=== PATIENT | male | born 1955 | race Hispanic/Latino ===

== ENCOUNTER 2016-08-13 09:33 | Inpatient (IN) | payer OTHER ==
[2016-08-13 10:11] VITALS: BMI 29.0
[2016-08-13] MEDS ORDERED: Sodium Chloride 0.9% 1,000 ML IV STA (10:17)
[2016-08-13] MEDS: Sodium Chloride 0.9% 1,000 ML IV SCH ×3 (10:25→22:24)
[2016-08-13 10:31] LABS: HEMATOCRIT 50.6 % (42.0-52.0); MEAN CORPUSCULAR HEMOGLOBIN 30.6 pg (25.0-35.0); MEAN CORPUSCULAR HGB CONC 34.8 g/dl (31.0-37.0); MEAN PLATELET VOLUME 10.7 fl (7.0-11.0); RED CELL DISTRIBUTION WIDTH 13.4 % (11.5-14.5); WHITE BLOOD COUNT 16.1 10^3/ul (4.5-11.0)
--- NOTE | 2016-08-13 10:38 | ED PDOC ---
Arrival/HPI - General Historian: Patient - History of Present Illness Time/Duration: 24 hours <Ayleen Ma - Last Filed: 08/13/16 12:09> <Tony Lee DO - Last Filed: 08/13/16 12:26> - General Time Seen by Provider: 08/13/16 09:51 - History of Present Illness Narrative History of Present Illness (Text): 08/13/16 10:35 This is a 60Y M with PMH developmental delay, CHF, ICD placement, HTN, CKD stage 4, hypothyroid and hyperparathyroidism here for low BP for the past 2 days. [facility] His photograph developer was at bedside. Yesterday his SBP was in the 60s. He had an appointment with PMD with Dr. Meyer yesterday, but refused to come in. He was noted to have low BP this AM. He was asymptomatic the past 2 days. He denies CP, SOB, n/v/d, numbness/tingling, fever , chills, dysuria or hematuria. 08/13/16 10:39 08/13/16 11:04 (Ayleen Ma) Past Medical History - Provider Review Nursing Documentation Reviewed: Yes - Infectious Disease Hx of Infectious Diseases: None - Tetanus Immunization Tetanus Immunization: Unknown - Cardiac Hx Cardiac Disorders: Yes Hx Congestive Heart Failure: Yes Hx Hypertension: Yes - Pulmonary Hx Chronic Obstructive Pulmonary Disease (COPD): Yes - Neurological Hx Neurological Disorder: No - HEENT Hx HEENT Disorder: No - Renal Hx Renal Failure: Yes - Endocrine/Metabolic Hx Diabetes Mellitus Type 1: Yes Hx Hypothyroidism: Yes - Integumentary Hx Dermatological Disorder: Yes Other/Comment: 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 - Surgical History Hx Cardiac Catheterization: Yes Hx Coronary Stent: Yes Other/Comment: cardiac cath, pacemaker with internal defribilator - Anesthesia Hx Anesthesia: Yes Hx Anesthesia Reactions: No Hx Malignant Hyperthermia: No - Suicidal Assessment Feels Threatened In Home Enviroment: No <Ayleen Ma - Last Filed: 08/13/16 12:09> Family/Social History - Physician Review Nursing Documentation Reviewed: Yes Family/Social History: No Known Family HX Smoking Status: Never Smoked Hx Alcohol Use: No Hx Substance Use: No Hx Substance Use Treatment: No <Ayleen Ma - Last Filed: 08/13/16 12:09> Allergies/Home Meds <Ayleen Ma - Last Filed: 08/13/16 12:09> <Tony Lee DO - Last Filed: 08/13/16 12:26> Allergies/Adverse Reactions: Allergies No Known Allergies Allergy (Verified 08/13/16 10:06) Home Medications: Home Meds Medication Instructions Recorded Confirmed Aspirin [Aspirin Chewable] 81 mg PO DAILY 01/03/16 08/13/16 Atorvastatin [Lipitor] 20 mg PO DAILY 01/03/16 08/13/16 Carvedilol [Coreg] 25 mg PO BID 01/03/16 08/13/16 Clopidogrel [Plavix] 75 mg PO DAILY 01/03/16 08/13/16 Furosemide [Lasix] 80 mg PO DAILY 01/03/16 08/13/16 Insulin Glargine,Hum.rec.anlog 25 unit SC DAILY 01/03/16 08/13/16 [Toujeo Solostar] Levothyroxine [Synthroid] 125 mcg PO DAILY 01/03/16 08/13/16 Sodium Bicarbonate 650 mg PO DAILY 01/03/16 08/13/16 glyBURIDE [Micronase] 2.5 mg PO DAILY 01/03/16 08/13/16 Review of Systems - Physician Review All systems were reviewed & negative as marked: Yes - Review of Systems Constitutional: Normal. absent: Weight Change, Fevers Eyes: Normal. absent: Vision Changes ENT: Normal. absent: Hearing Changes, Sore Throat Respiratory: Normal. absent: SOB, Cough Cardiovascular: Normal. absent: Chest Pain, Palpitations, Edema Gastrointestinal: Normal. absent: Abdominal Pain, Diarrhea, Nausea, Vomiting Genitourinary Male: Normal. absent: Dysuria, Frequency, Hematuria Musculoskeletal: Normal. absent: Arthralgias Skin: Normal. absent: Rash, Pruritis Neurological: Normal. absent: Headache, Dizziness, Focal Weakness Endocrine: Normal. absent: Diaphoresis Hemo/Lymphatic: Normal. absent: Easy Bleeding, Easy Bruising Psychiatric: Normal. absent: Anxiety, Depression <Ayleen Ma Last Filed: 08/13/16 12:09> Physical Exam Vital Signs Reviewed: Yes Temperature: Afebrile Blood Pressure: Hypotensive Pulse: Bradycardic Respiratory Rate: Normal Appearance: Positive for: Well-Appearing, Non-Toxic, Comfortable Pain Distress: None Mental Status: Positive for: Alert and Oriented X 3 Finger Stick Blood Glucose: 185 - Systems Exam Head: Present: Atraumatic, Normocephalic Pupils: Present: PERRL Extroacular Muscles: Present: EOMI Conjunctiva: Present: Normal Mouth: Present: Moist Mucous Membranes Neck: Present: Normal Range of Motion Respiratory/Chest: Present: Clear to Auscultation, Good Air Exchange. No: Respiratory Distress, Accessory Muscle Use Cardiovascular: Present: Regular Rate and Rhythm, Normal S1, S2. No: Murmurs Abdomen: Present: Normal Bowel Sounds. No: Tenderness, Distention, Peritoneal Signs Back: Present: Normal Inspection Upper Extremity: Present: Normal Inspection. No: Cyanosis, Edema Lower Extremity: Present: Normal Inspection, Erythema (bilateral erythema ). No : Edema Neurological: Present: GCS=15, CN II-XII Intact, Speech Normal Skin: Present: Warm, Dry, Normal Color. No: Rashes Psychiatric: Present: Alert, Oriented x 3, Normal Insight, Normal Concentration <Ayleen Ma Last Filed: 08/13/16 12:09> <Josesheree Tony Last Filed: 08/13/16 12:26> Vital Signs Temp Pulse Resp BP Pulse Ox 08/13/16 11:20 50 L 18 100/67 97 08/13/16 09:34 97.6 F 51 L 18 89/58 L 97 Medical Decision Making Re-evaluation Time: 11:08 Reassessment Condition: Improved - Lab Interpretations I have reviewed the lab results: Yes Interpretation: Abnormal lab values - RAD Interpretation Guncotton Packer: Radiologist - EKG Interpretation Interpreted by ED Physician: Yes Type: 12 lead EKG Comparison: Similar to previous EKG <Ayleen Ma Last Filed: 08/13/16 12:09> - Lab Interpretations I have reviewed the lab results: Yes <Tony Lee DO - Last Filed: 08/13/16 12:26> ED Course and Treatment: 08/13/16 10:39 Impression: This is a 60Y M with PMH developmental delay, CHF, ICD placement, HTN, hypothyroid and hyperparathyroidism here for low BP for the past 2 days Differential Diagnosis included but are not limited to: dehydration vs. hypothyroidism vs. medication Plan: -- CBC, CMP, TSH, BNP -- EKG -- CXR -- IVF -- Reassess and disposition Prior Visits: Notes and results from previous visits were reviewed. 08/13/16 10:40 Progress Note: Patient found to be hyperkalemia, acute renal failure without EKG changes. Spoke with Dr. Meyer who is aware of potassium and renal failure, who will admit the patient into his service. (Ayleen Ma) Patient seen and examined with resident. Came up with treatment and disposition plan with resident. The patient is a 60 year old male who presents to the emergency department complaining of a low blood pressure. Additional HPI details as noted by the resident. Physical examination reveals no acute findings. EKG, Chest X-ray, Labs and Urinalysis ordered to rule out hypothyroidism vs. electrolyte imbalance vs. dehydration. Case discussed with Dr. Meyer, who is aware and agrees with the plan to admit the patient to telemetry for renal failure and hyperkalemia. The result and plans where discussed with the patient, who expresses understanding. Patient was given the opportunity to ask question, all questions were answered and there is agreement with the plan to be admitted to the hospital. (Tony Lee DO) - Lab Interpretations Lab Results: 08/13/16 10:10 08/13/16 10:10 Lab Results 08/13/16 11:51: pO2 27 L, VBG pH 7.21 L, VBG pCO2 46.0, VBG HCO3 18.4 L, VBG Total CO2 19.8 L, VBG O2 Sat (Calc) 53.8, VBG Base Excess -9.4 L, VBG Potassium 7.1 H*, Glucose 218 H, Lactate 1.4, FiO2 21.0, Sodium 133.0, Chloride 106.0, Venous Blood Potassium 7.1 H* 08/13/16 10:10: Sodium 139, Potassium 5.8 H* D, Chloride 102, Carbon Dioxide 17 L, Anion Gap 26 H, BUN 86 H, Creatinine 5.8 H, Est GFR ( Amer) 12, Est GFR (Non-Af Amer) 10, Random Glucose 214 H, Calcium 9.8, Total Bilirubin 1.1, AST 25, ALT 17, Alkaline Phosphatase 91, Total Protein 9.3 H, Albumin 4.5, Globulin 4.8, Albumin/Globulin Ratio 0.9 L 08/13/16 10:10: WBC 16.1 H D, RBC 5.75, Hgb 17.6, Hct 50.6, MCV 88.0, MCH 30.6, MCHC 34.8, RDW 13.4, Plt Count 398, MPV 10.7 08/13/16 10:07: POC Glucose (mg/dL) 185 H - RAD Interpretation Narrative RAD Interpretations (Text): 08/13/16 12:11 CXR showed no active disease. (Ayleen Ma) Radiology Orders: 08/13/16 10:17 CHEST PORTABLE [RAD] Stat - EKG Interpretation EKG Interpretation (Text): 08/13/16 10:43 HR 98, QTC prolonged. NSR. L axis deviation (Ayleen Ma) - Medication Orders Current Medication Orders: Sodium Chloride (Sodium Chloride 0.9%) 1,000 mls @ 125 mls/hr IV .Q8H ALFONSO Last Admin: 08/13/16 10:25 Dose: 125 mls/hr Discontinued Medications Sodium Chloride (Sodium Chloride 0.9%) 1,000 mls @ 999 mls/hr IV .Q1H1M STA Stop: 08/13/16 11:17 Last Admin: 08/13/16 10:20 Dose: 999 mls/hr Sodium Bicarbonate (Sodium Bicarbonate (8.4%) 50 Meq Syringe) 50 meq IVP ONCE ONE Stop: 08/13/16 12:13 Sodium Polystyrene Sulfonate (Kayexalate Oral Susp) 30 gm PO STAT STA Stop: 08/13/16 11:03 Last Admin: 08/13/16 11:38 Dose: 30 gm Disposition/Present on Arrival - Present on Arrival Any Indicators Present on Arrival: No History of DVT/PE: No History of Uncontrolled Diabetes: No Urinary Catheter: No History of Decub. Ulcer: No History Surgical Site Infection Following: None - Disposition Have Diagnosis and Disposition been Completed?: Yes Disposition Time: 12:00 Patient Plan: Admission <Ayleen Ma - Last Filed: 08/13/16 12:09> <Tony Lee DO - Last Filed: 08/13/16 12:26> - Disposition Diagnosis: Renal failure, Hyperkalemia Disposition: HOSPITALIZED Patient Problems: Current Active Problems Problem Status Onset Renal failure Acute Hyperkalemia Acute Condition: FAIR Print Language: SLOVAK Referrals: Asa Meyer JD, MD [Primary Care Provider] - Follow up with primary
[2016-08-13 10:52] LABS: ALB/GLOB RATIO 0.9 (1.1-1.8); BILIRUBIN,TOTAL 1.1 mg/dL (0.2-1.3); CALCIUM 9.8 mg/dL (8.4-10.5); TOTAL PROTEIN 9.3 g/dL (5.8-8.3)
--- NOTE | 2016-08-13 11:00 | RAD ---
HISTORY: chf COMPARISON: 01/03/2016 FINDINGS: LUNGS: No active pulmonary disease. PLEURA: No significant pleural effusion identified, no pneumothorax apparent. CARDIOVASCULAR: Moderate cardiomegaly OSSEOUS STRUCTURES: No significant abnormalities. VISUALIZED UPPER ABDOMEN: Normal. OTHER FINDINGS: Single lead pacemaker IMPRESSION: No active disease.
[2016-08-13 11:02] LABS: POTASSIUM 5.8 mmol/L (3.6-5.0)
[2016-08-13] MEDS ORDERED: Sod Polystyrene Sulf 15 gm/60 ml Oral Susp PO STA (11:02)
[2016-08-13 12:07] LABS: VENOUS BLOOD GAS BASE EXCESS -9.4 mmol/L (0.0-2.0); VENOUS BLOOD PH 7.21 (7.32-7.43)
[2016-08-13] MEDS ORDERED: Sodium Bicarbonate (8.4%) 50 Meq Syringe IVP ONE (12:12)
--- NOTE | 2016-08-13 15:15 | CARD ---
APPROVED REPORT EKG Measurement Heart [id number] <Conclusion> Normal sinus rhythm Left axis deviation Septal infarct, age undetermined Possible Lateral infarct, age undetermined Inferior infarct, age undetermined Abnormal ECG
[2016-08-13 15:53] LABS: PH,URINE 5.5 (4.7-8.0); URINE BILIRUBIN NEGATIVE (NEGATIVE); URINE BLOOD TRACE-LYSED (NEGATIVE); URINE GLUCOSE (UA) NEGATIVE (NEGATIVE); URINE KETONE NEGATIVE (NEGATIVE); URINE LEUKOCYTE ESTERASE NEGATIVE Leu/uL (NEGATIVE); URINE PROTEIN 30 mg/dL (<30 mg/dL); URINE UROBILINOGEN 0.2 E.U./dL (<1 E.U./dL)
[2016-08-13 15:58] LABS: URINE APPEARANCE CLEAR (CLEAR); URINE COLOR YELLOW (YELLOW)
[2016-08-13 16:09] LABS: URINE BACTERIA TRACE (NEG); URINE EPITHELIAL CELLS 0 - 2 /hpf (0-5); URINE RBC 0 - 2 /hpf (0-2); URINE WBC 0 - 2 /hpf (0-6)
[2016-08-13] MEDS ORDERED: Pneumococcal 23-Valent Vaccine IM ONE (16:32)
[2016-08-13] MEDS: Insulin Reg-LOW-Coverage SC SCH ×2 (16:51→22:10)
--- NOTE | 2016-08-13 16:56 | HP ---
HISTORY OF PRESENT ILLNESS: The patient is a 60-year-old male admitted through the Emergency Departm ent on 08/13/2016 with hypotension. On evaluation, the patient was found to be in acute renal failur e superimposed on chronic renal insufficiency and the patient is admitted to the telemetry unit for f urther observation and management. PATIENT'S PAST MEDICAL HISTORY: Includes coronary artery disease, status post PTCA and stent placeme nt x 2. The patient is status post pacemaker placement approximately 2 years ago. The patient has a history of hypothyroidism, CHF and developmental disability as well as type 2 diabetes mellitus, ins ulin-requiring. PAST SURGICAL HISTORY: Includes benign prostatic hypertrophy. ALLERGIES: The patient has no known allergies. CURRENT MEDICATIONS: Include Coreg 25 mg twice daily, Lipitor 20 mg daily, Ecotrin 81 mg daily, Plav ix 75 mg daily, glyburide 5 mg daily, insulin glargine 25 units at bedtime, Synthroid 125 mcg daily, sodium bicarbonate 650 mg daily and Flomax 0.4 mg daily. SOCIAL HISTORY: There is no history of tobacco, alcohol or drug use. FAMILY HISTORY: Noncontributory. REVIEW OF SYSTEMS: The patient denies any chest pain or shortness of breath. There is no cough, no fever, no chills, no dysuria and no hematuria. The patient lives in an adult halfway. PHYSICAL EXAMINATION: GENERAL: The patient is a well-developed male in no acute distress. VITAL SIGNS: Blood pressure 104/71, pulse 55, temperature 97.6 and respiratory rate 18. HEENT: Head is normocephalic and atraumatic. Pupils equal, round and reactive to light. Extraocula r movements intact. NECK: Supple, with no thyromegaly. No carotid bruit. LUNGS: Clear to auscultation and percussion. HEART: Regular rate and rhythm. There is permanent pacemaker in the left chest wall, which is intac t. ABDOMEN: Soft and nontender. Bowel sounds are normoactive. EXTREMITIES: Without cyanosis, clubbing or edema. NEUROLOGIC: The patient is awake and responsive without focal sensory or motor deficits. SKIN: Warm and dry. LABORATORY DATA: WBC 16.1, hemoglobin 17.6 and hematocrit 50.6. Sodium 139, potassium 4.8, chloride 102, CO2 17, BUN 86, creatinine 5.8 and glucose 214. Chest x-ray shows no active disease. IMPRESSION: 1. Acute renal failure superimposed on chronic renal insufficiency, probably secondary to dehydratio n. Rule out underlying sepsis. 2. Coronary artery disease status post stent placement x 2. 3. Congestive heart failure. 4. Type 2 diabetes mellitus. 5. Hypothyroidism. 6. Benign prostatic hypertrophy. 7. Developmental disability. PLAN: The patient is admitted to the telemetry unit. Will obtain a renal consult with Dr. Rom chamberlain/Analia. Will start IV hydration, monitor Accu-Cheks with regular insulin coverage and social wor k for discharge planning. Asa Meyer JD, MD cc: [id number] TT: 08/13/2016 16:56:09 sn
--- NOTE | 2016-08-13 20:43 | CP.PCM.PN ---
Subjective - Date & Time of Evaluation Date of Evaluation: 08/13/16 Time of Evaluation: 20:36 - Subjective Subjective: In the beginning of my shift , nurse told me that patient had blood in urine. Beach catheter was inserted today in the ER. Later, on this shift nurse Flores tells me that patient had 4, 7 beats of runs of VTACH. Spoke to breeding technician Timi, as per whom patient has had 10 pvc's per minute since admission to floor I evaluated patient at bedside. He has no complaints. Denies chest pain, sob, nausea, sweating , palpitation. Patient had received Kayaxealte earlier for hyperkalemia. Medical record was reviewed. This 60 year old white male was admitted with low blood pressure for 2 days. Has PMH of CHF, CAD, HTN, cardiac catheterization,ICD placement, hypothyroidism ,hyperparathyroidism, CKD ,developmental delay. Objective - Vital Signs/Intake and Output Vital Signs (last 24 hours): Temp Pulse Resp BP Pulse Ox 97.6 F 76 20 136/58 L 98 08/13/16 19:57 08/13/16 19:57 08/13/16 19:57 08/13/16 19:57 08/13/16 19:57 Intake and Output: 08/13/16 08/14/16 18:59 06:59 Intake Total 300 Output Total 625 Balance -325 - Medications Medications: Current Medications Aspirin (Ecotrin) 81 mg PO DAILY ALFONSO Clopidogrel Bisulfate (Plavix) 75 mg PO DAILY ALFONSO Sodium Chloride (Sodium Chloride 0.9%) 1,000 mls @ 125 mls/hr IV .Q8H ALFONSO Last Admin: 08/13/16 20:27 Dose: Not Given Insulin Human Regular (Humulin R Low) 0 units SC ACHS ALFONSO PRN Reason: Protocol - Constitutional Appears: Well, No Acute Distress - Head Exam Head Exam: ATRAUMATIC, NORMAL INSPECTION, NORMOCEPHALIC - Eye Exam Eye Exam: Normal appearance - ENT Exam ENT Exam: Normal External Ear Exam - Neck Exam Neck Exam: Normal Inspection - Respiratory Exam Respiratory Exam: NORMAL BREATHING PATTERN - Cardiovascular Exam Cardiovascular Exam: absent: JVD - GI/Abdominal Exam GI & Abdominal Exam: Normal Bowel Sounds - Rectal Exam Rectal Exam: Deferred - Extremities Exam Extremities Exam: Normal Inspection - Back Exam Back Exam: NORMAL INSPECTION - Neurological Exam Neurological Exam: Alert, Oriented x3 - Psychiatric Exam Psychiatric exam: Normal Affect, Normal Mood - Skin Skin Exam: Normal Color Assessment and Plan - Assessment and Plan (Free Text) Assessment: Hematuria.- Iatrogentic? Non sustained VTACH. PVC's. Hyperkalemia. CAD. HTN. CHF. Hypothyroidism. Hyperparthyroidism. Plan: Continue present management. CBC. BMP, Magnesium,PHOS, troponin level. EKG------------->Sinus rhythm with PVC, T abnormality. Will correct electrolyte deficiency if any. May need consultation with Cardiology-.
[2016-08-13 21:21] LABS: ADD MANUAL DIFF? NO
[2016-08-13 21:25] LABS: BASO # 0.01 K/mm3 (0.0-2.0); BASO % 0.1 % (0.0-3.0); EOS # 0.6 (0.0-0.7); EOS % 3.6 % (1.5-5.0); GRAN # 11.82 (1.4-6.5); GRAN % 74.2 % (50.0-68.0); HEMATOCRIT 46.2 % (42.0-52.0); LYMPH # 1.9 (1.2-3.4); LYMPH % 11.7 % (22.0-35.0); MEAN CORPUSCULAR HEMOGLOBIN 30.9 pg (25.0-35.0); MEAN CORPUSCULAR HGB CONC 35.1 g/dl (31.0-37.0); MEAN PLATELET VOLUME 10.5 fl (7.0-11.0); MONO # 1.7 (0.1-0.6); MONO % 10.4 % (1.0-6.0); PLATELET COUNT 373 10^3/uL (120.0-450.0); RED CELL DISTRIBUTION WIDTH 13.2 % (11.5-14.5); WHITE BLOOD COUNT 15.9 10^3/ul (4.5-11.0)
[2016-08-13 21:35] LABS: CALCIUM 8.7 mg/dL (8.4-10.5); MAGNESIUM 1.8 mg/dL (1.7-2.2); PHOSPHOROUS 4.5 mg/dL (2.5-4.5); POTASSIUM 4.8 mmol/L (3.6-5.0)
[2016-08-13 21:46] LABS: TROPONIN I 0.05 ng/mL
[2016-08-14] MEDS: Sodium Chloride 0.9% 1,000 ML IV SCH ×3 (03:59→18:25)
[2016-08-14 06:50] LABS: ADD MANUAL DIFF? NO
[2016-08-14 07:12] LABS: ALB/GLOB RATIO 0.9 (1.1-1.8); BILIRUBIN,TOTAL 0.9 mg/dL (0.2-1.3); CALCIUM 8.4 mg/dL (8.4-10.5); POTASSIUM 5.1 mmol/L (3.6-5.0); TOTAL PROTEIN 7.5 g/dL (5.8-8.3)
[2016-08-14 07:18] LABS: TROPONIN I 0.04 ng/mL
[2016-08-14 07:26] LABS: BASO # 0.02 K/mm3 (0.0-2.0); BASO % 0.1 % (0.0-3.0); EOS # 0.7 (0.0-0.7); EOS % 4.7 % (1.5-5.0); GRAN # 11.19 (1.4-6.5); GRAN % 75.8 % (50.0-68.0); HEMATOCRIT 46.4 % (42.0-52.0); LYMPH # 1.6 (1.2-3.4); LYMPH % 10.5 % (22.0-35.0); MEAN CELL VOLUME 88.9 fL (80.0-105.0); MEAN CORPUSCULAR HEMOGLOBIN 30.8 pg (25.0-35.0); MEAN CORPUSCULAR HGB CONC 34.7 g/dl (31.0-37.0); MEAN PLATELET VOLUME 10.5 fl (7.0-11.0); MONO # 1.3 (0.1-0.6); MONO % 8.9 % (1.0-6.0); PLATELET COUNT 366 10^3/uL (120.0-450.0); RED CELL DISTRIBUTION WIDTH 13.4 % (11.5-14.5); WHITE BLOOD COUNT 14.8 10^3/ul (4.5-11.0)
[2016-08-14] MEDS: Insulin Reg-LOW-Coverage SC SCH ×4 (08:27→21:48)
[2016-08-14 11:30] LABS: MAGNESIUM 1.7 mg/dL (1.7-2.2); PHOSPHOROUS 4.1 mg/dL (2.5-4.5)
--- NOTE | 2016-08-14 11:39 | CON ---
DATE: 08/14/2016 The patient admitted for Dr. Asa Meyer. REFERRING PHYSICIAN: Dr. Asa Meyer. REASON FOR CONSULTATION: Evaluation of a patient who presents with acute renal failure superimposed on chronic kidney disease stage III/IV, unknown to me. HISTORY OF PRESENT ILLNESS: The patient is a 60-year-old white male with a history of a developmental disability, 5-year history of diabetes, currently on insulin, history of ASHD, status post PTCA stent x 2, history of permanent pacemaker, AICD for ventricular tachycardia, history of hypothyroidism, past history of CHF, history of hypertension, who states that he has had diarrhea at home and intermittent nausea and vomiting. The patient presented to the Emergency Room with an elevated BUN and creatinine in the setting of hyperkalemia. The patient's BUN was 86 with a creatinine of 5.8 and a potassium of 5.8. The patient's baseline BUN is in the 35-40 range with a baseline creatinine in the low to mid 2 range. We are asked to evaluate patient for his acute renal failure superimposed on chronic kidney disease stage III/IV and to help treat his hyperkalemia in the setting of metabolic acidosis. Of note, the patient had a negative abdominal CT scan of his kidneys in 11/2015. PAST MEDICAL HISTORY: Significant for chronic kidney disease stage III/IV with a baseline creatinine in the low to mid 2 range and a baseline BUN in the 35-40 range, history of ASHD, status post PTCA stent x 2, history of permanent pacemaker with AICD, history of mitral regurgitation, history of hypothyroidism , history of CHF, history of NIDDM now on insulin of 5 years' duration, history of developmental disability and history of hypertension. MEDICATIONS: At home include that of Micronase, Flomax, sodium bicarbonate, Synthroid, insulin, Lasix, Plavix, Coreg, Lipitor, and aspirin. ALLERGIES: No known allergies to medications. CURRENT MEDICATIONS IN HOSPITAL: Include that of aspirin, insulin, Plavix, and normal saline at 125 mL an hour. SOCIAL HISTORY: No history of cigarette smoking, no history of alcohol use. FAMILY HISTORY: Father of complications of heart disease. Mother had degenerative osteoarthritis. REVIEW OF SYSTEMS: GENERAL: The patient states appetite and weight have been stable until recently. ENT: Denies any hearing or visual problems. PULMONARY: No shortness of breath. No COPD. Past history of CHF. CARDIAC: History as noted above. GASTROINTESTINAL: History of diarrhea at home, history of intermittent nausea and vomiting over the last several days. No abdominal pain. GENITOURINARY: Past history of chronic kidney disease as noted above. ENDOCRINE: History of diabetes as noted above. MUSCULOSKELETAL: No complaints. NEUROLOGIC: No history of TIA, seizures, CVA or syncope. HEMATOLOGIC AND ONCOLOGIC: No history of anemia or malignancy. PSYCHIATRIC: History is negative. PHYSICAL EXAMINATION: GENERAL: The patient is currently seen on telemetry. He is completely comfortable lying supine in bed. IV fluids are infusing. VITAL SIGNS: Blood pressure 111/73, temperature is 98.4, respiratory rate 20 with a pulse of 61. HEENT: Shows him to be normocephalic, atraumatic. Conjunctivae are pink. Sclerae are nonicteric. Posterior pharynx is normal. NECK: Supple, no neck vein distention. No thyromegaly, no lymphadenopathy, no bruits. CHEST: Clear to auscultation and percussion. No rales, no rhonchi, no wheezing. CARDIOVASCULAR: Shows a regular rate and rhythm with MR, no S3, no S4, no rub. ABDOMEN: Soft. Bowel sounds normal. No rebound, no guarding, no masses. No tenderness. EXTREMITIES: Show no cyanosis, no clubbing or edema. Distal lower extremity pulses are 1+ to 2+ bilaterally. NEUROLOGIC: Shows him to be alert, oriented x 3 with no gross focal motor or sensory deficits noted. LABORATORY DATA AND IMAGING: Admitting EKG showed a normal sinus rhythm. Chest x-ray showed no acute pulmonary disease. Abdominal CT scan done in 2015 showed normal kidneys. Labs: CBC: White blood cell count 14.8, was 16.1 on admission, hemoglobin 16.1 with a platelet count of 366,000. Chemistries showed a sodium of 139 on admission with a potassium of 5.8, BUN 86 with a creatinine of 5.8, CO2 of 17, anion gap was 26. Presently, sodium is 141, potassium of 5.1, chloride 113 with a CO2 of 18. BUN 73 with a creatinine of 4.0. Glucose is 79. Troponins are negative. Liver enzymes are normal. Albumin is 3.6. TSH level was 0.23. Urine showed trace protein. Otherwise, no abnormalities. ASSESSMENT: 1. Acute renal failure superimposed on chronic kidney disease stage III/IV. This is likely in the setting of continued use of diuretic therapy for his history of congestive heart failure coupled with diarrhea and intermittent nausea and vomiting over the last several days. With IV fluid hydration being given cautiously, I expect his BUN and creatinine to fall back to baseline levels. 2. Hyperkalemia with metabolic acidosis. The patient may continue sodium bicarbonate supplements. If necessary, we could add sodium bicarbonate to the IV fluid. His potassium level has improved. The patient is receiving no potassium supplements and the patient is not receiving PATTY inhibitors or angiotensin receptor allyn therapy. 3. History of non-insulin dependent diabetes mellitus, now insulin-requiring. The patient's glucose control appears to be acceptable. 4. History of arteriosclerotic heart disease status post percutaneous transluminal coronary angioplasty/stent x 2, history of permanent pacemaker, history of automatic implantable cardioverter-defibrillator with mitral regurgitation. These all appear to be stable, being followed by cardiology. 5. Past history of hypertension. 6. History of hypothyroidism. The patient will continue thyroid replacement therapy as per Dr. Meyer. 7. History of hyperlipidemia. The patient will continue statin therapy. 8. History of developmental disability. This appears to be stable. 9. NIDDM continue Insulin. PLAN: 1. Follow accurate I's and O's and daily weights. 2. Continue IV fluid hydration cautiously in light of his history of CHF, possible cardiomyopathy and ASHD. 3. Monitor for any further diarrhea, nausea, vomiting and treat accordingly. 4. Once the patient hits his baseline creatinine in the mid 2 range, I will get a 24-hour urine for creatinine clearance and protein if the patient is still in the hospital. 5. Continue sliding scale insulin. 6. If BUN and creatinine continue to fall, no renal imaging studies are necessary as he had a CT scan done in the fall of 2015. 7. Continue to hold Lasix at this time. 8. Follow daily labs and continue to monitor patient on telemetry. Rom Winston MD cc: [id number] TT: 08/14/2016 11:38:56 Confirmation # [id number] Dictation # [id number] john paul SANCHEZ
--- NOTE | 2016-08-14 13:12 | PN ---
DATE: 08/14/2016 SUBJECTIVE: The patient is sitting up in bed in no acute distress. He is awake and responsive. Den ies any chest pain or shortness of breath. OBJECTIVE: VITAL SIGNS: Blood pressure 111/73, temperature 98.4, pulse 67, respiratory rate 20. LUNGS: Clear. HEART: Regular rate and rhythm. ABDOMEN: Soft, nontender, bowel sounds are normoactive. EXTREMITIES: Without cyanosis, clubbing, or edema. NEUROLOGIC: The patient is awake and oriented x 3 without focal sensory or motor deficits. SKIN: Warm and dry. Beach catheter is intact with blood-tinged urine. LABORATORY DATA: WBC is 14.8, hemoglobin 16.1, hematocrit 46.4. Sodium 141, potassium 5.1, chloride 113, bicarbonate 18, BUN 73, creatinine 4.0, glucose 79. IMPRESSION: 1. Acute renal failure superimposed on chronic kidney disease secondary to dehydration from diuretic s, diarrhea and uncontrolled glucose levels. 2. Coronary artery disease status post stent placement x 2. 3. Congestive heart failure. 4. Type 2 diabetes mellitus. 5. Hypothyroidism. 6. Benign prostatic hypertrophy. 7. Developmental disability. PLAN: Renal consult, Dr. Winston, is appreciated. Continue IV fluids. Monitor electrolytes, BUN an d creatinine. Will discontinue the Beach catheter, the bloody urine is probably secondary to trauma from Beach insertion. Social work for discharge planning. Asa Meyer JD, MD cc: [id number] TT: 08/14/2016 13:11:06 Confirmation # [id number] Dictation # [id number] george
--- NOTE | 2016-08-14 14:06 | CARD ---
APPROVED REPORT EKG Measurement Heart [id number] [place] 208P51 [id number] <Conclusion> Sinus rhythm with occasional and consecutive premature ventricular complexes Left axis deviation Inferior infarct, age undetermined Cannot rule out Anterior infarct, age undetermined T wave abnormality, consider lateral ischemia Abnormal ECG
--- NOTE | 2016-08-14 15:47 | CARD ---
APPROVED REPORT EXAM: Two-dimensional and M-mode echocardiogram with Doppler and color Doppler. 2D DIMENSIONS IVSd1.4 (0.7-1.1cm)LVDd6.1 (3.9-5.9cm) PWd1.5 (0.7-1.1cm)LVDs5.1 (2.5-4.0cm) FS (%) 16.6 %LVEF (%)34.2 (>50%) M-Mode DIMENSIONS Left Atrium (MM)4.40 (2.5-4.0cm)Aortic Root3.40 (2.2-3.7cm) Aortic Cusp Exc.2.10 (1.5-2.0cm) Aortic Valve AoV Peak Oenkxyif901.0cm/sAoV VTI20.0cmAO Peak GR.6mmHg LVOT Peak Xlyyenjn47.5cm/sLVOT VTI11.90cmAO Mean GR.4mmHg Mitral Valve MV E Uacwimnw987.0cm/sMV E Peak Gr.107mmHg Tricuspid Valve TR Peak Upveuril855wu/sRAP UKBYJBWX50mxUtNS Peak Gr.38mmHg KWZO15deDf LEFT VENTRICLE The Left Ventricle is mildly dilated. There is mild concentric left ventricular hypertrophy. The systolic function is moderately impaired.EF-25-30% There is global moderate There is moderate to severe hypokinesis in the apical anterior wall. hypokinesis of the left ventricle. Transmitral Doppler flow pattern is Grade III-reversible restrictive diastolic dysfunction. No left ventricle thrombus noted on this study. There is no ventricular septal defect visualized. There is no left ventricular aneurysm. There is no mass noted in the left ventricle. RIGHT VENTRICLE The right ventricle is mildly dilated. There is normal right ventricular wall thickness. Systolic function is mildly to moderately reduced. There is a pacemaker lead in the right ventricle. ATRIA The left atrium is moderately dilated. The right atrium is mildly dilated. The interatrial septum is intact with no evidence for an atrial septal defect. AORTIC VALVE The aortic valve is thickened but opens well. There is trace aortic regurgitation. There is no aortic valvular stenosis. There is no aortic valvular vegetation. MITRAL VALVE The mitral valve is thickened but opens well. Mitral regurgitation is mild. There is no mitral valve stenosis. There is no evidence of mitral valve prolapse. TRICUSPID VALVE The tricuspid valve leaflets are thickened , but open well. There is moderate tricuspid regurgitation.RVSP-48 There is no tricuspid valve stenosis. There is no tricuspid valve prolapse or vegetation. PULMONIC VALVE The pulmonary valve is normal in structure. There is trace pulmonic valvular regurgitation. There is no pulmonic valvular stenosis. GREAT VESSELS The aortic root is normal in size. The ascending aorta is normal in size. The pulmonary artery is normal. The IVC is normal in size and collapses >50% with inspiration. PERICARDIAL EFFUSION There is no pleural effusion. There is no pericardial effusion. <Conclusion> Four chamber dilatation. Ef-25-30% Mild MR Moderate TR. RVSP-48 mmoF hg. No PE Trace AR/PI. no thrombus.
--- NOTE | 2016-08-14 17:48 | CON ---
DATE: 08/14/2016 REASON FOR CONSULTATION AND FOLLOWUP: Coronary artery disease, history of AICD, cardiomyopathy, chronic specialist anita kidney disease, admitted with hypotension and acute kidney injury. BRIEF CLINICAL HISTORY: This is a 60-year-old male with past medical history significant for coronar y artery disease, status post stent, status post AICD, hypothyroidism, history of chronic kidney dise ase. PAST MEDICAL HISTORY: Significant for as mentioned, history of coronary artery disease, status post left anterior descending, cardiomyopathy, history of AICD, history of DVT in the past, history of men jensen retardation, history of CKD, baseline creatinine 2, admitted with acute decompensated kidney inju ry. ALLERGIES: No known drug allergies. SOCIAL HISTORY: Lives in a mcc, history of tobacco abuse and alcohol abuse. CURRENT MEDICATIONS: The patient at home taking glyburide, Flomax, sodium, levothyroxine, insulin, L asix, Plavix, carvedilol, atorvastatin, aspirin, PREVIOUS CARDIAC WORKUP: The patient is being followed at [facility] for cardiology by Dr. Wright, histor y of chronic renal insufficiency, history of 2 stents in LAD, history of a stent in LAD in 08/24/2013 , status post AICD there at [facility]. We will follow while the patient is here. REVIEW OF SYSTEMS: As per HPI. PHYSICAL EXAMINATION: VITAL SIGNS: Temperature afebrile, heart rate ____ blood pressure 113/73. HEENT: PERRLA. Extraocular muscles intact. NECK: Supple. No carotid bruits. No thyromegaly. CHEST: Clear to auscultation. HEART: S1, S2 regular. ABDOMEN: Soft. EXTREMITIES: Clubbing and cyanosis negative. BLOOD WORKUP: As follows: WBC 14.8, hemoglobin 16, hematocrit 46.4, platelet count 366. Chemistry shows sodium 141, potassium 5.____, chloride 113, carbon dioxide 18, anion gap of 15, BUN 73, creatin ine of 4. The patient last echocardiography 03/26/2014 that showed biatrial enlargement, global hypo kinesis, mild to moderate MR. Ejection fraction calculated to 16%. IMPRESSION: History of cardiomyopathy ischemic and nonischemic, history of percutaneous transluminal coronary angioplasty of left anterior descending 08/24/2013, history of automatic implantable cardio verter defibrillator, history of severe decreased left ventricular function, cardiomyopathy, chronic kidney disease on the top of the acute kidney injury, mild mental retardation, lives in a mcc. Continue IV fluid. We will get echo to assess LV function, lipid profile, TSH, hemoglobin A1c. Thank you, Dr. Meyer, for providing the opportunity in taking care of the patient. Will follow with you. Ayad Pineda MD cc: [id number] TT: 08/14/2016 17:48:39 Confirmation # [id number] Dictation # [id number] jn
[2016-08-15] MEDS: Sodium Chloride 0.9% 1,000 ML IV SCH (02:41)
[2016-08-15 06:31] LABS: ADD MANUAL DIFF? NO
[2016-08-15 06:43] LABS: BASO # 0.02 K/mm3 (0.0-2.0); BASO % 0.2 % (0.0-3.0); EOS # 0.6 (0.0-0.7); EOS % 5.8 % (1.5-5.0); GRAN # 7.27 (1.4-6.5); GRAN % 70.9 % (50.0-68.0); HEMATOCRIT 44.2 % (42.0-52.0); LYMPH # 1.3 (1.2-3.4); LYMPH % 12.9 % (22.0-35.0); MEAN CELL VOLUME 88.9 fL (80.0-105.0); MEAN CORPUSCULAR HEMOGLOBIN 30.2 pg (25.0-35.0); MEAN CORPUSCULAR HGB CONC 33.9 g/dl (31.0-37.0); MEAN PLATELET VOLUME 10.6 fl (7.0-11.0); MONO # 1.1 (0.1-0.6); MONO % 10.2 % (1.0-6.0); PLATELET COUNT 362 10^3/uL (120.0-450.0); RED CELL DISTRIBUTION WIDTH 13.4 % (11.5-14.5); WHITE BLOOD COUNT 10.3 10^3/ul (4.5-11.0)
[2016-08-15 06:49] LABS: ALB/GLOB RATIO 0.9 (1.1-1.8); BILIRUBIN,TOTAL 0.6 mg/dL (0.2-1.3); MAGNESIUM 1.3 mg/dL (1.7-2.2); PHOSPHOROUS 3.6 mg/dL (2.5-4.5); POTASSIUM 4.7 mmol/L (3.6-5.0); TOTAL PROTEIN 6.9 g/dL (5.8-8.3)
[2016-08-15] MEDS: Insulin Reg-LOW-Coverage SC SCH ×4 (08:13→22:16)
[2016-08-15] MEDS ORDERED: Magnesium Sulfate 2 GM in Sodium Chloride 0.9% 100 ML IV ONE (09:33)
[2016-08-15] MEDS: Levothyroxine 125 MCG TAB PO SCH (09:59)
--- NOTE | 2016-08-15 10:50 | PN ---
DATE: 08/15/2016 SUBJECTIVE: The patient is currently seen on telemetry. He is lying comfortable, supine in bed. He continues to complain of diarrhea. IV fluids are infusing. BUN and creatinine are falling with hyd ration. MEDICATIONS: List reviewed. The patient is currently on Coreg, Ecotrin, insulin, Lipitor, Plavix, s odium bicarbonate tablets, normal saline, and Synthroid. OBJECTIVE: INTAKE AND OUTPUT: Intake 2200, output 900. VITAL SIGNS: Blood pressure is 127/67 with a heart rate of 85, temperature 97.7, respiratory rate 20 with a pulse ox of 97%. HEENT: Shows him to be normocephalic, atraumatic. Conjunctivae are pink. Sclerae are nonicteric. NECK: Supple, no neck vein distention. No thyromegaly, no lymphadenopathy, no bruits. CHEST: Clear to auscultation and percussion. No rales, no rhonchi, no wheezing. CARDIOVASCULAR: Shows a regular rate and rhythm with MR. No S3, no S4, no rub. ABDOMEN: Soft. Bowel sounds normal. No rebound, no guarding, no masses, no tenderness. EXTREMITIES: Show no cyanosis, clubbing or edema. Distal lower extremity pulses are 1-2+ bilaterall y. LABORATORY DATA AND IMAGING: CBC: White blood cell count down to 10.3, hemoglobin stable at 15.0, p latelet count is 362,000. Chemistry showed sodium 142, potassium 4.7, chloride 116 with a CO2 of 17. BUN is 53 with a creatinine of 2.9. Glucose is 81. Calcium is 8.0 with an albumin of 3.3. It cor rects to normal. Phosphorus 3.6, magnesium level is low at 1.3. ASSESSMENT: 1. Acute renal failure superimposed on chronic kidney disease stage III/IV. The patient's baseline BUN is in the 35-40 range with a baseline creatinine in the mid 2 range. [facility] 86 and is now down to 53. Creatinine was 5.8. It is down now to 2.9, so he is rapi dly approaching baseline levels. The patient has been receiving IV fluid with normal saline. I am c oncerned about development of a mild metabolic acidosis. I will switch him over to IV fluid with sod ium bicarbonate and continue oral sodium bicarbonate supplements. 2. Diarrhea. GI evaluation as necessary. The patient continues to complain of perhaps more diarrhe a than when he came into the hospital. 3. History of non-insulin dependent diabetes mellitus, now on insulin. The patient's glucose contro l appears to be acceptable. 4. Hypomagnesemia. The patient will receive magnesium rider and we will not give him any oral magne sium supplements in light of the diarrhea. 5. History of arteriosclerotic heart disease, status post percutaneous transluminal coronary angiopl asty and stent x 2, history of permanent pacemaker, history of automatic implantable cardioverter-def ibrillator with mitral regurgitation, being followed by cardiology. These appear to all be stable. 6. History of hypertension. The patient's blood pressure control is in the low normal range on Core g therapy alone. 7. Hypothyroidism. The patient will continue thyroid replacement therapy. TSH level was 0.26. 8. History of hyperlipidemia. The patient is on statin therapy. 9. History of developmental disability. This appears to be stable. PLAN: 1. Perhaps GI evaluation for diarrhea if it persists. I will obtain a stool for Clostridium diffici le. 2. Continue IV fluid hydration. I will switch to half normal saline with 1 amp of sodium bicarbonat e and decrease the rate to 80 mL an hour. 3. IV mag rider as noted above. 4. Continue sliding scale insulin. 5. For right now, continue to hold Lasix. 6. Continue to monitor daily weights and accurate I's and O's, along with daily labs. 7. Continue to monitor patient on telemetry. Rom Winston MD cc: [id number] TT: 08/15/2016 10:50:24 Confirmation # [id number] Dictation # [id number] en
--- NOTE | 2016-08-15 12:15 | CARD ---
APPROVED REPORT EKG Measurement Heart [id number] [place] 202P65 [id number] <Conclusion> Sinus rhythm with occasional premature ventricular complexes Left axis deviation Septal infarct, age undetermined Inferior infarct, age undetermined T wave abnormality, consider lateral ischemia Abnormal ECG
--- NOTE | 2016-08-15 12:19 | PN ---
DATE: 08/15/2016 REASON FOR CONSULTATION AND FOLLOWUP: Coronary artery disease, history of AICD, cardiomyopathy, kidn ey disease, admitted with hypotension, acute kidney injury, having diarrhea. BRIEF CLINICAL HISTORY: This is a 60-year-old male with a past medical history significant for coron antelmo artery disease, status post PTCA, history of AICD, hypothyroidism, history of chronic kidney dise ase. Admitted with acute kidney injury. The patient has mild mental retardation, complaining of gricel rrhea. PHYSICAL EXAMINATION: VITAL SIGNS: Temperature afebrile, heart rate 85, blood pressure 127/67. HEENT: PERRLA. Extraocular muscles intact. NECK: Supple. No carotid bruits. No thyromegaly. CHEST: Clear to auscultation. HEART: S1, S2 regular. ABDOMEN: Soft. EXTREMITIES: Clubbing, cyanosis negative. BLOOD WORKUP: WBC 10.3, hemoglobin 15, hematocrit 44.2, platelet count 362. Chemistry shows sodium 142, potassium 4. , chloride 116, carbon dioxide 17, anion gap of 14, BUN 53, creatinine 2.9, mag nesium 1.3. IMPRESSION: Severe hypomagnesemia, cardiomyopathy, coronary artery disease, acute kidney injury on c hronic renal insufficiency, arrhythmia 10 beats secondary to hypomagnesemia as well as underlying car diomyopathy. The patient had echocardiography done yesterday that revealed 4 chamber dilation, eject ion fraction 25%-30%, mild mitral regurgitation, moderate tricuspid regurgitation, right ventricular systolic pressure 48, no , trace aortic regurgitation, trace pulmonary insufficiency, no thrombu s, mild mitral regurgitation, moderate tricuspid regurgitation, right ventricular systolic pressure 4 8. RECOMMENDATION: Continue IV hydration. Continue aggressive supplement electrolytes. Will give magn esium 2 grams and will give another 2 grams at 3 p.m. because of low magnesium. Thank you Dr. Meyer, for providing us the opportunity in taking care of the patient. Repeat labs in the morning. Ayad Pineda MD cc:Asa Meyer JD, MD [id number] TT: 08/15/2016 12:18:48 Confirmation # [id number] Dictation # [id number] en
--- NOTE | 2016-08-15 13:58 | PN ---
DATE: 08/15/2016 SUBJECTIVE: The patient is lying in bed, in no acute distress. He denies chest pain, shortness of b reath. There is no diarrhea, no abdominal pain, no dysuria. OBJECTIVE: VITAL SIGNS: Blood pressure 127/67, temperature 97.7, pulse 85, respiratory rate 20. LUNGS: Clear. HEART: Regular rate and rhythm. ABDOMEN: Soft, nontender, bowel sounds are normoactive. EXTREMITIES: Without cyanosis, clubbing, or edema. NEUROLOGIC: The patient is awake and oriented x 3 without focal sensory or motor deficits. SKIN: Warm and dry. LABORATORY DATA: WBCs 10.3, hemoglobin 15.0, hematocrit 44.2. Sodium 142, potassium 4.7, chloride 1 16, CO2 17, BUN 59, creatinine 2.9, glucose 87. IMPRESSION: 1. Acute renal failure superimposed on chronic kidney disease, secondary to dehydration from diureti cs, diarrhea and uncontrolled diabetes. 2. Coronary artery disease, status post stent placement x 2. 3. Congestive heart failure. 4. Type 2 diabetes mellitus. 5. Hypothyroidism. 6. Benign prostatic hypertrophy. 7. Developmental disability. PLAN: Continue IV fluids. Continue renal followup with Dr. Winston, cardiology followup with [facility]. Physical therapy evaluation and treatment. Social work for discharge planning. Asa Meyer JD, MD cc: [id number] TT: 08/15/2016 13:57:56 Confirmation # [id number] Dictation # [id number] en
[2016-08-15] MEDS ORDERED: Magnesium Sulfate 2 GM in Sodium Chloride 0.9% 100 ML IVPB ONE (15:00)
--- NOTE | 2016-08-16 03:14 | CP.PCM.PN ---
Subjective - Date & Time of Evaluation Date of Evaluation: 08/16/16 Time of Evaluation: 01:12 - Subjective Subjective: Patient was seen at bedside. He is asleep now. Earlier nurse had called and told that he was having nausea. Medical record was reviewed and Zofran 4 mg IV was ordered. He had no other complaints. 60 year old white male was admitted with low blood pressure for 2 days. PMH of CHF, CAD, HTN, hypothyroidism,hyperparathyroidism, CKD ,developmental delay,cardiac catheterization,ICD placement. Objective - Vital Signs/Intake and Output Vital Signs (last 24 hours): Temp Pulse Resp BP Pulse Ox 98.1 F 92 H 20 134/79 95 08/15/16 23:51 08/15/16 23:51 08/15/16 23:51 08/15/16 23:51 08/15/16 23:51 Intake and Output: 08/15/16 08/16/16 18:59 06:59 Intake Total 688 Output Total 1300 Balance -612 - Medications Medications: Current Medications Aspirin (Ecotrin) 81 mg PO DAILY [facility] Last Admin: 08/15/16 09:59 Dose: 81 mg Atorvastatin Calcium (Lipitor) 20 mg PO DAILY [facility] Last Admin: 08/15/16 09:59 Dose: 20 mg Carvedilol (Coreg) 3.125 mg PO BID [facility] Last Admin: 08/15/16 18:48 Dose: 3.125 mg Clopidogrel Bisulfate (Plavix) 75 mg PO DAILY [facility] Last Admin: 08/15/16 09:59 Dose: 75 mg Sodium Bicarbonate 50 meq/ (Sodium Chloride) 1,050 mls @ 80 mls/hr IV .Q13H8M [facility] Last Admin: 08/15/16 22:31 Dose: Not Given Insulin Human Regular (Humulin R Low) 0 units SC ACHS [facility] PRN Reason: Protocol Last Admin: 08/15/16 22:16 Dose: Not Given Levothyroxine Sodium (Synthroid) 125 mcg PO DAILY [facility] Last Admin: 08/15/16 09:59 Dose: 125 mcg Sodium Bicarbonate (Sodium Bicarbonate Tab) 650 mg PO TID [facility] Last Admin: 08/15/16 18:47 Dose: 650 mg - Labs Labs: 08/15/16 06:00 08/15/16 06:00 - Constitutional Appears: Well, No Acute Distress - Head Exam Head Exam: ATRAUMATIC, NORMAL INSPECTION, NORMOCEPHALIC - Eye Exam Eye Exam: Normal appearance - ENT Exam ENT Exam: Normal External Ear Exam - Neck Exam Neck Exam: Normal Inspection - Respiratory Exam Respiratory Exam: NORMAL BREATHING PATTERN - Cardiovascular Exam Cardiovascular Exam: absent: JVD - GI/Abdominal Exam GI & Abdominal Exam: absent: Distended - Rectal Exam Rectal Exam: Deferred - Back Exam Back Exam: NORMAL INSPECTION (Asleep) - Skin Skin Exam: Normal Color Assessment and Plan - Assessment and Plan (Free Text) Assessment: Nausea. CAD. Obesity. CHF. HTN. Hypothyroidism. Plan: Zofran 4 mg IV stat. Continue present management.
[2016-08-16 06:59] LABS: URINE COLLECTION TIME 24 HOURS
[2016-08-16 07:16] LABS: MEAN CELL VOLUME 88.5 fL (80.0-105.0); MEAN CORPUSCULAR HEMOGLOBIN 30.3 pg (25.0-35.0); MEAN CORPUSCULAR HGB CONC 34.3 g/dl (31.0-37.0); MEAN PLATELET VOLUME 10.2 fl (7.0-11.0); RED CELL DISTRIBUTION WIDTH 13.3 % (11.5-14.5); WHITE BLOOD COUNT 13.8 10^3/ul (4.5-11.0)
[2016-08-16 07:34] LABS: ALB/GLOB RATIO 0.9 (1.1-1.8); BILIRUBIN,TOTAL 0.8 mg/dL (0.2-1.3); CALCIUM 8.4 mg/dL (8.4-10.5); MAGNESIUM 2.1 mg/dL (1.7-2.2); PHOSPHOROUS 2.4 mg/dL (2.5-4.5); TOTAL PROTEIN 7.3 g/dL (5.8-8.3)
[2016-08-16] MEDS: Insulin Reg-LOW-Coverage SC SCH ×4 (08:11→22:11)
[2016-08-16] MEDS: Levothyroxine 125 MCG TAB PO SCH (09:52)
[2016-08-16] MEDS ORDERED: Ergocalciferol 50,000 Intl Units Cap PO SCH (11:45)
--- NOTE | 2016-08-16 13:18 | PN ---
DATE: 08/16/2016 SUBJECTIVE: The patient is once again seen on telemetry. He is sitting up in bed. IV fluids with s odium bicarb are infusing. The patient still continues to complain of diarrhea. Stool for C. diff h as been sent, results are pending. The patient's BUN is down to his baseline levels in the mid 40s. Creatinine is slightly higher than his baseline level in the 2.6-2.9 range. MEDICATIONS: List reviewed. The patient is currently on Coreg, Ecotrin, insulin, Lipitor, Plavix, I V fluid with sodium bicarbonate, oral sodium bicarbonate, and Levoxyl. OBJECTIVE: INTAKE AND OUTPUT: Intake 2368, output 2300. VITAL SIGNS: Blood pressure is 141/90, temperature 98.3, respiratory rate is 18 with a pulse of 94. HEENT: Normocephalic, atraumatic. Conjunctivae pink. Sclerae nonicteric. NECK: Supple, no neck vein distention. CHEST: Clear to auscultation and percussion. No rales, no rhonchi, no wheezing. CARDIOVASCULAR: Regular rate and rhythm with MR, no S3, no S4, no rub. ABDOMEN: Soft. Bowel sounds normal. No rebound, no guarding, no masses, no tenderness on palpation . EXTREMITIES: Show no cyanosis, clubbing or edema. Distal lower extremity pulses are intact at 1-2+. LABORATORY DATA AND IMAGING: CBC: White blood cell count today 13.8 with a hemoglobin of 16.1, a pl atelet count is 342,000. Chemistries today: Sodium 141, potassium 5.0, chloride 114 with a CO2 of 1 8. BUN is 44 with a creatinine of 2.6/2.9. Glucose is 121, calcium 8.4, phosphorus is 2.4. Magnesi um is 2.1. Albumin is 3.4. TSH level was normal at 0.26. Vitamin D level is borderline low at 27.3 . PTH level is pending. ASSESSMENT: 1. Acute renal failure superimposed on chronic kidney disease stage IV. The patient's baseline BUN is in the 35-40 range with a baseline creatinine in the mid 2 range. With IV fluid hydration, he is slowly approaching these levels. However, patient is having diarrhea and perhaps this is allowing hi s BUN and creatinine to trend slightly above his baseline levels. In light of his metabolic acidosis , patient was given both oral and IV sodium bicarbonate instead of all of his IV fluids with normal s edyta. 2. Diarrhea. The patient continues to have diarrhea. Stool for Clostridium difficile is pending. GI evaluation on a p.r.n. basis. 3. History of non-insulin dependent diabetes mellitus, now on insulin. The patient's glucose contro l is acceptable. 4. Hypomagnesemia. Magnesium level had corrected with a mag rider. No oral magnesium in light of t he fact that he has diarrhea. 5. History of arteriosclerotic heart disease, status post percutaneous transluminal coronary angiopl asty stent x 2, history of permanent pacemaker, history of automatic implantable cardioverter-defibri llator with mitral regurgitation. The patient is followed by cardiology. These situations all appea r to be stable. 6. History of hypertension. Blood pressure control is acceptable on Coreg therapy alone. 7. Hypothyroidism. The patient will continue thyroid replacement therapy. TSH level was acceptable . 8. History of hyperlipidemia, on statin therapy. 9. History of developmental disability. This appears to be stable. 10. Vitamin D deficiency. The patient will be started on ergocalciferol 50,000 units weekly. PTH l evel is still pending. PLAN: 1. Continue to monitor for diarrhea. Perhaps GI evaluation. Stool Clostridium difficile is pending . 2. Continue IV fluid hydration. Half normal saline with sodium bicarbonate. 3. Continue sliding scale insulin. 4. Continue to hold diuretic therapy. 5. Continue to monitor accurate I's and O's and daily weights. 6. Continue to monitor patient on telemetry. Rom Winston MD cc: [id number] TT: 08/16/2016 13:17:59 Confirmation # [id number] Dictation # [id number] en
--- NOTE | 2016-08-16 14:31 | PN ---
DATE: 08/16/2016 REASON FOR CONSULTATION AND FOLLOWUP: Coronary artery disease, history of AICD, cardiomyopathy, admi tted with hypotension, acute kidney injury, having diarrhea profuse. BRIEF CLINICAL HISTORY: A 60-year-old male with a past medical history significant for coronary jackson ry disease status post PTCA of LAD, history of AICD, hypothyroidism, history of chronic renal disease . Admitted with acute kidney injury, mild mental retardation, complaining of diarrhea. The patient is being followed at [facility] by Dr. Wright. PHYSICAL EXAMINATION: VITAL SIGNS: Temperature afebrile, heart rate 94, blood pressure 141/90. HEENT: PERRLA. Extraocular muscles intact. NECK: Supple. No carotid bruits. No thyromegaly. CHEST: Clear to auscultation. HEART: S1, S2 regular. ABDOMEN: Soft. EXTREMITIES: Clubbing, cyanosis negative. BLOOD WORKUP: WBC 13. , hemoglobin , hematocrit 47, platelet count 342. Chemistry shows so dium 141, potassium 5, chloride 114, carbon dioxide 18, anion gap of 14, BUN 44, creatinine 2.6. IMPRESSION: Acute kidney injury on chronic renal insufficiency, diabetes, hypertension, hyperlipidem ia, mild mental retardation, history of coronary artery disease, status post percutaneous translumina l coronary angioplasty of left anterior descending, history of automatic implantable cardioverter-def ibrillator, being followed at [facility] by Dr. Wright. Recent echocardiography done yesterday that showe d ejection fraction 25%-30%, mild mitral regurgitation, moderate tricuspid regurgitation, right ventr icular systolic pressure 48, no , trace pulmonary insufficiency, trace aortic regurgitation. RECOMMENDATION: Continue IV fluid for diarrhea. Monitor electrolytes as needed. Will send stool fo r culture and Clostridium difficile. Will follow with you. Interim, continue atorvastatin, continue IV magnesium requirement, continue Levoxyl, continue clopidogrel. Will follow with you. Thank you, Dr. Meyer, for providing us the opportunity in taking care of the patient. Will follow wi th you. Will monitor electrolytes in the morning. Ayad Pineda MD cc: [id number] TT: 08/16/2016 14:30:05 Confirmation # [id number] Dictation # [id number] en
--- NOTE | 2016-08-16 15:49 | PN ---
DATE: 08/16/2016 SUBJECTIVE: The patient is sitting up in bed in no acute distress. He denies chest pain, no shortne ss of breath. There is occasional diarrhea, which is nonbloody, no abdominal pain, no nausea, no vom iting. OBJECTIVE: VITAL SIGNS: Blood pressure 156/69, temperature 97.1, pulse 89, respiratory rate 19. LUNGS: Clear. HEART: Regular rate and rhythm. ABDOMEN: Soft, nontender, bowel sounds are normoactive. EXTREMITIES: Without cyanosis, clubbing, or edema. NEUROLOGIC: The patient is awake and oriented x 3 without focal sensory or motor deficits. SKIN: Warm and dry. LABORATORY DATA: WBC is 13.8, hemoglobin 16.1, hematocrit 47.0. Sodium 141, potassium 5.0, chloride 114, CO2 18, BUN 44, creatinine 2.6, glucose 121. IMPRESSION: 1. Acute renal failure superimposed on chronic kidney disease secondary to dehydration from diuretic s, diarrhea and uncontrolled diabetes. 2. Coronary artery disease status post stent placement x 2. 3. Congestive heart failure. 4. Type 2 diabetes mellitus. 5. Hypothyroidism. 6. Benign prostatic hypertrophy. 7. Developmental disability. PLAN: Continue IV hydration, check stool for C. difficile, GI workup if diarrhea persists, continue renal followup with Dr. Lua, cardiology followup with Dr. Pineda. Physical therapy evaluation and treatment. BUN and creatinine levels appear to be at baseline. Social work for discharge planning. Asa Meyer JD, MD cc: [id number] TT: 08/16/2016 15:48:50 Confirmation # [id number] Dictation # [id number] [email or web address]
--- NOTE | 2016-08-17 02:34 | CP.PCM.PN ---
Subjective - Date & Time of Evaluation Date of Evaluation: 08/17/16 Time of Evaluation: 02:32 - Subjective Subjective: Patient was seen at bedside for he complained of nausea. Has no other complaints. Denied chest pain, sob, sweating, palpitations, head ache , dizziness, paraesthesia, weakness, diarrhoea. 60 year old white male was admitted with low blood pressure for 2 days. Has PMH of CHF, CAD, HTN, cardiac catheterization,ICD placement, hypothyroidism, hyperparathyroidism, CKD ,developmental delay. Objective - Vital Signs/Intake and Output Vital Signs (last 24 hours): Temp Pulse Resp BP Pulse Ox 97.6 F 91 H 20 139/86 97 08/17/16 00:01 08/17/16 00:01 08/17/16 00:01 08/17/16 00:01 08/17/16 00:01 - Medications Medications: Current Medications Aspirin (Ecotrin) 81 mg PO DAILY [facility] Last Admin: 08/16/16 09:52 Dose: 81 mg Atorvastatin Calcium (Lipitor) 20 mg PO DAILY [facility] Last Admin: 08/16/16 09:52 Dose: 20 mg Carvedilol (Coreg) 3.125 mg PO BID [facility] Last Admin: 08/16/16 17:53 Dose: 3.125 mg Clopidogrel Bisulfate (Plavix) 75 mg PO DAILY [facility] Last Admin: 08/16/16 09:52 Dose: 75 mg Ergocalciferol (Drisdol 50,000 Intl Units Cap) 1 cap PO Q7D [facility] Last Admin: 08/16/16 12:26 Dose: 1 cap Sodium Bicarbonate 50 meq/ (Sodium Chloride) 1,050 mls @ 80 mls/hr IV .Q13H8M [facility] Last Admin: 08/17/16 01:22 Dose: 80 mls/hr Insulin Human Regular (Humulin R Low) 0 units SC ACHS [facility] PRN Reason: Protocol Last Admin: 08/16/16 22:11 Dose: Not Given Pantoprazole Sodium (Protonix Ec Tab) 40 mg PO ACB [facility] Sodium Bicarbonate (Sodium Bicarbonate Tab) 650 mg PO TID [facility] Last Admin: 08/16/16 17:53 Dose: 650 mg - Labs Labs: 08/16/16 05:30 08/16/16 06:00 - Constitutional Appears: Well, No Acute Distress - Head Exam Head Exam: ATRAUMATIC, NORMAL INSPECTION, NORMOCEPHALIC Additional comments: Obese person. - Eye Exam Eye Exam: Normal appearance - ENT Exam ENT Exam: Normal External Ear Exam - Neck Exam Neck Exam: Normal Inspection - Respiratory Exam Respiratory Exam: NORMAL BREATHING PATTERN - Cardiovascular Exam Cardiovascular Exam: absent: JVD - GI/Abdominal Exam GI & Abdominal Exam: Soft. absent: Tenderness, Mass, Rebound - Rectal Exam Rectal Exam: Deferred - Extremities Exam Extremities Exam: Normal Inspection - Back Exam Back Exam: NORMAL INSPECTION - Neurological Exam Neurological Exam: Alert, Oriented x3 - Psychiatric Exam Psychiatric exam: Normal Affect, Normal Mood - Skin Skin Exam: Normal Color Assessment and Plan - Assessment and Plan (Free Text) Assessment: Nausea. Obesity. HTN. Hypothyroidism. Gastritis? Plan: Zofran 4 mg IV x 1. Protonix 40 mg IV x 1. Protonix 40 mg PO daily. Continue present management.
[2016-08-17 07:04] LABS: HEMATOCRIT 40.4 % (42.0-52.0); MEAN CELL VOLUME 88.2 fL (80.0-105.0); MEAN CORPUSCULAR HEMOGLOBIN 29.5 pg (25.0-35.0); MEAN CORPUSCULAR HGB CONC 33.4 g/dl (31.0-37.0); MEAN PLATELET VOLUME 10.7 fl (7.0-11.0); RED CELL DISTRIBUTION WIDTH 13.3 % (11.5-14.5); WHITE BLOOD COUNT 14.1 10^3/ul (4.5-11.0)
[2016-08-17] MEDS ORDERED: Pantoprazole 40 mg EC Tab PO SCH (07:30)
[2016-08-17] MEDS: Insulin Reg-LOW-Coverage SC SCH ×4 (08:04→22:12)
[2016-08-17 08:36] LABS: BILIRUBIN,TOTAL 0.5 mg/dL (0.2-1.3); MAGNESIUM 1.4 mg/dL (1.7-2.2); PHOSPHOROUS 1.8 mg/dL (2.5-4.5); POTASSIUM 4.5 mmol/L (3.6-5.0); TOTAL PROTEIN 6.5 g/dL (5.8-8.3)
--- NOTE | 2016-08-17 10:06 | PN ---
DATE: 08/17/2016 SUBJECTIVE: The patient is lying in bed in no acute distress. He denies chest pain or shortness of breath. He complains of some nonbloody diarrhea with no abdominal pain, no nausea, no vomiting. OBJECTIVE: VITAL SIGNS: Blood pressure 137/92, pulse 87, temperature 98.4, respiratory rate 18. LUNGS: Clear. HEART: Regular rate and rhythm. ABDOMEN: Soft, nontender. Bowel sounds are normoactive. EXTREMITIES: Without cyanosis, clubbing, or edema. NEUROLOGIC: The patient is awake and oriented x 3 without focal sensory or motor deficits. SKIN: Warm and dry. LABORATORY DATA: WBC is 14.1, hemoglobin 13.5, hematocrit 40.4. Sodium 138, potassium 4.5, chloride 113, CO2 of 18, BUN 41, creatinine 2.4, glucose 111. Stool for C. difficile toxin and antigen is ne gative. Urine C and S is negative. IMPRESSION: 1. Acute renal failure superimposed on chronic kidney disease secondary to dehydration from diuretic s, diarrhea, and uncontrolled diabetes. 2. Diarrhea of uncertain etiology, rule out inflammatory bowel disease. 3. Coronary artery disease. 4. Congestive heart failure. 5. Type 2 diabetes mellitus. 6. Hypothyroidism. 7. Benign prostatic hypertrophy. 8. Developmental disability. PLAN: Continue renal followup - Dr. Winston, cardiology followup with Dr. Pineda. We will obtain GI c onsult from Dr. Levy for GI workup. Continue to monitor electrolytes. We will hold Lipitor and Protonix secondary to diarrhea and observe. Social work for discharge planning. Asa Meyer JD, MD cc: [id number] TT: 08/17/2016 10:05:17 Confirmation # [id number] Dictation # [id number] [email or web address]
[2016-08-17] MEDS ORDERED: Magnesium Sulfate 2 GM in Sodium Chloride 0.9% 100 ML IV ONE (10:57)
--- NOTE | 2016-08-17 11:22 | PN ---
DATE: 08/17/2016 SUBJECTIVE: The patient is currently seen in telemetry, sitting up in bed, eating breakfast. He sta beth his diarrhea is still present, but less frequent. He remains on IV fluid hydration. His BUN and creatinine have fallen back to baseline levels. He does remain acidotic perhaps in part secondary t o diarrhea and his underlying chronic kidney disease stage IV. MEDICATIONS: Medication list reviewed. The patient is currently on Coreg, vitamin D, Ecotrin, insul in, Plavix, sodium bicarbonate and IV fluids with sodium bicarbonate. OBJECTIVE: INTAKE AND OUTPUT: Intake 1200, output 300, plus diarrhea. VITAL SIGNS: Blood pressure 137/92, temperature 98.4, respiratory rate 18 with a pulse of 97. HEENT: Normocephalic, atraumatic. Conjunctivae are pink. Sclerae are nonicteric. NECK: Supple, no neck vein distention. CHEST: Clear to auscultation and percussion. No rales, no rhonchi, no wheezing. CARDIOVASCULAR: Regular rate and rhythm, MR, no S3, no S4, no rub. ABDOMEN: Soft. Bowel sounds normal. No rebound, no guarding, no masses, no tenderness on palpation . EXTREMITIES: No cyanosis, clubbing or edema. Distal lower extremity pulses are 1-2+ bilaterally. LABORATORY DATA AND IMAGING: CBC: White blood cell count today is 14.1, hemoglobin stable at 13.5, platelet count is 321,000. Chemistries: Sodium 138, potassium 4.5, chloride 113 with a CO2 of 18. BUN 41 with a creatinine of 2.4, back to baseline levels. Glucose 111. Calcium 8.0, phosphorus 1.8 with a magnesium of 1.4. Albumin is 3.2. Stool for Clostridium difficile was negative. ASSESSMENT: 1. Acute renal failure superimposed on chronic kidney disease stage IV. A 24-hour urine showed crea tinine clearance of 25 mL per minute with 874 of protein in the urine. The patient was felt to be vo lume depleted on admission. The patient continues to have diarrhea, though less profuse. Until his diarrhea resolves, no choice but to continue IV fluid hydration with sodium bicarbonate supplements. 2. Diarrhea. I suggest GI evaluation for definitive evaluation. Stool for C. diff was negative. 3. History of non-insulin dependent diabetes mellitus, now insulin. Glucose control is acceptable. 4. Hypomagnesemia, hypophosphatemia. The patient will receive appropriate supplements. No oral mag nesium in light of his diarrhea. 5. History of arteriosclerotic heart disease status post percutaneous transluminal coronary angiopla sty stent x 2, history of permanent pacemaker, history of automatic implantable cardioverter-defibril lator with mitral regurgitation. The patient followed by cardiology and felt to be stable. 6. History of hypertension. Blood pressure is controlled on Coreg therapy. 7. Hypothyroidism. The patient will continue thyroid replacement therapy. TSH level is acceptable. 8. History of hyperlipidemia, on statin therapy. 9. History of developmental disability, this appears to be stable. 10. History of vitamin D deficiency. The patient has been started on ergocalciferol 50,000 units we ekly. PLAN: 1. Continue to monitor for any increased severity of the diarrhea. I suggest GI evaluation. This w as discussed with his other physicians. Stool for C. diff was negative. 2. Continue IV fluid hydration with sodium bicarbonate supplements. 3. Continue sliding scale insulin. 4. Continue to hold diuretic therapy. 5. Continue accurate I's and O's and daily weights. As per Dr. Pineda, perhaps discontinue telemetry. Rom Winston MD cc: [phone] TT: 08/17/2016 11:21:40 Confirmation # [id number] Dictation # [id number] [email or web address]
[2016-08-17] MEDS: Potassium & Sodium Phosphate PO SCH ×2 (11:40→17:29)
--- NOTE | 2016-08-17 13:06 | PN ---
DATE: 08/17/2016 REASON FOR CONSULTATION AND FOLLOWUP: Coronary artery disease, history of AICD, cardiomyopathy, admi tted with hypertension, kidney injury, acute kidney injury, diarrhea. BRIEF CLINICAL HISTORY: This is a 60-year-old male with a past medical history significant for coron antelmo artery disease, status post PTCA of LAD, history of AICD, hypothyroidism, chronic renal insuffici ency. Admitted with acute kidney injury, mild mental retardation, having massive diarrhea. The karissa ent is being followed at [facility] by Dr. Wright. Denies any chest pain, shortness of breath, any palpit ation. Complaining of diarrhea, which is improving. PHYSICAL EXAMINATION: VITAL SIGNS: Temperature afebrile, heart rate , blood pressure 119/77. HEENT: PERRLA. Extraocular muscles intact. NECK: Supple. No carotid bruits. No thyromegaly. CHEST: Clear to auscultation. HEART: S1, S2 regular. ABDOMEN: Soft. EXTREMITIES: Clubbing, cyanosis negative. BLOOD WORKUP: WBC 14. , hemoglobin 13. , hematocrit 40.4, platelet count 321. Chemistry javi ws sodium 130, potassium 4.5, chloride 113, carbon dioxide 18, anion gap of 12, BUN 41, creatinine 2. 4. IMPRESSION: Acute kidney injury, chronic renal insufficiency, mild mental retardation, history of co ronary artery disease, status post percutaneous transluminal coronary angioplasty of left anterior de scending, history of cardiomyopathy, history of automatic implantable cardioverter-defibrillator, men jensen retardation, diarrhea. RECOMMENDATION: Continue gentle hydration. Continue Coreg, continue aspirin, continue Plavix. We w ill follow with you. Cardiovascular status is stable. Monitor electrolytes. Repeat the lab in the morning. Will supplement magnesium. Thank you, Dr. Meyer, for providing us the opportunity in taking care of the patient. The patient is having diarrhea, so we will supplement IV. Mag ox will cause more diarrhea. Ayad Pineda MD cc:Asa Meyer JD, MD [phone] TT: 08/17/2016 13:05:10 Confirmation # [id number] Dictation # [id number] [email or web address]
--- NOTE | 2016-08-17 13:31 | CP.PCM.CON ---
History of Present Illness - History of Present Illness History of Present Illness: Seen and examined at bedside this afternoon, chart reviewed. Request for consult: Diarrhea HPI: This is a 60 year old obese male with a history of CAD with PTCA and stent placement, Pacemaker, CHF came to the hospital with complaints of hypotension and was was found to be in acute renal failure. The patient complains of diarrhea that started on Tuesday and recently now is becoming less loose. No reports of bleeding. No N/V or abdominal pain. Patient denies contributing foods , recent antibiotics use, or new medications, no sick contacts. Only thing he recalls eating they day before was a seafood sandwhich. Normally has regular BM , no bleeding. He did have stool for CDiff done and that was negative. No weight loss, anorexia. He never had a colonoscopy before. PMH: CHF, CAD, w/PTCA, stent, CHF, hypothyroidsim, DM type II, BPH, Developmental Disability PSH: Pacemaker, Coronaty stent X2 , Allergies: NKDA Family HX: noncontributory Social HX: deies tobacco, ETOH, Drugs MEDs: reviewed as per JOSE L ROS: systems reviewed with positive findings, see HPI: Past Patient History - Infectious Disease Hx of Infectious Diseases: None - Tetanus Immunizations Tetanus Immunization: Unknown - Past Medical History & Family History Past Medical History?: Yes - Past Social History Smoking Status: Never Smoked - CARDIAC Hx Cardiac Disorders: Yes Hx Congestive Heart Failure: Yes - PULMONARY Hx Chronic Obstructive Pulmonary Disease (COPD): Yes - NEUROLOGICAL Hx Neurological Disorder: Yes (MENTALLY CHALLENGED) - HEENT Hx HEENT Problems: No - RENAL Hx Renal Failure: Yes - ENDOCRINE/METABOLIC Hx Diabetes Mellitus Type 1: Yes - INTEGUMENTARY Hx Dermatological Problems: Yes Other/Comment: 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 - SURGICAL HISTORY Hx Surgeries: Yes Hx Cardiac Catheterization: Yes Hx Coronary Stent: Yes Other/Comment: cardiac cath, pacemaker with internal defribilator - ANESTHESIA Hx Anesthesia: Yes Hx Anesthesia Reactions: No Hx Malignant Hyperthermia: No Meds Allergies/Adverse Reactions: Allergies Allergy/AdvReac Type Severity Reaction Status Date / Time No Known Allergies Allergy Verified 08/13/16 15:21 - Medications Medications: Current Medications Aspirin (Ecotrin) 81 mg PO DAILY [facility] Last Admin: 08/17/16 09:16 Dose: 81 mg Carvedilol (Coreg) 3.125 mg PO BID [facility] Last Admin: 08/17/16 09:17 Dose: 3.125 mg Clopidogrel Bisulfate (Plavix) 75 mg PO DAILY [facility] Last Admin: 08/17/16 09:20 Dose: 75 mg Ergocalciferol (Drisdol 50,000 Intl Units Cap) 1 cap PO Q7D [facility] Last Admin: 08/16/16 12:26 Dose: 1 cap Sodium Bicarbonate 50 meq/ (Sodium Chloride) 1,050 mls @ 80 mls/hr IV .Q13H8M [facility] Last Admin: 08/17/16 01:22 Dose: 80 mls/hr Insulin Human Regular (Humulin R Low) 0 units SC ACHS [facility] PRN Reason: Protocol Last Admin: 08/17/16 13:02 Dose: 2 units Potassium Phos/Sodium Phos (Neutra-Phos) 1 pkt PO BID [facility] Last Admin: 08/17/16 11:40 Dose: 1 pkt Sodium Bicarbonate (Sodium Bicarbonate Tab) 650 mg PO TID [facility] Last Admin: 08/17/16 09:17 Dose: 650 mg Physical Exam - Constitutional Appears: No Acute Distress - Head Exam Head Exam: NORMAL INSPECTION - Eye Exam Eye Exam: Normal appearance, PERRL. absent: Scleral icterus - ENT Exam ENT Exam: Mucous Membranes Moist - Neck Exam Neck exam: Positive for: Normal Inspection - Respiratory Exam Respiratory Exam: Clear to Auscultation Bilateral, NORMAL BREATHING PATTERN. absent: Rales, Rhonchi, Wheezes, Respiratory Distress - Cardiovascular Exam Cardiovascular Exam: +S1, +S2 - GI/Abdominal Exam GI & Abdominal Exam: Hernia (umbilical, nontender), Normal Bowel Sounds, Soft. absent: Distended, Guarding, Organomegaly, Tenderness - Extremities Exam Extremities exam: Positive for: normal inspection, pedal pulses present (skin scar, pateint says that he had hx patterson?). Negative for: calf tenderness, pedal edema - Neurological Exam Neurological exam: Alert, Oriented x3 - Skin Skin Exam: Dry, Warm Results - Vital Signs Recent Vital Signs: Last Vital Signs Temp 97.8 F 08/17/16 12:00 Pulse 86 08/17/16 12:00 Resp 20 08/17/16 12:00 BP 125/59 L 08/17/16 12:00 Pulse Ox 97 08/17/16 00:01 - Labs Result Diagrams: 08/17/16 06:40 08/17/16 08:21 Labs: Laboratory Results - last 24 hr 08/17/16 08/17/16 06:40 08:21 WBC 14.1 H RBC 4.58 Hgb 13.5 L Hct 40.4 L MCV 88.2 MCH 29.5 MCHC 33.4 RDW 13.3 Plt Count 321 MPV 10.7 Sodium 138 Potassium 4.5 Chloride 113 H Carbon Dioxide 18 L Anion Gap 12 BUN 41 H Creatinine 2.4 H Est GFR ( Amer) 34 Est GFR (Non-Af Amer) 28 Random Glucose 111 H Calcium 8.0 L Phosphorus 1.8 L Magnesium 1.4 L Total Bilirubin 0.5 AST 14 L ALT 23 Alkaline Phosphatase 70 Total Protein 6.5 Albumin 3.2 Globulin 3.3 Albumin/Globulin Ratio 1.0 L Assessment & Plan - Assessment and Plan (Free Text) Assessment: ASSESSMENT: Acute Renal Failure secondary to dehydration Diarrhea, unknown etiology, ?gastroenteritis CAD, s/p stent x2 CHF Umbilical Hernia Developmental Disablilty PLAN: celiac disease diet as tolerated on Plavix Thank you for this consult and for allowing us to participate in your patient care, will make further recommendation based upon clinical course. Seen and discussed with Dr. Levy.
[2016-08-18 06:42] LABS: HEMATOCRIT 44.1 % (42.0-52.0); MEAN CELL VOLUME 87.7 fL (80.0-105.0); MEAN CORPUSCULAR HGB CONC 34.2 g/dl (31.0-37.0); MEAN PLATELET VOLUME 10.6 fl (7.0-11.0); RED CELL DISTRIBUTION WIDTH 13.4 % (11.5-14.5); WHITE BLOOD COUNT 11.5 10^3/ul (4.5-11.0)
[2016-08-18 07:01] LABS: ALB/GLOB RATIO 0.9 (1.1-1.8); BILIRUBIN,TOTAL 0.5 mg/dL (0.2-1.3); CALCIUM 8.1 mg/dL (8.4-10.5); MAGNESIUM 1.5 mg/dL (1.7-2.2); PHOSPHOROUS 2.1 mg/dL (2.5-4.5); TOTAL PROTEIN 6.5 g/dL (5.8-8.3)
--- NOTE | 2016-08-18 07:39 | CON ---
DATE: 08/17/2016 This is an addendum to the consultation report dictated by Paula Edmonds APN. This 60-year-old patient admitted with acute onset of profuse diarrhea. The patient has a history of cardiac ischemic and nonischemic cardiomyopathy, status post PCI, status post AICD placement. The patient denies any bleeding per rectum. The likely cause to be considered for the acute diarrhea should be acute gastroenteritis. The patient afebrile. PHYSICAL EXAMINATION: Abdomen is soft; there was no tenderness. The patient did have mild leukocytosis. He says the diarrhea has been improving. LABORATORY DATA: The patient had a stool for C. diff sent which was negative. There is no urine culture sent. RECOMMENDATIONS: 1. Would recommend followup of this urine culture. 2. Will continue IV hydration. 3. Stool culture . The likely cause to be considered is acute gastroenteritis and acute kidney injury on the top of chronic kidney disease. Other comorbidities include cardiomyopathy, coronary artery disease status post PCI, status post AICD placement. 4. Will continue to closely follow up his care and suggest further management based on the clinical course. Temo Levy MD cc: [phone] TT: 08/18/2016 07:38:25 Confirmation # [id number] Dictation # [id number] [email or web address] [email or web address]
[2016-08-18] MEDS: Insulin Reg-LOW-Coverage SC SCH ×4 (07:50→21:50)
[2016-08-18] MEDS: Lactobacillus Acidophilus 500 MU Cap PO SCH ×2 (10:58→17:28)
[2016-08-18] MEDS: Potassium & Sodium Phosphate PO SCH ×2 (10:58→17:27)
--- NOTE | 2016-08-18 13:11 | CP.PCM.PN ---
<Amada Harman - Last Filed: 08/18/16 13:08> Subjective - Date & Time of Evaluation Date of Evaluation: 08/18/16 Time of Evaluation: 13:08 - Subjective Subjective: GI for Dr. Levy Pt s&e. Pt continue to have multiple diarrhea overnight. Denies F/C/n/V/D/CP/ SOB. TOlerating PO. OOB. +void. Objective - Vital Signs/Intake and Output Vital Signs (last 24 hours): Temp Pulse Resp BP Pulse Ox 98.2 F 94 H 20 108/80 94 L 08/18/16 06:00 08/18/16 10:58 08/18/16 06:00 08/18/16 10:58 08/18/16 06:00 Intake and Output: 08/18/16 08/18/16 06:59 18:59 Intake Total 1820 Output Total 650 Balance 1170 - Medications Medications: Current Medications Aspirin (Ecotrin) 81 mg PO DAILY [facility] Last Admin: 08/18/16 10:58 Dose: 81 mg Carvedilol (Coreg) 3.125 mg PO BID [facility] Last Admin: 08/18/16 10:58 Dose: 3.125 mg Clopidogrel Bisulfate (Plavix) 75 mg PO DAILY [facility] Last Admin: 08/18/16 10:58 Dose: 75 mg Ergocalciferol (Drisdol 50,000 Intl Units Cap) 1 cap PO Q7D [facility] Last Admin: 08/16/16 12:26 Dose: 1 cap Sodium Bicarbonate 50 meq/ (Sodium Chloride) 1,050 mls @ 80 mls/hr IV .Q13H8M [facility] Last Admin: 08/17/16 19:59 Dose: 80 mls/hr Insulin Human Regular (Humulin R Low) 0 units SC ACHS [facility] PRN Reason: Protocol Last Admin: 08/18/16 07:50 Dose: 1 units Lactobacillus Acidophilus (Bacid Acidophilus) 1 cap PO BID [facility] Last Admin: 08/18/16 10:58 Dose: 1 cap Loperamide HCl (Imodium) 2 mg PO BID PRN PRN Reason: Diarrhea Potassium Phos/Sodium Phos (Neutra-Phos) 1 pkt PO BID [facility] Last Admin: 08/18/16 10:58 Dose: 1 pkt Sodium Bicarbonate (Sodium Bicarbonate Tab) 650 mg PO TID [facility] Last Admin: 08/18/16 10:58 Dose: 650 mg - Labs Labs: 08/18/16 05:50 08/18/16 05:50 - Constitutional Appears: No Acute Distress - Head Exam Head Exam: ATRAUMATIC, NORMAL INSPECTION, NORMOCEPHALIC - Eye Exam Eye Exam: EOMI, Normal appearance, PERRL Pupil Exam: NORMAL ACCOMODATION, PERRL - ENT Exam ENT Exam: Mucous Membranes Moist, Normal Exam - Neck Exam Neck Exam: Full ROM, Normal Inspection. absent: Lymphadenopathy - Respiratory Exam Respiratory Exam: Clear to Ausculation Bilateral, NORMAL BREATHING PATTERN - Cardiovascular Exam Cardiovascular Exam: REGULAR RHYTHM, +S1, +S2. absent: Murmur - GI/Abdominal Exam GI & Abdominal Exam: Soft, Normal Bowel Sounds. absent: Distended, Firm, Guarding, Rigid, Tenderness - Extremities Exam Extremities Exam: Full ROM, Normal Capillary Refill, Normal Inspection. absent : Joint Swelling, Pedal Edema - Back Exam Back Exam: NORMAL INSPECTION - Neurological Exam Neurological Exam: Alert, Awake, CN II-XII Intact, Normal Gait, Oriented x3 - Psychiatric Exam Psychiatric exam: Normal Affect, Normal Mood - Skin Skin Exam: Dry, Intact, Normal Color, Warm Assessment and Plan - Assessment and Plan (Free Text) Assessment: Acute Renal Failure secondary to dehydration Diarrhea, unknown etiology, likely gastroenteritis CAD, s/p stent x2 CHF Umbilical Hernia: reducible Developmental Disablilty PLAN: celiac disease diet as tolerated on Plavix Imodium PRN for diarrhea Will DW Dr. Levy <Temo Levy V - Last Filed: 08/18/16 22:22> Objective - Vital Signs/Intake and Output Vital Signs (last 24 hours): Temp Pulse Resp BP Pulse Ox 97.4 F L 94 H 20 128/92 H 94 L 08/18/16 17:59 08/18/16 17:59 08/18/16 17:59 08/18/16 17:59 08/18/16 06:00 - Medications Medications: Current Medications Aspirin (Ecotrin) 81 mg PO DAILY [facility] Last Admin: 08/18/16 10:58 Dose: 81 mg Carvedilol (Coreg) 3.125 mg PO BID [facility] Last Admin: 08/18/16 17:27 Dose: 3.125 mg Clopidogrel Bisulfate (Plavix) 75 mg PO DAILY [facility] Last Admin: 08/18/16 10:58 Dose: 75 mg Ergocalciferol (Drisdol 50,000 Intl Units Cap) 1 cap PO Q7D [facility] Last Admin: 08/16/16 12:26 Dose: 1 cap Sodium Chloride (Sodium Chloride 0.45%) 1,000 mls @ 40 mls/hr IV .Q24H [facility] Last Admin: 08/18/16 17:30 Dose: 40 mls/hr Insulin Human Regular (Humulin R Low) 0 units SC ACHS [facility] PRN Reason: Protocol Last Admin: 08/18/16 21:50 Dose: Not Given Lactobacillus Acidophilus (Bacid Acidophilus) 1 cap PO BID [facility] Last Admin: 08/18/16 17:28 Dose: 1 cap Loperamide HCl (Imodium) 2 mg PO BID PRN PRN Reason: Diarrhea Last Admin: 08/18/16 13:23 Dose: 2 mg Potassium Phos/Sodium Phos (Neutra-Phos) 1 pkt PO BID [facility] Last Admin: 08/18/16 17:27 Dose: 1 pkt Sodium Bicarbonate (Sodium Bicarbonate Tab) 650 mg PO TID [facility] Last Admin: 08/18/16 17:27 Dose: 650 mg - Labs Labs: 08/18/16 05:50 08/18/16 05:50 Attending/Attestation - Attestation I have personally seen and examined this patient.: Yes I have fully participated in the care of the patient.: Yes I have reviewed all pertinent clinical information, including history, physical exam and plan: Yes Notes (Text): 08/18/16 22:19 Dr. Levy Seen and evaluated earlier Sill has loose BM. But less frequent Abd- no tenderness Rec low dose imodium to slow down diarrhea. IV hydration not on antibiotics 08/18/16 22:22
[2016-08-18] MEDS ORDERED: Magnesium Sulfate 2 GM in Sodium Chloride 0.9% 100 ML IVPB ONE ×2 (16:23→19:30)
[2016-08-18] MEDS ORDERED: Sodium Chloride 0.45% 1,000 ML IV SCH (16:38)
--- NOTE | 2016-08-18 17:15 | PN ---
DATE: 08/18/2016 SUBJECTIVE: The patient is lying in bed in no acute distress. He denies chest pain or shortness of breath. He complains of nonbloody diarrhea with no abdominal pain, no nausea or vomiting. OBJECTIVE: VITAL SIGNS: Blood pressure 114/79, temperature 98, pulse 95, respiratory rate 18. LUNGS: Clear. HEART: Regular rate and rhythm. ABDOMEN: Soft, nontender, bowel sounds are normoactive. EXTREMITIES: Without cyanosis or clubbing. There is trace bipedal edema. NEUROLOGIC: The patient is awake and oriented without focal, sensory or motor deficits. SKIN: Warm and dry. LABORATORY DATA: WBC is 11.5, hemoglobin 15.1, hematocrit 44.1. Sodium 139, potassium 4.0, chloride 111, CO2 20, BUN 35, creatinine 2.3, glucose 121. IMPRESSION: 1. Acute renal failure superimposed on chronic kidney disease secondary to dehydration from diuretic s, diarrhea and uncontrolled diabetes mellitus, which is improved. The patient's renal function appe ars to be back at baseline. 2. Diarrhea of uncertain etiology, rule out inflammatory bowel disease. 3. Coronary artery disease. 4. Congestive heart failure. 5. Type 2 diabetes mellitus. 6. Hypothyroidism. 7. Benign prostatic hypertrophy. 8. Developmental disability. PLAN: We will obtain stool for C and S. Continue GI followup with Dr. Levy. Continue GI workup. Continue renal followup with Dr. Lua. Continue to monitor electrolytes and renal function. S ocial work for discharge planning. Asa Meyer JD, MD cc: [id number] TT: 08/18/2016 17:14:37 Confirmation # [id number] Dictation # [id number] mn
--- NOTE | 2016-08-18 17:15 | PN ---
DATE: 08/18/2016 SUBJECTIVE: The patient is seen sitting in chair. He is complaining of severe diarrhea. He reports he has had 4 bowel movements today. He denies any abdominal pain. He denies any nausea, vomiting. He denies any fever, chills. PHYSICAL EXAMINATION: GENERAL: Obese, elderly male, sitting in chair. VITAL SIGNS: Blood pressure 114/79, heart rate 95, respiratory rate 18, temperature 98. HEENT: Normocephalic, atraumatic. NECK: Supple, no JVD. LUNGS: Bilateral equal air entry, no rales. CARDIAC: S1, S2, regular rate and rhythm, no murmur, no rub. ABDOMEN: Obese, distended, soft, nontender, bowel sounds present. EXTREMITIES: No lower extremity edema. INTAKE AND OUTPUT: 2360/1600. LABORATORY DATA: WBC 11.5, hemoglobin 15, hematocrit 44, platelets 310. Sodium 139, potassium 4.0, chloride 111, CO2 20, BUN 35, creatinine 2.3, glucose 121, calcium 8.1, phosphorus 2.1, magnesium 1. 5, albumin 3.1, corrected calcium is 8.8. C. diff negative. Urine culture no growth. CURRENT MEDICATIONS: Coreg 3.125 b.i.d., Drisdol, Ecotrin, insulin, Imodium, mag sulfate 2 grams, Ne utra-Phos 1 packet b.i.d., Plavix, normal saline with 50 mEq of sodium bicarbonate at 80, sodium bica rbonate 650 t.i.d. ASSESSMENT: 1. Acute kidney injury superimposed on chronic kidney disease stage IV, resolving acute kidney injur y, creatinine almost down to baseline. 2. Persistent diarrhea. 3. Etz-wnyxjnw-owbgmipgo diabetes mellitus. 4. Hypomagnesemia, hypophosphatemia. 5. Atherosclerotic heart disease. 6. Hypertension. 7. Hypothyroidism. PLAN: 1. Change IV fluids to 40 mL per hour. 2. Continue IV magnesium supplementation, avoid p.o. because of increased diarrhea with p.o. magnesi um. 3. Replace phosphorus orally. 4. Continue to monitor insulin requirements. 5. Hold diuretic therapy. Kaity Helms MD cc: [id number] TT: 08/18/2016 17:15:18 Confirmation # [id number] Dictation # [id number] en
--- NOTE | 2016-08-18 17:54 | PN ---
DATE: 08/18/2016 REASON FOR CONSULTATION: Coronary artery disease, history of AICD, cardiomyopathy, ____ hypertension , kidney injury, acute kidney injury on chronic renal insufficiency, diarrhea, hypomagnesemia, VT. BRIEF CLINICAL HISTORY: This is a 60-year-old male with a past medical history significant for coron antelmo artery disease status post PTCA of LAD, history of AICD, hypothyroidism, chronic renal insufficie ncy, admitted with acute kidney injury, mild mental retardation, having massive diarrhea. The patien t is being followed by [facility] by Dr. Wright. Denies any chest pain, shortness of breath, but having d iarrhea this morning again. Magnesium 1.5. Having VT, 10 beats of VT, asymptomatic. PHYSICAL EXAMINATION: As follows: VITAL SIGNS: Temperature afebrile, heart rate 95, blood pressure 114/79. HEENT: PERRLA. Extraocular muscles intact. NECK: Supple. No carotid bruits. No thyromegaly. CHEST: Clear to auscultation. HEART: S1, S2 regular. ABDOMEN: Soft. EXTREMITIES: Clubbing and cyanosis negative. BLOOD WORKUP: As follows: WBC 11.5, hemoglobin 15.1, hematocrit 44.1, platelet count 310. Chemistr y shows sodium ____, potassium 4, chloride 101, carbon dioxide 20, anion gap of 12, BUN ____, creatin ine 2.3, magnesium 1.5. IMPRESSION: Hypomagnesemia, ventricular tachycardia secondary to underlying cardiomyopathy as well a s hypomagnesemia, status post automatic implanted cardiac defibrillator, status post percutaneous tra nsluminal coronary angioplasty of left anterior descending 2-3 years ago at [facility]. Being followed by Dr. Wright. Chronic kidney disease, acute kidney injur y, chronic renal insufficiency, cardiomyopathy, mild mental retardation. RECOMMENDATION: Continue supplement potassium. Keep potassium around 2. We will give another dose of magnesium at 7:00 p.m. to supplement magnesium. We will repeat the blood workup in the morning. We will repeat the lab in the morning. yAad Pindea MD cc: [id number] TT: 08/18/2016 17:53:26 Confirmation # [id number] Dictation # [id number] sn
[2016-08-18 17:59] VITALS: RESP 20
[2016-08-19 07:12] LABS: BILIRUBIN,TOTAL 0.6 mg/dL (0.2-1.3); CALCIUM 8.4 mg/dL (8.4-10.5); MAGNESIUM 2.5 mg/dL (1.7-2.2); PHOSPHOROUS 2.2 mg/dL (2.5-4.5); POTASSIUM 4.6 mmol/L (3.6-5.0); TOTAL PROTEIN 7.2 g/dL (5.8-8.3)
[2016-08-19] MEDS: Insulin Reg-LOW-Coverage SC SCH ×4 (08:21→21:51)
[2016-08-19 08:53] LABS: HEMATOCRIT 49.8 % (42.0-52.0); MEAN CELL VOLUME 87.2 fL (80.0-105.0); MEAN CORPUSCULAR HEMOGLOBIN 29.9 pg (25.0-35.0); MEAN CORPUSCULAR HGB CONC 34.3 g/dl (31.0-37.0); MEAN PLATELET VOLUME 11.1 fl (7.0-11.0); RED CELL DISTRIBUTION WIDTH 13.7 % (11.5-14.5)
[2016-08-19] MEDS: Lactobacillus Acidophilus 500 MU Cap PO SCH ×2 (09:41→18:02)
[2016-08-19] MEDS: Potassium & Sodium Phosphate PO SCH ×3 (09:42→18:02)
--- NOTE | 2016-08-19 11:46 | PN ---
DATE: 08/19/2016 Seen and examined at the bedside earlier today. The patient did get a dose of Imodium yesterday. He is not having any diarrhea now, no complaints. Tolerating oral intake. No reports of overt GI blee d. VITAL SIGNS: Temperature 97.9, blood pressure 134/88, pulse 91, respirations 20, 97 on room air. LABORATORY DATA: Today, WBC 13.0, H and H is 17.1 and 49.8, platelets of 338. His sodium is 139, K 4.6, BUN 42, creatinine is 2.6, mag 2.5. LFTs are within normal limits. PHYSICAL EXAMINATION: HEENT: Sclerae are anicteric. NECK: Supple. CARDIAC: S1, S2. LUNGS: Clear. ABDOMEN: With bowel sounds, soft. It is not tender. No rebound or guarding. EXTREMITIES: No edema. NEUROLOGIC: Awake, alert, oriented. ASSESSMENT: The patient with diarrhea, likely gastroenteritis. It is getting better. He did have a dose of Imodium yesterday. The patient with acute renal failure likely secondary to dehydration, hi story of coronary artery disease, status post stent x 2. Umbilical hernia that is reducible, history of developmental delay, congestive heart failure. PLAN: We will discontinue the Imodium. Continue diet as tolerated. The patient is on Plavix and as pirin. Continue the lactobacillus. The patient would benefit from outpatient EGD, colonoscopy. See n and discuss with Dr. Levy. Paula GUAJARDO cc: [id number] TT: 08/19/2016 11:45:27 Confirmation # [id number] Dictation # [id number] tn
--- NOTE | 2016-08-19 13:27 | PN ---
DATE: 08/19/2016 SUBJECTIVE: The patient is lying in bed, in no acute distress. He denies chest pain or shortness of breath. His diarrhea has diminished from yesterday after receiving a dose of Imodium. He denies ab dominal pain, nausea or vomiting. OBJECTIVE: VITAL SIGNS: Blood pressure 134/88, pulse 95, temperature 97.9, respiratory rate 20. LUNGS: Clear. HEART: Regular rate and rhythm. ABDOMEN: Soft, nontender, bowel sounds are normoactive. EXTREMITIES: Without cyanosis, clubbing. There is trace bipedal edema. NEUROLOGIC: The patient is awake and oriented without focal, sensory or motor deficits. SKIN: Warm and dry. LABORATORY DATA: WBCs 13.0, hemoglobin 17.1, hematocrit 49.8. Sodium 139, potassium 4.6, chloride 1 10, CO2 21, BUN 43, creatinine 2.6, glucose 128. IMPRESSION: 1. Diarrhea, possibly secondary to acute gastroenteritis. 2. Status post acute renal failure superimposed on chronic kidney disease from dehydration due to di uretics, diarrhea and uncontrolled diabetes mellitus. Renal function appears to be at baseline. 3. Coronary artery disease. 4. Congestive heart failure. 5. Type 2 diabetes mellitus. 6. Hypothyroidism. 7. Benign prostatic hypertrophy. 8. Developmental disability. PLAN: Await stool C and S. Continue GI followup with Dr. Levy, celiac workup in progress. We w ill start empiric Cipro 250 mg twice daily as treatment for infectious diarrhea. Continue renal foll owup with Dr. Winston/Dr. Helms. Monitor electrolytes and renal function. Social work for discharge planning. Asa Meyer JD, MD cc: [id number] TT: 08/19/2016 13:26:27 Confirmation # [id number] Dictation # [id number] en
--- NOTE | 2016-08-19 14:27 | PN ---
DATE: 08/19/2016 REASON FOR CONSULTATION AND FOLLOWUP: Coronary artery disease, history of AICD, cardiomyopathy, hype rtension, kidney injury, acute on chronic diarrhea, hypomagnesemia, VT more than 24 hours ago. BRIEF CLINICAL HISTORY: A 60-year-old male with past medical history significant for coronary artery disease, status post PTCA of LAD, history of AICD, hypothyroidism, chronic renal insufficiency, admi tted with acute kidney injury, mild mental retardation, history of massive diarrhea, now diarrhea is getting better, multiple electrolyte abnormalities including hypomagnesemia, hypokalemia, hypophospha temia. The patient is being followed by Dr. Valdes at [facility]. History of PTCA of LAD, history of AIC D. Diarrhea claims is improving. PHYSICAL EXAMINATION: VITAL SIGNS: Temperature afebrile, heart rate 91, blood pressure 118/83. HEENT: PERRLA. Extraocular muscles intact. NECK: Supple. No carotid bruits. No thyromegaly. CHEST: Clear to auscultation. HEART: S1, S2 regular. ABDOMEN: Soft. EXTREMITIES: Clubbing and cyanosis negative. LABORATORY DATA: Blood workup as follows: WBC 13, hemoglobin , hematocrit 49.8, platelet count 338. Chemistry shows sodium 113, potassium 4.6, chloride 110, carbon dioxide 21, anion gap of 13, B UN 43, creatinine 2.6, calcium 8.4, phosphorus 2.2, magnesium 2.5. IMPRESSION: Hypomagnesemia, hypophosphatemia, hypokalemia improved, renal insufficiency, acute on ch ronic secondary to history of chronic kidney disease. The patient admitted with a creatinine of 5.8, now creatinine came back to 2.6, possibly is the baseline. On 01/03/2016, patient had a creatinine of 2.5, so this is baseline. Mild coronary artery disease, history of percutaneous translumina l coronary angioplasty of left anterior descending and automatic implantable cardioverter-defibrillat or, being followed at [facility]. Hypomagnesia improved. Ventricular tachycardia probably secondary to e lectrolyte imbalance the last 24 hours, history of automatic implantable cardioverter-defibrillator, history of percutaneous transluminal coronary angioplasty of left anterior descending 2-3 years ago. RECOMMENDATION: Supplement phosphate. Magnesium is okay. We will discontinue telemetry. Repeat e lab in the morning. Discontinue IV fluid to prevent going into congestive heart failure. Continue Plavix. Continue Coreg. We will discontinue telemetry. We will follow with you. Thank you, Dr. Meyer, for providing the opportunity in taking care of this patient. Will repeat phos phorus level in the morning and phosphate is being supplemented by Dr. Helms. Will follow with you. Ayad Pineda MD cc: [id number] TT: 08/19/2016 14:27:09 Confirmation # [id number] Dictation # [id number] rn
[2016-08-20] MEDS: Insulin Reg-LOW-Coverage SC SCH ×2 (08:00→12:27)
[2016-08-20 08:16] LABS: HEMATOCRIT 42.9 % (42.0-52.0); MEAN CELL VOLUME 87.6 fL (80.0-105.0); MEAN CORPUSCULAR HEMOGLOBIN 30.4 pg (25.0-35.0); MEAN CORPUSCULAR HGB CONC 34.7 g/dl (31.0-37.0); MEAN PLATELET VOLUME 11.2 fl (7.0-11.0); RED CELL DISTRIBUTION WIDTH 13.8 % (11.5-14.5); WHITE BLOOD COUNT 13.7 10^3/ul (4.5-11.0)
[2016-08-20 08:29] LABS: ALB/GLOB RATIO 0.9 (1.1-1.8); BILIRUBIN,TOTAL 0.4 mg/dL (0.2-1.3); CALCIUM 8.5 mg/dL (8.4-10.5); MAGNESIUM 1.9 mg/dL (1.7-2.2); PHOSPHOROUS 2.9 mg/dL (2.5-4.5); POTASSIUM 4.7 mmol/L (3.6-5.0); TOTAL PROTEIN 6.4 g/dL (5.8-8.3)
--- NOTE | 2016-08-20 08:29 | PN ---
DATE: 08/19/2016 SUBJECTIVE: The patient is seen sitting in chair. He is awake, he is alert. He reports diarrhea hall s stopped. He denies any nausea, vomiting. He denies any abdominal pain. PHYSICAL EXAMINATION: GENERAL: Obese, elderly male, sitting in chair. VITAL SIGNS: Blood pressure 134/88, heart rate 95, respiratory rate 20, temperature 97.9. HEENT: Normocephalic, atraumatic. NECK: Supple, no JVD. LUNGS: Bilateral equal air entry, no rales. CARDIAC: S1, S2, regular rate and rhythm, no murmur, no rub. ABDOMEN: Obese, distended, soft, nontender, bowel sounds present. EXTREMITIES: 1+ pitting edema of the lower extremities, chronic stasis changes. INTAKE AND OUTPUT: 240/not charted. LABORATORY DATA: WBC 13, hemoglobin 17, hematocrit 50, platelets 338. Sodium 139, potassium 4.6, ch loride 110, CO2 21, BUN 43, creatinine 2.6, glucose 128, calcium 8.4, phosphorus 2.2, magnesium 2.5, albumin 3.5, corrected calcium is 8.7. CURRENT MEDICATIONS: Coreg 3.125 b.i.d., Drisdol, Ecotrin, Humulin, Neutra-Phos 1 packet b.i.d., Kanika vix, sodium bicarbonate 650 t.i.d., half normal saline at 40, Imodium. ASSESSMENT: 1. Resolving acute kidney injury, superimposed on chronic kidney disease stage IV. 2. Prerenal azotemia, secondary to diarrhea. 3. Hypophosphatemia. 4. Hypomagnesemia, resolved. 5. Non-insulin dependent diabetes mellitus. 6. Hypertension. 7. Hypothyroidism. 8. Atherosclerotic heart disease. PLAN: 1. Discontinue IV fluids. 2. Increase phosphorus supplementation to 3 times a day. 3. Push p.o. intake. Kaity Helms MD cc: [id number] TT: 08/19/2016 13:20:43 Confirmation # [id number] Dictation # [id number] en 08/20/2016 07:27:52
[2016-08-20 08:46] VITALS: BP 131/83; PULSE 78; TEMP 97.7; O2SAT 98
[2016-08-20] MEDS: Lactobacillus Acidophilus 500 MU Cap PO SCH (09:50)
[2016-08-20] MEDS: Potassium & Sodium Phosphate PO SCH ×2 (09:52→13:21)
--- NOTE | 2016-08-20 10:52 | PN ---
DATE: 08/20/2016 SUBJECTIVE: The patient is seen sitting in chair. He is awake. He is alert. He is comfortable. H e denies any pain. He denies any shortness of breath. He denies any diarrhea. PHYSICAL EXAMINATION: GENERAL: Obese, middle-aged male sitting in chair. VITAL SIGNS: Blood pressure 131/83, heart rate ____, respiratory rate 20, temperature 97.7. HEENT: Normocephalic, atraumatic. NECK: Supple, no JVD. LUNGS: Bilateral equal air entry. No rales. CARDIAC: S1, S2, regular rate and rhythm, no murmur, no rub. ABDOMEN: Obese, distended, soft, nontender, bowel sounds present. EXTREMITIES: No lower extremity edema. INTAKE AND OUTPUT: 1080/1200. LABORATORY DATA: WBC 13.7, hemoglobin 14.9, hematocrit 43, platelets 321. Sodium 139, potassium 4.7 , chloride 110, CO2 of 22, BUN 38, creatinine 2.5, glucose 100, calcium 8.5, phosphorus 2.9, magnesiu m 1.9, albumin 3.1, corrected calcium is 9.1. MEDICATIONS: Cipro 250 q. 12, Coreg, vitamin D, Neutra-Phos, Plavix, sodium bicarbonate 650 t.i.d. ASSESSMENT: 1. Acute kidney injury, resolved. 2. Stable chronic kidney disease stage IV. 3. Resolved metabolic acidosis. 4. Resolving diarrhea. 5. No evidence of anemia of chronic kidney disease. 6. Non-insulin dependent diabetes mellitus. 7. Hypertension. PLAN: 1. Change sodium bicarbonate to 650 mg daily. 2. Complete antibiotics as per infectious disease recommendations. 3. Off IV fluids. 4. Stable renal function. 5. We will discontinue followup. Kaity Helms MD cc: [id number] TT: 08/20/2016 10:51:56 Confirmation # [id number] Dictation # [id number] tn
--- NOTE | 2016-08-20 14:04 | PN ---
DATE: 08/20/2016 Seen and examined at the bedside earlier today. The patient is out of bed in a chair. Denies any na usea, vomiting, or abdominal pain. He did have a bowel movement yesterday. No complaints of diarrhe a. He did not have any today. No new complaints. VITAL SIGNS: Temperature is 97.7, blood pressure 131/83, pulse 78, respirations 20, 98 on room air. LABORATORY DATA: Today, WBC is 13.7, H and H is 14.9 and 42.9, platelets of 321. His sodium is 139, K is 4.7, BUN 38, creatinine is 2.5, magnesium 1.9. LFTs are within normal limits. PHYSICAL EXAMINATION: HEENT: Sclerae are anicteric. NECK: Supple. CARDIAC: S1, S2. LUNGS: Sounds are clear. ABDOMEN: With bowel sounds, soft, not distended. No tenderness on palpation. ASSESSMENT: Resolved diarrhea, likely gastroenteritis. The patient came with acute renal failure wh ich may have been secondary to dehydration. He has a history of congestive heart failure, reducible umbilical hernia and coronary artery disease. PLAN: Continue current treatment: The patient is going to be sent home on Cipro for 3 more days and probiotic. Discussed with the patient that he would benefit from elective outpatient colonoscopy. He is going to be discharged home today and he is going to follow up with Dr. Meyer. The patient's c eliac disease panel was negative. The patient was seen and case discussed with Dr. Levy. Palua Duartees CASANDRA cc: 451 TT: 08/20/2016 14:03:12 Confirmation # [id number] Dictation # [id number] tn
--- NOTE | 2016-08-20 16:25 | PN ---
DATE: 08/20/2016 LOCATION: The patient is in room 572, bed #2. REASON FOR CONSULTATION AND FOLLOWUP VISIT: Coronary artery disease, history of AICD, cardiomyopathy , short run of ventricular tachycardia. HISTORY OF PRESENT ILLNESS: This is a 60-year-old male with past medical history significant for cor onary artery disease status post PTCA of LAD, history of cardiomyopathy, status post AICD insertion, hypothyroidism, chronic renal insufficiency with acute kidney injury on admission because the patient had massive diarrhea, so probably the patient has acute on chronic kidney injury due to dehydration. The patient now sitting in chair and denies any chest pain, shortness of breath, or palpitation. T he patient is being followed by Dr. Wright at [facility]. PHYSICAL EXAMINATION: VITAL SIGNS: Blood pressure 131/83, respirations 20, pulse 78, temperature 97.7. HEAD: Normocephalic. EYES: Pupils normal. Conjunctivae normal. NOSE AND THROAT: Normal. NECK: JVP low. Carotid equal. THORAX: AP diameter normal. LUNGS: Clear. CARDIOVASCULAR: S1, S2. ABDOMEN: Soft, no organomegaly. EXTREMITIES: No clubbing, no cyanosis. LABORATORY DATA: WBC 13.7, hemoglobin 14.9, hematocrit 42.9, platelets 321. Sodium 139, potassium 4 .7, BUN 38, creatinine 2.5, calcium 8.5, phosphorus 2.9, magnesium 1.9. AST, ALT normal. Total prot ein 6.4, albumin 3.1. IMPRESSION: Hypomagnesemia; hypophosphatemia; hypokalemia, which has improved; renal insufficiency, acute on chronic, probably due to dehydration due to severe diarrhea and that has also improved. The patient's creatinine improved from 5.8 to 2.6, and compared to 01/03/2016, the patient had a creatin ine of 2.5, so patient is back on his baseline creatinine at 2.5 now. History of coronary artery dis ease, history of PTCA of the left anterior descending artery 2-3 years ago at [facility], cardiomyopathy, mild mental retardation. The patient being followed by Dr. Wright. The patient's diarrhea has improved. Electrolyte has been corrected. The patient had no more run of V-tach. Two days ago, patient had a 10 beat run of V-tach, which was related to electro lyte imbalance. The patient is on carvedilol 3.125 b.i.d., aspirin 81 mg daily, Plavix 75 mg daily. We will continue present therapy. We will follow with you. Ayad Moreau MD cc: [id number] TT: 08/20/2016 16:25:20 Confirmation # [id number] Dictation # [id number] ln
--- NOTE | 2016-09-02 23:14 | DS ---
HOSPITAL COURSE: The patient is a 61-year-old developmentally disabled male admitted through the [facility] Department on 08/13/2016 with acute renal failure. The patient was admitted to the telemetry unit, received IV fluids, in consultation by renal, Drs. Winston and Analia with improvement of his re nal function. This hospital course was complicated by infectious diarrhea, which was successfully ladi ated with oral Cipro, and the patient was discharged to home in stable condition on 08/20/2016. DISCHARGE MEDICATIONS: The patient was discharged on the following medications: Carvedilol 3.125 mg twice daily, Cipro 250 mg q. 12 hours for 3-5 days, Ecotrin 81 mg daily, Bacid 1 cap twice daily, Fl omax 0.4 mg daily, Plavix 75 mg daily, sodium bicarbonate 650 mg daily, Synthroid 125 mcg daily, and insulin glargine 25 units daily. IMPRESSION: 1. Acute renal failure superimposed on chronic renal insufficiency due to dehydration from diuretics and uncontrolled blood sugar. 2. Coronary artery disease status post stent placement x 2. 3. Congestive heart failure. 4. Type 2 diabetes mellitus. 5. Hypothyroidism. 6. Benign prostatic hypertrophy. 7. Developmental disability. PLAN: The patient was discharged on a heart-healthy diet, activities ad libitum and he will be foll owed in the office 1-2 weeks status post discharge. Asa Meyer JD, MD cc: [id number] TT: 09/02/2016 23:14:36 ln
== END 2016-08-20 16:50 | disposition home or self-care (01) | DRG 316 ==
LOC: ED 09:33 → ERH 12:18 → 2RNO 15:12 → 5RSO 08-19 18:18
PROVIDERS: ADMIT Internal Medicine; ATTEND Internal Medicine
DX: N17.9 Acute kidney failure, unspecified (principal); N18.4 Chronic kidney disease, stage 4 (severe); E86.0 Dehydration; I47.2 Ventricular tachycardia; E87.2 Acidosis; I13.0 Hypertensive heart and chronic kidney disease with heart failure and stage 1 through stage 4 chronic kidney disease, or unspecified chronic kidney disease; I50.9 Heart failure, unspecified; E87.5 Hyperkalemia; I25.10 Atherosclerotic heart disease of native coronary artery without angina pectoris; K52.9 Noninfective gastroenteritis and colitis, unspecified; E03.9 Hypothyroidism, unspecified; N40.0 Benign prostatic hyperplasia without lower urinary tract symptoms; I34.0 Nonrheumatic mitral (valve) insufficiency; E78.5 Hyperlipidemia, unspecified; I25.5 Ischemic cardiomyopathy; K42.9 Umbilical hernia without obstruction or gangrene; T50.2X5A Adverse effect of carbonic-anhydrase inhibitors, benzothiadiazides and other diuretics, initial encounter; E83.42 Hypomagnesemia; F70 Mild intellectual disabilities; E55.9 Vitamin D deficiency, unspecified; E83.39 Other disorders of phosphorus metabolism; E66.9 Obesity, unspecified; Z68.32 Body mass index [BMI] 32.0-32.9, adult; Z79.84 Long term (current) use of oral hypoglycemic drugs; Z79.82 Long term (current) use of aspirin; Z79.4 Long term (current) use of insulin; Z79.02 Long term (current) use of antithrombotics/antiplatelets; Z86.718 Personal history of other venous thrombosis and embolism; Z95.810 Presence of automatic (implantable) cardiac defibrillator; Z95.5 Presence of coronary angioplasty implant and graft

== ENCOUNTER 2016-09-26 08:49 | Emergency (ER) | payer OTHER ==
[2016-09-26 08:50] VITALS: BMI 28.0
--- NOTE | 2016-09-26 09:14 | ED PDOC ---
Arrival/HPI - General Chief Complaint: Lower Extremity Problem/Injury Time Seen by Provider: 09/26/16 09:12 Historian: Patient - History of Present Illness Narrative History of Present Illness (Text): 09/26/16 09:14 61 y/o male, pmh including htn/ckd stage 4/chf/dm/hypothyroidism/ hyperparathyroidism, nkda, [facility] member, c/o left knee pain x 3 days with no fall or trauma. Pt. has staircase at his living home, been walking on it, aching pain, aggravated by walking, no calf pain, no fever or chills, no numbness or tinging, no palpitation, no night sweat, no other medical or psychological complaints. 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 - Surgical History Hx Cardiac Catheterization: Yes Hx Coronary Stent: Yes Other/Comment: cardiac cath, pacemaker with internal defribilator - Anesthesia Hx Anesthesia: Yes Hx Anesthesia Reactions: No Hx Malignant Hyperthermia: No - Suicidal Assessment Feels Threatened In Home Enviroment: No Family/Social History - Physician Review Nursing Documentation Reviewed: Yes Family/Social History: Unknown Family HX Smoking Status: Never Smoked Hx Alcohol Use: No Hx Substance Use: No Hx Substance Use Treatment: No Allergies/Home Meds Allergies/Adverse Reactions: Allergies No Known Allergies Allergy (Verified 08/13/16 15:21) Home Medications: Home Meds Medication Instructions Recorded Confirmed Aspirin [Aspirin Chewable] 81 mg PO DAILY 01/03/16 09/26/16 Carvedilol [Coreg] 25 mg PO BID 01/03/16 09/26/16 Insulin Glargine,Hum.rec.anlog 25 unit SC DAILY 01/03/16 09/26/16 [Demarcus Amaral] Levothyroxine [Synthroid] 125 mcg PO DAILY 01/03/16 09/26/16 glyBURIDE [Micronase] 2.5 mg PO DAILY 01/03/16 09/26/16 Review of Systems - Review of Systems Constitutional: absent: Fatigue, Fevers Eyes: absent: Vision Changes ENT: absent: Hearing Changes Respiratory: absent: SOB, Cough Cardiovascular: absent: Chest Pain Gastrointestinal: absent: Abdominal Pain, Nausea, Vomiting Musculoskeletal: Arthralgias. absent: Back Pain, Neck Pain, Joint Swelling, Myalgias Skin: absent: Rash, Pruritis, Skin Lesions Physical Exam Vital Signs Reviewed: Yes Vital Signs Temp Pulse Resp BP Pulse Ox 09/26/16 11:05 98.3 F 75 19 124/73 99 09/26/16 10:03 98 F 85 19 142/75 98 09/26/16 08:55 98.6 F 90 18 143/87 97 Temperature: Afebrile Blood Pressure: Normal Pulse: Regular Respiratory Rate: Normal Appearance: Positive for: Well-Appearing, Non-Toxic, Comfortable Pain Distress: Moderate Mental Status: Positive for: Alert and Oriented X 3 - Systems Exam Head: Present: Atraumatic, Normocephalic Pupils: Present: PERRL Extroacular Muscles: Present: EOMI Conjunctiva: Present: Normal Mouth: Present: Moist Mucous Membranes Neck: Present: Normal Range of Motion Respiratory/Chest: Present: Clear to Auscultation, Good Air Exchange. No: Respiratory Distress, Accessory Muscle Use Cardiovascular: Present: Regular Rate and Rhythm, Normal S1, S2. No: Murmurs Abdomen: Present: Normal Bowel Sounds. No: Tenderness, Distention, Peritoneal Signs Back: Present: Normal Inspection Upper Extremity: Present: Normal Inspection. No: Cyanosis, Edema Lower Extremity: Present: Normal Inspection, Other (Lt. knee: +ttp on the and generalized swelling on the anterior aspect of the knee, no deformity, normal skin color with no erythematous or redness, negative kyle and daniel signs, FROM without limitation, sensation intact, motor 5/5, +DPPT pulses, capillary refill< 2 seconds, neurovascular intact. ). No: Edema Neurological: Present: GCS=15, Speech Normal, Motor Func Grossly Intact, Gait Normal, Memory Normal Skin: Present: Warm, Dry, Normal Color. No: Rashes Psychiatric: Present: Alert, Oriented x 3, Normal Insight, Normal Concentration Medical Decision Making ED Course and Treatment: 09/26/16 09:33 -lt. knee xray -LLE venuous doppler -percocet -observe and reassess 09/26/16 10:42 -Pain decreased, tommy wrap applied by me with neurovascular intact. -Lt. knee xray: no fracture or dislocation but there is degenerative changes -LLE venuous doppler: as per preliminary report, no acute DVT -Ideally the nsaid is a good medication for the patient but he has CKD with creatinine 2.5, will give tylenol and supportive treatment. -Discharge home with tylenol, tommy wrap, cane, avoid excessive walking, follow up with your own pmd and orthopedic within 2 days, if pain persist over 7 days with no improvement then additional imaging such as MRI will be indicated at outpatient, return to the ER for any new or worsening signs or symptoms. - RAD Interpretation Radiology Orders: 09/26/16 09:24 KNEE WITH PATELLA LEFT 3 VIEW [RAD] Stat DUPLEX LOWER EXTRM VEIN LEFT [US] Stat LLE venuous doppler: as per preliminary report, no acute DVT PROCEDURE: Left Knee Radiographs. HISTORY: Pain. COMPARISON: None. FINDINGS: BONES: Normal. No fracture. JOINTS: Minimal degenerative changes in the patellofemoral joint JOINT EFFUSION: None. OTHER FINDINGS: None. IMPRESSION: No acute findings Software Lead: Radiologist - Medication Orders Current Medication Orders: Discontinued Medications Oxycodone/Acetaminophen (Percocet 5/325 Mg Tab) 1 tab PO STAT STA Stop: 09/26/16 09:25 Last Admin: 09/26/16 09:58 Dose: 1 tab Re-Assess: JOSE L Pain Assessment Document 09/26/16 10:58 GMI (Rec: 09/26/16 11:07 GMI [id number]) Pain Reassessment Is this a pain reassessment? Yes Sleep Is patient sleeping during reassessment? No Presence of Pain Presence of Pain No - PA / CERTIFIED NOVELL ENGINEER / Resident Statement / has reviewed & agrees with the documentation as recorded. Disposition/Present on Arrival - Present on Arrival Any Indicators Present on Arrival: No History of DVT/PE: No History of Uncontrolled Diabetes: No Urinary Catheter: No History of Decub. Ulcer: No History Surgical Site Infection Following: None - Disposition Have Diagnosis and Disposition been Completed?: Yes Diagnosis: Knee pain, Degenerative joint disease Disposition: HOME/ ROUTINE Disposition Time: 09:34 Patient Plan: Discharge Condition: IMPROVED Additional Instructions: -Discharge home with tylenol, tommy wrap, cane, avoid excessive walking, follow up with your own pmd and orthopedic within 2 days, if pain persist over 7 days with no improvement then additional imaging such as MRI will be indicated at outpatient, return to the ER for any new or worsening signs or symptoms. Referrals: Asa Meyer JD, MD [Primary Care Provider] - Follow up with primary Everardo Castro DO [Staff Provider] - Follow up with primary Forms: WORK NOTE
[2016-09-26] MEDS ORDERED: Oxycodone/Acetaminophen 5/325 mg Tab PO STA (09:24)
[2016-09-26 10:04] VITALS: RESP 19
[2016-09-26 11:06] VITALS: BP 124/73; PULSE 75; TEMP 98.3; O2SAT 99
--- NOTE | 2016-09-26 11:27 | RAD ---
PROCEDURE: Left Knee Radiographs. HISTORY: Pain. COMPARISON: None. FINDINGS: BONES: Normal. No fracture. JOINTS: Minimal degenerative changes in the patellofemoral joint JOINT EFFUSION: None. OTHER FINDINGS: None. IMPRESSION: No acute findings
--- NOTE | 2016-09-26 18:46 | US ---
PROCEDURE: Left lower extremity venous US HISTORY: Leg pain and swelling. Evaluate for DVT. PHYSICIAN(S): Merlin Nagy MD. TECHNIQUE: Duplex sonography and color-flow Doppler with graded compression were used to evaluate the deep venous system of the left lower extremity. FINDINGS: The visualized deep venous system of the left lower extremity is sonographically normal and compressible. Normal wave forms and augmentation are seen. There is no sonographic evidence for deep venous thrombosis in the visualized segments of the left lower extremity. IMPRESSION: 1. No sonographic evidence for deep venous thrombosis in the visualized segments of the left lower extremity.
== END 2016-09-26 11:09 | disposition home or self-care (01) ==
LOC: ED 08:49
DX: M25.562 Pain in left knee (principal); M19.90 Unspecified osteoarthritis, unspecified site; I12.9 Hypertensive chronic kidney disease with stage 1 through stage 4 chronic kidney disease, or unspecified chronic kidney disease; N18.4 Chronic kidney disease, stage 4 (severe); E10.9 Type 1 diabetes mellitus without complications; I50.9 Heart failure, unspecified; E03.9 Hypothyroidism, unspecified; E21.3 Hyperparathyroidism, unspecified; J44.9 Chronic obstructive pulmonary disease, unspecified

== ENCOUNTER 2016-12-31 08:31 | Inpatient (IN) | payer OTHER ==
[2016-12-31] MEDS ORDERED: Sodium Chloride 0.9% 500 ML IV STA (08:44)
--- NOTE | 2016-12-31 08:47 | ED PDOC ---
Arrival/HPI - General Chief Complaint: GI Problem Time Seen by Provider: 12/31/16 08:34 - History of Present Illness Narrative History of Present Illness (Text): 12/31/16 08:44 A 61 year old male, whose past medical history includes hypertension, diabetes, and CAD, presents to the emergency department with generalized weakness and diarrhea for the past several days. The patient notes that he was admitted several months ago for renal failure. The patient denies fevers, chills, headache, dizziness, chest pain, shortness of breath, dyspnea on exertion, cough , abdominal pain, nausea, vomiting, back pain, neck pain, urinary/bowel changes , or any other complaint. Time/Duration: Other (Several Days) Symptom Onset: Sudden Symptom Course: Unchanged Activities at Onset: Rest, Light Context: Home Past Medical History - Provider Review Nursing Documentation Reviewed: Yes - Infectious Disease Hx of Infectious Diseases: None - Tetanus Immunization Tetanus Immunization: Unknown - Cardiac Hx Cardiac Disorders: Yes Hx Congestive Heart Failure: Yes Hx Hypertension: Yes - Pulmonary Hx Respiratory Disorders: Yes Hx Chronic Obstructive Pulmonary Disease (COPD): Yes - Neurological Hx Neurological Disorder: Yes (MR) - HEENT Hx HEENT Disorder: No - Renal Hx Renal Disorder: Yes Hx Renal Failure: Yes - Endocrine/Metabolic Hx Endocrine Disorders: Yes Hx Diabetes Mellitus Type 1: Yes Hx Hypothyroidism: Yes - Hematological/Oncological Hx Blood Disorders: No - Integumentary Hx Dermatological Disorder: Yes - Musculoskeletal/Rheumatological Hx Musculoskeletal Disorders: Yes Hx Falls: Yes - Gastrointestinal Hx Gastrointestinal Disorders: No - Genitourinary/Gynecological Hx Genitourinary Disorders: No - Psychiatric Hx Psychophysiologic Disorder: Yes Hx Substance Use: No Other/Comment: Developmental delay. - Surgical History Hx Cardiac Catheterization: Yes Hx Coronary Stent: Yes Other/Comment: cardiac cath, pacemaker with internal defribilator - Anesthesia Hx Anesthesia: Yes Hx Anesthesia Reactions: No Hx Malignant Hyperthermia: No - Suicidal Assessment Feels Threatened In Home Enviroment: No Family/Social History - Physician Review Nursing Documentation Reviewed: Yes Family/Social History: No Known Family HX Smoking Status: Never Smoked Hx Alcohol Use: No Hx Substance Use: No Hx Substance Use Treatment: No Allergies/Home Meds Allergies/Adverse Reactions: Allergies No Known Allergies Allergy (Verified 12/31/16 12:11) Home Medications: Home Meds Medication Instructions Recorded Confirmed Carvedilol [Coreg] 25 mg PO BID 01/03/16 12/31/16 Levothyroxine [Synthroid] 125 mcg PO DAILY 01/03/16 12/31/16 glyBURIDE [Micronase] 5 mg PO DAILY 01/03/16 12/31/16 Aspirin [Aspirin EC] 81 mg PO DAILY 12/31/16 12/31/16 Calcitriol [Rocaltrol] 0.25 mcg PO DAILY 12/31/16 12/31/16 Enalapril Maleate [Vasotec] 10 mg PO DAILY 12/31/16 12/31/16 Ergocalciferol (Vitamin D2) 1.25 mg PO .WEEKLY 12/31/16 12/31/16 [Vitamin D2] Furosemide [Lasix] 80 mg PO DAILY 12/31/16 12/31/16 Insulin Glargine,Hum.rec.anlog 25 units SC HS 12/31/16 12/31/16 [Toujeo Solostar] Ketoconazole 2% Cr [Nizoral] 1 appful TOP BID 12/31/16 12/31/16 Omeprazole [Omeprazole] 20 mg PO DAILY 12/31/16 12/31/16 Review of Systems - Physician Review All systems were reviewed & negative as marked: Yes - Review of Systems Constitutional: absent: Fevers, Night Sweats ENT: absent: Sore Throat Respiratory: absent: SOB, Cough Cardiovascular: absent: Chest Pain, CHASE Gastrointestinal: Diarrhea. absent: Abdominal Pain, Stool Changes, Nausea, Vomiting Genitourinary Male: absent: Urinary Output Changes Musculoskeletal: absent: Neck Pain Neurological: Other (Generalized wekaness.). absent: Headache, Dizziness Physical Exam Vital Signs Reviewed: Yes Vital Signs Temp Pulse Resp BP Pulse Ox 12/31/16 11:19 101/66 12/31/16 11:08 89 18 93/59 L 98 12/31/16 08:36 97.8 F 106 H 17 113/69 99 Temperature: Afebrile Blood Pressure: Normal Pulse: Regular Respiratory Rate: Normal Appearance: Positive for: Well-Appearing, Non-Toxic, Comfortable Pain Distress: None Mental Status: Positive for: Alert and Oriented X 3 - Systems Exam Head: Present: Atraumatic, Normocephalic Pupils: Present: PERRL Extroacular Muscles: Present: EOMI Conjunctiva: Present: Normal Mouth: Present: Moist Mucous Membranes Neck: Present: Normal Range of Motion Respiratory/Chest: Present: Clear to Auscultation, Good Air Exchange. No: Respiratory Distress, Accessory Muscle Use Cardiovascular: Present: Regular Rate and Rhythm, Normal S1, S2. No: Murmurs Abdomen: Present: Normal Bowel Sounds. No: Tenderness, Distention, Peritoneal Signs Back: Present: Normal Inspection Upper Extremity: Present: Normal Inspection. No: Cyanosis, Edema Lower Extremity: Present: Normal Inspection. No: Edema Neurological: Present: GCS=15, CN II-XII Intact, Speech Normal Skin: Present: Warm, Dry, Normal Color. No: Rashes Psychiatric: Present: Alert, Oriented x 3, Normal Insight, Normal Concentration Medical Decision Making ED Course and Treatment: 12/31/16 08:47 Impression: A 61 year old male presents to the emergency department with diarrhea and generalized weakness. Plan: -- EKG -- Chest X-ray -- Urinalysis -- IV Fluids -- Labs -- Reassess and disposition Prior Visits: Notes and results from previous visits were reviewed. Patient was last seen in the emergency department on 09/26/2016. The patient was seen in the emergency department for left knee pain. He was d/c home and advised to follow up with his PMD and Dr. Castro. Progress Notes: 12/31/16 09:08 EKG: Ordered, reviewed, and independently interpreted the EKG. Rate : 104 BPM Rhythm : Sinus tachycardia Interpretation : No ST/T- wave changes. No interval changes. CHEST X-RAY Dictator : Everardo Mendiola MD Report Date : 12/31/2016 10:23:18 IMPRESSION: No active disease. - Lab Interpretations Lab Results: 12/31/16 08:59 12/31/16 08:59 Lab Results 12/31/16 08:59: Sodium 142, Potassium 5.3 H, Chloride 108 H, Carbon Dioxide 16 L , Anion Gap 23 H, BUN 103 H, Creatinine 5.0 H, Est GFR ( Amer) 14, Est GFR (Non-Af Amer) 12, Random Glucose 132 H, Calcium 8.8, Total Bilirubin 1.0, AST 17, ALT 16, Alkaline Phosphatase 72, Lactate Dehydrogenase 446, Total Creatine Kinase 47, Troponin I 0.04, Total Protein 8.7 H, Albumin 4.1, Globulin 4.5, Albumin/Globulin Ratio 0.9 L, Amylase 148 H, Lipase 295 12/31/16 08:59: PT 10.6, INR 0.98, APTT 30.1 12/31/16 08:59: WBC 16.7 H D, RBC 5.48, Hgb 17.0, Hct 49.0, MCV 89.4, MCH 31.0, MCHC 34.7, RDW 13.8, Plt Count 330, MPV 10.5, Gran % 78.3 H, Lymph % (Auto) 9.8 L, [place] % (Auto) 8.1 H, Eos % (Auto) 3.7, Baso % (Auto) 0.1, Gran # 13.05 H, Lymph # 1.6, [place] # 1.4 H, Eos # 0.6, Baso # 0.02 12/31/16 08:51: POC Glucose (mg/dL) 118 H I have reviewed the lab results: Yes - RAD Interpretation Radiology Orders: 12/31/16 08:43 CHEST PORTABLE [RAD] Stat - EKG Interpretation Interpreted by ED Physician: Yes Type: 12 lead EKG - Medication Orders Current Medication Orders: Aspirin (Aspirin Chewable) 81 mg PO DAILY ALFONSO Carvedilol (Coreg) 25 mg PO BID ALFONSO Clopidogrel Bisulfate (Plavix) 75 mg PO DAILY ALFONSO Glyburide (Micronase) 5 mg PO 0800 ALFONSO Sodium Chloride (Sodium Chloride 0.9%) 1,000 mls @ 100 mls/hr IV .Q10H ALFONSO Last Admin: 12/31/16 10:53 Dose: 100 mls/hr eMAR Start Stop Document 12/31/16 10:53 MR (Rec: 12/31/16 10:55 MR [id number]) Intravenous Solution Start Date 12/31/16 Start Time 10:33 Insulin Human Regular (Humulin R Low) 1 units SC ACHS ALFONSO PRN Reason: Protocol Levothyroxine Sodium (Synthroid) 125 mcg PO 0600 ALFONSO Pantoprazole Sodium (Protonix Ec Tab) 40 mg PO 0600 ALFONSO Sodium Bicarbonate (Sodium Bicarbonate Tab) 650 mg PO DAILY ALFONSO Tamsulosin HCl (Flomax) 0.4 mg PO DAILY ALFONSO Discontinued Medications Sodium Chloride (Sodium Chloride 0.9%) 500 mls @ 999 mls/hr IV .Q31M STA Stop: 12/31/16 09:14 Last Admin: 12/31/16 09:05 Dose: 999 mls/hr eMAR Start Stop Document 12/31/16 09:05 (Rec: 12/31/16 09:07 [id number]) Intravenous Solution Start Date 12/31/16 Start Time 09:05 End Date 12/31/16 End time 09:35 Total Infusion Time 30 Pneumococcal Polyvalent Vaccine (Pneumovax 23 Vaccine) 0.5 ml IM .ONCE ONE Stop: 12/31/16 14:53 - Scribe Statement The provider has reviewed the documentation as recorded by the Robertoibkeli Nix Provider Scribe Attestation: All medical record entries made by the Scribe were at my direction and personally dictated by me. I have reviewed the chart and agree that the record accurately reflects my personal performance of the history, physical exam, medical decision making, and the department course for this patient. I have also personally directed, reviewed, and agree with the discharge instructions and disposition. Disposition/Present on Arrival - Present on Arrival Any Indicators Present on Arrival: No History of DVT/PE: No History of Uncontrolled Diabetes: No Urinary Catheter: No History of Decub. Ulcer: No History Surgical Site Infection Following: None - Disposition Have Diagnosis and Disposition been Completed?: Yes Diagnosis: Renal failure, Diarrhea, Dehydration Disposition: HOSPITALIZED Disposition Time: 11:00 Patient Problems: Current Active Problems Problem Status Onset Dehydration Acute Diarrhea Acute Renal failure Acute Condition: FAIR
[2016-12-31 09:05] LABS: BASO # 0.02 K/mm3 (0.0-2.0); BASO % 0.1 % (0.0-3.0); EOS # 0.6 (0.0-0.7); EOS % 3.7 % (1.5-5.0); GRAN # 13.05 (1.4-6.5); GRAN % 78.3 % (50.0-68.0); LYMPH # 1.6 (1.2-3.4); LYMPH % 9.8 % (22.0-35.0); MEAN CELL VOLUME 89.4 fl (80.0-105.0); MEAN CORPUSCULAR HGB CONC 34.7 g/dl (31.0-37.0); MEAN PLATELET VOLUME 10.5 fl (7.0-11.0); MONO # 1.4 (0.1-0.6); MONO % 8.1 % (1.0-6.0); RED CELL DISTRIBUTION WIDTH 13.8 % (11.5-14.5); WHITE BLOOD COUNT 16.7 10^3/ul (4.5-11.0)
[2016-12-31 09:15] LABS: ALB/GLOB RATIO 0.9 (1.1-1.8); CALCIUM 8.8 mg/dL (8.4-10.5); POTASSIUM 5.3 mmol/L (3.6-5.0); TOTAL PROTEIN 8.7 g/dL (5.8-8.3)
[2016-12-31 09:16] LABS: INR 0.98 (0.93-1.08); PARTIAL THROMBOPLASTIN TIME 30.1 Seconds (23.7-30.8)
[2016-12-31 09:26] LABS: TROPONIN I 0.04 ng/mL
[2016-12-31] MEDS ORDERED: Sodium Chloride 0.9% 1,000 ML IV SCH (10:15)
--- NOTE | 2016-12-31 10:24 | RAD ---
HISTORY: cough COMPARISON: 08/13/2016 FINDINGS: LUNGS: No active pulmonary disease. PLEURA: No significant pleural effusion identified, no pneumothorax apparent. CARDIOVASCULAR: Mild cardiomegaly. Single lead pacemaker OSSEOUS STRUCTURES: No significant abnormalities. VISUALIZED UPPER ABDOMEN: Normal. OTHER FINDINGS: None. IMPRESSION: No active disease.
--- NOTE | 2016-12-31 12:51 | CARD ---
APPROVED REPORT EKG Measurement Heart [id number] <Conclusion> Sinus tachycardia Left axis deviation Inferior infarct, age Old. Cannot Rule Out Anterolateral infarct, age Old.
[2016-12-31 14:52] VITALS: BMI 33.4
[2016-12-31] MEDS ORDERED: Pneumococcal 23-Valent Vaccine IM ONE (14:52)
[2016-12-31] MEDS ORDERED: Influenza Vaccine 60 mcg/0.5 mL SYR (4YR UP) IM ONE (14:52)
[2016-12-31] MEDS: Insulin Reg-LOW-Coverage SC SCH ×2 (17:14→22:00)
--- NOTE | 2016-12-31 21:17 | CON ---
DATE: 12/31/2016 REASON FOR CONSULTATION: Acute kidney injury. HISTORY OF PRESENT ILLNESS: A 61-year-old male with history of NIDDM, hypertension, chronic kidney disease stage IV, is admitted with complaints of diarrhea, nausea, vomiting of 2 days' duration. Poor p.o. intake. He is found to be in acute kidney injury. His creatinine is 5.0. His baseline creatinine is around 2.6. He is also found to be hyperkalemic, acidotic. Hence consultation is requested. The patient denies any abdominal pain. He denies any fevers or chills. He denies any pain in any part of the body. He denies any cough or shortness of breath. He is currently receiving normal saline at 100 mL per hour. PAST MEDICAL AND SURGICAL HISTORY: NIDDM, hypertension, CAD, chronic kidney disease stage IV, anemia of chronic kidney disease, CHF, COPD. FAMILY HISTORY: Noncontributory. SOCIAL HISTORY: No smoking, no alcohol use, no IV drug abuse. ALLERGIES: NO KNOWN DRUG ALLERGIES. MEDICATIONS AT HOME: Lasix 80 mg, sodium bicarbonate 650, Flomax, Coreg 25 b.i.d., Synthroid, enalapril 10, glyburide, vitamin D. REVIEW OF SYSTEMS: All systems are reviewed, pertinent positives as mentioned in history of presenting illness, rest unremarkable. PHYSICAL EXAMINATION: GENERAL: Obese, elderly male lying in bed. VITAL SIGNS: Blood pressure 106/75, heart rate 93, respiratory rate 18, temperature 97.5. HEENT: Normocephalic, atraumatic. NECK: Supple, no JVD. LUNGS: Bilateral equal air entry, no rales. CARDIAC: S1 and S2, regular rate and rhythm, no murmur, no rub. ABDOMEN: Obese, distended, soft, nontender, bowel sounds present. EXTREMITIES: No lower extremity edema. INTAKE AND OUTPUT: Not charted. LABORATORY DATA: WBC 16.7, hemoglobin 17, hematocrit 49, platelets 330. Sodium 142, potassium 5.3, chloride 108, CO2 of 16, BUN 103, creatinine 5.0, glucose 132, calcium 8.8, albumin 4.1. CURRENT MEDICATIONS: Aspirin, Coreg, Flomax, Micronase, Plavix, Protonix, sodium bicarbonate 650 daily, normal saline at 100. ASSESSMENT: 1. Acute kidney injury superimposed on chronic kidney disease stage IV. 2. Suspect prerenal azotemia. 3. Hyperkalemia secondary to acute kidney injury. 4. Anion gap metabolic acidosis. 5. Tvc-ktswfvk-dashfopvt diabetes mellitus. 6. Hypertension. 7. Coronary artery disease. PLAN: 1. Agree with IV fluid resuscitation, add 1 ampule of sodium bicarbonate to half-normal saline at 80 mL per hour. 2. Monitor urine output. 3. Monitor fingersticks. 4. Avoid nephrotoxins. 5. Check stool studies. 6. PRN antibiotics. Thank you for the courtesy of this consultation. We will follow this patient closely with you. Kaity Helms MD
--- NOTE | 2017-01-01 01:59 | HP ---
HISTORY OF PRESENT ILLNESS: The patient is a 61-year-old male admitted through the Emergency Department with several days of diarrhea, decreased p.o. intake and abdominal discomfort. The patient was found to be in acute renal failure with a creatinine of 5.0 and he was admitted for further management workup. The patient was started on IV saline in the Emergency Department. He denies any nausea, vomiting. No chest pain. No shortness of breath. No melena. No bright red blood per rectum. No jaundice. PAST MEDICAL HISTORY: Includes coronary artery disease status post PTCA and stent placement x2. The patient is status post pacemaker placement approximately 2 years ago. He has a history of hypothyroidism, CHF and developmental disability as well as type 2 diabetes mellitus, which is insulin requiring. PAST SURGICAL HISTORY: Includes BPH. ALLERGIES: THE PATIENT HAS NO KNOWN ALLERGIES. CURRENT MEDICATIONS: Include Coreg 25 mg twice daily, Lipitor 20 mg daily, Ecotrin 81 mg daily, Plavix 75 mg daily, glyburide 5 mg daily, insulin glargine 25 units at bedtime, Synthroid 125 mcg daily, sodium bicarbonate 650 mg daily and Flomax 0.4 mg daily. SOCIAL HISTORY: There is no history of tobacco or alcohol or drug use. FAMILY HISTORY: Noncontributory. REVIEW OF SYSTEMS: As above. The patient [facility] in an [facility]. There is no reported outbreaks of infectious illness. PHYSICAL EXAMINATION: GENERAL: The patient is a well-developed male in no acute distress. VITAL SIGNS: Blood pressure 106/75, pulse 93, temperature 97.5 and respiratory rate is 18. HEENT: Head is normocephalic and atraumatic. Pupils are equal, round and reactive to light. Extraocular movements are intact. NECK: Supple. No thyromegaly. No carotid bruit. LUNGS: Clear to auscultation and percussion. HEART: Regular rate and rhythm. There is a permanent pacemaker in the left chest wall, which is intact. ABDOMEN: Soft and nontender. Bowel sounds are mildly hyperactive. EXTREMITIES: Without cyanosis, clubbing or edema. NEUROLOGIC: The patient is awake and responsive without focal sensory or motor deficit. SKIN: Warm and dry. LABORATORY DATA: WBC is elevated at 16.7, hemoglobin 17.0 and hematocrit 49.0. Sodium 142, potassium 5.3, chloride 108, CO2 is 16, BUN 103, creatinine 5.0 and glucose 132. Amylase is slightly elevated at 148. Lipase is normal 295. IMPRESSION: 1. Acute renal failure secondary to volume depletion, rule out underlying gastroenteritis, rule out ischemic bowel. 2. Coronary artery disease status post stent placement x2. 3. Congestive heart failure. 4. Type 2 diabetes mellitus. 5. Hypothyroidism. 6. Benign prostatic hypertrophy. 7. Developmental disability. PLAN: The patient is admitted to telemetry unit. He was receiving IV saline. We will obtain renal consult with Dr. Winston and Dr. Helms. Monitor Accu-Cheks with regular insulin coverage. Repeat electrolytes and CBC. Social work for discharge planning. SANTOS Cespedes MD
[2017-01-01] MEDS: Pantoprazole 40 mg EC Tab PO SCH (05:28)
[2017-01-01] MEDS: Levothyroxine 125 MCG TAB PO SCH (05:29)
[2017-01-01 07:44] LABS: HEMATOCRIT 46.7 % (42.0-52.0); MEAN CELL VOLUME 90.3 fl (80.0-105.0); MEAN CORPUSCULAR HGB CONC 33.2 g/dl (31.0-37.0); MEAN PLATELET VOLUME 10.7 fl (7.0-11.0); WHITE BLOOD COUNT 16.4 10^3/ul (4.5-11.0)
[2017-01-01 08:10] LABS: TOTAL PROTEIN 7.7 g/dL (5.8-8.3)
[2017-01-01 08:26] LABS: POTASSIUM 6.4 mmol/L (3.6-5.0)
[2017-01-01] MEDS: Insulin Reg-LOW-Coverage SC SCH ×4 (08:34→23:35)
[2017-01-01] MEDS ORDERED: Sod Polystyrene Sulf 15 gm/60 ml Susp PO ONE (09:10)
--- NOTE | 2017-01-01 09:41 | CP.PCM.PN ---
Subjective - Date & Time of Evaluation Date of Evaluation: 01/01/17 Time of Evaluation: 09:00 - Subjective Subjective: c/o diarrhea, non-bloody, denies and pain, no nausea/vomiting Objective - Vital Signs/Intake and Output Vital Signs (last 24 hours): Temp Pulse Resp BP Pulse Ox 97.5 F L 89 20 101/63 99 01/01/17 07:30 01/01/17 07:30 01/01/17 07:30 01/01/17 07:30 01/01/17 07:30 Intake and Output: 01/01/17 01/01/17 06:59 18:59 Intake Total 1860 Output Total 4 Balance 1856 - Medications Medications: Current Medications Aspirin (Aspirin Chewable) 81 mg PO DAILY [facility] Last Admin: 01/01/17 09:23 Dose: 81 mg Carvedilol (Coreg) 25 mg PO BID [facility] Last Admin: 01/01/17 09:23 Dose: 25 mg Ciprofloxacin (Cipro) 500 mg PO Q12 [facility] PRN Reason: Protocol Stop: 01/01/17 22:01 Last Admin: 01/01/17 09:31 Dose: 500 mg Clopidogrel Bisulfate (Plavix) 75 mg PO DAILY [facility] Last Admin: 01/01/17 09:23 Dose: 75 mg Glyburide (Micronase) 5 mg PO 0800 [facility] Last Admin: 01/01/17 08:38 Dose: 5 mg Sodium Bicarbonate 50 meq/ (Sodium Chloride) 1,050 mls @ 80 mls/hr IV .Q13H8M [facility] Last Admin: 01/01/17 05:28 Dose: 80 mls/hr Insulin Human Regular (Humulin R Low) 1 units SC [facility] PRN Reason: Protocol Last Admin: 01/01/17 08:34 Dose: Not Given Levothyroxine Sodium (Synthroid) 125 mcg PO 0600 [facility] Last Admin: 01/01/17 05:29 Dose: 125 mcg Pantoprazole Sodium (Protonix Ec Tab) 40 mg PO 0600 [facility] Last Admin: 01/01/17 05:28 Dose: 40 mg Sodium Bicarbonate (Sodium Bicarbonate Tab) 650 mg PO DAILY [facility] Last Admin: 01/01/17 09:23 Dose: 650 mg Tamsulosin HCl (Flomax) 0.4 mg PO DAILY [facility] Last Admin: 01/01/17 09:23 Dose: 0.4 mg - Labs Labs: 01/01/17 07:30 01/01/17 07:30 PT 10.6 Seconds (9.9-11.8) 12/31/16 08:59 INR 0.98 (0.93-1.08) 12/31/16 08:59 APTT 30.1 Seconds (23.7-30.8) 12/31/16 08:59 - Respiratory Exam Respiratory Exam: Clear to Ausculation Bilateral, NORMAL BREATHING PATTERN - Cardiovascular Exam Cardiovascular Exam: REGULAR RHYTHM - GI/Abdominal Exam GI & Abdominal Exam: Soft, Hyperactive Bowel Sounds - Extremities Exam Extremities Exam: Normal Inspection - Neurological Exam Neurological Exam: Alert, Awake - Skin Skin Exam: Dry, Warm Assessment and Plan (1) Diarrhea Status: Acute (2) Hyperkalemia Status: Acute (3) Metabolic acidosis Status: Acute (4) Renal failure Status: Acute (5) Coronary artery disease Assessment & Plan: continue IV fluid/bicarb, Kayexalate 30g PO, repeat K+, transfer to telemetry for elevated potassium, start empiric Cipro 500mg bid for infectious diarrhea, renal follow-up Status: Chronic
[2017-01-01 11:09] LABS: ALB/GLOB RATIO 0.9 (1.1-1.8); BILIRUBIN,TOTAL 0.7 mg/dL (0.2-1.3); POTASSIUM 5.2 mmol/L (3.6-5.0); TOTAL PROTEIN 7.6 g/dL (5.8-8.3)
[2017-01-02] MEDS: Levothyroxine 125 MCG TAB PO SCH (06:54)
[2017-01-02] MEDS: Pantoprazole 40 mg EC Tab PO SCH (06:54)
[2017-01-02] MEDS: Insulin Reg-LOW-Coverage SC SCH ×4 (08:23→22:00)
--- NOTE | 2017-01-02 09:48 | CP.PCM.PN ---
Subjective - Date & Time of Evaluation Date of Evaluation: 01/02/17 Time of Evaluation: 09:15 - Subjective Subjective: diarrhea improving, no abdominal pain, no melena, no BRBPR Objective - Vital Signs/Intake and Output Vital Signs (last 24 hours): Temp Pulse Resp BP Pulse Ox 97.9 F 89 20 102/83 97 01/02/17 06:00 01/02/17 06:00 01/02/17 06:00 01/02/17 06:00 01/02/17 06:00 Intake and Output: 01/02/17 01/02/17 06:59 18:59 Intake Total 480 Balance 480 - Medications Medications: Current Medications Aspirin (Aspirin Chewable) 81 mg PO DAILY [facility] Last Admin: 01/01/17 09:23 Dose: 81 mg Carvedilol (Coreg) 25 mg PO BID [facility] Last Admin: 01/01/17 18:43 Dose: 25 mg Clopidogrel Bisulfate (Plavix) 75 mg PO DAILY [facility] Last Admin: 01/01/17 09:23 Dose: 75 mg Glyburide (Micronase) 5 mg PO 0800 [facility] Last Admin: 01/01/17 08:38 Dose: 5 mg Sodium Bicarbonate 50 meq/ (Sodium Chloride) 1,050 mls @ 80 mls/hr IV .Q13H8M [facility] Last Admin: 01/01/17 17:43 Dose: 80 mls/hr Insulin Human Regular (Humulin R Low) 1 units SC [facility] PRN Reason: Protocol Last Admin: 01/02/17 08:23 Dose: Not Given Levothyroxine Sodium (Synthroid) 125 mcg PO 0600 [facility] Last Admin: 01/02/17 06:54 Dose: 125 mcg Pantoprazole Sodium (Protonix Ec Tab) 40 mg PO 0600 [facility] Last Admin: 01/02/17 06:54 Dose: 40 mg Sodium Bicarbonate (Sodium Bicarbonate Tab) 650 mg PO DAILY [facility] Last Admin: 01/01/17 09:23 Dose: 650 mg Tamsulosin HCl (Flomax) 0.4 mg PO DAILY [facility] Last Admin: 01/01/17 09:23 Dose: 0.4 mg - Labs Labs: 01/01/17 07:30 01/01/17 10:50 PT 10.6 Seconds (9.9-11.8) 12/31/16 08:59 INR 0.98 (0.93-1.08) 12/31/16 08:59 APTT 30.1 Seconds (23.7-30.8) 12/31/16 08:59 - Respiratory Exam Respiratory Exam: Clear to Ausculation Bilateral, NORMAL BREATHING PATTERN - Cardiovascular Exam Cardiovascular Exam: REGULAR RHYTHM - GI/Abdominal Exam GI & Abdominal Exam: Soft, Normal Bowel Sounds - Neurological Exam Neurological Exam: Alert, Awake - Skin Skin Exam: Dry, Warm Assessment and Plan (1) Diarrhea Status: Acute (2) Hyperkalemia Status: Acute (3) Metabolic acidosis Status: Acute (4) Renal failure Status: Acute (5) Coronary artery disease Status: Chronic - Assessment and Plan (Free Text) Plan: continue Cipro, monitor lytes and renal function, nephrology follow-uo DR. Helms
[2017-01-02 10:19] LABS: BASO # 0.03 K/mm3 (0.0-2.0); BASO % 0.2 % (0.0-3.0); EOS # 0.9 (0.0-0.7); EOS % 5.4 % (1.5-5.0); GRAN # 12.63 (1.4-6.5); GRAN % 78.5 % (50.0-68.0); HEMATOCRIT 43.2 % (42.0-52.0); LYMPH # 1.4 (1.2-3.4); LYMPH % 8.7 % (22.0-35.0); MEAN CELL VOLUME 89.4 fl (80.0-105.0); MEAN CORPUSCULAR HEMOGLOBIN 30.2 pg (25.0-35.0); MEAN CORPUSCULAR HGB CONC 33.8 g/dl (31.0-37.0); MONO # 1.2 (0.1-0.6); MONO % 7.2 % (1.0-6.0); RED CELL DISTRIBUTION WIDTH 13.8 % (11.5-14.5); WHITE BLOOD COUNT 16.1 10^3/ul (4.5-11.0)
[2017-01-02 10:31] LABS: ALB/GLOB RATIO 0.9 (1.1-1.8); BILIRUBIN,TOTAL 0.9 mg/dL (0.2-1.3); CALCIUM 7.8 mg/dL (8.4-10.5); POTASSIUM 4.9 mmol/L (3.6-5.0); TOTAL PROTEIN 7.2 g/dL (5.8-8.3)
--- NOTE | 2017-01-03 04:07 | CON ---
DATE: 01/02/2017 TYPE OF DICTATION: A consult for the cardiology division. REASON FOR CONSULTATION: Cardiac evaluation, history of cardiomyopathy, coronary artery disease, status post nine beats of VT, admitted with diarrhea, acute renal failure. BRIEF CLINICAL HISTORY: This is a 61-year-old male with a past medical history significant for coronary artery disease, history of PTCA; history of cardiomyopathy, status post AICD; admitted with 5 days of excessive diarrhea, acute renal failure, creatinine 5. Yesterday, the patient was on telemetry, having nine beats of VT, so cardiology consult was called. The patient denies any chest pain, shortness of breath, or any palpitation. PAST HISTORY: Significant for coronary artery disease, status post anterior descending artery PTCA at [facility], being followed by Dr. Wright, cardiomyopathy, history of AICD, history of DVT, history of mental retardation; history of CKD, baseline creatinine 2; admitted with acute kidney injury. ALLERGIES: NO KNOWN DRUG ALLERGY. SOCIAL HISTORY: Lives in a [facility], history of tobacco abuse and alcohol abuse in the past. CURRENT MEDICATIONS: The patient is taking glyburide, Flomax, sodium, Lasix, Flomax, sodium bicarbonate tablet, omeprazole, levothyroxine, Lasix, enalapril, clopidogrel, carvedilol, Rocaltrol, and aspirin. Previous cardiac workup as follows: The patient is being followed at [facility] by Dr. Wright, history of chronic renal insufficiency, history of a stent in LAD 08/24/2013, status post AICD at [facility]. Most recently, the patient had echocardiography at last admission at [facility] dated 08/14/2016, that shows a four-chambered view with RV ejection fraction 25% to 30%, mild MR, moderate TR with systolic pressure of 48, no pericardial effusion, trace aortic regurgitation, trace PI and no thrombus noted. REVIEW OF SYSTEMS: As per HPI. PHYSICAL EXAMINATION: VITAL SIGNS: Temperature afebrile, heart rate 89, blood pressure 133/93. HEENT: PERRLA intact. NECK: Supple. No carotid bruits or thyromegaly. CHEST: Clear to auscultation. HEART: S1 and S2, regular. ABDOMEN: Soft. EXTREMITIES: Clubbing and cyanosis negative. LABORATORY DATA: Blood workup as follows; WBC is 16.0, hemoglobin 14, hematocrit 43.2, platelet count 323. Chemistry shows sodium 142, potassium 4.9, chloride 101, CO2 of 18, anion gap of 16, BUN 60, creatinine 3.4. IMPRESSION: Five beats of ventricular tachycardia, hemodynamic count is stable, diabetes, hypertension, hyperlipidemia, cardiomyopathy here, ejection fraction 25% to 30%, mild mitral regurgitation, mild tricuspid regurgitation, acute renal failure on chronic kidney disease, baseline creatinine x2, admitted with creatinine 5, and hyperkalemia of 6.4, which is improving. RECOMMENDATIONS: Monitor electrolytes, magnesium level and phosphate level in the morning. Continue aspirin, continue Coreg, continue Lipitor, continue gentle hydration. We will receive blood workup tomorrow and monitor. The patient is hemodynamically stable with only five beats of VT, he does not need any further invasive workup at this time. We will follow with you. Thank you Dr. Meyer for providing us the opportunity in taking care of Shanell Morales. We will follow with you. Ayad Pineda MD
[2017-01-03] MEDS: Pantoprazole 40 mg EC Tab PO SCH (06:17)
[2017-01-03] MEDS: Levothyroxine 125 MCG TAB PO SCH (06:17)
[2017-01-03 08:03] LABS: BASO # 0.03 K/mm3 (0.0-2.0); BASO % 0.2 % (0.0-3.0); EOS % 6.5 % (1.5-5.0); GRAN # 11.56 (1.4-6.5); GRAN % 74.8 % (50.0-68.0); HEMATOCRIT 41.4 % (42.0-52.0); LYMPH # 1.5 (1.2-3.4); LYMPH % 9.5 % (22.0-35.0); MEAN CORPUSCULAR HEMOGLOBIN 30.3 pg (25.0-35.0); MEAN CORPUSCULAR HGB CONC 34.1 g/dl (31.0-37.0); MONO # 1.4 (0.1-0.6); RED CELL DISTRIBUTION WIDTH 13.8 % (11.5-14.5); WHITE BLOOD COUNT 15.5 10^3/ul (4.5-11.0)
[2017-01-03 08:17] LABS: ALB/GLOB RATIO 0.9 (1.1-1.8); BILIRUBIN,TOTAL 1.1 mg/dL (0.2-1.3); MAGNESIUM 1.4 mg/dL (1.7-2.2); PHOSPHOROUS 3.3 mg/dL (2.5-4.5); POTASSIUM 4.7 mmol/L (3.6-5.0); TOTAL PROTEIN 7.2 g/dL (5.8-8.3)
[2017-01-03] MEDS: Insulin Reg-LOW-Coverage SC SCH ×4 (08:42→21:37)
--- NOTE | 2017-01-03 10:25 | PN ---
DATE: 01/02/2017 SUBJECTIVE: The patient is seen sitting in bed. He is awake, he is alert. He denies any further diarrhea. He denies any abdominal pain. He denies any shortness of breath. He denies any nausea. PHYSICAL EXAMINATION GENERAL: Obese elderly male sitting in bed. VITAL SIGNS: Blood pressure 116/72, heart rate 86, respiratory rate 20, temperature 97. HEENT: Normocephalic and atraumatic. NECK: Supple, no JVD. LUNGS: Bilateral equal air entry, no rales. CARDIAC: S1 and S2. Regular rate and rhythm, no murmur, no rub. ABDOMEN: Obese, distended, soft, nontender, bowel sounds present. EXTREMITIES: No lower extremity edema. Intake and output 1620/850. LABORATORY DATA: WBC 16, hemoglobin 14.6, hematocrit 43, platelets 323. Sodium 140, potassium 4.9, chloride 111, CO2 18, BUN 68, creatinine 3.4, glucose 112, calcium 7.8, AST 18, ALT 15, albumin 3.5. MEDICATIONS: Aspirin, Coreg, Flomax, insulin, Micronase, Plavix, Protonix, sodium bicarbonate and Synthroid. ASSESSMENT: 1. Acute kidney injury superimposed on chronic kidney disease stage IV, resolving. 2. Dehydration secondary to diarrhea. 3. Resolved hyperkalemia. 4. Non-anion gap metabolic acidosis. 5. Nvw-lupnssd-hwhawqnkq diabetes mellitus. 6. Hypertension. 7. Clostridium difficile negative. PLAN: 1. Push p.o. fluids. 2. No indication for IV fluids anymore. Discontinue IV fluids in a.m. 3. Antibiotics as per ID recommendations. 4. Monitor fingersticks. 5. Monitor urine output. Kaity Helms MD
[2017-01-03] MEDS ORDERED: Sodium Chloride 0.9% 1,000 ML IV SCH (12:30)
--- NOTE | 2017-01-03 15:30 | CP.PCM.PN ---
Subjective - Date & Time of Evaluation Date of Evaluation: 01/03/17 Time of Evaluation: 09:15 - Subjective Subjective: no diarrhea, c/o pain in feet and knees L>R, no chest pain, no SOB Objective - Vital Signs/Intake and Output Vital Signs (last 24 hours): Temp Pulse Resp BP Pulse Ox 98.3 F 87 20 118/79 97 01/03/17 12:00 01/03/17 12:00 01/03/17 12:00 01/03/17 12:00 01/03/17 00:01 Intake and Output: 01/03/17 01/03/17 06:59 18:59 Intake Total 280 Output Total 600 Balance -320 - Medications Medications: Current Medications Aspirin (Aspirin Chewable) 81 mg PO DAILY [facility] Last Admin: 01/03/17 09:49 Dose: 81 mg Carvedilol (Coreg) 25 mg PO BID [facility] Last Admin: 01/03/17 09:49 Dose: 25 mg Clopidogrel Bisulfate (Plavix) 75 mg PO DAILY [facility] Last Admin: 01/03/17 09:49 Dose: 75 mg Glyburide (Micronase) 5 mg PO 0800 [facility] Last Admin: 01/03/17 09:49 Dose: 5 mg Sodium Chloride (Sodium Chloride 0.9%) 1,000 mls @ 100 mls/hr IV .Q10H [facility] Last Admin: 01/03/17 12:36 Dose: 100 mls/hr Insulin Human Regular (Humulin R Low) 1 units SC ACHS [facility] PRN Reason: Protocol Last Admin: 01/03/17 12:36 Dose: 1 units Levothyroxine Sodium (Synthroid) 125 mcg PO 0600 [facility] Last Admin: 01/03/17 06:17 Dose: 125 mcg Pantoprazole Sodium (Protonix Ec Tab) 40 mg PO 0600 [facility] Last Admin: 01/03/17 06:17 Dose: 40 mg Sodium Bicarbonate (Sodium Bicarbonate Tab) 650 mg PO DAILY [facility] Last Admin: 01/03/17 09:49 Dose: 650 mg Tamsulosin HCl (Flomax) 0.4 mg PO DAILY [facility] Last Admin: 01/03/17 09:49 Dose: 0.4 mg Tramadol HCl (Ultram) 50 mg PO BID PRN PRN Reason: Pain, moderate (4-7) Last Admin: 01/03/17 12:35 Dose: 50 mg - Labs Labs: 01/03/17 07:40 01/03/17 07:40 PT 10.6 Seconds (9.9-11.8) 12/31/16 08:59 INR 0.98 (0.93-1.08) 12/31/16 08:59 APTT 30.1 Seconds (23.7-30.8) 12/31/16 08:59 - Respiratory Exam Respiratory Exam: Clear to Ausculation Bilateral, NORMAL BREATHING PATTERN - Cardiovascular Exam Cardiovascular Exam: REGULAR RHYTHM - GI/Abdominal Exam GI & Abdominal Exam: Soft, Normal Bowel Sounds - Extremities Exam Extremities Exam: Normal Inspection Additional comments: slightly diminished dorsalis pedis and post. tibial pulses bilat - Neurological Exam Neurological Exam: Alert, Awake - Skin Skin Exam: Dry, Warm Additional comments: chronic degenerative skin changes of ankles bilaterally Assessment and Plan (1) Diarrhea Status: Acute (2) Hyperkalemia Status: Acute (3) Metabolic acidosis Status: Acute (4) Renal failure Status: Acute (5) Coronary artery disease Status: Chronic (6) Pain, lower leg Status: Acute - Assessment and Plan (Free Text) Plan: continue PO Cipro, monitor lytes and renal function, nephrology follow-up Dr. Helms appreciated, check arterial duples of lower extremities, Tramadol 50mg bid PRN pain, physical therapy and social work for discharge planning
[2017-01-03] MEDS ORDERED: Amiodarone 150 mg/D5W 100 ml 150 MG/100 ML BAG IVPB ONE (16:26)
[2017-01-03] MEDS ORDERED: Magnesium Sulfate 1 gm in D5W 1 GM/100 ML BAG IVPB ONE (17:32)
--- NOTE | 2017-01-03 17:58 | US ---
PROCEDURE: Lower extremity CLIVE exam HISTORY: Peripheral vascular disease with pain and claudication. Diabetes. PHYSICIAN(S): Merlin Nagy MD. FINDINGS: The exam is limited by calcified vessels. The resting CLIVE's are abnormally elevated: Right, 1.39 and left, 1.81 The brachial systolic pressures are symmetric. The high thigh pressures are noncompressible. The high thigh PVR waveforms are normal and symmetric The calf PVR waveforms augment normally. The calf PVR waveforms are normal and symmetric The ankle and metatarsal waveforms are relatively normal and symmetric. IMPRESSION: 1. The PVR waveforms are relatively normal and symmetric at all levels. 2. The exam is limited by calcified, noncompressible vessels.
--- NOTE | 2017-01-03 20:17 | PN ---
DATE: 01/03/2017 SUBJECTIVE: The patient is seen sitting in chair. He is awake, he is alert. He denies any abdominal pain at present, he denies any diarrhea. PHYSICAL EXAMINATION: GENERAL: Elderly male, lying in bed. VITAL SIGNS: Blood pressure 118/79, heart rate 87, respiratory rate 20, temperature 98.3. HEENT: Normocephalic, atraumatic. NECK: Supple, no JVD. LUNGS: Bilateral equal entry rales. CARDIAC: S1 and S2, regular rate and rhythm. No murmur, no rub. ABDOMEN: Obese, distended, soft, nontender, bowel sounds present. EXTREMITIES: No lower extremity edema. INTAKE AND OUTPUT 1900/1450. LABORATORY DATA: WBC 15.5, hemoglobin 14.1, hematocrit 41, platelets 324. Sodium 140, potassium 4.7, chloride 110, CO2 of 20, BUN 54, creatinine 3.3, glucose 91, calcium 8.0, phosphorus 3.3, magnesium 1.4, A1c 8.0, albumin 3.5. CURRENT MEDICATIONS: Aspirin, Cordarone, Coreg, Flomax, Micronase, Plavix, Protonix, sodium bicarbonate, normal saline at 100, Synthroid, and Ultram. ASSESSMENT: 1. Resolving acute kidney injury. 2. Hypomagnesemia. 3. Resolving diarrhea. 4. Underlying chronic kidney disease stage IV. 5. Lxe-xxnlfwn-jyeepkeut diabetes mellitus. 6. Hypertension. 7. Coronary artery disease. PLAN: 1. Discontinue IV fluids. 2. Push p.o. intake. 3. Replace magnesium. 4. Continue synthetic antibiotics. 5. Monitor electrolytes. Kaity Helms MD
--- NOTE | 2017-01-03 20:53 | PN ---
DATE: 01/03/2017 REASON FOR CONSULTATION AND FOLLOWUP: VT off and on, 8 to 9 beats; history of cardiomyopathy, cardiac evaluation, admitted with diarrhea and acute renal failure. SUBJECTIVE: The patient denies any chest pain, shortness of breath, or any palpitation. OBJECTIVE: GENERAL: Lying flat on the bed, not in apparent distress. VITAL SIGNS: As follows: Temperature afebrile, heart rate 87, and blood pressure 118/79. HEENT: PERRLA. Extraocular muscles are intact. NECK: Supple. No carotid bruits. No thyromegaly. CHEST: Clear to auscultation. HEART: S1 and S2 regular. ABDOMEN: Soft. EXTREMITIES: Clubbing and cyanosis negative. LABORATORY DATA: Blood workup as follows; WBC 15.5, hemoglobin 14, hematocrit 41.4, and platelet count 324. Chemistry shows sodium of 140, potassium 4.6, chloride 110, carbon dioxide 20, anion gap of 15, BUN 54, and creatinine 3.3. TSH 0.23, triglycerides 273, cholesterol 181, HDL 24. AST 18, ALT 58. IMPRESSION: A 61-year-old male with past medical history significant for coronary artery disease, status post percutaneous coronary intervention; cardiomyopathy, status post automated implantable cardioverter defibrillator; chronic renal insufficiency, baseline creatinine 2; diabetes; hypertension; hyperlipidemia, being followed by Dr. Wright, the sap specialist from [facility]; history of chronic renal insufficiency, status post percutaneous transluminal coronary angioplasty stent in 08/24/2013, admitted with diarrhea. Last echo in [facility] dated 08/14/2016 showed 4-chamber dilatation, ejection fraction 25 to 30%, mild mitral regurgitation, moderate tricuspid regurgitation, systolic right ventricular 48, no pericardial effusion, trace aortic insufficiency, trace aortic regurgitation. Telemetry shows 8 to 10 beats of ventricular tachycardia, cardiology consult was called. The patient is not on amiodarone. On IV fluids, creatinine has been improving. RECOMMENDATION: We will start IV piggyback amiodarone and load with 400 mg p.o. t.i.d. for 2 days followed by 200 mg daily. Continue IV hydration. Monitor electrolytes. Monitor laboratories. We will get the TSH level. TSH level is 0.24. We will monitor periodically while the patient is on amiodarone. We will follow with you. We will get SMA-7, mag tomorrow. Thank you Dr. Meyer for providing us the opportunity in taking care of the patient. Ayad Pineda MD
[2017-01-04] MEDS: Pantoprazole 40 mg EC Tab PO SCH (05:45)
[2017-01-04] MEDS: Levothyroxine 125 MCG TAB PO SCH (05:45)
[2017-01-04 06:37] LABS: BASO # 0.02 K/mm3 (0.0-2.0); BASO % 0.1 % (0.0-3.0); EOS # 0.9 (0.0-0.7); GRAN # 11.39 (1.4-6.5); GRAN % 73.6 % (50.0-68.0); HEMATOCRIT 40.1 % (42.0-52.0); LYMPH # 1.7 (1.2-3.4); LYMPH % 10.9 % (22.0-35.0); MEAN CELL VOLUME 89.3 fl (80.0-105.0); MEAN CORPUSCULAR HEMOGLOBIN 29.8 pg (25.0-35.0); MEAN CORPUSCULAR HGB CONC 33.4 g/dl (31.0-37.0); MEAN PLATELET VOLUME 10.2 fl (7.0-11.0); MONO # 1.5 (0.1-0.6); MONO % 9.4 % (1.0-6.0); WHITE BLOOD COUNT 15.5 10^3/ul (4.5-11.0)
[2017-01-04 07:04] LABS: ALB/GLOB RATIO 0.9 (1.1-1.8); BILIRUBIN,TOTAL 0.8 mg/dL (0.2-1.3); CALCIUM 8.2 mg/dL (8.4-10.5); MAGNESIUM 1.8 mg/dL (1.7-2.2); PHOSPHOROUS 4.4 mg/dL (2.5-4.5); POTASSIUM 4.6 mmol/L (3.6-5.0); TOTAL PROTEIN 7.1 g/dL (5.8-8.3)
[2017-01-04] MEDS: Insulin Reg-LOW-Coverage SC SCH ×4 (08:28→22:57)
--- NOTE | 2017-01-04 13:04 | CP.PCM.PN ---
Subjective - Date & Time of Evaluation Date of Evaluation: 01/04/17 Time of Evaluation: 09:15 - Subjective Subjective: c/o knee pain, L>R, no diarrhea, no chest pain, no SOB, had short run of non- sustained vtach, started on amiodarone by cardiology Objective - Vital Signs/Intake and Output Vital Signs (last 24 hours): Temp Pulse Resp BP Pulse Ox 98.1 F 82 20 112/70 91 L 01/04/17 12:00 01/04/17 12:00 01/04/17 12:00 01/04/17 12:00 01/04/17 06:00 Intake and Output: 01/04/17 01/04/17 06:59 18:59 Intake Total 720 Output Total 775 Balance -55 - Medications Medications: Current Medications Amiodarone HCl (Cordarone) 400 mg PO TID [facility] Stop: 01/04/17 23:59 Last Admin: 01/04/17 10:36 Dose: 400 mg Amiodarone HCl (Cordarone) 200 mg PO DAILY [facility] Aspirin (Aspirin Chewable) 81 mg PO DAILY [facility] Last Admin: 01/04/17 10:36 Dose: 81 mg Carvedilol (Coreg) 25 mg PO BID [facility] Last Admin: 01/04/17 10:36 Dose: 25 mg Clopidogrel Bisulfate (Plavix) 75 mg PO DAILY [facility] Last Admin: 01/04/17 10:36 Dose: 75 mg Glyburide (Micronase) 5 mg PO 0800 [facility] Last Admin: 01/04/17 08:30 Dose: 5 mg Insulin Human Regular (Humulin R Low) 1 units SC ACHS [facility] PRN Reason: Protocol Last Admin: 01/04/17 12:18 Dose: 1 units Levothyroxine Sodium (Synthroid) 125 mcg PO 0600 [facility] Last Admin: 01/04/17 05:45 Dose: 125 mcg Pantoprazole Sodium (Protonix Ec Tab) 40 mg PO 0600 [facility] Last Admin: 01/04/17 05:45 Dose: 40 mg Sodium Bicarbonate (Sodium Bicarbonate Tab) 650 mg PO DAILY [facility] Last Admin: 01/04/17 10:36 Dose: 650 mg Tamsulosin HCl (Flomax) 0.4 mg PO DAILY [facility] Last Admin: 01/04/17 10:36 Dose: 0.4 mg Tramadol HCl (Ultram) 50 mg PO BID PRN PRN Reason: Pain, moderate (4-7) Last Admin: 01/04/17 10:41 Dose: 50 mg - Labs Labs: 01/04/17 06:28 01/04/17 06:28 PT 10.6 Seconds (9.9-11.8) 12/31/16 08:59 INR 0.98 (0.93-1.08) 12/31/16 08:59 APTT 30.1 Seconds (23.7-30.8) 12/31/16 08:59 - Respiratory Exam Respiratory Exam: Clear to Ausculation Bilateral, NORMAL BREATHING PATTERN - Cardiovascular Exam Cardiovascular Exam: REGULAR RHYTHM - GI/Abdominal Exam GI & Abdominal Exam: Soft, Normal Bowel Sounds - Extremities Exam Additional comments: some pain on flexion L knee, no swelling, no erythema - Neurological Exam Neurological Exam: Alert, Awake - Skin Skin Exam: Dry, Warm Assessment and Plan (1) Diarrhea Status: Acute (2) Hyperkalemia Status: Acute (3) Metabolic acidosis Status: Acute (4) Renal failure Status: Acute (5) Coronary artery disease Status: Chronic (6) Pain, lower leg Status: Acute (7) Non-sustained ventricular tachycardia Status: Acute - Assessment and Plan (Free Text) Plan: continue cardiology follow-up, monitoring on telemetry, monitor lytes and renal function, nephrology follow-up, check xray knees, physical therapy and social work for discharge planning
--- NOTE | 2017-01-04 14:37 | RAD ---
PROCEDURE: Bilateral Knee Radiographs. HISTORY: knee pain COMPARISON: None. FINDINGS: BONES: Right Knee: Normal. No fracture. Left Knee: Normal. No fracture. JOINTS: Right Knee: Normal. No osteoarthritis. Left knee: Normal. No osteoarthritis. SOFT TISSUES: Right Knee: Normal. Left Knee: Normal. JOINT EFFUSION: Right Knee: None. Left Knee: None. OTHER FINDINGS: None. IMPRESSION: Normal radiographs of the knees.
--- NOTE | 2017-01-04 15:54 | PN ---
DATE: 01/04/2017 REASON FOR CONSULTATION AND FOLLOWUP: 5-6 beat of VT, cardiomyopathy, cardiac evaluation, admitted with diarrhea and acute renal failure. SUBJECTIVE: The patient denied any chest pain, shortness of breath, or any palpitation. OBJECTIVE: GENERAL: Not in any apparent distress, lying flat in the bed. VITAL SIGNS: As follows: Temperature afebrile, heart rate 92, blood pressure . HEENT: PERRLA. Extraocular muscles intact. NECK: Supple. No carotid bruits or thyromegaly. CHEST: Clear to auscultation. HEART: S1 and S2 regular. ABDOMEN: Soft. EXTREMITIES: Clubbing and cyanosis negative. LABORATORY DATA: Blood workup as follows: WBC 15.5, hemoglobin 13.4, hematocrit 40.1, platelet count 346. Chemistry: Shows sodium 140, potassium 4.6, chloride , carbon dioxide 18, anion gap of 17, BUN 51, creatinine 3.4. IMPRESSION: Diarrhea, acute kidney injury on chronic renal insufficiency, diabetes, hypertension, hyperlipidemia, cardiomyopathy, multiple ventricular tachycardia 8 to 10 beats, completely resolved after starting IV amiodarone in the last 24 hours. No further episode of arrhythmia noted. RECOMMENDATIONS: Continue amiodarone 200 mg daily. Continue Coreg. Supplement electrolyte as needed. Today magnesium is 1.8. We will follow with you. Repeat electrolytes in the morning. Thank you Dr. Meyer for providing us the opportunity in taking care of the patient, Andrew Reece. Ayad Pineda MD
--- NOTE | 2017-01-04 22:40 | PN ---
SUBJECTIVE: The patient is currently seen on telemetry. He appears entirely comfortable, sitting in a chair, IV fluids have been discontinued. He is not complaining of any abdominal pain or diarrhea. His BUN and creatinine are slowly falling back to baseline levels. MEDICATIONS: Medication list reviewed. The patient is currently on aspirin, amiodarone, Coreg, Flomax, insulin, Micronase, Plavix, Protonix, sodium bicarbonate, Synthroid and Ultram. OBJECTIVE: INTAKE/OUTPUT: Intake of 740, output 500. VITAL SIGNS: Blood pressure 118/74, temperature 97.3. Respiratory rate is 19 with a pulse ox of 92%. HEENT: Normocephalic, atraumatic. Conjunctivae are pink. Sclerae nonicteric. NECK: Supple. No neck vein distention. LUNGS: Chest clear to auscultation and percussion. No rales or rhonchi. No wheezing. CARDIOVASCULAR: S1, S2 were normal. MR. No S3. No S1. No rub. ABDOMEN: Soft. Mild obesity. Bowel sounds normal. No rebound or guarding. No masses. EXTREMITIES: Stasis dermatitis of his lower extremity bilaterally. No pitting edema. Distal lower extremity pulses are 1 to 2 plus. LABORATORY DATA AND IMAGING: CBC: White blood cell count today 15.5, hemoglobin 13.4, platelet count 346,000. Chemistry shows sodium 140, potassium 4.6, chloride 110 with a CO2 of 18, BUN 51 with a creatinine of 3.4. His BUN is down from a high at 103. Baseline BUN is in the upper 30, low 40 range. Creatinine is 3.4 down from a high of 5.0. Baseline creatinine is in the upper 2 to low 3 range. Glucose is 119. Calcium 8.2, phosphorus 4.4, magnesium 1.8. ASSESSMENT: 1. Prerenal failure superimposed on chronic kidney disease stage IV. The patient has non nephrotic range proteinuria and a creatinine clearance of 25 mL per minute dating back to 07/2016. He had a 874 mg of protein in the urine. The patient had diarrhea and abdominal pain on admission. With resolution of his GI losses and IV fluid hydration, his BUN and creatinine are slowly falling back to baseline levels. 2. Status post diarrhea. 3. History of noninsulin-dependent diabetes mellitus. The patient's glucose control is acceptable. 4. History of hypertension. Blood pressure controlled on present medical therapy. 5. History of atherosclerotic heart disease status post automatic implantable cardioverter-defibrillator of mitral regurgitation. This appears to be stable. 6. History of hypothyroidism. The patient continues on thyroid replacement therapy. PLAN: 1. Continue to monitor the patient on telemetry in light of his history of ASHD with AICD. 2. Continue to monitor labs on a daily basis. 3. Continue the patient off of diuretics at this point in time until his BUN and creatinine return to normal. Given his history of stasis dermatitis and lower extremity edema, he will likely need diuretic therapy in the outpatient setting to prevent edema. 4. Continue to monitor accurate Is and Os and daily weights. Rom Winston MD
[2017-01-05] MEDS: Pantoprazole 40 mg EC Tab PO SCH (05:41)
[2017-01-05] MEDS: Levothyroxine 125 MCG TAB PO SCH (05:41)
[2017-01-05 06:42] LABS: HEMATOCRIT 42.6 % (42.0-52.0); MEAN CELL VOLUME 88.8 fl (80.0-105.0); MEAN CORPUSCULAR HGB CONC 33.8 g/dl (31.0-37.0); MEAN PLATELET VOLUME 10.6 fl (7.0-11.0); WHITE BLOOD COUNT 19.1 10^3/ul (4.5-11.0)
[2017-01-05 07:57] LABS: ALB/GLOB RATIO 0.9 (1.1-1.8); BILIRUBIN,TOTAL 1.3 mg/dL (0.2-1.3); CALCIUM 8.4 mg/dL (8.4-10.5); MAGNESIUM 1.8 mg/dL (1.7-2.2); PHOSPHOROUS 4.4 mg/dL (2.5-4.5); POTASSIUM 5.2 mmol/L (3.6-5.0); TOTAL PROTEIN 7.2 g/dL (5.8-8.3)
[2017-01-05] MEDS: Insulin Reg-LOW-Coverage SC SCH ×4 (08:01→21:48)
--- NOTE | 2017-01-05 09:30 | CP.PCM.PN ---
Subjective - Date & Time of Evaluation Date of Evaluation: 01/05/17 Time of Evaluation: 08:45 - Subjective Subjective: NAD, no diarrhea, no chest pain , no SOB Objective - Vital Signs/Intake and Output Vital Signs (last 24 hours): Temp Pulse Resp BP Pulse Ox 98.5 F 88 18 121/74 90 L 01/05/17 06:00 01/05/17 09:21 01/05/17 06:00 01/05/17 09:21 01/05/17 06:00 Intake and Output: 01/05/17 01/05/17 06:59 18:59 Intake Total 260 Balance 260 - Medications Medications: Current Medications Amiodarone HCl (Cordarone) 200 mg PO DAILY [facility] Last Admin: 01/05/17 09:21 Dose: 200 mg Aspirin (Aspirin Chewable) 81 mg PO DAILY [facility] Last Admin: 01/05/17 09:21 Dose: 81 mg Carvedilol (Coreg) 25 mg PO BID [facility] Last Admin: 01/05/17 09:21 Dose: 25 mg Clopidogrel Bisulfate (Plavix) 75 mg PO DAILY [facility] Last Admin: 01/05/17 09:21 Dose: 75 mg Glyburide (Micronase) 5 mg PO 0800 [facility] Last Admin: 01/05/17 08:11 Dose: 5 mg Insulin Human Regular (Humulin R Low) [address] [facility] PRN Reason: Protocol Last Admin: 01/05/17 08:01 Dose: Not Given Levothyroxine Sodium (Synthroid) 125 mcg PO 0600 [facility] Last Admin: 01/05/17 05:41 Dose: 125 mcg Pantoprazole Sodium (Protonix Ec Tab) 40 mg PO 0600 [facility] Last Admin: 01/05/17 05:41 Dose: 40 mg Sodium Bicarbonate (Sodium Bicarbonate Tab) 650 mg PO BID [facility] Last Admin: 01/05/17 09:21 Dose: 650 mg Tamsulosin HCl (Flomax) 0.4 mg PO DAILY [facility] Last Admin: 01/05/17 09:21 Dose: 0.4 mg Tramadol HCl (Ultram) 50 mg PO BID PRN PRN Reason: Pain, moderate (4-7) Last Admin: 01/04/17 10:41 Dose: 50 mg - Labs Labs: 01/05/17 06:00 01/05/17 06:00 PT 10.6 Seconds (9.9-11.8) 10/13/17 08:59 INR 0.98 (0.93-1.08) 12/31/16 08:59 APTT 30.1 Seconds (23.7-30.8) 12/31/16 08:59 - Respiratory Exam Respiratory Exam: Clear to Ausculation Bilateral, NORMAL BREATHING PATTERN - Cardiovascular Exam Cardiovascular Exam: REGULAR RHYTHM - GI/Abdominal Exam GI & Abdominal Exam: Soft - Neurological Exam Neurological Exam: Alert, Awake - Skin Skin Exam: Dry, Warm Assessment and Plan (1) Diarrhea Status: Resolved (2) Hyperkalemia Status: Acute (3) Metabolic acidosis Status: Acute (4) Renal failure Status: Acute (5) Coronary artery disease Status: Chronic (6) Pain, lower leg Status: Acute (7) Non-sustained ventricular tachycardia Status: Acute (8) Leukocytosis Status: Acute - Assessment and Plan (Free Text) Plan: check stool Cdiff , monitor lytes, renal function, no clinical evidence of sepsis
--- NOTE | 2017-01-05 13:56 | US ---
HISTORY: Leg pain and swelling. Evaluate for DVT PHYSICIAN(S): Merlin Nagy MD. TECHNIQUE: Duplex sonography and color-flow Doppler with graded compression were used to evaluate the deep venous systems of both lower extremities. FINDINGS: The visualized deep venous systems of both lower extremities are sonographically normal and compressible. Normal wave forms and augmentation are seen. There is no sonographic evidence for deep venous thrombosis in the visualized segments of both lower extremities. IMPRESSION: No sonographic evidence for deep venous thrombosis in the visualized segments of both lower extremities.
--- NOTE | 2017-01-05 14:38 | PN ---
DATE: 01/05/2017 SUBJECTIVE: The patient is seen lying in bed. He is awake, he is alert, and he is comfortable. He denies any abdominal pain, nausea, or vomiting. PHYSICAL EXAMINATION GENERAL: Elderly male lying in bed. VITAL SIGNS: Blood pressure of 121/77, heart rate of 88, respiratory rate of 20, and temperature of 98.1. HEENT: Normocephalic and atraumatic. NECK: Supple and no JVD. LUNGS: Bilateral equal air entry. No rales and no rhonchi. CARDIAC: S1 and S2, regular rate and rhythm. No murmur and no rub. ABDOMEN: Obese, distended, soft, and nontender. Bowel sounds present. EXTREMITIES: No lower extremity edema. INTAKE AND OUTPUT: 740/500. LABORATORY DATA: WBC of 19, hemoglobin of 14, hematocrit of 43, and platelets of 369. Sodium of 137, potassium of 5.2, chloride of 110, CO2 of 14, BUN of 59, and creatinine of 0.6. Glucose of 151, calcium of 8.4, phosphorus of 4.4, and magnesium of 1.8. BNP of 17,000 and albumin of 3.4. CURRENT MEDICATIONS: Aspirin, Cordarone, Coreg, Flomax, insulin, Micronase, Plavix, Protonix, sodium bicarbonate 650 b.i.d., Synthroid, and tramadol. ASSESSMENT AND PLAN: 1. Status post diary Clostridium difficile colitis. 2. Now with rising white blood cell count again. 3. Acute kidney injury, superimposed on chronic kidney disease stage IV. 4. Hyperkalemia. 5. Tau-qqcsizr-pgpeffmil diabetes mellitus. 6. Hypertension. 7. C coronary artery disease and congestive heart failure. PLAN 1. Agree with Lasix. 2. Start Lasix p.o. daily. 3. Panculture again? 4. ID evaluation. 5. Continue fingerstick monitoring. 6. Continue antihypertensives Kaity Helms MD
[2017-01-05] MEDS ORDERED: Bupivacaine 0.5% Inj(30mL) IJ ONE (16:14)
[2017-01-05] MEDS ORDERED: MethylPREDNISolone Depo 40 mg/ml Inj IM ONE (16:14)
[2017-01-05 16:26] LABS: BODY FLUID TYPE PLEURAL
[2017-01-05 16:57] LABS: BF GROSS APPEARANCE TURBID (CLEAR)
[2017-01-05 16:58] LABS: BODY FLUID TOTAL COUNT 100 (0-0)
--- NOTE | 2017-01-05 22:32 | CON ---
ORTHOPEDIC CONSULT AND PROCEDURE DATE: 01/05/2017 HISTORY OF PRESENT ILLNESS: The patient is a 61-year-old male with an effusion of his left knee along with pain, this never happened before. He has good range of motion. No deficits of extension. No apparent rupture of extensive mechanism. X-rays show effusion of the left knee compared to the right and no severe osteoarthritis. So, we told him about the arthrocentesis, which we did and he agree to that. We aspirated 50 mL of turbid fluid not purulent. We are going to send it to the lab for cultures, crystals and cell count in special tubes and then we aspirated the knee with 20 mL of saline and evacuated that and gave injection of Depo-Medrol and Marcaine for pain relief and decreased inflammation. Hopefully, the patient will feel better, it looks like an inflammatory arthritis of his left knee. We will wait for the culture to come back and the crystal analysis to come back and the cell count to come back. Everardo Castro DO
[2017-01-06] MEDS: Pantoprazole 40 mg EC Tab PO SCH (05:16)
[2017-01-06] MEDS: Levothyroxine 125 MCG TAB PO SCH (05:16)
[2017-01-06 06:58] LABS: HEMATOCRIT 41.3 % (42.0-52.0); MEAN CELL VOLUME 87.9 fl (80.0-105.0); MEAN CORPUSCULAR HGB CONC 34.1 g/dl (31.0-37.0); MEAN PLATELET VOLUME 10.7 fl (7.0-11.0); RED CELL DISTRIBUTION WIDTH 13.8 % (11.5-14.5); WHITE BLOOD COUNT 17.1 10^3/ul (4.5-11.0)
--- NOTE | 2017-01-06 06:59 | PN ---
DATE: 01/05/2017 ATTENDING PHYSICIAN: Ayad Pineda MD REASON FOR THE CONSULTATION: Followup, 6-beat VT, cardiomyopathy, cardiac evaluation, admitted with acute renal failure secondary to diarrhea, electrolyte imbalance. SUBJECTIVE: The patient denies any chest pain, shortness of breath, any palpitation. Lying flat on bed. PHYSICAL EXAMINATION: GENERAL: Not in apparent distress, lying flat on the bed, awaiting for the breakfast. VITAL SIGNS: Temperature afebrile, heart rate 87, blood pressure 98/69. HEENT: PERRLA intact. NECK: Supple. No carotid bruits, thyromegaly. CHEST: Clear to auscultation. HEART: S1, S2 regular. ABDOMEN: Soft. EXTREMITIES: Clubbing and cyanosis negative. LABORATORY DATA: Blood workup as follows: WBC 19, hemoglobin 14.4, hematocrit 42.6, platelet count 114. Chemistry; 137 sodium, potassium 5.2, chloride 110, carbon dioxide 14, anion gap of 18, BUN 59, creatinine 3.6. BNP 17,600. IMPRESSION: Acute kidney injury on chronic renal insufficiency, diarrhea, hyperkalemia, cardiomyopathy, decreased left ventricular function, history of percutaneous transluminal coronary angioplasty of left anterior descending, being followed in the [facility] by Dr. Wright, hypertension, hyperlipidemia. Initially, the patient had 8 to 10 beats of ventricular tachycardia, which completely resolved after I started amiodarone. Status post automatic implantable cardioverter-defibrillator, cardiomyopathy, ejection fraction 25 to 30% with the last echo on 08/14/2016, 4-chamber dilatation, right ventricular systolic pressure of 48. RECOMMENDATIONS: Continue aspirin, continue heparin, continue Coreg. We will give one dose of Lasix. Discontinue telemetry, monitor electrolytes. We will repeat the blood workup in the morning. One dose of Lasix. We will correct the potassium as well. Overall, the patient's condition is critical. Long-term prognosis is guarded. We will follow with you. If he remains stable, consider discontinue telemetry. Thank you Dr. Meyer for providing us the opportunity in taking care of patient, Andrew Reece. Ayad Pineda MD [facility] # [id number]
[2017-01-06 07:25] LABS: ALB/GLOB RATIO 0.9 (1.1-1.8); BILIRUBIN,TOTAL 0.7 mg/dL (0.2-1.3); CALCIUM 8.6 mg/dL (8.4-10.5); POTASSIUM 4.7 mmol/L (3.6-5.0); TOTAL PROTEIN 7.3 g/dL (5.8-8.3)
[2017-01-06] MEDS: Insulin Reg-LOW-Coverage SC SCH ×4 (07:31→22:24)
--- NOTE | 2017-01-06 10:00 | CP.PCM.PN ---
Subjective - Date & Time of Evaluation Date of Evaluation: 01/06/17 Time of Evaluation: 09:00 - Subjective Subjective: knee pain improved s/p joint aspiration/injection by Dr. Castro, no diarrhea, no abd pain Objective - Vital Signs/Intake and Output Vital Signs (last 24 hours): Temp Pulse Resp BP Pulse Ox 97.8 F 89 21 136/88 90 L 01/06/17 05:55 01/06/17 09:00 01/06/17 05:55 01/06/17 09:00 01/06/17 05:55 Intake and Output: 01/06/17 01/06/17 06:59 18:59 Intake Total 0 Output Total 0 Balance 0 - Medications Medications: Current Medications Amiodarone HCl (Cordarone) 200 mg PO DAILY [facility] Last Admin: 01/06/17 09:00 Dose: 200 mg Aspirin (Aspirin Chewable) 81 mg PO DAILY [facility] Last Admin: 01/06/17 09:00 Dose: 81 mg Carvedilol (Coreg) 25 mg PO BID [facility] Last Admin: 01/06/17 09:00 Dose: 25 mg Clopidogrel Bisulfate (Plavix) 75 mg PO DAILY [facility] Last Admin: 01/06/17 09:00 Dose: 75 mg Furosemide (Lasix) 40 mg PO DAILY [facility] Last Admin: 01/06/17 09:00 Dose: 40 mg Glyburide (Micronase) 5 mg PO 0800 [facility] Last Admin: 01/06/17 09:00 Dose: 5 mg Insulin Human Regular (Humulin R Low) 1 units SC [facility] PRN Reason: Protocol Last Admin: 01/06/17 07:31 Dose: Not Given Levothyroxine Sodium (Synthroid) 125 mcg PO 0600 [facility] Last Admin: 01/06/17 05:16 Dose: 125 mcg Pantoprazole Sodium (Protonix Ec Tab) 40 mg PO 0600 [facility] Last Admin: 01/06/17 05:16 Dose: 40 mg Sodium Bicarbonate (Sodium Bicarbonate Tab) 650 mg PO BID [facility] Last Admin: 01/06/17 09:00 Dose: 650 mg Tamsulosin HCl (Flomax) 0.4 mg PO DAILY [facility] Last Admin: 01/06/17 09:00 Dose: 0.4 mg Tramadol HCl (Ultram) 50 mg PO BID PRN PRN Reason: Pain, moderate (4-7) Last Admin: 01/04/17 10:41 Dose: 50 mg - Labs Labs: 01/06/17 06:00 01/06/17 06:00 PT 10.6 Seconds (9.9-11.8) 12/31/16 08:59 INR 0.98 (0.93-1.08) 12/31/16 08:59 APTT 30.1 Seconds (23.7-30.8) 12/31/16 08:59 - Respiratory Exam Respiratory Exam: Clear to Ausculation Bilateral, NORMAL BREATHING PATTERN - Cardiovascular Exam Cardiovascular Exam: REGULAR RHYTHM - GI/Abdominal Exam GI & Abdominal Exam: Soft, Normal Bowel Sounds - Neurological Exam Neurological Exam: Alert, Awake Assessment and Plan (1) Diarrhea Status: Resolved (2) Hyperkalemia Status: Acute (3) Metabolic acidosis Status: Acute (4) Renal failure Status: Acute (5) Coronary artery disease Status: Chronic (6) Pain, lower leg Status: Resolved (7) Non-sustained ventricular tachycardia Status: Acute (8) Leukocytosis Status: Acute - Assessment and Plan (Free Text) Plan: venous duplex negative, arterial doppler normal, follow-up ortho, stool Cdiff pending, monitor WBC's/lytes, physical therapy, social work for discharge planning
--- NOTE | 2017-01-06 10:36 | PN ---
DATE: 01/06/2017 SUBJECTIVE: The patient had arthrocentesis done of his swollen left knee. Some of the results are back yet, the white count is under 10,000, it does not look an infection. He feels better with anti-inflammation effect of the cortisol. We are waiting for the crystal analysis to come back and cultures to come back, but it does not look like an infection; it looks more likely inflammatory arthritis, possible gout, but we will wait for the results. In the meantime, we could do some therapy to regain strength, so he does not fall and he could ambulate with a walker. Everardo Castro DO
--- NOTE | 2017-01-06 17:21 | PN ---
DATE: 01/06/2017 REASON FOR CONSULTATION AND FOLLOWUP: 6-beat of VT, cardiac evaluation, admitted with acute renal failure secondary to diarrhea, electrolyte imbalance, cardiomyopathy status post AICD. The patient denies any chest pain, shortness of breath, any palpitation. Feels a lot better, history of intra-articular injection. OBJECTIVE: GENERAL: Sitting in a chair, feels much better after an injection in the left knee. VITAL SIGNS: As follows: Temperature afebrile, heart rate 84, blood pressure 125/88. HEENT: PERRLA. Extraocular muscles intact. NECK: Supple. No carotid bruits or thyromegaly. CHEST: Clear to auscultation. HEART: S1 and S2, regular. ABDOMEN: Soft. EXTREMITIES: Clubbing and cyanosis negative. LABORATORY DATA: Blood workup as follows: WBC 17.1, hemoglobin 14.1, hematocrit 41.3, platelet count 398. Chemistry shows sodium 141, potassium 4.7, chloride 111, carbon dioxide 16, anion gap of 19, BUN 64, creatinine 3.6. Total protein 7.3, albumin 3.4, albumin-globulin ration 0.9. IMPRESSION: A 61-year-old male with past medical history significant for chronic kidney disease admitted with acute kidney injury secondary to diarrhea, hyperkalemia, cardiomyopathy, decreased left ventricular function, history of percutaneous transluminal coronary angioplasty of left anterior descending artery, being followed in the [facility] by Dr. Wright, history of hypertension, hyperlipidemia, had 10 beats of ventricular tachycardia, Cardiology consult was called. The patient was started on IV amiodarone piggyback and then started p.o. Now the patient is electrically stable. No further significant arrhythmia noted. History of automatic implantable cardioverter-defibrillator, cardiomyopathy, ejection fraction 25% to 30% in last echo on 08/12/2016, 4-chamber dilatation, right ventricular systolic pressure of 48, history of right knee intra-articular injection by Dr. Castro. Feels a lot better. RECOMMENDATIONS: Discontinue telemetry, continue aspirin, continue amiodarone p.o. 200 mg daily, continue Lasix p.o., continue Plavix, continue levothyroxine. Thank you Dr. Meyer for providing us the opportunity in taking care of the patient, Andrew Reece. We will follow with you. We will discontinue telemetry. Ayad Pineda MD cc: Dr. Meyer.
--- NOTE | 2017-01-07 05:48 | PN ---
DATE: 01/06/2017 SUBJECTIVE: The patient is seen lying in bed. He is awake, he is alert. He denies any pain. He denies any shortness of breath. He denies any abdominal pain. He denies any diarrhea. PHYSICAL EXAMINATION: GENERAL: Elderly male lying in bed. VITAL SIGNS: Blood pressure 125/88, heart rate 81, respiratory rate 20, and temperature 98.4. HEENT: Normocephalic, atraumatic. NECK: Supple and no JVD. LUNGS: Bilateral equal air entry. No rales. CARDIAC: S1 and S2, regular rate and rhythm. No murmur, no rub. ABDOMEN: Obese, distended, soft, and nontender. Bowel sounds present. EXTREMITIES: No lower extremity edema. INTAKE AND OUTPUT: 250/0. LABORATORY DATA: WBC 17, hemoglobin 14, hematocrit 41, and platelets 398. Sodium 141, potassium 4.7, chloride 111, CO2 of 16, BUN 64, creatinine 3.6. Glucose 94, calcium 8.6, albumin 3.4. Corrected calcium is 9.1. Pleural fluid; wbc's 9,760, neutrophils 93.3%. CURRENT MEDICATIONS: Aspirin, Cordarone, Coreg 25 b.i.d., Flomax, insulin, Lasix 40 mg daily, glyburide, Micronase, Plavix, and Protonix. ASSESSMENT AND PLAN: 1. Acute kidney injury, superimposed on chronic kidney disease stage IV, resolving acute kidney injury. 2. Status post diarrhea/dehydration. 3. Acute gout attack? 4. Leukocytosis, pain in the knee, joint fluid with . 5. Drz-pbfsvnn-ygzmdqmrj diabetes mellitus. 6. Hypertension. 7. Coronary artery disease, previous stent. PLAN: 1. Start colchicine 0.6 mg daily. 2. Avoid nephrotoxins. 3. Follow up cultures. 4. Monitor electrolytes and kidney function. Kaity Helms MD
[2017-01-07] MEDS: Pantoprazole 40 mg EC Tab PO SCH (06:42)
[2017-01-07] MEDS: Levothyroxine 125 MCG TAB PO SCH (06:42)
[2017-01-07] MEDS: Insulin Reg-LOW-Coverage SC SCH ×4 (08:45→21:51)
--- NOTE | 2017-01-07 13:02 | CP.PCM.PN ---
Subjective - Date & Time of Evaluation Date of Evaluation: 01/07/17 Time of Evaluation: 06:00 - Subjective Subjective: no knee pain, able to ambulate, denies diarrhea, no abdominal pain Objective - Vital Signs/Intake and Output Vital Signs (last 24 hours): Temp Pulse Resp BP Pulse Ox 97.6 F 78 18 143/96 H 92 L 01/07/17 08:12 01/07/17 10:49 01/07/17 08:12 01/07/17 10:49 01/07/17 08:12 Intake and Output: 01/07/17 01/07/17 06:59 18:59 Intake Total 120 Output Total 450 Balance -330 - Medications Medications: Current Medications Amiodarone HCl (Cordarone) 200 mg PO DAILY [facility] Last Admin: 01/07/17 10:48 Dose: 200 mg Aspirin (Aspirin Chewable) 81 mg PO DAILY [facility] Last Admin: 01/07/17 10:48 Dose: 81 mg Carvedilol (Coreg) 25 mg PO BID [facility] Last Admin: 01/07/17 10:49 Dose: 25 mg Clopidogrel Bisulfate (Plavix) 75 mg PO DAILY [facility] Last Admin: 01/07/17 10:49 Dose: 75 mg Colchicine (Colocrys) 0.6 mg PO DAILY [facility] Last Admin: 01/07/17 10:48 Dose: 0.6 mg Furosemide (Lasix) 40 mg PO DAILY [facility] Last Admin: 01/07/17 10:49 Dose: 40 mg Glyburide (Micronase) 5 mg PO 0800 [facility] Last Admin: 01/07/17 08:28 Dose: 5 mg Insulin Human Regular (Humulin R Low) 1 units SC [facility] PRN Reason: Protocol Last Admin: 01/07/17 12:03 Dose: 1 units Levothyroxine Sodium (Synthroid) 125 mcg PO 0600 [facility] Last Admin: 01/07/17 06:42 Dose: 125 mcg Pantoprazole Sodium (Protonix Ec Tab) 40 mg PO 0600 [facility] Last Admin: 01/07/17 06:42 Dose: 40 mg Sodium Bicarbonate (Sodium Bicarbonate Tab) 650 mg PO BID [facility] Last Admin: 01/07/17 10:48 Dose: 650 mg Tamsulosin HCl (Flomax) 0.4 mg PO DAILY [facility] Last Admin: 01/07/17 10:48 Dose: 0.4 mg Tramadol HCl (Ultram) 50 mg PO BID PRN PRN Reason: Pain, moderate (4-7) Last Admin: 01/04/17 10:41 Dose: 50 mg - Labs Labs: 01/06/17 06:00 01/06/17 06:00 PT 10.6 Seconds (9.9-11.8) 12/31/16 08:59 INR 0.98 (0.93-1.08) 12/31/16 08:59 APTT 30.1 Seconds (23.7-30.8) 12/31/16 08:59 - Respiratory Exam Respiratory Exam: Clear to Ausculation Bilateral, NORMAL BREATHING PATTERN - Cardiovascular Exam Cardiovascular Exam: REGULAR RHYTHM - GI/Abdominal Exam GI & Abdominal Exam: Soft, Normal Bowel Sounds - Extremities Exam Extremities Exam: Normal Inspection - Neurological Exam Neurological Exam: Alert, Awake, Normal Gait - Skin Skin Exam: Dry, Warm Assessment and Plan (1) Diarrhea Status: Resolved (2) Hyperkalemia Status: Acute (3) Metabolic acidosis Status: Acute (4) Renal failure Status: Acute (5) Coronary artery disease Status: Chronic (6) Pain, lower leg Status: Resolved (7) Non-sustained ventricular tachycardia Status: Acute (8) Leukocytosis Status: Acute (9) Gouty arthritis Status: Acute - Assessment and Plan (Free Text) Plan: colchicine started by nephrology, repeat WBC count, continue physical therapy, social work for discharge planning
--- NOTE | 2017-01-07 13:41 | PN ---
DATE: 01/07/2017 REASON FOR CONSULTATION AND FOLLOWUP: Admitted with acute kidney injury, chronic renal insufficiency, cardiomyopathy, 6 beats of VT. SUBJECTIVE: The patient denies any chest pain, shortness of breath, or any palpitation. OBJECTIVE: GENERAL: Lying on the bed, not in apparent distress, flat VITAL SIGNS: As follows: Temperature afebrile, heart rate 82, blood pressure 132/90. HEENT: PERRLA. Extraocular muscles intact. NECK: Supple. No carotid bruit or thyromegaly. CHEST: Clear to auscultation. HEART: S1 and S2, regular. ABDOMEN: Soft. EXTREMITIES: Clubbing and cyanosis negative. LABORATORY DATA: Blood workup as follows: WBC 17.1, hemoglobin 14.1, hematocrit 41.3, platelet count 398. Chemistry shows sodium 141, potassium 4.7, chloride 111, carbo dioxide 16, anion gap of 19, BUN 64, creatinine 3.6. IMPRESSION: Acute kidney injury secondary to diarrhea, chronic renal insufficiency, cardiomyopathy, coronary artery disease status post percutaneous transluminal coronary angioplasty, status post automatic implantable cardioverter-defibrillator, being followed by [facility] by Dr. Wright, history of hypertension, hyperlipidemia. While the patient is on telemetry, has 10 beats of ventricular tachycardia and couple of times 5-10 beats of ventricular tachycardia. Amiodarone was started. After IV 1 dose and p.o., now the patient is electrically stable. No further episode of arrhythmia noted. Ejection fraction 25% to 30%, last echo dated 08/12/2016, 4-chamber dilatation, right ventricular systolic pressure 48, history of right knee intra-articular injection by Dr. Castro, feels better. RECOMMENDATIONS: Telemetry has been discontinued. Continue aspirin. Continue amiodarone 200 mg daily. Continue Lasix. Continue Plavix. Continue Thyroxine. We will follow. CVS status is stable. The patient is okay to be discharged when stable from medical point of view. No further cardiac workup is planned. Mild electrolytes and periodically check thyroid function as the patient has a history of hypothyroidism and also started amiodarone. Ayad Pineda MD [facility] # [id number]
[2017-01-07] MEDS ORDERED: Midazolam 2 MG/2 ML VIAL ONE (14:35)
[2017-01-07 23:29] VITALS: RESP 20
[2017-01-08] MEDS: Levothyroxine 125 MCG TAB PO SCH (06:31)
[2017-01-08] MEDS: Pantoprazole 40 mg EC Tab PO SCH (06:31)
[2017-01-08 06:49] LABS: ALB/GLOB RATIO 1.3 (1.1-1.8); ALKALINE PHOSPHATASE 62 U/L (38-126); ALT/SGPT 24 U/L (7-56); AST/SGOT 32 U/L (17-59); BILIRUBIN,TOTAL 0.8 mg/dL (0.2-1.3); BLOOD UREA NITROGEN 14 mg/dL (7-21); CALCIUM 8.7 mg/dL (8.4-10.5); CARBON DIOXIDE 27 mmol/L (21-33); CHLORIDE 105 mmol/L (98-107); GFR AFRICAN-AMERICAN > 60; GLUCOSE,RANDOM 87 mg/dL (70-110); POTASSIUM 3.8 mmol/L (3.6-5.0); SODIUM 140 mmol/L (132-148); TOTAL PROTEIN 6.5 g/dL (5.8-8.3); URIC ACID 6.1 mg/dL (3.5-8.5)
[2017-01-08 07:50] VITALS: BP 131/91; PULSE 74; TEMP 98; O2SAT 100
[2017-01-08 07:52] LABS: BASO # 0.08 K/mm3 (0.0-2.0); BASO % 0.5 % (0.0-3.0); EOS # 1.1 (0.0-0.7); EOS % 6.9 % (1.5-5.0); GRAN # 11.52 (1.4-6.5); GRAN % 74.8 % (50.0-68.0); HEMATOCRIT 45.1 % (42.0-52.0); LYMPH # 1.8 (1.2-3.4); LYMPH % 11.8 % (22.0-35.0); MEAN CELL VOLUME 88.3 fl (80.0-105.0); MEAN CORPUSCULAR HEMOGLOBIN 30.5 pg (25.0-35.0); MEAN CORPUSCULAR HGB CONC 34.6 g/dl (31.0-37.0); MEAN PLATELET VOLUME 10.5 fl (7.0-11.0); MONO # 0.9 (0.1-0.6); WHITE BLOOD COUNT 15.4 10^3/ul (4.5-11.0)
--- NOTE | 2017-01-08 10:00 | PN ---
DATE: SUBJECTIVE: The patient is currently seen on 5R sitting in a chair. He states that he will likely be discharged later today. He is no longer complaining of any abdominal pain or diarrhea. Intravenous fluids have been discontinued. Oral intake has been adequate. MEDICATIONS: Medication list reviewed. The patient is on aspirin, colchicine, amiodarone, Coreg, Flomax, insulin, Lasix, Micronase, Plavix, Protonix, sodium bicarbonate, Synthroid, and Ultram. OBJECTIVE: INTAKE/OUTPUT: Intake 1200, output 205. VITAL SIGNS: Blood pressure 131/91, temperature 98, respiratory rate 20 with a pulse of 74. HEENT: Normocephalic, atraumatic. Conjunctivae pink. Sclera nonicteric. NECK: Supple. No neck vein distention. CHEST: Clear to auscultation and percussion. No rales, rhonchi or wheezing. CARDIOVASCULAR: Shows S1, S2 which are normal. Mitral regurgitation. No S3. No S4. No rub. ABDOMEN: Soft. Moderate obesity. Bowel sounds normal. No rebound, no guarding, no masses. EXTREMITIES: Show lower extremity stasis dermatitis with no pitting edema. Distal lower extremity pulses are 1-2+ bilaterally. LABORATORY DATA AND IMAGING: CBC from today white blood cell count 15.4 which is trending downward. Hemoglobin 15.6, platelet count is 423,000. Chemistries today likely not indirect sales representative of the patient's labs as his BUN is 14 and creatinine of 1.1, again the patient's baseline BUN is in the 30-40 range with a baseline creatinine in the upper 2 to low 3 range. Electrolytes are normal on this blood test. Calcium was 8.7. ASSESSMENT: Prerenal azotemia superimposed on chronic kidney disease stage IV in a patient with non-nephrotic range proteinuria. Past creatinine clearance was 25 mL per minute, dating back to the spring with 874 mg of protein in the urine. The patient is status post an episode of abdominal pain, diarrhea and decreased oral intake. This was accountable for his elevated BUN and creatinine superimposed on his chronic kidney disease. I believe that today's labs are likely a lab error. The patient is going to be discharged today. No reason to repeat these labs. Should the patient remain in the hospital longer than today, I will check his set of labs tomorrow morning. Status post diarrhea. History of non-insulin dependent diabetes mellitus, the patient's glucose control is acceptable. History of hypertension. Blood pressure control is fair on present blood pressure medication. History of arteriosclerotic heart disease status post automatic implantable cardioverter-defibrillator with mitral regurgitation, this appears to be stable. History of hypothyroidism. The patient will continue thyroid replacement therapy. PLAN: 1. Agree with tentative plans for discharge as in all likelihood, his BUN and creatinine are back to baseline levels. 2. Okay from my standpoint to patient remain on low dose diuretic therapy in light of his tendency to develop lower extremity edema in the setting of stasis dermatitis. 3. The patient should be followed closely in the outpatient setting with frequent evaluation of his laboratory work. Rom Winston MD
[2017-01-08] MEDS ORDERED: Influenza Vaccine 60 mcg/0.5 mL SYR (4YR UP) IM ONE (10:02)
--- NOTE | 2017-01-08 14:47 | PN ---
DATE: 01/08/2017 REASON FOR CONSULTATION: Follow up chronic renal insufficiency, cardiomyopathy, 6 beats of ventricular tachycardia, acute kidney injury. SUBJECTIVE: Patient is sitting in chair without any chest pain, shortness of breath, or palpitation. PHYSICAL EXAMINATION VITAL SIGNS: Blood pressure 131/91, respiration 20, pulse 74, temperature 98. HEENT: Head is normocephalic. Eyes, pupils normal. Conjunctivae normal. Nose and throat normal. NECK: JVP low, carotids equal. THORAX: AP diameter normal. LUNGS: Clear. CARDIOVASCULAR: S1 and S2. ABDOMEN: Soft. No organomegaly. EXTREMITIES: No clubbing, no cyanosis. LABORATORY DATA: WBC 15.4, hemoglobin 15.6, hematocrit 45.1, platelet 423. Sodium 140, potassium 3.8, BUN 14, creatinine 1.1, sugar 187. AST, ALT normal. Total protein and albumin normal. DIAGNOSES: Acute kidney injury secondary to diarrhea, chronic renal insufficiency, cardiomyopathy, coronary artery disease status post transluminal coronary angioplasty, status post automatic implantable cardioverter-defibrillator insertion being followed at [facility] at [place] by Dr. Wright, hypertension, hyperlipidemia, run off of 5 to 10 beats of ventricular tachycardia on telemetry. Patient's echocardiogram on 08/12/2016 showed ejection fraction of 25% to 30% with 4-chamber dilatation, right ventricular systolic pressure of 48 mmHg. PLAN: Patient on p.o. amiodarone 200 mg p.o. daily, Lasix, Plavix, Thyroxine. We will continue present therapy since patient is started on amiodarone and history of hypothyroidism. So, Dr. Meyer will be following TSH on this patient. We will follow. Ayad Moreau MD
--- NOTE | 2017-01-09 02:09 | DS ---
HOSPITAL COURSE: The patient is a 61-year-old male admitted through the emergency department on 12/31/2016 with persistent diarrhea. The patient was noted to be in acute renal failure with creatinine of 5, and was admitted for IV hydration. The patient was seen in consultation by Nephrology, Dr. Helms, and had improvement in her renal function. The patient's hospital course was complicated by exacerbation of gouty arthritis of the left knee. The patient was seen in consultation by Orthopedics, Dr. Castro, and received aspiration of the left knee joint which showed uric acid crystals and an intraarticular injection of steroids with improvement of his symptoms. The patient's diarrhea has resolved. He received a course of Cipro for infectious diarrhea, which improved and he is now medically stable for discharge. PHYSICAL EXAMINATION: VITAL SIGNS: Blood pressure 131/91, temperature 98, respiratory rate 20, and pulse 74. LUNGS: Clear. HEART: Regular rate and rhythm. ABDOMEN: Soft and nontender. Bowel sounds are normoactive. EXTREMITIES: Without cyanosis, clubbing or edema. NEUROLOGIC: The patient is awake and oriented x3 without focal sensory and motor deficits. Gait is within normal limits. SKIN: Warm and dry. LABORATORY DATA: WBC is 15.4, hemoglobin 15.6, hematocrit 45.1. Sodium 140, potassium 3.8, chloride 105, CO2 27, BUN 14, creatinine 1.1, and glucose 87. IMPRESSION: 1. Acute renal failure secondary to volume depletion from underlying infectious diarrhea. 2. Acute gouty arthritis. 3. Coronary artery disease, status post stent placement x2. 4. History of congestive heart failure. 5. Type 2 diabetes mellitus. 6. Hypothyroidism. 7. Benign prostatic hypertrophy. 8. Developmental disability. PLAN: The patient will be discharged to home today on the following medications. Aspirin 81 mg daily, colchicine 0.6 mg daily, and amiodarone 200 mg daily. The patient did have a short run of non-sustained ventricular tachycardia and was seen in consultation by Dr. Pineda and started on amiodarone. The patient is also being discharged on Coreg 25 mg twice a daily, Flomax 0.4 mg daily, Plavix 75 mg daily, glyburide 5 mg daily, and Synthroid 125 mcg daily. DIET: The patient will be maintained on a heart healthy diet. ACTIVITY: Ad libitum and the patient will be seen as an outpatient in the office within the next 1 to 2 weeks. SANTOS Cespedes MD
--- NOTE | 2017-01-10 08:19 | CON ---
NEUROLOGY CONSULTATION REPORT REASON FOR CONSULTATION: Left lower extremity weakness. HISTORY OF PRESENTING ILLNESS: The patient is 61-year-old male, who has been asked for evaluation of left lower extremity weakness. Consultation was called for Dr. Gamboa; however, me Dr. Meyers is covering Dr. Gamboa and seeing the patient. Apparently, the patient is having difficulty with ambulation over the last few hours with complaint of pain in his left knee. He recently had the left knee arthrocentesis done. The patient said because of the knee pain, it feels like he is weak in his left leg. Denies any weakness in his arms. Denies any low back pain. Denies any other complaints. REVIEW OF SYSTEMS: Denies any headache, dizziness, chest pain, shortness of breath, abdominal pain, constipation, diarrhea, dysuria, cough, or sputum production. Positive for left knee pain. PAST MEDICAL HISTORY: Cellulitis in the lower extremities, hypertension and diabetes mellitus. MEDICATIONS AT HOME: Included insulin, glyburide, Flomax, omeprazole, Synthroid, ketoconazole, vitamin D, Vasotec, colchicine, Plavix, Coreg and aspirin. ALLERGIES: NO KNOWN DRUG ALLERGIES. SOCIAL HISTORY: Denies smoking, use of alcohol or illicit drugs. FAMILY HISTORY: Reviewed and noncontributory to the case. PHYSICAL EXAMINATION: GENERAL: The patient is a middle-aged male lying on the bed, in no acute distress. VITAL SIGNS: Blood pressure is 147/67, heart rate is 77 per minute, breathing at the rate of 16 per minute and temperature is 98.3 degrees Fahrenheit. HEENT: Head is normocephalic and atraumatic. NECK: Supple. There are no carotid bruits. LUNGS: Clear. CARDIOPULMONARY: S1 and S2 audible. No murmurs. ABDOMEN: Soft and nontender. Bowel sounds are present. NEUROLOGY: Mental status: The patient is awake, alert, and oriented to time, place, and person. Speech is fluent. Naming and repetition normal. Memory and cognition are intact. Cranial nerve Examination: The pupils are 3 mm bilaterally reactive to light. Visual hernandez are full. Extraocular movements are intact. There is no facial asymmetry. Palate is upgoing bilaterally and tongue is midline. Motor Examination: Tone is normal. Power is 5/5 bilaterally in all extremities; however, there is decreased movement in the left lower extremity secondary to left knee pain. Gait is deferred at the moment. LABORATORY DATA: Labs reviewed shows CT of the lumbar spine shows L4-L5 mild facet arthropathy, L5-S1 disk degeneration. No evidence of spinal stenosis or vertebral compression fracture. His WBC is 17.0, hemoglobin 14.6, hematocrit of 42.9, and platelets of 423. Sodium of 141, potassium 4.8, chloride 108, carbon dioxide 21, BUN of 60, creatinine of 3.2, and glucose of 154. IMPRESSION: Gait dysfunction with subjective weakness in the left lower extremity secondary to left knee pain. RECOMMENDATIONS: 1. At the moment, the patient has no focal neurologic deficit. He does have left knee pain which is causing him to have restricted movement in the left lower extremity. 2. The patient had x-ray of the left knee, which is normal. 3. Consider rheumatologic or orthopedic evaluation for the left knee pain. 4. No further neurologic recommendations. Please call Neurology on an as-needed basis. Thank you for the opportunity to participate in the care of this patient. Zenaida Meyers MD
== END 2017-01-08 11:28 | disposition home or self-care (01) | DRG 316 ==
LOC: ED 08:31 → ERH 10:14 → 5RNO 11:28 → 2RSO 01-01 10:16 → 5RSO 01-06 18:13
PROVIDERS: ADMIT Internal Medicine; ATTEND Internal Medicine
PROC: 0S9D3ZZ Drainage of Left Knee Joint, Percutaneous Approach (ICD-10-PCS; principal; 2017-01-05)
PROC: 3E0U33Z Introduction of Anti-inflammatory into Joints, Percutaneous Approach (ICD-10-PCS; 2017-01-05)
PROC: 3E0U3BZ Introduction of Anesthetic Agent into Joints, Percutaneous Approach (ICD-10-PCS; 2017-01-05)
DX: N17.9 Acute kidney failure, unspecified (principal); I47.2 Ventricular tachycardia; E87.2 Acidosis; I42.9 Cardiomyopathy, unspecified; I13.0 Hypertensive heart and chronic kidney disease with heart failure and stage 1 through stage 4 chronic kidney disease, or unspecified chronic kidney disease; I50.9 Heart failure, unspecified; E83.42 Hypomagnesemia; E10.22 Type 1 diabetes mellitus with diabetic chronic kidney disease; I08.1 Rheumatic disorders of both mitral and tricuspid valves; E86.0 Dehydration; E87.5 Hyperkalemia; J44.9 Chronic obstructive pulmonary disease, unspecified; A09 Infectious gastroenteritis and colitis, unspecified; N18.4 Chronic kidney disease, stage 4 (severe); D63.1 Anemia in chronic kidney disease; E03.9 Hypothyroidism, unspecified; E78.5 Hyperlipidemia, unspecified; F79 Unspecified intellectual disabilities; D72.829 Elevated white blood cell count, unspecified; I25.10 Atherosclerotic heart disease of native coronary artery without angina pectoris; M13.862 Other specified arthritis, left knee; M10.9 Gout, unspecified; N40.0 Benign prostatic hyperplasia without lower urinary tract symptoms; Z79.4 Long term (current) use of insulin; Z79.82 Long term (current) use of aspirin; Z79.899 Other long term (current) drug therapy; Z86.718 Personal history of other venous thrombosis and embolism; Z87.891 Personal history of nicotine dependence; Z95.0 Presence of cardiac pacemaker; Z95.5 Presence of coronary angioplasty implant and graft; Z95.810 Presence of automatic (implantable) cardiac defibrillator; M51.37 Other intervertebral disc degeneration, lumbosacral region

== ENCOUNTER 2017-01-09 10:47 | Inpatient (IN) | payer OTHER ==
[2017-01-09 10:54] VITALS: BMI 29.6
--- NOTE | 2017-01-09 11:56 | ED PDOC ---
Arrival/HPI - General Chief Complaint: Lower Extremity Problem/Injury Time Seen by Provider: 01/09/17 11:11 Historian: Patient - History of Present Illness Narrative History of Present Illness (Text): 01/09/17 11:52 61 y/o male, pmh including htn/ckd stage 4/chf/dm/hypothyroidism/ hyperparathyroidism, nkda, bib [facility] member, recent admission for infectious diarrhea discharged on 01/07/17 w/ wbc>17 , recent left knee arthocentesis presents w/ sudden inability to ambulate from approximately 1-2 hours prior to ed presentation, c/o mild knee pain, lle numbness, and also continuing diarrhea , dark brown and loose, one episode last night , and also in 1 in am, w/ incontinence, w/ mild associated llq discomfort but denying BRBPR /MELENA/N/V/HEADACHE/CP/palpitations/ SOB/CELLUTLITIC CHANGES OVER KNEE . Pt denies any acute trauma at home. Time/Duration: 1-3 hours Symptom Onset: Sudden Symptom Course: Unchanged Activities at Onset: Light Past Medical History - Provider Review Nursing Documentation Reviewed: Yes - Travel History Have you recently traveled outside [place] w/in the past 3 mons?: No - Infectious Disease Hx of Infectious Diseases: None - Tetanus Immunization Tetanus Immunization: Unknown - Cardiac Hx Cardiac Disorders: Yes Hx Congestive Heart Failure: Yes Hx Hypertension: Yes Hx Pacemaker: Yes Other/Comment: x1 stent - Pulmonary Hx Respiratory Disorders: Yes Hx Chronic Obstructive Pulmonary Disease (COPD): Yes - Neurological Hx Neurological Disorder: Yes (MR) - HEENT Hx HEENT Disorder: No - Renal Hx Renal Disorder: Yes Hx Renal Failure: Yes - Endocrine/Metabolic Hx Endocrine Disorders: Yes Hx Diabetes Mellitus Type 1: Yes Hx Diabetes Mellitus Type 2: Yes Hx Hypothyroidism: Yes - Hematological/Oncological Hx Blood Disorders: No - Integumentary Hx Dermatological Disorder: Yes - Musculoskeletal/Rheumatological Hx Musculoskeletal Disorders: Yes Hx Falls: Yes - Gastrointestinal Hx Gastrointestinal Disorders: No - Genitourinary/Gynecological Hx Genitourinary Disorders: No - Psychiatric Hx Psychophysiologic Disorder: Yes Hx Substance Use: No Other/Comment: Developmental delay. - Surgical History Hx Cardiac Catheterization: Yes Hx Coronary Stent: Yes Other/Comment: cardiac cath, pacemaker with internal defribilator - Anesthesia Hx Anesthesia: Yes Hx Anesthesia Reactions: No Hx Malignant Hyperthermia: No - Suicidal Assessment Feels Threatened In Home Enviroment: No Family/Social History - Physician Review Nursing Documentation Reviewed: Yes Family/Social History: No Known Family HX Smoking Status: Never Smoked Hx Alcohol Use: No Hx Substance Use: No Hx Substance Use Treatment: No Allergies/Home Meds Allergies/Adverse Reactions: Allergies No Known Allergies Allergy (Verified 01/09/17 10:54) Home Medications: Home Meds Medication Instructions Recorded Confirmed Carvedilol [Coreg] 25 mg PO BID 01/03/16 01/09/17 Levothyroxine [Synthroid] 125 mcg PO DAILY 01/03/16 01/09/17 Enalapril Maleate [Vasotec] 10 mg PO DAILY 12/31/16 01/09/17 Ergocalciferol (Vitamin D2) 1.25 mg PO .WEEKLY 12/31/16 01/09/17 [Vitamin D2] Furosemide [Lasix] 80 mg PO DAILY 12/31/16 01/09/17 Ketoconazole 2% Cr [Nizoral] 1 appful TOP BID 12/31/16 01/09/17 Omeprazole 20 mg PO DAILY 12/31/16 01/09/17 Insulin Glargine,Hum.rec.anlog 25 units SC HS 01/09/17 01/09/17 [Demarcus Amaral] Review of Systems - Physician Review All systems were reviewed & negative as marked: Yes - Review of Systems Constitutional: Normal Eyes: Normal ENT: Normal Respiratory: Normal Cardiovascular: Normal Gastrointestinal: Diarrhea Genitourinary Male: Normal Musculoskeletal: Normal Skin: Normal Neurological: Focal Weakness Endocrine: Normal Hemo/Lymphatic: Normal Psychiatric: Normal Physical Exam Vital Signs Reviewed: Yes Vital Signs Temp Pulse Resp BP Pulse Ox 01/09/17 14:39 71 16 95 01/09/17 13:57 69 16 131/91 H 94 L 01/09/17 11:04 97.4 F L 77 16 124/80 95 Temperature: Afebrile Blood Pressure: Normal Pulse: Regular Respiratory Rate: Normal Appearance: Positive for: Well-Appearing, Non-Toxic, Comfortable Pain Distress: None Mental Status: Positive for: Alert and Oriented X 3 - Systems Exam Head: Present: Atraumatic, Normocephalic Pupils: Present: PERRL Extroacular Muscles: Present: EOMI Conjunctiva: Present: Normal Mouth: Present: Moist Mucous Membranes Neck: Present: Normal Range of Motion Respiratory/Chest: Present: Clear to Auscultation, Good Air Exchange. No: Respiratory Distress, Accessory Muscle Use Cardiovascular: Present: Regular Rate and Rhythm, Normal S1, S2. No: Murmurs Abdomen: Present: Normal Bowel Sounds. No: Tenderness, Distention, Peritoneal Signs Back: Present: Normal Inspection Upper Extremity: Present: Normal Inspection. No: Cyanosis, Edema Lower Extremity: Present: Other (fresh lle lateral knee bandage/ w/ no pustulent drainage underneath , nor any signs of cellulitis, nor focal ttp , ant /postdrawer sign (-), no varus /valgus laxity). No: Edema Neurological: Present: GCS=15, CN II-XII Intact, Speech Normal, Normal Sensory Function, Normal Cerebellar Funct, Norm Deep Tendon Reflexes, Normal 2Pt Descrimination (2-3/5 weakness in lle across all le joints. ), Other Skin: Present: Warm, Dry, Normal Color. No: Rashes Psychiatric: Present: Alert, Oriented x 3, Normal Insight, Normal Concentration Medical Decision Making ED Course and Treatment: 01/09/17 11:59 awaiting imaging/labs/imaging 01/09/17 12:08 pt states that onset of weakness was at 9:00 am, however , he relates he awoke in morning walked fine, then sat down and felt lower extremity numbness, and weakness and inability to stand , however then he contradicts himself and states that he walked to the phone to call for help, his repat exam is indicative fo 3/5 weakness. Pt exhibits a belle indeiiference a,d states that he would like to be admitted . Plan: -- EKG -- Labs -- Lumbar Spine CT -- Percocet 5/325 mg Tab -- Blood Culture -- CDIFF Toxin and Antigen -- Stool Culture -- Knee Left 2 View X-ray -- Urinalysis Progress Notes: PROCEDURE: Left Knee Radiographs. Dictator: Everardo Mendiola MD Report Date : 01/09/2017 14:04:31 IMPRESSION: Normal radiographs of the left knee. - Lab Interpretations Lab Results: 01/09/17 12:15 01/09/17 12:15 Lab Results 01/09/17 12:15: Sodium 141, Potassium 4.8, Chloride 108 H, Carbon Dioxide 21, Anion Gap 17, BUN 60 H, Creatinine 3.2 H, Est GFR ( Amer) 24, Est GFR ( Non-Af Amer) 20, Random Glucose 154 H, Calcium 8.4, Total Bilirubin 0.7, AST 25 , ALT 20, Alkaline Phosphatase 65, Troponin I 0.02 D, Total Protein 7.6, Albumin 3.6, Globulin 4.0, Albumin/Globulin Ratio 0.9 L 01/09/17 12:15: PT 12.0, INR 1.09 H, APTT 31.8 01/09/17 12:15: WBC 17.0 H, RBC 4.84, Hgb 14.6, Hct 42.9, MCV 88.6, MCH 30.2, MCHC 34.0, RDW 14.0, Plt Count 423, MPV 10.7, Gran % 83.1 H, Lymph % (Auto) 7.8 L, Kendall % (Auto) 4.1, Eos % (Auto) 4.5, Baso % (Auto) 0.5, Gran # 14.06 H, Lymph # 1.3, Kendall # 0.7 H, Eos # 0.8 H, Baso # 0.09 I have reviewed the lab results: Yes - RAD Interpretation Radiology Orders: 01/09/17 11:50 KNEE LEFT 2 VIEWS (AP & LAT) [RAD] Stat 01/09/17 13:54 LUMBAR SPINE W/O CONTRAST [CT] Stat - EKG Interpretation Interpreted by ED Physician: Yes Type: 12 lead EKG - Medication Orders Current Medication Orders: Acetaminophen (Tylenol 325mg Tab) 650 mg PO Q6H PRN PRN Reason: Pain, Mild (1-3) Acetaminophen (Tylenol 325mg Tab) 650 mg PO Q6H PRN PRN Reason: Fever >100.5 F Discontinued Medications Ciprofloxacin (Cipro 400mg/200ml Dsw) 400 mg in 200 mls @ 133.3 mls/hr IVPB STAT STA PRN Reason: Protocol Stop: 01/09/17 15:33 Metronidazole (Flagyl) 500 mg in 100 mls @ 100 mls/hr IVPB STAT STA PRN Reason: Protocol Stop: 01/09/17 15:04 Last Admin: 01/09/17 15:32 Dose: 100 mls/hr eMAR Start Stop Document 01/09/17 15:32 (Rec: 01/09/17 15:32 [id number]) Intravenous Solution Start Date 01/09/17 Start Time 15:32 Oxycodone/Acetaminophen (Percocet 5/325 Mg Tab) 1 tab PO STAT STA Stop: 01/09/17 12:01 Last Admin: 01/09/17 12:24 Dose: 1 tab MAR Pain Assessment Document 01/09/17 12:24 (Rec: 01/09/17 12:24 [id number]) Pain Reassessment Is this a pain reassessment? Yes Sleep Is patient sleeping during reassessment? No Presence of Pain Presence of Pain Yes - Scribe Statement The provider has reviewed the documentation as recorded by the Arden Helms Provider Scribe Attestation: All medical record entries made by the Arden were at my direction and personally dictated by me. I have reviewed the chart and agree that the record accurately reflects my personal performance of the history, physical exam, medical decision making, and the department course for this patient. I have also personally directed, reviewed, and agree with the discharge instructions and disposition. Disposition/Present on Arrival - Present on Arrival History of DVT/PE: No History of Uncontrolled Diabetes: No Urinary Catheter: No History of Decub. Ulcer: No History Surgical Site Infection Following: None - Disposition Disposition: HOSPITALIZED
[2017-01-09] MEDS ORDERED: Oxycodone/Acetaminophen 5/325 mg Tab PO STA (12:00)
[2017-01-09 12:44] LABS: BASO # 0.09 K/mm3 (0.0-2.0); BASO % 0.5 % (0.0-3.0); EOS # 0.8 (0.0-0.7); EOS % 4.5 % (1.5-5.0); GRAN # 14.06 (1.4-6.5); GRAN % 83.1 % (50.0-68.0); HEMATOCRIT 42.9 % (42.0-52.0); LYMPH # 1.3 (1.2-3.4); LYMPH % 7.8 % (22.0-35.0); MEAN CELL VOLUME 88.6 fl (80.0-105.0); MEAN CORPUSCULAR HEMOGLOBIN 30.2 pg (25.0-35.0); MEAN PLATELET VOLUME 10.7 fl (7.0-11.0); MONO # 0.7 (0.1-0.6); MONO % 4.1 % (1.0-6.0)
[2017-01-09 12:50] LABS: ALB/GLOB RATIO 0.9 (1.1-1.8); BILIRUBIN,TOTAL 0.7 mg/dL (0.2-1.3); CALCIUM 8.4 mg/dL (8.4-10.5); TOTAL PROTEIN 7.6 g/dL (5.8-8.3)
[2017-01-09 12:51] LABS: POTASSIUM 4.8 mmol/L (3.6-5.0)
[2017-01-09 13:01] LABS: TROPONIN I 0.02 ng/mL
[2017-01-09 13:07] LABS: INR 1.09 (0.93-1.08); PARTIAL THROMBOPLASTIN TIME 31.8 Seconds (25.1-36.5)
[2017-01-09] MEDS ORDERED: Ciprofloxacin 400mg/200ml D5W 400 MG/200 ML BAG IVPB STA (14:03)
[2017-01-09] MEDS ORDERED: metroNIDAZOLE IV 500 mg/100 ml 500 MG/100 ML BAG IVPB STA (14:05)
--- NOTE | 2017-01-09 14:05 | RAD ---
PROCEDURE: Left Knee Radiographs. HISTORY: Pain. COMPARISON: None. FINDINGS: BONES: Normal. No fracture. JOINTS: Normal. No osteoarthritis. JOINT EFFUSION: None. OTHER FINDINGS: None. IMPRESSION: Normal radiographs of the left knee.
--- NOTE | 2017-01-09 16:59 | CT ---
PROCEDURE: CT HEAD WITHOUT CONTRAST. HISTORY: lle weakness COMPARISON: None available. TECHNIQUE: Axial computed tomography images were obtained through the head/brain without intravenous contrast. Radiation dose: Total exam DLP = 1605 mGy-cm. This CT exam was performed using one or more of the following dose reduction techniques: Automated exposure control, adjustment of the mA and/or kV according to patient size, and/or use of iterative reconstruction technique. FINDINGS: HEMORRHAGE: No intracranial hemorrhage. BRAIN: No mass effect or edema. There is extensive cystic encephalomalacia in the right temporal lobe. There is also a small area of encephalomalacia in the left medial occipital lobe and left parietal lobe. Microvascular changes are also seen in the periventricular white matter and basal ganglia. There are no acute intracranial findings VENTRICLES: Unremarkable. No hydrocephalus. CALVARIUM: Unremarkable. PARANASAL SINUSES: Unremarkable as visualized. No significant inflammatory changes. MASTOID AIR CELLS: Unremarkable as visualized. No inflammatory changes. OTHER FINDINGS: None. IMPRESSION: No acute intracranial findings. Multiple areas of chronic encephalomalacia
--- NOTE | 2017-01-09 17:02 | CT ---
PROCEDURE: CT Lumbar Spine without contrast HISTORY: lle weakness COMPARISON: None. TECHNIQUE: Axial computed tomography images were obtained of the lumbar spine without the use of intravenous contrast. Coronal and sagittal reformatted images were created and reviewed. Radiation dose: Total exam DLP = mGy-cm. This CT exam was performed using one or more of the following dose reduction techniques: Automated exposure control, adjustment of the mA and/or kV according to patient size, and/or use of iterative reconstruction technique. FINDINGS: VERTEBRAE: Unremarkable. No fracture. Normal alignment. DISCS/SPINAL CANAL/NEURAL FORAMINA: L1-2: Unremarkable. L2-3: Unremarkable. L3-4: Unremarkable. L4-5: Mild facet arthropathy L5-S1: There is disc degeneration with a vacuum disc and mild disc bulge. PARASPINAL SOFT TISSUES: Unremarkable. OTHER FINDINGS: None. IMPRESSION: L4-5. Mild facet arthropathy. L5-S1 disc degeneration. No evidence of spinal stenosis or vertebral compression fracture
[2017-01-09 19:08] LABS: PH,URINE 5.5 (4.7-8.0); URINE BILIRUBIN NEGATIVE (NEGATIVE); URINE BLOOD TRACE-INTACT (NEGATIVE); URINE GLUCOSE (UA) NEGATIVE (NEGATIVE); URINE KETONE NEGATIVE (NEGATIVE); URINE LEUKOCYTE ESTERASE NEGATIVE Leu/uL (NEGATIVE); URINE PROTEIN NEGATIVE mg/dL (<30 mg/dL); URINE UROBILINOGEN 0.2 E.U./dL (<1 E.U./dL)
[2017-01-09 19:16] LABS: URINE APPEARANCE CLEAR (CLEAR); URINE COLOR YELLOW (YELLOW)
[2017-01-09 19:58] LABS: URINE BACTERIA SMALL (NEG); URINE RBC 0 - 2 /hpf (0-2); URINE WBC 0 - 2 /hpf (0-6)
[2017-01-09] MEDS: Insulin Detemir 100 units/ml Vial (Levemir) SC SCH (21:23)
--- NOTE | 2017-01-10 10:26 | CARD ---
APPROVED REPORT EKG Measurement Heart [id number] <Conclusion> Normal sinus rhythm Left bundle branch block Abnormal ECG
[2017-01-10] MEDS: Pantoprazole 40 mg EC Tab PO SCH (10:29)
[2017-01-10] MEDS: Levothyroxine 125 MCG TAB PO SCH (10:34)
--- NOTE | 2017-01-10 11:08 | CP.PCM.CON ---
History of Present Illness - History of Present Illness History of Present Illness: Neurology consult note for Dr. Gamboa's service cc: LLE weakness HPI: Patient is a 61yo male with past medical history of mild mental retardation , CHF s/p ICD, CAD s/p stents to LAD 08/2013, CKD stage 4, DM type 2, hypertension and hypothyroidism that presented to [facility] c/o LLE weakness. Patient reported that he was at home when suddenly he had difficulty moving his left lower extremity which was associated with numbness and tingling. He reported that he had to use a table nearby to lift himself up. He subsequently called for EMS and was brought to the hospital for further evaluation. On arrival to the ED, a CT head was done which revealed no acute intracranial abnormalities. A lumbar spine CT was notable for L4-L5 mild facet arthropathy, L5-S1 disc degeneration and no evidence of spinal stenosis or vertebral compression fracture. 12point ROS as per HPI above, otherwise negative PMH: mild mental retardation, CHF s/p ICD placement, CAD s/p PCI, CKD stage 4, hypertension, hypothyroidism, DM type 2, BPH PSH: ICD, PCI Allergies: NKDA Family Hx: Reviewed and noncontributory Social Hx: Denies tobacco, alcohol and illicit drug use PMD: Dr. Maldonado Past Patient History - Infectious Disease Hx of Infectious Diseases: None - Tetanus Immunizations Tetanus Immunization: Unknown - Past Medical History & Family History Past Medical History?: Yes - Past Social History Smoking Status: Never Smoked - CARDIAC Hx Cardiac Disorders: Yes Hx Congestive Heart Failure: Yes Hx Hypertension: Yes Hx Pacemaker: Yes Other/Comment: x1 stent - PULMONARY Hx Respiratory Disorders: Yes Hx Chronic Obstructive Pulmonary Disease (COPD): Yes - NEUROLOGICAL Hx Neurological Disorder: Yes (MR) - HEENT Hx HEENT Problems: No - RENAL Hx Chronic Kidney Disease: Yes Hx Renal Failure: Yes - ENDOCRINE/METABOLIC Hx Endocrine Disorders: Yes Hx Diabetes Mellitus Type 1: Yes Hx Diabetes Mellitus Type 2: Yes Hx Hypothyroidism: Yes - HEMATOLOGICAL/ONCOLOGICAL Hx Blood Disorders: No - INTEGUMENTARY Hx Dermatological Problems: Yes - MUSCULOSKELETAL/RHEUMATOLOGICAL Hx Falls: Yes - GASTROINTESTINAL Hx Gastrointestinal Disorders: No - GENITOURINARY/GYNECOLOGICAL Hx Genitourinary Disorders: No - PSYCHIATRIC Hx Psychophysiologic Disorder: Yes Other/Comment: Developmental delay. - SURGICAL HISTORY Hx Cardiac Catheterization: Yes Hx Coronary Stent: Yes Other/Comment: cardiac cath, pacemaker with internal defribilator - ANESTHESIA Hx Anesthesia: Yes Hx Anesthesia Reactions: No Hx Malignant Hyperthermia: No Meds Allergies/Adverse Reactions: Allergies Allergy/AdvReac Type Severity Reaction Status Date / Time No Known Allergies Allergy Verified 01/09/17 10:54 - Medications Medications: Current Medications Acetaminophen (Tylenol 325mg Tab) 650 mg PO Q6H PRN PRN Reason: Pain, Mild (1-3) Acetaminophen (Tylenol 325mg Tab) 650 mg PO Q6H PRN PRN Reason: Fever >100.5 F Aspirin (Aspirin Chewable) 81 mg PO DAILY [facility] Last Admin: 01/10/17 10:28 Dose: 81 mg Carvedilol (Coreg) 25 mg PO BID [facility] Last Admin: 01/10/17 10:27 Dose: 25 mg Clopidogrel Bisulfate (Plavix) 75 mg PO DAILY [facility] Last Admin: 01/10/17 10:29 Dose: 75 mg Glyburide (Micronase) 5 mg PO 0800 [facility] Last Admin: 01/10/17 08:37 Dose: 5 mg Insulin Detemir (Levemir) 12 unit SC Q12 [facility] Last Admin: 01/09/17 21:23 Dose: 12 unit Ketoconazole (Nizoral) 1 gm TOP BID [facility] Last Admin: 01/10/17 10:31 Dose: 1 applic Levothyroxine Sodium (Synthroid) 125 mcg PO DAILY [facility] Last Admin: 01/10/17 10:34 Dose: 125 mcg Lisinopril (Zestril) 10 mg PO DAILY [facility] Last Admin: 01/10/17 10:29 Dose: 10 mg Pantoprazole Sodium (Protonix Ec Tab) 40 mg PO DAILY [facility] Last Admin: 01/10/17 10:29 Dose: 40 mg Sodium Bicarbonate (Sodium Bicarbonate Tab) 650 mg PO BID [facility] Last Admin: 01/10/17 10:32 Dose: 650 mg Tamsulosin HCl (Flomax) 0.4 mg PO DAILY [facility] Last Admin: 01/10/17 10:29 Dose: 0.4 mg Physical Exam - Constitutional Appears: No Acute Distress - Head Exam Head Exam: ATRAUMATIC, NORMAL INSPECTION, NORMOCEPHALIC - Eye Exam Eye Exam: EOMI Pupil Exam: PERRL - ENT Exam ENT Exam: Mucous Membranes Moist Additional comments: tongue midline; no facial asymmetry - Neck Exam Neck exam: Positive for: Normal Inspection. Negative for: Lymphadenopathy, Tenderness, Thyromegaly - Respiratory Exam Respiratory Exam: Decreased Breath Sounds. absent: Rales, Rhonchi, Wheezes - Cardiovascular Exam Cardiovascular Exam: +S1, +S2. absent: Gallop, JVD, Rubs - GI/Abdominal Exam GI & Abdominal Exam: Distended, Hernia, Soft. absent: Firm, Guarding, Rebound, Rigid, Tenderness Additional comments: umbilical hernia - Extremities Exam Extremities exam: Negative for: tenderness Additional comments: bilateral lower extremity scarring secondary to pattreson reportedly sustained from a work injury - Neurological Exam Neurological exam: Alert, CN II-XII Intact, Oriented x3 - Expanded Neurological Exam Expanded Neuro motor strength exam: Left Upper Extremity: 5, Right Upper Extremity: 5, Left Lower Extremity: 4, Right Lower Extremity: 5 - Psychiatric Exam Psychiatric exam: Normal Affect, Normal Mood - Skin Skin Exam: Dry, Intact, Warm Results - Vital Signs Recent Vital Signs: Last Vital Signs Temp 9.8 F L 01/10/17 07:30 Pulse 77 01/10/17 10:29 Resp 18 01/10/17 07:30 BP 140/60 01/10/17 10:29 Pulse Ox 97 01/10/17 07:30 - Labs Result Diagrams: 01/09/17 12:15 01/09/17 12:15 Labs: Laboratory Results - last 24 hr 01/09/17 01/09/17 01/09/17 17:29 18:30 21:21 POC Glucose (mg/dL) 105 154 H Urine Color Yellow Urine Appearance Clear Urine pH 5.5 Ur Specific Wallace 1.015 Urine Protein Negative Urine Glucose (UA) Negative Urine Ketones Negative Urine Blood Trace-intact H Urine Nitrate Negative Urine Bilirubin Negative Urine Urobilinogen 0.2 Ur Leukocyte Esterase Negative Urine RBC 0 - 2 Urine WBC 0 - 2 Ur Epithelial Cells 3 - 4 Urine Bacteria Small 01/10/17 01/10/17 07:20 08:11 POC Glucose (mg/dL) 54 L 58 L Urine Color Urine Appearance Urine pH Ur Specific Wallace Urine Protein Urine Glucose (UA) Urine Ketones Urine Blood Urine Nitrate Urine Bilirubin Urine Urobilinogen Ur Leukocyte Esterase Urine RBC Urine WBC Ur Epithelial Cells Urine Bacteria Assessment & Plan - Assessment and Plan (Free Text) Plan: 61yo male with history of mild mental retardation, CHF s/p ICD, CAD s/p stents to LAD 08/2013, CKD stage 4, DM type 2, hypertension and hypothyroidism presents c/o LLE weakness 1. LLE weakness 2. CHF 3. CAD 4. CKD stage 4 5. DM type 2 6. Hypetension 7. Hypothyroidism -No focal neurologic deficits on examination; LLE weakness likely secondary to left knee pain. Recommend orthopedic or rheumatologic evaluation -CT head reviewed which revealed no acute intracranial abnormalities -Lumbar spine CT reviewed; revealed L4-L5 mild facet arthropathy, L5-S1 disc degeneration; no evidence of spinal stenosis or vertebral compression fractures ; see full report -Left Knee xray revealed no abnormalities -Recommend physical therapy evaluation -Continue current medical management as per primary team -Further recommendations as per Dr. Gamboa Patient seen and case discussed/reviewed with attending, Dr. Gamboa - Date & Time Date: 01/10/17 Time: 10:00
[2017-01-10] MEDS: Insulin Detemir 100 units/ml Vial (Levemir) SC SCH (11:50)
[2017-01-10] MEDS ORDERED: Bupivacaine 0.5% Inj(30mL) IJ ONE (15:23)
[2017-01-10] MEDS ORDERED: MethylPREDNISolone Depo 40 mg/ml Inj IM ONE (15:23)
[2017-01-10] MEDS ORDERED: Insulin Detemir 100 units/ml Vial (Levemir) SC SCH (22:00)
[2017-01-11 07:14] LABS: BILIRUBIN,TOTAL 0.8 mg/dL (0.2-1.3); CALCIUM 8.8 mg/dL (8.4-10.5); TOTAL PROTEIN 7.2 g/dL (5.8-8.3)
--- NOTE | 2017-01-11 08:20 | RAD ---
PROCEDURE: Bilateral Knee Radiographs. HISTORY: pain lt knee COMPARISON: None. FINDINGS: Visit acute fracture or dislocation/subluxation bilaterally. No destructive bone lesions appreciated either. Marked irregular articular cortex is appreciate the patellofemoral joints bilaterally, compatible with advanced osteoarthritis. Joint space merit narrowing and mild cortical thickening is present medial femorotibial partial compatible with moderate degenerative joint disease. Lateral femorotibial compartments appear least affected. Local soft tissues reflect vascular calcifications minimally posteriorly. No definite suprapatellar bursa effusion bilaterally. OTHER FINDINGS: None. IMPRESSION: Bilateral osteoarthritis. No acute fracture or dislocation identified. Go
--- NOTE | 2017-01-11 08:27 | CON ---
ORTHOPEDIC CONSULT DATE: 01/10/2017 TIME: 3:00 p.m. HISTORY OF PRESENT ILLNESS: The patient is a 61-year-old male last seen by me last week for effusion of his left knee, found to have gouty arthritis. Today, the left knee still hurt some which was better for 2 to 3 days, now it started aching at weekend. No effusion is in the left knee and he does have patellofemoral crepitus indicating that he has some underlying arthrosis of the left knee. So I get standing x-rays this time and get a skyline view of patellofemoral joint. I hesitate to give him another Depo-Medrol injection because he is diabetic. I will start physical therapy for aggressive strengthening exercise of both knees to do quad test and straight leg raising and hopefully this will improve his patellofemoral stability. He is not a surgical candidate, we will try to treat him conservatively with ambulation with a walker and strengthening exercise to both knees and I will follow him closely. If he does reaccumulate an effusion, then I may have to do an arthrocentesis with injection Depo-Medrol for the gouty inflammatory arthritis. I will follow him while he is in the hospital, but if he comes to the office, he is a candidate for high alkaline injection which is very good for arthrosis of the knee. I will evaluate him after the x-rays are done. Everardo Castro DO
[2017-01-11 08:28] LABS: T4 7.7 ug/dL (5.5-11.0)
--- NOTE | 2017-01-11 08:29 | HP ---
HISTORY OF PRESENT ILLNESS: The patient is a 61-year-old male admitted through the emergency department on 01/09/2017 with complaints of diarrhea, poor oral intake, abdominal discomfort, and sudden onset of weakness of the left lower extremity with inability to walk. The patient denied any nausea, no vomiting, no chest pain, no shortness of breath. No melena. No bright red blood per rectum. No jaundice. The patient is admitted to the medical/surgical unit for further evaluation and management. PAST MEDICAL HISTORY: Includes coronary artery disease status post PTCA and stent placement x2. The patient is status post pacemaker placement approximately two years ago. He has a history of hypothyroidism on thyroid hormone replacement, CHF, and developmental disability as well as type 2 diabetes mellitus, which is insulin requiring. PAST SURGICAL HISTORY: Includes BPH. ALLERGIES: THE PATIENT HAS NO KNOWN ALLERGIES. CURRENT MEDICATIONS: Include Carvedilol 25 mg twice daily, Lipitor 20 mg daily, Ecotrin 81 mg daily, Plavix 75 mg daily, glyburide 5 mg daily, insulin glargine 25 units at bedtime, Synthroid 125 mcg daily, sodium bicarbonate 650 mg daily, and Flomax 0.4 mg daily. FAMILY HISTORY: Noncontributory. SOCIAL HISTORY: There is no history of tobacco or alcohol use. The patient lives in an Adult Alf secondary to developmental disability. REVIEW OF SYSTEMS: As above. PHYSICAL EXAMINATION: GENERAL: The patient is a well-developed male, in no acute distress. VITAL SIGNS: Blood pressure 140/60, pulse 77, temperature 98.6, respiratory rate 18. HEENT: Head is normocephalic and atraumatic. Pupils equal, round, and reactive to light. Extraocular movements are intact. NECK: Supple with no thyromegaly. No carotid bruit. LUNGS: Clear. HEART: Regular rate and rhythm. There is a permanent pacemaker in the left chest wall, which is intact. ABDOMEN: Soft and nontender. Bowel sounds are mildly hyperactive. EXTREMITIES: Without cyanosis, clubbing, or edema. There is decreased range of motion of the left knee joint with slight warmth. No erythema. No edema. NEUROLOGIC: The patient is awake and responsive without focal, sensory, or motor deficits. SKIN: Warm and dry. LABORATORY DATA: WBC is elevated 17.0, hemoglobin 14.6, and hematocrit 42.9. Chemistry: Glucose is elevated at 170. IMPRESSION: 1. Diarrhea, rule out infectious diarrhea. The patient was recently treated empirically with Cipro 250 mg twice daily with improvement of symptoms. He received some IV Cipro and Flagyl in the emergency department and is not complaining of any diarrhea at present. 2. Coronary artery disease status post stent placement x2. 3. Congestive heart failure. 4. Type 2 diabetes mellitus. 5. Hypothyroidism. 6. Benign prostatic hypertrophy. 7. Developmental disability. 8. Degenerative joint disease status post arthrocentesis and intraarticular injection of the left knee, which was positive for uric acid crystals possibly acute gouty arthritis in the left knee. PLAN: The patient is admitted to the medical/surgical floor. We will obtain neurology consult for the weakness of the left leg, endocrinology consult, Dr. Lopez for hypothyroidism and uncontrolled diabetes. We will obtain nephrology consultation by Dr. Helms for azotemia, GI consult for possible colitis/gastroenteritis. We will obtain orthopedic consult from Dr. Castro for recurrent acute gouty arthritis of the left knee. Monitor electrolytes and renal function. Physical therapy and social work for discharge planning. Asa Meyer JD/
--- NOTE | 2017-01-11 08:31 | CON ---
DATE: 01/10/2017 REASON FOR CONSULTATION: Chronic kidney disease stage IV, leukocytosis. HISTORY OF PRESENT ILLNESS: The patient was recently [place] [facility] [place] diarrhea, dehydration, acute kidney injury. His acute kidney injury resolved. The patient was discharged home on Tuesday. The patient had a left knee aspiration during his last admission. He was found to have uric acid crystals in his joint fluid. He was started on colchicine. The patient reported that he was walking when he went home, but yesterday, could not walk anymore, so he came back to the emergency room. He denies any fevers, chills. He denies any abdominal pain. He denies any nausea, vomiting, or diarrhea. PAST MEDICAL AND SURGICAL HISTORY: NIDDM, hypertension, chronic kidney disease stage IV, CAD, CHF, CMP, mental retardation, anemia of chronic kidney disease, secondary hyperparathyroidism. FAMILY HISTORY: Noncontributory. SOCIAL HISTORY: No smoking, no alcohol use, no IV drug abuse. ALLERGIES: NO KNOWN DRUG ALLERGIES. MEDICATIONS: Enalapril 10, colchicine 0.6 t.i.d., Plavix, Coreg 25 b.i.d., aspirin, Lasix 80 daily, omeprazole, sodium bicarbonate 650 b.i.d., Flomax 0.4, glyburide 5, insulin. REVIEW OF SYSTEMS: All systems are reviewed, pertinent positives as mentioned in history of presenting illness, rest unremarkable. PHYSICAL EXAMINATION: GENERAL: Elderly male, sitting in chair, in no acute distress. VITAL SIGNS: Blood pressure 107/78, heart rate 66, respiratory rate 20, temperature 97.7. HEENT: Normocephalic, atraumatic. NECK: Supple, no JVD. LUNGS: Bilateral equal air entry, no rales. CARDIAC: S1 and S2. Regular rate and rhythm. No murmur, no rub. ABDOMEN: Obese, distended, soft, nontender, bowel sounds present. EXTREMITIES: No lower extremity edema, minimal left knee effusion. INTAKE AND OUTPUT: 480/200. LABORATORY DATA: WBC 17, hemoglobin 14.6, hematocrit 43, and platelets 423. Sodium 141, potassium 4.8, chloride 108, CO2 of 21, BUN 60, creatinine 3.2, glucose 154, calcium 8.4, AST 25, ALT 20, albumin 3.6. Urinalysis, yellow clear, pH 5.5, specific gravity 1.015, blood trace intact. CURRENT MEDICATIONS: Aspirin, Coreg, Flomax, Levemir, ketoconazole, Plavix, Prandin, Protonix, sodium bicarbonate, Synthroid, Tylenol, and Zestril 10. ASSESSMENT: 1. Stable chronic kidney disease, stage IV. 2. Left knee pian, leukocytosis?, ? septic knee. 3. Gouty arthritis of the knee, worsened? 4. Ouk-wiylqbu-utlrlqtgo diabetes mellitus. 5. Hypertension. 6. Coronary artery disease/congestive heart failure. PLAN: 1. Check uric acid levels. 2. Empiric antibiotics? 3. Re-tap, left knee? 4. Infectious Disease evaluation. Thank you for the courtesy of this consultation. We will follow this patient closely with you. Kaity Helms MD
--- NOTE | 2017-01-11 08:33 | CON ---
DATE: 01/10/2017 ENDOCRINOLOGY CONSULTATION LOCATION: Room 568. HISTORY OF PRESENT ILLNESS: This is a 61-year-old male with known history of type 2 insulin-requiring diabetes presenting here with diffuse abdominal pain and supervening diarrhea and is now undergoing GI workup at this time and is also being referred now for diabetic evaluation because of extremes of glycemic fluctuation as noted thereof. He also underwent recent left knee arthrocentesis as noted with persistent polyarthralgias and myalgias. PAST MEDICAL HISTORY: As mentioned above, history of type 2 insulin-requiring diabetes, on a combination of basal insulin and oral hypoglycemic therapy as given. He has been using Micronase given as 5 mg b.i.d. as noted, history of hypertensive cardiovascular disease and dyslipidemia, history of diabetic retinopathy, polyneuropathy and nephropathy with chronic kidney disease, history of coronary artery disease and peripheral arterial disease and vasculopathy. FAMILY HISTORY: Positive for diabetes, hypertension. SOCIAL HISTORY: The patient has supportive family. No known substance use. REVIEW OF SYSTEMS: As mentioned above. Admits to generalized body weakness with easy fatigability and tiredness and suboptimal energy level. Also admits to episodic bouts of dizziness and lightheadedness, worse on the day of admission. No chest pains or palpitations or PNDs, but admits to progressive shortness of breath especially on exertion. His oral intake has been variable and suboptimal at this time with nausea, dyspepsia and vague upper abdominal pain. Also admits to recent bouts of loose watery diarrhea as noted. PHYSICAL EXAMINATION: GENERAL: This is an average-built male in no apparent distress. VITAL SIGNS: Blood pressure of 140/80, 150/90, 160/90; pulse of 70 beats per minute, regular; temperature 98; respirations 20. HEENT: Head is normocephalic. Eyes anicteric with pink conjunctivae. Funduscopy not possible at this time. Ears, nose, and throat, otherwise, normal. NECK: Supple. Thyroid gland is normal in size. No carotid bruits or cervical adenopathy. CARDIOPULMONARY: Adynamic precordium. S1 and S2 are rapid and regular. LUNGS: Clear to auscultation. ABDOMEN: Flat, soft with positive bowel sounds. EXTREMITIES: No peripheral edema. Pulses are +2 bilaterally. LABORATORY DATA: His chemistry showed a BUN of 60, sodium 141, potassium 4.8, chloride 108, CO2 of 21, glucose 154, creatinine 3.2. ASSESSMENT: This is a 61-year-old male with uncontrolled and decompensated type 2 insulin-requiring diabetes with extremes of glycemic fluctuations, most likely related to the progressive renal insufficiency and impaired absorption and excretion of insulin regimen with concomitant suboptimal and variable oral intake contributing to the symptomatic bouts of hypoglycemic episodes as noted. He also has diabetic microvascular complications of retinopathy, polyneuropathy and nephropathy with advanced azotemia as noted thereof. Moreover, he has diabetic microvascular complications of coronary artery disease and peripheral arterial disease and vasculopathy. PLAN: Plan of management was discussed with the patient and staff. We will modify his current insulin regimen and lower the Levemir to 14 units subcutaneous only given at bedtime and discontinue the morning basal insulin to obviate hypoglycemia, especially with the variability of his oral intake. We will add the low-dose short-acting oral hypoglycemic therapy which is quite safe in patients with advanced azotemia and renal failure, and we will give him Prandin given as 1 mg p.o. t.i.d. before meals as ordered. We will titrate incremental as indicated to optimize metabolic control. We will obtain serial chemistries and supplement accordingly needed. We will also obtain a hemoglobin A1c to ____ glycemic control and baseline thyroid function studies will be ordered. We will follow and advise accordingly. Heydi Lopez MD
[2017-01-11 08:42] LABS: THYROID STIMULATING HORMONE 2.69 mIU/mL (0.46-4.68)
[2017-01-11] MEDS: Pantoprazole 40 mg EC Tab PO SCH (10:14)
[2017-01-11] MEDS: Levothyroxine 125 MCG TAB PO SCH (10:14)
--- NOTE | 2017-01-11 10:38 | CP.PCM.PN ---
Subjective - Date & Time of Evaluation Date of Evaluation: 01/11/17 Time of Evaluation: 09:15 - Subjective Subjective: somewhat decreased left knee pain, no diarrhea, no abdominal pain, no nausea/ vomiting Objective - Vital Signs/Intake and Output Vital Signs (last 24 hours): Temp Pulse Resp BP Pulse Ox 97.9 F 68 18 113/80 97 01/11/17 07:30 01/11/17 10:14 01/11/17 07:30 01/11/17 10:14 01/11/17 07:30 - Medications Medications: Current Medications Acetaminophen (Tylenol 325mg Tab) 650 mg PO Q6H PRN PRN Reason: Pain, Mild (1-3) Acetaminophen (Tylenol 325mg Tab) 650 mg PO Q6H PRN PRN Reason: Fever >100.5 F Aspirin (Aspirin Chewable) 81 mg PO DAILY [facility] Last Admin: 01/11/17 10:14 Dose: 81 mg Carvedilol (Coreg) 25 mg PO BID [facility] Last Admin: 01/11/17 10:14 Dose: 25 mg Clopidogrel Bisulfate (Plavix) 75 mg PO DAILY [facility] Last Admin: 01/11/17 10:16 Dose: 75 mg Insulin Detemir (Levemir) 14 unit SC HS [facility] Last Admin: 01/10/17 21:50 Dose: 14 unit Ketoconazole (Nizoral) 1 gm TOP BID [facility] Last Admin: 01/11/17 10:17 Dose: 1 applic Levothyroxine Sodium (Synthroid) 125 mcg PO DAILY [facility] Last Admin: 01/11/17 10:14 Dose: 125 mcg Lisinopril (Zestril) 10 mg PO DAILY [facility] Last Admin: 01/11/17 10:13 Dose: 10 mg Pantoprazole Sodium (Protonix Ec Tab) 40 mg PO DAILY [facility] Last Admin: 01/11/17 10:14 Dose: 40 mg Repaglinide (Prandin) 1 mg PO AC [facility] Last Admin: 01/11/17 08:52 Dose: 1 mg Sodium Bicarbonate (Sodium Bicarbonate Tab) 650 mg PO BID [facility] Last Admin: 01/11/17 10:19 Dose: 650 mg Tamsulosin HCl (Flomax) 0.4 mg PO DAILY [facility] Last Admin: 01/11/17 10:13 Dose: 0.4 mg - Labs Labs: 01/11/17 06:44 PT 12.0 SECONDS (9.4-12.5) 01/09/17 12:15 INR 1.09 (0.93-1.08) H 01/09/17 12:15 APTT 31.8 Seconds (25.1-36.5) 01/09/17 12:15 - Respiratory Exam Respiratory Exam: Clear to Ausculation Bilateral, NORMAL BREATHING PATTERN - Cardiovascular Exam Cardiovascular Exam: REGULAR RHYTHM - GI/Abdominal Exam GI & Abdominal Exam: Soft, Normal Bowel Sounds - Neurological Exam Neurological Exam: Abnormal Gait, Alert, Awake - Skin Skin Exam: Dry, Warm Assessment and Plan (1) Diarrhea Status: Acute (2) Gouty arthritis Status: Acute (3) Pain, lower leg Status: Acute (4) Chronic kidney disease Status: Chronic - Assessment and Plan (Free Text) Plan: continue present work-up, renal, endocrine, ortho, GI consults appreciated
[2017-01-11] MEDS ORDERED: Barium Sulfate Susp 2.1% w/v, 2.0% w/w 450 mL Bottle PO ONE (11:47)
--- NOTE | 2017-01-11 14:00 | CP.PCM.CON ---
<Paula Edmonds - Last Filed: 01/11/17 13:53> History of Present Illness - History of Present Illness History of Present Illness: Seen and examined at the bedside earlier today, the chart was reviewed. Request for GI consultation is for diarrhea. HPI: This is a 61-year-old male with a past medical history of coronary artery disease with PTCA and stent placement 2, pacemaker, hypothyroidism, CHF and developmental disability was brought to the emergency room with complaints of diarrhea, decreased oral intake, abdominal discomfort and weakness of lower extremities. The patient currently denies any recent diarrhea, patient states his last episode of diarrhea was on Tuesday. He reports having a solid stool yesterday, did not notice any melena or bright red blood per rectum. No complaints of nausea, vomiting, or abdominal pain. Denies any weight loss or loss of appetite. Patient denies any recent antibiotic use or contributory foods, or sick contacts. This patient was evaluated by our service back in August 2016, celiac disease panel was done which was negative. The patient's diarrhea resolved and was recommended elective outpatient colonoscopy. On this admission the patient had stool for C. difficile and that was negative the stool culture is pending. PMH: CHF, CAD, w/PTCA, stent, CHF, hypothyroidsim, DM type II, BPH, Developmental Disability PSH: Pacemaker, Coronaty stent X2 , Allergies: NKDA Family HX: noncontributory Social HX: deies tobacco, ETOH, Drugs MEDs: reviewed as per MAY ROS: systems reviewed with positive findings, see HPI: Past Patient History - Infectious Disease Hx of Infectious Diseases: None - Tetanus Immunizations Tetanus Immunization: Unknown - Past Medical History & Family History Past Medical History?: Yes - Past Social History Smoking Status: Never Smoked - CARDIAC Hx Cardiac Disorders: Yes (cardiac cath, coronary stent, pacemake w/ internal defibrillator) Hx Congestive Heart Failure: Yes Hx Hypertension: Yes - PULMONARY Hx Respiratory Disorders: Yes Hx Chronic Obstructive Pulmonary Disease (COPD): Yes - NEUROLOGICAL Hx Neurological Disorder: Yes (MR) - HEENT Hx HEENT Problems: No - RENAL Hx Chronic Kidney Disease: Yes Hx Renal Failure: Yes - ENDOCRINE/METABOLIC Hx Diabetes Mellitus Type 2: Yes Hx Hypothyroidism: Yes - HEMATOLOGICAL/ONCOLOGICAL Hx Blood Disorders: No - INTEGUMENTARY Hx Dermatological Problems: Yes - MUSCULOSKELETAL/RHEUMATOLOGICAL Hx Arthritis: Yes - GASTROINTESTINAL Hx Gastrointestinal Disorders: No - GENITOURINARY/GYNECOLOGICAL Hx Genitourinary Disorders: No - PSYCHIATRIC Hx Psychophysiologic Disorder: Yes Other/Comment: Developmental delay. - SURGICAL HISTORY Hx Cardiac Catheterization: Yes Hx Coronary Stent: Yes Other/Comment: cardiac cath, pacemaker with internal defribilator - ANESTHESIA Hx Anesthesia: Yes Hx Anesthesia Reactions: No Hx Malignant Hyperthermia: No Meds Allergies/Adverse Reactions: Allergies Allergy/AdvReac Type Severity Reaction Status Date / Time No Known Allergies Allergy Verified 01/09/17 10:54 - Medications Medications: Current Medications Acetaminophen (Tylenol 325mg Tab) 650 mg PO Q6H PRN PRN Reason: Pain, Mild (1-3) Acetaminophen (Tylenol 325mg Tab) 650 mg PO Q6H PRN PRN Reason: Fever >100.5 F Aspirin (Aspirin Chewable) 81 mg PO DAILY [facility] Last Admin: 01/11/17 10:14 Dose: 81 mg Carvedilol (Coreg) 25 mg PO BID [facility] Last Admin: 01/11/17 10:14 Dose: 25 mg Clopidogrel Bisulfate (Plavix) 75 mg PO DAILY [facility] Last Admin: 01/11/17 10:16 Dose: 75 mg Insulin Detemir (Levemir) 6 unit SC [facility] Ketoconazole (Nizoral) 1 gm TOP BID [facility] Last Admin: 01/11/17 10:17 Dose: 1 applic Levothyroxine Sodium (Synthroid) 125 mcg PO DAILY [facility] Last Admin: 01/11/17 10:14 Dose: 125 mcg Lisinopril (Zestril) 10 mg PO DAILY [facility] Last Admin: 01/11/17 10:13 Dose: 10 mg Pantoprazole Sodium (Protonix Ec Tab) 40 mg PO DAILY [facility] Last Admin: 01/11/17 10:14 Dose: 40 mg Repaglinide (Prandin) 1 mg PO AC [facility] Last Admin: 01/11/17 12:34 Dose: 1 mg Sodium Bicarbonate (Sodium Bicarbonate Tab) 650 mg PO BID [facility] Last Admin: 01/11/17 10:19 Dose: 650 mg Tamsulosin HCl (Flomax) 0.4 mg PO DAILY [facility] Last Admin: 01/11/17 10:13 Dose: 0.4 mg Physical Exam - Constitutional Appears: No Acute Distress - Head Exam Head Exam: NORMOCEPHALIC - Eye Exam Eye Exam: Normal appearance. absent: Scleral icterus - ENT Exam ENT Exam: Mucous Membranes Moist - Neck Exam Neck exam: Positive for: Normal Inspection - Respiratory Exam Respiratory Exam: Decreased Breath Sounds, NORMAL BREATHING PATTERN. absent: Rales, Wheezes, Respiratory Distress - Cardiovascular Exam Cardiovascular Exam: +S1, +S2 - GI/Abdominal Exam GI & Abdominal Exam: Normal Bowel Sounds, Soft. absent: Distended, Guarding, Organomegaly, Rebound, Tenderness - Extremities Exam Extremities exam: Positive for: pedal pulses present. Negative for: calf tenderness, pedal edema - Neurological Exam Neurological exam: Alert, Oriented x3 - Skin Skin Exam: Dry, Warm Results - Vital Signs Recent Vital Signs: Last Vital Signs Temp 97.9 F 01/11/17 07:30 Pulse 68 01/11/17 10:14 Resp 18 01/11/17 07:30 BP 113/80 01/11/17 10:14 Pulse Ox 97 01/11/17 07:30 - Labs Result Diagrams: 01/09/17 12:15 01/11/17 06:44 Labs: Laboratory Results - last 24 hr 01/10/17 01/10/17 01/10/17 17:25 18:32 21:29 Sodium Potassium Chloride Carbon Dioxide Anion Gap BUN Creatinine Est GFR ( Amer) Est GFR (Non-Af Amer) POC Glucose (mg/dL) 92 83 Random Glucose Hemoglobin A1c Uric Acid 12.5 H Calcium Total Bilirubin AST ALT Alkaline Phosphatase Total Protein Albumin Globulin Albumin/Globulin Ratio Triglycerides Cholesterol LDL Cholesterol Direct HDL Cholesterol Thyroxine (T4) TSH 3rd Generation 01/11/17 01/11/17 01/11/17 06:44 06:44 06:44 Sodium 141 Potassium 5.0 Chloride 110 Carbon Dioxide 20 L Anion Gap 16 BUN 61 H Creatinine 3.2 H Est GFR ( Amer) 24 Est GFR (Non-Af Amer) 20 POC Glucose (mg/dL) Random Glucose 57 L Hemoglobin A1c 8.0 H Uric Acid Calcium 8.8 Total Bilirubin 0.8 AST 24 ALT 26 Alkaline Phosphatase 57 Total Protein 7.2 Albumin 3.6 Globulin 3.7 Albumin/Globulin Ratio 1.0 L Triglycerides 404 H Cholesterol 200 LDL Cholesterol Direct 101 HDL Cholesterol 20 L Thyroxine (T4) 7.7 TSH 3rd Generation 2.69 01/11/17 01/11/17 07:33 11:13 Sodium Potassium Chloride Carbon Dioxide Anion Gap BUN Creatinine Est GFR ( Amer) Est GFR (Non-Af Amer) POC Glucose (mg/dL) 53 L 186 H Random Glucose Hemoglobin A1c Uric Acid Calcium Total Bilirubin AST ALT Alkaline Phosphatase Total Protein Albumin Globulin Albumin/Globulin Ratio Triglycerides Cholesterol LDL Cholesterol Direct HDL Cholesterol Thyroxine (T4) TSH 3rd Generation Assessment & Plan - Assessment and Plan (Free Text) Assessment: Assessment: Diarrhea, now resolved differential gastroenteritis Acute renal failure History of coronary artery disease status post stent placement 2 CHF Developmental disability DJD status post arthrocentesis and ensure the articular injection of left knee Plan: Request for CT scan of abdomen and pelvis with only oral contrast follow-up stool culture continue Protonix On Plavix and aspirin diet as tolerated May benefit from elective colonoscopic evaluation Thank you for this consult and for the last participate in your patient's care, further recommendations based upon clinical course. Seen and discussed with Dr. Levy. <Temo Levy V - Last Filed: 01/11/17 23:55> Meds - Medications Medications: Current Medications Acetaminophen (Tylenol 325mg Tab) 650 mg PO Q6H PRN PRN Reason: Pain, Mild (1-3) Acetaminophen (Tylenol 325mg Tab) 650 mg PO Q6H PRN PRN Reason: Fever >100.5 F Aspirin (Aspirin Chewable) 81 mg PO DAILY [facility] Last Admin: 01/11/17 10:14 Dose: 81 mg Carvedilol (Coreg) 25 mg PO BID [facility] Last Admin: 01/11/17 17:45 Dose: 25 mg Clopidogrel Bisulfate (Plavix) 75 mg PO DAILY [facility] Last Admin: 01/11/17 10:16 Dose: 75 mg Insulin Detemir (Levemir) 6 unit SC HS [facility] Last Admin: 01/11/17 22:05 Dose: 6 unit Ketoconazole (Nizoral) 1 gm TOP BID [facility] Last Admin: 01/11/17 10:17 Dose: 1 applic Levothyroxine Sodium (Synthroid) 125 mcg PO DAILY [facility] Last Admin: 01/11/17 10:14 Dose: 125 mcg Lisinopril (Zestril) 10 mg PO DAILY [facility] Last Admin: 01/11/17 10:13 Dose: 10 mg Pantoprazole Sodium (Protonix Ec Tab) 40 mg PO DAILY [facility] Last Admin: 01/11/17 10:14 Dose: 40 mg Repaglinide (Prandin) 1 mg PO AC [facility] Last Admin: 01/11/17 17:39 Dose: Not Given Sodium Bicarbonate (Sodium Bicarbonate Tab) 650 mg PO BID [facility] Last Admin: 01/11/17 17:39 Dose: 650 mg Tamsulosin HCl (Flomax) 0.4 mg PO DAILY [facility] Last Admin: 01/11/17 10:13 Dose: 0.4 mg Results - Vital Signs Recent Vital Signs: Last Vital Signs Temp 97.5 F L 01/11/17 16:00 Pulse 69 01/11/17 17:45 Resp 20 01/11/17 16:00 BP 112/68 01/11/17 17:45 Pulse Ox 97 01/11/17 16:00 - Labs Result Diagrams: 01/09/17 12:15 01/11/17 06:44 Labs: Laboratory Results - last 24 hr 01/11/17 01/11/17 01/11/17 06:44 06:44 06:44 Sodium 141 Potassium 5.0 Chloride 110 Carbon Dioxide 20 L Anion Gap 16 BUN 61 H Creatinine 3.2 H Est GFR ( Amer) 24 Est GFR (Non-Af Amer) 20 POC Glucose (mg/dL) Random Glucose 57 L Hemoglobin A1c 8.0 H Calcium 8.8 Total Bilirubin 0.8 AST 24 ALT 26 Alkaline Phosphatase 57 Total Protein 7.2 Albumin 3.6 Globulin 3.7 Albumin/Globulin Ratio 1.0 L Triglycerides 404 H Cholesterol 200 LDL Cholesterol Direct 101 HDL Cholesterol 20 L Thyroxine (T4) 7.7 TSH 3rd Generation 2.69 01/11/17 01/11/17 01/11/17 07:33 11:13 17:03 Sodium Potassium Chloride Carbon Dioxide Anion Gap BUN Creatinine Est GFR ( Amer) Est GFR (Non-Af Amer) POC Glucose (mg/dL) 53 L 186 H 80 Random Glucose Hemoglobin A1c Calcium Total Bilirubin AST ALT Alkaline Phosphatase Total Protein Albumin Globulin Albumin/Globulin Ratio Triglycerides Cholesterol LDL Cholesterol Direct HDL Cholesterol Thyroxine (T4) TSH 3rd Generation 01/11/17 21:34 Sodium Potassium Chloride Carbon Dioxide Anion Gap BUN Creatinine Est GFR ( Amer) Est GFR (Non-Af Amer) POC Glucose (mg/dL) 221 H Random Glucose Hemoglobin A1c Calcium Total Bilirubin AST ALT Alkaline Phosphatase Total Protein Albumin Globulin Albumin/Globulin Ratio Triglycerides Cholesterol LDL Cholesterol Direct HDL Cholesterol Thyroxine (T4) TSH 3rd Generation Attending/Attestation - Attestation I have personally seen and examined this patient.: Yes I have fully participated in the care of the patient.: Yes I have reviewed all pertinent clinical information: Yes Notes (Text): This is an addendum to GI progress report dictated by Paula Edmonds APN.The patient was seen and examined earlier. Medical records, lab studies, imagings were reviewed. Last 24 hours events reviewed. Agreed with the above treatment plan as outlined in Paula Edmonds APN's notes the with the addition of the following No further episodes of diarrhea noticed in on examination abdomen soft no tenderness CT requested. It was reviewed showed only gallstones Need elective colonoscopic evaluation. [facility] [place]. Stool for C. difficile has been negative 01/11/17 23:54
--- NOTE | 2017-01-11 14:52 | PN ---
SUBJECTIVE: The patient is currently seen on 5R. He is sitting comfortable in bed. He still complaining of some mild discomfort in his left knee. He has no diarrhea. He appears to have stable renal parameters with a BUN in the low 60 range and a creatinine in the low 3 range. He states he will likely need physical therapy for his knee pain. The patient was diagnosed with gout. MEDICATIONS: Medication list reviewed. The patient is currently on aspirin, Coreg, Flomax, Levemir, ketoconazole, Plavix, Prandin, Protonix, sodium bicarbonate, Synthroid, Tylenol, and Zestril. He is presently off colchicine. OBJECTIVE: INTAKE AND OUTPUT: Intake 480, output 200. VITAL SIGNS: Blood pressure 113/80, temperature 97.9, respiratory rate 18 with a pulse of 68. HEENT: Normocephalic, atraumatic. Conjunctivae pink. Sclerae nonicteric. NECK: Supple. No neck vein distention. CHEST: Clear to auscultation and percussion. No rales or rhonchi. No wheezing. CARDIOVASCULAR: Shows a normal S1 and S2. Mitral regurgitation. No S3. No S4. No rub. ABDOMEN: Soft. Moderate obesity. Bowel sounds normal. No rebound. No guarding. No masses. EXTREMITIES: Show no lower extremity edema, has a chronic stasis dermatitis of his distal lower extremity. Diminished lower extremity pulses are 1 to 2+. LABORATORY DATA And IMAGING: CBC from the showed white blood cell count of 17,000 with a hemoglobin of 14.6, platelet count is 423,000. Chemistries from today show sodium 141, potassium 5.0, chloride 110 with a CO2 of 20, BUN 61 with a creatinine of 3.2. Glucose is 57. Calcium is 8.8. Uric acid level was 12.5. Albumin is 3.6. Thyroid function tests are normal. Microbiology: Blood cultures are negative at 24 hours. Stool for C. diff is negative. ASSESSMENT: 1. Chronic kidney disease stage IV with non-nephrotic range proteinuria. In the past, the patient had a creatinine clearance of 25 mL per minute with 874 mg of protein in the urine dating back to the spring. During his most recent admission, he was admitted with abdominal pain, diarrhea, and decreased oral intake. He had an elevated BUN and creatinine above these levels. With appropriate hydration and resolution of the diarrhea. His BUN and creatinine fell to baseline range. His baseline BUN is in the 50-60 range with a creatinine in the upper 2 to level 3 range. He appears to be stable at this range now and no IV fluids are necessary. 2. Left knee pain leukocytosis possibly secondary to gouty arthritis. The patient is being seen by orthopedics. 3. History of [id number] diabetes mellitus. The patient's glucose level is acceptable. He is on sliding scale insulin. 4. History of hypertension. Blood pressure control is acceptable on present medication. 5. History of atherosclerotic heart disease, status post automatic implantable cardioverter-defibrillator with mitral regurgitation. This appears to be stable. 6. History of hypothyroidism, thyroid function tests are normal, on thyroid replacement therapy. PLAN: 1. From a renal standpoint, the patient appears to be stable. I would not start IV fluid hydration in light of the fact that he has a tendency to develop lower extremity edema and diuretic therapy would be necessary which would likely elevate the BUN and creatinine. 2. Monitor cultures, all negative in light of the white blood cell count elevation. The patient is afebrile. 3. Orthopedic followup for his left knee pain in progress. 4. Continue renal diet. 5. Check phosphorus levels and as necessary start phosphorous binders. 6. Continue to monitor accurate Is and Os and daily weights. 7. Continue to monitor daily labs. Rom Winston MD
--- NOTE | 2017-01-11 17:09 | CT ---
PROCEDURE: CT Abdomen and Pelvis without intravenous contrast HISTORY: diarrhea COMPARISON: 11/27/2015 TECHNIQUE: Without contrast.. Contrast Dose: 0 Radiation dose: Total exam DLP = 1187.03 mGy-cm. This CT exam was performed using one or more of the following dose reduction techniques: Automated exposure control, adjustment of the mA and/or kV according to patient size, and/or use of iterative reconstruction technique. FINDINGS: Evaluation of the upper abdomen limited due to respiratory motion artifact. LOWER THORAX: Chronic mosaic attenuation essentially unchanged compared to prior CT. Cardiomegaly. AICD. . LIVER: Normal size and contour. Punctate calcifications, possibly granulomatous. There are also vascular calcifications seen lynn hepatis region. No mass. No biliary dilatation GALLBLADDER AND BILE DUCTS: Cholelithiasis. No mural thickening or pericholecystic fluid. PANCREAS: Unremarkable. No gross lesion or ductal dilatation. SPLEEN: Normal size. No mass. Punctate calcifications consistent with old granulomatous disease. ADRENALS: Unremarkable. No mass. KIDNEYS AND URETERS: Mild bilateral renal atrophy. Small cortical cyst mid right kidney, unchanged. No renal calculus or hydronephrosis. VASCULATURE: Unremarkable. No aortic aneurysm. BOWEL: No abnormal bowel loops. No bowel obstruction. APPENDIX: Not identified. No secondary findings to suggest acute appendicitis. PERITONEUM: Umbilical hernia containing only mesenteric fat, unchanged from previous. No ascites. LYMPH NODES: Unremarkable. No enlarged lymph nodes. BLADDER: Poorly distended. Grossly unremarkable. REPRODUCTIVE: Normal prostate. BONES: No acute fracture. OTHER FINDINGS: None. IMPRESSION: Cholelithiasis without evidence of cholecystitis. No abnormality of the bowel. Mild renal atrophy bilaterally. Additional findings as above.
[2017-01-11] MEDS: Insulin Detemir 100 units/ml Vial (Levemir) SC SCH (22:05)
[2017-01-12 06:40] LABS: BASO # 0.13 K/mm3 (0.0-2.0); BASO % 1.1 % (0.0-3.0); EOS # 1.3 (0.0-0.7); EOS % 10.5 % (1.5-5.0); GRAN # 7.67 (1.4-6.5); GRAN % 64.7 % (50.0-68.0); HEMATOCRIT 42.6 % (42.0-52.0); LYMPH # 1.8 (1.2-3.4); LYMPH % 14.7 % (22.0-35.0); MEAN CELL VOLUME 89.3 fl (80.0-105.0); MEAN CORPUSCULAR HGB CONC 33.6 g/dl (31.0-37.0); MEAN PLATELET VOLUME 10.5 fl (7.0-11.0); MONO # 1.1 (0.1-0.6); RED CELL DISTRIBUTION WIDTH 14.2 % (11.5-14.5); WHITE BLOOD COUNT 11.9 10^3/ul (4.5-11.0)
[2017-01-12 08:34] LABS: ALB/GLOB RATIO 0.9 (1.1-1.8); BILIRUBIN,TOTAL 0.7 mg/dL (0.2-1.3); CALCIUM 9.1 mg/dL (8.4-10.5); MAGNESIUM 1.9 mg/dL (1.7-2.2); POTASSIUM 5.4 mmol/L (3.6-5.0); TOTAL PROTEIN 6.9 g/dL (5.8-8.3)
[2017-01-12] MEDS ORDERED: Sod Polystyrene Sulf 15 gm/60 ml Susp PO ONE (09:11)
[2017-01-12] MEDS: Levothyroxine 125 MCG TAB PO SCH (10:24)
--- NOTE | 2017-01-12 10:24 | PN ---
ENDO FOLLOWUP NOTE LOCATION: Room 568. This is a 61-year-old male with recent uncontrolled type 2 insulin-requiring diabetes with extremes of glycemic fluctuations and continues to have episodic bouts of symptomatic hypoglycemia despite the recent dose adjustment undertaken thereof. His oral intake remains quite variable as per the nursing staff as noted. His latest glucose levels have ranged from 53 to 186 mg/dL. It was 83 at bedtime last night. His hemoglobin A1c is 8.0% which is actually still elevated and indicative of suboptimal metabolic control of his diabetic condition. His latest chemistry showed a BUN of 61, sodium 141, potassium 5.0, chloride 110, CO2 of 20, glucose 57, and creatinine 3.2. With the presence of progressive renal insufficiency and advanced azotemia, would expect a much lesser insulin requirements at this time as noted. So we will modify once again and lower his basal insulin with Levemir to be given as 6 units subcu at bedtime daily to start tonight. We will continue his Prandin given as 1 mg p.o. t.i.d. before meals as ordered and this really is a very low-dose oral hypoglycemic therapy which is also short acting and with a very short half-life as noted and is ideal for patients with progressive renal insufficiency. We will obtain serial chemistries and supplement accordingly needed. We will follow. Heydi Lopez MD
[2017-01-12] MEDS: Pantoprazole 40 mg EC Tab PO SCH (10:25)
--- NOTE | 2017-01-12 12:08 | CP.PCM.PN ---
<Paula Edmonds - Last Filed: 01/12/17 12:08> Subjective - Date & Time of Evaluation Date of Evaluation: 01/12/17 Time of Evaluation: 12:03 - Subjective Subjective: S&E at bedside, OOB to chair, having formed stool now, denies melena or BRBPR. No N/V or abdominal pain. Tolerating oral intake, Sent for Ct scan of abdomen and pelvis. Report reviewed, no acute abdominal findings, found gallstones, cholecytitis. Objective - Vital Signs/Intake and Output Vital Signs (last 24 hours): Temp Pulse Resp BP Pulse Ox 97.4 F L 69 20 115/78 98 01/12/17 08:00 01/12/17 10:25 01/12/17 08:00 01/12/17 10:25 01/12/17 08:00 Intake and Output: 01/12/17 01/12/17 06:59 18:59 Intake Total 540 Output Total 500 Balance 40 - Medications Medications: Current Medications Acetaminophen (Tylenol 325mg Tab) 650 mg PO Q6H PRN PRN Reason: Pain, Mild (1-3) Acetaminophen (Tylenol 325mg Tab) 650 mg PO Q6H PRN PRN Reason: Fever >100.5 F Aspirin (Aspirin Chewable) 81 mg PO DAILY [facility] Last Admin: 01/12/17 10:27 Dose: 81 mg Carvedilol (Coreg) 25 mg PO BID [facility] Last Admin: 01/12/17 10:25 Dose: 25 mg Clopidogrel Bisulfate (Plavix) 75 mg PO DAILY [facility] Last Admin: 01/12/17 10:25 Dose: 75 mg Insulin Detemir (Levemir) 6 unit SC HS [facility] Last Admin: 01/11/17 22:05 Dose: 6 unit Ketoconazole (Nizoral) 0 gm TOP BID [facility] Levothyroxine Sodium (Synthroid) 125 mcg PO DAILY [facility] Last Admin: 01/12/17 10:24 Dose: 125 mcg Lisinopril (Zestril) 10 mg PO DAILY [facility] Last Admin: 01/12/17 10:24 Dose: 10 mg Pantoprazole Sodium (Protonix Ec Tab) 40 mg PO DAILY [facility] Last Admin: 01/12/17 10:25 Dose: 40 mg Repaglinide (Prandin) 1 mg PO AC [facility] Last Admin: 01/12/17 08:26 Dose: Not Given Sodium Bicarbonate (Sodium Bicarbonate Tab) 650 mg PO BID [facility] Last Admin: 01/12/17 10:28 Dose: 650 mg Tamsulosin HCl (Flomax) 0.4 mg PO DAILY [facility] Last Admin: 01/12/17 10:24 Dose: 0.4 mg - Labs Labs: 01/12/17 06:30 01/12/17 08:00 PT 12.0 SECONDS (9.4-12.5) 01/09/17 12:15 INR 1.09 (0.93-1.08) H 01/09/17 12:15 APTT 31.8 Seconds (25.1-36.5) 01/09/17 12:15 - Constitutional Appears: In Acute Distress - Eye Exam Eye Exam: Normal appearance. absent: Scleral icterus - ENT Exam ENT Exam: Mucous Membranes Moist - Neck Exam Neck Exam: Normal Inspection - Respiratory Exam Respiratory Exam: NORMAL BREATHING PATTERN. absent: Respiratory Distress - Cardiovascular Exam Cardiovascular Exam: +S1, +S2 - GI/Abdominal Exam GI & Abdominal Exam: Soft, Normal Bowel Sounds. absent: Guarding, Tenderness, Organomegaly, Rebound - Extremities Exam Extremities Exam: absent: Calf Tenderness - Neurological Exam Neurological Exam: Alert, Awake, Oriented x3 Assessment and Plan - Assessment and Plan (Free Text) Assessment: Assessment: Diarrhea, now resolved differential gastroenteritis Acute renal failure History of coronary artery disease status post stent placement 2 CHF Developmental disability DJD status post arthrocentesis and ensure the articular injection of left knee Plan: follow-up stool culture, still pending continue Protonix On Plavix and aspirin diet as tolerated Spoke to patient regarding elective colonoscopic evaluation Seen and discussed with Dr. Levy. <Temo Levy V - Last Filed: 01/12/17 23:57> Objective - Vital Signs/Intake and Output Vital Signs (last 24 hours): Temp Pulse Resp BP Pulse Ox 97.5 F L 68 20 111/76 99 01/12/17 17:11 01/12/17 17:46 01/12/17 17:11 01/12/17 17:46 01/12/17 17:11 Intake and Output: 01/12/17 01/13/17 18:59 06:59 Intake Total 360 Output Total 400 Balance -40 - Medications Medications: Current Medications Acetaminophen (Tylenol 325mg Tab) 650 mg PO Q6H PRN PRN Reason: Pain, Mild (1-3) Acetaminophen (Tylenol 325mg Tab) 650 mg PO Q6H PRN PRN Reason: Fever >100.5 F Aspirin (Aspirin Chewable) 81 mg PO DAILY [facility] Last Admin: 01/12/17 10:27 Dose: 81 mg Carvedilol (Coreg) 25 mg PO BID [facility] Last Admin: 01/12/17 17:46 Dose: 25 mg Clopidogrel Bisulfate (Plavix) 75 mg PO DAILY [facility] Last Admin: 01/12/17 10:25 Dose: 75 mg Colchicine (Colocrys) 0.6 mg PO BID [facility] Last Admin: 01/12/17 17:45 Dose: 0.6 mg Insulin Detemir (Levemir) 6 unit SC HS [facility] Last Admin: 01/12/17 21:54 Dose: 6 unit Ketoconazole (Nizoral) 0 gm TOP BID [facility] Last Admin: 01/12/17 17:47 Dose: 1 applic Levothyroxine Sodium (Synthroid) 125 mcg PO DAILY [facility] Last Admin: 01/12/17 10:24 Dose: 125 mcg Pantoprazole Sodium (Protonix Ec Tab) 40 mg PO DAILY [facility] Last Admin: 01/12/17 10:25 Dose: 40 mg Repaglinide (Prandin) 1 mg PO AC [facility] Last Admin: 01/12/17 17:45 Dose: 1 mg Sodium Bicarbonate (Sodium Bicarbonate Tab) 650 mg PO BID [facility] Last Admin: 01/12/17 17:45 Dose: 650 mg Tamsulosin HCl (Flomax) 0.4 mg PO DAILY [facility] Last Admin: 01/12/17 10:24 Dose: 0.4 mg - Labs Labs: 01/12/17 06:30 01/12/17 08:00 PT 12.0 SECONDS (9.4-12.5) 01/09/17 12:15 INR 1.09 (0.93-1.08) H 01/09/17 12:15 APTT 31.8 Seconds (25.1-36.5) 01/09/17 12:15 Attending/Attestation - Attestation I have personally seen and examined this patient.: Yes I have fully participated in the care of the patient.: Yes I have reviewed all pertinent clinical information, including history, physical exam and plan: Yes Notes (Text): This is an addendum to GI progress report dictated by Paula Edmonds APN.The patient was seen and examined earlier. Medical records, lab studies, imagings were reviewed. Last 24 hours events reviewed. Agreed with the above treatment plan as outlined in Paula Edmonds APN's notes the with the addition of the following On examination abdomen soft no tenderness Tolerating the diet would recommend elective colonoscopy evaluation 01/12/17 23:55
--- NOTE | 2017-01-12 18:04 | CP.PCM.PN ---
Subjective - Date & Time of Evaluation Date of Evaluation: 01/12/17 Time of Evaluation: 09:30 - Subjective Subjective: less knee pain today, ambulating with walker, denies leg weakness, no diarrhea Objective - Vital Signs/Intake and Output Vital Signs (last 24 hours): Temp Pulse Resp BP Pulse Ox 97.5 F L 68 20 111/76 99 01/12/17 17:11 01/12/17 17:46 01/12/17 17:11 01/12/17 17:46 01/12/17 17:11 Intake and Output: 01/12/17 01/12/17 06:59 18:59 Intake Total 540 Output Total 500 Balance 40 - Medications Medications: Current Medications Acetaminophen (Tylenol 325mg Tab) 650 mg PO Q6H PRN PRN Reason: Pain, Mild (1-3) Acetaminophen (Tylenol 325mg Tab) 650 mg PO Q6H PRN PRN Reason: Fever >100.5 F Aspirin (Aspirin Chewable) 81 mg PO DAILY [facility] Last Admin: 01/12/17 10:27 Dose: 81 mg Carvedilol (Coreg) 25 mg PO BID [facility] Last Admin: 01/12/17 17:46 Dose: 25 mg Clopidogrel Bisulfate (Plavix) 75 mg PO DAILY [facility] Last Admin: 01/12/17 10:25 Dose: 75 mg Colchicine (Colocrys) 0.6 mg PO BID [facility] Last Admin: 01/12/17 17:45 Dose: 0.6 mg Insulin Detemir (Levemir) 6 unit SC HS [facility] Last Admin: 01/11/17 22:05 Dose: 6 unit Ketoconazole (Nizoral) 0 gm TOP BID [facility] Last Admin: 01/12/17 17:47 Dose: 1 applic Levothyroxine Sodium (Synthroid) 125 mcg PO DAILY [facility] Last Admin: 01/12/17 10:24 Dose: 125 mcg Pantoprazole Sodium (Protonix Ec Tab) 40 mg PO DAILY [facility] Last Admin: 01/12/17 10:25 Dose: 40 mg Repaglinide (Prandin) 1 mg PO AC [facility] Last Admin: 01/12/17 17:45 Dose: 1 mg Sodium Bicarbonate (Sodium Bicarbonate Tab) 650 mg PO BID [facility] Last Admin: 01/12/17 17:45 Dose: 650 mg Tamsulosin HCl (Flomax) 0.4 mg PO DAILY [facility] Last Admin: 01/12/17 10:24 Dose: 0.4 mg - Labs Labs: 01/12/17 06:30 01/12/17 08:00 PT 12.0 SECONDS (9.4-12.5) 01/09/17 12:15 INR 1.09 (0.93-1.08) H 01/09/17 12:15 APTT 31.8 Seconds (25.1-36.5) 01/09/17 12:15 - Respiratory Exam Respiratory Exam: Clear to Ausculation Bilateral, NORMAL BREATHING PATTERN - Cardiovascular Exam Cardiovascular Exam: Clicks - GI/Abdominal Exam GI & Abdominal Exam: Soft, Normal Bowel Sounds - Neurological Exam Neurological Exam: Abnormal Gait, Alert, Awake - Skin Skin Exam: Dry, Warm Assessment and Plan (1) Diarrhea Status: Acute (2) Gouty arthritis Status: Acute (3) Pain, lower leg Status: Acute (4) Chronic kidney disease Status: Chronic - Assessment and Plan (Free Text) Plan: continue physical therapy, CT abd/pelvis significant only for gallstones, no cholecystitis, will DC PATTY due to hyperkalemia, monitor lytes, social work for discharge planning
[2017-01-12] MEDS: Insulin Detemir 100 units/ml Vial (Levemir) SC SCH (21:54)
[2017-01-13 07:20] LABS: ALB/GLOB RATIO 0.9 (1.1-1.8); BILIRUBIN,TOTAL 0.7 mg/dL (0.2-1.3); CALCIUM 8.5 mg/dL (8.4-10.5); POTASSIUM 5.3 mmol/L (3.6-5.0); TOTAL PROTEIN 7.3 g/dL (5.8-8.3)
--- NOTE | 2017-01-13 08:53 | PN ---
ENDO FOLLOWUP NOTE LOCATION: Room 568. This is a 61-year-old male with recent uncontrolled type 2 insulin-requiring diabetes, now being followed closely for metabolic management. He continues to have fasting hypoglycemic levels as noted with overt neuroglycopenic and hyperadrenergic manifestations of the same. His glucose levels have ranged from 79 to 124 mg/dL. It was 80 to 221 at bedtime last night of note. His latest chemistry showed a BUN of 54, sodium 138, potassium 5.4, chloride 106, CO2 of 19, glucose 75 and creatinine 3.1. With the progressive azotemia and advancing renal failure, we would expect much lower insulin requirements at this time. With episodic bouts of symptomatic hypoglycemia related to impaired clearance of her insulin injection was given. So at this time, we can discontinue the Levemir given at 6 units subcu at bedtime daily as ordered. We will titrate his Prandin to 2 mg p.o. t.i.d. with meals as ordered. We will hold off any coverage scale for now as there is glycemic fluctuations. We will follow up with you. Heydi Lopez MD
--- NOTE | 2017-01-13 08:53 | PN ---
DATE: 01/12/2017 SUBJECTIVE: The patient is seen sitting in chair. He is awake, he is alert. He is complaining of pain in his left knee. He is complaining of difficulty ambulating. He is requesting a walker. PHYSICAL EXAMINATION: GENERAL: Obese elderly male, sitting in chair. VITAL SIGNS: Blood pressure 115/78, heart rate 69, respiratory rate 20, temperature 97.4. HEENT: Normocephalic, atraumatic. NECK: Supple, no JVD. LUNGS: Bilateral equal air entry, rales. CARDIAC: S1 and S2, regular rate and rhythm, no murmur, no rub. ABDOMEN: Obese, distended, soft, nontender, bowel sounds present. EXTREMITIES: No lower extremity edema. INTAKE AND OUTPUT: 1140/700. LABORATORY DATA: WBC 11.9, hemoglobin 14, hematocrit 42, platelets 369. Sodium 138, potassium 5.4, chloride 106, CO2 of 19, BUN 64, creatinine 3.1, glucose 75, calcium 9.1, phosphorus 5.0, magnesium 1.9, albumin 3.3. Stool culture negative. Blood cultures no growth. CT of the abdomen and pelvis, cholelithiasis without cholecystitis, mild renal atrophy bilaterally. MEDICATIONS: Aspirin, Coreg 25 b.i.d., Flomax, Levemir, Nizoral, Plavix, Prandin. Protonix, sodium bicarbonate, Synthroid, Tylenol, Zestril, Kayexalate 15 g given this morning. ASSESSMENT AND PLAN: 1. Chronic kidney disease stage IV, stable, resolved acute kidney injury. 2. Left knee pain, leukocytosis. 3. Non-insulin dependent diabetes mellitus. 4. Hypertension. 5. Coronary artery disease/automatic implantable cardioverter defibrillator. 6. Hypothyroidism. PLAN: 1. Renal function is stable. 2. Awaiting orthopedic followup. 3. Physical therapy. 4. Severe hyperuricemia, restart colchicine. We will need uric acid lowering therapy once acute gout is controlled. Kaity Helms MD
[2017-01-13] MEDS: Levothyroxine 125 MCG TAB PO SCH (09:34)
[2017-01-13] MEDS: Pantoprazole 40 mg EC Tab PO SCH (09:34)
--- NOTE | 2017-01-13 11:28 | CP.PCM.PN ---
Subjective - Date & Time of Evaluation Date of Evaluation: 01/13/17 Time of Evaluation: 10:45 - Subjective Subjective: Neurology progress note for Dr. Gamboa's service Patient seen and examined at bedside. No acute overnight events or new complaints. He is being seen by orthopedic surgery for LLE weakness/knee pain. Denies chest pain, palpitations, SOB. Objective - Vital Signs/Intake and Output Vital Signs (last 24 hours): Temp Pulse Resp BP Pulse Ox 97.9 F 67 22 114/74 97 01/13/17 08:00 01/13/17 08:00 01/13/17 08:00 01/13/17 08:00 01/13/17 08:00 Intake and Output: 01/13/17 01/13/17 06:59 18:59 Intake Total 540 Output Total 1250 Balance -710 - Medications Medications: Current Medications Acetaminophen (Tylenol 325mg Tab) 650 mg PO Q6H PRN PRN Reason: Pain, Mild (1-3) Acetaminophen (Tylenol 325mg Tab) 650 mg PO Q6H PRN PRN Reason: Fever >100.5 F Aspirin (Aspirin Chewable) 81 mg PO DAILY [facility] Last Admin: 01/13/17 09:35 Dose: 81 mg Carvedilol (Coreg) 25 mg PO BID [facility] Last Admin: 01/13/17 09:34 Dose: 25 mg Clopidogrel Bisulfate (Plavix) 75 mg PO DAILY [facility] Last Admin: 01/13/17 09:34 Dose: 75 mg Colchicine (Colocrys) 0.6 mg PO BID [facility] Last Admin: 01/13/17 09:34 Dose: 0.6 mg Insulin Detemir (Levemir) 6 unit SC HS [facility] Last Admin: 01/12/17 21:54 Dose: 6 unit Ketoconazole (Nizoral) 0 gm TOP BID [facility] Last Admin: 01/13/17 09:35 Dose: 1 applic Levothyroxine Sodium (Synthroid) 125 mcg PO DAILY [facility] Last Admin: 01/13/17 09:34 Dose: 125 mcg Pantoprazole Sodium (Protonix Ec Tab) 40 mg PO DAILY [facility] Last Admin: 01/13/17 09:34 Dose: 40 mg Repaglinide (Prandin) 1 mg PO AC [facility] Last Admin: 01/13/17 08:21 Dose: Not Given Sodium Bicarbonate (Sodium Bicarbonate Tab) 650 mg PO BID [facility] Last Admin: 01/13/17 09:34 Dose: 650 mg Tamsulosin HCl (Flomax) 0.4 mg PO DAILY [facility] Last Admin: 01/13/17 09:35 Dose: 0.4 mg - Labs Labs: 01/12/17 06:30 01/13/17 06:58 PT 12.0 SECONDS (9.4-12.5) 01/09/17 12:15 INR 1.09 (0.93-1.08) H 01/09/17 12:15 APTT 31.8 Seconds (25.1-36.5) 01/09/17 12:15 - Constitutional Appears: No Acute Distress - Head Exam Head Exam: ATRAUMATIC, NORMAL INSPECTION, NORMOCEPHALIC - Eye Exam Eye Exam: EOMI, PERRL - ENT Exam ENT Exam: Mucous Membranes Moist - Respiratory Exam Respiratory Exam: absent: Rales, Rhonchi, Wheezes - Cardiovascular Exam Cardiovascular Exam: RRR, +S1, +S2. absent: Clicks, JVD, Rubs, Murmur - GI/Abdominal Exam GI & Abdominal Exam: Soft. absent: Distended, Firm, Guarding, Rigid, Rebound - Neurological Exam Neurological Exam: Alert, Awake, CN II-XII Intact, Oriented x3 - Psychiatric Exam Psychiatric exam: Normal Affect, Normal Mood - Skin Skin Exam: Dry, Intact, Normal Color, Warm Assessment and Plan - Assessment and Plan (Free Text) Plan: 61yo male with history of mild mental retardation, CHF s/p ICD, CAD s/p stents to LAD 08/2013, CKD stage 4, DM type 2, hypertension and hypothyroidism presents c/o LLE weakness 1. LLE weakness 2. CHF 3. CAD 4. CKD stage 4 5. DM type 2 6. Hypetension 7. Hypothyroidism -No focal neurologic deficits on examination; LLE weakness likely secondary to left knee pain. He is currently being seen by orthopedic surgery; recommend f/u recommedations -CT head reviewed which revealed no acute intracranial abnormalities -Lumbar spine CT reviewed; revealed L4-L5 mild facet arthropathy, L5-S1 disc degeneration; no evidence of spinal stenosis or vertebral compression fractures ; see full report -Continue with physical therapy as tolerated -Continue current medical management as per primary team -Further recommendations as per Dr. Gamboa Patient seen and case discussed/reviewed with attending, Dr. Gamboa
--- NOTE | 2017-01-13 13:11 | CP.PCM.PN ---
<Paula Edmonds - Last Filed: 01/13/17 13:12> Subjective - Date & Time of Evaluation Date of Evaluation: 01/13/17 Time of Evaluation: 10:30 - Subjective Subjective: Seen and examined at the bedside earlier today, the patient received Kayexalate and had a loose bowel movement, no reports of bleeding,abdominal pain ,nausea, or vomiting. Tolerating oral intake. Objective - Vital Signs/Intake and Output Vital Signs (last 24 hours): Temp Pulse Resp BP Pulse Ox 97.9 F 67 22 114/74 97 01/13/17 08:00 01/13/17 08:00 01/13/17 08:00 01/13/17 08:00 01/13/17 08:00 Intake and Output: 01/13/17 01/13/17 06:59 18:59 Intake Total 540 Output Total 1250 Balance -710 - Medications Medications: Current Medications Acetaminophen (Tylenol 325mg Tab) 650 mg PO Q6H PRN PRN Reason: Pain, Mild (1-3) Acetaminophen (Tylenol 325mg Tab) 650 mg PO Q6H PRN PRN Reason: Fever >100.5 F Allopurinol (Zyloprim) 200 mg PO DAILY [facility] Last Admin: 01/13/17 12:53 Dose: 200 mg Aspirin (Aspirin Chewable) 81 mg PO DAILY [facility] Last Admin: 01/13/17 09:35 Dose: 81 mg Carvedilol (Coreg) 25 mg PO BID [facility] Last Admin: 01/13/17 09:34 Dose: 25 mg Clopidogrel Bisulfate (Plavix) 75 mg PO DAILY [facility] Last Admin: 01/13/17 09:34 Dose: 75 mg Colchicine (Colocrys) 0.6 mg PO BID [facility] Last Admin: 01/13/17 09:34 Dose: 0.6 mg Insulin Detemir (Levemir) 6 unit SC HS [facility] Last Admin: 01/12/17 21:54 Dose: 6 unit Ketoconazole (Nizoral) 0 gm TOP BID [facility] Last Admin: 01/13/17 09:35 Dose: 1 applic Levothyroxine Sodium (Synthroid) 125 mcg PO DAILY [facility] Last Admin: 01/13/17 09:34 Dose: 125 mcg Pantoprazole Sodium (Protonix Ec Tab) 40 mg PO DAILY [facility] Last Admin: 01/13/17 09:34 Dose: 40 mg Repaglinide (Prandin) 1 mg PO AC [facility] Last Admin: 01/13/17 12:22 Dose: Not Given Sodium Bicarbonate (Sodium Bicarbonate Tab) 650 mg PO BID [facility] Last Admin: 01/13/17 09:34 Dose: 650 mg Tamsulosin HCl (Flomax) 0.4 mg PO DAILY [facility] Last Admin: 01/13/17 09:35 Dose: 0.4 mg - Labs Labs: 01/12/17 06:30 01/13/17 06:58 PT 12.0 SECONDS (9.4-12.5) 01/09/17 12:15 INR 1.09 (0.93-1.08) H 01/09/17 12:15 APTT 31.8 Seconds (25.1-36.5) 01/09/17 12:15 - Constitutional Appears: No Acute Distress - Head Exam Head Exam: NORMOCEPHALIC - Eye Exam Eye Exam: Normal appearance. absent: Scleral icterus - ENT Exam ENT Exam: Mucous Membranes Moist - Neck Exam Neck Exam: Normal Inspection - Respiratory Exam Respiratory Exam: Decreased Breath Sounds, NORMAL BREATHING PATTERN. absent: Rales, Wheezes, Respiratory Distress - Cardiovascular Exam Cardiovascular Exam: +S1, +S2 - GI/Abdominal Exam GI & Abdominal Exam: Soft, Normal Bowel Sounds. absent: Distended, Guarding, Tenderness, Rebound - Extremities Exam Extremities Exam: Normal Capillary Refill. absent: Calf Tenderness - Neurological Exam Neurological Exam: Alert, Awake, Oriented x3 - Skin Skin Exam: Dry, Warm Assessment and Plan - Assessment and Plan (Free Text) Assessment: Assessment: Diarrhea, now resolved differential gastroenteritis Acute renal failure Hyperkalemia, s/p kayexalate History of coronary artery disease status post stent placement 2 CHF Developmental disability DJD status post arthrocentesis and ensure the articular injection of left knee Plan: Stool culture, negative continue Protonix On Plavix and aspirin diet as tolerated Spoke to patient regarding elective colonoscopic evaluation Seen and discussed with Dr. Levy. <Temo Levy V - Last Filed: 01/13/17 23:48> Objective - Vital Signs/Intake and Output Vital Signs (last 24 hours): Temp Pulse Resp BP Pulse Ox 97.5 F L 68 20 106/71 97 01/13/17 16:03 01/13/17 16:03 01/13/17 16:03 01/13/17 16:03 01/13/17 16:03 Intake and Output: 01/13/17 01/14/17 18:59 06:59 Intake Total 480 Output Total 400 Balance 80 - Medications Medications: Current Medications Acetaminophen (Tylenol 325mg Tab) 650 mg PO Q6H PRN PRN Reason: Pain, Mild (1-3) Acetaminophen (Tylenol 325mg Tab) 650 mg PO Q6H PRN PRN Reason: Fever >100.5 F Allopurinol (Zyloprim) 200 mg PO DAILY [facility] Last Admin: 01/13/17 12:53 Dose: 200 mg Aspirin (Aspirin Chewable) 81 mg PO DAILY [facility] Last Admin: 01/13/17 09:35 Dose: 81 mg Carvedilol (Coreg) 25 mg PO BID [facility] Last Admin: 01/13/17 17:02 Dose: 25 mg Clopidogrel Bisulfate (Plavix) 75 mg PO DAILY [facility] Last Admin: 01/13/17 09:34 Dose: 75 mg Colchicine (Colocrys) 0.6 mg PO BID [facility] Last Admin: 01/13/17 17:02 Dose: 0.6 mg Insulin Detemir (Levemir) 6 unit SC HS [facility] Last Admin: 01/13/17 22:19 Dose: Not Given Ketoconazole (Nizoral) 0 gm TOP BID [facility] Last Admin: 01/13/17 17:03 Dose: 1 applic Levothyroxine Sodium (Synthroid) 125 mcg PO DAILY [facility] Last Admin: 01/13/17 09:34 Dose: 125 mcg Pantoprazole Sodium (Protonix Ec Tab) 40 mg PO DAILY [facility] Last Admin: 01/13/17 09:34 Dose: 40 mg Repaglinide (Prandin) 1 mg PO AC [facility] Last Admin: 01/13/17 16:38 Dose: Not Given Sodium Bicarbonate (Sodium Bicarbonate Tab) 650 mg PO BID [facility] Last Admin: 01/13/17 17:02 Dose: 650 mg Tamsulosin HCl (Flomax) 0.4 mg PO DAILY [facility] Last Admin: 01/13/17 09:35 Dose: 0.4 mg - Labs Labs: 01/12/17 06:30 01/13/17 06:58 PT 12.0 SECONDS (9.4-12.5) 01/09/17 12:15 INR 1.09 (0.93-1.08) H 01/09/17 12:15 APTT 31.8 Seconds (25.1-36.5) 01/09/17 12:15 Attending/Attestation - Attestation I have personally seen and examined this patient.: Yes I have fully participated in the care of the patient.: Yes I have reviewed all pertinent clinical information, including history, physical exam and plan: Yes Notes (Text): This is an addendum to GI progress report dictated by Paula Edmonds APN.The patient was seen and examined earlier. Medical records, lab studies, imagings were reviewed. Last 24 hours events reviewed. Agreed with the above treatment plan as outlined in Paula Edmonds APN's notes the with the addition of the following Patient comfortable on examination abdomen soft. There is no tenderness Discussed with Dr. Asa Meyer. Would consider colonoscopy as an outpatient Thank you very much allowing us to participate in the care of the patient 01/13/17 23:47
--- NOTE | 2017-01-13 14:11 | PN ---
ENDO FOLLOWUP NOTE LOCATION: In room 568. SUBJECTIVE: This is a 61-year-old male with recent uncontrolled type 2 insulin-requiring diabetes, now being followed closely for metabolic management. His glycemic levels are fluctuating because also of the variability of his oral intake as noted thereof. His glucose levels today have ranged from 83 to 116 mg/dL. It was 172 to 345 last night as noted. The latest chemistry showed a BUN of 62, sodium 139, potassium 5.3, chloride 108, CO2 of 21, glucose 96 and creatinine 2.9. So at this time, we will continue the same basal insulin to allow for dose equilibration and keep him on the Levemir given as 6 units subcu at bedtime daily as ordered. We will continue the Prandin given as 1 mg p.o. t.i.d. before meals as ordered. We will titrate incrementally as indicated to optimize metabolic control. We will obtain serum chemistries and supplement accordingly as needed. We will follow with you. Heydi Lopez MD
--- NOTE | 2017-01-13 17:00 | CP.PCM.PN ---
Subjective - Date & Time of Evaluation Date of Evaluation: 01/13/17 Time of Evaluation: 09:30 - Subjective Subjective: ambulating short distances with walker, knee pain/weakness improving Objective - Vital Signs/Intake and Output Vital Signs (last 24 hours): Temp Pulse Resp BP Pulse Ox 97.9 F 67 22 114/74 97 01/13/17 08:00 01/13/17 08:00 01/13/17 08:00 01/13/17 08:00 01/13/17 08:00 Intake and Output: 01/13/17 01/13/17 06:59 18:59 Intake Total 540 Output Total 1250 Balance -710 - Medications Medications: Current Medications Acetaminophen (Tylenol 325mg Tab) 650 mg PO Q6H PRN PRN Reason: Pain, Mild (1-3) Acetaminophen (Tylenol 325mg Tab) 650 mg PO Q6H PRN PRN Reason: Fever >100.5 F Allopurinol (Zyloprim) 200 mg PO DAILY [facility] Last Admin: 01/13/17 12:53 Dose: 200 mg Aspirin (Aspirin Chewable) 81 mg PO DAILY [facility] Last Admin: 01/13/17 09:35 Dose: 81 mg Carvedilol (Coreg) 25 mg PO BID [facility] Last Admin: 01/13/17 09:34 Dose: 25 mg Clopidogrel Bisulfate (Plavix) 75 mg PO DAILY [facility] Last Admin: 01/13/17 09:34 Dose: 75 mg Colchicine (Colocrys) 0.6 mg PO BID [facility] Last Admin: 01/13/17 09:34 Dose: 0.6 mg Insulin Detemir (Levemir) 6 unit SC HS [facility] Last Admin: 01/12/17 21:54 Dose: 6 unit Ketoconazole (Nizoral) 0 gm TOP BID [facility] Last Admin: 01/13/17 09:35 Dose: 1 applic Levothyroxine Sodium (Synthroid) 125 mcg PO DAILY [facility] Last Admin: 01/13/17 09:34 Dose: 125 mcg Pantoprazole Sodium (Protonix Ec Tab) 40 mg PO DAILY [facility] Last Admin: 01/13/17 09:34 Dose: 40 mg Repaglinide (Prandin) 1 mg PO AC [facility] Last Admin: 01/13/17 16:38 Dose: Not Given Sodium Bicarbonate (Sodium Bicarbonate Tab) 650 mg PO BID [facility] Last Admin: 01/13/17 09:34 Dose: 650 mg Tamsulosin HCl (Flomax) 0.4 mg PO DAILY [facility] Last Admin: 01/13/17 09:35 Dose: 0.4 mg - Labs Labs: 01/12/17 06:30 01/13/17 06:58 PT 12.0 SECONDS (9.4-12.5) 01/09/17 12:15 INR 1.09 (0.93-1.08) H 01/09/17 12:15 APTT 31.8 Seconds (25.1-36.5) 01/09/17 12:15 - Respiratory Exam Respiratory Exam: Clear to Ausculation Bilateral, NORMAL BREATHING PATTERN - Cardiovascular Exam Cardiovascular Exam: REGULAR RHYTHM - GI/Abdominal Exam GI & Abdominal Exam: Soft, Normal Bowel Sounds - Neurological Exam Neurological Exam: Abnormal Gait, Alert, Awake - Skin Skin Exam: Dry, Warm Assessment and Plan (1) Diarrhea Status: Acute (2) Gouty arthritis Status: Acute (3) Pain, lower leg Status: Acute (4) Chronic kidney disease Status: Chronic - Assessment and Plan (Free Text) Plan: continue physical therapy, check labs in am, social work for discharge planning
[2017-01-13] MEDS: Insulin Detemir 100 units/ml Vial (Levemir) SC SCH (22:19)
[2017-01-14 07:44] LABS: BASO # 0.16 K/mm3 (0.0-2.0); BASO % 1.2 % (0.0-3.0); EOS % 14.9 % (1.5-5.0); GRAN # 8.5 (1.4-6.5); GRAN % 64.4 % (50.0-68.0); HEMATOCRIT 43.7 % (42.0-52.0); LYMPH # 1.6 (1.2-3.4); LYMPH % 12.2 % (22.0-35.0); MEAN CELL VOLUME 90.5 fl (80.0-105.0); MEAN CORPUSCULAR HEMOGLOBIN 30.4 pg (25.0-35.0); MEAN CORPUSCULAR HGB CONC 33.6 g/dl (31.0-37.0); MEAN PLATELET VOLUME 10.7 fl (7.0-11.0); MONO % 7.3 % (1.0-6.0); RED CELL DISTRIBUTION WIDTH 14.2 % (11.5-14.5); WHITE BLOOD COUNT 13.2 10^3/ul (4.5-11.0)
[2017-01-14 07:57] LABS: BILIRUBIN,TOTAL 0.8 mg/dL (0.2-1.3); POTASSIUM 5.1 mmol/L (3.6-5.0); TOTAL PROTEIN 7.3 g/dL (5.8-8.3)
--- NOTE | 2017-01-14 08:47 | PN ---
DATE: 01/13/2017 SUBJECTIVE: The patient is seen, sitting in bed. He is awake, he is alert, he is comfortable. He complains of some pain in his left knee. He has a rolling walker at his bedside now. He denies any chest tightness or palpitations. PHYSICAL EXAMINATION: GENERAL: Obese, elderly male, sitting in bed. VITAL SIGNS: Blood pressure 114/74, heart rate 67, respiratory rate 22, temperature 97.9. HEENT: Normocephalic, atraumatic. NECK: Supple, no JVD. LUNGS: Bilateral equal entry, no rales. CARDIAC: S1 and S2. Regular rate and rhythm, no murmur, no rub. ABDOMEN: Obese, distended, soft, nontender, bowel sounds are present. EXTREMITIES: No lower extremity edema. INTAKE AND OUTPUT: Not charted. LABORATORY DATA: No CBC today. Chemistry: Sodium 139, potassium 5.3, chloride 108, CO2 of 21, BUN 62, creatinine 2.9, glucose 96, calcium 8.5, AST 19, ALT 32, albumin 3.5. CURRENT MEDICATIONS: Aspirin, Colcrys 0.6 b.i.d., Coreg 25 b.i.d., Flomax 0.4, Levemir 6 units,Nizoral, Plavix, repaglinide, Protonix, sodium bicarbonate 650 b.i.d., Synthroid, Tylenol. ASSESSMENT: 1. Acute gouty arthritis of the left knee. 2. Severe hyperuricemia. 3. Resolved acute kidney injury, stable chronic kidney disease stage IV. 4. Noninsulin-dependent diabetes mellitus. 5. Hypertension. 6. Anemia of chronic kidney disease. PLAN: 1. Start allopurinol 200 mg daily. 2. Continue Colcrys 0.6 b.i.d. 3. Monitor fingersticks. 4. Continue antihypertensives. 5. Kaiyt Helms MD
[2017-01-14] MEDS: Pantoprazole 40 mg EC Tab PO SCH (09:18)
[2017-01-14] MEDS: Levothyroxine 125 MCG TAB PO SCH (09:19)
--- NOTE | 2017-01-14 09:49 | CP.PCM.PN ---
<Paula Edmonds - Last Filed: 01/14/17 09:48> Subjective - Date & Time of Evaluation Date of Evaluation: 01/14/17 Time of Evaluation: 07:50 - Subjective Subjective: Seen and examined at the bedside earlier today, chart was reviewed. Patient reported to have episode of loose stool, no reports of any bleeding. Patient denies nausea, vomiting, or abdominal pain. Tolerating oral intake. Objective - Vital Signs/Intake and Output Vital Signs (last 24 hours): Temp Pulse Resp BP Pulse Ox 97.8 F 72 18 131/73 95 01/14/17 08:09 01/14/17 09:19 01/14/17 08:09 01/14/17 09:19 01/14/17 08:09 Intake and Output: 01/14/17 01/14/17 06:59 18:59 Intake Total 660 Output Total 1000 Balance -340 - Medications Medications: Current Medications Acetaminophen (Tylenol 325mg Tab) 650 mg PO Q6H PRN PRN Reason: Pain, Mild (1-3) Acetaminophen (Tylenol 325mg Tab) 650 mg PO Q6H PRN PRN Reason: Fever >100.5 F Allopurinol (Zyloprim) 200 mg PO DAILY [facility] Last Admin: 01/14/17 09:19 Dose: 200 mg Aspirin (Aspirin Chewable) 81 mg PO DAILY [facility] Last Admin: 01/14/17 09:18 Dose: 81 mg Carvedilol (Coreg) 25 mg PO BID [facility] Last Admin: 01/14/17 09:19 Dose: 25 mg Clopidogrel Bisulfate (Plavix) 75 mg PO DAILY [facility] Last Admin: 01/14/17 09:18 Dose: 75 mg Colchicine (Colocrys) 0.6 mg PO BID [facility] Last Admin: 01/14/17 09:18 Dose: 0.6 mg Insulin Detemir (Levemir) 6 unit SC HS [facility] Last Admin: 01/13/17 22:19 Dose: Not Given Ketoconazole (Nizoral) 0 gm TOP BID [facility] Last Admin: 01/14/17 09:20 Dose: 1 applic Levothyroxine Sodium (Synthroid) 125 mcg PO DAILY [facility] Last Admin: 01/14/17 09:19 Dose: 125 mcg Pantoprazole Sodium (Protonix Ec Tab) 40 mg PO DAILY [facility] Last Admin: 01/14/17 09:18 Dose: 40 mg Repaglinide (Prandin) 1 mg PO AC [facility] Last Admin: 01/14/17 08:18 Dose: 1 mg Sodium Bicarbonate (Sodium Bicarbonate Tab) 650 mg PO BID [facility] Last Admin: 01/14/17 09:19 Dose: 650 mg Tamsulosin HCl (Flomax) 0.4 mg PO DAILY [facility] Last Admin: 01/14/17 09:19 Dose: 0.4 mg - Labs Labs: 01/14/17 07:41 01/14/17 07:41 PT 12.0 SECONDS (9.4-12.5) 01/09/17 12:15 INR 1.09 (0.93-1.08) H 01/09/17 12:15 APTT 31.8 Seconds (25.1-36.5) 01/09/17 12:15 - Constitutional Appears: No Acute Distress - Eye Exam Eye Exam: Normal appearance. absent: Scleral icterus - ENT Exam ENT Exam: Mucous Membranes Moist - Neck Exam Neck Exam: Normal Inspection - Respiratory Exam Respiratory Exam: NORMAL BREATHING PATTERN. absent: Respiratory Distress - Cardiovascular Exam Cardiovascular Exam: +S1, +S2 - GI/Abdominal Exam GI & Abdominal Exam: Distended, Soft. absent: Guarding, Tenderness, Rebound - Extremities Exam Extremities Exam: absent: Calf Tenderness - Neurological Exam Neurological Exam: Alert, Awake, Oriented x3 - Skin Skin Exam: Dry, Warm Assessment and Plan - Assessment and Plan (Free Text) Assessment: Assessment: Diarrhea, now resolved differential gastroenteritis, now had semi loose stool, maybe secondary to medication, on Colcrys on Acute renal failure Hyperkalemia, s/p kayexalate on 01/12, improving Gout History of coronary artery disease status post stent placement 2 CHF Developmental disability DJD status post arthrocentesis and ensure the articular injection of left knee Plan: continue Protonix On Plavix and aspirin on Colcrys diet as tolerated as per renal Spoke to patient regarding elective colonoscopic evaluation Seen and discussed with Dr. Levy. <Temo Levy V - Last Filed: 01/15/17 00:37> Objective - Vital Signs/Intake and Output Vital Signs (last 24 hours): Temp Pulse Resp BP Pulse Ox 97.9 F 68 20 133/88 97 01/14/17 19:00 01/14/17 17:44 01/14/17 16:00 01/14/17 17:44 01/14/17 16:00 Intake and Output: 01/14/17 01/15/17 18:59 06:59 Intake Total 480 660 Output Total 300 400 Balance 180 260 - Medications Medications: Current Medications Acetaminophen (Tylenol 325mg Tab) 650 mg PO Q6H PRN PRN Reason: Pain, Mild (1-3) Aspirin (Aspirin Chewable) 81 mg PO DAILY [facility] Last Admin: 01/14/17 09:18 Dose: 81 mg Carvedilol (Coreg) 25 mg PO BID [facility] Last Admin: 01/14/17 17:44 Dose: 25 mg Clopidogrel Bisulfate (Plavix) 75 mg PO DAILY [facility] Last Admin: 01/14/17 09:18 Dose: 75 mg Insulin Detemir (Levemir) 6 unit SC HS [facility] Last Admin: 01/13/17 22:19 Dose: Not Given Ketoconazole (Nizoral) 0 gm TOP BID [facility] Last Admin: 01/14/17 17:44 Dose: 1 applic Levothyroxine Sodium (Synthroid) 125 mcg PO DAILY [facility] Last Admin: 01/14/17 09:19 Dose: 125 mcg Repaglinide (Prandin) 1 mg PO AC [facility] Last Admin: 01/14/17 17:30 Dose: 1 mg Sodium Bicarbonate (Sodium Bicarbonate Tab) 650 mg PO BID [facility] Last Admin: 01/14/17 17:45 Dose: 650 mg Tamsulosin HCl (Flomax) 0.4 mg PO DAILY [facility] Last Admin: 01/14/17 09:19 Dose: 0.4 mg - Labs Labs: 01/14/17 07:41 01/14/17 07:41 PT 12.0 SECONDS (9.4-12.5) 01/09/17 12:15 INR 1.09 (0.93-1.08) H 01/09/17 12:15 APTT 31.8 Seconds (25.1-36.5) 01/09/17 12:15 Attending/Attestation - Attestation I have personally seen and examined this patient.: Yes I have fully participated in the care of the patient.: Yes I have reviewed all pertinent clinical information, including history, physical exam and plan: Yes Notes (Text): This is an addendum to GI progress report dictated by Paula Edmonds APN.The patient was seen and examined earlier. Medical records, lab studies, imagings were reviewed. Last 24 hours events reviewed. Agreed with the above treatment plan as outlined in Paula Edmonds APN's notes the with the addition of the following Episodes of loose bowel movements earlier. Patientgetting better on examination abdomen soft nontender Discussed with Dr. Meyer would benefit from elective colonoscopy 01/15/17 00:36
--- NOTE | 2017-01-14 11:04 | CP.PCM.PN ---
Subjective - Date & Time of Evaluation Date of Evaluation: 01/14/17 Time of Evaluation: 11:00 - Subjective Subjective: c/o diarrhea, non-bloody, denies abdominal pain, no nausea/vomiting Objective - Vital Signs/Intake and Output Vital Signs (last 24 hours): Temp Pulse Resp BP Pulse Ox 97.8 F 72 18 131/73 95 01/14/17 08:09 01/14/17 09:19 01/14/17 08:09 01/14/17 09:19 01/14/17 08:09 Intake and Output: 01/14/17 01/14/17 06:59 18:59 Intake Total 660 Output Total 1000 Balance -340 - Medications Medications: Current Medications Acetaminophen (Tylenol 325mg Tab) 650 mg PO Q6H PRN PRN Reason: Pain, Mild (1-3) Aspirin (Aspirin Chewable) 81 mg PO DAILY [facility] Last Admin: 01/14/17 09:18 Dose: 81 mg Carvedilol (Coreg) 25 mg PO BID [facility] Last Admin: 01/14/17 09:19 Dose: 25 mg Clopidogrel Bisulfate (Plavix) 75 mg PO DAILY [facility] Last Admin: 01/14/17 09:18 Dose: 75 mg Insulin Detemir (Levemir) 6 unit SC HS [facility] Last Admin: 01/13/17 22:19 Dose: Not Given Ketoconazole (Nizoral) 0 gm TOP BID [facility] Last Admin: 01/14/17 09:20 Dose: 1 applic Levothyroxine Sodium (Synthroid) 125 mcg PO DAILY [facility] Last Admin: 01/14/17 09:19 Dose: 125 mcg Repaglinide (Prandin) 1 mg PO AC [facility] Last Admin: 01/14/17 08:18 Dose: 1 mg Sodium Bicarbonate (Sodium Bicarbonate Tab) 650 mg PO BID [facility] Last Admin: 01/14/17 09:19 Dose: 650 mg Tamsulosin HCl (Flomax) 0.4 mg PO DAILY [facility] Last Admin: 01/14/17 09:19 Dose: 0.4 mg - Labs Labs: 01/14/17 07:41 01/14/17 07:41 PT 12.0 SECONDS (9.4-12.5) 01/09/17 12:15 INR 1.09 (0.93-1.08) H 01/09/17 12:15 APTT 31.8 Seconds (25.1-36.5) 01/09/17 12:15 - Respiratory Exam Respiratory Exam: Clear to Ausculation Bilateral, NORMAL BREATHING PATTERN - Cardiovascular Exam Cardiovascular Exam: REGULAR RHYTHM - GI/Abdominal Exam GI & Abdominal Exam: Soft, Normal Bowel Sounds - Extremities Exam Extremities Exam: Normal Inspection - Neurological Exam Neurological Exam: Abnormal Gait, Alert, Awake - Skin Skin Exam: Dry, Warm Assessment and Plan (1) Diarrhea Status: Acute (2) Gouty arthritis Status: Acute (3) Pain, lower leg Status: Acute (4) Chronic kidney disease Status: Chronic - Assessment and Plan (Free Text) Plan: hold allopurinol, colchicine, protonix due to diarrhea, check stool c&s/cdiff, monitor lytes/renal function
--- NOTE | 2017-01-14 20:31 | PN ---
ENDO FOLLOWUP NOTE LOCATION: Room 568. This is a 61-year-old male with recent uncontrolled type 2 insulin-requiring diabetes, now being followed closely for metabolic management. His oral intake has been quite variable as per the nursing staff, and the latest glucose levels today have ranged from 83 to 111 and 149 mg/dL. It was 115 at bedtime last night. The latest chemistry showed a BUN of 63, sodium 141, potassium 5.1, chloride 110, CO2 of 20, glucose 119, and creatinine 2.9. So at this time, we will continue the same basal insulin in combination with oral hypoglycemic therapy as given to allow for dose equilibration. We will continue his Prandin given as 1 mg p.o. t.i.d. before meals as ordered. We will continue the basal insulin given as Levemir at 6 units subcu at bedtime daily as ordered. We will continue the low-dose correction scale using regular insulin as given. We will titrate incrementally as indicated to optimize metabolic control. We will follow and advise accordingly. Heydi Lopez MD
[2017-01-15] MEDS: Insulin Detemir 100 units/ml Vial (Levemir) SC SCH (05:32)
[2017-01-15 07:46] LABS: BASO # 0.13 K/mm3 (0.0-2.0); BASO % 1.1 % (0.0-3.0); EOS # 2.2 (0.0-0.7); GRAN # 7.21 (1.4-6.5); GRAN % 59.9 % (50.0-68.0); HEMATOCRIT 46.3 % (42.0-52.0); LYMPH # 1.6 (1.2-3.4); MEAN CORPUSCULAR HEMOGLOBIN 30.5 pg (25.0-35.0); MEAN CORPUSCULAR HGB CONC 33.5 g/dl (31.0-37.0); MEAN PLATELET VOLUME 10.9 fl (7.0-11.0); RED CELL DISTRIBUTION WIDTH 14.4 % (11.5-14.5)
[2017-01-15 07:55] LABS: ALB/GLOB RATIO 0.9 (1.1-1.8); BILIRUBIN,TOTAL 0.9 mg/dL (0.2-1.3); CALCIUM 9.5 mg/dL (8.4-10.5); POTASSIUM 5.3 mmol/L (3.6-5.0); TOTAL PROTEIN 7.6 g/dL (5.8-8.3)
--- NOTE | 2017-01-15 09:23 | CP.PCM.PN ---
Subjective - Date & Time of Evaluation Date of Evaluation: 01/15/17 Time of Evaluation: 09:00 - Subjective Subjective: c/o diarrhea, non-bloody, no abdominal pain, no c/o leg/knee pain, ambulating with walker without difficulty Objective - Vital Signs/Intake and Output Vital Signs (last 24 hours): Temp Pulse Resp BP Pulse Ox 98.2 F 75 20 126/76 96 01/15/17 07:30 01/15/17 07:30 01/15/17 07:30 01/15/17 07:30 01/15/17 07:30 Intake and Output: 01/15/17 01/15/17 06:59 18:59 Intake Total 660 Output Total 400 Balance 260 - Medications Medications: Current Medications Acetaminophen (Tylenol 325mg Tab) 650 mg PO Q6H PRN PRN Reason: Pain, Mild (1-3) Aspirin (Aspirin Chewable) 81 mg PO DAILY [facility] Last Admin: 01/14/17 09:18 Dose: 81 mg Carvedilol (Coreg) 25 mg PO BID [facility] Last Admin: 01/14/17 17:44 Dose: 25 mg Clopidogrel Bisulfate (Plavix) 75 mg PO DAILY [facility] Last Admin: 01/14/17 09:18 Dose: 75 mg Insulin Detemir (Levemir) 6 unit SC HS [facility] Last Admin: 01/15/17 05:32 Dose: Not Given Ketoconazole (Nizoral) 0 gm TOP BID [facility] Last Admin: 01/14/17 17:44 Dose: 1 applic Levothyroxine Sodium (Synthroid) 125 mcg PO DAILY [facility] Last Admin: 01/14/17 09:19 Dose: 125 mcg Repaglinide (Prandin) 1 mg PO AC [facility] Last Admin: 01/14/17 17:30 Dose: 1 mg Sodium Bicarbonate (Sodium Bicarbonate Tab) 650 mg PO BID [facility] Last Admin: 01/14/17 17:45 Dose: 650 mg Tamsulosin HCl (Flomax) 0.4 mg PO DAILY [facility] Last Admin: 01/14/17 09:19 Dose: 0.4 mg - Labs Labs: 01/15/17 06:30 01/15/17 06:30 PT 12.0 SECONDS (9.4-12.5) 01/09/17 12:15 INR 1.09 (0.93-1.08) H 01/09/17 12:15 APTT 31.8 Seconds (25.1-36.5) 01/09/17 12:15 - Respiratory Exam Respiratory Exam: Clear to Ausculation Bilateral, NORMAL BREATHING PATTERN - Cardiovascular Exam Cardiovascular Exam: REGULAR RHYTHM - GI/Abdominal Exam GI & Abdominal Exam: Soft, Normal Bowel Sounds - Extremities Exam Extremities Exam: Normal Inspection - Neurological Exam Neurological Exam: Alert, Awake - Skin Skin Exam: Dry, Warm Assessment and Plan (1) Diarrhea Status: Acute (2) Gouty arthritis Status: Acute (3) Pain, lower leg Status: Acute (4) Chronic kidney disease Status: Chronic - Assessment and Plan (Free Text) Plan: await stool cultures, Cdiff, GI follow-up for colonoscopy, start empiric rx Cipro 250 bid
[2017-01-15] MEDS: Levothyroxine 125 MCG TAB PO SCH (09:32)
--- NOTE | 2017-01-15 12:48 | PN ---
DATE: 01/14/2017 SUBJECTIVE: The patient is seen sitting in chair. He is awake and he is alert. He complains of diarrhea. PHYSICAL EXAMINATION General: Elderly male lying in bed. Vital signs: Blood pressure is 133/88, heart rate is 68, respiratory rate is 20, and temperature 98.2. HEENT: Normocephalic and atraumatic. Positive pallor. NECK: Supple and no JVD. LUNGS: Bilateral equal air entry. No rales. CARDIAC: S1 and S2, regular rate and rhythm. No murmur and no rub. ABDOMEN: Obese, distended, soft, and nontender. Bowel sounds present. EXTREMITIES: No lower extremity edema. INTAKE AND OUTPUT: 660/1000. LABORATORY DATA: WBC of 13, hemoglobin of 14.7, hematocrit of 43.7, and platelets of 332. Sodium of 141, potassium of 5.1, chloride of 110, CO2 of 20, BUN of 63, and creatinine of 2.9. Glucose of 119, calcium of 9.0, and albumin of 3.6. CURRENT MEDICATIONS: Aspirin, Cipro, Coreg, Flomax, Levemir, Plavix, Prandin, sodium bicarbonate, Synthroid, and Tylenol. ASSESSMENT AND PLAN: 1. Diarrhea, suspect may be secondary to colchicine, agree with discontinuation of colchicine. 2. Resolved acute kidney injury, stable chronic kidney disease stage IV. 3. Acute gouty arthritis of the left knee, severe hyperuricemia. 4. [id number] diabetes mellitus. 5. Hypertension. 6. Coronary artery disease and congestive heart failure. 7. Acidosis. PLAN 1. Agree with discontinuation of colchicine. 2. Continue fingerstick monitoring. 3. Follow up stool for Clostridium difficile. 4. Continue antihypertensives. Kaity Helms MD
--- NOTE | 2017-01-16 02:11 | PN ---
DATE: ENDOCRINOLOGY FOLLOW UP NOTE In room 568. SUBJECTIVE: This is a 61-year-old male with recent uncontrolled type 2 insulin-requiring diabetes, now being followed closely for metabolic management. He continues to have low normal fasting glycemic levels as noted and today's glucose levels have ranged from 82 to 108 mg/dL. The latter glucose levels were from 137 to 172 mg/dL. His latest chemistry shows a BUN of 58, sodium 142, potassium 5.3, chloride 110, CO2 of 22, glucose 74 and creatinine 2.7. So at this time, we will modify his current insulin regimen and actually discontinue the Levemir given as 6 units subcu at bedtime daily as ordered. We will observe his fasting glycemic profile and if hyperglycemic levels supervene then we will restart him on the same dosing at the lower regimen as indicated. We will increase the Prandin given to 2 mg p.o. t.i.d. before meals as ordered. We will titrate incrementally as indicated to optimize metabolic control. We will also continue the low-dose correction scale using Humalog insulin as given. We will titrate incrementally as indicated to optimize metabolic control. We will follow. Heydi Lopez MD
--- NOTE | 2017-01-16 06:20 | PN ---
DATE: 01/15/2017 SUBJECTIVE: This patient was seen and evaluated earlier today. States that diarrhea is better now. We went only once in the morning. No complaints of any abdominal pain. PHYSICAL EXAMINATION: VITAL SIGNS: Temperature is 97.2, blood pressure 118/82, pulse 72, O2 saturation is 99, respirations 20. HEENT: Atraumatic, anicteric. NECK: Supple. HEART: S1, S2 heard. LUNGS: Bilateral air entry present. ABDOMEN: Soft. EXTREMITIES: No edema, no cyanosis. LABORATORY DATA: WBC is 12, hemoglobin 15.5, hematocrit 46.3, platelets 302. Chemistry; BUN 58, creatinine 2.7, and potassium 5.3. IMPRESSION: 1. This is a 61-year-old patient, who is a [facility] resident admitted with abdominal discomfort and weakness. He has episodes of diarrhea. He slowly appears to be improving. Other past medical history just included addendum. This patient's diarrhea appears to be slowing down. The diarrhea started after the colchicine, worsening of the diarrhea discontinued. He feels much better. The diarrhea is better. 2. History of acute kidney injury on the top of chronic kidney disease. 3. Arthritis. I would continue to closely follow up the patient. Since the diarrhea is slowly improving, we will prefer the patient to have an outpatient colonic evaluation. Continue the renal followup. Thank you very much for allowing us to participate in the care of the patient. Temo Levy MD
[2017-01-16] MEDS: Levothyroxine 125 MCG TAB PO SCH (10:26)
--- NOTE | 2017-01-16 11:13 | CP.PCM.PN ---
Subjective - Date & Time of Evaluation Date of Evaluation: 01/16/17 Time of Evaluation: 11:00 - Subjective Subjective: no diarrhea today, denies abdominal pain,, ambulating with walker without pain, no weakness Objective - Vital Signs/Intake and Output Vital Signs (last 24 hours): Temp Pulse Resp BP Pulse Ox 97.8 F 79 18 127/92 H 96 01/16/17 07:30 01/16/17 07:30 01/16/17 07:30 01/16/17 07:30 01/16/17 07:30 Intake and Output: 01/16/17 01/16/17 06:59 18:59 Intake Total 400 Balance 400 - Medications Medications: Current Medications Acetaminophen (Tylenol 325mg Tab) 650 mg PO Q6H PRN PRN Reason: Pain, Mild (1-3) Aspirin (Aspirin Chewable) 81 mg PO DAILY [facility] Last Admin: 01/15/17 09:32 Dose: 81 mg Carvedilol (Coreg) 25 mg PO BID [facility] Last Admin: 01/15/17 17:45 Dose: 25 mg Clopidogrel Bisulfate (Plavix) 75 mg PO DAILY [facility] Last Admin: 01/15/17 09:32 Dose: 75 mg Ketoconazole (Nizoral) 0 gm TOP BID [facility] Last Admin: 01/15/17 17:45 Dose: 1 applic Levothyroxine Sodium (Synthroid) 125 mcg PO DAILY [facility] Last Admin: 01/15/17 09:32 Dose: 125 mcg Repaglinide (Prandin) 2 mg PO AC [facility] Last Admin: 01/16/17 08:40 Dose: 2 mg Sodium Bicarbonate (Sodium Bicarbonate Tab) 650 mg PO BID [facility] Last Admin: 01/15/17 17:46 Dose: 650 mg Tamsulosin HCl (Flomax) 0.4 mg PO DAILY [facility] Last Admin: 01/15/17 09:32 Dose: 0.4 mg - Labs Labs: 01/15/17 06:30 01/15/17 06:30 PT 12.0 SECONDS (9.4-12.5) 01/09/17 12:15 INR 1.09 (0.93-1.08) H 01/09/17 12:15 APTT 31.8 Seconds (25.1-36.5) 01/09/17 12:15 - Respiratory Exam Respiratory Exam: Clear to Ausculation Bilateral, NORMAL BREATHING PATTERN - Cardiovascular Exam Cardiovascular Exam: REGULAR RHYTHM - GI/Abdominal Exam GI & Abdominal Exam: Soft, Normal Bowel Sounds - Back Exam Back Exam: NORMAL INSPECTION - Neurological Exam Neurological Exam: Alert, Awake - Skin Skin Exam: Dry, Warm Assessment and Plan (1) Diarrhea Status: Acute (2) Gouty arthritis Status: Acute (3) Pain, lower leg Status: Acute (4) Chronic kidney disease Status: Chronic - Assessment and Plan (Free Text) Plan: continue cipro po, await possible colonoscopy?, continue physical therapy, social work for discharge planning, check CBC/SMA in am
--- NOTE | 2017-01-16 15:57 | PN ---
DATE: 01/16/2017 SUBJECTIVE: This patient was seen and evaluated earlier. The patient now denies any diarrhea. Tolerating the diet. PHYSICAL EXAMINATION: VITAL SIGNS: Temperature 97.8, pulse 79, blood pressure 127/92, respirations 18, O2 saturation is 96. HEENT: Atraumatic, anicteric. NECK: Supple. HEART: S1, S2 heard. LUNGS: Bilateral air entry present. ABDOMEN: Soft. There was no tenderness. LABORATORY DATA: No recent labs today. IMPRESSION: This is a 61-year-old patient, long-term resident, admitted with diarrhea. Clinically, he is now improving discontinuing the colchicine. History of acute kidney injury on the top of chronic kidney disease. Other comorbidities include diabetes mellitus, gouty arthritis, hypertension, coronary artery disease. RECOMMENDATION: The patient just recovering from his acute event of this diarrhea. Would consider elective colonoscopy as an outpatient. This was discussed with Dr. Meyer , they also discussed with the patient. Thank you very much for allowing us to participate in the care of the patient. Temo Levy MD
--- NOTE | 2017-01-16 22:01 | PN ---
DATE: ENDO FOLLOWUP NOTE LOCATION: Room 568 SUBJECTIVE: This is 61-year-old male with recent uncontrolled type II insulin requiring diabetes, now being followed closely for metabolic management. His glycemic levels are fluctuating, but much improved at this time and the latest glucose levels have ranged today from 81 to 118 and it was 125 at bedtime last night. So at this time, we will continue the low dose oral hypoglycemic drug therapy with Prandin given as 2 mg p.o. three times a day before meals as ordered. We have discontinued the basal insulin given as Levemir at 6 units at bedtime daily as ordered. We will continue the low dose correction scale using regular insulin as given. We will titrate incremental as indicated to optimize metabolic control. We will follow with you. Heydi Lopez MD
--- NOTE | 2017-01-17 00:30 | PN ---
DATE: 01/16/2017 SUBJECTIVE: The patient is seen sitting in chair. He is awake, he is alert, he is comfortable. He reports his diarrhea is much better. He is taking probiotics. He denies any knee pain at this time. PHYSICAL EXAMINATION: GENERAL: Obese elderly male sitting in chair. VITAL SIGNS: Blood pressure 127/92, heart rate 79, respiratory rate 18, temperature 97.8. HEENT: Normocephalic, atraumatic. NECK: Supple, negative. LUNGS: Bilateral equal entry, rales. CARDIAC: S1, S2, regular rate and rhythm, no murmur, no rub. ABDOMEN: Obese, distended, soft, nontender, bowel sounds present. EXTREMITIES: No lower extremity edema. INTAKE AND OUTPUT: Not charted. LABORATORY DATA: WBC 12, hemoglobin 15.5, hematocrit 46, platelets 320. Sodium 32, potassium 5.3, chloride 110, CO2 22, BUN 58, creatinine 2.7, glucose 74, calcium 9.5, albumin 3.7. ASSESSMENT: 1. Diarrhea, likely secondary to colchicine. 2. Gouty arthritis, left knee. 3. Stable chronic kidney disease stage 4. 4. Mild hyperkalemia. 5. Non-insulin dependent diabetes mellitus. 6. Hypertension. 7. Congestive heart failure. 8. Anemia of chronic kidney disease. PLAN: 1. Strongly recommend uric acid lowering therapy, consider Uloric as outpatient. 2. Agree with discontinuation of Uloric. 3. Continue monitoring fingersticks and insulin coverage. 4. Hypertension well-controlled at this time. 5. Stable from renal standpoint. Kaity Helms MD
[2017-01-17 06:00] VITALS: RESP 19
[2017-01-17 07:09] LABS: BASO # 0.18 K/mm3 (0.0-2.0); BASO % 1.5 % (0.0-3.0); EOS # 1.5 (0.0-0.7); EOS % 12.5 % (1.5-5.0); GRAN # 7.65 (1.4-6.5); GRAN % 64.9 % (50.0-68.0); HEMATOCRIT 43.5 % (42.0-52.0); LYMPH # 1.4 (1.2-3.4); LYMPH % 12.1 % (22.0-35.0); MEAN CELL VOLUME 90.2 fl (80.0-105.0); MEAN CORPUSCULAR HEMOGLOBIN 29.9 pg (25.0-35.0); MEAN CORPUSCULAR HGB CONC 33.1 g/dl (31.0-37.0); MEAN PLATELET VOLUME 11.1 fl (7.0-11.0); MONO # 1.1 (0.1-0.6); RED CELL DISTRIBUTION WIDTH 14.5 % (11.5-14.5); WHITE BLOOD COUNT 11.8 10^3/ul (4.5-11.0)
[2017-01-17 07:32] LABS: BILIRUBIN,TOTAL 0.9 mg/dL (0.2-1.3); CALCIUM 9.3 mg/dL (8.4-10.5); TOTAL PROTEIN 7.2 g/dL (5.8-8.3)
[2017-01-17 08:14] VITALS: BP 124/84; PULSE 71; TEMP 97.4; O2SAT 96
[2017-01-17] MEDS: Levothyroxine 125 MCG TAB PO SCH (10:05)
--- NOTE | 2017-01-17 11:50 | CP.PCM.PN ---
Subjective - Date & Time of Evaluation Date of Evaluation: 01/17/17 Time of Evaluation: 09:50 - Subjective Subjective: Seen and examined at the bedside earlier today, the patient denies any further episodes of diarrhea. Denies nausea, vomiting, or abdominal pain. Aspirin nursing staff no acute overnight events. No reports of overt GI bleed. Objective - Vital Signs/Intake and Output Vital Signs (last 24 hours): Temp Pulse Resp BP Pulse Ox 97.4 F L 71 19 124/84 96 01/17/17 07:30 01/17/17 07:30 01/17/17 07:30 01/17/17 10:05 01/17/17 07:30 Intake and Output: 01/17/17 01/17/17 06:59 18:59 Intake Total 480 Output Total 950 Balance -470 - Medications Medications: Current Medications Acetaminophen (Tylenol 325mg Tab) 650 mg PO Q6H PRN PRN Reason: Pain, Mild (1-3) Aspirin (Aspirin Chewable) 81 mg PO DAILY [facility] Last Admin: 01/17/17 10:05 Dose: 81 mg Carvedilol (Coreg) 25 mg PO BID [facility] Last Admin: 01/17/17 10:05 Dose: 25 mg Clopidogrel Bisulfate (Plavix) 75 mg PO DAILY [facility] Last Admin: 01/17/17 10:05 Dose: 75 mg Ketoconazole (Nizoral) 0 gm TOP BID [facility] Last Admin: 01/17/17 10:07 Dose: 1 applic Levothyroxine Sodium (Synthroid) 125 mcg PO DAILY [facility] Last Admin: 01/17/17 10:05 Dose: 125 mcg Repaglinide (Prandin) 2 mg PO [facility] Sodium Bicarbonate (Sodium Bicarbonate Tab) 650 mg PO BID [facility] Last Admin: 01/17/17 10:05 Dose: 650 mg Tamsulosin HCl (Flomax) 0.4 mg PO DAILY [facility] Last Admin: 01/17/17 10:05 Dose: 0.4 mg - Labs Labs: 01/17/17 07:04 01/17/17 07:04 PT 12.0 SECONDS (9.4-12.5) 01/09/17 12:15 INR 1.09 (0.93-1.08) H 01/09/17 12:15 APTT 31.8 Seconds (25.1-36.5) 01/09/17 12:15 - Constitutional Appears: No Acute Distress - Head Exam Head Exam: NORMOCEPHALIC - Eye Exam Eye Exam: Normal appearance. absent: Scleral icterus - ENT Exam ENT Exam: Mucous Membranes Moist - Neck Exam Neck Exam: Normal Inspection - Respiratory Exam Respiratory Exam: NORMAL BREATHING PATTERN. absent: Respiratory Distress - Cardiovascular Exam Cardiovascular Exam: +S1, +S2 - GI/Abdominal Exam GI & Abdominal Exam: Soft, Normal Bowel Sounds. absent: Guarding, Tenderness, Organomegaly, Rebound - Extremities Exam Extremities Exam: absent: Calf Tenderness, Pedal Edema - Neurological Exam Neurological Exam: Alert, Awake, Oriented x3 - Skin Skin Exam: Dry (she), Warm Assessment and Plan - Assessment and Plan (Free Text) Assessment: Assessment: Diarrhea, improving, on admission thought to be gastroenteritis, resolved and resumed, thought maybe secondary to medication, on Colcrys now DC. Acute renal failure Hyperkalemia, s/p kayexalate on 01/12, improving Gout History of coronary artery disease status post stent placement 2 CHF Developmental disability DJD status post arthrocentesis and ensure the articular injection of left knee Plan: continue Protonix On Plavix and aspirin on Colcrys diet as tolerated as per renal elective outpatient colonoscopic evaluation Seen and discussed with Dr. Levy.
--- NOTE | 2017-01-17 14:05 | PN ---
DATE: 01/17/2017 SUBJECTIVE: The patient is seen sitting in chair. He is awake, he is alert, he is comfortable. He denies any diarrhea now. He denies any pain in the knee. PHYSICAL EXAMINATION: GENERAL: Elderly male sitting in chair. VITAL SIGNS: Blood pressure 124/84, heart rate 71, respiratory rate 19, temperature 97.4. HEENT: Normocephalic, atraumatic. NECK: Supple, no JVD. LUNGS: Bilateral equal air entry. No rales. CARDIAC: S1 and S2, regular rate and rhythm. No murmur, no rub. ABDOMEN: Obese, distended, soft, nontender. Bowel sounds present. EXTREMITIES: No lower extremity edema. INTAKE AND OUTPUT: 960/1950. LABORATORY DATA: WBC 11.8, hemoglobin 14, hematocrit 44, platelets 282. Sodium 143, potassium 5.0, chloride 113, CO2 of 20, BUN 52, creatinine 2.6, glucose 58, calcium 9.3, AST 18, ALT 25, albumin 3.6. CURRENT MEDICATIONS: List reviewed. ASSESSMENT: 1. Stable chronic kidney disease, stage 4. 2. Run-pkgyuek-gztgpkbuw diabetes mellitus. 3. Hypertension. 4. Coronary artery disease/congestive heart failure. 5. Acute gouty arthritis, resolving. 6. Severe hyperuricemia. 7. Acidosis. PLAN: 1. Continue fingerstick monitoring, insulin coverage. 2. Continue antihypertensives. 3. Strongly recommend uric acid lowering therapy. 4. Stable from the renal standpoint at present. Kaity Helms MD
--- NOTE | 2017-01-17 20:43 | PN ---
DATE: ENDOCRINE FOLLOWUP NOTE LOCATION: 568. SUBJECTIVE: This is a 61-year-old male with recent uncontrolled type 2 insulin-requiring diabetes, now taken off Levemir, given as basal insulin overnight with improved glycemic profile as noted. 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 The chemistry showed a BUN of 52, sodium 143, potassium 5.0, chloride 113, CO2 of 20, glucose 58 and creatinine 2.6. So at this time, we will modify once again his oral hypoglycemic drug therapy and lower the Prandin to 1 mg p.o. t.i.d. before meals as ordered. We will continue the low-dose correction scale using regular insulin as given. He has still has been taken off all basal insulin therapy as ordered. We will obtain serial chemistries and supplement accordingly as needed. We will follow. Heydi Lopez MD
== END 2017-01-17 17:00 | disposition home or self-care (01) | DRG 551 ==
LOC: ED 10:47 → ERH 14:06 → 5RNO 16:59
PROVIDERS: ADMIT Internal Medicine; ATTEND Internal Medicine
DX: K52.9 Noninfective gastroenteritis and colitis, unspecified (principal); T50.4X5A Adverse effect of drugs affecting uric acid metabolism, initial encounter; N17.9 Acute kidney failure, unspecified; E87.2 Acidosis; I50.9 Heart failure, unspecified; I13.0 Hypertensive heart and chronic kidney disease with heart failure and stage 1 through stage 4 chronic kidney disease, or unspecified chronic kidney disease; N18.4 Chronic kidney disease, stage 4 (severe); E11.21 Type 2 diabetes mellitus with diabetic nephropathy; E11.22 Type 2 diabetes mellitus with diabetic chronic kidney disease; E11.42 Type 2 diabetes mellitus with diabetic polyneuropathy; E11.319 Type 2 diabetes mellitus with unspecified diabetic retinopathy without macular edema; E11.649 Type 2 diabetes mellitus with hypoglycemia without coma; J44.9 Chronic obstructive pulmonary disease, unspecified; E87.5 Hyperkalemia; E03.9 Hypothyroidism, unspecified; I25.10 Atherosclerotic heart disease of native coronary artery without angina pectoris; N40.0 Benign prostatic hyperplasia without lower urinary tract symptoms; M10.9 Gout, unspecified; M17.12 Unilateral primary osteoarthritis, left knee; F70 Mild intellectual disabilities; N25.81 Secondary hyperparathyroidism of renal origin; I34.0 Nonrheumatic mitral (valve) insufficiency; D63.1 Anemia in chronic kidney disease; E78.5 Hyperlipidemia, unspecified; I73.9 Peripheral vascular disease, unspecified; M51.37 Other intervertebral disc degeneration, lumbosacral region; Z79.4 Long term (current) use of insulin; Z95.5 Presence of coronary angioplasty implant and graft; Z95.810 Presence of automatic (implantable) cardiac defibrillator

== ENCOUNTER 2017-07-01 20:22 | Inpatient (IN) | payer MEDICAID, OTHER ==
[2017-07-01] MEDS ORDERED: Dextrose 50% SYRINGE Inj (50 ml) ONE (20:40)
[2017-07-01] MEDS ORDERED: Dextrose 50% SYRINGE Inj (50 ml) IVP STA (20:41)
--- NOTE | 2017-07-01 20:42 | ED PDOC ---
Arrival/HPI - General Chief Complaint: Weakness/Neurological Deficit Time Seen by Provider: 07/01/17 20:39 Historian: Patient, Caregiver - History of Present Illness Narrative History of Present Illness (Text): 07/01/17 20:42 pt p/w + ~ 1 day onset of persistent weakness, generalized fatigue/weakness; pt was noted to have a low BS yesterday night by [facility] staff (current staff at bedside does not know the numbers); pt states this morning he felt easily lightheaded; uncomfortable, + profusely sweaty and not himself; around dinner time, pt was witnessed by night time staff members to have been sitting at the table, slumped over and not eating and again profusely sweaty; pt denied LOC, [facility] staff members did not witness LOC; pt states not subjective feelings of chills/hot; no vision changes, no headaches, no cp/sob/palpitations, no abd pain, no n/v, no numbness/tingling, no appetite, no urinary/bowel changes, no incontinence, no fall/trauma/sick contact, no travel; pt denied other complaints pt is here for further eval. no slurr speech, no facial changes, noted by staff members PCP: Dr Meyer pt is a resident of [facility] (allied) Time/Duration: 24 hours Symptom Onset: Sudden Symptom Course: Unchanged Activities at Onset: Rest Context: Home ([facility]) Past Medical History - Provider Review Nursing Documentation Reviewed: Yes - Travel History Have you recently traveled outside [place] w/in the past 3 mons?: No - Past History Past History: No Previous - Infectious Disease Hx of Infectious Diseases: None - Tetanus Immunization Tetanus Immunization: Unknown - Cardiac Hx Cardiac Disorders: Yes (cardiac cath, coronary stent, pacemake w/ internal defibrillator) - Pulmonary Hx Respiratory Disorders: Yes Hx Chronic Obstructive Pulmonary Disease (COPD): Yes - Neurological Hx Neurological Disorder: Yes (MR) - HEENT Hx HEENT Disorder: No - Renal Hx Renal Disorder: Yes Hx Renal Failure: Yes - Endocrine/Metabolic Hx Endocrine Disorders: Yes Hx Diabetes Mellitus Type 1: Yes Hx Diabetes Mellitus Type 2: Yes Hx Hypothyroidism: Yes - Hematological/Oncological Hx Blood Disorders: No - Integumentary Hx Dermatological Disorder: Yes - Musculoskeletal/Rheumatological Hx Musculoskeletal Disorders: Yes Hx Falls: Yes - Gastrointestinal Hx Gastrointestinal Disorders: No - Genitourinary/Gynecological Hx Genitourinary Disorders: No - Psychiatric Hx Psychophysiologic Disorder: Yes Hx Substance Use: No Other/Comment: Developmental delay. - Surgical History Hx Cardiac Catheterization: Yes Hx Coronary Stent: Yes Other/Comment: cardiac cath, pacemaker with internal defribilator - Anesthesia Hx Anesthesia: Yes Hx Anesthesia Reactions: No Hx Malignant Hyperthermia: No - Suicidal Assessment Feels Threatened In Home Enviroment: No Family/Social History - Physician Review Nursing Documentation Reviewed: Yes Family/Social History: No Known Family HX Smoking Status: Never Smoked Hx Alcohol Use: No Hx Substance Use: No Hx Substance Use Treatment: No Allergies/Home Meds Allergies/Adverse Reactions: Allergies No Known Allergies Allergy (Verified 07/01/17 20:39) Home Medications: Home Meds Medication Instructions Recorded Confirmed Carvedilol [Coreg] 25 mg PO BID 01/03/16 01/22/17 Levothyroxine [Synthroid] 125 mcg PO DAILY 01/03/16 01/22/17 Ergocalciferol (Vitamin D2) 1.25 mg PO .WEEKLY 12/31/16 01/22/17 [Vitamin D2] Furosemide [Lasix] 80 mg PO DAILY 12/31/16 01/22/17 Ketoconazole 2% Cr [Nizoral] 1 appful TOP BID 12/31/16 01/22/17 Omeprazole 20 mg PO DAILY 12/31/16 01/22/17 Insulin Glargine,Hum.rec.anlog 25 units SC HS 01/09/17 01/22/17 [Toujeo Solostar] Enalapril Maleate [Vasotec] 10 mg PO DAILY 01/22/17 01/22/17 Sodium Bicarbonate Tab 650 mg PO DAILY 01/22/17 01/22/17 glyBURIDE [Micronase] 5 mg PO DAILY 01/22/17 01/22/17 Review of Systems - Review of Systems Constitutional: Fatigue, Other (profuse sweating) Eyes: Normal ENT: Normal Respiratory: Normal Cardiovascular: Normal Gastrointestinal: Normal Genitourinary Male: Normal Musculoskeletal: Normal Skin: Normal Neurological: Dizziness Endocrine: Diaphoresis Hemo/Lymphatic: Normal Psychiatric: Normal Physical Exam Vital Signs Reviewed: Yes Vital Signs Temp Pulse Resp BP Pulse Ox 07/01/17 22:05 70 18 107/65 92 L 07/01/17 20:41 97.6 F 76 17 148/75 95 Temperature: Afebrile Blood Pressure: Hypertensive (slightly elevated BP) Pulse: Regular Respiratory Rate: Normal Appearance: Positive for: Well-Appearing, Non-Toxic, Uncomfortable, Other ( resting in bed, alert/awake, GCS = 15, oriented x 2 (not to date/time), uncomfortable, NAD, cooperative, follows command with ease) Pain Distress: None Mental Status: Positive for: other (alert/awake, GCS = 15, oriented x 2 (not to date/time)) - Systems Exam Head: Present: Atraumatic, Normocephalic Pupils: Present: PERRL, Other (visual field intact b/l, no nystagmus, no photophobia) Extroacular Muscles: Present: EOMI Conjunctiva: Present: Normal Ears: Present: Normal Mouth: Present: Other (mild dry oral mucosa, fair dentitions, no drooling/ stridor, no dysphonia, uvula/tongue are midline) Pharnyx: Present: Normal Nose (External): Present: Atraumatic Nose (Internal): Present: Normal Inspection Neck: Present: Normal Range of Motion, Trachea Midline. No: Meningeal Signs, MIDLINE TENDERNESS Respiratory/Chest: Present: Clear to Auscultation, Good Air Exchange, Other ( CTA b/l, no w/r/r, no tachypenia). No: Respiratory Distress, Accessory Muscle Use Cardiovascular: Present: Regular Rate and Rhythm, Normal S1, S2. No: Murmurs Abdomen: Present: Normal Bowel Sounds, Other (well nourished male, no dye's sign, no mcburney's point tenderness, no masses/rebound/guarding/rigidity) Back: Present: Normal Inspection. No: CVA Tenderness, Midline Tenderness Upper Extremity: Present: Normal Inspection, Normal ROM, Neurovascularly Intact , Capillary Refill < 2s Lower Extremity: Present: Normal Inspection, Edema (+ 2/6 pitting edema noted b/ l lower ext up to distal knee region, no kyle's sign noted b/l; lower b/l ext chronic skin changes (no acute skin ulcerations/deformities noted), intact ROM, no gross deformities noted), NORMAL PULSES, Normal ROM, Neurovascularly Intact, Other (strength 5-/5 b/l, neurovasc intact b/l) Neurological: Present: GCS=15, CN II-XII Intact, Speech Normal Skin: Present: Warm, Other (cap refill ~ 1sec, + mild pallor, no rashes/lesions/ ulcerations/petechiae) Psychiatric: Present: Alert Medical Decision Making ED Course and Treatment: 07/01/17 20:40 Impression: weakness/diaphoresis, uncomfortable, low FS i have consider all the differential diagnosis regarding pt's chief medical complaints/clinical findings, including but are not limited to: weakness/ diaphoresis, uncomfortable, low FS A/P: weakness/diaphoresis, uncomfortable, low FS - labs - iv - xray - ct - supportive care - observe/reevaluation 07/01/17 21:37 pt is not in any distress pt is comfortable currently 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, Dr Meyers, made aware, agrees with admission [facility] caretakers/patient are made aware of pt's medical results agrees with admission Re-evaluation Time: 21:37 Reassessment Condition: Improving,but remains with symptoms - Critical Care Critical Care Minutes: 45 minutes Critical Care Time: Excluding Proc Time Narrative Critical Care (Text): 07/01/17 21:29 critical care time: 45min, excluding procedure time, excluding time teaching residents/students/mid-level providers; including initial eval/diagnosis, diagnostic interpretation, re-eval, consultations, final disposition - Lab Interpretations Lab Results: 07/01/17 20:49 07/01/17 20:49 Lab Results 07/01/17 21:10: POC Glucose (mg/dL) 126 H 07/01/17 20:49: Serum Osmolality 314 H 07/01/17 20:49: Blood Type A POSITIVE, Antibody Screen Negative, BBK History Checked Patient has bt 07/01/17 20:49: Sodium 143, Potassium 5.0, Chloride 107, Carbon Dioxide 19 L, Anion Gap 21 H, BUN 76 H, Creatinine 5.9 H, Est GFR ( Amer) 12, Est GFR ( Non-Af Amer) 10, Random Glucose 70, Calcium 9.5, Total Bilirubin 0.8, AST 21, ALT 18, Alkaline Phosphatase 72, Troponin I 0.03 D, NT-Pro-B Natriuret Pep 4060 H, Total Protein 8.6 H, Albumin 4.2, Globulin 4.3, Albumin/Globulin Ratio 1.0 L, Lipase 184 07/01/17 20:49: PT 11.5, INR 1.01, APTT 34.5 07/01/17 20:49: WBC 13.5 H, RBC 4.79, Hgb 14.7, Hct 43.9, MCV 91.6, MCH 30.7, MCHC 33.5, RDW 14.5, Plt Count 368, MPV 10.8, Gran % 82.6 H, Lymph % (Auto) 5.5 L, Forrest % (Auto) 7.9 H, Eos % (Auto) 3.6, Baso % (Auto) 0.4, Gran # 11.13 H, Lymph # (Auto) 0.7 L, Forrest # (Auto) 1.1 H, Eos # (Auto) 0.5, Baso # (Auto) 0.05 I have reviewed the lab results: Yes Interpretation: Abnormal lab values (elevated CREAT) - RAD Interpretation Narrative RAD Interpretations (Text): 07/01/17 22:39 CT Scan HEAD W/O CONTRAST Exam Date: 07/01/17 This imaging exam was performed at [facility] EXAM: CT Head Without Intravenous Contrast CLINICAL HISTORY: 61 years old, male; Signs and symptoms; Walking, difficulty; Additional info : Weakness, near syncope TECHNIQUE: Axial computed tomography images of the head/brain without intravenous contrast. All CT scans at this facility use one or more dose reduction techniques, viz.: automated exposure control; ma/kV adjustment per patient size (including targeted exams where dose is matched to indication; i.e. head); or iterative reconstruction technique. Coronal and sagittal reformatted images were created and reviewed. COMPARISON: CT - HEAD W/O CONTRAST 2017-01-09 16:16 FINDINGS: Brain: [id number] atrophy. No intracranial hemorrhage. No mass. Mild encephalomalacia within right temporal region. Minimal encephalomalacia within right frontal, left parietal, left occipital regions. Few scattered foci of decreased attenuation within periventricular/subcortical white matter. Probable chronic lacunar infarcts within basal ganglia. No definite edema. Ventricles: No hydrocephalus. Bones/joints: No acute fracture. Soft tissues: Unremarkable. Sinuses: Mild focal mucosal thickening of LEFT maxillary sinus. Mastoid air cells: No mastoid effusion. Orbits: Unremarkable as visualized. IMPRESSION: 1. Nonspecific white matter changes. Acute infarction may be CT occult within first 24 hours. If a focal deficit persists, consider followup CT or MRI for further evaluation. 2. Incidental/non-acute findings are described above. Dictated By: Srikanth Kevin MD Dictated Date/Time: 07/01/172150 Signed By: Srikanth Kevin MD Date Signed: 2150 Transcribed By: DESHAUN Transcribe Date/Time : 07/01/17215007/01/17 22:39 CXR - left cardiac device; + cardiomeagly, rotated/poor insp effort Radiology Orders: 07/01/17 20:39 HEAD W/O CONTRAST [CT] Stat CHEST PORTABLE [RAD] Stat [place] Stitcher: ED Physician, Radiologist - EKG Interpretation EKG Interpretation (Text): 07/01/17 21:00 NSR at 75 bpm, LAD, no ectopy, diffuse low voltage inf leads, ?LBBB, no st-t changes, ABNL EKG; unchanged compare with old ekg 01/2017 Interpreted by ED Physician: Yes Type: 12 lead EKG Comparison: Similar to previous EKG - Medication Orders Current Medication Orders: Dextrose/Sodium Chloride (Dextrose 5%/0.9% Ns 1000 Ml) 1,000 mls @ 100 mls/hr IV .Q10H ALFONSO Last Admin: 07/01/17 21:40 Dose: 100 mls/hr eMAR Start Stop Document 07/01/17 21:40 IT (Rec: 07/01/17 21:40 IT [id number]) Intravenous Solution Start Date 07/01/17 Start Time 21:40 Discontinued Medications Aspirin (Aspirin) 325 mg PO STAT STA Stop: 07/01/17 21:35 Last Admin: 07/01/17 21:44 Dose: 325 mg Dextrose (Dextrose 50% Inj) 50 ml IVP STAT STA Stop: 07/01/17 20:42 Last Admin: 07/01/17 20:49 Dose: 50 ml IVP Administration Document 07/01/17 20:49 IT (Rec: 07/01/17 20:49 IT [id number]) Charges for Administration # of IVP Administrations 1 Sodium Chloride (Sodium Chloride 0.9%) 500 mls @ 999 mls/hr IV .Q31M STA Stop: 07/01/17 22:00 Last Admin: 07/01/17 21:38 Dose: 999 mls/hr eMAR Start Stop Document 07/01/17 21:38 IT (Rec: 07/01/17 21:38 IT [id number]) Intravenous Solution Start Date 07/01/17 Start Time 21:38 End Date 07/01/17 Disposition/Present on Arrival - Present on Arrival Any Indicators Present on Arrival: No History of DVT/PE: No History of Uncontrolled Diabetes: No Urinary Catheter: No History Surgical Site Infection Following: None - Disposition Have Diagnosis and Disposition been Completed?: Yes Diagnosis: Near syncope, Hypoglycemia, Acute renal failure, Weakness Disposition: HOSPITALIZED Disposition Time: 21:28 Patient Plan: Admission, Telemetry Patient Problems: Current Active Problems Problem Status Onset Hypoglycemia Acute Near syncope Acute Acute renal failure Acute Weakness Acute Condition: STABLE
[2017-07-01 20:46] VITALS: BMI 29.6
[2017-07-01 20:59] LABS: BASO # 0.05 K/mm3 (0.0-2.0); BASO % 0.4 % (0.0-3.0); EOS # 0.5 (0.0-0.7); EOS % 3.6 % (1.5-5.0); GRAN # 11.13 (1.4-6.5); GRAN % 82.6 % (50.0-68.0); HEMOGLOBIN 14.7 g/dL (14.0-18.0); LYMPH # 0.7 (1.2-3.4); LYMPH % 5.5 % (22.0-35.0); MEAN CELL VOLUME 91.6 fl (80.0-105.0); MEAN CORPUSCULAR HEMOGLOBIN 30.7 pg (25.0-35.0); MEAN CORPUSCULAR HGB CONC 33.5 g/dl (31.0-37.0); MEAN PLATELET VOLUME 10.8 fl (7.0-11.0); MONO # 1.1 (0.1-0.6); MONO % 7.9 % (1.0-6.0); RBC 4.79 10^6/uL (3.5-6.1); RED CELL DISTRIBUTION WIDTH 14.5 % (11.5-14.5); WHITE BLOOD COUNT 13.5 10^3/ul (4.5-11.0)
[2017-07-01 21:04] LABS: ALBUMIN 4.2 g/dL (3.0-4.8); CALCIUM 9.5 mg/dL (8.4-10.5)
[2017-07-01 21:16] LABS: TROPONIN I 0.03 ng/mL
[2017-07-01] MEDS ORDERED: Sodium Chloride 0.9% 500 ML IV STA (21:30)
[2017-07-01] MEDS ORDERED: Dextrose 5%/0.9% NS 1,000 ML IV SCH ×2 (21:30→23:23)
[2017-07-01 21:32] LABS: INR 1.01 (0.93-1.08); PARTIAL THROMBOPLASTIN TIME 34.5 Seconds (25.1-36.5); PROTHROMBIN TIME 11.5 SECONDS (9.4-12.5)
--- NOTE | 2017-07-01 21:43 | CP.PCM.HP ---
History of Present Illness - History of Present Illness History of Present Illness: Gill Lei, PGY1, H&P for Dr Christin Meyers: CC: generalized weakness, hypoglycemia, diaphoresis 61 year old male with PMH DM2, mild mental retardation, hypothyroidism, CAD s/p PCI, CHF with EF 34%, presents for generalized weakness and diaphoresis that started last night. Pt is a [facility] resident. Pt was in his usual state of health until last night. He felt weak, fatigues and started having diaphoresis. His BS at home was low, does not remember how much. Pt drank orange juice and was fine after that. This morning though, pt woke up and felt similar symptoms and was told to come to ED. Denies cp, sob, palpitations, headache, neck pain, sick contacts/recent travel, cough, exertional cp/sob, abdominal pain, urinary symptoms, leg swelling, focal neurologic deificits. In ED, wbc 13.5, BS 47 initially, given amp D50 -> after whinch BS improved to 70, 126. BUN/Cr 76/5.9 (prev Cr 2.9), BNP 4060 (prev 09772, 8850), lipase nrml , serum osm 314, trop 0.03 (0.02-0.06). Given ASA 325, 1 amp d50, 1l NS bolus. 12point ROS as per HPI above, otherwise negative PMH: mild mental retardation, CHF s/p ICD placement, CAD s/p PCI, CKD stage 4, hypertension, hypothyroidism, DM type 2, BPH, resident of [facility] PSH: ICD, PCI Allergies: NKDA Family Hx: Reviewed and noncontributory Social Hx: Denies tobacco, alcohol and illicit drug use PMD: Rambo Present on Admission - Present on Admission Any Indicators Present on Admission: No History of DVT/PE: No History of Uncontrolled Diabetes: No Urinary Catheter: No Decubitus Ulcer Present: No Review of Systems - Review of Systems All systems: reviewed and no additional remarkable complaints except Review of Systems: as per HPI Past Patient History - Infectious Disease Hx of Infectious Diseases: None - Tetanus Immunizations Tetanus Immunization: Unknown - Past Medical History & Family History Past Medical History?: Yes - Past Social History Smoking Status: Never Smoked - CARDIAC Hx Cardiac Disorders: Yes (cardiac cath, coronary stent, pacemake w/ internal defibrillator) - PULMONARY Hx Respiratory Disorders: Yes Hx Chronic Obstructive Pulmonary Disease (COPD): Yes - NEUROLOGICAL Hx Neurological Disorder: Yes (MR) - HEENT Hx HEENT Problems: No - RENAL Hx Chronic Kidney Disease: Yes Hx Renal Failure: Yes - ENDOCRINE/METABOLIC Hx Endocrine Disorders: Yes Hx Diabetes Mellitus Type 1: Yes Hx Diabetes Mellitus Type 2: Yes Hx Hypothyroidism: Yes - HEMATOLOGICAL/ONCOLOGICAL Hx Blood Disorders: No - INTEGUMENTARY Hx Dermatological Problems: Yes - MUSCULOSKELETAL/RHEUMATOLOGICAL Hx Musculoskeletal Disorders: Yes Hx Falls: Yes - GASTROINTESTINAL Hx Gastrointestinal Disorders: No - GENITOURINARY/GYNECOLOGICAL Hx Genitourinary Disorders: No - PSYCHIATRIC Hx Psychophysiologic Disorder: Yes Hx Substance Use: No Other/Comment: Developmental delay. - SURGICAL HISTORY Hx Cardiac Catheterization: Yes Hx Coronary Stent: Yes Other/Comment: cardiac cath, pacemaker with internal defribilator - ANESTHESIA Hx Anesthesia: Yes Hx Anesthesia Reactions: No Hx Malignant Hyperthermia: No Meds Allergies/Adverse Reactions: Allergies Allergy/AdvReac Type Severity Reaction Status Date / Time No Known Allergies Allergy Verified 07/01/17 20:39 Physical Exam - Constitutional Appears: Non-toxic, No Acute Distress - Head Exam Head Exam: ATRAUMATIC, NORMOCEPHALIC - Eye Exam Eye Exam: EOMI, PERRL. absent: Conjunctival injection, Nystagmus, Scleral icterus Pupil Exam: NORMAL ACCOMODATION, PERRL. absent: Irregular, Miosis, Mydriatic, Unequal - ENT Exam ENT Exam: Mucous Membranes Dry - Neck Exam Neck exam: Positive for: Full Rom - Respiratory Exam Respiratory Exam: NORMAL BREATHING PATTERN. absent: Accessory Muscle Use, Rhonchi, Stridor Additional comments: + bibasilar crackles - Cardiovascular Exam Cardiovascular Exam: RRR, +S1, +S2. absent: Systolic Murmur - GI/Abdominal Exam GI & Abdominal Exam: Normal Bowel Sounds, Soft. absent: Distended, Firm, Guarding, Mass, Rebound, Tenderness Additional comments: obese, rounded abdomen - Extremities Exam Extremities exam: Positive for: pedal edema Additional comments: + bilateral chronic venous stasis changes, no increased warmth/fluctuance - Back Exam Back exam: NORMAL INSPECTION - Neurological Exam Neurological exam: Alert, Oriented x3 - Psychiatric Exam Psychiatric exam: Normal Affect, Normal Mood - Skin Skin Exam: Dry, Normal Color, Warm Results - Vital Signs Recent Vital Signs: Last Vital Signs Temp 97.6 F 07/01/17 20:41 Pulse 76 07/01/17 20:41 Resp 17 07/01/17 20:41 BP 148/75 07/01/17 20:41 Pulse Ox 95 07/01/17 20:41 - Labs Result Diagrams: 07/01/17 20:49 07/01/17 20:49 Labs: Laboratory Results - last 24 hr 07/01/17 07/01/17 07/01/17 20:49 20:49 20:49 WBC 13.5 H RBC 4.79 Hgb 14.7 Hct 43.9 MCV 91.6 MCH 30.7 MCHC 33.5 RDW 14.5 Plt Count 368 MPV 10.8 Gran % 82.6 H Lymph % (Auto) 5.5 L [place] % (Auto) 7.9 H Eos % (Auto) 3.6 Baso % (Auto) 0.4 Gran # 11.13 H Lymph # (Auto) 0.7 L [place] # (Auto) 1.1 H Eos # (Auto) 0.5 Baso # (Auto) 0.05 PT 11.5 INR 1.01 APTT 34.5 Sodium 143 Potassium 5.0 Chloride 107 Carbon Dioxide 19 L Anion Gap 21 H BUN 76 H Creatinine 5.9 H Est GFR ( Amer) 12 Est GFR (Non-Af Amer) 10 POC Glucose (mg/dL) Random Glucose 70 Serum Osmolality Calcium 9.5 Total Bilirubin 0.8 AST 21 ALT 18 Alkaline Phosphatase 72 Troponin I 0.03 D NT-Pro-B Natriuret Pep 4060 H Total Protein 8.6 H Albumin 4.2 Globulin 4.3 Albumin/Globulin Ratio 1.0 L Lipase 184 Blood Type Antibody Screen BBK History Checked 07/01/17 07/01/17 07/01/17 20:49 20:49 21:10 WBC RBC Hgb Hct MCV MCH MCHC RDW Plt Count MPV Gran % Lymph % (Auto) [place] % (Auto) Eos % (Auto) Baso % (Auto) Gran # Lymph # (Auto) [place] # (Auto) Eos # (Auto) Baso # (Auto) PT INR APTT Sodium Potassium Chloride Carbon Dioxide Anion Gap BUN Creatinine Est GFR ( Amer) Est GFR (Non-Af Amer) POC Glucose (mg/dL) 126 H Random Glucose Serum Osmolality 314 H Calcium Total Bilirubin AST ALT Alkaline Phosphatase Troponin I NT-Pro-B Natriuret Pep Total Protein Albumin Globulin Albumin/Globulin Ratio Lipase Blood Type A POSITIVE Antibody Screen Negative BBK History Checked Patient has bt Assessment & Plan - Assessment and Plan (Free Text) Assessment: 61 year old male with PMH DM2 (on home insulin), CHF with EF 34% (in 07/2016), mild mental retardation, CKD stage 4, hypothyroidism, BPH, [place] [facility] resident, presents for generalized weakness, diaphoresis, hypoglycemia: Hypoglycemia: 2/2 incorrect insulin usage vs oral antidiabetics induced vs infection vs insulinoma - Hold home antidiabetics and home insulin - CXR, UA, UCx, Blood culture, procal - wbc 13.5 - insulin, proinsulin, c peptide, beta hydroxybutarate - BS q 2h -> if normal, then switch to ACHS - f/u trop and ekg in AM - HHD/antidiabteic diet - D50 prn for BG<60 - ISS low ANNA on CKD: likely from dehydration - 1L NS bolus given in ed - D51/5 NS @ 60 - UA neg - calculate fena, renal US - daily cmp Hx of CAD s/p PCI and CHF: - NSR at 75 bpm, LAD, no ectopy, diffuse low voltage inf leads, ?LBBB, no st-t changes, ABNL EKG; unchanged compare with old ekg 01/2017 - echo 07/2016: ef 34%. four chamber dilation. Mild MR. Mod TR. RVSP 48 mmhg. Trace AR/PI. - f/u CXR - home ASA 81, plavix, carvedilol, vasotec, lasix. holding parameters given. Hx of hypothyroidism: - TSH - home synthroid Hx of BPH: - home flomax PPX: omeprazole, scds Diet: HHD/antidiabetic Discussed with Dr Christin Meyers. - Date & Time Date: 07/02/17 Time: 06:23
--- NOTE | 2017-07-01 21:52 | CT ---
EXAM: CT Head Without Intravenous Contrast CLINICAL HISTORY: 61 years old, male; Signs and symptoms; Walking, difficulty; Additional info: Weakness, near syncope TECHNIQUE: Axial computed tomography images of the head/brain without intravenous contrast. All CT scans at this facility use one or more dose reduction techniques, viz.: automated exposure control; ma/kV adjustment per patient size (including targeted exams where dose is matched to indication; i.e. head); or iterative reconstruction technique. Coronal and sagittal reformatted images were created and reviewed. COMPARISON: CT - HEAD W/O CONTRAST 2017-01-09 16:16 FINDINGS: Brain: Hrsb-bg-flpellks atrophy. No intracranial hemorrhage. No mass. Mild encephalomalacia within right temporal region. Minimal encephalomalacia within right frontal, left parietal, left occipital regions. Few scattered foci of decreased attenuation within periventricular/subcortical white matter. Probable chronic lacunar infarcts within basal ganglia. No definite edema. Ventricles: No hydrocephalus. Bones/joints: No acute fracture. Soft tissues: Unremarkable. Sinuses: Mild focal mucosal thickening of LEFT maxillary sinus. Mastoid air cells: No mastoid effusion. Orbits: Unremarkable as visualized. IMPRESSION: 1. Nonspecific white matter changes. Acute infarction may be CT occult within first 24 hours. If a focal deficit persists, consider followup CT or MRI for further evaluation. 2. Incidental/non-acute findings are described above.
[2017-07-01 22:14] LABS: VENOUS BLOOD GAS BASE EXCESS -6.4 mmol/L (0.0-2.0); VENOUS BLOOD GAS PO2 40 mm/Hg (30-55); VENOUS BLOOD PH 7.28 (7.32-7.43)
[2017-07-01] MEDS ORDERED: Dextrose 50% SYRINGE Inj (50 ml) IVP ONE (23:15)
[2017-07-01] MEDS ORDERED: Dextrose 50% SYRINGE Inj (50 ml) IVP PRN (23:18)
[2017-07-02] MEDS ORDERED: Dextrose 5%/0.45% NS 1,000 ML IV SCH (04:15)
[2017-07-02 04:35] LABS: URINE BILIRUBIN NEGATIVE (NEGATIVE); URINE BLOOD NEGATIVE (NEGATIVE); URINE GLUCOSE (UA) NEGATIVE (NEGATIVE); URINE LEUKOCYTE ESTERASE NEGATIVE Leu/uL (NEGATIVE); URINE PROTEIN NEGATIVE mg/dL (<30 mg/dL); URINE UROBILINOGEN 0.2 E.U./dL (<1 E.U./dL)
[2017-07-02 04:46] LABS: URINE APPEARANCE CLEAR (CLEAR); URINE COLOR YELLOW (YELLOW)
[2017-07-02] MEDS: Levothyroxine 125 MCG TAB PO SCH (06:24)
[2017-07-02] MEDS: Pantoprazole 40 mg EC Tab PO SCH (06:24)
[2017-07-02 07:11] LABS: BASO # 0.06 K/mm3 (0.0-2.0); BASO % 0.6 % (0.0-3.0); EOS # 0.5 (0.0-0.7); EOS % 5.3 % (1.5-5.0); GRAN # 7.47 (1.4-6.5); GRAN % 75.1 % (50.0-68.0); HEMOGLOBIN 13.3 g/dL (14.0-18.0); LYMPH # 0.9 (1.2-3.4); LYMPH % 8.5 % (22.0-35.0); MEAN CELL VOLUME 92.1 fl (80.0-105.0); MEAN CORPUSCULAR HGB CONC 32.5 g/dl (31.0-37.0); MEAN PLATELET VOLUME 10.6 fl (7.0-11.0); MONO % 10.5 % (1.0-6.0); RBC 4.44 10^6/uL (3.5-6.1); RED CELL DISTRIBUTION WIDTH 14.5 % (11.5-14.5)
[2017-07-02 07:43] LABS: ALB/GLOB RATIO 1.1 (1.1-1.8); ALBUMIN 3.9 g/dL (3.0-4.8); CALCIUM 8.6 mg/dL (8.4-10.5)
[2017-07-02] MEDS: Insulin Lispro (humaLOG) LOW Coverage SC SCH ×3 (08:57→21:14)
--- NOTE | 2017-07-02 09:48 | CARD ---
APPROVED REPORT EKG Measurement Heart [id number] [place] [id number] <Conclusion> V. Paced, A Sensed rhythm
--- NOTE | 2017-07-02 09:58 | RAD ---
HISTORY: weakness COMPARISON: 01/21/2017 FINDINGS: LUNGS: No active pulmonary disease. PLEURA: No significant pleural effusion identified, no pneumothorax apparent. CARDIOVASCULAR: Mild cardiomegaly. AICD. No congestive change. OSSEOUS STRUCTURES: No significant abnormalities. VISUALIZED UPPER ABDOMEN: Normal. OTHER FINDINGS: None. IMPRESSION: No active disease.
--- NOTE | 2017-07-02 10:00 | CARD ---
APPROVED REPORT EKG Measurement Heart [id number] <Conclusion> V. Paced, A. Sensed rhythm No change
[2017-07-02 15:15] LABS: CREATININE,RANDOM URINE 84 mg/dL
--- NOTE | 2017-07-02 17:02 | US ---
PROCEDURE: Ultrasound of the Kidneys HISTORY: prasad COMPARISON: None available. TECHNIQUE: Sonogram of the kidneys. FINDINGS: RIGHT KIDNEY: Measures: 11.1 cm. Diffusely increased cortical echogenicity. Diffuse renal cortical thinning. Upper pole simple cyst, 1.6 x 1.5 x 1.6 cm. No solid mass. No calculus or hydronephrosis. LEFT KIDNEY: Measures: 11.7 cm. Diffusely increased cortical echogenicity. Diffuse cortical thinning. Mid left renal cortical cyst, 1.5 x 1.1 x 1.2 cm. Upper pole simple cyst, 1.7 x 1.0 x 1.2 cm. No solid mass. No calculus or hydronephrosis. OTHER FINDINGS: None. IMPRESSION: Diffusely increased cortical echogenicity bilaterally consistent with medical renal disease. Bilateral small simple cysts. Otherwise unremarkable.
[2017-07-02] MEDS ORDERED: Albuterol-Ipratrop 3 mg / 0.5 (3 ml) UD IH STA (23:59)
[2017-07-03] MEDS: Pantoprazole 40 mg EC Tab PO SCH (05:21)
[2017-07-03] MEDS: Levothyroxine 125 MCG TAB PO SCH (05:21)
[2017-07-03 06:45] LABS: BASO # 0.05 K/mm3 (0.0-2.0); BASO % 0.4 % (0.0-3.0); EOS # 0.7 (0.0-0.7); EOS % 5.2 % (1.5-5.0); GRAN # 10.58 (1.4-6.5); GRAN % 80.3 % (50.0-68.0); HEMOGLOBIN 13.7 g/dL (14.0-18.0); LYMPH # 1.1 (1.2-3.4); LYMPH % 8.4 % (22.0-35.0); MEAN CELL VOLUME 92.4 fl (80.0-105.0); MEAN CORPUSCULAR HEMOGLOBIN 29.8 pg (25.0-35.0); MEAN CORPUSCULAR HGB CONC 32.2 g/dl (31.0-37.0); MEAN PLATELET VOLUME 10.4 fl (7.0-11.0); MONO # 0.8 (0.1-0.6); MONO % 5.7 % (1.0-6.0); RBC 4.6 10^6/uL (3.5-6.1); RED CELL DISTRIBUTION WIDTH 14.7 % (11.5-14.5); WHITE BLOOD COUNT 13.2 10^3/ul (4.5-11.0)
[2017-07-03 07:37] LABS: ALB/GLOB RATIO 1.2 (1.1-1.8); CALCIUM 9.4 mg/dL (8.4-10.5)
[2017-07-03] MEDS ORDERED: Sod Polystyrene Sulf 15 gm/60 ml Susp PO ONE (07:42)
[2017-07-03] MEDS: Insulin Lispro (humaLOG) LOW Coverage SC SCH ×4 (08:07→22:03)
[2017-07-03 08:52] LABS: ARTERIAL BLOOD GAS HCO3 16.6 mmol/L (21-28); ARTERIAL BLOOD GAS HEMOGLOBIN 13.5 g/dL (11.7-17.4); ARTERIAL BLOOD GAS O2 CAPACITY 18.4 mL/dl (16-24); ARTERIAL BLOOD GAS O2 CONTENT 16.2 ML/dl (15-23); ARTERIAL BLOOD GAS O2 SAT 88.1 % (95-98); ARTERIAL BLOOD GAS PCO2 25 mm/Hg (35-45); ARTERIAL BLOOD GAS PH 7.43 (7.35-7.45); ARTERIAL BLOOD GAS TCO2 17.4 mmol.L (22-28)
--- NOTE | 2017-07-03 08:52 | RAD ---
HISTORY: r/o infiltrate vs effusion COMPARISON: 07/01/2017 FINDINGS: LUNGS: No active pulmonary disease. PLEURA: No significant pleural effusion identified, no pneumothorax apparent. CARDIOVASCULAR: AICD. OSSEOUS STRUCTURES: No significant abnormalities. VISUALIZED UPPER ABDOMEN: Normal. OTHER FINDINGS: None. IMPRESSION: No active disease.
[2017-07-03] MEDS ORDERED: Sodium Chloride 0.45% 1,000 ML IV SCH (10:00)
[2017-07-03] MEDS ORDERED: cefTRIAXone 1 gm 1 GM/100 ML BAG IVPB SCH (12:15)
--- NOTE | 2017-07-03 13:51 | CP.PCM.PN ---
"Addendum entered and electronically signed by Jan Rubio DO 07/03/17 14:16: Low O2 Sat: CT Chest Ordered Original Note: <Jan Rubio - Last Filed: 07/03/17 13:46> Subjective - Date & Time of Evaluation Date of Evaluation: 07/03/17 Time of Evaluation: 07:30 - Subjective Subjective: Patient seen and examined at bedside. Patient had a low 02 saturation this morning requiring increase of NC to 5L then eventually to non-rebreather. At the time of examination patient had no complaints but did say that he did not want to use the BiPAP. Objective - Vital Signs/Intake and Output Vital Signs (last 24 hours): Temp Pulse Resp BP Pulse Ox 97.8 F 84 21 118/70 95 07/03/17 06:14 07/03/17 09:24 07/03/17 06:14 07/03/17 06:14 07/03/17 10:00 Intake and Output: 07/03/17 07/03/17 06:59 18:59 Intake Total 360 Output Total 500 Balance -140 - Medications Medications: Current Medications Aspirin (Aspirin Chewable) 81 mg PO DAILY [facility] Last Admin: 07/03/17 09:18 Dose: 81 mg Calcium Acetate (Phoslo) 667 mg PO WM [facility] Last Admin: 07/03/17 12:07 Dose: 667 mg Carvedilol (Coreg) 25 mg PO BID [facility] Last Admin: 07/03/17 12:07 Dose: Not Given Clopidogrel Bisulfate (Plavix) 75 mg PO DAILY [facility] Last Admin: 07/03/17 09:25 Dose: 75 mg Ergocalciferol (Drisdol 50,000 Intl Units Cap) 1 cap PO MON [facility] Sodium Chloride (Sodium Chloride 0.45%) 1,000 mls @ 80 mls/hr IV .[id number] [facility] Last Admin: 07/03/17 12:09 Dose: 80 mls/hr Ceftriaxone Sodium (Rocephin 1 Gram Ivpb) 1 gm in 100 mls @ 100 mls/hr IVPB DAILY [facility] PRN Reason: Protocol Last Admin: 07/03/17 13:24 Dose: 100 mls/hr Insulin Human Lispro (Humalog Low) 0 units SC ACHS [facility] PRN Reason: Protocol Last Admin: 07/03/17 08:07 Dose: Not Given Levothyroxine Sodium (Synthroid) 125 mcg PO 0600 [facility] Last Admin: 07/03/17 05:21 Dose: 125 mcg Pantoprazole Sodium (Protonix Ec Tab) 40 mg PO 0600 [facility] Last Admin: 07/03/17 05:21 Dose: 40 mg Sodium Bicarbonate (Sodium Bicarbonate Tab) 650 mg PO DAILY [facility] Last Admin: 07/03/17 09:25 Dose: 650 mg Tamsulosin HCl (Flomax) 0.4 mg PO DAILY [facility] Last Admin: 07/03/17 09:24 Dose: 0.4 mg - Labs Labs: 07/03/17 06:00 07/03/17 06:00 PT 11.5 SECONDS (9.4-12.5) 07/01/17 20:49 INR 1.01 (0.93-1.08) 07/01/17 20:49 APTT 34.5 Seconds (25.1-36.5) 07/01/17 20:49 - Constitutional Appears: Non-toxic, No Acute Distress - Head Exam Head Exam: ATRAUMATIC, NORMAL INSPECTION, NORMOCEPHALIC - Eye Exam Eye Exam: Normal appearance - ENT Exam ENT Exam: Mucous Membranes Moist - Neck Exam Neck Exam: Normal Inspection - Respiratory Exam Respiratory Exam: Clear to Ausculation Bilateral, NORMAL BREATHING PATTERN. absent: Rales, Rhonchi, Wheezes - Cardiovascular Exam Cardiovascular Exam: RRR, +S1, +S2 - GI/Abdominal Exam GI & Abdominal Exam: Soft. absent: Tenderness - Extremities Exam Extremities Exam: Normal Capillary Refill. absent: Pedal Edema - Neurological Exam Neurological Exam: Alert, Awake, Oriented x3 - Psychiatric Exam Psychiatric exam: Normal Affect, Normal Mood - Skin Skin Exam: Dry, Intact, Normal Color, Warm Assessment and Plan - Assessment and Plan (Free Text) Assessment: 61 year old male with PMH DM2 (on home insulin), CHF with EF 34% (in 07/2016), mild mental retardation, CKD stage 4, hypothyroidism, BPH, [facility] resident, presents for generalized weakness, diaphoresis, hypoglycemia: Plan: Hypoglycemia (Stable): 2/2 incorrect insulin usage vs oral antidiabetics induced vs infection vs insulinoma - HgBA1C: 6.6 - Hold home antidiabetics and home insulin - HHD/antidiabteic diet - D50 prn for BG<60 - ISS low ANNA on CKD (Acute): likely from dehydration - 1L NS bolus given in ed - D51/5 NS @ 60 - Renal US: Increased Echogenecity on kidney's b/l. and B/L simple Cyst. - Nephro Consulted (Dr. Winston) - Recs appreciated -Started 1/2NS @ 80mls/hr Will monitor for CHF exacerbation. UTI Urine Culture - POSITIVE for Gram negative Rods Start Rocephin 1g IV Daily. Low O2 Saturation ABG: Co2- 25 | pO2 - 48, HCO3 - 16.6 | pH-7/43 Pulm Consulted - (Sandra Cobb) Placed on Non-Room Breather. Leukocytosis Likely from UTI CXR (07/03): NEGATIVE Blood Culture: NEGATIVE Urine Culture: Positive as stated above. Hx of CAD s/p PCI and CHF: - NSR at 75 bpm, LAD, no ectopy, diffuse low voltage inf leads, ?LBBB, no st-t changes, ABNL EKG; unchanged compare with old ekg 01/2017 - echo 07/2016: ef 34%. four chamber dilation. Mild MR. Mod TR. RVSP 48 mmhg. Trace AR/PI. - home ASA 81, plavix, carvedilol, vasotec, lasix. holding parameters given. - Cardiology Consulted (Dr. Pineda) Hx of hypothyroidism: - TSH - home synthroid Hx of BPH: - home flomax PPX: Protonix, scds Diet: HHD/antidiabetic Patient seen and discussed with Attending Jan Rubio, PGY-1 <Oral Meyers B - Last Filed: 07/03/17 17:43> Objective - Vital Signs/Intake and Output Vital Signs (last 24 hours): Temp Pulse Resp BP Pulse Ox 97.8 F 75 21 118/70 95 07/03/17 06:14 07/03/17 14:00 07/03/17 06:14 07/03/17 06:14 07/03/17 10:00 Intake and Output: 07/03/17 07/03/17 06:59 18:59 Intake Total 360 Output Total 500 Balance -140 - Medications Medications: Current Medications Aspirin (Aspirin Chewable) 81 mg PO DAILY [facility] Last Admin: 07/03/17 09:18 Dose: 81 mg Calcium Acetate (Phoslo) 667 mg PO [facility] Last Admin: 07/03/17 12:07 Dose: 667 mg Carvedilol (Coreg) 25 mg PO BID [facility] Last Admin: 07/03/17 12:07 Dose: Not Given Clopidogrel Bisulfate (Plavix) 75 mg PO DAILY [facility] Last Admin: 07/03/17 09:25 Dose: 75 mg Ergocalciferol (Drisdol 50,000 Intl Units Cap) 1 cap PO MON [facility] Sodium Chloride (Sodium Chloride 0.45%) 1,000 mls @ 80 mls/hr IV .[id number] [facility] Last Admin: 07/03/17 12:09 Dose: 80 mls/hr Ceftriaxone Sodium (Rocephin 1 Gram Ivpb) 1 gm in 100 mls @ 100 mls/hr IVPB DAILY [facility] PRN Reason: Protocol Last Admin: 07/03/17 13:24 Dose: 100 mls/hr Linezolid (Zyvox 600mg/300ml D5w) 600 mg in 300 mls @ 200 mls/hr IVPB Q12 [facility] PRN Reason: Protocol Stop: 07/03/17 23:29 Insulin Human Lispro (Humalog Low) 0 units SC ACHS [facility] PRN Reason: Protocol Last Admin: 07/03/17 15:48 Dose: Not Given Levothyroxine Sodium (Synthroid) 125 mcg PO 0600 [facility] Last Admin: 07/03/17 05:21 Dose: 125 mcg Pantoprazole Sodium (Protonix Ec Tab) 40 mg PO 0600 [facility] Last Admin: 07/03/17 05:21 Dose: 40 mg Sodium Bicarbonate (Sodium Bicarbonate Tab) 650 mg PO DAILY [facility] Last Admin: 07/03/17 09:25 Dose: 650 mg Tamsulosin HCl (Flomax) 0.4 mg PO DAILY [facility] Last Admin: 07/03/17 09:24 Dose: 0.4 mg - Labs Labs: 07/03/17 06:00 07/03/17 06:00 PT 11.5 SECONDS (9.4-12.5) 07/01/17 20:49 INR 1.01 (0.93-1.08) 07/01/17 20:49 APTT 34.5 Seconds (25.1-36.5) 07/01/17 20:49 Attending/Attestation - Attestation I have personally seen and examined this patient.: Yes I have fully participated in the care of the patient.: Yes I have reviewed all pertinent clinical information, including history, physical exam and plan: Yes Notes (Text): I have seen and examined the patient at bedside. Agree with the above note with the following additions/ exceptions: Briefly this is 61 year old male with h/o DM-2, CHF (34%), mild MR, CKD, hypothyroidism, BPH, [facility] resident who was admitted for evaluation of generalized weakness, diaphoresis and hypoglycemia. Pateint is tolerating diet. Standng insulin is on hold. A1C is 6.7. Need insulin adjustment. Also has ANNA on CKD. Discussed with radio communications mechanician and ceo and president. Continue to hold diuretics for now and closely monitor for CHF exacerbation. He has UTI(gnr) on rocephin. He had hypoxia earlier. CT chest revealed ground glass opacities. Patient was started on solumedrol. He was also started on zyvox for bilateral LE cellulitis. ID consult will be obtained. Upon discharge patient will follow up with Dr Ricks. Dr Oral Meyers"
--- NOTE | 2017-07-03 15:12 | CT ---
PROCEDURE: CT Chest without contrast HISTORY: hypoxia COMPARISON: None. TECHNIQUE: Contiguous axial images were obtained through the chest without intravenous contrast enhancement. Sagittal and coronal reconstructions were performed. Radiation dose (DLP): 842.76 mGy-cm. This CT exam was performed using one or more of the following dose reduction techniques: Automated exposure control, adjustment of the mA and/or kV according to patient size, and/or use of iterative reconstruction technique. FINDINGS: LUNGS: Bilateral diffuse ground-glass opacity greatest at the lung bases. There also multi lobar small patchy areas of confluent opacity. Findings are nonspecific. , MEDIASTINUM: Unremarkable thoracic aorta. No aneurysm. Normal sized heart. Borderline dilatation main pulmonary artery to a 3.2 cm diameter. Mild mediastinal lymphadenopathy. Paratracheal lymph node is noted measuring up to 2 cm in short axis. Shotty subcentimeter mediastinal nodes are also evident. No hilar lymphadenopathy appreciated. AICD noted. Cardiomegaly. PLEURA: Small bilateral pleural effusion. No pneumothorax. BONES: No fracture. No destructive lesion. UPPER ABDOMEN: Multiple calcified hepatic and splenic granulomata. OTHER FINDINGS: None. IMPRESSION: Nonspecific diffuse bilateral ground-glass opacity, greater at the lung bases. There multi lobar patchy areas of confluent opacity as well. Possible multi lobar pneumonia. However common nonspecific and may reflect inflammatory etiology. Small bilateral pleural effusion. Cardiomegaly. AICD. Mild mediastinal lymphadenopathy.
--- NOTE | 2017-07-03 17:35 | CP.PCM.CON ---
History of Present Illness - History of Present Illness History of Present Illness: Pulmonary Consult Note Reason for consult: Hypoxia HPI Patient is 61yo male with PMhx of HTN, DM, obesity, CKD, mental retardation, CAD with stent, CHF EF 35%, admitted to telemetry with wekakness, diaphoresis, and hypoglycemia. This morning patient developed worsening SOB and hypoxia, and placed on NRB mask, CT chest obtained without contrast which demonstrated diffuse ground glass opacities. Pt has had worsening LE edema. Pt denies fever, chills, cough, chest pain, palpitations, MARK, dizziness. No other constitutional symptoms. History provided by HCP Melissa Flores PMH: mild mental retardation, CHF s/p ICD placement, CAD s/p PCI, CKD stage 4, hypertension, hypothyroidism, DM type 2, BPH, resident of senior care PSH: ICD, PCI Allergies: NKDA Family Hx: Reviewed and noncontributory Social Hx: Denies tobacco, alcohol and illicit drug use Review of Systems - Review of Systems Review of Systems: as per HPI Past Patient History - Infectious Disease Hx of Infectious Diseases: None - Tetanus Immunizations Tetanus Immunization: Unknown - Past Medical History & Family History Past Medical History?: Yes - Past Social History Smoking Status: Never Smoked - CARDIAC Hx Cardiac Disorders: Yes (cardiac cath, coronary stent, pacemake w/ internal defibrillator) - PULMONARY Hx Respiratory Disorders: Yes Hx Chronic Obstructive Pulmonary Disease (COPD): Yes - NEUROLOGICAL Hx Neurological Disorder: Yes (MR) - HEENT Hx HEENT Problems: No - RENAL Hx Chronic Kidney Disease: Yes Hx Renal Failure: Yes - ENDOCRINE/METABOLIC Hx Endocrine Disorders: Yes Hx Diabetes Mellitus Type 1: Yes Hx Diabetes Mellitus Type 2: Yes Hx Hypothyroidism: Yes - HEMATOLOGICAL/ONCOLOGICAL Hx Blood Disorders: No - INTEGUMENTARY Hx Dermatological Problems: Yes - MUSCULOSKELETAL/RHEUMATOLOGICAL Hx Musculoskeletal Disorders: Yes Hx Falls: Yes - GASTROINTESTINAL Hx Gastrointestinal Disorders: No - GENITOURINARY/GYNECOLOGICAL Hx Genitourinary Disorders: No - PSYCHIATRIC Hx Psychophysiologic Disorder: Yes Hx Substance Use: No Other/Comment: Developmental delay. - SURGICAL HISTORY Hx Cardiac Catheterization: Yes Hx Coronary Stent: Yes Other/Comment: cardiac cath, pacemaker with internal defribilator - ANESTHESIA Hx Anesthesia: Yes Hx Anesthesia Reactions: No Hx Malignant Hyperthermia: No Meds Allergies/Adverse Reactions: Allergies Allergy/AdvReac Type Severity Reaction Status Date / Time No Known Allergies Allergy Verified 07/01/17 20:39 - Medications Medications: Current Medications Aspirin (Aspirin Chewable) 81 mg PO DAILY [facility] Last Admin: 07/03/17 09:18 Dose: 81 mg Calcium Acetate (Phoslo) 667 mg PO WM [facility] Last Admin: 07/03/17 12:07 Dose: 667 mg Carvedilol (Coreg) 25 mg PO BID [facility] Last Admin: 07/03/17 12:07 Dose: Not Given Clopidogrel Bisulfate (Plavix) 75 mg PO DAILY [facility] Last Admin: 07/03/17 09:25 Dose: 75 mg Ergocalciferol (Drisdol 50,000 Intl Units Cap) 1 cap PO MON [facility] Ceftriaxone Sodium (Rocephin 1 Gram Ivpb) 1 gm in 100 mls @ 100 mls/hr IVPB DAILY [facility] PRN Reason: Protocol Last Admin: 07/03/17 13:24 Dose: 100 mls/hr Linezolid (Zyvox 600mg/300ml D5w) 600 mg in 300 mls @ 200 mls/hr IVPB Q12 [facility] PRN Reason: Protocol Stop: 07/03/17 23:29 Insulin Human Lispro (Humalog Low) 0 units SC ACHS [facility] PRN Reason: Protocol Last Admin: 07/03/17 15:48 Dose: Not Given Levothyroxine Sodium (Synthroid) 125 mcg PO 0600 [facility] Last Admin: 07/03/17 05:21 Dose: 125 mcg Methylprednisolone (Solu-Medrol) 40 mg IVP Q12 [facility] Pantoprazole Sodium (Protonix Ec Tab) 40 mg PO 0600 [facility] Last Admin: 07/03/17 05:21 Dose: 40 mg Sodium Bicarbonate (Sodium Bicarbonate Tab) 650 mg PO DAILY [facility] Last Admin: 07/03/17 09:25 Dose: 650 mg Tamsulosin HCl (Flomax) 0.4 mg PO DAILY [facility] Last Admin: 07/03/17 09:24 Dose: 0.4 mg Physical Exam - Constitutional Appears: Non-toxic, No Acute Distress - Head Exam Head Exam: NORMAL INSPECTION - Eye Exam Eye Exam: Normal appearance - ENT Exam ENT Exam: Mucous Membranes Moist - Neck Exam Neck exam: Positive for: Full Rom - Respiratory Exam Respiratory Exam: Rales, NORMAL BREATHING PATTERN - Cardiovascular Exam Cardiovascular Exam: REGULAR RHYTHM, +S1, +S2 - GI/Abdominal Exam GI & Abdominal Exam: Normal Bowel Sounds, Soft - Extremities Exam Additional comments: 3+ edema b/l - Neurological Exam Neurological exam: Alert, Oriented x3 Results - Vital Signs Recent Vital Signs: Last Vital Signs Temp 97.4 F L 07/03/17 17:03 Pulse 89 07/03/17 17:03 Resp 20 07/03/17 17:03 BP 117/81 07/03/17 17:03 Pulse Ox 100 07/03/17 17:03 - Labs Result Diagrams: 07/03/17 06:00 07/03/17 06:00 Labs: Laboratory Results - last 24 hr 07/02/17 07/02/17 07/02/17 06:30 19:05 21:03 WBC RBC Hgb Hct MCV MCH MCHC RDW Plt Count MPV Gran % Lymph % (Auto) Atkinson % (Auto) Eos % (Auto) Baso % (Auto) Gran # Lymph # (Auto) Atkinson # (Auto) Eos # (Auto) Baso # (Auto) pCO2 pO2 HCO3 ABG pH ABG Total CO2 ABG O2 Saturation ABG O2 Content ABG Base Excess ABG Hemoglobin ABG Carboxyhemoglobin POC ABG HHb (Measured) ABG Methemoglobin ABG O2 Capacity Hgb O2 Saturation FiO2 Sodium Potassium Chloride Carbon Dioxide Anion Gap BUN Creatinine Est GFR ( Amer) Est GFR (Non-Af Amer) POC Glucose (mg/dL) 152 H 154 H Random Glucose Hemoglobin A1c 6.6 H Calcium Phosphorus Magnesium Total Bilirubin AST ALT Alkaline Phosphatase Total Protein Albumin Globulin Albumin/Globulin Ratio 07/02/17 07/03/17 07/03/17 23:43 05:16 06:00 WBC 13.2 H D RBC 4.60 Hgb 13.7 L Hct 42.5 MCV 92.4 MCH 29.8 MCHC 32.2 RDW 14.7 H Plt Count 349 MPV 10.4 Gran % 80.3 H Lymph % (Auto) 8.4 L Atkinson % (Auto) 5.7 Eos % (Auto) 5.2 H Baso % (Auto) 0.4 Gran # 10.58 H Lymph # (Auto) 1.1 L Atkinson # (Auto) 0.8 H Eos # (Auto) 0.7 Baso # (Auto) 0.05 pCO2 pO2 HCO3 ABG pH ABG Total CO2 ABG O2 Saturation ABG O2 Content ABG Base Excess ABG Hemoglobin ABG Carboxyhemoglobin POC ABG HHb (Measured) ABG Methemoglobin ABG O2 Capacity Hgb O2 Saturation FiO2 Sodium Potassium Chloride Carbon Dioxide Anion Gap BUN Creatinine Est GFR ( Amer) Est GFR (Non-Af Amer) POC Glucose (mg/dL) 142 H 145 H Random Glucose Hemoglobin A1c Calcium Phosphorus Magnesium Total Bilirubin AST ALT Alkaline Phosphatase Total Protein Albumin Globulin Albumin/Globulin Ratio 07/03/17 07/03/17 07/03/17 06:00 07:32 08:45 WBC RBC Hgb Hct MCV MCH MCHC RDW Plt Count MPV Gran % Lymph % (Auto) Atkinson % (Auto) Eos % (Auto) Baso % (Auto) Gran # Lymph # (Auto) Atkinson # (Auto) Eos # (Auto) Baso # (Auto) pCO2 25 L pO2 48.0 L HCO3 16.6 L ABG pH 7.43 ABG Total CO2 17.4 L ABG O2 Saturation 88.1 L ABG O2 Content 16.2 ABG Base Excess -6.0 L ABG Hemoglobin 13.5 ABG Carboxyhemoglobin 2.0 H POC ABG HHb (Measured) 11.6 H ABG Methemoglobin 0.7 ABG O2 Capacity 18.4 Hgb O2 Saturation 85.7 L FiO2 40.0 Sodium 145 Potassium 5.6 H* Chloride 109 H Carbon Dioxide 21 Anion Gap 21 H BUN 72 H Creatinine 6.2 H Est GFR ( Amer) 11 Est GFR (Non-Af Amer) 9 POC Glucose (mg/dL) 92 Random Glucose 144 H Hemoglobin A1c Calcium 9.4 Phosphorus 7.4 H Magnesium 2.3 H Total Bilirubin 1.0 AST 21 ALT 17 Alkaline Phosphatase 58 Total Protein 7.5 Albumin 4.0 Globulin 3.5 Albumin/Globulin Ratio 1.2 07/03/17 07/03/17 11:20 16:18 WBC RBC Hgb Hct MCV MCH MCHC RDW Plt Count MPV Gran % Lymph % (Auto) Atkinson % (Auto) Eos % (Auto) Baso % (Auto) Gran # Lymph # (Auto) Atkinson # (Auto) Eos # (Auto) Baso # (Auto) pCO2 pO2 HCO3 ABG pH ABG Total CO2 ABG O2 Saturation ABG O2 Content ABG Base Excess ABG Hemoglobin ABG Carboxyhemoglobin POC ABG HHb (Measured) ABG Methemoglobin ABG O2 Capacity Hgb O2 Saturation FiO2 Sodium Potassium Chloride Carbon Dioxide Anion Gap BUN Creatinine Est GFR ( Amer) Est GFR (Non-Af Amer) POC Glucose (mg/dL) 122 H 137 H Random Glucose Hemoglobin A1c Calcium Phosphorus Magnesium Total Bilirubin AST ALT Alkaline Phosphatase Total Protein Albumin Globulin Albumin/Globulin Ratio - Imaging and Cardiology Chest x-ray Status: Image reviewed by me, Report reviewed by me CT scan - chest Status: Image reviewed by me, Report reviewed by me Assessment & Plan - Assessment and Plan (Free Text) Assessment: 61yo male with GGO and hypoxia CHF, Systolic Ground glass opacities on CT chest Hypoxia SOB - currently afebrile, HD stable, comfortable in NAD, on NRB, sat 97%, comfortable - CT chest reviewed, diffuse ground glass opacities, more prominent at the bases - WBC wnl, NO fever, chills, body aches, Procal NEG - hypoxia likely 2/2 diffuse GGO, which is likely the result of volume overload , in setting of poor EF, worsening CKD, LE edema, elevated ProBNP - although infectious and inflammatory etiology cannot be completely ruled out ( less likely given that procal is negative, WBC WNL, no fever/chills, cough) - would DC IVF - IV diuresis - Consult renal - repeat ECHO - cardiology eval - switch NRB to ventimask goal sat >90% - BIPAP at night, likely has KRISTI - DVT ppx - pulmonary will continue to follow
[2017-07-03] MEDS ORDERED: Vancomycin 1gm in NS 250ml 1 GM/250 ML BAG IVPB STA (20:39)
--- NOTE | 2017-07-03 21:10 | CON ---
DATE: 07/03/2017 The patient admitted for Dr. Oral Meyers. FAMILY PHYSICIAN: Dr. Jose Ricks. REFERRING MD: Dr. Meyers. REASON FOR CONSULTATION: Evaluation of the patient known to us from previous evaluations who presents with acute renal failure superimposed on chronic kidney disease stage IV. HISTORY OF PRESENT ILLNESS : The patient is a 61-year-old developmentally challenged white male with a history of chronic kidney disease stage IV. Baseline BUN is in the 40-50 range with a baseline creatinine in the 2.9-3.1 range. History of chronic medical renal disease, history of IDDM, hypertension, history of ASHD with cardiomyopathy status post AICD, history of PTCA stent x2, ejection fraction is 25-30% with valvular heart disease, MR/TR. History of secondary hyperparathyroidism, using binder therapy at home; history of metabolic acidosis, on sodium bicarbonate therapy; history of hypothyroidism, the patient is a resident of a halfway. The patient has a developmental disability. The patient presented to the hospital with increasing weakness and hypoglycemia. He was noted to have an elevated BUN and creatinine with a BUN in the 70s and a creatinine in the upper 5 to low 6 range. We were asked to help evaluate the patient to try and improve his renal parameters and to lower the BUN and creatinine back to his baseline levels. The patient is completely asymptomatic from the elevated BUN and creatinine. The patient had been using Lasix at home. Presently, he has no volume losses, no diarrhea. No nausea or vomiting. The patient states he was not dehydrated. The patient states that he has taken no new medications. PAST MEDICAL HISTORY: Significant for chronic kidney disease stage IV, history of IDDM, hypertension, ASHD with cardiomyopathy, PTCA/stent x2, history of mitral regurgitation, tricuspid regurgitation, history of AICD. Ejection fraction of 25-30%. History of secondary hyperparathyroidism, hypothyroidism, developmental disability and metabolic acidosis. MEDICATIONS AT HOME: Include that of glyburide, Flomax, sodium bicarbonate, omeprazole, Synthroid, Nizoral, insulin, Lasix, vitamin D, Vasotec, Plavix, Cipro in the past, Coreg and aspirin. ALLERGIES: NO KNOWN ALLERGIES TO MEDICATIONS. MEDICATIONS: Medications in hospital include that of aspirin, Coreg, vitamin D, Flomax, insulin, Lasix is on hold, Plavix, Protonix, sodium bicarbonate and Synthroid, lisinopril is on hold. SOCIAL HISTORY: No history of cigarette smoking. No history of alcohol use. The patient lives in a halfway. FAMILY HISTORY: Noncontributory. REVIEW OF SYSTEMS: The 10+ systems reviewed with the patient. All negative except for what is noted above. GENERAL: The patient states appetite and weight have been stable. ENT: Denies any hearing or visual problems. PULMONARY: No shortness of breath. No history of emphysema, bronchitis, pneumonia or COPD. CARDIAC: History of ASHD with cardiomyopathy, status post AICD stent and angioplasty. No ongoing chest pain or palpitations. GASTROINTESTINAL: No abdominal pain. No diarrhea, no constipation. No nausea. GENITOURINARY: History of chronic kidney disease stage IV. ENDOCRINE: History of diabetes mellitus with complications. History of secondary hyperparathyroidism. MUSCULOSKELETAL: No complaints. NEUROLOGICAL: No history of CVA, TIA, seizures or syncope. HEME: history of mild anemia in part secondary to chronic kidney disease. PAST PSYCHIATRIC HISTORY: Negative. PHYSICAL EXAMINATION GENERAL: The patient is currently seen sitting up in bed in . No acute distress and no uremic symptoms. VITAL SIGNS: Blood pressure is 118/70, temperature 97.8, pulse of 84. Respiratory rate is 21. Oxygen saturation 99%. The patient uses BiPap on an as-needed basis. HEENT: Normocephalic, atraumatic. Conjunctivae are pink. Sclerae are nonicteric. Pupils equal, reactive to light and accommodation. Extraocular muscles were intact. Posterior pharynx is normal. NECK: Supple. No neck vein distention. No thyromegaly, no lymphadenopathy. No bruits. CHEST: Clear to auscultation and percussion. No rales, rhonchi or wheezing. CARDIOVASCULAR: Shows a regular rate and rhythm. Positive AICD. Positive MR/TR. No rub. ABDOMEN: Soft. Bowel sounds normal. Mild obesity. No distention. No masses. No splenomegaly. No rebound or guarding. BACK: No CVAT. No spinal tenderness. EXTREMITIES: Show no cyanosis, no clubbing or edema. He has chronic stasis changes of his lower extremity bilaterally. Diminished lower extremity pulses. NEUROLOGIC: Shows him to be alert, oriented x3 with no gross focal motor or sensory deficits noted. LABORATORY DATA AND IMAGING STUDIES: Ultrasound done yesterday showed cortical thinning with chronic medical renal disease. This is unchanged from past studies. Chest x-ray showed no acute pulmonary disease. Head CT showed no acute changes. EKG showed a paced rhythm. Labs: CBC: White blood cell count 13.2, hemoglobin 13.7 with a platelet count of 349,000. Coags are normal. Blood gas showed a pH of 7.438, pCO2 of 25 and a pO2 of 48. Likely, a venous blood gas. Chemistries showed a sodium of 145, potassium today is 5.6, up from 4.7 from yesterday. Chloride is 109. CO2 was 21. BUN 72 down from a high of 76. Baseline BUN is in the 40 to 50 range. Creatinine is 6.2, up from 5.9. Creatinine is in the 2.9-3.1 range. Glucose is 144. Calcium 9.4. Phosphorus level is 7.4, down from 7.9. The patient is presently taking no binders. Magnesium level is 2.3. Liver enzymes are normal. Albumin is 4. Urine showed no significant protein. His random urine sodium was 66 with a creatinine of 84. The patient had been on Lasix. Microbiology: Blood cultures are negative at 24 hours. ASSESSMENT 1. Acute renal failure superimposed on chronic kidney disease stage IV. The patient has had multiple presentations with this type of scenario. In the past, it has been secondary to volume depletion and GI losses. At present, the patient states his oral intake had been adequate, but he had been using Lasix on a regular basis at 80 mg a day. Perhaps, the patient became volume depleted and in combination with PATTY inhibition, BUN and creatinine and potassium have elevated. The patient as per my discussion with Dr. Meyers will be started on IV fluid hydration cautiously. He does have a cardiomyopathy. I will hold any IV sodium bicarbonate this time as his CO2 level was 21. Agree with the dose of Kayexalate x1 given today. 2. History of insulin-dependent diabetes mellitus. Continue to monitor sugar levels closely as the patient in the past, has had low glucose levels. 3. History of atherosclerotic heart disease, cardiomyopathy, automatic implantable cardioverter-defibrillator, valvular heart disease, percutaneous transluminal coronary angioplasty stents. This all appears to be stable. The patient does have an ejection fraction of 25-30%, so will need to be cautious with IV fluid hydration. 4. History of secondary hyperparathyroidism. The patient will be started on a renal diet and he will receive binder therapy. 5. History of hypothyroidism. Continue thyroid replacement therapy. 6. Metabolic acidosis. The patient will continue low-dose sodium bicarbonate therapy. 7. History of hypertension. Blood pressure control is acceptable on present medication. 8. History of developmental disability, the patient lives in a halfway. PLAN 1. As discussed with Dr. Meyers, start cautiously IV fluid hydration. I expect his BUN and creatinine to fall back to baseline range within 24 to 48 hours. 2. Agree with Kayexalate x1 dose. 3. The patient should be placed on a low potassium renal diet along with binder therapy. 4. Continue to monitor accurate Is and Os. 5. Continue the daily labs. 6. Limit renal diagnostics as the patient has been evaluated by us multiple times in the past. 7. Encouraging that the patient has no uremic symptoms. There are no plans or thoughts to discuss with him, any type of renal replacement therapy. Thank you for letting me partake and share in the care of your patient. Rom Winston MD MTDD
[2017-07-03] MEDS: MethylPREDNISolone 40 mg Vial IVP SCH (21:24)
[2017-07-03] MEDS ORDERED: Linezolid 600 mg in D5W 300 ml 600 MG/300 ML BAG IVPB SCH (22:00)
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
[2017-07-04] MEDS: Pantoprazole 40 mg EC Tab PO SCH (05:23)
[2017-07-04] MEDS: Levothyroxine 125 MCG TAB PO SCH (05:23)
[2017-07-04 06:56] LABS: ALB/GLOB RATIO 1.1 (1.1-1.8); CALCIUM 8.8 mg/dL (8.4-10.5)
[2017-07-04 07:12] LABS: BASO # 0.01 K/mm3 (0.0-2.0); BASO % 0.1 % (0.0-3.0); EOS % 0.1 % (1.5-5.0); GRAN # 8.85 (1.4-6.5); GRAN % 96.7 % (50.0-68.0); LYMPH # 0.2 (1.2-3.4); LYMPH % 2.3 % (22.0-35.0); MEAN CELL VOLUME 92.6 fl (80.0-105.0); MEAN CORPUSCULAR HEMOGLOBIN 30.2 pg (25.0-35.0); MEAN CORPUSCULAR HGB CONC 32.7 g/dl (31.0-37.0); MEAN PLATELET VOLUME 10.8 fl (7.0-11.0); MONO # 0.1 (0.1-0.6); MONO % 0.8 % (1.0-6.0); PLATELET COUNT 331 10^3/uL (120.0-450.0); RED CELL DISTRIBUTION WIDTH 14.5 % (11.5-14.5); WHITE BLOOD COUNT 9.2 10^3/ul (4.5-11.0)
[2017-07-04] MEDS ORDERED: Sod Polystyrene Sulf 15 gm/60 ml Susp PO ONE (07:28)
[2017-07-04] MEDS: Insulin Lispro (humaLOG) LOW Coverage SC SCH ×5 (08:16→22:17)
[2017-07-04 08:47] LABS: LYMPHOCYTE 3 % (22.0-35.0); NEUTROPHIL 97 % (50.0-70.0)
[2017-07-04 08:48] LABS: PLATELET ESTIMATE NORMAL (NORMAL)
[2017-07-04 09:13] VITALS: RESP 20
[2017-07-04] MEDS: MethylPREDNISolone 40 mg Vial IVP SCH ×2 (09:45→22:18)
[2017-07-04] MEDS ORDERED: Ergocalciferol 50,000 Intl Units Cap PO SCH (10:00)
[2017-07-04] MEDS ORDERED: POLYETHYLENE GLYCOL 3350 17 GM/Dose PACKET PO ONE (11:28)
[2017-07-04 13:05] LABS: CALCIUM 9.2 mg/dL (8.4-10.5)
--- NOTE | 2017-07-04 13:55 | CP.PCM.PN ---
"<NaderkeliBrandenelva - Last Filed: 07/04/17 14:14> Subjective - Date & Time of Evaluation Date of Evaluation: 07/04/17 Time of Evaluation: 11:00 - Subjective Subjective: Patient Seen and examined at bedside. He was sitting up comfortably in bed. States that his SOB has improved and that he may be able to breath without the NR-Breather. Patient denies any chest pain or SOB. He states his distal b/l lower extremity tenderness has increased. He denies any fever, chills, abdominal or urinary symptoms. Cousin notified us yesterday that that lower extremity lesions are from skin graft that the patient got due to patterson. Objective - Vital Signs/Intake and Output Vital Signs (last 24 hours): Temp Pulse Resp BP Pulse Ox 97.9 F 90 20 112/70 95 07/04/17 09:12 07/04/17 10:00 07/04/17 09:12 07/04/17 09:44 07/04/17 09:12 Intake and Output: 07/04/17 07/04/17 06:59 18:59 Intake Total 300 Output Total 500 Balance -200 - Medications Medications: Current Medications Aspirin (Aspirin Chewable) 81 mg PO DAILY [facility] Last Admin: 07/04/17 09:44 Dose: 81 mg Calcium Acetate (Phoslo) 667 mg PO WM [facility] Last Admin: 07/04/17 12:12 Dose: 667 mg Carvedilol (Coreg) 25 mg PO BID [facility] Last Admin: 07/04/17 09:44 Dose: 25 mg Clopidogrel Bisulfate (Plavix) 75 mg PO DAILY [facility] Last Admin: 07/04/17 09:44 Dose: 75 mg Doxycycline Hyclate (Doryx) 100 mg PO Q12 [facility] PRN Reason: Protocol Stop: 07/12/17 22:01 Last Admin: 07/04/17 09:45 Dose: 100 mg Ergocalciferol (Drisdol 50,000 Intl Units Cap) 1 cap PO MON [facility] Last Admin: 07/04/17 09:45 Dose: 1 cap Meropenem 250 mg/ Sodium (Chloride) 100 mls @ 100 mls/hr IVPB Q12H [facility] PRN Reason: Protocol Stop: 07/12/17 20:46 Last Admin: 07/04/17 10:38 Dose: 100 mls/hr Insulin Human Lispro (Humalog Low) 0 units SC ACHS [facility] PRN Reason: Protocol Last Admin: 07/04/17 12:11 Dose: 2 units Levothyroxine Sodium (Synthroid) 125 mcg PO 0600 [facility] Last Admin: 07/04/17 05:23 Dose: 125 mcg Methylprednisolone (Solu-Medrol) 40 mg IVP Q12 [facility] Last Admin: 07/04/17 09:45 Dose: 40 mg Pantoprazole Sodium (Protonix Ec Tab) 40 mg PO 0600 [facility] Last Admin: 07/04/17 05:23 Dose: 40 mg Sodium Bicarbonate (Sodium Bicarbonate Tab) 650 mg PO DAILY [facility] Last Admin: 07/04/17 09:45 Dose: 650 mg Tamsulosin HCl (Flomax) 0.4 mg PO DAILY [facility] Last Admin: 07/04/17 09:45 Dose: 0.4 mg - Labs Labs: 07/04/17 05:30 07/04/17 12:50 PT 11.5 SECONDS (9.4-12.5) 07/01/17 20:49 INR 1.01 (0.93-1.08) 07/01/17 20:49 APTT 34.5 Seconds (25.1-36.5) 07/01/17 20:49 - Additional Findings Additional findings: - Constitutional Appears: Non-toxic, No Acute Distress - Head Exam Head Exam: ATRAUMATIC, NORMAL INSPECTION, NORMOCEPHALIC - Eye Exam Eye Exam: Normal appearance - ENT Exam ENT Exam: Mucous Membranes Moist - Neck Exam Neck Exam: Normal Inspection - Respiratory Exam Respiratory Exam: Clear to Ausculation Bilateral, NORMAL BREATHING PATTERN. absent: Rales, Rhonchi, Wheezes - Cardiovascular Exam Cardiovascular Exam: RRR, +S1, +S2 - GI/Abdominal Exam GI & Abdominal Exam: Soft. absent: Tenderness - Extremities Exam Extremities Exam: Bilateral lower extremity tenderness and erythema. Edema has decreased. - Neurological Exam Neurological Exam: Alert, Awake, Oriented x3 - Psychiatric Exam Psychiatric exam: Normal Affect, Normal Mood - Skin Skin Exam: Dry, Intact, Normal Color, Warm Assessment and Plan - Assessment and Plan (Free Text) Assessment: 61 year old male with PMH DM2 (on home insulin), CHF with EF 34% (in 07/2016), mild mental retardation, CKD stage 4, hypothyroidism, BPH, long-term resident, presents for generalized weakness, diaphoresis, hypoglycemia: Plan: Hypoglycemia (Stable): 2/2 incorrect insulin usage vs oral antidiabetics induced vs infection vs insulinoma - HgBA1C: 6.6 - Hold home antidiabetics and home insulin - HHD/antidiabteic diet - D50 prn for BG<60 - ISS low ANNA on CKD (Improving ): likely from dehydration - Renal US: Increased Echogenecity on kidney's b/l. and B/L simple Cyst. - Nephro Consulted (Dr. Winston) - Recs appreciated - DC'd fluids due to CHF exacerbation. UTI Urine Culture - POSITIVE for Gram negative Rods Meropenem 250 Q12H per ID Low O2 Saturation ABG: Co2- 25 | pO2 - 48, HCO3 - 16.6 | pH-7/43 Pulm Consulted - (Sandra Cobb) Placed Patient on Venti Mask. CT Chest: Nonspecific diffuse bilateral ground-glass opacity, greater at the lung bases. There multi lobar patchy areas of confluent opacity as well. Possible multi lobar pneumonia. However common nonspecific and may reflect inflammatory etiology. Small bilateral pleural effusion. Cardiomegaly. AICD. Mild mediastinal lymphadenopathy. B/L lower Extremity Cellulitis Vancomycin per ID. Wound Care. Leukocytosis (Resolved) Likely from UTI CXR (07/03): NEGATIVE Blood Culture: NEGATIVE Urine Culture: Positive as stated above. Hx of CAD s/p PCI and CHF: - NSR at 75 bpm, LAD, no ectopy, diffuse low voltage inf leads, ?LBBB, no st-t changes, ABNL EKG; unchanged compare with old ekg 01/2017 - echo 07/2016: ef 34%. four chamber dilation. Mild MR. Mod TR. RVSP 48 mmhg. Trace AR/PI. - home ASA 81, plavix, carvedilol, vasotec, lasix. holding parameters given. - Cardiology Consulted (Dr. Pineda) Hx of hypothyroidism: - TSH Normal. - home synthroid Hx of BPH: - home flomax PPX: Protonix, scds Diet: HHD/antidiabetic Patient seen and discussed with Attending Jan Rubio, PGY-1 <Cecile Rahman - Last Filed: 07/05/17 15:57> Objective - Vital Signs/Intake and Output Vital Signs (last 24 hours): Temp Pulse Resp BP Pulse Ox 97.5 F L 76 20 102/69 94 L 07/05/17 08:15 07/05/17 08:15 07/05/17 08:15 07/05/17 09:55 07/05/17 08:15 Intake and Output: 07/05/17 07/05/17 06:59 18:59 Intake Total 800 600 Output Total 400 650 Balance 400 -50 - Medications Medications: Current Medications Aspirin (Aspirin Chewable) 81 mg PO DAILY [facility] Last Admin: 07/05/17 09:54 Dose: 81 mg Calcium Acetate (Phoslo) 667 mg PO WM [facility] Last Admin: 07/05/17 13:42 Dose: 667 mg Carvedilol (Coreg) 25 mg PO BID [facility] Last Admin: 07/05/17 09:55 Dose: Not Given Clopidogrel Bisulfate (Plavix) 75 mg PO DAILY [facility] Last Admin: 07/05/17 09:56 Dose: 75 mg Doxycycline Hyclate (Doryx) 100 mg PO Q12 [facility] PRN Reason: Protocol Stop: 07/12/17 22:01 Last Admin: 07/05/17 09:55 Dose: 100 mg Ergocalciferol (Drisdol 50,000 Intl Units Cap) 1 cap PO MON [facility] Last Admin: 07/04/17 09:45 Dose: 1 cap Meropenem 250 mg/ Sodium (Chloride) 100 mls @ 100 mls/hr IVPB Q12 [facility] PRN Reason: Protocol Last Admin: 07/05/17 09:56 Dose: 100 mls/hr Insulin Human Lispro (Humalog Low) 0 units SC ACHS [facility] PRN Reason: Protocol Last Admin: 07/05/17 09:55 Dose: Not Given Levothyroxine Sodium (Synthroid) 125 mcg PO 0600 [facility] Last Admin: 07/05/17 06:05 Dose: 125 mcg Methylprednisolone (Solu-Medrol) 40 mg IVP Q12 [facility] Last Admin: 07/05/17 09:57 Dose: 40 mg Pantoprazole Sodium (Protonix Ec Tab) 40 mg PO 0600 [facility] Last Admin: 07/05/17 06:05 Dose: 40 mg Sodium Bicarbonate (Sodium Bicarbonate Tab) 650 mg PO DAILY [facility] Last Admin: 07/05/17 09:56 Dose: 650 mg Tamsulosin HCl (Flomax) 0.4 mg PO DAILY [facility] Last Admin: 07/05/17 09:55 Dose: 0.4 mg - Labs Labs: 07/05/17 06:20 07/05/17 06:20 PT 11.5 SECONDS (9.4-12.5) 07/01/17 20:49 INR 1.01 (0.93-1.08) 07/01/17 20:49 APTT 34.5 Seconds (25.1-36.5) 07/01/17 20:49 Attending/Attestation - Attestation I have personally seen and examined this patient.: Yes I have fully participated in the care of the patient.: Yes I have reviewed all pertinent clinical information, including history, physical exam and plan: Yes Notes (Text): 07/05/17 15:51 attending note; Patient seen and examined with resident. Patient is a 61 year old male with past medical history of diabetes, CHF (34%), mild MR, CKD, hypothyroidism, BPH, long-term resident who was admitted for evaluation of generalized weakness, diaphoresis and hypoglycemia. currently hypoglycemia is resolved. glyburide, insulin on hold. Continue regular insulin sliding scale. Pateint is tolerating diet. A1C is 6.7. Need insulin adjustment because of worsening renal failure. ANNA on CKD/Cardiorenal syndrome; Treated with IV Lasix with improvement in shortness of breath. Creatinine is 6.0. Hyperkalemia; secondary to worsening renal function. Started on low potassium diet. Kayexalate as needed. Nephrology evaluation appreciated. Hypoxia is resolving. Currently on oxygen nasal cannula.CT chest revealed ground glass opacities. Pulmonary evaluation appreciated. Patient was started on solumedrol. Bilateral LE cellulitis. currently on mropenem and doxycycline. ID consult will be obtained. case discussed with workers compensation claims specialist Dr. Elliott in detail. possible transfer [facility] as per family's request. case discussed with PMD Dr. Ricks in detail. discussed with patient's healthcare proxy/cousin Melissa in detail."
--- NOTE | 2017-07-04 17:55 | CP.PCM.CON ---
History of Present Illness - History of Present Illness History of Present Illness: 61 year old male with PMH of HTN, CAD S/P PCI, chronic CHF, hypothyroidism, learning disability, S/P AICD placement, chronic renal failure, DM, BPH was [place] in [place] [facility] [place] of generalized weakness and hypoglycemia. He was having dyspnea on exertion as well. He denies having fever or chills, has occasional cough, no chest pain, no headache or dizziness, no abdominal pain, no nausea or vomiting, no chest pain, no diarrhea, no dysuria. CT chest was done in the ED and it shows possible multilobar pneumonia. Infectious Diseases consult is requested to further evaluate and manage. Review of Systems - Review of Systems All systems: reviewed and no additional remarkable complaints except (as per HPI ) Past Patient History - Infectious Disease Hx of Infectious Diseases: None - Tetanus Immunizations Tetanus Immunization: Unknown - Past Medical History & Family History Past Medical History?: Yes - Past Social History Smoking Status: Never Smoked - CARDIAC Hx Cardiac Disorders: Yes (cardiac cath, coronary stent, pacemake w/ internal defibrillator) - PULMONARY Hx Respiratory Disorders: Yes Hx Chronic Obstructive Pulmonary Disease (COPD): Yes - NEUROLOGICAL Hx Neurological Disorder: Yes (MR) - HEENT Hx HEENT Problems: No - RENAL Hx Chronic Kidney Disease: Yes Hx Renal Failure: Yes - ENDOCRINE/METABOLIC Hx Endocrine Disorders: Yes Hx Diabetes Mellitus Type 1: Yes Hx Diabetes Mellitus Type 2: Yes Hx Hypothyroidism: Yes - HEMATOLOGICAL/ONCOLOGICAL Hx Blood Disorders: No - INTEGUMENTARY Hx Dermatological Problems: Yes - MUSCULOSKELETAL/RHEUMATOLOGICAL Hx Musculoskeletal Disorders: Yes Hx Falls: Yes - GASTROINTESTINAL Hx Gastrointestinal Disorders: No - GENITOURINARY/GYNECOLOGICAL Hx Genitourinary Disorders: No - PSYCHIATRIC Hx Psychophysiologic Disorder: Yes Hx Substance Use: No Other/Comment: Developmental delay. - SURGICAL HISTORY Hx Cardiac Catheterization: Yes Hx Coronary Stent: Yes Other/Comment: cardiac cath, pacemaker with internal defribilator - ANESTHESIA Hx Anesthesia: Yes Hx Anesthesia Reactions: No Hx Malignant Hyperthermia: No Meds Allergies/Adverse Reactions: Allergies Allergy/AdvReac Type Severity Reaction Status Date / Time No Known Allergies Allergy Verified 07/01/17 20:39 - Medications Medications: Current Medications Aspirin (Aspirin Chewable) 81 mg PO DAILY [facility] Last Admin: 07/03/17 09:18 Dose: 81 mg Calcium Acetate (Phoslo) 667 mg PO WM [facility] Last Admin: 07/03/17 18:04 Dose: 667 mg Carvedilol (Coreg) 25 mg PO BID [facility] Last Admin: 07/03/17 18:03 Dose: 25 mg Clopidogrel Bisulfate (Plavix) 75 mg PO DAILY [facility] Last Admin: 07/03/17 09:25 Dose: 75 mg Doxycycline Hyclate (Doryx) 100 mg PO Q12 [facility] PRN Reason: Protocol Stop: 07/12/17 22:01 Last Admin: 07/03/17 21:23 Dose: 100 mg Ergocalciferol (Drisdol 50,000 Intl Units Cap) 1 cap PO MON [facility] Meropenem 250 mg/ Sodium (Chloride) 100 mls @ 100 mls/hr IVPB Q12H [facility] PRN Reason: Protocol Stop: 07/12/17 20:46 Last Admin: 07/03/17 21:24 Dose: 100 mls/hr Insulin Human Lispro (Humalog Low) 0 units SC ACHS [facility] PRN Reason: Protocol Last Admin: 07/03/17 22:03 Dose: Not Given Levothyroxine Sodium (Synthroid) 125 mcg PO 0600 [facility] Last Admin: 07/03/17 05:21 Dose: 125 mcg Methylprednisolone (Solu-Medrol) 40 mg IVP Q12 [facility] Last Admin: 07/03/17 21:24 Dose: 40 mg Pantoprazole Sodium (Protonix Ec Tab) 40 mg PO 0600 [facility] Last Admin: 07/03/17 05:21 Dose: 40 mg Sodium Bicarbonate (Sodium Bicarbonate Tab) 650 mg PO DAILY [facility] Last Admin: 07/03/17 09:25 Dose: 650 mg Tamsulosin HCl (Flomax) 0.4 mg PO DAILY [facility] Last Admin: 07/03/17 09:24 Dose: 0.4 mg Physical Exam - Constitutional Appears: Chronically Ill - Head Exam Head Exam: NORMAL INSPECTION - Respiratory Exam Respiratory Exam: Decreased Breath Sounds - Cardiovascular Exam Cardiovascular Exam: +S1, +S2 - GI/Abdominal Exam GI & Abdominal Exam: Soft. absent: Tenderness Results - Vital Signs Recent Vital Signs: Last Vital Signs Temp 97.4 F L 07/03/17 17:03 Pulse 81 07/03/17 18:03 Resp 20 07/03/17 17:03 BP 117/81 07/03/17 18:03 Pulse Ox 100 07/03/17 17:03 - Labs Result Diagrams: 07/04/17 05:30 07/04/17 12:50 Labs: Laboratory Results - last 24 hr 07/02/17 07/02/17 07/03/17 06:30 23:43 05:16 WBC RBC Hgb Hct MCV MCH MCHC RDW Plt Count MPV Gran % Lymph % (Auto) [place] % (Auto) Eos % (Auto) Baso % (Auto) Gran # Lymph # (Auto) [place] # (Auto) Eos # (Auto) Baso # (Auto) pCO2 pO2 HCO3 ABG pH ABG Total CO2 ABG O2 Saturation ABG O2 Content ABG Base Excess ABG Hemoglobin ABG Carboxyhemoglobin POC ABG HHb (Measured) ABG Methemoglobin ABG O2 Capacity Hgb O2 Saturation FiO2 Sodium Potassium Chloride Carbon Dioxide Anion Gap BUN Creatinine Est GFR ( Amer) Est GFR (Non-Af Amer) POC Glucose (mg/dL) 142 H 145 H Random Glucose Hemoglobin A1c 6.6 H Calcium Phosphorus Magnesium Total Bilirubin AST ALT Alkaline Phosphatase C-Reactive Protein Total Protein Albumin Globulin Albumin/Globulin Ratio 07/03/17 07/03/17 07/03/17 06:00 06:00 06:00 WBC 13.2 H D RBC 4.60 Hgb 13.7 L Hct 42.5 MCV 92.4 MCH 29.8 MCHC 32.2 RDW 14.7 H Plt Count 349 MPV 10.4 Gran % 80.3 H Lymph % (Auto) 8.4 L [place] % (Auto) 5.7 Eos % (Auto) 5.2 H Baso % (Auto) 0.4 Gran # 10.58 H Lymph # (Auto) 1.1 L [place] # (Auto) 0.8 H Eos # (Auto) 0.7 Baso # (Auto) 0.05 pCO2 pO2 HCO3 ABG pH ABG Total CO2 ABG O2 Saturation ABG O2 Content ABG Base Excess ABG Hemoglobin ABG Carboxyhemoglobin POC ABG HHb (Measured) ABG Methemoglobin ABG O2 Capacity Hgb O2 Saturation FiO2 Sodium 145 Potassium 5.6 H* Chloride 109 H Carbon Dioxide 21 Anion Gap 21 H BUN 72 H Creatinine 6.2 H Est GFR ( Amer) 11 Est GFR (Non-Af Amer) 9 POC Glucose (mg/dL) Random Glucose 144 H Hemoglobin A1c Calcium 9.4 Phosphorus 7.4 H Magnesium 2.3 H Total Bilirubin 1.0 AST 21 ALT 17 Alkaline Phosphatase 58 C-Reactive Protein 20.60 H Total Protein 7.5 Albumin 4.0 Globulin 3.5 Albumin/Globulin Ratio 1.2 07/03/17 07/03/17 07/03/17 07:32 08:45 11:20 WBC RBC Hgb Hct MCV MCH MCHC RDW Plt Count MPV Gran % Lymph % (Auto) [place] % (Auto) Eos % (Auto) Baso % (Auto) Gran # Lymph # (Auto) [place] # (Auto) Eos # (Auto) Baso # (Auto) pCO2 25 L pO2 48.0 L HCO3 16.6 L ABG pH 7.43 ABG Total CO2 17.4 L ABG O2 Saturation 88.1 L ABG O2 Content 16.2 ABG Base Excess -6.0 L ABG Hemoglobin 13.5 ABG Carboxyhemoglobin 2.0 H POC ABG HHb (Measured) 11.6 H ABG Methemoglobin 0.7 ABG O2 Capacity 18.4 Hgb O2 Saturation 85.7 L FiO2 40.0 Sodium Potassium Chloride Carbon Dioxide Anion Gap BUN Creatinine Est GFR ( Amer) Est GFR (Non-Af Amer) POC Glucose (mg/dL) 92 122 H Random Glucose Hemoglobin A1c Calcium Phosphorus Magnesium Total Bilirubin AST ALT Alkaline Phosphatase C-Reactive Protein Total Protein Albumin Globulin Albumin/Globulin Ratio 07/03/17 07/03/17 16:18 21:06 WBC RBC Hgb Hct MCV MCH MCHC RDW Plt Count MPV Gran % Lymph % (Auto) [place] % (Auto) Eos % (Auto) Baso % (Auto) Gran # Lymph # (Auto) [place] # (Auto) Eos # (Auto) Baso # (Auto) pCO2 pO2 HCO3 ABG pH ABG Total CO2 ABG O2 Saturation ABG O2 Content ABG Base Excess ABG Hemoglobin ABG Carboxyhemoglobin POC ABG HHb (Measured) ABG Methemoglobin ABG O2 Capacity Hgb O2 Saturation FiO2 Sodium Potassium Chloride Carbon Dioxide Anion Gap BUN Creatinine Est GFR ( Amer) Est GFR (Non-Af Amer) POC Glucose (mg/dL) 137 H 137 H Random Glucose Hemoglobin A1c Calcium Phosphorus Magnesium Total Bilirubin AST ALT Alkaline Phosphatase C-Reactive Protein Total Protein Albumin Globulin Albumin/Globulin Ratio Assessment & Plan - Assessment and Plan (Free Text) Plan: Assessment Systemic Inflammatory response syndrome, consider sepsis due to HCAP HTN CAD S/P PCI chronic CHF hypothyroidism learning disability S/P AICD placement chronic renal failure DM BPH Plan Started the patient on a dose of IV Vancomycin, and started Doxycycline and Merrem pending blood cx, PCT urine cx showing only <10k gram negative bacilli will monitor clinical response
--- NOTE | 2017-07-04 20:29 | CARD ---
APPROVED REPORT EKG Measurement Heart [id number] <Conclusion> V. Paced, A. Sensed rhythm Abnormal ECG
--- NOTE | 2017-07-04 21:47 | PN ---
DATE: REASON FOR CONSULTATION AND FOLLOWUP: Congestive heart failure, cardiomyopathy, coronary artery disease status post AICD, admitted with hypoglycemia. SUBJECTIVE: The patient denies any chest pain, shortness of breath or any palpitation. OBJECTIVE: GENERAL: Not in apparent distress. VITAL SIGNS: Temperature afebrile, heart rate 80, blood pressure 112/70. HEENT: PERRLA. Extraocular muscles intact. NECK: Supple. No carotid bruit or thyromegaly. CHEST: Clear to auscultation. HEART: S1 and S2, regular. ABDOMEN: Soft. EXTREMITIES: Clubbing and cyanosis negative. LABORATORY DATA: Blood workup as follows: WBC 9.8, hemoglobin 13, hematocrit 39.8, platelet count 331. Chemistry shows sodium 143, potassium 5.6, chloride 106, carbon dioxide 18, anion gap of 24, BUN and creatinine are 25 and 0.9. IMPRESSION: admitting him with severe hypoglycemia 45, acute kidney injury and chronic renal insufficiency, coronary artery disease status post stent in the past, status post percutaneous transluminal coronary angioplasty, status post automatic implantable cardioverter defibrillator, severe cardiomyopathy, being followed at [facility] by Dr. Wright, advanced renal insufficiency, uncontrolled diabetes, status post automatic implantable cardioverter defibrillator, status post defibrillator change 3 weeks ago, being followed by Dr. Wright and Dr. Elliott at [facility], history of percutaneous transluminal coronary angioplasty a year ago. RECOMMENDATION: Continue to monitor renal function, decrease the dose of hypoglycemic agent because of worsened renal insufficiency, continue aspirin, continue Plavix, continue clopidogrel. CVS status is stable. No further cardiac workup is planned. The patient followed at [facility], the patient is stable, can be discharged. Follow up [facility]. We will follow with you. Thank you Dr. Rahman, for providing us the opportunity in taking care of Andrew Reece. Ayad Pineda MD cc: Dr. Rahman.
[2017-07-05] MEDS: Pantoprazole 40 mg EC Tab PO SCH (06:05)
[2017-07-05] MEDS: Levothyroxine 125 MCG TAB PO SCH (06:05)
[2017-07-05 06:47] LABS: GRAN # 12.78 (1.4-6.5); GRAN % 94.8 % (50.0-68.0); HEMOGLOBIN 12.5 g/dL (14.0-18.0); LYMPH # 0.3 (1.2-3.4); LYMPH % 1.9 % (22.0-35.0); MEAN CELL VOLUME 91.7 fl (80.0-105.0); MEAN CORPUSCULAR HEMOGLOBIN 30.3 pg (25.0-35.0); MEAN CORPUSCULAR HGB CONC 33.1 g/dl (31.0-37.0); MEAN PLATELET VOLUME 10.3 fl (7.0-11.0); MONO # 0.5 (0.1-0.6); MONO % 3.3 % (1.0-6.0); RBC 4.12 10^6/uL (3.5-6.1); RED CELL DISTRIBUTION WIDTH 14.4 % (11.5-14.5); WHITE BLOOD COUNT 13.5 10^3/ul (4.5-11.0)
[2017-07-05 07:11] LABS: ALB/GLOB RATIO 1.1 (1.1-1.8); ALBUMIN 3.9 g/dL (3.0-4.8); CALCIUM 9.1 mg/dL (8.4-10.5)
--- NOTE | 2017-07-05 08:47 | PN ---
DATE: 07/04/2017 SUBJECTIVE: The patient is seen sitting in bed. He is awake. He is alert. He is comfortable. He does not appear to be in any kind of distress. He denies any shortness of breath. He denies any chest tightness. PHYSICAL EXAMINATION: GENERAL: Obese elderly male sitting in bed. VITAL SIGNS: Blood pressure 112/70, heart rate 78, respiratory rate 20, temperature 97.9. HEENT: Normocephalic, atraumatic. NECK: Supple, no JVD. LUNGS: Bilateral equal air entry, bilateral equal expansion, no rales. CARDIAC: S1 and S2, regular rate and rhythm, no murmur, no rub. ABDOMEN: Obese, distended, soft, nontender, bowel sounds present. EXTREMITIES: No lower extremity edema. INTAKE AND OUTPUT: 300/500 (?). LABORATORY DATA: WBC 9, hemoglobin 13, hematocrit 40, platelets 331. Sodium 143, potassium 5.3, chloride 106, CO2 18, BUN 83, creatinine 5.9, glucose 226, calcium 9.2. Urine sodium 66, urine creatinine 84. Urine protein negative, urine blood negative. Urine culture gram-negative eric (?). Chest CT, nonspecific bilateral ground-glass opacity, greater on the bases, multilobar patchy areas confluent opacity, multilobar pneumonia (?). CURRENT MEDICATIONS: Aspirin, Coreg 25 b.i.d., doxycycline 100 every 12, Drisdol, Flomax, meropenem 250 every 12, PhosLo 667 t.i.d., Plavix 75, Protonix, sodium bicarbonate 650 daily, Solu-Medrol 40 . Kaity Helms MD
[2017-07-05] MEDS ORDERED: Sod Polystyrene Sulf 15 gm/60 ml Susp PO ONE (09:46)
[2017-07-05] MEDS: Insulin Lispro (humaLOG) LOW Coverage SC SCH ×3 (09:55→21:15)
[2017-07-05] MEDS: MethylPREDNISolone 40 mg Vial IVP SCH (09:57)
--- NOTE | 2017-07-05 11:58 | CP.PCM.PN ---
Objective - Vital Signs/Intake and Output Vital Signs (last 24 hours): Temp Pulse Resp BP Pulse Ox 97.5 F L 76 20 102/69 94 L 07/05/17 08:15 07/05/17 08:15 07/05/17 08:15 07/05/17 09:55 07/05/17 08:15 Intake and Output: 07/05/17 07/05/17 06:59 18:59 Intake Total 800 Output Total 400 Balance 400 - Medications Medications: Current Medications Aspirin (Aspirin Chewable) 81 mg PO DAILY [facility] Last Admin: 07/05/17 09:54 Dose: 81 mg Calcium Acetate (Phoslo) 667 mg PO WM [facility] Last Admin: 07/05/17 09:56 Dose: 667 mg Carvedilol (Coreg) 25 mg PO BID [facility] Last Admin: 07/05/17 09:55 Dose: Not Given Clopidogrel Bisulfate (Plavix) 75 mg PO DAILY [facility] Last Admin: 07/05/17 09:56 Dose: 75 mg Doxycycline Hyclate (Doryx) 100 mg PO Q12 [facility] PRN Reason: Protocol Stop: 07/12/17 22:01 Last Admin: 07/05/17 09:55 Dose: 100 mg Ergocalciferol (Drisdol 50,000 Intl Units Cap) 1 cap PO MON [facility] Last Admin: 07/04/17 09:45 Dose: 1 cap Meropenem 250 mg/ Sodium (Chloride) 100 mls @ 100 mls/hr IVPB Q12 [facility] PRN Reason: Protocol Last Admin: 07/05/17 09:56 Dose: 100 mls/hr Insulin Human Lispro (Humalog Low) 0 units SC ACHS [facility] PRN Reason: Protocol Last Admin: 07/05/17 09:55 Dose: Not Given Levothyroxine Sodium (Synthroid) 125 mcg PO 0600 [facility] Last Admin: 07/05/17 06:05 Dose: 125 mcg Methylprednisolone (Solu-Medrol) 40 mg IVP Q12 [facility] Last Admin: 07/05/17 09:57 Dose: 40 mg Pantoprazole Sodium (Protonix Ec Tab) 40 mg PO 0600 [facility] Last Admin: 07/05/17 06:05 Dose: 40 mg Sodium Bicarbonate (Sodium Bicarbonate Tab) 650 mg PO DAILY [facility] Last Admin: 07/05/17 09:56 Dose: 650 mg Tamsulosin HCl (Flomax) 0.4 mg PO DAILY [facility] Last Admin: 07/05/17 09:55 Dose: 0.4 mg - Labs Labs: 07/05/17 06:20 07/05/17 06:20 PT 11.5 SECONDS (9.4-12.5) 07/01/17 20:49 INR 1.01 (0.93-1.08) 07/01/17 20:49 APTT 34.5 Seconds (25.1-36.5) 07/01/17 20:49
--- NOTE | 2017-07-05 15:52 | PN ---
DATE: 07/05/2017 REASON FOR CONSULTATION AND FOLLOWUP: Congestive heart failure; cardiomyopathy; coronary artery disease, status post AICD; admitted with hypoglycemia and worsening renal insufficiency. SUBJECTIVE: The patient denies any chest pain, shortness of breath, or any palpitation. PHYSICAL EXAMINATION: GENERAL: Not in apparent distress. VITAL SIGNS: Temperature afebrile, heart rate 76, blood pressure 102/69. HEENT: PERRLA. Extraocular motions intact. NECK: Supple. No carotid bruit or thyromegaly. CHEST: Clear to auscultation. HEART: S1 and S2, regular. ABDOMEN: Soft. EXTREMITIES: Clubbing and cyanosis negative. LABORATORY DATA: Blood workup as follows: WBC 13.8, hemoglobin 12.5, hematocrit 37.8, platelet count 312. Chemistry shows sodium 141, potassium 5.4, chloride 106, carbon dioxide 18, anion gap of 21, BUN 99, and creatinine 5.7. IMPRESSION AND PLAN: Acute kidney injury; chronic renal insufficiency; cardiomyopathy; coronary artery disease, status post automatic implantable cardioverter defibrillator, apparently 3 weeks ago generator change automatic implantable cardioverter defibrillator; history of coronary artery disease, status post stent, being followed by Dr. Elliott at [facility] and Dr. Wright at [facility]. The patient is stable. Okay to be discharge from cardiology point of view. Monitor renal function closely and follow up upon discharge at [facility]. In the interim, continue aspirin, continue Coreg, continue Plavix 75 mg daily. Monitor closely. Thank you, Dr. Rahman, for providing us the opportunity in taking care of Andrew Reece. Discussed with Dr. Rahman. Ayad Pineda MD
[2017-07-05 18:07] LABS: C-PEPTIDE 17.74 ng/mL (0.80-3.85)
[2017-07-05 18:56] VITALS: BP 113/83; PULSE 89; TEMP 98; O2SAT 93
--- NOTE | 2017-07-05 18:59 | PN ---
DATE: SUBJECTIVE: The patient is currently seen sitting up in bed eating his dinner. He remains on IV antibiotics for possible pneumonia. The patient's BUN and creatinine remained elevated despite attempted IV fluid hydration which had been discontinued. MEDICATIONS: Medication list reviewed. The patient is on aspirin, Coreg, doxycycline, vitamin D, Flomax, insulin, meropenem, PhosLo, Plavix, Protonix, sodium bicarbonate, Solu-Medrol, and Synthroid. OBJECTIVE: INTAKE/OUTPUT: Intake 1640, output 900. VITAL SIGNS: Blood pressure is 102/69, temperature 97.5, respiratory rate is 20 with a pulse of 76, pulse ox is 94%. HEENT: Show him to be normocephalic, atraumatic. Conjunctivae remain pink. Sclerae nonicteric. NECK: Supple. No neck vein distention. CHEST: Clear to auscultation and percussion with no audible rales, rhonchi, or wheezing. CARDIOVASCULAR: Shows a regular rate and rhythm. Positive AICD. MR/TR/AI. No rub. ABDOMEN: Soft. Bowel sounds normal. Mild obesity. No rebound or guarding. EXTREMITIES: Show no cyanosis or clubbing. He has 1+ pitting edema of his lower extremity with chronic stasis changes in his lower extremity bilaterally. NEURO: Shows him to be alert and oriented. No asterixis. No gross focal neurological deficits noted. LABORATORY DATA AND IMAGING: CBC: White blood cell count today 13.5, hemoglobin 12.5 with a platelet count of 312,000. Coags are normal. Chemistries: Sodium today 141, potassium remains mildly elevated at 5.4, chloride 107, CO2 is 18, despite taking oral sodium bicarbonate therapy. BUN is 99, well above his baseline level which is in the 40 to 50 range. His BUN has increased from 76 to 99 during present hospitalization. Creatinine of 5.9 on admission, currently 5.7 with a high of 6.2. Baseline creatinine again is in the 2.9 to 3.1 range. Glucose 203. Calcium 9.1. Phosphorus is elevated at 8.8. The patient is on binder therapy and a renal diet. Liver enzymes are normal. Albumin is 3.9. Urine studies: Urine sodium was 66 with urine creatinine of 84, fractional excretion of sodium is greater than 1%. ASSESSMENT: 1. Acute renal failure superimposed on chronic kidney disease stage 4. It was initially felt that the patient was volume depleted, taking diuretics along with PATTY inhibitors. He has not had the appropriate response to IV fluid hydration as he had in the past. The patient continues to remain mildly hyperkalemic and acidotic. He does have a history of cardiomyopathy. He is developing lower extremity edema and IV fluids were discontinued. I will obtain a renal ultrasound and I will obtain a urine Jamin stain. I will follow causes of his elevated BUN and creatinine. Of note, the patient does follow with Dr. Roberto Elliott at [facility] at the [facility]. 2. History of insulin-dependent diabetes mellitus. Continue to monitor sugars closely. 3. History of atherosclerotic heart disease with cardiomyopathy, ejection fraction less than 25% to 30% range. He has an automatic implantable cardioverter-defibrillator. He is status post angioplasty and stents. He has mild valvular heart disease. 4. History of secondary hyperparathyroidism. The patient will continue on renal diet. Continue binder therapy. Phosphorus level remains elevated at 8.8. 5. History of metabolic acidosis. We will continue sodium bicarbonate therapy. I will increase dose of sodium bicarbonate to four times a day. 6. Mild hyperkalemia. The patient is status post one dose of Kayexalate today. 7. History of hypertension. Blood pressure control is acceptable. 8. History of developmental disability. The patient lives in a senior care. PLAN: 1. Discussed with the patient. I am concerned about his elevated BUN and creatinine with a relatively poor response to IV fluid hydration and stopping his PATTY inhibitor. 2. We will follow causes of acute renal failure as noted above. 3. I am not certain that the patient does have a pneumonia, but he had been started on antibiotic therapy under the guidance of Infectious Disease. We will continue this. 4. Monitor for any uremic symptoms. The patient presently has none. 5. Discussed with the patient the need for verr very close followup when he leaves the hospital with Dr. Elliott at [facility]. 6. Continue to monitor accurate I's and O's, and daily labs. Rom Winston MD
--- NOTE | 2017-07-06 04:59 | PN ---
DATE: SUBJECTIVE: Mr. Reece was seen earlier this morning in room 361, bed 1. The patient is in bed, in no acute distress. Feeling overall much better, he states. PHYSICAL EXAMINATION: VITAL SIGNS: Temperature is 98, blood pressure is 113/80, respiratory rate of 20, heart rate of 76, and saturating at 94%. HEENT: Unremarkable. NECK: Supple. HEART: Normal S1 and S2. LUNGS: Have decreased breath sounds. ABDOMEN: Soft, nontender. LABORATORY DATA: Reveals a white count of 13,500, hemoglobin of 13, platelets of 312. Chemistry reveals a BUN of 99, creatinine of 5.7. Urinalysis is noted. Microbiology reveals Gram-negative eric in the urine. Blood cultures are no growth. Review of orders reveals the patient to be on no antibiotics. ASSESSMENT AND PLAN: A 61-year-old male who is seen earlier this morning in room 361, bed 1, with a history of hypertension, coronary artery disease, congestive heart failure, hypothyroidism, learning disability, automatic implantable cardioverter-defibrillator placement, chronic renal failure, diabetes and benign prostatic hypertrophy, who is admitted with systemic inflammatory response syndrome and sepsis and possible healthcare-associated pneumonia, with Gram-negative eric in the urine, with a negative urinalysis. Patient's CAT scan of the chest is reviewed, bilateral ground-glass opacities were noted, and review of medications is noted, the patient is improving, will complete a short course of antibiotics. Jonathan Lea MD
[2017-07-06 07:56] LABS: BETA-HYDROXYBUTYRIC ACID None Detected
--- NOTE | 2017-07-06 14:12 | CP.PCM.DIS ---
Provider - Provider Date of Admission: 07/01/17 21:35 Attending physician: Cecile Rahman MD Primary care physician: Jose Ricks DO Time Spent in preparation of Discharge (in minutes): 45 Diagnosis - Discharge Diagnosis (1) Cellulitis of both lower extremities Status: Acute Comment: Resolving (2) Acute renal failure Status: Acute Comment: Improving (3) Hypoglycemia Status: Resolved (4) CHF (congestive heart failure) Status: Chronic Hospital Course - Lab Results Lab Results: Micro Results 07/01/17 23:50 Blood Blood Culture - Preliminary NO GROWTH AFTER 4 DAYS 07/01/17 23:50 Blood Blood Culture - Preliminary NO GROWTH AFTER 4 DAYS 07/02/17 04:15 Urine Urine Culture - Final Gram Negative Jerardo Most Recent Lab Values WBC 13.5 10^3/ul (4.5-11.0) H D 07/05/17 06:20 RBC 4.12 10^6/uL (3.5-6.1) 07/05/17 06:20 Hgb 12.5 g/dL (14.0-18.0) L 07/05/17 06:20 Hct 37.8 % (42.0-52.0) L 07/05/17 06:20 MCV 91.7 fl (80.0-105.0) 07/05/17 06:20 MCH 30.3 pg (25.0-35.0) 07/05/17 06:20 MCHC 33.1 g/dl (31.0-37.0) 07/05/17 06:20 RDW 14.4 % (11.5-14.5) 07/05/17 06:20 Plt Count 312 10^3/uL (120.0-450.0) 07/05/17 06:20 MPV 10.3 fl (7.0-11.0) 07/05/17 06:20 Gran % 94.8 % (50.0-68.0) H 07/05/17 06:20 Lymph % (Auto) 1.9 % (22.0-35.0) L 07/05/17 06:20 Metcalfe % (Auto) 3.3 % (1.0-6.0) 07/05/17 06:20 Eos % (Auto) 0.0 % (1.5-5.0) L 07/05/17 06:20 Baso % (Auto) 0.0 % (0.0-3.0) 07/05/17 06:20 Gran # 12.78 (1.4-6.5) H 07/05/17 06:20 Lymph # (Auto) 0.3 (1.2-3.4) L 07/05/17 06:20 Metcalfe # (Auto) 0.5 (0.1-0.6) 07/05/17 06:20 Eos # (Auto) 0.0 (0.0-0.7) 07/05/17 06:20 Baso # (Auto) 0.00 K/mm3 (0.0-2.0) 07/05/17 06:20 Neutrophils % (Manual) 97 % (50.0-70.0) H 07/04/17 05:30 Lymphocytes % (Manual) 3 % (22.0-35.0) L 07/04/17 05:30 Monocytes % (Manual) TEST NOT PERFORMED 07/04/17 05:30 Platelet Evaluation Normal (NORMAL) 07/04/17 05:30 PT 11.5 SECONDS (9.4-12.5) 07/01/17 20:49 INR 1.01 (0.93-1.08) 07/01/17 20:49 APTT 34.5 Seconds (25.1-36.5) 07/01/17 20:49 pCO2 25 mm/Hg (35-45) L 07/03/17 08:45 pO2 48.0 mm/Hg (80-100) L 07/03/17 08:45 HCO3 16.6 mmol/L (21-28) L 07/03/17 08:45 ABG pH 7.43 (7.35-7.45) 07/03/17 08:45 ABG Total CO2 17.4 mmol.L (22-28) L 07/03/17 08:45 ABG O2 Saturation 88.1 % (95-98) L 07/03/17 08:45 ABG O2 Content 16.2 ML/dl (15-23) 07/03/17 08:45 ABG Base Excess -6.0 mmol/L (-2.0-3.0) L 07/03/17 08:45 ABG Hemoglobin 13.5 g/dL (11.7-17.4) 07/03/17 08:45 ABG Carboxyhemoglobin 2.0 % (0.5-1.5) H 07/03/17 08:45 POC ABG HHb (Measured) 11.6 % (0-5) H 07/03/17 08:45 ABG Methemoglobin 0.7 % (0.0-3.0) 07/03/17 08:45 ABG O2 Capacity 18.4 mL/dl (16-24) 07/03/17 08:45 VBG pH 7.28 (7.32-7.43) L 07/01/17 22:08 VBG pCO2 43.0 (40-60) 07/01/17 22:08 VBG HCO3 20.2 mmol/l (21-28) L 07/01/17 22:08 VBG Total CO2 21.5 mmol.L (22-28) L 07/01/17 22:08 VBG O2 Sat (Calc) 76.8 % (40-65) H 07/01/17 22:08 VBG Base Excess -6.4 mmol/L (0.0-2.0) L 07/01/17 22:08 VBG Potassium 5.1 mmol/L (3.6-5.2) 07/01/17 22:08 Hgb O2 Saturation 85.7 % (95.0-98.0) L 07/03/17 08:45 Sodium 140.0 mmol/L (132-148) 07/01/17 22:08 Chloride 107.0 mmol/L (98-107) 07/01/17 22:08 Glucose 161 mg/dl (75-110) H 07/01/17 22:08 Lactate 1.0 mmol/L (0.7-2.1) 07/01/17 22:08 FiO2 40.0 % 07/03/17 08:45 Sodium 141 mmol/L (132-148) 07/05/17 06:20 Potassium 5.4 mmol/L (3.6-5.0) H 07/05/17 06:20 Chloride 107 mmol/L (98-107) 07/05/17 06:20 Carbon Dioxide 18 mmol/L (21-33) L 07/05/17 06:20 Anion Gap 21 (10-20) H 07/05/17 06:20 BUN 99 mg/dL (7-21) H 07/05/17 06:20 Creatinine 5.7 mg/dl (0.8-1.5) H 07/05/17 06:20 Est GFR ( Amer) 12 07/05/17 06:20 Est GFR (Non-Af Amer) 10 07/05/17 06:20 POC Glucose (mg/dL) 315 mg/dL (65-110) H 07/05/17 21:12 Random Glucose 203 mg/dL (70-110) H 07/05/17 06:20 Hemoglobin A1c 6.6 % (4.2-6.5) H 07/02/17 06:30 Insulin Level 38.1 uIU/mL (2.0-19.6) H 07/02/17 06:00 C-Peptide 17.74 ng/mL (0.80-3.85) H 07/02/17 06:00 Serum Osmolality 314 mosm/kg (272-300) H 07/01/17 20:49 Calcium 9.1 mg/dL (8.4-10.5) 07/05/17 06:20 Phosphorus 8.8 mg/dL (2.5-4.5) H 07/05/17 06:20 Magnesium 2.2 mg/dL (1.7-2.2) 07/05/17 06:20 Total Bilirubin 0.5 mg/dL (0.2-1.3) 07/05/17 06:20 AST 21 U/L (17-59) 07/05/17 06:20 ALT 20 U/L (7-56) 07/05/17 06:20 Alkaline Phosphatase 49 U/L (38-126) 07/05/17 06:20 Troponin I 0.03 ng/mL 07/02/17 06:00 C-Reactive Protein 20.60 mg/L (0.0-9.9) H 07/03/17 06:00 NT-Pro-B Natriuret Pep 4060 pg/mL (0-450) H 07/01/17 20:49 Total Protein 7.3 g/dL (5.8-8.3) 07/05/17 06:20 Albumin 3.9 g/dL (3.0-4.8) 07/05/17 06:20 Globulin 3.4 gm/dL 07/05/17 06:20 Albumin/Globulin Ratio 1.1 (1.1-1.8) 07/05/17 06:20 Lipase 184 U/L (23-300) 07/01/17 20:49 Beta-Hydroxybutyric Acd None detected mcg/mL 07/02/17 06:00 Procalcitonin 0.19 NG/ML (0.19-0.49) 07/02/17 06:00 TSH 3rd Generation 0.46 mIU/mL (0.46-4.68) 07/02/17 06:00 Venous Blood Potassium 5.1 mmol/L (3.6-5.2) 07/01/17 22:08 Urine Color Yellow (YELLOW) 07/02/17 04:15 Urine Appearance Clear (CLEAR) 07/02/17 04:15 Urine pH 6.0 (4.7-8.0) 07/02/17 04:15 Ur Specific [place] 1.020 (1.005-1.035) 07/02/17 04:15 Urine Protein Negative mg/dL (<30 mg/dL) 07/02/17 04:15 Urine Glucose (UA) Negative mg/dL (NEGATIVE) 07/02/17 04:15 Urine Ketones Negative mg/dL (NEGATIVE) 07/02/17 04:15 Urine Blood Negative (NEGATIVE) 07/02/17 04:15 Urine Nitrate Negative (NEGATIVE) 07/02/17 04:15 Urine Bilirubin Negative (NEGATIVE) 07/02/17 04:15 Urine Urobilinogen 0.2 E.U./dL (<1 E.U./dL) 07/02/17 04:15 Ur Leukocyte Esterase Negative Bishop/uL (NEGATIVE) 07/02/17 04:15 Ur Random Creatinine 84 mg/dL 07/02/17 15:00 Ur Random Sodium 66 meq/L 07/02/17 15:00 JUANCHO Nuclear Membr Pat Negative (Negative) 07/03/17 06:00 Blood Type A POSITIVE 07/01/17 20:49 Antibody Screen Negative 07/01/17 20:49 BBK History Checked Patient has bt 07/01/17 20:49 - Hospital Course Hospital Course: 61 year old male with PMH DM2 (on home insulin), CHF with EF 34% (in 07/2016), mild developmental disability, CKD stage 4, hypothyroidism, b/l lower extremity skin grafts, BPH, nursing home resident, presents for generalized weakness, diaphoresis, hypoglycemia. CXR on admission was negative and blood cultures were negative. CT of the head on admission showed chronic white matter changes. HgBA1C was 6.6, C-Peptide was elevated at 17.4. Patient's antidiabetic were held and his hypoglycemia was stabilized. Hospital course was complicated by ANNA on CKD and leukocytosis. Renal US showed Increased Echogenecity on kidney's b/l and B/L simple cyst. Nephro was consulted on the case and recommended fluids. Fluids were eventually stopped due to SOB likely 2/2 to CHF exacerbation. Cr began downtrending. Cardiology was consulted on the case for patients CHF history. Urine Culture grew Gram negative Rods. Infectious disease was consulted on the case and patient was put on meropenem. Pulmonary was consulted on the case due to the patient's low 02 saturation requiring NR- breather then Venti mask. CT of the chest showed Nonspecific diffuse bilateral ground-glass opacity, greater at the lung bases. There are multi lobar patchy areas of confluent opacity as well. Possible multi lobar pneumonia. However common nonspecific and may reflect inflammatory etiology. Small bilateral pleural effusion. Cardiomegaly. AICD. Mild mediastinal lymphadenopathy." Hospital course also complicated by b/l lower extremity cellulitis. Wound care was consulted on the case, ID was already on the case. Patient was started on Vancomycin. Leukocytosis began to resolve, proCal returned at 0.19. Patient's cousin "Melissa Flores" acted as his healthcare proxy. Patient's cousin had many demands during the patient's hospital course. She began to manage the patient's oxygen settings herself until she was told the leave the management to the patient's care team. Cousin insisted on transferring patient to [facility] where his computer game programmer (Dr. Roberto Elliott) holds privileges. Patient was accepted and then transferred on the evening of 2017. The importance establishing a new primary care physician was reinforced to the patient and his cousin. Patient was switching back and forth between primary care physicians for reasons that are multifactorial but including dissatisfactions with providers. His most recent primary physician is Dr. Ricks who the cousin stated they will follow up with after he is discharge. Patient and patient's cousin agreeable to plan which is the transfer to [facility]. Patient discussed with Attending Jan Rubio, PGY-1 Discharge Exam - Head Exam Head Exam: NORMAL INSPECTION - Additional Findings Additional findings: - Constitutional Appears: Non-toxic, No Acute Distress - Head Exam Head Exam: ATRAUMATIC, NORMAL INSPECTION, NORMOCEPHALIC - Eye Exam Eye Exam: Normal appearance - ENT Exam ENT Exam: Mucous Membranes Moist - Neck Exam Neck Exam: Normal Inspection - Respiratory Exam Respiratory Exam: Clear to Ausculation Bilateral, NORMAL BREATHING PATTERN. absent: Rales, Rhonchi, Wheezes - Cardiovascular Exam Cardiovascular Exam: RRR, +S1, +S2 - GI/Abdominal Exam GI & Abdominal Exam: Soft. absent: Tenderness - Extremities Exam Extremities Exam: Bilateral lower extremity tenderness and erythema. Edema has decreased. - Neurological Exam Neurological Exam: Alert, Awake, Oriented x3 - Psychiatric Exam Psychiatric exam: Normal Affect, Normal Mood - Skin Skin Exam: Dry, Intact, Normal Color, Warm Discharge Plan - Follow Up Plan Condition: STABLE Disposition: OTHER INSTITUTION Additional Instructions: Transferring to [facility] for continued care Referrals: Jose Ricks DO [Primary Care Provider] - Roberto Elliott MD [Non-Staff] -
== END 2017-07-05 22:52 | disposition short-term general hospital (02) | DRG 568 ==
LOC: ED 20:22 → ERH 21:35 → 3RNO 22:43
PROVIDERS: ADMIT Hospitalist; ATTEND Internal Medicine
PROC: 3E0F7GC Introduction of Other Therapeutic Substance into Respiratory Tract, Via Natural or Artificial Opening (ICD-10-PCS; 2017-07-02)
PROC: 5A09357 Assistance with Respiratory Ventilation, Less than 24 Consecutive Hours, Continuous Positive Airway Pressure (ICD-10-PCS; principal; 2017-07-03)
DX: N17.9 Acute kidney failure, unspecified (principal); E11.649 Type 2 diabetes mellitus with hypoglycemia without coma; I50.20 Unspecified systolic (congestive) heart failure; E86.0 Dehydration; I13.0 Hypertensive heart and chronic kidney disease with heart failure and stage 1 through stage 4 chronic kidney disease, or unspecified chronic kidney disease; E87.2 Acidosis; I42.0 Dilated cardiomyopathy; E87.5 Hyperkalemia; N39.0 Urinary tract infection, site not specified; L03.115 Cellulitis of right lower limb; L03.116 Cellulitis of left lower limb; R09.02 Hypoxemia; I08.1 Rheumatic disorders of both mitral and tricuspid valves; J44.9 Chronic obstructive pulmonary disease, unspecified; E11.22 Type 2 diabetes mellitus with diabetic chronic kidney disease; N18.4 Chronic kidney disease, stage 4 (severe); I25.10 Atherosclerotic heart disease of native coronary artery without angina pectoris; F70 Mild intellectual disabilities; E03.9 Hypothyroidism, unspecified; N40.0 Benign prostatic hyperplasia without lower urinary tract symptoms; E66.9 Obesity, unspecified; N25.81 Secondary hyperparathyroidism of renal origin; F81.9 Developmental disorder of scholastic skills, unspecified; Z79.4 Long term (current) use of insulin; Z95.5 Presence of coronary angioplasty implant and graft; Z95.810 Presence of automatic (implantable) cardiac defibrillator

== ENCOUNTER 2017-07-20 09:21 | Observation (INO) | payer MEDICAID ==
[2017-07-20] MEDS ORDERED: Dextrose 50% SYRINGE Inj (50 ml) ONE (09:39)
[2017-07-20 09:41] VITALS: BMI 31.4
--- NOTE | 2017-07-20 09:59 | ED PDOC ---
Arrival/HPI - General Time Seen by Provider: 07/20/17 09:37 Historian: Patient, Caregiver, EMS - History of Present Illness Narrative History of Present Illness (Text): 07/20/17 9:50 Patient is a 61 year old male whose medical history includes diabetes,CHF, renal failure, and developmental delay, who was brought into the Emergency department by EMS for low blood glucose. Patient doesn't know how he presented to the hospital. He states that he recieved his inuslin injection yesterday at approximately 19:30 last night and didn't subsequently eat. He went to sleep and the next thing he remembers is waking up in the Emergency department. Patient denies fevers, dyspnea, or any other symptoms at this time. Time/Duration: 1/2 hour Symptom Course: Improving Context: Home Past Medical History - Provider Review Nursing Documentation Reviewed: Yes - Past History Past History: No Previous - Infectious Disease Hx of Infectious Diseases: None - Tetanus Immunization Tetanus Immunization: Unknown - Cardiac Hx Cardiac Disorders: Yes (cardiac cath, coronary stent, pacemake w/ internal defibrillator) - Pulmonary Hx Respiratory Disorders: Yes Hx Chronic Obstructive Pulmonary Disease (COPD): Yes - Neurological Hx Neurological Disorder: Yes (MR) - HEENT Hx HEENT Disorder: No - Renal Hx Renal Disorder: Yes Hx Renal Failure: Yes - Endocrine/Metabolic Hx Endocrine Disorders: Yes Hx Diabetes Mellitus Type 1: Yes Hx Diabetes Mellitus Type 2: Yes Hx Hypothyroidism: Yes - Hematological/Oncological Hx Blood Disorders: No - Integumentary Hx Dermatological Disorder: Yes - Musculoskeletal/Rheumatological Hx Musculoskeletal Disorders: Yes Hx Falls: Yes - Gastrointestinal Hx Gastrointestinal Disorders: No - Genitourinary/Gynecological Hx Genitourinary Disorders: No - Psychiatric Hx Psychophysiologic Disorder: Yes Hx Substance Use: No Other/Comment: Developmental delay. - Surgical History Hx Cardiac Catheterization: Yes Hx Coronary Stent: Yes Other/Comment: cardiac cath, pacemaker with internal defribilator - Anesthesia Hx Anesthesia: Yes Hx Anesthesia Reactions: No Hx Malignant Hyperthermia: No - Suicidal Assessment Feels Threatened In Home Enviroment: No Family/Social History - Physician Review Nursing Documentation Reviewed: Yes Family/Social History: No Known Family HX Smoking Status: Never Smoked Hx Alcohol Use: No Hx Substance Use: No Hx Substance Use Treatment: No Allergies/Home Meds Allergies/Adverse Reactions: Allergies No Known Allergies Allergy (Verified 07/20/17 13:29) Home Medications: Home Meds Medication Instructions Recorded Confirmed Carvedilol [Coreg] 25 mg PO BID 01/03/16 01/22/17 Levothyroxine [Synthroid] 125 mcg PO DAILY 01/03/16 01/22/17 Ergocalciferol (Vitamin D2) 1.25 mg PO .WEEKLY 12/31/16 01/22/17 [Vitamin D2] Furosemide [Lasix] 80 mg PO DAILY 12/31/16 01/22/17 Ketoconazole 2% Cr [Nizoral] 1 appful TOP BID 12/31/16 01/22/17 Omeprazole 20 mg PO DAILY 12/31/16 01/22/17 Insulin Glargine,Hum.rec.anlog 25 units SC HS 01/09/17 01/22/17 [Touromano Solvj] Enalapril Maleate [Vasotec] 10 mg PO DAILY 01/22/17 01/22/17 Sodium Bicarbonate Tab 650 mg PO DAILY 01/22/17 01/22/17 glyBURIDE [Micronase] 5 mg PO DAILY 01/22/17 01/22/17 Review of Systems - Physician Review All systems were reviewed & negative as marked: Yes - Review of Systems Constitutional: absent: Fevers Respiratory: absent: SOB Physical Exam - Physical Exam Narrative Physical Exam (Text): 07/20/17 09:56 Constitutional: No acute distress. Head: Normocephalic. Atraumatic. Eyes: PERRL. ENT: Moist mucous membranes. Neck: Supple. Cardiovascular: Regular rate. Chest: No tenderness. Left sided pacemaker. Respiratory: Clear to auscultation bilaterally. GI: Soft. Nontender. Nondistended. ecchymosis. umbilical hernia, reducible and soft. Back: No CVA tenderness. Musculoskeletal: No tenderness or swelling of extremities. Skin: No rash. Neurologic: Alert, no focal deficit. AxOx3 Vital Signs Temp Pulse Resp BP Pulse Ox 07/20/17 12:24 82 17 120/75 97 07/20/17 10:42 95 H 19 120/72 100 07/20/17 09:40 97.6 F 70 19 109/63 96 Temperature: Afebrile Blood Pressure: Normal Pulse: Regular Respiratory Rate: Normal Mental Status: Positive for: Alert and Oriented X 3 Finger Stick Blood Glucose: 43 Medical Decision Making ED Course and Treatment: 07/20/17 09:58 Impression: Patient is a 61 year old male brought in by EMS with low blood glucose. Differential Diagnosis included but are not limited to: hypoglycemia Plan: -- labs -- chest X-ray -- Reassess and disposition Prior Visits: Notes and results from previous visits were reviewed. Patient was last seen in the emergency department on 07/01/17 for weakness and was admitted to the hospitalist at that time. Progress Notes: 07/20/17 10:05 EKG shows vernacularly paced rhythm at 70 BPM. Interpreted by me. 07/20/17 10:34 Spoke with program instructor of patient's correction. She states that prior to Emergency department presentation patient had outbursts of laughter and his blood glucose was 43. Dictator : Everardo Mendiola MD Disability Rater : Everardo Mendiola MD Report Date : 07/20/2017 10:25:35 My Comment : HISTORY: hypoglycemia COMPARISON: 07/03/2017 FINDINGS: LUNGS: No active pulmonary disease. PLEURA: No significant pleural effusion identified, no pneumothorax apparent. CARDIOVASCULAR: Moderate cardiomegaly OSSEOUS STRUCTURES: No significant abnormalities. VISUALIZED UPPER ABDOMEN: Normal. OTHER FINDINGS: Pacemaker IMPRESSION: No active disease. 07/20/17 11:17 Case discussed with , who is aware and agrees with the plan to admit patient to hospitalist care. - Lab Interpretations Lab Results: 07/20/17 09:40 07/20/17 09:40 Lab Results 07/20/17 10:12: POC Glucose (mg/dL) 120 H 07/20/17 09:40: Sodium 140, Potassium 4.6, Chloride 98, Carbon Dioxide 25, Anion Gap 22 H, BUN 122 H*, Creatinine 6.5 H, Est GFR ( Amer) 11, Est GFR (Non-Af Amer) 9, Random Glucose 42 L* D, Calcium 9.8, Total Bilirubin 0.6, AST 26, ALT 26, Alkaline Phosphatase 57, Total Creatine Kinase 32 L, Troponin I 0.09 D, NT-Pro-B Natriuret Pep 2740 H, Total Protein 8.4 H, Albumin 4.4, Globulin 4.0, Albumin/Globulin Ratio 1.1, Lipase 251 07/20/17 09:40: PT 11.4, INR 0.99, APTT 29.5 07/20/17 09:40: WBC 17.8 H D, RBC 4.88, Hgb 15.1 D, Hct 44.0, MCV 90.2, MCH 30.9, MCHC 34.3, RDW 14.3, Plt Count 244, MPV 12.4 H, Gran % 79.6 H, Lymph % ( Auto) 11.6 L, [place] % (Auto) 6.1 H, Eos % (Auto) 2.6, Baso % (Auto) 0.1, Gran # 14.17 H, Lymph # (Auto) 2.1, [place] # (Auto) 1.1 H, Eos # (Auto) 0.5, Baso # (Auto ) 0.01 07/20/17 09:34: POC Glucose (mg/dL) 43 L I have reviewed the lab results: Yes - RAD Interpretation Radiology Orders: 07/20/17 09:54 CHEST PORTABLE [RAD] Stat Document Management Technician: Radiologist - EKG Interpretation Interpreted by ED Physician: Yes Type: 12 lead EKG - Medication Orders Current Medication Orders: Aspirin (Aspirin Chewable) 81 mg PO DAILY ALFONSO Clopidogrel Bisulfate (Plavix) 75 mg PO DAILY ALFONSO Insulin Human Regular (Humulin R Med) 0 units SC ACHS ALFONSO PRN Reason: Protocol Levothyroxine Sodium (Synthroid) 125 mcg PO DAILY ALFONSO Pantoprazole Sodium (Protonix Ec Tab) 40 mg PO DAILY ALFONSO Sodium Bicarbonate (Sodium Bicarbonate Tab) 650 mg PO DAILY ALFONSO Tamsulosin HCl (Flomax) 0.4 mg PO DAILY ALFONSO Discontinued Medications Dextrose (Dextrose 50% Inj) 50 ml IVP STAT STA Stop: 07/20/17 10:26 Last Admin: 07/20/17 10:26 Dose: - Scribe Statement The provider has reviewed the documentation as recorded by the Arden Liu Provider Scribe Attestation: All medical record entries made by the Scribe were at my direction and personally dictated by me. I have reviewed the chart and agree that the record accurately reflects my personal performance of the history, physical exam, medical decision making, and the department course for this patient. I have also personally directed, reviewed, and agree with the discharge instructions and disposition. Disposition/Present on Arrival - Present on Arrival Any Indicators Present on Arrival: No History of DVT/PE: No History of Uncontrolled Diabetes: No Urinary Catheter: No History Surgical Site Infection Following: None - Disposition Have Diagnosis and Disposition been Completed?: Yes Diagnosis: Hypoglycemia Disposition: HOSPITALIZED Disposition Time: 11:24 Patient Plan: Observation Condition: FAIR
[2017-07-20 10:15] LABS: BASO # 0.01 K/mm3 (0.0-2.0); BASO % 0.1 % (0.0-3.0); EOS # 0.5 (0.0-0.7); EOS % 2.6 % (1.5-5.0); GRAN # 14.17 (1.4-6.5); GRAN % 79.6 % (50.0-68.0); HEMOGLOBIN 15.1 g/dL (14.0-18.0); LYMPH # 2.1 (1.2-3.4); LYMPH % 11.6 % (22.0-35.0); MEAN CELL VOLUME 90.2 fl (80.0-105.0); MEAN CORPUSCULAR HEMOGLOBIN 30.9 pg (25.0-35.0); MEAN CORPUSCULAR HGB CONC 34.3 g/dl (31.0-37.0); MEAN PLATELET VOLUME 12.4 fl (7.0-11.0); MONO # 1.1 (0.1-0.6); MONO % 6.1 % (1.0-6.0); RBC 4.88 10^6/uL (3.5-6.1); RED CELL DISTRIBUTION WIDTH 14.3 % (11.5-14.5); WHITE BLOOD COUNT 17.8 10^3/ul (4.5-11.0)
[2017-07-20 10:23] LABS: INR 0.99 (0.93-1.08); PARTIAL THROMBOPLASTIN TIME 29.5 Seconds (25.1-36.5); PROTHROMBIN TIME 11.4 SECONDS (9.4-12.5)
[2017-07-20] MEDS ORDERED: Dextrose 50% SYRINGE Inj (50 ml) IVP STA (10:25)
--- NOTE | 2017-07-20 10:27 | RAD ---
HISTORY: hypoglycemia COMPARISON: 07/03/2017 FINDINGS: LUNGS: No active pulmonary disease. PLEURA: No significant pleural effusion identified, no pneumothorax apparent. CARDIOVASCULAR: Moderate cardiomegaly OSSEOUS STRUCTURES: No significant abnormalities. VISUALIZED UPPER ABDOMEN: Normal. OTHER FINDINGS: Pacemaker IMPRESSION: No active disease.
[2017-07-20 10:59] LABS: ALB/GLOB RATIO 1.1 (1.1-1.8); ALBUMIN 4.4 g/dL (3.0-4.8); CALCIUM 9.8 mg/dL (8.4-10.5)
[2017-07-20 11:00] LABS: TROPONIN I 0.09 ng/mL
--- NOTE | 2017-07-20 11:35 | CP.PCM.HP ---
<Mingo Nam - Last Filed: 07/20/17 15:23> History of Present Illness - History of Present Illness History of Present Illness: Medicine H&P for Dr. Rahman cc: Hypoglycemia 61 M with past medical history that includes diabetes, CHF EF 34%, renal failure , CAD with stents, s/p ICD and developmental delay who was brought into by EMS to [facility] [place] for a complaint of hypoglycemia. As per home health specialist, patient became confused with blurry vision after receiving insulin last night around 19:30. Patient doesn't know exactly what happened and did not become reoriented until he arrived to the hospital. Patient denies any pain. His home health specialist was present at bedside. Denies fevers/chills, chest pain, headache, blurry vision, dyspnea , chest pain, palpitations, abdominal pain, nausea/vomiting, diarrhea, constipation, urinary symptoms. PMD: Dr. Ricks PMH: CHF EF 34%, renal failure, CAD with stents, developmental delay, s/p ICD placement, CKD stage 4, hypertension, hypothyroidism, DM type 2, BPH Meds: As per EMR Allergy: NKDA PSH: ICD placement, PCI FH: noncontributory Social: Denies tobacco/alcohol/illicit drug use, resident of [facility] Present on Admission - Present on Admission Any Indicators Present on Admission: Yes History of DVT/PE: No History of Uncontrolled Diabetes: Yes Urinary Catheter: No Decubitus Ulcer Present: No History Surgical Site Infection Following: None Review of Systems - Review of Systems All systems: reviewed and no additional remarkable complaints except (as per HPI ) Past Patient History - Infectious Disease Hx of Infectious Diseases: None - Tetanus Immunizations Tetanus Immunization: Unknown - Past Medical History & Family History Past Medical History?: Yes - Past Social History Smoking Status: Never Smoked - CARDIAC Hx Cardiac Disorders: Yes (cardiac cath, coronary stent, pacemake w/ internal defibrillator) - PULMONARY Hx Respiratory Disorders: Yes Hx Chronic Obstructive Pulmonary Disease (COPD): Yes - NEUROLOGICAL Hx Neurological Disorder: Yes (MR) - HEENT Hx HEENT Problems: No - RENAL Hx Chronic Kidney Disease: Yes Hx Renal Failure: Yes - ENDOCRINE/METABOLIC Hx Endocrine Disorders: Yes Hx Diabetes Mellitus Type 1: Yes Hx Diabetes Mellitus Type 2: Yes Hx Hypothyroidism: Yes - HEMATOLOGICAL/ONCOLOGICAL Hx Blood Disorders: No - INTEGUMENTARY Hx Dermatological Problems: Yes - MUSCULOSKELETAL/RHEUMATOLOGICAL Hx Musculoskeletal Disorders: Yes Hx Falls: Yes - GASTROINTESTINAL Hx Gastrointestinal Disorders: No - GENITOURINARY/GYNECOLOGICAL Hx Genitourinary Disorders: No - PSYCHIATRIC Hx Psychophysiologic Disorder: Yes Hx Substance Use: No Other/Comment: Developmental delay. - SURGICAL HISTORY Hx Cardiac Catheterization: Yes Hx Coronary Stent: Yes Other/Comment: cardiac cath, pacemaker with internal defribilator - ANESTHESIA Hx Anesthesia: Yes Hx Anesthesia Reactions: No Hx Malignant Hyperthermia: No Meds Allergies/Adverse Reactions: Allergies Allergy/AdvReac Type Severity Reaction Status Date / Time No Known Allergies Allergy Verified 07/20/17 13:29 Physical Exam - Constitutional Appears: No Acute Distress - Head Exam Head Exam: ATRAUMATIC, NORMOCEPHALIC - Eye Exam Eye Exam: EOMI, Normal appearance Pupil Exam: PERRL - ENT Exam ENT Exam: Mucous Membranes Moist - Respiratory Exam Respiratory Exam: Clear to Auscultation Bilateral, NORMAL BREATHING PATTERN - Cardiovascular Exam Cardiovascular Exam: REGULAR RHYTHM, +S1, +S2 - GI/Abdominal Exam GI & Abdominal Exam: Normal Bowel Sounds, Soft. absent: Tenderness - Extremities Exam Extremities exam: Positive for: normal capillary refill, pedal pulses present. Negative for: calf tenderness - Back Exam Back exam: absent: CVA tenderness (L), CVA tenderness (R) - Neurological Exam Neurological exam: Alert - Psychiatric Exam Psychiatric exam: Normal Affect, Normal Mood - Skin Skin Exam: Dry, Intact, Warm Additional comments: R supraclavicular scar from ICD Results - Vital Signs Recent Vital Signs: Last Vital Signs Temp 97.6 F 07/20/17 09:40 Pulse 95 H 07/20/17 10:42 Resp 19 07/20/17 10:42 BP 120/72 07/20/17 10:42 Pulse Ox 100 07/20/17 10:42 - Labs Result Diagrams: 07/20/17 09:40 07/20/17 09:40 Labs: Laboratory Results - last 24 hr 07/20/17 07/20/17 07/20/17 09:34 09:40 09:40 WBC 17.8 H D RBC 4.88 Hgb 15.1 D Hct 44.0 MCV 90.2 MCH 30.9 MCHC 34.3 RDW 14.3 Plt Count 244 MPV 12.4 H Gran % 79.6 H Lymph % (Auto) 11.6 L [place] % (Auto) 6.1 H Eos % (Auto) 2.6 Baso % (Auto) 0.1 Gran # 14.17 H Lymph # (Auto) 2.1 [place] # (Auto) 1.1 H Eos # (Auto) 0.5 Baso # (Auto) 0.01 PT 11.4 INR 0.99 APTT 29.5 Sodium Potassium Chloride Carbon Dioxide Anion Gap BUN Creatinine Est GFR ( Amer) Est GFR (Non-Af Amer) POC Glucose (mg/dL) 43 L Random Glucose Calcium Total Bilirubin AST ALT Alkaline Phosphatase Total Creatine Kinase Troponin I NT-Pro-B Natriuret Pep Total Protein Albumin Globulin Albumin/Globulin Ratio Lipase 07/20/17 07/20/17 09:40 10:12 WBC RBC Hgb Hct MCV MCH MCHC RDW Plt Count MPV Gran % Lymph % (Auto) [place] % (Auto) Eos % (Auto) Baso % (Auto) Gran # Lymph # (Auto) [place] # (Auto) Eos # (Auto) Baso # (Auto) PT INR APTT Sodium 140 Potassium 4.6 Chloride 98 Carbon Dioxide 25 Anion Gap 22 H BUN 122 H* Creatinine 6.5 H Est GFR ( Amer) 11 Est GFR (Non-Af Amer) 9 POC Glucose (mg/dL) 120 H Random Glucose 42 L* D Calcium 9.8 Total Bilirubin 0.6 AST 26 ALT 26 Alkaline Phosphatase 57 Total Creatine Kinase 32 L Troponin I 0.09 D NT-Pro-B Natriuret Pep 2740 H Total Protein 8.4 H Albumin 4.4 Globulin 4.0 Albumin/Globulin Ratio 1.1 Lipase 251 Assessment & Plan - Assessment and Plan (Free Text) Assessment: 61 M with past medical history that includes diabetes, CHF EF 34%, renal failure , CAD with stents, s/p ICD and developmental delay who was brought into by EMS to [facility] [place] for a complaint of hypoglycemia Plan: 1. Hypoglycemia hypoglycemia protocol - D50 PRN Renal HHD mod carb diet Hold oral hypoglycemics Hold home insulin Accuchecks ACHS 2. CHF EF 34% Hold home med lasix 3. CAD with stents Continue ASA 4. CKD stage 4 Continue home med Sodium bicarb Renal HHD mod carb diet 5. hypertension Hold home medications 6. hypothyroidism Contiue Home med Synthroid 7. DM type 2 Renal HHD mod carb diet Hold oral hypoglycemics Hold home insulin Accuchecks ACHS ISS 8. BPH Contiue home med Flomax 9. Prophylactic Measures Protonix for GI ppx SCD for DVT ppx <Cecile Rahman - Last Filed: 07/20/17 16:51> Results - Vital Signs Recent Vital Signs: Last Vital Signs Temp 97.6 F 07/20/17 09:40 Pulse 82 07/20/17 12:24 Resp 17 07/20/17 12:24 BP 120/75 07/20/17 12:24 Pulse Ox 97 07/20/17 12:24 - Labs Result Diagrams: 07/20/17 09:40 07/20/17 09:40 Labs: Laboratory Results - last 24 hr 07/20/17 07/20/17 07/20/17 11:36 12:43 15:39 POC Glucose (mg/dL) 90 132 H Urine Color Yellow Urine Appearance Cloudy Urine pH 7.0 Ur Specific [place] 1.010 Urine Protein Trace H Urine Glucose (UA) Negative Urine Ketones Negative Urine Blood Negative Urine Nitrate Negative Urine Bilirubin Negative Urine Urobilinogen 0.2 Ur Leukocyte Esterase Negative Urine RBC 0 - 2 Urine WBC 0 - 2 Ur Epithelial Cells None Urine Bacteria Few Attending/Attestation - Attestation I have personally seen and examined this patient.: Yes I have fully participated in the care of the patient.: Yes I have reviewed all pertinent clinical information: Yes Notes (Text): 07/20/17 16:44 Attending note; Patient seen and examined with resident in ER. Patient is alert and awake. Not in any acute distress. Denies any complaints. Patient's 24-hour homemaker is by the bedside. Patient is a 61 year old male with past medical history of diabetes, CHF (34%), mild MR, CKD, hypothyroidism, BPH, [facility] resident who was admitted for confusion and hypoglycemia. Fingerstick of 42. Patient was given D50 in the ER. Currently patient is completely alert and awake. Patient was on glyburide. Patient also got long-acting insulin last night . Monitor fingerstick closely. D5W ordered. recent A1C was 6.7. Need insulin adjustment because of worsening renal failure. Advised to stop glyburide. Advised to stop long-acting insulin. Patient can be monitored with regular insulin sliding scale and follow up with PMD for insulin if needed. Discussed with patient's healthcare proxy Melissa in detail. Coronary artery disease/pacemaker; continue aspirin, Plavix. Chronic kidney disease; creatinine stable at 6. Patient follows up with [facility] for CKD. Hypertension; blood pressure on the low side. Patient is on Lasix, lisinopril and Norvasc. Hold medications for now. Leukocytosis; patient is afebrile and nontoxic. Lower extremity cellulitis is improving. Possible discharge home tomorrow. Upon discharge the patient will follow-up with PMD Dr. Ricks. discussed with patient's healthcare proxy/cousin Melissa in detail. 07/20/17 16:51
[2017-07-20 12:13] LABS: URINE BILIRUBIN NEGATIVE (NEGATIVE); URINE BLOOD NEGATIVE (NEGATIVE); URINE GLUCOSE (UA) NEGATIVE (NEGATIVE); URINE LEUKOCYTE ESTERASE NEGATIVE Leu/uL (NEGATIVE); URINE PROTEIN TRACE mg/dL (<30 mg/dL); URINE UROBILINOGEN 0.2 E.U./dL (<1 E.U./dL)
[2017-07-20 12:17] LABS: URINE APPEARANCE CLOUDY (CLEAR); URINE COLOR YELLOW (YELLOW)
[2017-07-20 12:34] LABS: URINE BACTERIA FEW (NEG); URINE RBC 0 - 2 /hpf (0-2); URINE WBC 0 - 2 /hpf (0-6)
[2017-07-20] MEDS: Insulin Reg-MEDIUM-Coverage SC SCH ×2 (16:07→22:00)
[2017-07-20] MEDS ORDERED: Pneumococcal 23-Valent Vaccine IM ONE (17:59)
--- NOTE | 2017-07-20 19:15 | CARD ---
APPROVED REPORT EKG Measurement Heart [id number] <Conclusion> V. Paced, A. Sensed rhythm premature ventricular complexes or fusion complexes Left axis deviation Abnormal ECG
[2017-07-21 06:26] LABS: EOS # 0.6 (0.0-0.7); EOS % 3.9 % (1.5-5.0); GRAN % 76.9 % (50.0-68.0); HEMOGLOBIN 13.7 g/dL (14.0-18.0); LYMPH % 13.7 % (22.0-35.0); MEAN CELL VOLUME 90.6 fl (80.0-105.0); MEAN CORPUSCULAR HEMOGLOBIN 29.8 pg (25.0-35.0); MEAN CORPUSCULAR HGB CONC 32.9 g/dl (31.0-37.0); MEAN PLATELET VOLUME 11.9 fl (7.0-11.0); MONO # 0.8 (0.1-0.6); MONO % 5.5 % (1.0-6.0); RBC 4.59 10^6/uL (3.5-6.1); RED CELL DISTRIBUTION WIDTH 14.5 % (11.5-14.5); WHITE BLOOD COUNT 14.3 10^3/ul (4.5-11.0)
[2017-07-21] MEDS: Insulin Reg-MEDIUM-Coverage SC SCH ×2 (08:04→12:08)
[2017-07-21 08:43] VITALS: BP 106/67; PULSE 90; RESP 18; TEMP 98.1; O2SAT 93
[2017-07-21] MEDS ORDERED: Pantoprazole 40 mg EC Tab PO SCH (10:00)
[2017-07-21] MEDS ORDERED: Levothyroxine 125 MCG TAB PO SCH (10:00)
[2017-07-21] MEDS ORDERED: Clotrimazole 1% Cream(30 gm) TOP SCH (10:45)
--- NOTE | 2017-07-21 10:56 | CP.PCM.CON ---
History of Present Illness - History of Present Illness History of Present Illness: 61 y/o male with PMHx of DM, CHF, CAD, HTN, hypothyroidism and BPH seen at bedside after consultation for bilateral lower leg scaling. Pt states he sees a button attaching machine operator Dr. Jimenez who follows him for routine care including management of his skin scaling and cutting his nails. Pt denies having any pain to the legs both at rest and on exertion. States he has been diabetic for 4 years and his sugars run around 130-150 on a normal morning. Denies numbness tingling or burning in the lower extremities. Denies any history of open ulcers. Admits to occasional itchiness in the legs around where the scaling is. Denies F/C/N/V/CP/ SOB PMD: Dr. Ricks; button attaching machine operator Dr. Jimenez PSH: ICD placement, PCI Allergy: NKDA FamHx: noncontributory Social Hx: Denies tobacco/alcohol/illicit drug use; resident of care home Review of Systems - Review of Systems All systems: reviewed and no additional remarkable complaints except (per HPI) Past Patient History - Infectious Disease Hx of Infectious Diseases: None - Tetanus Immunizations Tetanus Immunization: Unknown - Past Medical History & Family History Past Medical History?: Yes - Past Social History Smoking Status: Never Smoked - CARDIAC Hx Cardiac Disorders: Yes (cardiac cath, coronary stent, pacemake w/ internal defibrillator) Other/Comment: CAD - PULMONARY Hx Respiratory Disorders: Yes Hx Chronic Obstructive Pulmonary Disease (COPD): Yes - NEUROLOGICAL Hx Neurological Disorder: Yes (MR) - HEENT Hx HEENT Problems: No - RENAL Hx Chronic Kidney Disease: Yes Hx Renal Failure: Yes - ENDOCRINE/METABOLIC Hx Endocrine Disorders: Yes Hx Diabetes Mellitus Type 1: Yes Hx Diabetes Mellitus Type 2: Yes Hx Hypothyroidism: Yes - HEMATOLOGICAL/ONCOLOGICAL Hx Blood Disorders: No - INTEGUMENTARY Hx Dermatological Problems: Yes - MUSCULOSKELETAL/RHEUMATOLOGICAL Hx Musculoskeletal Disorders: Yes Hx Falls: Yes - GASTROINTESTINAL Hx Gastrointestinal Disorders: No - GENITOURINARY/GYNECOLOGICAL Hx Genitourinary Disorders: No - PSYCHIATRIC Hx Psychophysiologic Disorder: Yes Hx Substance Use: No Other/Comment: Developmental delay. - SURGICAL HISTORY Hx Cardiac Catheterization: Yes Hx Coronary Stent: Yes Other/Comment: cardiac cath, pacemaker with internal defribilator - ANESTHESIA Hx Anesthesia: Yes Hx Anesthesia Reactions: No Hx Malignant Hyperthermia: No Meds Allergies/Adverse Reactions: Allergies Allergy/AdvReac Type Severity Reaction Status Date / Time No Known Allergies Allergy Verified 07/20/17 13:29 - Medications Medications: Current Medications Aspirin (Aspirin Chewable) 81 mg PO DAILY [facility] Clopidogrel Bisulfate (Plavix) 75 mg PO DAILY [facility] Clotrimazole (Lotrimin 1%) 0 gm TOP BID [facility] Insulin Human Regular (Humulin R Med) 0 units SC ACHS [facility] PRN Reason: Protocol Last Admin: 07/21/17 08:04 Dose: Not Given Ketoconazole (Nizoral) 0 gm TOP BID [facility] Levothyroxine Sodium (Synthroid) 125 mcg PO DAILY [facility] Pantoprazole Sodium (Protonix Ec Tab) 40 mg PO DAILY [facility] Sodium Bicarbonate (Sodium Bicarbonate Tab) 650 mg PO DAILY [facility] Tamsulosin HCl (Flomax) 0.4 mg PO DAILY [facility] Vitamin A (Vitamin A & D Oint Ud Foilpak) 0 ea TOP BID [facility] Physical Exam - Constitutional Appears: Well, Non-toxic, No Acute Distress - Extremities Exam Additional comments: Lower extremity focused exam: Vasc: DP/PT pulses palpable 2/4 B/L. Temperature gradient warm to cool. CFT < 3 sec to all digits Derm: B/L lower leg and circumferential ankle scaling with hyperpigmentation and hemosiderin deposits. Peripheral skin exhibits erythema B/L. No open lesions , no ecchymosis. No breaks in skin or soft tissue noted Neuro: Protective sensation grossly intact Ortho: No tenderness to palpation of bilateral lower extremities. Hammertoe contractures to digits 2 and 5 B/L - Neurological Exam Neurological exam: Alert, Oriented x3 - Psychiatric Exam Psychiatric exam: Normal Affect, Normal Mood Results - Vital Signs Recent Vital Signs: Last Vital Signs Temp 98.1 F 07/21/17 08:43 Pulse 90 07/21/17 08:43 Resp 18 07/21/17 08:43 BP 106/67 07/21/17 08:43 Pulse Ox 93 L 07/21/17 08:43 - Labs Result Diagrams: 07/21/17 05:30 07/21/17 05:30 Labs: Laboratory Results - last 24 hr 07/20/17 07/20/17 07/20/17 11:36 12:43 15:39 WBC RBC Hgb Hct MCV MCH MCHC RDW Plt Count MPV Gran % Lymph % (Auto) [place] % (Auto) Eos % (Auto) Baso % (Auto) Gran # Lymph # (Auto) [place] # (Auto) Eos # (Auto) Baso # (Auto) Sodium Potassium Chloride Carbon Dioxide Anion Gap BUN Creatinine Est GFR ( Amer) Est GFR (Non-Af Amer) POC Glucose (mg/dL) 90 132 H Random Glucose Calcium Troponin I TSH 3rd Generation Urine Color Yellow Urine Appearance Cloudy Urine pH 7.0 Ur Specific [place] 1.010 Urine Protein Trace H Urine Glucose (UA) Negative Urine Ketones Negative Urine Blood Negative Urine Nitrate Negative Urine Bilirubin Negative Urine Urobilinogen 0.2 Ur Leukocyte Esterase Negative Urine RBC 0 - 2 Urine WBC 0 - 2 Ur Epithelial Cells None Urine Bacteria Few 07/20/17 07/21/17 07/21/17 21:06 02:10 05:30 WBC 14.3 H RBC 4.59 Hgb 13.7 L Hct 41.6 L MCV 90.6 MCH 29.8 MCHC 32.9 RDW 14.5 Plt Count 235 MPV 11.9 H Gran % 76.9 H Lymph % (Auto) 13.7 L [place] % (Auto) 5.5 Eos % (Auto) 3.9 Baso % (Auto) 0.0 Gran # 11.00 H Lymph # (Auto) 2.0 [place] # (Auto) 0.8 H Eos # (Auto) 0.6 Baso # (Auto) 0.00 Sodium Potassium Chloride Carbon Dioxide Anion Gap BUN Creatinine Est GFR ( Amer) Est GFR (Non-Af Amer) POC Glucose (mg/dL) 132 H Random Glucose Calcium Troponin I 0.07 D TSH 3rd Generation Urine Color Urine Appearance Urine pH Ur Specific [place] Urine Protein Urine Glucose (UA) Urine Ketones Urine Blood Urine Nitrate Urine Bilirubin Urine Urobilinogen Ur Leukocyte Esterase Urine RBC Urine WBC Ur Epithelial Cells Urine Bacteria 07/21/17 07/21/17 07/21/17 05:30 05:30 07:59 WBC RBC Hgb Hct MCV MCH MCHC RDW Plt Count MPV Gran % Lymph % (Auto) [place] % (Auto) Eos % (Auto) Baso % (Auto) Gran # Lymph # (Auto) [place] # (Auto) Eos # (Auto) Baso # (Auto) Sodium 138 Potassium 4.7 Chloride 102 Carbon Dioxide 23 Anion Gap 18 BUN 111 H Creatinine 6.2 H Est GFR ( Amer) 11 Est GFR (Non-Af Amer) 9 POC Glucose (mg/dL) 134 H Random Glucose 110 Calcium 9.0 Troponin I TSH 3rd Generation 0.67 Urine Color Urine Appearance Urine pH Ur Specific [place] Urine Protein Urine Glucose (UA) Urine Ketones Urine Blood Urine Nitrate Urine Bilirubin Urine Urobilinogen Ur Leukocyte Esterase Urine RBC Urine WBC Ur Epithelial Cells Urine Bacteria Assessment & Plan - Assessment and Plan (Free Text) Assessment: 61 y/o male has bilateral lower leg tinea pedis with scaling and hyperpigmentation/hemosiderin deposits Plan: Pt seen and evaluated at bedside Discussed with attending Dr. Gardner Labs and vitals reviewed- afebrile, WBC 14.3 Rx Lotrimin and Vit A&D ointments to be applied to bilateral legs Pt advised to follow up as outpatient with his button attaching machine operator Dr. Jimenez for routine care
[2017-07-21] MEDS ORDERED: Vitamins A & D Oint UD Foilpak TOP SCH (11:00)
--- NOTE | 2017-07-21 14:13 | CP.PCM.DIS ---
<Jeanmarie Snider - Last Filed: 07/21/17 14:00> Provider - Provider Date of Admission: 07/20/17 11:24 Attending physician: Cecile Rahman MD Primary care physician: Anthony Tobias MD Time Spent in preparation of Discharge (in minutes): 45 Diagnosis - Discharge Diagnosis (1) Blurry vision Status: Resolved Priority: Medium (2) Hypoglycemia Status: Resolved Priority: Medium (3) Diabetes Status: Chronic Priority: Medium (4) Congestive heart failure Status: Chronic Priority: Medium (5) Coronary artery disease Status: Chronic Priority: High Hospital Course - Lab Results Lab Results: Micro Results 07/20/17 11:36 Urine,Clean Catch Urine Culture - Final No Growth (<1,000 CFU/ML) Most Recent Lab Values WBC 14.3 10^3/ul (4.5-11.0) H 07/21/17 05:30 RBC 4.59 10^6/uL (3.5-6.1) 07/21/17 05:30 Hgb 13.7 g/dL (14.0-18.0) L 07/21/17 05:30 Hct 41.6 % (42.0-52.0) L 07/21/17 05:30 MCV 90.6 fl (80.0-105.0) 07/21/17 05:30 MCH 29.8 pg (25.0-35.0) 07/21/17 05:30 MCHC 32.9 g/dl (31.0-37.0) 07/21/17 05:30 RDW 14.5 % (11.5-14.5) 07/21/17 05:30 Plt Count 235 10^3/uL (120.0-450.0) 07/21/17 05:30 MPV 11.9 fl (7.0-11.0) H 07/21/17 05:30 Gran % 76.9 % (50.0-68.0) H 07/21/17 05:30 Lymph % (Auto) 13.7 % (22.0-35.0) L 07/21/17 05:30 [place] % (Auto) 5.5 % (1.0-6.0) 07/21/17 05:30 Eos % (Auto) 3.9 % (1.5-5.0) 07/21/17 05:30 Baso % (Auto) 0.0 % (0.0-3.0) 07/21/17 05:30 Gran # 11.00 (1.4-6.5) H 07/21/17 05:30 Lymph # (Auto) 2.0 (1.2-3.4) 07/21/17 05:30 [place] # (Auto) 0.8 (0.1-0.6) H 07/21/17 05:30 Eos # (Auto) 0.6 (0.0-0.7) 07/21/17 05:30 Baso # (Auto) 0.00 K/mm3 (0.0-2.0) 07/21/17 05:30 PT 11.4 SECONDS (9.4-12.5) 07/20/17 09:40 INR 0.99 (0.93-1.08) 07/20/17 09:40 APTT 29.5 Seconds (25.1-36.5) 07/20/17 09:40 Sodium 138 mmol/L (132-148) 07/21/17 05:30 Potassium 4.7 mmol/L (3.6-5.0) 07/21/17 05:30 Chloride 102 mmol/L (98-107) 07/21/17 05:30 Carbon Dioxide 23 mmol/L (21-33) 07/21/17 05:30 Anion Gap 18 (10-20) 07/21/17 05:30 BUN 111 mg/dL (7-21) H 07/21/17 05:30 Creatinine 6.2 mg/dl (0.8-1.5) H 07/21/17 05:30 Est GFR ( Amer) 11 07/21/17 05:30 Est GFR (Non-Af Amer) 9 07/21/17 05:30 POC Glucose (mg/dL) 251 mg/dL (65-110) H 07/21/17 11:19 Random Glucose 110 mg/dL (70-110) 07/21/17 05:30 Calcium 9.0 mg/dL (8.4-10.5) 07/21/17 05:30 Total Bilirubin 0.6 mg/dL (0.2-1.3) 07/20/17 09:40 AST 26 U/L (17-59) 07/20/17 09:40 ALT 26 U/L (7-56) 07/20/17 09:40 Alkaline Phosphatase 57 U/L (38-126) 07/20/17 09:40 Total Creatine Kinase 32 U/L (35-230) L 07/20/17 09:40 Troponin I 0.07 ng/mL D 07/21/17 02:10 NT-Pro-B Natriuret Pep 2740 pg/mL (0-450) H 07/20/17 09:40 Total Protein 8.4 g/dL (5.8-8.3) H 07/20/17 09:40 Albumin 4.4 g/dL (3.0-4.8) 07/20/17 09:40 Globulin 4.0 gm/dL 07/20/17 09:40 Albumin/Globulin Ratio 1.1 (1.1-1.8) 07/20/17 09:40 Lipase 251 U/L (23-300) 07/20/17 09:40 TSH 3rd Generation 0.67 mIU/mL (0.46-4.68) 07/21/17 05:30 Urine Color Yellow (YELLOW) 07/20/17 11:36 Urine Appearance Cloudy (CLEAR) 07/20/17 11:36 Urine pH 7.0 (4.7-8.0) 07/20/17 11:36 Ur Specific [place] 1.010 (1.005-1.035) 07/20/17 11:36 Urine Protein Trace mg/dL (<30 mg/dL) H 07/20/17 11:36 Urine Glucose (UA) Negative mg/dL (NEGATIVE) 07/20/17 11:36 Urine Ketones Negative mg/dL (NEGATIVE) 07/20/17 11:36 Urine Blood Negative (NEGATIVE) 07/20/17 11:36 Urine Nitrate Negative (NEGATIVE) 07/20/17 11:36 Urine Bilirubin Negative (NEGATIVE) 07/20/17 11:36 Urine Urobilinogen 0.2 E.U./dL (<1 E.U./dL) 07/20/17 11:36 Ur Leukocyte Esterase Negative [place]/uL (NEGATIVE) 07/20/17 11:36 Urine RBC 0 - 2 /hpf (0-2) 07/20/17 11:36 Urine WBC 0 - 2 /hpf (0-6) 07/20/17 11:36 Ur Epithelial Cells None /hpf (0-5) 07/20/17 11:36 Urine Bacteria Few (NEG) 07/20/17 11:36 - Hospital Course Hospital Course: Patient is a 61 M with past medical history that includes diabetes, CHF EF 34%, renal failure, CAD with stents, s/p ICD and developmental delay who was admitted for evaluation and treatment of blurry vision. With the use of physical examinations, lab work, and imaging the patient was diagnosed with and treated for hypoglycemia along with the patients chronic medical conditions. During their hospital stay the patient was seen by Podiatry (Dr. Gardner) whose recommendations were both appreciated and utilized in the care for this patient. Podiatry diagnosed bilateral lower leg tinea pedis with scaling and hyperpigmentation/hemosiderin deposits. Recommended treatment is with Lotrimin and Vit A&D and follow up as outpatient with his organic lab worker Dr. Jimenez for routine care. During their hospital stay the patient underwent a chest xray which was reviewed, appreciated, and utilized in the management of the patients clinical course. CXR showed no active disease. Patient was treated with dextrose , aspirin, plavix, synthroid, flomax amongst other empiric/therapeutic medications. At this time the patient is medically stable for discharge. Patient understands and appreciates discharge plan. Patient instructed to follow up with primary care physicians and referrals within three to five days from discharge. Furthermore, the patient is instructed to take medications as prescribed and to return to emergency room for evaluation of intractable headache, fever, chills, dizziness, chest pain, shortness of breath, abdominal pain, nausea, vomiting, diarrhea, constipation, and urinary symptoms. This is a brief summary of the patients hospital course. Please see patient chart for full details. Discharge Exam - Head Exam Head Exam: ATRAUMATIC, NORMOCEPHALIC - Additional Findings Additional findings: - Constitutional Appears: No Acute Distress - Head Exam Head Exam: ATRAUMATIC, NORMOCEPHALIC - Eye Exam Eye Exam: EOMI, Normal appearance Pupil Exam: PERRL - ENT Exam ENT Exam: Mucous Membranes Moist - Respiratory Exam Respiratory Exam: Clear to Auscultation Bilateral, NORMAL BREATHING PATTERN - Cardiovascular Exam Cardiovascular Exam: REGULAR RHYTHM, +S1, +S2 - GI/Abdominal Exam GI & Abdominal Exam: Normal Bowel Sounds, Soft. absent: Tenderness - Extremities Exam Extremities exam: Positive for: normal capillary refill, pedal pulses present. Negative for: calf tenderness - Back Exam Back exam: absent: CVA tenderness (L), CVA tenderness (R) - Neurological Exam Neurological exam: Alert - Psychiatric Exam Psychiatric exam: Normal Affect, Normal Mood - Skin Skin Exam: Dry, Intact, Warm Additional comments: R supraclavicular scar from ICD B/L lower leg and ankle scaling with hyperpigmentation and hemosiderin deposits. No open lesions Discharge Plan - Discharge Medications Prescriptions: Calcitriol 0.25 mcg PO DAILY #14 capsule Amiodarone [Cordarone] 200 mg PO DAILY #14 tab Insulin Human Regular-MED [HumuLIN R MED] See Protocol SC ACHS #1 vial Sodium Polystyrene Sulfonate [kayeXALATE Susp] 15 gm NA DAILY #1 bottle Calcium Acetate [Phoslo] 667 mg PO DAILY #14 tab - Follow Up Plan Condition: FAIR Disposition: HOME/ ROUTINE Patient education suggested?: Yes Instructions: Low Blood Sugar, Adult (DC), Diabetes Diet Additional Instructions: Patient Instructions: Take medications as prescribed. Continue insulin sliding scale. Discontinue glyburide, glargine, and norvasc. Change lasix to 80mg po once daily. Continue all other home medications as previous. Follow up with Dr. Ricks and Dr. Artis Jimenez within three to five days from discharge Return to the emergency room for evaluation of intractable headache, fever, chills, dizziness, chest pain, shortness of breath, abdominal pain, nausea, vomiting, diarrhea, constipation, and urinary symptoms. Referrals: Anthony Tobias MD [Primary Care Provider] - Jose Ricks DO [Medical Doctor] - Artis Jimenez DPM [Staff Provider] - <Cecile Rahman - Last Filed: 07/22/17 15:43> Provider - Provider Date of Admission: 07/20/17 11:24 Attending physician: Cecile Rahman MD Primary care physician: Anthony Tobias MD Hospital Course - Lab Results Lab Results: Micro Results 07/20/17 11:36 Urine,Clean Catch Urine Culture - Final No Growth (<1,000 CFU/ML) Most Recent Lab Values WBC 14.3 10^3/ul (4.5-11.0) H 05/03/18 05:30 RBC 4.59 10^6/uL (3.5-6.1) 07/21/17 05:30 Hgb 13.7 g/dL (14.0-18.0) L 07/21/17 05:30 Hct 41.6 % (42.0-52.0) L 07/21/17 05:30 MCV 90.6 fl (80.0-105.0) 07/21/17 05:30 MCH 29.8 pg (25.0-35.0) 07/21/17 05:30 MCHC 32.9 g/dl (31.0-37.0) 07/21/17 05:30 RDW 14.5 % (11.5-14.5) 07/21/17 05:30 Plt Count 235 10^3/uL (120.0-450.0) 07/21/17 05:30 MPV 11.9 fl (7.0-11.0) H 07/21/17 05:30 Gran % 76.9 % (50.0-68.0) H 07/21/17 05:30 Lymph % (Auto) 13.7 % (22.0-35.0) L 07/21/17 05:30 [place] % (Auto) 5.5 % (1.0-6.0) 07/21/17 05:30 Eos % (Auto) 3.9 % (1.5-5.0) 07/21/17 05:30 Baso % (Auto) 0.0 % (0.0-3.0) 07/21/17 05:30 Gran # 11.00 (1.4-6.5) H 07/21/17 05:30 Lymph # (Auto) 2.0 (1.2-3.4) 07/21/17 05:30 [place] # (Auto) 0.8 (0.1-0.6) H 07/21/17 05:30 Eos # (Auto) 0.6 (0.0-0.7) 07/21/17 05:30 Baso # (Auto) 0.00 K/mm3 (0.0-2.0) 07/21/17 05:30 PT 11.4 SECONDS (9.4-12.5) 07/20/17 09:40 INR 0.99 (0.93-1.08) 07/20/17 09:40 APTT 29.5 Seconds (25.1-36.5) 07/20/17 09:40 Sodium 138 mmol/L (132-148) 07/21/17 05:30 Potassium 4.7 mmol/L (3.6-5.0) 07/21/17 05:30 Chloride 102 mmol/L (98-107) 07/21/17 05:30 Carbon Dioxide 23 mmol/L (21-33) 07/21/17 05:30 Anion Gap 18 (10-20) 07/21/17 05:30 BUN 111 mg/dL (7-21) H 07/21/17 05:30 Creatinine 6.2 mg/dl (0.8-1.5) H 07/21/17 05:30 Est GFR ( Amer) 11 07/21/17 05:30 Est GFR (Non-Af Amer) 9 07/21/17 05:30 POC Glucose (mg/dL) 251 mg/dL (65-110) H 07/21/17 11:19 Random Glucose 110 mg/dL (70-110) 07/21/17 05:30 Calcium 9.0 mg/dL (8.4-10.5) 07/21/17 05:30 Total Bilirubin 0.6 mg/dL (0.2-1.3) 07/20/17 09:40 AST 26 U/L (17-59) 07/20/17 09:40 ALT 26 U/L (7-56) 07/20/17 09:40 Alkaline Phosphatase 57 U/L (38-126) 07/20/17 09:40 Total Creatine Kinase 32 U/L (35-230) L 07/20/17 09:40 Troponin I 0.07 ng/mL D 07/21/17 02:10 NT-Pro-B Natriuret Pep 2740 pg/mL (0-450) H 07/20/17 09:40 Total Protein 8.4 g/dL (5.8-8.3) H 07/20/17 09:40 Albumin 4.4 g/dL (3.0-4.8) 07/20/17 09:40 Globulin 4.0 gm/dL 07/20/17 09:40 Albumin/Globulin Ratio 1.1 (1.1-1.8) 07/20/17 09:40 Lipase 251 U/L (23-300) 07/20/17 09:40 TSH 3rd Generation 0.67 mIU/mL (0.46-4.68) 07/21/17 05:30 Urine Color Yellow (YELLOW) 07/20/17 11:36 Urine Appearance Cloudy (CLEAR) 07/20/17 11:36 Urine pH 7.0 (4.7-8.0) 07/20/17 11:36 Ur Specific [place] 1.010 (1.005-1.035) 07/20/17 11:36 Urine Protein Trace mg/dL (<30 mg/dL) H 07/20/17 11:36 Urine Glucose (UA) Negative mg/dL (NEGATIVE) 07/20/17 11:36 Urine Ketones Negative mg/dL (NEGATIVE) 07/20/17 11:36 Urine Blood Negative (NEGATIVE) 07/20/17 11:36 Urine Nitrate Negative (NEGATIVE) 07/20/17 11:36 Urine Bilirubin Negative (NEGATIVE) 07/20/17 11:36 Urine Urobilinogen 0.2 E.U./dL (<1 E.U./dL) 07/20/17 11:36 Ur Leukocyte Esterase Negative [place]/uL (NEGATIVE) 07/20/17 11:36 Urine RBC 0 - 2 /hpf (0-2) 07/20/17 11:36 Urine WBC 0 - 2 /hpf (0-6) 07/20/17 11:36 Ur Epithelial Cells None /hpf (0-5) 07/20/17 11:36 Urine Bacteria Few (NEG) 07/20/17 11:36 Attending/Attestation - Attestation I have personally seen and examined this patient.: Yes I have fully participated in the care of the patient.: Yes I have reviewed all pertinent clinical information, including history, physical exam and plan: Yes Notes (Text): 07/22/17 15:36 Attending note; Patient seen and examined with resident. Patient is a 61 year old male with past medical history of diabetes, CHF (34%), mild MR, CKD, hypothyroidism, BPH, prison resident who was admitted for confusion and hypoglycemia. Fingerstick of 42. Patient was given D50 in the ER. Currently patient is completely alert and awake. Patient was on glyburide. Patient also got long-acting insulin last night. glyburide on long-acting insulin.. Patient will be going home on only regular insulin sliding scale. Information given to the patient's homemaker. Patient can be monitored with regular insulin sliding scale and follow up with PMD in 3 days for insulin if needed. Discussed with patient's healthcare proxy Melissa in detail. Coronary artery disease/pacemaker; continue aspirin, Plavix. Chronic kidney disease; creatinine stable. Patient follows up with [facility] for CKD. Hypertension; blood pressure on the low side. Patient is on Lasix, and Norvasc. norvasc stopped. lasix dosage Decreased from 80 twice a day to 80 daily. Leukocytosis; improved. patient is afebrile and nontoxic. Lower extremity cellulitis resolved. podiatry evaluation appreciated. discharge home today. Instructions given to Homemaker. Upon discharge the patient will follow-up with PMD Dr. Ricks. discussed with patient's healthcare proxy/cousin Melissa in detail.
== END 2017-07-21 15:11 | disposition home or self-care (01) ==
LOC: ED 09:21 → ERH 11:24 → 3RSO 13:15
PROVIDERS: ADMIT Internal Medicine; ATTEND Internal Medicine
DX: E11.649 Type 2 diabetes mellitus with hypoglycemia without coma (principal); E11.22 Type 2 diabetes mellitus with diabetic chronic kidney disease; I13.0 Hypertensive heart and chronic kidney disease with heart failure and stage 1 through stage 4 chronic kidney disease, or unspecified chronic kidney disease; N18.4 Chronic kidney disease, stage 4 (severe); I50.9 Heart failure, unspecified; I25.10 Atherosclerotic heart disease of native coronary artery without angina pectoris; N40.0 Benign prostatic hyperplasia without lower urinary tract symptoms; E03.9 Hypothyroidism, unspecified; B35.3 Tinea pedis; J44.9 Chronic obstructive pulmonary disease, unspecified; Z95.5 Presence of coronary angioplasty implant and graft; Z95.810 Presence of automatic (implantable) cardiac defibrillator
CPT/HCPCS: 36415; 71045; 80048; 80053; 81001; 82550; 82948; 83690; 83880; 84443; 84484; 85025; 85610; 85730; 87086; 93005; 99285; G0378; J7070

== ENCOUNTER 2017-12-07 08:01 | Inpatient (IN) | payer MEDICAID ==
[2017-12-07 08:15] VITALS: BMI 28.8
--- NOTE | 2017-12-07 09:07 | ED PDOC ---
Arrival/HPI - General Historian: Patient - General Chief Complaint: GI Problem Time Seen by Provider: 12/07/17 08:46 - History of Present Illness Narrative History of Present Illness (Text): 12/07/17 09:06 Patient is a 62 year old male CHF, CAD with stents, developmental delay, s/p ICD placement, CKD stage 4, hypertension, hypothyroidism, DM type 2, and BPH presenting to the complaint of abdominal pain. Patient is accompanied by a [employer]ci[employer] energy rater. The patient care secretary provided most of the history due to the patient's mental status. The patient started experiencing diarrhea yesterday. The diarrhea is described as loose, non-bloody but formed stools. This morning he started to experience abdominal pain and vomited once this morning. The abdominal pain is vague and the patient is unable to describe the pain. He complains of subjective fevers but did not take his temperature. Per case manger, patient requested to come to the hospital this morning due to the pain. He is no longer nauseous at this time. Denies chest pain, shortness of breath, headaches, numbness or tingling. PMD: Dr. Angel AGUILAR: Family Member Melissa - Patient makes his own medical decisions and signs his own consent forms, per conversation with Melissa. 12/07/17 14:12 (DanitaJuanito) Past Medical History - Provider Review Nursing Documentation Reviewed: Yes - Past History Past History: No Previous - Infectious Disease Hx of Infectious Diseases: None - Tetanus Immunization Tetanus Immunization: Unknown - Cardiac Hx Cardiac Disorders: Yes (cardiac cath, coronary stent, pacemake w/ internal defibrillator) Other/Comment: CAD - Pulmonary Hx Respiratory Disorders: Yes Hx Chronic Obstructive Pulmonary Disease (COPD): Yes - Neurological Hx Neurological Disorder: Yes (MR) - HEENT Hx HEENT Disorder: No - Renal Hx Renal Disorder: Yes Hx Renal Failure: Yes - Endocrine/Metabolic Hx Endocrine Disorders: Yes Hx Diabetes Mellitus Type 1: Yes Hx Diabetes Mellitus Type 2: Yes Hx Hypothyroidism: Yes - Hematological/Oncological Hx Blood Disorders: No - Integumentary Hx Dermatological Disorder: Yes - Musculoskeletal/Rheumatological Hx Musculoskeletal Disorders: Yes Hx Falls: Yes - Gastrointestinal Hx Gastrointestinal Disorders: No - Genitourinary/Gynecological Hx Genitourinary Disorders: No - Psychiatric Hx Psychophysiologic Disorder: Yes Hx Substance Use: No Other/Comment: Developmental delay. - Surgical History Hx Cardiac Catheterization: Yes Hx Coronary Stent: Yes Other/Comment: cardiac cath, pacemaker with internal defribilator - Anesthesia Hx Anesthesia: Yes Hx Anesthesia Reactions: No Hx Malignant Hyperthermia: No - Suicidal Assessment Feels Threatened In Home Enviroment: No Family/Social History - Physician Review Nursing Documentation Reviewed: Yes Family/Social History: Unknown Family HX Smoking Status: Never Smoked Hx Alcohol Use: No Hx Substance Use: No Hx Substance Use Treatment: No Allergies/Home Meds Allergies/Adverse Reactions: Allergies No Known Allergies Allergy (Verified 07/20/17 13:29) Home Medications: Home Meds Medication Instructions Recorded Confirmed Carvedilol [Coreg] 25 mg PO BID 01/03/16 12/07/17 Levothyroxine [Synthroid] 125 mcg PO DAILY 01/03/16 12/07/17 Furosemide [Lasix] 80 mg PO DAILY 12/31/16 12/07/17 Sodium Bicarbonate Tab 650 mg PO DAILY 01/22/17 12/07/17 Aspirin [Adult Low Dose Aspirin EC] 1 tab PO DAILY 12/07/17 12/07/17 Atorvastatin [Lipitor] 1 tab PO HS 12/07/17 12/07/17 Calcium Acetate [Phoslo] 3 cap PO TID 12/07/17 12/07/17 Enalapril Maleate [Vasotec] 1 tab PO DAILY 12/07/17 12/07/17 Febuxostat [Uloric] 1 tab PO DAILY 12/07/17 12/07/17 Insulin Human Regular [Novolin R] See Protocol IA ACHS 12/07/17 12/07/17 [id number] Ethyl Esters 1 GM 2 cap PO BID 12/07/17 12/07/17 [Lovaza] Pantoprazole Sodium [Protonix] 1 tab PO DAILY 12/07/17 12/07/17 metFORMIN [glucOPHAGE] 1 tab PO BID 12/07/17 12/07/17 Review of Systems - Physician Review All systems were reviewed & negative as marked: Yes - Review of Systems Constitutional: Normal, Fevers (subjective). absent: Fatigue Eyes: Normal. absent: Vision Changes ENT: Normal. absent: Sore Throat, Rhinorrhea Respiratory: Normal. absent: SOB, Cough, Wheezing Cardiovascular: Normal. absent: Chest Pain, Calf Pain, CHASE Gastrointestinal: Abdominal Pain (unable to describe ), Stool Changes, Diarrhea (multiple episodes ), Nausea (resolved), Vomiting (1 episode ). absent: Constipation, Appetite Changes, Hematochezia Genitourinary Male: Normal. absent: Dysuria, Frequency Musculoskeletal: Normal. absent: Arthralgias, Back Pain Skin: Normal. absent: Rash Neurological: Normal. absent: Headache, Dizziness Endocrine: Normal. absent: Diaphoresis Hemo/Lymphatic: Normal Psychiatric: Normal. absent: Anxiety Physical Exam Vital Signs Reviewed: Yes Temperature: Afebrile Blood Pressure: Normal Pulse: Regular Respiratory Rate: Normal Appearance: Positive for: Well-Appearing, Non-Toxic, Comfortable Pain Distress: None Mental Status: Positive for: Alert and Oriented X 3 - Systems Exam Head: Present: Atraumatic, Normocephalic Extroacular Muscles: Present: EOMI Conjunctiva: Present: Normal Mouth: Present: Moist Mucous Membranes Nose (External): Present: Atraumatic Nose (Internal): Present: Normal Inspection, No Active Bleeding, Moist Neck: Present: Normal Range of Motion. No: Meningeal Signs, MIDLINE TENDERNESS Respiratory/Chest: Present: Clear to Auscultation, Good Air Exchange. No: Respiratory Distress, Accessory Muscle Use, Rales, Retracting, Rhonchi, Tachypneic Cardiovascular: Present: Regular Rate and Rhythm, Normal S1, S2. No: Murmurs Abdomen: Present: Tenderness (RLQ tenderness - severe), McBurney's Point Tender , Hernias (umbilical hernia - soft, reducible, mildly tender). No: Distention, Peritoneal Signs, Rovsing's Sign Present Upper Extremity: Present: NORMAL PULSES. No: Cyanosis, Edema Lower Extremity: Present: Normal Inspection, NORMAL PULSES, Other (chronic venous changes b/l). No: Edema, CALF TENDERNESS, Tenderness, Swelling Neurological: Present: GCS=15, Speech Normal, Motor Func Grossly Intact Skin: Present: Warm, Dry, Normal Color, Other (chronic venous changes in lower extremity b/l). No: Rashes Lymphatic: No: Cervical Adenopathy Psychiatric: Present: Alert, Oriented x 3, Normal Insight, Normal Concentration Vital Signs Temp Pulse Resp BP Pulse Ox 12/07/17 12:41 124 H 18 121/86 98 12/07/17 10:03 93 H 18 100/67 96 09/19/18 08:12 97.6 F 78 18 98/60 L 98 Medical Decision Making Re-evaluation Time: 11:15 Reassessment Condition: Re-examined, Unchanged - Lab Interpretations I have reviewed the lab results: Yes Interpretation: Abnormal lab values - RAD Interpretation Leave Coordinator: Radiologist - EKG Interpretation Interpreted by ED Physician: Yes Type: 12 lead EKG Comparison: Similar to previous EKG ED Course and Treatment: Patient is 62 year old male with a past medical history of CHF, CAD with stents , developmental delay, s/p ICD placement, CKD stage 4, hypertension, hypothyroidism, DM type 2 and BPH presenting with abdominal pain, diarrhea and vomiting. Abdominal exam positive for hernia (soft, reducible and mildly tender), severely tender to palpation in RLQ Labs, EKG and Abd/Pel CT w/PO contrast (r/o appy, diverticulitis, colitis or other) HyperK 7.0 worsening renal failure - Cr 6.5 (previous 6.2 in July 2017) Bicarb of 15 metabolic acidosis (Anion Gap of 18) awaiting Abd/Pel CT Albuterol/Calcium Gluconate/Kayexalate/Insulin D50 EKG - ventricularly paced rhythm at 75bpm, no peaked t waves Call placed to Dr. Corbin (hospitalist), accepted patient to hospitalist service. Requested ICU consult Call placed to Dr. Meyers (ICU), evaluated patient. Will await nephrology recommendations - if no dialysis, will accept patient to ICU Call placed to Dr. Helms (nephro) - awaiting a call back vitals stable. patient resting comfortably in bed. 12/07/17 12:48 Dr. Helms has not called back. Discussed case again with Dr. Meyers who has accepted patient to ICU. Abd/Pel CT w/PO contrast no acute intra-abdominal pathology. (Juanito Samayoa) Patient is a 62 year old male, whose past medical history includes CHF, CAD with stents, developmental delay, s/p ICD placement, CKD stage 4, hypertension, hypothyroidism, DM type 2, and BPH, presenting to the ER with abdominal pain. Physical exam shows severe RLQ tenderness, McBurney's Point tender, umbilical hernia. Patient Seen with Resident: In agreement with resident note which contains more details about the patient. Patient seen and evaluated with resident. Came up with plan and treatment together. (Cesar Bray) - Lab Interpretations Lab Results: 12/07/17 09:20 12/07/17 09:20 Lab Results 12/07/17 09:20: Phosphorus 10.3 H 12/07/17 09:20: PT 11.9, INR 1.03, APTT 37.4 H 12/07/17 09:20: Sodium 141, Potassium 7.0 H* D, Chloride 108 H, Carbon Dioxide 15 L, Anion Gap 24 H, BUN 119 H, Creatinine 6.5 H, Est GFR ( Amer) 11, Est GFR (Non-Af Amer) 9, Random Glucose 65 L, Calcium 9.7, Magnesium 1.9, Total Bilirubin 0.4, AST 19, ALT 10, Alkaline Phosphatase 66, Troponin I 0.06, Total Protein 8.5 H, Albumin 4.3, Globulin 4.2, Albumin/Globulin Ratio 1.0 L, Lipase 188 12/07/17 09:20: WBC 14.0 H, RBC 5.04, Hgb 15.0, Hct 45.8, MCV 90.9, MCH 29.8, MCHC 32.8, RDW 14.6 H, Plt Count 347, MPV 10.5, Gran % 80.8 H, Lymph % (Auto) 9.6 L, [place] % (Auto) 4.7, Eos % (Auto) 4.3, Baso % (Auto) 0.6, Gran # 11.33 H, Lymph # (Auto) 1.4, [place] # (Auto) 0.7 H, Eos # (Auto) 0.6, Baso # (Auto) 0.08 - RAD Interpretation Narrative RAD Interpretations (Text): 12/07/17 12:45 Abd/Pel CT w/PO contrast: There is a large fat containing umbilical hernia measuring 6.4 cm in diameter. The hernia defect is 3.5 cm. No acute intra-abdominal findings. (Juanito Samayoa) Radiology Orders: 12/07/17 09:03 ABD & PELVIS PO CONTRAST ONLY [CT] Stat - EKG Interpretation EKG Interpretation (Text): 12/07/17 09:11 EKG - Ventricularly paced rhythm @75 bpm - similar to previous EKG on 07/20/17 ( Juanito Samayoa) - Medication Orders Current Medication Orders: Atorvastatin Calcium (Lipitor) 20 mg PO HS ALFONSO Calcitriol (Rocaltrol) 0.25 mcg PO DAILY ALFONSO Calcium Acetate (Phoslo) 667 mg PO TID ALFONSO Carvedilol (Coreg) 25 mg PO BID ALFONSO Furosemide (Lasix) 80 mg PO DAILY ALFONSO Sodium Bicarbonate 50 meq/ (Sodium Chloride) 1,050 mls @ 100 mls/hr IV .[id number] ALFONSO Last Admin: 12/07/17 12:35 Dose: 100 mls/hr eMAR Start Stop Document 12/07/17 12:35 GMD (Rec: 12/07/17 12:35 [facility] [id number]) Intravenous Solution Start Date 12/07/17 Start Time 12:35 Levothyroxine Sodium (Synthroid) 125 mcg PO DAILY ALFONSO Lisinopril (Zestril) 5 mg PO DAILY ALFONSO Sodium Bicarbonate (Sodium Bicarbonate Tab) 650 mg PO TID ALFONSO Tamsulosin HCl (Flomax) 0.4 mg PO DAILY ALFONSO Discontinued Medications Albuterol Sulfate (Albuterol 0.083% Inhal Lizy (2.5 Mg/3 Ml) Ud) 2.5 mg INH STAT STA Stop: 12/07/17 10:07 Last Admin: 12/07/17 10:31 Dose: 2.5 mg Dextrose (Dextrose 50% Inj) 50 ml IVP STAT STA Stop: 12/07/17 10:09 Last Admin: 12/07/17 10:31 Dose: 50 ml IVP Administration Document 12/07/17 10:31 GMD (Rec: 12/07/17 10:32 [facility] [id number]) Charges for Administration # of IVP Administrations 1 Calcium Gluconate 1,000 mg/ (Sodium Chloride) 110 mls @ 110 mls/hr IVPB ONCE ONE Stop: 12/07/17 11:05 Last Admin: 12/07/17 10:31 Dose: 110 mls/hr eMAR Start Stop Document 12/07/17 10:31 GMD (Rec: 12/07/17 10:31 D [id number]) Intravenous Solution Start Date 12/07/17 Start Time 10:31 End Date 12/07/17 End time 11:31 Total Infusion Time 60 Insulin Human Regular (Humulin R) 10 units IVP STAT STA Stop: 12/07/17 10:08 Last Admin: 12/07/17 10:32 Dose: 10 unit IVP Administration Document 12/07/17 10:32 GMD (Rec: 12/07/17 10:32 GMD [id number]) Charges for Administration # of IVP Administrations 1 Sodium Bicarbonate (Sodium Bicarbonate Tab) 650 mg PO TID ALFONSO Sodium Bicarbonate (Sodium Bicarbonate 8.4% (50 Meq) Syringe) 50 meq IVP ONCE ONE Stop: 12/07/17 13:39 Sodium Polystyrene Sulfonate (Kayexalate Susp) 15 gm PO STAT STA Stop: 12/07/17 10:07 Last Admin: 12/07/17 10:33 Dose: 15 gm Disposition/Present on Arrival - Present on Arrival Any Indicators Present on Arrival: Yes History of DVT/PE: No History of Uncontrolled Diabetes: Yes Urinary Catheter: No History of Decub. Ulcer: No History Surgical Site Infection Following: None - Disposition Have Diagnosis and Disposition been Completed?: Yes Disposition Time: 11:20 Patient Plan: Admission, ICU - Disposition Diagnosis: Hyperkalemia, Metabolic acidosis, Diarrhea, Chronic kidney disease Disposition: HOSPITALIZED Patient Problems: Current Active Problems Problem Status Onset Hyperkalemia Acute Diarrhea Acute Metabolic acidosis Acute Chronic kidney disease Chronic Condition: CRITICAL
[2017-12-07] MEDS ORDERED: Iohexol 240 (50 ml) ONE (09:09)
[2017-12-07 09:37] LABS: BASO # 0.08 K/mm3 (0.0-2.0); BASO % 0.6 % (0.0-3.0); EOS # 0.6 (0.0-0.7); EOS % 4.3 % (1.5-5.0); GRAN # 11.33 (1.4-6.5); GRAN % 80.8 % (50.0-68.0); LYMPH # 1.4 (1.2-3.4); LYMPH % 9.6 % (22.0-35.0); MEAN CELL VOLUME 90.9 fl (80.0-105.0); MEAN CORPUSCULAR HEMOGLOBIN 29.8 pg (25.0-35.0); MEAN CORPUSCULAR HGB CONC 32.8 g/dl (31.0-37.0); MEAN PLATELET VOLUME 10.5 fl (7.0-11.0); MONO # 0.7 (0.1-0.6); MONO % 4.7 % (1.0-6.0); RBC 5.04 10^6/uL (3.5-6.1); RED CELL DISTRIBUTION WIDTH 14.6 % (11.5-14.5)
[2017-12-07 09:43] LABS: INR 1.03; PARTIAL THROMBOPLASTIN TIME 37.4 Seconds (25.1-36.5); PROTHROMBIN TIME 11.9 SECONDS (9.4-12.5)
[2017-12-07 09:56] LABS: TROPONIN I 0.06 ng/mL
[2017-12-07 09:58] LABS: ALBUMIN 4.3 g/dL (3.0-4.8); CALCIUM 9.7 mg/dL (8.4-10.5)
[2017-12-07] MEDS ORDERED: Albuterol 0.083% Inhal Sol (2.5 mg/3 mL) UD INH STA (10:06)
[2017-12-07] MEDS ORDERED: Sod Polystyrene Sulf 15 gm/60 ml Susp PO STA (10:06)
[2017-12-07] MEDS ORDERED: Insulin Regular 1 UNITS/0.01 ML ML IVP STA (10:07)
[2017-12-07] MEDS ORDERED: Dextrose 50% SYRINGE Inj (50 ml) IVP STA (10:08)
--- NOTE | 2017-12-07 11:26 | CP.PCM.HP ---
Addendum entered and electronically signed by Mauri Marquez DO 12/07/17 13:51 : CT abdomen and pelvis shows large umbilical hernia. No acute findings. Original Note: <Mauri Marquez - Last Filed: 12/07/17 13:35> History of Present Illness - History of Present Illness History of Present Illness: Mauri Marquez, PGY2, HPI for Hospitalist Service: CC: diarrhea, nausea, vomiting for two days 62 year old male with past medical history of DMII, developmental delay, hypothyroidism, CAD s/p PCI, CHF with EF 34%, Stage IV CKD who presents for 2 days of diarrhea and one episode of vomiting. He lives in his own apartment which is part of a alf. He has a high value associate present at bedside though the patient seems able to answer most questions on his own. He reports having non- bloody diarrhea almost every hour for the past two days. He reports having one episode of vomiting as well today. He denies any abdominal pain at baseline. In the ED the patient was noticed to have a "new", reducible umbilical hernia. The patient denies any chest pain, diaphoresis, dyspnea, recent sick contacts, antibiotic use. He does make urine. ICU and Nephrology team were consulted. Otherwise, 12 point review of system was negative. PMH: CHF s/p ICD placement, CAD s/p PCI, CKD stage 4, hypertension, hypothyroidism, DM type 2, BPH, resident of alf PSH: ICD, PCI Allergies: NKDA Family Hx: Reviewed and noncontributory Social Hx: Denies tobacco, alcohol and illicit drug use PMD: Angel Present on Admission - Present on Admission Any Indicators Present on Admission: No Review of Systems - Review of Systems All systems: reviewed and no additional remarkable complaints except (as per HPI ) Past Patient History - Infectious Disease Hx of Infectious Diseases: None - Tetanus Immunizations Tetanus Immunization: Unknown - Past Medical History & Family History Past Medical History?: Yes - Past Social History Smoking Status: Never Smoked - CARDIAC Hx Cardiac Disorders: Yes (cardiac cath, coronary stent, pacemake w/ internal defibrillator) Other/Comment: CAD - PULMONARY Hx Respiratory Disorders: Yes Hx Chronic Obstructive Pulmonary Disease (COPD): Yes - NEUROLOGICAL Hx Neurological Disorder: Yes (MR) - HEENT Hx HEENT Problems: No - RENAL Hx Chronic Kidney Disease: Yes Hx Renal Failure: Yes - ENDOCRINE/METABOLIC Hx Endocrine Disorders: Yes Hx Diabetes Mellitus Type 1: Yes Hx Diabetes Mellitus Type 2: Yes Hx Hypothyroidism: Yes - HEMATOLOGICAL/ONCOLOGICAL Hx Blood Disorders: No - INTEGUMENTARY Hx Dermatological Problems: Yes - MUSCULOSKELETAL/RHEUMATOLOGICAL Hx Musculoskeletal Disorders: Yes Hx Falls: Yes - GASTROINTESTINAL Hx Gastrointestinal Disorders: No - GENITOURINARY/GYNECOLOGICAL Hx Genitourinary Disorders: No - PSYCHIATRIC Hx Psychophysiologic Disorder: Yes Hx Substance Use: No Other/Comment: Developmental delay. - SURGICAL HISTORY Hx Cardiac Catheterization: Yes Hx Coronary Stent: Yes Other/Comment: cardiac cath, pacemaker with internal defribilator - ANESTHESIA Hx Anesthesia: Yes Hx Anesthesia Reactions: No Hx Malignant Hyperthermia: No Meds Allergies/Adverse Reactions: Allergies Allergy/AdvReac Type Severity Reaction Status Date / Time No Known Allergies Allergy Verified 07/20/17 13:29 Physical Exam - Constitutional Appears: Non-toxic, No Acute Distress - Head Exam Head Exam: ATRAUMATIC, NORMOCEPHALIC - Eye Exam Eye Exam: EOMI, Normal appearance - ENT Exam ENT Exam: Mucous Membranes Dry - Neck Exam Neck exam: Positive for: Normal Inspection - Respiratory Exam Respiratory Exam: Clear to Auscultation Bilateral, NORMAL BREATHING PATTERN. absent: Accessory Muscle Use - Cardiovascular Exam Cardiovascular Exam: RRR, +S1, +S2 - GI/Abdominal Exam GI & Abdominal Exam: Soft. absent: Guarding, Rebound - Rectal Exam Rectal Exam: absent: Deferred - Extremities Exam Extremities exam: Negative for: calf tenderness, normal inspection Additional comments: chronic venous stasis - Back Exam Back exam: NORMAL INSPECTION. absent: CVA tenderness (L), CVA tenderness (R) - Neurological Exam Neurological exam: Alert, CN II-XII Intact, Oriented x3 - Psychiatric Exam Psychiatric exam: Normal Affect, Normal Mood - Skin Skin Exam: Dry, Intact, Normal Color, Warm Results - Vital Signs Recent Vital Signs: Last Vital Signs Temp 97.6 F 12/07/17 08:12 Pulse 93 H 12/07/17 10:03 Resp 18 12/07/17 10:03 BP 100/67 12/07/17 10:03 Pulse Ox 96 12/07/17 10:03 - Labs Result Diagrams: 12/07/17 09:20 12/07/17 09:20 Labs: Laboratory Results - last 24 hr 09/12/07/17 12/07/17 09:20 09:20 09:20 WBC 14.0 H RBC 5.04 Hgb 15.0 Hct 45.8 MCV 90.9 MCH 29.8 MCHC 32.8 RDW 14.6 H Plt Count 347 MPV 10.5 Gran % 80.8 H Lymph % (Auto) 9.6 L [place] % (Auto) 4.7 Eos % (Auto) 4.3 Baso % (Auto) 0.6 Gran # 11.33 H Lymph # (Auto) 1.4 [place] # (Auto) 0.7 H Eos # (Auto) 0.6 Baso # (Auto) 0.08 PT 11.9 INR 1.03 APTT 37.4 H Sodium 141 Potassium 7.0 H* D Chloride 108 H Carbon Dioxide 15 L Anion Gap 24 H BUN 119 H Creatinine 6.5 H Est GFR ( Amer) 11 Est GFR (Non-Af Amer) 9 Random Glucose 65 L Calcium 9.7 Phosphorus Magnesium 1.9 Total Bilirubin 0.4 AST 19 ALT 10 Alkaline Phosphatase 66 Troponin I 0.06 Total Protein 8.5 H Albumin 4.3 Globulin 4.2 Albumin/Globulin Ratio 1.0 L Lipase 188 12/07/17 09:20 WBC RBC Hgb Hct MCV MCH MCHC RDW Plt Count MPV Gran % Lymph % (Auto) [place] % (Auto) Eos % (Auto) Baso % (Auto) Gran # Lymph # (Auto) [place] # (Auto) Eos # (Auto) Baso # (Auto) PT INR APTT Sodium Potassium Chloride Carbon Dioxide Anion Gap BUN Creatinine Est GFR ( Amer) Est GFR (Non-Af Amer) Random Glucose Calcium Phosphorus 10.3 H Magnesium Total Bilirubin AST ALT Alkaline Phosphatase Troponin I Total Protein Albumin Globulin Albumin/Globulin Ratio Lipase Assessment & Plan - Assessment and Plan (Free Text) Assessment: 62 year old male with a past medical history significant for Stage IV CKD (not on HD), CAD with AICD, DM II, and developmental delay who presents with 2 days of intractable diarrhea, nausea, and one episode of vomiting. He was found to have hyperkalemic, uremic, and hypermagnesemic in the ED. Insulin, duonebs, and Kayexelate were given in the ED. ICU and nephrology, Dr. Helms, were consulted. Plan: 1) Kidney failure with hyperkalemia and uremia (stage IV) - EKG showed no arrhythmia or peak T-waves - Nephrology consulted - ICU consulted - Continue with NaHCO3 650 TID - Phoslo 667 mg TID - Calcitriol 0.25 mg - Holding protonix, metformin, Uloric 2) Hyperkalemia - Initial K of 7.0 - Kayexelate 15 mg, Insulin 25 units IVP, and Duonebs given in ED - Repeat BMP at 13:00 was 5.6 and q4h thereafter 3) DM II - ISS medium lispro 4) CAD - Holding aspirin and plavix - Continue with Carvedilol 25 mg BID - Atorvastatin 20 mg PO HS 5) Hypertension Lasix 80 mg PO daily (unless otherwise indicated) 6) Hypoglycemia - D50 as needed 7) DVT prophylaxis - Heparin 5,000 units q8h Case reviewed and discussed with attending physician, Dr. Rahman - Date & Time Date: 12/07/17 Time: 13:45 <Ceicle Rahman - Last Filed: 12/09/17 15:01> Results - Vital Signs Recent Vital Signs: Last Vital Signs Temp 98 F 12/09/17 00:00 Pulse 80 12/09/17 11:05 Resp 24 12/09/17 08:31 BP 127/80 12/09/17 11:05 Pulse Ox 82 L 12/09/17 08:00 - Labs Result Diagrams: 12/09/17 05:25 12/09/17 05:25 Labs: Laboratory Results - last 24 hr 12/08/17 12/08/17 12/08/17 14:30 16:23 21:53 WBC RBC Hgb Hct MCV MCH MCHC RDW Plt Count MPV Gran % Lymph % (Auto) [place] % (Auto) Eos % (Auto) Baso % (Auto) Gran # Lymph # (Auto) [place] # (Auto) Eos # (Auto) Baso # (Auto) Sodium Potassium Chloride Carbon Dioxide Anion Gap BUN Creatinine Est GFR ( Amer) Est GFR (Non-Af Amer) POC Glucose (mg/dL) 92 86 Random Glucose Calcium Phosphorus Magnesium Total Bilirubin AST ALT Alkaline Phosphatase Total Protein Albumin Globulin Albumin/Globulin Ratio Stool Leukocytes, Qual Negative 12/09/17 12/09/17 12/09/17 05:25 05:25 06:55 WBC 12.6 H RBC 4.96 Hgb 14.8 Hct 44.6 MCV 89.9 MCH 29.8 MCHC 33.2 RDW 14.4 Plt Count 252 MPV 10.5 Gran % 69.3 H Lymph % (Auto) 10.7 L [place] % (Auto) 15.6 H Eos % (Auto) 3.8 Baso % (Auto) 0.6 Gran # 8.69 H Lymph # (Auto) 1.3 [place] # (Auto) 2.0 H Eos # (Auto) 0.5 Baso # (Auto) 0.08 Sodium 140 Potassium 4.7 Chloride 104 Carbon Dioxide 25 Anion Gap 15 BUN 57 H Creatinine 3.7 H Est GFR ( Amer) 20 Est GFR (Non-Af Amer) 17 POC Glucose (mg/dL) 81 Random Glucose 106 Calcium 9.5 Phosphorus 6.4 H Magnesium 1.7 Total Bilirubin 0.6 AST 20 ALT 9 Alkaline Phosphatase 61 Total Protein 7.7 Albumin 3.9 Globulin 3.8 Albumin/Globulin Ratio 1.0 L Stool Leukocytes, Qual 12/09/17 08:30 WBC RBC Hgb Hct MCV MCH MCHC RDW Plt Count MPV Gran % Lymph % (Auto) [place] % (Auto) Eos % (Auto) Baso % (Auto) Gran # Lymph # (Auto) [place] # (Auto) Eos # (Auto) Baso # (Auto) Sodium Potassium Chloride Carbon Dioxide Anion Gap BUN Creatinine Est GFR ( Amer) Est GFR (Non-Af Amer) POC Glucose (mg/dL) 136 H Random Glucose Calcium Phosphorus Magnesium Total Bilirubin AST ALT Alkaline Phosphatase Total Protein Albumin Globulin Albumin/Globulin Ratio Stool Leukocytes, Qual Attending/Attestation - Attestation I have personally seen and examined this patient.: Yes I have fully participated in the care of the patient.: Yes I have reviewed all pertinent clinical information: Yes Notes (Text): 12/09/17 14:58 Attending note; Patient seen and examined with resident in ER. Patient's attendant by the bedside. Patient is a 62 year old male with past medical history of DMII, developmental delay, hypothyroidism, CAD s/p PCI, CHF with EF 34%, Stage IV CKD who presents for 2 days of diarrhea and one episode of vomiting. Found to have elevated potassium. Treated with calcium gluconate, D50 and insulin and Kayexalate and albuterol treatment. EKG no acute changes. Patient will be admitted to ICU. Case discussed with dowel inserting machine operator in detail. Patient has hyperkalemia, acidosis and uremia. Nausea, vomiting may be secondary to uremia. consulted intervention radiology for permacath placement. Plan for hemodialysis today. Diabetes; continue with regular insulin sliding scale. Diarrhea; CT abdomen and pelvis showed fat containing umbilical hernia. GI evaluation requested. Continue diet as tolerated. Monitor closely in ICU. Case discussed with patient's cousin Melissa/power of accountant property in detail. Case discussed with brim blocker in detail.
--- NOTE | 2017-12-07 12:32 | CT ---
Date of service: 12/07/2017 PROCEDURE: CT Abdomen and Pelvis without intravenous contrast HISTORY: RLQ tenderness, r/o appy, diverticulitis, colitis COMPARISON: None. TECHNIQUE: Without contrast.. Contrast dose: Radiation dose: Total exam DLP = 827 mGy-cm. This CT exam was performed using one or more of the following dose reduction techniques: Automated exposure control, adjustment of the mA and/or kV according to patient size, and/or use of iterative reconstruction technique. FINDINGS: LOWER THORAX: Unremarkable. LIVER: Unremarkable. No gross lesion or ductal dilatation. GALLBLADDER AND BILE DUCTS: There is a layer of stones in the gallbladder. PANCREAS: Unremarkable. No gross lesion or ductal dilatation. SPLEEN: Unremarkable. ADRENALS: Unremarkable. No mass. KIDNEYS AND URETERS: Unremarkable. No hydronephrosis. No solid mass. VASCULATURE: Unremarkable. No aortic aneurysm. BOWEL: Unremarkable. No obstruction. No gross mural thickening. APPENDIX: Unremarkable. Normal appendix. PERITONEUM: There is a large fat containing umbilical hernia measuring 6.4 cm in diameter. The hernia defect is 3.5 cm LYMPH NODES: Unremarkable. No enlarged lymph nodes. BLADDER: Unremarkable. REPRODUCTIVE: Unremarkable. BONES: No acute fracture. OTHER FINDINGS: None. IMPRESSION: There is a large fat containing umbilical hernia measuring 6.4 cm in diameter. The hernia defect is 3.5 cm No acute intra-abdominal findings.
[2017-12-07] MEDS ORDERED: Sodium Bicarbonate (8.4%) 50 Meq Syringe IVP ONE (13:38)
--- NOTE | 2017-12-07 15:04 | CP.PCM.CON ---
<Jose Antonio Snider - Last Filed: 12/07/17 16:48> History of Present Illness - History of Present Illness History of Present Illness: Jose Antonoi Snider DO PGY1 - Internal Medicine Public Relations - ICU Consult Note CC: Nausea, Vomitting Diarrhea 62M PMH of DM2, Developmental Delay, Hypothyroidism, CAD s/p PCI, CHF Last known EF 34% (07/2016), Stage IV CKD (Baseline Cr 5.7-6.0; -07/2017), BPH, ; Presented to [facility] on 12/07 w/ [facility] home laborer for a CC of N/V and Diarrhea x2 days. History provided by program project manager due to patient's baseline mental status. Denies any bloody diarrhea and reports Nonbloody nonbilious vomit. Reports some abdominal pain prior however none endorsed by patient on exam this afternoon. farm or ranch animal caretaker reported some subjective fevers however patient denied. On presentation to ED his Potassium was found to be 7.0 w/ a BUN/Cr of 119/ 6.5. Subsequently admitted to ICU for severe hyperkalemia requiring emergent hemodialysis. Upon ROS patient denies any headaches, blurry vision, chest pain, palpitations, shortness of breath, abdominal pain, urinary discomfort, focal weakness. PMH: CHF s/p ICD placement, CAD s/p PCI, CKD stage 4, hypertension, hypothyroidism, DM type 2, BPH, resident of [facility] PSH: ICD, PCI Allergies: NKDA Family Hx: Reviewed and noncontributory Social Hx: Denies tobacco, alcohol and illicit drug use PMD: Angel POA: Family Member Melissa; [phone]- Patient makes his own medical decisions and signs his own consent forms, per conversation with Melissa. Risks + Benefits of Dialysis Catheter + Dialysis were explained to patient; Patient verbalized understanding; consent signed POA - Melissa - was called and notified of plans for HD moving forward; Review of Systems - Review of Systems All systems: reviewed and no additional remarkable complaints except Review of Systems: As per HPI Past Patient History - Infectious Disease Hx of Infectious Diseases: None - Tetanus Immunizations Tetanus Immunization: Unknown - Past Medical History & Family History Past Medical History?: Yes - Past Social History Smoking Status: Never Smoked - CARDIAC Hx Cardiac Disorders: Yes (cardiac cath, coronary stent, pacemake w/ internal defibrillator) Other/Comment: CAD - PULMONARY Hx Respiratory Disorders: Yes Hx Chronic Obstructive Pulmonary Disease (COPD): Yes - NEUROLOGICAL Hx Neurological Disorder: Yes (MR) - HEENT Hx HEENT Problems: No - RENAL Hx Chronic Kidney Disease: Yes Hx Renal Failure: Yes - ENDOCRINE/METABOLIC Hx Endocrine Disorders: Yes Hx Diabetes Mellitus Type 1: Yes Hx Diabetes Mellitus Type 2: Yes Hx Hypothyroidism: Yes - HEMATOLOGICAL/ONCOLOGICAL Hx Blood Disorders: No - INTEGUMENTARY Hx Dermatological Problems: Yes - MUSCULOSKELETAL/RHEUMATOLOGICAL Hx Musculoskeletal Disorders: Yes Hx Falls: Yes - GASTROINTESTINAL Hx Gastrointestinal Disorders: No - GENITOURINARY/GYNECOLOGICAL Hx Genitourinary Disorders: No - PSYCHIATRIC Hx Psychophysiologic Disorder: Yes Hx Substance Use: No Other/Comment: Developmental delay. - SURGICAL HISTORY Hx Cardiac Catheterization: Yes Hx Coronary Stent: Yes Other/Comment: cardiac cath, pacemaker with internal defribilator - ANESTHESIA Hx Anesthesia: Yes Hx Anesthesia Reactions: No Hx Malignant Hyperthermia: No Meds Allergies/Adverse Reactions: Allergies Allergy/AdvReac Type Severity Reaction Status Date / Time No Known Allergies Allergy Verified 07/20/17 13:29 - Medications Medications: Current Medications Atorvastatin Calcium (Lipitor) 20 mg PO HS [facility] Calcitriol (Rocaltrol) 0.25 mcg PO DAILY [facility] Calcium Acetate (Phoslo) 667 mg PO TID [facility] Carvedilol (Coreg) 25 mg PO BID [facility] Furosemide (Lasix) 80 mg PO DAILY [facility] Sodium Bicarbonate 50 meq/ (Sodium Chloride) 1,050 mls @ 100 mls/hr IV .[id number] [facility] Last Admin: 12/07/17 12:35 Dose: 100 mls/hr Levothyroxine Sodium (Synthroid) 125 mcg PO DAILY [facility] Lisinopril (Zestril) 5 mg PO DAILY [facility] Sodium Bicarbonate (Sodium Bicarbonate Tab) 650 mg PO TID [facility] Tamsulosin HCl (Flomax) 0.4 mg PO DAILY [facility] Physical Exam - Constitutional Appears: Well, Non-toxic, No Acute Distress - Head Exam Head Exam: ATRAUMATIC, NORMOCEPHALIC - Eye Exam Eye Exam: EOMI, PERRL. absent: Scleral icterus - ENT Exam ENT Exam: Mucous Membranes Moist - Respiratory Exam Respiratory Exam: Clear to Auscultation Bilateral, NORMAL BREATHING PATTERN - Cardiovascular Exam Cardiovascular Exam: RRR, +S1, +S2. absent: Systolic Murmur - GI/Abdominal Exam GI & Abdominal Exam: Diminished Bowel Sounds, Distended, Soft. absent: Tenderness Additional comments: Hypoactive bowel sounds; Abdomen distended; Tympanic Negative [place] sign; No abdominal tenderness - Extremities Exam Additional comments: Some diminished pulses in upper extremities w/ delayed cap refill LE Pulses 1+ BL LE TP/DP Chronic venostatic changes appreciated in BL LE - Neurological Exam Neurological exam: Alert, Oriented x3 Additional comments: Upper extremity gross strength 5/5 BL Lower extremity gross strength 5/5 BL - Psychiatric Exam Psychiatric exam: Normal Affect, Normal Mood - Skin Skin Exam: Dry, Intact, Normal Color, Warm Results - Vital Signs Recent Vital Signs: Last Vital Signs Temp 97.6 F 12/07/17 08:12 Pulse 148 H 12/07/17 13:09 Resp 15 12/07/17 13:09 BP 121/86 12/07/17 12:41 Pulse Ox 96 12/07/17 13:09 - Labs Result Diagrams: 12/07/17 09:20 12/07/17 13:15 Labs: Laboratory Results - last 24 hr 12/07/17 13:15 Sodium 138 Potassium 5.6 H* Chloride 106 Carbon Dioxide 17 L Anion Gap 22 H BUN 117 H Creatinine 6.4 H Est GFR ( Amer) 11 Est GFR (Non-Af Amer) 9 Random Glucose 120 H Calcium 10.0 Assessment & Plan - Assessment and Plan (Free Text) Assessment: 62M PMH of DM2, Developmental Delay, Hypothyroidism, CAD s/p PCI, CHF Last known EF 34% (07/2016), Stage IV CKD (Baseline Cr 5.7-6.0; -07/2017), BPH, ; Presented to [facility] on 12/07 w/ CC of N/V and Diarrhea x2 days. Subsequently admitted for severe hyperkalemia (7.0), and renal failure BUN/Cr (119/6.5) requiring emergent hemodialysis. Neuro: Hx Developmental Delay AAO3 on exam No FND appreciated on exam Patient has POA however can make his own medical decisions and sign consent Reorient patient as needed Cardio: Hx CAD; CHF EF 34% (08/04) Currently does not appear to be volume overloaded Restrict IVF; Avoid volume overload Hold lasix Hold ACEi C/w home coreg Resume ASA post dialysis catheter insertion C/w Lipitor Monitor pressures Maintain MAP >65 Strict IO Pulm: No respiratory distress Maintain O2 sat >95% Supplemental O2 PRN GI: N/V/Diarrhea - Gastroenteritis vs ? CTAP - No evdience of colitis, diverticulitis, appendicitis; + for fat containing umbilical hernia NPO for now LFTs wnl; Continue monitoring Hepatitis panel pending CDiff pending; Fecal Leukocyte pending GI consulted, appreciate reccs Renal/ : Hyperkalemia, Hyperphosphatemia + Renal Failure: BUN/Cr - 119/6.5 on adm; Patient scheduled for Dialysis Catheter placement and Emergent HD today Will admin kayexalate Albuterol PRN - K+ management (Monitor heart rate) Amp D50 + Insulin 10u IVP - K+ management (Monitor sugars) Monitor K, Phos, Mag Will get BMP Q4 if patient does not received dialysis; monitor lytes, replete as needed Start Phoslo Start Calcitriol Hx BPH - FloMax Avoid nephrotoxic agents Nephro Following, appreciate reccs Endo: Hypothyroidism - C/w synthroid DM -Accucheck Q6 + ISS Medium; A1C pending ID: Afebrile; mild leukocytosis CTAP - no signs of intrabd infection Blood Cx UCx GI PPX: Pepcid DVT PPX: Heparin 5000 Q12 Patient seen examined and discussed w/ attending Dr. Luigi Snider DO PGY1 Internal Medicine Public Relations - Date & Time Date: 12/07/17 Time: 16:54 <Chuck Meyers - Last Filed: 12/07/17 17:06> Meds - Medications Medications: Current Medications Atorvastatin Calcium (Lipitor) 20 mg PO HS [facility] Calcitriol (Rocaltrol) 0.25 mcg PO DAILY [facility] Calcium Acetate (Phoslo) 667 mg PO TID [facility] Carvedilol (Coreg) 25 mg PO BID [facility] Sodium Bicarbonate 50 meq/ (Sodium Chloride) 1,050 mls @ 100 mls/hr IV .[id number] [facility] Last Admin: 12/07/17 12:35 Dose: 100 mls/hr Insulin Human Regular (Humulin R Med) 0 units SC Q6H [facility] PRN Reason: Protocol Levothyroxine Sodium (Synthroid) 125 mcg PO DAILY [facility] Ondansetron HCl (Zofran Inj) 4 mg IVP Q6H PRN PRN Reason: Nausea/Vomiting Sodium Bicarbonate (Sodium Bicarbonate Tab) 650 mg PO TID [facility] Tamsulosin HCl (Flomax) 0.4 mg PO DAILY [facility] Results - Vital Signs Recent Vital Signs: Last Vital Signs Temp 97.6 F 12/07/17 08:12 Pulse 148 H 12/07/17 13:09 Resp 15 12/07/17 13:09 BP 121/86 12/07/17 12:41 Pulse Ox 96 12/07/17 13:09 - Labs Result Diagrams: 12/07/17 09:20 12/07/17 13:15 Labs: Laboratory Results - last 24 hr 12/07/17 13:15 Sodium 138 Potassium 5.6 H* Chloride 106 Carbon Dioxide 17 L Anion Gap 22 H BUN 117 H Creatinine 6.4 H Est GFR ( Amer) 11 Est GFR (Non-Af Amer) 9 Random Glucose 120 H Calcium 10.0 Addendum Addendum: 12/07/17 17:06 ICU Attending Addendum: Patient seen and examined. Case reviewed on round with housestaff. Agree with resident note above with the following additions/exceptions: 62M hx of DM2, CAD s/p PCI, CHF Last known EF 34% (07/2016), Stage IV CKD, Developmental Delay, Hypothyroidism presents with N/V and Diarrhea x2 days. found to have hyperkalemia (7.0) Has been followed outpatient with plan for eventual HD but has never received it thus far HyperK likely from renal failure worsening (also on ACEI at home) No EKG changes initially tx with insulin/gluc albuterol domi lopes notified HD catheter via IR HD today f/u chem post HD including K, Phos, Mag no signs of infection at this time f/u cultures Chuck Meyers MD [employer] C[employer] Care TIme: 31 mins
[2017-12-07] MEDS ORDERED: Lidocaine PF 2% (5 ml) Inj (For Cardiac Arrhy) ONE ×3 (15:25→15:27)
[2017-12-07] MEDS ORDERED: Midazolam 2 MG/2 ML VIAL ONE ×2 (15:30→16:07)
[2017-12-07] MEDS ORDERED: Sod Polystyrene Sulf 15 gm/60 ml Susp PO ONE (15:31)
--- NOTE | 2017-12-07 15:56 | CON ---
DATE: 12/07/2017 REASON FOR CONSULTATION: Severe hyperkalemia, advanced chronic kidney disease, acidosis, vomiting, diarrhea. HISTORY OF PRESENTING ILLNESS: A 62-year-old male, known to me from prior evaluations, last seen in 06/2017. The patient has a history of mental retardation. He lives in a home for mentally disabled. He was sent in with complaints of nausea, vomiting for 1 day, diarrhea for 1 day. In the emergency room, he was found to be somewhat hypotensive, blood pressure was 98/60. He was found to be afebrile. His blood work revealed a potassium of 7, BUN of 119 and a creatinine of 6.5. The patient has a history of advanced chronic kidney disease stage 4/5. He has a history of dilated cardiomyopathy, recurrent episodes of decompensated congestive heart failure, history of hyperkalemia in the past. As per his cousin, Melissa, who is a nurse, the patient was being evaluated for an AV access at the [facility]. Plan was to initiate dialysis. Currently, he is sitting in bed in the ICU. He appears comfortable. Does not appear to be in any kind of respiratory distress at this time. He denies any chest pain. He denies any shortness of breath. He complains of some epigastric pain. He denies any urinary complaints. PAST MEDICAL AND SURGICAL HISTORY: Chronic kidney disease stage 4/5, NIDDM, hypertension, CAD, CHF, dilated cardiomyopathy, decreased ejection fraction, AICD, PTCA and stents x2, anemia of chronic kidney disease, secondary hyperparathyroidism, hypothyroidism, developmental disability. FAMILY HISTORY: Not available. SOCIAL HISTORY: No smoking, no alcohol use, no IV drug abuse. ALLERGIES: NO KNOWN DRUG ALLERGIES. MEDICATIONS: Lipitor, metformin??, PhosLo, insulin, calcitriol, sodium bicarbonate, Lasix, Uloric, Coreg, Flomax, Protonix, Synthroid, aspirin, Vasotec, Plavix. REVIEW OF SYSTEMS: All systems are reviewed. Pertinent positives as mentioned in the history of presenting illness, rest unremarkable. PHYSICAL EXAMINATION: GENERAL: Obese elderly male, lying in bed in the ICU. VITAL SIGNS: Blood pressure 121/86, heart rate 93, respiratory rate 18, temperature 98.6. HEENT: Normocephalic, atraumatic, positive pallor. NECK: Supple, no JVD. LUNGS: Bilateral equal air entry, bilateral equal expansion, no rales appreciated anteriorly, distant breath sounds. CARDIAC: S1 and S2, regular rate and rhythm, positive murmur, no rub. ABDOMEN: Obese, distended, soft, nontender, bowel sounds present. EXTREMITIES: 1+ pitting edema of the lower extremities. INTAKE AND OUTPUT: Not charted. LABORATORY DATA: WBC 14, hemoglobin 15, hematocrit 45.8, platelets 347. Sodium 138, potassium 5.6, chloride 106, CO2 of 17, BUN 117, creatinine 6.4, glucose 120, calcium 10, phosphorus 10.3, albumin 4.3, globulin 4.2. CT of the abdomen and pelvis: Large fat-containing umbilical hernia. No other intra-abdominal findings. CURRENT MEDICATIONS: Coreg 25 b.i.d., Flomax 0.4, Lasix 80 p.o. daily, Lipitor 20, PhosLo 667 t.i.d., Rocaltrol 0.25, 50 mEq in half-normal saline at 100, sodium bicarbonate 650 p.o. t.i.d., Synthroid 125, lisinopril 5. The patient also received albuterol 2.5 mg, calcium gluconate one ampule, dextrose 50% one ampule, insulin 10 units, Kayexalate 15 g, sodium bicarbonate IV push 1 amp. ASSESSMENT: 1. Acute kidney injury superimposed on chronic kidney disease stage V. 2. Severe life-threatening hyperkalemia. 3. Severe metabolic acidosis. 4. Noninsulin-dependent diabetes mellitus. 5. Hypertension. 6. Coronary artery disease, dilated cardiomyopathy, decreased ejection fraction, automatic implantable cardioverter-defibrillator. 7. Severe hyperphosphatemia/secondary hyperparathyroidism. 8. No evidence of any anemia. 9. Mental disability. PLAN: 1. Case discussed at length with cousin, Melissa, who is a nurse. In light of his severe hyperkalemia and advanced chronic kidney disease, we will plan to initiate a renal replacement therapy JULIETA. We will request Dr. Merlin Nagy to put in a PermCath because the patient will need chronic dialysis. 2. Initiate renal replacement therapy as soon as catheter is available. 3. Check intact PTH levels. 4. Continue phosphate binders. 5. Will likely need active vitamin D. 6. Monitor fingersticks and cover with insulin. 7. Check hemoglobin A1c. 8. Transitions Rn Care Coordinator evaluation for outpatient hemodialysis. 9. Vascular Surgery evaluation for permanent access. 10. Case discussed at length with ICU residents; family member, Melissa; ICU nursing staff; dialysis staff. 11. Case discussed with Dr. Merlin Nagy. 12. More than 35 minutes was spent in the care of this critically ill patient. Kaity Helms MD
[2017-12-07] MEDS: Insulin Reg-MEDIUM-Coverage SC SCH ×2 (17:14→22:10)
[2017-12-07] MEDS ORDERED: Dextrose 50% SYRINGE Inj (50 ml) IVP ONE (17:14)
--- NOTE | 2017-12-07 17:50 | CP.PCM.CON ---
<Michael Curtis - Last Filed: 12/07/17 18:03> History of Present Illness - History of Present Illness History of Present Illness: GI Consult Note for Dr. Levy's Service - Danilo PGY2 Reason for Consult: Nausea/Vomiting/Diarrhea Mr. Reece is a 62 year old male with a past medical history significant for developmental delay, CHF s/p ICD placement, CAD s/p PCI, CKD stage 4, HTN, hypothyroidism, DM2, and BPH who presents with two days of nausea, NBNB vomiting , and diarrhea. Patient has a known history of developmental delay but is currently alert and oriented to person, place and time. He reports that two days ago he began to experience nausea with three episodes of associated NBNB vomiting and "multiple" episodes of nonbloody watery diarrhea. Patient reports that these started without obvious cause. He reports having experienced this in the past. He presents from a [facility] and the driver manager of said [facility] confirms patients story through chart review. At the [facility], he was given an unknown pill to help with the N/V and that this provided moderate relief. His last episode of N/V and diarrhea occurred at approximately 0700 today and he denies having any further episodes. He currently denies any symptoms including recent illness, recent travel, sick contacts, weight loss, night sweats, fevers, chills, headache, lightheadedness, changes in vision, SOB, abdominal pain, N/V/D/C, melena, hematemesis, changes in urine output, skin changes or any numbness/tingling/weakness of any extremity. Of note, a CT abdomen/pelvis done in the ED showed a fat containing umbilical hernia. Patient was also found to have hyperkalemia of 7.0 and required emergent HD. PMH: As stated above PSH: PCI, ICD Family History: Reviewed and noncontributory Social History: Denies any tobacco, alcohol or illicit drug use Allergies: NKDA Home Medications: As per [facility] PMD: Dr. Angel AGUILAR: Family Member Melissa; [phone]-Patient makes his own medical decisions and signs his own consent forms, per conversation with Melissa Review of Systems - Review of Systems Review of Systems: As stated in HPI, otherwise negative Past Patient History - Infectious Disease Hx of Infectious Diseases: None - Tetanus Immunizations Tetanus Immunization: Unknown - Past Medical History & Family History Past Medical History?: Yes - Past Social History Smoking Status: Never Smoked - CARDIAC Hx Cardiac Disorders: Yes (cardiac cath, coronary stent, pacemake w/ internal defibrillator) Other/Comment: CAD - PULMONARY Hx Respiratory Disorders: Yes Hx Chronic Obstructive Pulmonary Disease (COPD): Yes - NEUROLOGICAL Hx Neurological Disorder: Yes (MR) - HEENT Hx HEENT Problems: No - RENAL Hx Chronic Kidney Disease: Yes Hx Renal Failure: Yes - ENDOCRINE/METABOLIC Hx Endocrine Disorders: Yes Hx Diabetes Mellitus Type 1: Yes Hx Diabetes Mellitus Type 2: Yes Hx Hypothyroidism: Yes - HEMATOLOGICAL/ONCOLOGICAL Hx Blood Disorders: No - INTEGUMENTARY Hx Dermatological Problems: Yes - MUSCULOSKELETAL/RHEUMATOLOGICAL Hx Musculoskeletal Disorders: Yes Hx Falls: Yes - GASTROINTESTINAL Hx Gastrointestinal Disorders: No - GENITOURINARY/GYNECOLOGICAL Hx Genitourinary Disorders: No - PSYCHIATRIC Hx Psychophysiologic Disorder: Yes Hx Substance Use: No Other/Comment: Developmental delay. - SURGICAL HISTORY Hx Cardiac Catheterization: Yes Hx Coronary Stent: Yes Other/Comment: cardiac cath, pacemaker with internal defribilator - ANESTHESIA Hx Anesthesia: Yes Hx Anesthesia Reactions: No Hx Malignant Hyperthermia: No Meds Allergies/Adverse Reactions: Allergies Allergy/AdvReac Type Severity Reaction Status Date / Time No Known Allergies Allergy Verified 07/20/17 13:29 - Medications Medications: Current Medications Atorvastatin Calcium (Lipitor) 20 mg PO HS [facility] Calcitriol (Rocaltrol) 0.25 mcg PO DAILY [facility] Calcium Acetate (Phoslo) 667 mg PO AC [facility] Carvedilol (Coreg) 25 mg PO BID [facility] Last Admin: 12/07/17 17:25 Dose: Not Given Famotidine (Pepcid) 40 mg PO HS [facility] Heparin Sodium (Porcine) (Heparin) 5,000 units SC Q12 [facility] PRN Reason: Protocol Insulin Human Regular (Humulin R Med) 0 units SC Q6H [facility] PRN Reason: Protocol Last Admin: 12/07/17 17:14 Dose: Not Given Levothyroxine Sodium (Synthroid) 125 mcg PO DAILY [facility] Ondansetron HCl (Zofran Inj) 4 mg IVP Q6H PRN PRN Reason: Nausea/Vomiting Sodium Bicarbonate (Sodium Bicarbonate Tab) 650 mg PO TID [facility] Last Admin: 12/07/17 17:26 Dose: 650 mg Tamsulosin HCl (Flomax) 0.4 mg PO DAILY AL[facility]ON[facility] Physical Exam - Constitutional Appears: Non-toxic, No Acute Distress - Head Exam Head Exam: ATRAUMATIC, NORMOCEPHALIC - Eye Exam Eye Exam: EOMI - Neck Exam Neck exam: Positive for: Full Rom - Respiratory Exam Respiratory Exam: NORMAL BREATHING PATTERN. absent: Accessory Muscle Use, Respiratory Distress - Cardiovascular Exam Cardiovascular Exam: +S1, +S2 - GI/Abdominal Exam GI & Abdominal Exam: Distended (Minimal distention), Normal Bowel Sounds, Soft. absent: Bruit, Diminished Bowel Sounds, Firm, Guarding, Hernia, Hyperactive Bowel Sounds, Hypoactive Bowel Sounds, Mass, Organomegaly, Pulsatile Mass, Rebound, Rigid, Tenderness - Rectal Exam Rectal Exam: Deferred - Neurological Exam Neurological exam: Alert, Oriented x3 - Psychiatric Exam Psychiatric exam: Normal Affect, Normal Mood - Skin Skin Exam: Dry, Intact, Normal Color, Warm Results - Vital Signs Recent Vital Signs: Last Vital Signs Temp 97.6 F 12/07/17 08:12 Pulse 76 12/07/17 17:25 Resp 15 12/07/17 13:09 BP 124/79 12/07/17 17:25 Pulse Ox 96 12/07/17 13:09 - Labs Result Diagrams: 12/07/17 09:20 12/07/17 13:15 Labs: Laboratory Results - last 24 hr 12/07/17 13:15 Sodium 138 Potassium 5.6 H* Chloride 106 Carbon Dioxide 17 L Anion Gap 22 H BUN 117 H Creatinine 6.4 H Est GFR ( Amer) 11 Est GFR (Non-Af Amer) 9 Random Glucose 120 H Calcium 10.0 Assessment & Plan - Assessment and Plan (Free Text) Assessment: 62 year old male with a past medical history significant for developmental delay , CHF s/p ICD placement, CAD s/p PCI, CKD stage 4, HTN, hypothyroidism, DM2, and BPH who presents with two days of nausea, NBNB vomiting, and diarrhea. Of note, a CT abdomen/pelvis done in the ED showed a fat containing umbilical hernia. Patient was also found to have hyperkalemia of 7.0 and required emergent HD. Plan: -CT Abdomen/Pelvis showed fat containing umbilical hernia -Stool electrolytes, stool culture, C. Diff serology and fecal leukocytes pending -Electrolyte abnormalities noted -NPO Diet -Continue Pepcid HS -Continue Zofran PRN for N/V Patient seen and case discussed with attending, Dr. Levy. - Date & Time Date: 12/07/17 Time: 17:49 <Temo Levy V - Last Filed: 12/07/17 23:54> Meds - Medications Medications: Current Medications Atorvastatin Calcium (Lipitor) 20 mg PO HS [facility] Last Admin: 12/07/17 21:38 Dose: 20 mg Calcitriol (Rocaltrol) 0.25 mcg PO DAILY [facility] Calcium Acetate (Phoslo) 667 mg PO AC [facility] Carvedilol (Coreg) 25 mg PO BID [facility] Last Admin: 12/07/17 17:25 Dose: Not Given Famotidine (Pepcid) 40 mg PO HS [facility] Last Admin: 12/07/17 21:39 Dose: 40 mg Heparin Sodium (Porcine) (Heparin) 5,000 units SC Q12 [facility] PRN Reason: Protocol Last Admin: 12/07/17 22:10 Dose: Not Given Insulin Human Regular (Humulin R Med) 0 units SC Q6H [facility] PRN Reason: Protocol Last Admin: 12/07/17 22:10 Dose: Not Given Levothyroxine Sodium (Synthroid) 125 mcg PO DAILY [facility] Ondansetron HCl (Zofran Inj) 4 mg IVP Q6H PRN PRN Reason: Nausea/Vomiting Sodium Bicarbonate (Sodium Bicarbonate Tab) 650 mg PO TID [facility] Last Admin: 12/07/17 17:26 Dose: 650 mg Tamsulosin HCl (Flomax) 0.4 mg PO DAILY [facility] Results - Vital Signs Recent Vital Signs: Last Vital Signs Temp 97.9 F 12/07/17 17:55 Pulse 81 12/07/17 19:45 Resp 21 12/07/17 19:45 BP 119/78 12/07/17 19:45 Pulse Ox 93 L 12/07/17 19:45 - Labs Result Diagrams: 12/07/17 09:20 12/07/17 22:56 Labs: Laboratory Results - last 24 hr 12/07/17 12/07/17 12/07/17 13:15 17:13 18:04 Sodium 138 Potassium 5.6 H* Chloride 106 Carbon Dioxide 17 L Anion Gap 22 H BUN 117 H Creatinine 6.4 H Est GFR ( Amer) 11 Est GFR (Non-Af Amer) 9 POC Glucose (mg/dL) 51 L 158 H Random Glucose 120 H Calcium 10.0 12/07/17 12/07/17 12/07/17 22:01 22:04 22:56 Sodium 142 Potassium 4.6 Chloride 110 H Carbon Dioxide 20 L Anion Gap 17 BUN 101 H Creatinine 5.0 H Est GFR ( Amer) 14 Est GFR (Non-Af Amer) 12 POC Glucose (mg/dL) 59 L 59 L Random Glucose 98 Calcium 8.9 12/07/17 23:05 Sodium Potassium Chloride Carbon Dioxide Anion Gap BUN Creatinine Est GFR ( Amer) Est GFR (Non-Af Amer) POC Glucose (mg/dL) 104 Random Glucose Calcium Attending/Attestation - Attestation I have personally seen and examined this patient.: Yes I have fully participated in the care of the patient.: Yes I have reviewed all pertinent clinical information: Yes Notes (Text): This is an addendum to GI consult report dictated by the Extension Course Counselor.The patient was seen and evaluated earlier. Medical records, lab studies, imagings were reviewed. Last 24 hours events reviewed. Agreed with the above treatment plan as outlined in Extension Course Counselor 's notes with the addition of the following Patient was having HT for hyperkalemia Admitted with nausea and vomiting Patient has history of chronic diarrhea etiology unclear Would need colonoscopy and endoscopy once optimized Followup stool studies Request chromogranin A 12/07/17 23:48
--- NOTE | 2017-12-07 20:08 | VASCULAR ---
PROCEDURE: Ultrasound and fluoroscopic tunneled right IJ dialysis catheter. CLINICAL HISTORY: ESRD PHYSICIAN(S): Merlin Nagy M.D. TECHNIQUE: The relative risks and indications for the procedure were explained to the patient and informed written consent obtained. The patient was placed supine on the arteriography table and the right neck/chest was prepped and draped in the usual sterile fashion. 1% Xylocaine was used to anesthetize the skin and soft tissues at the puncture site. Conscious sedation and monitoring were provided throughout the procedure by a nurse. Under direct ultrasound guidance, the rightinternal jugular vein was punctured with a micropuncture set. A 0.035 Glidewire was advanced into the IVC. Sequential dilatation was performed with subsequent placement of a 28cm Nextgen catheter with its tip in the right atrium. A retrograde tunnel below the right clavicle was performed. The catheter was trimmed and the hub attached. Both ports aspirate and inject easily. The catheter was secured and a dressing applied. The patient tolerated the procedure well. IMPRESSION: 1. Ultrasound and fluoroscopically placed right IJ tunneled dialysis catheter.
--- NOTE | 2017-12-07 20:54 | CARD ---
APPROVED REPORT Date of service: 12/07/2017 EKG Measurement Heart [id number] <Conclusion> V. Paced, A. Sensed rhythm Abnormal ECG
[2017-12-07 23:09] LABS: CALCIUM 8.9 mg/dL (8.4-10.5)
[2017-12-08] MEDS: Insulin Reg-MEDIUM-Coverage SC SCH ×4 (04:54→22:21)
[2017-12-08 07:08] LABS: ALBUMIN 3.9 g/dL (3.0-4.8); BASO # 0.1 K/mm3 (0.0-2.0); BASO % 0.9 % (0.0-3.0); CALCIUM 9.5 mg/dL (8.4-10.5); EOS # 0.8 (0.0-0.7); EOS % 7.1 % (1.5-5.0); GRAN # 8.54 (1.4-6.5); GRAN % 73.6 % (50.0-68.0); HEMOGLOBIN 15.2 g/dL (14.0-18.0); LYMPH # 1.3 (1.2-3.4); LYMPH % 11.2 % (22.0-35.0); MEAN CORPUSCULAR HEMOGLOBIN 29.2 pg (25.0-35.0); MEAN CORPUSCULAR HGB CONC 32.5 g/dl (31.0-37.0); MEAN PLATELET VOLUME 10.7 fl (7.0-11.0); MONO # 0.8 (0.1-0.6); MONO % 7.2 % (1.0-6.0); RBC 5.2 10^6/uL (3.5-6.1); RED CELL DISTRIBUTION WIDTH 14.4 % (11.5-14.5); WHITE BLOOD COUNT 11.6 10^3/ul (4.5-11.0)
--- NOTE | 2017-12-08 07:26 | CP.CCUPN ---
<Jose Antonio Snider - Last Filed: 12/08/17 10:39> CCU Subjective - Physician Review Subjective (Free Text): 12/08/17 08:35 Overnight dialysis was not completed due to intermittent clotting of catheter; 1000u heparin bolus adm x2 Patient will be reattempted for dialysis this afternoon Reports of oozing from catheter site last night as well. No other complaints voiced this AM; Denies any chest pain, palpitations, sob, cough, dizziness Remainder of 12 system ROS otherwise negative CCU Objective - Vital Signs / Intake & Output Vital Signs (Last 4 hours): Vital Signs Pulse Resp BP Pulse Ox 12/08/17 07:00 77 125/75 95 12/08/17 06:00 77 113/75 95 12/08/17 05:00 77 18 138/91 H 97 12/08/17 04:00 73 22 121/79 96 12/08/17 03:55 72 Intake and Output (Last 8hrs): Intake & Output 12/07/17 12/08/17 12/08/17 22:59 06:59 14:59 Intake Total 600 1360 Output Total 525 1220 Balance 75 140 Intake: IV 600 1000 Left Antecubital 600 1000 Subclavian 0 Oral 360 Output: Urine 525 1220 Urine, Voided 525 1220 Stool 0 Emesis 0 Other: Voiding Method Urinal - Physical Exam Head: Positive for: Atraumatic, Normocephalic Extroacular Muscles: Positive for: EOMI Conjunctiva: Positive for: Normal Mouth: Positive for: Moist Mucous Membranes Nose (External): Positive for: Atraumatic Nose (Internal): Positive for: Normal Inspection, No Active Bleeding, Moist Neck: Positive for: Normal Range of Motion. Negative for: Meningeal Signs, MIDLINE TENDERNESS Respiratory/Chest: Positive for: Clear to Auscultation, Good Air Exchange. Negative for: Respiratory Distress, Accessory Muscle Use, Rales, Retracting, Rhonchi, Tachypneic Cardiovascular: Positive for: Regular Rate and Rhythm, Normal S1, S2. Negative for: Murmurs Abdomen: Positive for: Hernias (umbilical hernia - soft, reducible, mildly tender). Negative for: Distention, Peritoneal Signs, Rovsing's Sign Present Upper Extremity: Positive for: NORMAL PULSES. Negative for: Cyanosis, Edema Lower Extremity: Positive for: Normal Inspection, Other (chronic venous changes b/l; 1+ Pulses BL ). Negative for: Edema, CALF TENDERNESS, Tenderness, Swelling Neurological: Positive for: GCS=15, Speech Normal, Motor Func Grossly Intact Skin: Positive for: Warm, Dry, Normal Color, Other (chronic venous changes in lower extremity b/l). Negative for: Rashes Lymphatic: Negative for: Cervical Adenopathy Psychiatric: Positive for: Alert, Oriented x 3, Normal Insight, Normal Concentration - Medications Active Medications: Active Medications Generic Name Dose Route Start Last Admin Trade Name Freq PRN Reason Stop Dose Admin Atorvastatin Calcium 20 mg 12/07/17 22:00 12/07/17 21:38 Lipitor PO 20 mg HS ALFONSO Administration Calcitriol 0.25 mcg 12/08/17 10:00 Rocaltrol PO DAILY ALFONSO Calcium Acetate 667 mg 12/08/17 07:30 12/08/17 07:12 Phoslo PO 667 mg AC ALFONSO Administration Carvedilol 25 mg 12/07/17 18:00 12/07/17 17:25 Coreg PO Not Given BID ALFONSO Famotidine 40 mg 12/07/17 22:00 12/07/17 21:39 Pepcid PO 40 mg HS ALFONSO Administration Heparin Sodium (Porcine) 5,000 units 12/07/17 22:00 12/07/17 22:10 Heparin SC Not Given Q12 [facility] Protocol Insulin Human Regular 0 units 12/07/17 16:00 12/08/17 04:54 Humulin R Med SC Not Given Q6H [facility] Protocol Levothyroxine Sodium 125 mcg 12/08/17 10:00 Synthroid PO DAILY [facility] Ondansetron HCl 4 mg 12/07/17 16:14 Zofran Inj IVP Q6H PRN Nausea/Vomiting Sodium Bicarbonate 650 mg 12/07/17 14:00 12/07/17 17:26 Sodium Bicarbonate Tab PO 650 mg TID ALFONSO Administration Tamsulosin HCl 0.4 mg 12/08/17 10:00 Flomax PO DAILY ALFONSO - Patient Studies Lab Studies: Lab Studies 12/08/17 12/08/17 12/08/17 Range/Units 06:04 05:45 05:45 WBC 11.6 H (4.5-11.0) 10^3/ul RBC 5.20 (3.5-6.1) 10^6/uL Hgb 15.2 (14.0-18.0) g/dL Hct 46.8 (42.0-52.0) % MCV 90.0 (80.0-105.0) fl MCH 29.2 (25.0-35.0) pg MCHC 32.5 (31.0-37.0) g/dl RDW 14.4 (11.5-14.5) % Plt Count 293 (120.0-450.0) 10^3/uL MPV 10.7 (7.0-11.0) fl Gran % 73.6 H (50.0-68.0) % Lymph % (Auto) 11.2 L (22.0-35.0) % [place] % (Auto) 7.2 H (1.0-6.0) % Eos % (Auto) 7.1 H (1.5-5.0) % Baso % (Auto) 0.9 (0.0-3.0) % Gran # 8.54 H (1.4-6.5) Lymph # (Auto) 1.3 (1.2-3.4) [place] # (Auto) 0.8 H (0.1-0.6) Eos # (Auto) 0.8 H (0.0-0.7) Baso # (Auto) 0.10 (0.0-2.0) K/mm3 Sodium 145 (132-148) mmol/L Potassium 4.9 (3.6-5.0) mmol/L Chloride 111 H (98-107) mmol/L Carbon Dioxide 21 (21-33) mmol/L Anion Gap 17 (10-20) BUN 96 H (7-21) mg/dL Creatinine 4.9 H (0.8-1.5) mg/dl Est GFR ( Amer) 15 Est GFR (Non-Af Amer) 12 POC Glucose (mg/dL) 59 L (65-110) mg/dL Random Glucose 65 L (70-110) mg/dL Calcium 9.5 (8.4-10.5) mg/dL Phosphorus 7.9 H (2.5-4.5) mg/dL Magnesium 1.7 (1.7-2.2) mg/dL Total Bilirubin 0.5 (0.2-1.3) mg/dL AST 19 (17-59) U/L ALT 10 (7-56) U/L Alkaline Phosphatase 65 (38-126) U/L Total Protein 8.0 (5.8-8.3) g/dL Albumin 3.9 (3.0-4.8) g/dL Globulin 4.1 gm/dL Albumin/Globulin Ratio 1.0 L (1.1-1.8) 12/08/17 12/07/17 12/07/17 Range/Units 02:17 23:05 22:56 WBC (4.5-11.0) 10^3/ul RBC (3.5-6.1) 10^6/uL Hgb (14.0-18.0) g/dL Hct (42.0-52.0) % MCV (80.0-105.0) fl MCH (25.0-35.0) pg MCHC (31.0-37.0) g/dl RDW (11.5-14.5) % Plt Count (120.0-450.0) 10^3/uL MPV (7.0-11.0) fl Gran % (50.0-68.0) % Lymph % (Auto) (22.0-35.0) % [place] % (Auto) (1.0-6.0) % Eos % (Auto) (1.5-5.0) % Baso % (Auto) (0.0-3.0) % Gran # (1.4-6.5) Lymph # (Auto) (1.2-3.4) [place] # (Auto) (0.1-0.6) Eos # (Auto) (0.0-0.7) Baso # (Auto) (0.0-2.0) K/mm3 Sodium 142 (132-148) mmol/L Potassium 4.6 (3.6-5.0) mmol/L Chloride 110 H (98-107) mmol/L Carbon Dioxide 20 L (21-33) mmol/L Anion Gap 17 (10-20) BUN 101 H (7-21) mg/dL Creatinine 5.0 H (0.8-1.5) mg/dl Est GFR ( Amer) 14 Est GFR (Non-Af Amer) 12 POC Glucose (mg/dL) 96 104 (65-110) mg/dL Random Glucose 98 (70-110) mg/dL Calcium 8.9 (8.4-10.5) mg/dL Phosphorus (2.5-4.5) mg/dL Magnesium (1.7-2.2) mg/dL Total Bilirubin (0.2-1.3) mg/dL AST (17-59) U/L ALT (7-56) U/L Alkaline Phosphatase (38-126) U/L Total Protein (5.8-8.3) g/dL Albumin (3.0-4.8) g/dL Globulin gm/dL Albumin/Globulin Ratio (1.1-1.8) 12/07/17 12/07/17 12/07/17 Range/Units 22:04 22:01 18:04 WBC (4.5-11.0) 10^3/ul RBC (3.5-6.1) 10^6/uL Hgb (14.0-18.0) g/dL Hct (42.0-52.0) % MCV (80.0-105.0) fl MCH (25.0-35.0) pg MCHC (31.0-37.0) g/dl RDW (11.5-14.5) % Plt Count (120.0-450.0) 10^3/uL MPV (7.0-11.0) fl Gran % (50.0-68.0) % Lymph % (Auto) (22.0-35.0) % [place] % (Auto) (1.0-6.0) % Eos % (Auto) (1.5-5.0) % Baso % (Auto) (0.0-3.0) % Gran # (1.4-6.5) Lymph # (Auto) (1.2-3.4) [place] # (Auto) (0.1-0.6) Eos # (Auto) (0.0-0.7) Baso # (Auto) (0.0-2.0) K/mm3 Sodium (132-148) mmol/L Potassium (3.6-5.0) mmol/L Chloride (98-107) mmol/L Carbon Dioxide (21-33) mmol/L Anion Gap (10-20) BUN (7-21) mg/dL Creatinine (0.8-1.5) mg/dl Est GFR ( Amer) Est GFR (Non-Af Amer) POC Glucose (mg/dL) 59 L 59 L 158 H (65-110) mg/dL Random Glucose (70-110) mg/dL Calcium (8.4-10.5) mg/dL Phosphorus (2.5-4.5) mg/dL Magnesium (1.7-2.2) mg/dL Total Bilirubin (0.2-1.3) mg/dL AST (17-59) U/L ALT (7-56) U/L Alkaline Phosphatase (38-126) U/L Total Protein (5.8-8.3) g/dL Albumin (3.0-4.8) g/dL Globulin gm/dL Albumin/Globulin Ratio (1.1-1.8) 12/07/17 12/07/17 Range/Units 17:13 13:15 WBC (4.5-11.0) 10^3/ul RBC (3.5-6.1) 10^6/uL Hgb (14.0-18.0) g/dL Hct (42.0-52.0) % MCV (80.0-105.0) fl MCH (25.0-35.0) pg MCHC (31.0-37.0) g/dl RDW (11.5-14.5) % Plt Count (120.0-450.0) 10^3/uL MPV (7.0-11.0) fl Gran % (50.0-68.0) % Lymph % (Auto) (22.0-35.0) % [place] % (Auto) (1.0-6.0) % Eos % (Auto) (1.5-5.0) % Baso % (Auto) (0.0-3.0) % Gran # (1.4-6.5) Lymph # (Auto) (1.2-3.4) [place] # (Auto) (0.1-0.6) Eos # (Auto) (0.0-0.7) Baso # (Auto) (0.0-2.0) K/mm3 Sodium 138 (132-148) mmol/L Potassium 5.6 H* (3.6-5.0) mmol/L Chloride 106 (98-107) mmol/L Carbon Dioxide 17 L (21-33) mmol/L Anion Gap 22 H (10-20) BUN 117 H (7-21) mg/dL Creatinine 6.4 H (0.8-1.5) mg/dl Est GFR ( Amer) 11 Est GFR (Non-Af Amer) 9 POC Glucose (mg/dL) 51 L (65-110) mg/dL Random Glucose 120 H (70-110) mg/dL Calcium 10.0 (8.4-10.5) mg/dL Phosphorus (2.5-4.5) mg/dL Magnesium (1.7-2.2) mg/dL Total Bilirubin (0.2-1.3) mg/dL AST (17-59) U/L ALT (7-56) U/L Alkaline Phosphatase (38-126) U/L Total Protein (5.8-8.3) g/dL Albumin (3.0-4.8) g/dL Globulin gm/dL Albumin/Globulin Ratio (1.1-1.8) Laboratory Results - last 24 hr 12/07/17 12/07/17 12/07/17 13:15 17:13 18:04 WBC RBC Hgb Hct MCV MCH MCHC RDW Plt Count MPV Gran % Lymph % (Auto) [place] % (Auto) Eos % (Auto) Baso % (Auto) Gran # Lymph # (Auto) [place] # (Auto) Eos # (Auto) Baso # (Auto) Sodium 138 Potassium 5.6 H* Chloride 106 Carbon Dioxide 17 L Anion Gap 22 H BUN 117 H Creatinine 6.4 H Est GFR ( Amer) 11 Est GFR (Non-Af Amer) 9 POC Glucose (mg/dL) 51 L 158 H Random Glucose 120 H Calcium 10.0 Phosphorus Magnesium Total Bilirubin AST ALT Alkaline Phosphatase Total Protein Albumin Globulin Albumin/Globulin Ratio 12/07/17 12/07/17 12/07/17 22:01 22:04 22:56 WBC RBC Hgb Hct MCV MCH MCHC RDW Plt Count MPV Gran % Lymph % (Auto) [place] % (Auto) Eos % (Auto) Baso % (Auto) Gran # Lymph # (Auto) [place] # (Auto) Eos # (Auto) Baso # (Auto) Sodium 142 Potassium 4.6 Chloride 110 H Carbon Dioxide 20 L Anion Gap 17 BUN 101 H Creatinine 5.0 H Est GFR ( Amer) 14 Est GFR (Non-Af Amer) 12 POC Glucose (mg/dL) 59 L 59 L Random Glucose 98 Calcium 8.9 Phosphorus Magnesium Total Bilirubin AST ALT Alkaline Phosphatase Total Protein Albumin Globulin Albumin/Globulin Ratio 12/07/17 12/08/17 12/08/17 23:05 02:17 05:45 WBC 11.6 H RBC 5.20 Hgb 15.2 Hct 46.8 MCV 90.0 MCH 29.2 MCHC 32.5 RDW 14.4 Plt Count 293 MPV 10.7 Gran % 73.6 H Lymph % (Auto) 11.2 L [place] % (Auto) 7.2 H Eos % (Auto) 7.1 H Baso % (Auto) 0.9 Gran # 8.54 H Lymph # (Auto) 1.3 [place] # (Auto) 0.8 H Eos # (Auto) 0.8 H Baso # (Auto) 0.10 Sodium Potassium Chloride Carbon Dioxide Anion Gap BUN Creatinine Est GFR ( Amer) Est GFR (Non-Af Amer) POC Glucose (mg/dL) 104 96 Random Glucose Calcium Phosphorus Magnesium Total Bilirubin AST ALT Alkaline Phosphatase Total Protein Albumin Globulin Albumin/Globulin Ratio 12/08/17 12/08/17 05:45 06:04 WBC RBC Hgb Hct MCV MCH MCHC RDW Plt Count MPV Gran % Lymph % (Auto) [place] % (Auto) Eos % (Auto) Baso % (Auto) Gran # Lymph # (Auto) [place] # (Auto) Eos # (Auto) Baso # (Auto) Sodium 145 Potassium 4.9 Chloride 111 H Carbon Dioxide 21 Anion Gap 17 BUN 96 H Creatinine 4.9 H Est GFR ( Amer) 15 Est GFR (Non-Af Amer) 12 POC Glucose (mg/dL) 59 L Random Glucose 65 L Calcium 9.5 Phosphorus 7.9 H Magnesium 1.7 Total Bilirubin 0.5 AST 19 ALT 10 Alkaline Phosphatase 65 Total Protein 8.0 Albumin 3.9 Globulin 4.1 Albumin/Globulin Ratio 1.0 L Fingerstick Blood Sugar Results: 96 Review of Systems - Review of Systems All systems: reviewed and no additional remarkable complaints except Review of Systems: as per [facility] Critical Care Progress Note - Nutrition Nutrition: Nutrition Category Date Time Status Renal Diet [DIET] Diets 12/08/17 Breakfast Ordered Assessment/Plan - Assessment and Plan (Free Text) Assessment: 62M PMH of DM2, Developmental Delay, Hypothyroidism, CAD s/p PCI, CHF Last known EF 34% (07/2016), Stage IV CKD (Baseline Cr 5.7-6.0; 04-07/2017), BPH, ; Presented to [facility] ED on 12/07 w/ CC of N/V and Diarrhea x2 days. Subsequently admitted for severe hyperkalemia (7.0), and renal failure BUN/Cr (119/6.5) requiring emergent hemodialysis. Neuro: Hx Developmental Delay AAO3 on exam No FND appreciated on exam Patient has POA however can make his own medical decisions and sign consent Reorient patient as needed Cardio: Hx CAD; CHF EF 34% (08/04) Currently does not appear to be volume overloaded Restrict IVF; Avoid volume overload Hold lasix Hold ACEi C/w home coreg Some oozing from dialysis catheter site last night; will resume ASA once stable C/w Lipitor Holding PPX heparin SC at this time Monitor pressures Maintain MAP >65 Strict IO Pulm: No respiratory distress Maintain O2 sat >95% Supplemental O2 PRN GI: N/V/Diarrhea - Gastroenteritis vs Electrolyte abnormalities CTAP - No evdience of colitis, diverticulitis, appendicitis; + for fat containing umbilical hernia LFTs wnl; Continue monitoring Hepatitis panel pending CDiff pending; Fecal Leukocyte pending; Stool electrolytes pending; Diet resumed this AM - patient tolerating well; no GI complaints Continue Pepcid HS Continue Zofran PRN for N/V EGD + Colonoscopy once stable GI following, appreciate reccs Renal/ : Hyperkalemia, Hyperphosphatemia + Renal Failure: BUN/Cr - 119/6.5 on adm; 96/4.9 this AM Receieved HD yesterday K+, Ca, Mag wnl C/w Calcitriol Phos elevated 7.9 C/w phoslo AC Monitor K, Phos, Mag Hx BPH - FloMax Avoid nephrotoxic agents Nephro Following, appreciate reccs Endo: Hypothyroidism - C/w synthroid DM -Accucheck Q6 + ISS Medium; A1C pending ID: Afebrile; mild leukocytosis CTAP - no signs of intra abd infection Blood Cx pending UCx pending GI PPX: Pepcid DVT PPX: HOLD Heparin 5000 Q12 Patient seen examined and discussed w/ attending Dr. Reza Snider DO PGY1 Internal Medicine Group Controller - Date & Time Date: 12/08/17 Time: 10:49 <Arcenio Cobb - Last Filed: 12/08/17 14:26> CCU Objective - Vital Signs / Intake & Output Vital Signs (Last 4 hours): Vital Signs Pulse BP 12/08/17 10:44 78 117/78 Intake and Output (Last 8hrs): Intake & Output 12/07/17 12/08/17 12/08/17 22:59 06:59 14:59 Intake Total 600 1360 Output Total 525 1220 Balance 75 140 Intake: IV 600 1000 Left Antecubital 600 1000 Subclavian 0 Oral 360 Output: Urine 525 1220 Urine, Voided 525 1220 Stool 0 Emesis 0 Other: Voiding Method Urinal - Medications Active Medications: Active Medications Generic Name Dose Route Start Last Admin Trade Name Freq PRN Reason Stop Dose Admin Atorvastatin Calcium 20 mg 12/07/17 22:00 12/07/17 21:38 Lipitor PO 20 mg HS ALFONSO Administration Calcitriol 0.25 mcg 12/08/17 10:00 12/08/17 10:46 Rocaltrol PO 0.25 mcg DAILY ALFONSO Administration Calcium Acetate 667 mg 12/08/17 07:30 12/08/17 07:12 Phoslo PO 667 mg AC ALFONSO Administration Carvedilol 25 mg 12/07/17 18:00 12/08/17 10:44 Coreg PO 25 mg BID ALFONSO Administration Famotidine 40 mg 12/07/17 22:00 12/07/17 21:39 Pepcid PO 40 mg HS ALFONSO Administration Heparin Sodium (Porcine) 5,000 units 12/07/17 22:00 12/07/17 22:10 Heparin SC Not Given Q12 [facility] Protocol Heparin Sodium (Porcine) 2,000 units 12/08/17 15:00 Heparin IV 12/08/17 15:01 ONCE ONE Insulin Human Regular 0 units 12/07/17 16:00 12/08/17 10:45 Humulin R Med SC Not Given Q6H [facility] Protocol Levothyroxine Sodium 125 mcg 12/08/17 10:00 09/20/18 10:50 Synthroid PO 125 mcg DAILY ALFONSO Administration Ondansetron HCl 4 mg 12/07/17 16:14 Zofran Inj IVP Q6H PRN Nausea/Vomiting Sodium Bicarbonate 650 mg 12/07/17 14:00 12/08/17 10:52 Sodium Bicarbonate Tab PO 650 mg TID ALFONSO Administration Tamsulosin HCl 0.4 mg 12/08/17 10:00 12/08/17 10:44 Flomax PO 0.4 mg DAILY ALFONSO Administration - Patient Studies Lab Studies: Lab Studies 12/08/17 12/08/17 12/08/17 Range/Units 11:18 07:52 07:48 WBC (4.5-11.0) 10^3/ul RBC (3.5-6.1) 10^6/uL Hgb (14.0-18.0) g/dL Hct (42.0-52.0) % MCV (80.0-105.0) fl MCH (25.0-35.0) pg MCHC (31.0-37.0) g/dl RDW (11.5-14.5) % Plt Count (120.0-450.0) 10^3/uL MPV (7.0-11.0) fl Gran % (50.0-68.0) % Lymph % (Auto) (22.0-35.0) % [place] % (Auto) (1.0-6.0) % Eos % (Auto) (1.5-5.0) % Baso % (Auto) (0.0-3.0) % Gran # (1.4-6.5) Lymph # (Auto) (1.2-3.4) [place] # (Auto) (0.1-0.6) Eos # (Auto) (0.0-0.7) Baso # (Auto) (0.0-2.0) K/mm3 Sodium (132-148) mmol/L Potassium (3.6-5.0) mmol/L Chloride (98-107) mmol/L Carbon Dioxide (21-33) mmol/L Anion Gap (10-20) BUN (7-21) mg/dL Creatinine (0.8-1.5) mg/dl Est GFR ( Amer) Est GFR (Non-Af Amer) POC Glucose (mg/dL) 159 H 109 97 (65-110) mg/dL Random Glucose (70-110) mg/dL Calcium (8.4-10.5) mg/dL Phosphorus (2.5-4.5) mg/dL Magnesium (1.7-2.2) mg/dL Total Bilirubin (0.2-1.3) mg/dL AST (17-59) U/L ALT (7-56) U/L Alkaline Phosphatase (38-126) U/L Total Protein (5.8-8.3) g/dL Albumin (3.0-4.8) g/dL Globulin gm/dL Albumin/Globulin Ratio (1.1-1.8) Hep Bs Antigen (NEGATIVE) Hep B Core IgM Ab (NEGATIVE) 12/08/17 12/08/17 12/08/17 Range/Units 06:04 05:45 05:45 WBC 11.6 H (4.5-11.0) 10^3/ul RBC 5.20 (3.5-6.1) 10^6/uL Hgb 15.2 (14.0-18.0) g/dL Hct 46.8 (42.0-52.0) % MCV 90.0 (80.0-105.0) fl MCH 29.2 (25.0-35.0) pg MCHC 32.5 (31.0-37.0) g/dl RDW 14.4 (11.5-14.5) % Plt Count 293 (120.0-450.0) 10^3/uL MPV 10.7 (7.0-11.0) fl Gran % 73.6 H (50.0-68.0) % Lymph % (Auto) 11.2 L (22.0-35.0) % [place] % (Auto) 7.2 H (1.0-6.0) % Eos % (Auto) 7.1 H (1.5-5.0) % Baso % (Auto) 0.9 (0.0-3.0) % Gran # 8.54 H (1.4-6.5) Lymph # (Auto) 1.3 (1.2-3.4) [place] # (Auto) 0.8 H (0.1-0.6) Eos # (Auto) 0.8 H (0.0-0.7) Baso # (Auto) 0.10 (0.0-2.0) K/mm3 Sodium 145 (132-148) mmol/L Potassium 4.9 (3.6-5.0) mmol/L Chloride 111 H (98-107) mmol/L Carbon Dioxide 21 (21-33) mmol/L Anion Gap 17 (10-20) BUN 96 H (7-21) mg/dL Creatinine 4.9 H (0.8-1.5) mg/dl Est GFR ( Amer) 15 Est GFR (Non-Af Amer) 12 POC Glucose (mg/dL) 59 L (65-110) mg/dL Random Glucose 65 L (70-110) mg/dL Calcium 9.5 (8.4-10.5) mg/dL Phosphorus 7.9 H (2.5-4.5) mg/dL Magnesium 1.7 (1.7-2.2) mg/dL Total Bilirubin 0.5 (0.2-1.3) mg/dL AST 19 (17-59) U/L ALT 10 (7-56) U/L Alkaline Phosphatase 65 (38-126) U/L Total Protein 8.0 (5.8-8.3) g/dL Albumin 3.9 (3.0-4.8) g/dL Globulin 4.1 gm/dL Albumin/Globulin Ratio 1.0 L (1.1-1.8) Hep Bs Antigen (NEGATIVE) Hep B Core IgM Ab (NEGATIVE) 12/08/17 12/07/17 12/07/17 Range/Units 02:17 23:05 22:56 WBC (4.5-11.0) 10^3/ul RBC (3.5-6.1) 10^6/uL Hgb (14.0-18.0) g/dL Hct (42.0-52.0) % MCV (80.0-105.0) fl MCH (25.0-35.0) pg MCHC (31.0-37.0) g/dl RDW (11.5-14.5) % Plt Count (120.0-450.0) 10^3/uL MPV (7.0-11.0) fl Gran % (50.0-68.0) % Lymph % (Auto) (22.0-35.0) % [place] % (Auto) (1.0-6.0) % Eos % (Auto) (1.5-5.0) % Baso % (Auto) (0.0-3.0) % Gran # (1.4-6.5) Lymph # (Auto) (1.2-3.4) [place] # (Auto) (0.1-0.6) Eos # (Auto) (0.0-0.7) Baso # (Auto) (0.0-2.0) K/mm3 Sodium 142 (132-148) mmol/L Potassium 4.6 (3.6-5.0) mmol/L Chloride 110 H (98-107) mmol/L Carbon Dioxide 20 L (21-33) mmol/L Anion Gap 17 (10-20) BUN 101 H (7-21) mg/dL Creatinine 5.0 H (0.8-1.5) mg/dl Est GFR ( Amer) 14 Est GFR (Non-Af Amer) 12 POC Glucose (mg/dL) 96 104 (65-110) mg/dL Random Glucose 98 (70-110) mg/dL Calcium 8.9 (8.4-10.5) mg/dL Phosphorus (2.5-4.5) mg/dL Magnesium (1.7-2.2) mg/dL Total Bilirubin (0.2-1.3) mg/dL AST (17-59) U/L ALT (7-56) U/L Alkaline Phosphatase (38-126) U/L Total Protein (5.8-8.3) g/dL Albumin (3.0-4.8) g/dL Globulin gm/dL Albumin/Globulin Ratio (1.1-1.8) Hep Bs Antigen (NEGATIVE) Hep B Core IgM Ab (NEGATIVE) 12/07/17 12/07/17 12/07/17 Range/Units 22:56 22:04 22:01 WBC (4.5-11.0) 10^3/ul RBC (3.5-6.1) 10^6/uL Hgb (14.0-18.0) g/dL Hct (42.0-52.0) % MCV (80.0-105.0) fl MCH (25.0-35.0) pg MCHC (31.0-37.0) g/dl RDW (11.5-14.5) % Plt Count (120.0-450.0) 10^3/uL MPV (7.0-11.0) fl Gran % (50.0-68.0) % Lymph % (Auto) (22.0-35.0) % [place] % (Auto) (1.0-6.0) % Eos % (Auto) (1.5-5.0) % Baso % (Auto) (0.0-3.0) % Gran # (1.4-6.5) Lymph # (Auto) (1.2-3.4) [place] # (Auto) (0.1-0.6) Eos # (Auto) (0.0-0.7) Baso # (Auto) (0.0-2.0) K/mm3 Sodium (132-148) mmol/L Potassium (3.6-5.0) mmol/L Chloride (98-107) mmol/L Carbon Dioxide (21-33) mmol/L Anion Gap (10-20) BUN (7-21) mg/dL Creatinine (0.8-1.5) mg/dl Est GFR ( Amer) Est GFR (Non-Af Amer) POC Glucose (mg/dL) 59 L 59 L (65-110) mg/dL Random Glucose (70-110) mg/dL Calcium (8.4-10.5) mg/dL Phosphorus (2.5-4.5) mg/dL Magnesium (1.7-2.2) mg/dL Total Bilirubin (0.2-1.3) mg/dL AST (17-59) U/L ALT (7-56) U/L Alkaline Phosphatase (38-126) U/L Total Protein (5.8-8.3) g/dL Albumin (3.0-4.8) g/dL Globulin gm/dL Albumin/Globulin Ratio (1.1-1.8) Hep Bs Antigen Negative (NEGATIVE) Hep B Core IgM Ab Negative (NEGATIVE) 12/07/17 12/07/17 Range/Units 18:04 17:13 WBC (4.5-11.0) 10^3/ul RBC (3.5-6.1) 10^6/uL Hgb (14.0-18.0) g/dL Hct (42.0-52.0) % MCV (80.0-105.0) fl MCH (25.0-35.0) pg MCHC (31.0-37.0) g/dl RDW (11.5-14.5) % Plt Count (120.0-450.0) 10^3/uL MPV (7.0-11.0) fl Gran % (50.0-68.0) % Lymph % (Auto) (22.0-35.0) % [place] % (Auto) (1.0-6.0) % Eos % (Auto) (1.5-5.0) % Baso % (Auto) (0.0-3.0) % Gran # (1.4-6.5) Lymph # (Auto) (1.2-3.4) [place] # (Auto) (0.1-0.6) Eos # (Auto) (0.0-0.7) Baso # (Auto) (0.0-2.0) K/mm3 Sodium (132-148) mmol/L Potassium (3.6-5.0) mmol/L Chloride (98-107) mmol/L Carbon Dioxide (21-33) mmol/L Anion Gap (10-20) BUN (7-21) mg/dL Creatinine (0.8-1.5) mg/dl Est GFR ( Amer) Est GFR (Non-Af Amer) POC Glucose (mg/dL) 158 H 51 L (65-110) mg/dL Random Glucose (70-110) mg/dL Calcium (8.4-10.5) mg/dL Phosphorus (2.5-4.5) mg/dL Magnesium (1.7-2.2) mg/dL Total Bilirubin (0.2-1.3) mg/dL AST (17-59) U/L ALT (7-56) U/L Alkaline Phosphatase (38-126) U/L Total Protein (5.8-8.3) g/dL Albumin (3.0-4.8) g/dL Globulin gm/dL Albumin/Globulin Ratio (1.1-1.8) Hep Bs Antigen (NEGATIVE) Hep B Core IgM Ab (NEGATIVE) Laboratory Results - last 24 hr 12/07/17 12/07/17 12/07/17 17:13 18:04 22:01 WBC RBC Hgb Hct MCV MCH MCHC RDW Plt Count MPV Gran % Lymph % (Auto) [place] % (Auto) Eos % (Auto) Baso % (Auto) Gran # Lymph # (Auto) [place] # (Auto) Eos # (Auto) Baso # (Auto) Sodium Potassium Chloride Carbon Dioxide Anion Gap BUN Creatinine Est GFR ( Amer) Est GFR (Non-Af Amer) POC Glucose (mg/dL) 51 L 158 H 59 L Random Glucose Calcium Phosphorus Magnesium Total Bilirubin AST ALT Alkaline Phosphatase Total Protein Albumin Globulin Albumin/Globulin Ratio Hep Bs Antigen Hep B Core IgM Ab 12/07/17 12/07/17 12/07/17 22:04 22:56 22:56 WBC RBC Hgb Hct MCV MCH MCHC RDW Plt Count MPV Gran % Lymph % (Auto) [place] % (Auto) Eos % (Auto) Baso % (Auto) Gran # Lymph # (Auto) [place] # (Auto) Eos # (Auto) Baso # (Auto) Sodium 142 Potassium 4.6 Chloride 110 H Carbon Dioxide 20 L Anion Gap 17 BUN 101 H Creatinine 5.0 H Est GFR ( Amer) 14 Est GFR (Non-Af Amer) 12 POC Glucose (mg/dL) 59 L Random Glucose 98 Calcium 8.9 Phosphorus Magnesium Total Bilirubin AST ALT Alkaline Phosphatase Total Protein Albumin Globulin Albumin/Globulin Ratio Hep Bs Antigen Negative Hep B Core IgM Ab Negative 12/07/17 12/08/17 12/08/17 23:05 02:17 05:45 WBC 11.6 H RBC 5.20 Hgb 15.2 Hct 46.8 MCV 90.0 MCH 29.2 MCHC 32.5 RDW 14.4 Plt Count 293 MPV 10.7 Gran % 73.6 H Lymph % (Auto) 11.2 L [place] % (Auto) 7.2 H Eos % (Auto) 7.1 H Baso % (Auto) 0.9 Gran # 8.54 H Lymph # (Auto) 1.3 [place] # (Auto) 0.8 H Eos # (Auto) 0.8 H Baso # (Auto) 0.10 Sodium Potassium Chloride Carbon Dioxide Anion Gap BUN Creatinine Est GFR ( Amer) Est GFR (Non-Af Amer) POC Glucose (mg/dL) 104 96 Random Glucose Calcium Phosphorus Magnesium Total Bilirubin AST ALT Alkaline Phosphatase Total Protein Albumin Globulin Albumin/Globulin Ratio Hep Bs Antigen Hep B Core IgM Ab 12/08/17 12/08/17 12/08/17 05:45 06:04 07:48 WBC RBC Hgb Hct MCV MCH MCHC RDW Plt Count MPV Gran % Lymph % (Auto) [place] % (Auto) Eos % (Auto) Baso % (Auto) Gran # Lymph # (Auto) [place] # (Auto) Eos # (Auto) Baso # (Auto) Sodium 145 Potassium 4.9 Chloride 111 H Carbon Dioxide 21 Anion Gap 17 BUN 96 H Creatinine 4.9 H Est GFR ( Amer) 15 Est GFR (Non-Af Amer) 12 POC Glucose (mg/dL) 59 L 97 Random Glucose 65 L Calcium 9.5 Phosphorus 7.9 H Magnesium 1.7 Total Bilirubin 0.5 AST 19 ALT 10 Alkaline Phosphatase 65 Total Protein 8.0 Albumin 3.9 Globulin 4.1 Albumin/Globulin Ratio 1.0 L Hep Bs Antigen Hep B Core IgM Ab 12/08/17 12/08/17 07:52 11:18 WBC RBC Hgb Hct MCV MCH MCHC RDW Plt Count MPV Gran % Lymph % (Auto) [place] % (Auto) Eos % (Auto) Baso % (Auto) Gran # Lymph # (Auto) [place] # (Auto) Eos # (Auto) Baso # (Auto) Sodium Potassium Chloride Carbon Dioxide Anion Gap BUN Creatinine Est GFR ( Amer) Est GFR (Non-Af Amer) POC Glucose (mg/dL) 109 159 H Random Glucose Calcium Phosphorus Magnesium Total Bilirubin AST ALT Alkaline Phosphatase Total Protein Albumin Globulin Albumin/Globulin Ratio Hep Bs Antigen Hep B Core IgM Ab Critical Care Progress Note - Nutrition Nutrition: Nutrition Category Date Time Status Renal Diet [DIET] Diets 12/08/17 Breakfast Ordered Assessment/Plan - Assessment and Plan (Free Text) Assessment: Patient seen and examined on rounds with resident, agree with note with following additions/exceptions; Patient is 62yo Male w/PMH of DM2, Developmental Delay, Hypothyroidism, CAD s/p PCI, CHF Last known EF 34% (07/2016), Stage IV CKD (Baseline Cr 5.7-6.0; -2017), BPH, admitted with N/V and Diarrhea x2 days, severe hyperkalemia (7.0), with initiation of HD on this admission, and subsequent resolution of hyperkalemia. Currently afebrile, BP stable, comfortable in NAD, doing well. DM Hypothyroidism Hyperkalemia, resolved CKD s/p initiation of HD CHF Nausea with vomiting Recommend: - supp o2 as needed, duonebs PRN - follow up cultures, hepatitis panel - BP control - ECHO - HD as per renal - FS control - follow up GI, EGD, Colonoscopy as per GI - GI ppx - DVT ppx - transfer to telemetry if tolerates HD well today
--- NOTE | 2017-12-08 07:46 | CP.PCM.PN ---
<Michael Curtis - Last Filed: 12/08/17 10:27> Subjective - Date & Time of Evaluation Date of Evaluation: 12/08/17 Time of Evaluation: 07:43 - Subjective Subjective: GI Progress Note for Dr. Levy's Service- Danilo, PGY2 Patient seen and assessed at bedside in ICU. No acute events overnight noted. Patient currently denies any fevers, chills, chest pain, SOB, hematemeis, abdominal pain, N/V/D/C, melena, changes in urine output or any skin changes. Objective - Vital Signs/Intake and Output Vital Signs (last 24 hours): Temp Pulse Resp BP Pulse Ox 97.4 F L 77 18 125/75 95 12/08/17 01:00 12/08/17 07:00 12/08/17 05:00 12/08/17 07:00 12/08/17 07:00 Intake and Output: 12/08/17 12/08/17 06:59 18:59 Intake Total 1960 Output Total 1745 Balance 215 - Medications Medications: Current Medications Atorvastatin Calcium (Lipitor) 20 mg PO HS [facility] Last Admin: 12/07/17 21:38 Dose: 20 mg Calcitriol (Rocaltrol) 0.25 mcg PO DAILY [facility] Calcium Acetate (Phoslo) 667 mg PO AC [facility] Last Admin: 12/08/17 07:12 Dose: 667 mg Carvedilol (Coreg) 25 mg PO BID [facility] Last Admin: 12/07/17 17:25 Dose: Not Given Famotidine (Pepcid) 40 mg PO HS [facility] Last Admin: 12/07/17 21:39 Dose: 40 mg Heparin Sodium (Porcine) (Heparin) 5,000 units SC Q12 [facility] PRN Reason: Protocol Last Admin: 12/07/17 22:10 Dose: Not Given Insulin Human Regular (Humulin R Med) 0 units SC Q6H [facility] PRN Reason: Protocol Last Admin: 12/08/17 04:54 Dose: Not Given Levothyroxine Sodium (Synthroid) 125 mcg PO DAILY [facility] Ondansetron HCl (Zofran Inj) 4 mg IVP Q6H PRN PRN Reason: Nausea/Vomiting Sodium Bicarbonate (Sodium Bicarbonate Tab) 650 mg PO TID [facility] Last Admin: 12/07/17 17:26 Dose: 650 mg Tamsulosin HCl (Flomax) 0.4 mg PO DAILY [facility] - Labs Labs: 12/08/17 05:45 12/08/17 05:45 PT 11.9 SECONDS (9.4-12.5) 12/07/17 09:20 INR 1.03 12/07/17 09:20 APTT 37.4 Seconds (25.1-36.5) H 12/07/17 09:20 - Constitutional Appears: Non-toxic, No Acute Distress - Head Exam Head Exam: ATRAUMATIC, NORMOCEPHALIC - Eye Exam Eye Exam: EOMI - Neck Exam Neck Exam: Full ROM - Respiratory Exam Respiratory Exam: NORMAL BREATHING PATTERN. absent: Accessory Muscle Use, Respiratory Distress - Cardiovascular Exam Cardiovascular Exam: +S1, +S2 - GI/Abdominal Exam GI & Abdominal Exam: Distended (Mild), Soft, Normal Bowel Sounds. absent: Bruit , Firm, Guarding, Rigid, Tenderness, Diminished Bowel Sounds, Hernia, Hyperactive Bowel Sounds, Hypoactive Bowel Sounds, Mass, Organomegaly, Pulsatile Mass, Rebound - Rectal Exam Rectal Exam: Deferred - Neurological Exam Neurological Exam: Alert, Awake - Psychiatric Exam Psychiatric exam: Normal Affect, Normal Mood - Skin Skin Exam: Dry, Intact, Normal Color, Warm Assessment and Plan - Assessment and Plan (Free Text) Assessment: 62 year old male with a past medical history significant for developmental delay , CHF s/p ICD placement, CAD s/p PCI, CKD stage 4, HTN, hypothyroidism, DM2, and BPH who presents with two days of nausea, NBNB vomiting, and diarrhea. Of note, a CT abdomen/pelvis done in the ED showed a fat containing umbilical hernia. Patient was also found to have hyperkalemia of 7.0 and required emergent HD. Plan: -CT Abdomen/Pelvis showed fat containing umbilical hernia -Stool electrolytes, stool culture, C. Diff serology and fecal leukocytes pending -Chromogranin A, ECL pending -Renal Diet -Continue Pepcid HS -Continue Zofran PRN for N/V -DVT Prophylaxis GI Disposition: Patient will need EGD/Colonoscopy once medically optimized. Patient seen and case discussed with attending, Dr. Levy. <Temo Levy V - Last Filed: 12/08/17 22:08> Objective - Vital Signs/Intake and Output Vital Signs (last 24 hours): Temp Pulse Resp BP Pulse Ox 97.4 F L 78 17 120/69 96 12/08/17 01:00 12/08/17 20:01 12/08/17 20:01 12/08/17 20:01 12/08/17 20:01 - Medications Medications: Current Medications Atorvastatin Calcium (Lipitor) 20 mg PO HS [facility] Last Admin: 12/07/17 21:38 Dose: 20 mg Calcitriol (Rocaltrol) 0.25 mcg PO DAILY [facility] Last Admin: 12/08/17 10:46 Dose: 0.25 mcg Calcium Acetate (Phoslo) 1,334 mg PO AC [facility] Last Admin: 12/08/17 18:49 Dose: 1,334 mg Carvedilol (Coreg) 25 mg PO BID [facility] Last Admin: 12/08/17 18:49 Dose: 25 mg Famotidine (Pepcid) 40 mg PO HS [facility] Last Admin: 12/07/17 21:39 Dose: 40 mg Heparin Sodium (Porcine) (Heparin) 5,000 units SC Q12 [facility] PRN Reason: Protocol Last Admin: 12/07/17 22:10 Dose: Not Given Insulin Human Regular (Humulin R Med) 0 units SC Q6H [facility] PRN Reason: Protocol Last Admin: 12/08/17 18:50 Dose: Not Given Levothyroxine Sodium (Synthroid) 125 mcg PO DAILY [facility] Last Admin: 12/08/17 10:50 Dose: 125 mcg Ondansetron HCl (Zofran Inj) 4 mg IVP Q6H PRN PRN Reason: Nausea/Vomiting Tamsulosin HCl (Flomax) 0.4 mg PO DAILY [facility] Last Admin: 12/08/17 10:44 Dose: 0.4 mg - Labs Labs: 12/08/17 05:45 12/08/17 05:45 PT 11.9 SECONDS (9.4-12.5) 12/07/17 09:20 INR 1.03 12/07/17 09:20 APTT 37.4 Seconds (25.1-36.5) H 12/07/17 09:20 Attending/Attestation - Attestation I have personally seen and examined this patient.: Yes I have fully participated in the care of the patient.: Yes I have reviewed all pertinent clinical information, including history, physical exam and plan: Yes Notes (Text): This is an addendum to GI followup report dictated by the Rehabilitation Services Director. The patient was seen and evaluated earlier. Medical records, lab studies, imagings were reviewed. Last 24 hours events reviewed. Agreed with the above treatment plan as outlined in Rehabilitation Services Director 's notes with the addition of the following History of chronic diarrhea unclear etiology Chronic kidney disease Admitted with hyperkalemia status post emergent HT On examination abdomen softly distended nontender Followup stool studies Requested chromogranin A EGD colonoscopy when optimized Discussed with ICU staff 12/08/17 22:05
[2017-12-08] MEDS: Levothyroxine 125 MCG TAB PO SCH (10:50)
[2017-12-08 12:52] LABS: HEPATITIS B SURFACE AG Negative (NEGATIVE)
[2017-12-08 12:58] LABS: HEPATITIS B CORE AB NEGATIVE (NEGATIVE)
--- NOTE | 2017-12-08 15:18 | CP.PCM.PN ---
<Ovidio Hollingsworth - Last Filed: 12/08/17 15:15> Subjective - Date & Time of Evaluation Date of Evaluation: 12/08/17 Time of Evaluation: 07:00 - Subjective Subjective: Ovidio Hollingsworth PGY1 Medicine Progress Note for Dr. Rahman Patient was seen and examined at bedside this morning. Patient is pending HD session later this morning. Patient denied cp, sob, abdominal pain, n/v/d. No fevers overnight. Vital signs stable. Patient had HD yesterday, however, clotting was noted in the dialysis membrane and dialysis was stopped after 30 minutes. No complications thereafter. A full 12 point ROS was conducted and unremarkable except as stated above. Objective - Vital Signs/Intake and Output Vital Signs (last 24 hours): Temp Pulse Resp BP Pulse Ox 97.4 F L 78 18 117/78 95 12/08/17 01:00 12/08/17 10:44 12/08/17 05:00 12/08/17 10:44 12/08/17 07:00 Intake and Output: 12/08/17 12/08/17 06:59 18:59 Intake Total 1960 Output Total 1745 Balance 215 - Medications Medications: Current Medications Atorvastatin Calcium (Lipitor) 20 mg PO HS [facility] Last Admin: 12/07/17 21:38 Dose: 20 mg Calcitriol (Rocaltrol) 0.25 mcg PO DAILY [facility] Last Admin: 12/08/17 10:46 Dose: 0.25 mcg Calcium Acetate (Phoslo) 667 mg PO AC [facility] Last Admin: 12/08/17 07:12 Dose: 667 mg Carvedilol (Coreg) 25 mg PO BID [facility] Last Admin: 12/08/17 10:44 Dose: 25 mg Famotidine (Pepcid) 40 mg PO HS [facility] Last Admin: 12/07/17 21:39 Dose: 40 mg Heparin Sodium (Porcine) (Heparin) 5,000 units SC Q12 [facility] PRN Reason: Protocol Last Admin: 12/07/17 22:10 Dose: Not Given Insulin Human Regular (Humulin R Med) 0 units SC Q6H [facility] PRN Reason: Protocol Last Admin: 12/08/17 10:45 Dose: Not Given Levothyroxine Sodium (Synthroid) 125 mcg PO DAILY [facility] Last Admin: 12/08/17 10:50 Dose: 125 mcg Ondansetron HCl (Zofran Inj) 4 mg IVP Q6H PRN PRN Reason: Nausea/Vomiting Sodium Bicarbonate (Sodium Bicarbonate Tab) 650 mg PO TID [facility] Last Admin: 12/08/17 10:52 Dose: 650 mg Tamsulosin HCl (Flomax) 0.4 mg PO DAILY [facility] Last Admin: 12/08/17 10:44 Dose: 0.4 mg - Labs Labs: 12/08/17 05:45 12/08/17 05:45 PT 11.9 SECONDS (9.4-12.5) 12/07/17 09:20 INR 1.03 12/07/17 09:20 APTT 37.4 Seconds (25.1-36.5) H 12/07/17 09:20 - Constitutional Appears: Well, No Acute Distress - Head Exam Head Exam: ATRAUMATIC, NORMAL INSPECTION, NORMOCEPHALIC - Eye Exam Eye Exam: EOMI, Normal appearance, PERRL - ENT Exam ENT Exam: Mucous Membranes Moist, Normal Exam - Neck Exam Neck Exam: Full ROM, Normal Inspection. absent: Lymphadenopathy - Respiratory Exam Respiratory Exam: Clear to Ausculation Bilateral, NORMAL BREATHING PATTERN. absent: Chest Wall Tenderness, Rales, Rhonchi, Wheezes, Respiratory Distress - Cardiovascular Exam Cardiovascular Exam: REGULAR RHYTHM, +S1, +S2. absent: Murmur Additional comments: Right- IJ tunneled dialysis catheter is in place. Previously had bleeding from port. Not actively bleeding now. - GI/Abdominal Exam GI & Abdominal Exam: Soft, Normal Bowel Sounds. absent: Tenderness Additional comments: Periumbilical abdominal hernia. Reducible. - Extremities Exam Extremities Exam: Full ROM, Normal Capillary Refill, Normal Inspection. absent : Joint Swelling, Pedal Edema - Back Exam Back Exam: NORMAL INSPECTION - Neurological Exam Neurological Exam: Alert, Awake, CN II-XII Intact, Normal Gait, Oriented x3 Neuro motor strength exam: Left Upper Extremity: 5, Right Upper Extremity: 5, Left Lower Extremity: 5, Right Lower Extremity: 5 - Psychiatric Exam Psychiatric exam: Normal Affect, Normal Mood - Skin Skin Exam: Dry, Intact, Normal Color, Warm Assessment and Plan - Assessment and Plan (Free Text) Assessment: 62 year old male with a past medical history significant for Stage IV CKD (not on HD), CAD with AICD, DM II, and developmental delay who presents with 2 days of intractable diarrhea, nausea, and one episode of vomiting. He was found to have hyperkalemic, uremic, and hypermagnesemic in the ED. Patient required emergent dialysis. He had placement of right IJ tunneled dialysis catheter on . Patient is starting HD and being monitored in the ICU. Plan: Kidney failure with CKD Stage IV - receiving HD - R-IJ tunneled dialysis catheter is in place - Continue with HD today - BUN/Cr is 96/4.9 today - HD on 12/07 was unsuccessful - Nephrology consulted, recs appreciated. - IR was consulted for dialysis catheter. - f/u PTH - started on phosphate binders - c/w Phoslo 667 mg TID - c/w Calcitriol 0.25 mg - Holding metformin because of renal failure - EKG showed no arrhythmia or peak T-waves Hyperkalemia - improved - K is now 4.9 - Initial K of 7.0 - Kayexelate 15 mg, Insulin 25 units IVP, and Duonebs given in ED - continue to monitor - No acute EKG changes Vomiting and Diarrhea with History of Periumbilical Hernia - Reducible hernia, no acute intervention is warranted at this moment - As per GI, patient may receive endoscopy or colonoscopy when he is medically optimized, preferably as outpatient. - f/u stool studies - GI consulted, recs appreciated. DM II - ISS - f/u A1c - accuchecks CAD - Holding aspirin and plavix - c/w Atorvastatin 20 mg PO HS Hypertension - Currently normotensive - c/w carvedilol 25 mg BID PPx: - DVT ppx: Heparin SC (Held today because of prior bleeding at R-IJ catheter) - GI ppx: Pepcid Dispo: Continue to monitor patient in the ICU. Continue with Hemodialysis. Case reviewed and discussed with attending physician, Dr. Rahman <Cecile Rahman - Last Filed: 12/09/17 15:03> Objective - Vital Signs/Intake and Output Vital Signs (last 24 hours): Temp Pulse Resp BP Pulse Ox 98 F 80 24 127/80 82 L 12/09/17 00:00 12/09/17 11:05 12/09/17 08:31 12/09/17 11:05 12/09/17 08:00 Intake and Output: 12/09/17 12/09/17 06:59 18:59 Intake Total 500 Output Total 600 Balance -100 - Medications Medications: Current Medications Aspirin (Aspirin Chewable) 81 mg PO DAILY [facility] Last Admin: 12/09/17 11:05 Dose: 81 mg Atorvastatin Calcium (Lipitor) 20 mg PO HS [facility] Last Admin: 12/08/17 23:01 Dose: 20 mg Calcitriol (Rocaltrol) 0.25 mcg PO DAILY [facility] Last Admin: 12/09/17 11:12 Dose: 0.25 mcg Calcium Acetate (Phoslo) 1,334 mg PO AC [facility] Last Admin: 12/09/17 11:11 Dose: 1,334 mg Carvedilol (Coreg) 25 mg PO BID [facility] Last Admin: 12/09/17 11:05 Dose: 25 mg Clopidogrel Bisulfate (Plavix) 75 mg PO DAILY [facility] Last Admin: 12/09/17 11:11 Dose: 75 mg Famotidine (Pepcid) 40 mg PO HS [facility] Last Admin: 12/08/17 23:01 Dose: 40 mg Heparin Sodium (Porcine) (Heparin) 5,000 units SC Q12 [facility] PRN Reason: Protocol Last Admin: 12/09/17 11:08 Dose: 5,000 units Insulin Human Regular (Humulin R Med) 0 units SC Q6H [facility] PRN Reason: Protocol Last Admin: 12/09/17 10:40 Dose: Not Given Levothyroxine Sodium (Synthroid) 125 mcg PO DAILY [facility] Last Admin: 12/09/17 11:12 Dose: 125 mcg Ondansetron HCl (Zofran Inj) 4 mg IVP Q6H [facility] PRN Reason: Nausea/Vomiting Tamsulosin HCl (Flomax) 0.4 mg PO DAILY [facility] Last Admin: 12/09/17 11:06 Dose: 0.4 mg - Labs Labs: 12/09/17 05:25 12/09/17 05:25 PT 11.9 SECONDS (9.4-12.5) 12/07/17 09:20 INR 1.03 12/07/17 09:20 APTT 37.4 Seconds (25.1-36.5) H 12/07/17 09:20 Attending/Attestation - Attestation I have personally seen and examined this patient.: Yes I have fully participated in the care of the patient.: Yes I have reviewed all pertinent clinical information, including history, physical exam and plan: Yes Notes (Text): 12/09/17 15:01 Attending note; Patient seen and examined with resident in ICU. Denies any nausea, vomiting. Denies any abdominal discomfort, diarrhea. Tolerating diet well. Right IJ permacath in place. Minimal oozing. Dressing intact. Patient is a 62 year old male with past medical history of DMII, developmental delay, hypothyroidism, CAD s/p PCI, CHF with EF 34%, Stage IV CKD who presents for 2 days of diarrhea and one episode of vomiting. End-stage renal disease; started on hemodialysis yesterday. Case discussed with latin dancer in detail. Hyperkalemia and acidosis resolved. Continue hemodialysis per nephrology. Diabetes; continue with regular insulin sliding scale. Diarrhea; CT abdomen and pelvis showed fat containing umbilical hernia. GI evaluation appreciated. Outpatient EGD and colonoscopy recommended. Continue diet as tolerated. Monitor closely in ICU. planning manager evaluation requested for outpatient hemodialysis arrangements. Dietitian evaluation requested. Upon discharge the patient will follow up with PMD .
--- NOTE | 2017-12-08 16:38 | PN ---
DATE: 12/08/2017 SUBJECTIVE: The patient is seen lying in bed. He appears comfortable at this time. The patient had a short dialysis yesterday. The patient was started on dialysis 2 or 3 times, but had to be discontinued because of clotting of the dialyzer. The patient received IV heparin to aid in dialysis, but it was not successful. Currently, the patient denies any abdominal pain. He denies any nausea or vomiting. He denies any shortness of breath. His urine output in the last 24 hours was 1575. PHYSICAL EXAMINATION GENERAL: Obese, elderly male, lying in bed in the ICU. VITAL SIGNS: Blood pressure 117/78, heart rate 78, respiratory rate 18-20, temperature 97.4. HEENT: Normocephalic, atraumatic, positive pallor. NECK: Supple, no JVD. LUNGS: Bilateral equal air entry, bilateral equal expansion, no rales appreciated. No rhonchi. CARDIAC: S1 and S2, regular rate and rhythm, no murmur, no rub. ABDOMEN: Obese, distended, soft, nontender, bowel sounds present. EXTREMITIES: No lower extremity edema. INTAKE AND OUTPUT: 1960/1745. LABORATORY DATA: WBC 11.6, hemoglobin 15.2, hematocrit 46.8, platelets 293. Sodium 145, potassium 4.9, chloride 111, CO2 of 21, BUN 96, creatinine 4.9, glucose 65, calcium 9.5, phosphorus 7.9, magnesium 1.7, AST 19, ALT 10, albumin 3.9, globulin 4.1. CT of the abdomen and pelvis: Unremarkable kidneys, unremarkable bowel with no obstructions, large fat-containing umbilical hernia 6.4 cm. CURRENT MEDICATIONS: Coreg 25 b.i.d., Flomax 0.4, heparin, insulin, Lipitor, Pepcid, PhosLo 667 t.i.d., Rocaltrol 0.25, sodium bicarbonate 650 t.i.d., Synthroid, Zofran. ASSESSMENT: 1. Severe life-threatening hyperkalemia, resolved with medical treatment and dialysis. 2. Acute kidney injury superimposed on chronic kidney disease stage V. 3. No evidence of anemia. 4. Severe secondary hyperparathyroidism/hyperphosphatemia. 5. Congestive heart failure/dilated cardiomyopathy/decreased ejection fraction/automatic implantable cardioverter-defibrillator. 6. Mental disability. 7. Nausea, vomiting, ? uremia. All resolved. PLAN: 1. The patient will receive dialysis today. We will give him 2000 units of heparin bolus to aid in dialysis. 2. Discontinue sodium bicarbonate oral. Now the patient is on dialysis. 3. Check intact PTH levels. 4. Check hemoglobin A1c. 5. Will likely require chronic dialysis. 6. 24-hour urine for protein and creatinine clearance. 7. Case discussed with cousin via phone at length. 8. Case discussed with ICU staff, social organization professor. 9. Case discussed with ICU residents, more than 35 minutes spent in the care of this critically ill patient. 10. Increase PhosLo to 2 tablets three times a day with meals. 11. Daily labs. Kaity Helms MD
[2017-12-09 06:26] LABS: BASO # 0.08 K/mm3 (0.0-2.0); BASO % 0.6 % (0.0-3.0); EOS # 0.5 (0.0-0.7); EOS % 3.8 % (1.5-5.0); GRAN # 8.69 (1.4-6.5); GRAN % 69.3 % (50.0-68.0); HEMOGLOBIN 14.8 g/dL (14.0-18.0); LYMPH # 1.3 (1.2-3.4); LYMPH % 10.7 % (22.0-35.0); MEAN CELL VOLUME 89.9 fl (80.0-105.0); MEAN CORPUSCULAR HEMOGLOBIN 29.8 pg (25.0-35.0); MEAN CORPUSCULAR HGB CONC 33.2 g/dl (31.0-37.0); MEAN PLATELET VOLUME 10.5 fl (7.0-11.0); MONO % 15.6 % (1.0-6.0); RBC 4.96 10^6/uL (3.5-6.1); RED CELL DISTRIBUTION WIDTH 14.4 % (11.5-14.5); WHITE BLOOD COUNT 12.6 10^3/ul (4.5-11.0)
[2017-12-09 07:14] LABS: ALBUMIN 3.9 g/dL (3.0-4.8); CALCIUM 9.5 mg/dL (8.4-10.5)
--- NOTE | 2017-12-09 07:28 | CP.PCM.PN ---
<Michael Curtis - Last Filed: 12/09/17 10:36> Subjective - Date & Time of Evaluation Date of Evaluation: 12/09/17 Time of Evaluation: 07:25 - Subjective Subjective: GI Progress Note for Dr. Levy's Service- Danilo, PGY2 Patient seen and assessed at bedside in ICU. No acute events overnight noted. Patient currently denies any fever, chills, chest pain, SOB, abdominal pain, N/V /D/C, changes in urine output or any skin changes. Objective - Vital Signs/Intake and Output Vital Signs (last 24 hours): Temp Pulse Resp BP Pulse Ox 98 F 75 14 125/72 76 L 12/09/17 00:00 12/09/17 02:00 12/09/17 01:00 12/09/17 02:00 12/09/17 02:00 - Medications Medications: Current Medications Atorvastatin Calcium (Lipitor) 20 mg PO HS [facility] Last Admin: 12/08/17 23:01 Dose: 20 mg Calcitriol (Rocaltrol) 0.25 mcg PO DAILY [facility] Last Admin: 12/08/17 10:46 Dose: 0.25 mcg Calcium Acetate (Phoslo) 1,334 mg PO AC [facility] Last Admin: 12/08/17 18:49 Dose: 1,334 mg Carvedilol (Coreg) 25 mg PO BID [facility] Last Admin: 12/08/17 18:49 Dose: 25 mg Famotidine (Pepcid) 40 mg PO HS [facility] Last Admin: 12/08/17 23:01 Dose: 40 mg Heparin Sodium (Porcine) (Heparin) 5,000 units SC Q12 [facility] PRN Reason: Protocol Last Admin: 12/07/17 22:10 Dose: Not Given Insulin Human Regular (Humulin R Med) 0 units SC Q6H [facility] PRN Reason: Protocol Last Admin: 12/08/17 22:21 Dose: Not Given Levothyroxine Sodium (Synthroid) 125 mcg PO DAILY [facility] Last Admin: 12/08/17 10:50 Dose: 125 mcg Ondansetron HCl (Zofran Inj) 4 mg IVP Q6H PRN PRN Reason: Nausea/Vomiting Tamsulosin HCl (Flomax) 0.4 mg PO DAILY [facility] Last Admin: 12/08/17 10:44 Dose: 0.4 mg - Labs Labs: 12/09/17 05:25 12/09/17 05:25 PT 11.9 SECONDS (9.4-12.5) 12/07/17 09:20 INR 1.03 12/07/17 09:20 APTT 37.4 Seconds (25.1-36.5) H 12/07/17 09:20 - Constitutional Appears: Non-toxic, No Acute Distress - Head Exam Head Exam: ATRAUMATIC, NORMOCEPHALIC - Eye Exam Eye Exam: EOMI - Neck Exam Neck Exam: Full ROM - Respiratory Exam Respiratory Exam: NORMAL BREATHING PATTERN. absent: Accessory Muscle Use, Respiratory Distress - Cardiovascular Exam Cardiovascular Exam: +S1, +S2 - GI/Abdominal Exam GI & Abdominal Exam: Distended (Mild), Soft, Normal Bowel Sounds. absent: Bruit , Firm, Guarding, Rigid, Tenderness, Diminished Bowel Sounds, Hernia, Hyperactive Bowel Sounds, Hypoactive Bowel Sounds, Mass, Organomegaly, Pulsatile Mass, Rebound - Rectal Exam Rectal Exam: Deferred - Extremities Exam Extremities Exam: absent: Calf Tenderness - Neurological Exam Neurological Exam: Alert, Awake, Oriented x3 - Psychiatric Exam Psychiatric exam: Normal Affect, Normal Mood - Skin Skin Exam: Dry, Intact, Normal Color, Warm Assessment and Plan - Assessment and Plan (Free Text) Assessment: 62 year old male with a past medical history significant for developmental delay , CHF s/p ICD placement, CAD s/p PCI, CKD stage 4, HTN, hypothyroidism, DM2, and BPH who presents with two days of nausea, NBNB vomiting, and diarrhea. Plan: -CT Abdomen/Pelvis showed fat containing umbilical hernia -Stool leukocyte negative -Stool electrolytes, stool culture, C. Diff serology and Chromogranin A, ECL pending -Renal Diet -Continue Pepcid HS -Continue Zofran PRN for N/V -DVT Prophylaxis GI Disposition: Patient will need EGD/Colonoscopy once medically optimized. This was discussed with the patient who is in agreement. Patient seen and case discussed with attending, Dr. Levy. <Temo Levy V - Last Filed: 12/10/17 21:51> Objective - Vital Signs/Intake and Output Vital Signs (last 24 hours): Temp Pulse Resp BP Pulse Ox 98.3 F 99 H 20 129/86 97 12/10/17 14:00 12/10/17 17:31 12/10/17 14:00 12/10/17 17:31 12/10/17 14:00 - Medications Medications: Current Medications Aspirin (Aspirin Chewable) 81 mg PO DAILY [facility] Last Admin: 12/10/17 10:39 Dose: 81 mg Atorvastatin Calcium (Lipitor) 20 mg PO HS [facility] Last Admin: 12/10/17 21:11 Dose: 20 mg Calcitriol (Rocaltrol) 0.25 mcg PO DAILY [facility] Last Admin: 12/10/17 10:39 Dose: 0.25 mcg Calcium Acetate (Phoslo) 1,334 mg PO AC [facility] Last Admin: 12/10/17 17:31 Dose: 1,334 mg Carvedilol (Coreg) 25 mg PO BID [facility] Last Admin: 12/10/17 17:31 Dose: 25 mg Clopidogrel Bisulfate (Plavix) 75 mg PO DAILY [facility] Last Admin: 12/10/17 10:39 Dose: 75 mg Famotidine (Pepcid) 40 mg PO HS [facility] Last Admin: 12/10/17 21:11 Dose: 40 mg Heparin Sodium (Porcine) (Heparin) 5,000 units SC Q12 [facility] PRN Reason: Protocol Last Admin: 12/10/17 21:11 Dose: 5,000 units Insulin Human Regular (Humulin R Med) 0 units SC Q6H [facility] PRN Reason: Protocol Last Admin: 12/10/17 21:16 Dose: Not Given Levothyroxine Sodium (Synthroid) 125 mcg PO DAILY [facility] Last Admin: 12/10/17 10:39 Dose: 125 mcg Ondansetron HCl (Zofran Inj) 4 mg IVP Q6H PRN PRN Reason: Nausea/Vomiting Tamsulosin HCl (Flomax) 0.4 mg PO DAILY [facility] Last Admin: 12/10/17 10:39 Dose: 0.4 mg - Labs Labs: 12/10/17 07:30 12/10/17 07:30 PT 11.9 SECONDS (9.4-12.5) 12/07/17 09:20 INR 1.03 12/07/17 09:20 APTT 37.4 Seconds (25.1-36.5) H 12/07/17 09:20 Attending/Attestation - Attestation I have personally seen and examined this patient.: Yes I have fully participated in the care of the patient.: Yes I have reviewed all pertinent clinical information, including history, physical exam and plan: Yes Notes (Text): This is a delayed addendum to GI followup report dictated by the Art Framing Manager. The patient was seen and evaluated earlier. Medical records, lab studies, imagings were reviewed. Last 24 hours events reviewed. Agreed with the above treatment plan as outlined in Art Framing Manager 's notes with the addition of the following No diarrhea now Status post HD for hyperkalemia Advance diet as tolerated Would need elective GI workup 12/10/17 21:49
[2017-12-09] MEDS: Insulin Reg-MEDIUM-Coverage SC SCH ×2 (10:40→21:06)
[2017-12-09] MEDS: Levothyroxine 125 MCG TAB PO SCH (11:12)
--- NOTE | 2017-12-09 13:42 | CP.PCM.PN ---
<Ovidio Hollingsworth - Last Filed: 12/09/17 13:38> Subjective - Date & Time of Evaluation Date of Evaluation: 12/09/17 Time of Evaluation: 07:00 - Subjective Subjective: Ovidio Hollingsworth PGY1 Medicine Progress Note for Dr. Rahman Patient was seen and examined at bedside this morning. Patient had HD yesterday for about 2.5 hours; patient became dizzy with a SBP 80s within 40 minutes into treatment but afterwards, tolerated HD well with BP normotensive. During interview today, patient denies cp, sob, abdominal pain, n/v/d. No overnight changes and no fevers. A full 12 point ROS was conducted and unremarkable except as stated above. Objective - Vital Signs/Intake and Output Vital Signs (last 24 hours): Temp Pulse Resp BP Pulse Ox 98 F 80 24 127/80 82 L 12/09/17 00:00 12/09/17 11:05 12/09/17 08:31 12/09/17 11:05 12/09/17 08:00 Intake and Output: 12/09/17 12/09/17 06:59 18:59 Intake Total 500 Output Total 600 Balance -100 - Medications Medications: Current Medications Aspirin (Aspirin Chewable) 81 mg PO DAILY [facility] Last Admin: 12/09/17 11:05 Dose: 81 mg Atorvastatin Calcium (Lipitor) 20 mg PO HS [facility] Last Admin: 12/08/17 23:01 Dose: 20 mg Calcitriol (Rocaltrol) 0.25 mcg PO DAILY [facility] Last Admin: 12/09/17 11:12 Dose: 0.25 mcg Calcium Acetate (Phoslo) 1,334 mg PO AC [facility] Last Admin: 12/09/17 11:11 Dose: 1,334 mg Carvedilol (Coreg) 25 mg PO BID [facility] Last Admin: 12/09/17 11:05 Dose: 25 mg Clopidogrel Bisulfate (Plavix) 75 mg PO DAILY [facility] Last Admin: 12/09/17 11:11 Dose: 75 mg Famotidine (Pepcid) 40 mg PO HS [facility] Last Admin: 12/08/17 23:01 Dose: 40 mg Heparin Sodium (Porcine) (Heparin) 5,000 units SC Q12 [facility] PRN Reason: Protocol Last Admin: 12/09/17 11:08 Dose: 5,000 units Insulin Human Regular (Humulin R Med) 0 units SC Q6H [facility] PRN Reason: Protocol Last Admin: 12/09/17 10:40 Dose: Not Given Levothyroxine Sodium (Synthroid) 125 mcg PO DAILY [facility] Last Admin: 12/09/17 11:12 Dose: 125 mcg Ondansetron HCl (Zofran Inj) 4 mg IVP Q6H PRN PRN Reason: Nausea/Vomiting Tamsulosin HCl (Flomax) 0.4 mg PO DAILY [facility] Last Admin: 12/09/17 11:06 Dose: 0.4 mg - Labs Labs: 12/09/17 05:25 12/09/17 05:25 PT 11.9 SECONDS (9.4-12.5) 12/07/17 09:20 INR 1.03 12/07/17 09:20 APTT 37.4 Seconds (25.1-36.5) H 12/07/17 09:20 - Constitutional Appears: No Acute Distress - Head Exam Head Exam: ATRAUMATIC, NORMAL INSPECTION, NORMOCEPHALIC - Eye Exam Eye Exam: EOMI, Normal appearance, PERRL Pupil Exam: NORMAL ACCOMODATION, PERRL - ENT Exam ENT Exam: Mucous Membranes Moist, Normal Exam - Neck Exam Neck Exam: Full ROM, Normal Inspection. absent: Lymphadenopathy - Respiratory Exam Respiratory Exam: Clear to Ausculation Bilateral, NORMAL BREATHING PATTERN. absent: Chest Wall Tenderness, Rales, Rhonchi, Wheezes, Respiratory Distress, Stridor - Cardiovascular Exam Cardiovascular Exam: REGULAR RHYTHM, +S1, +S2. absent: Murmur Additional comments: HD port is in place at chest wall. New dressing was applied. - GI/Abdominal Exam GI & Abdominal Exam: Soft, Normal Bowel Sounds. absent: Tenderness - Extremities Exam Extremities Exam: Full ROM, Normal Capillary Refill, Normal Inspection - Back Exam Back Exam: NORMAL INSPECTION - Neurological Exam Neurological Exam: Alert, Awake, Oriented x3 Neuro motor strength exam: Left Upper Extremity: 5, Right Upper Extremity: 5, Left Lower Extremity: 5, Right Lower Extremity: 5 - Psychiatric Exam Psychiatric exam: Normal Affect, Normal Mood - Skin Skin Exam: Dry, Intact, Normal Color, Warm Assessment and Plan - Assessment and Plan (Free Text) Assessment: Patient is a 62 year old male with a past medical history significant for Stage IV CKD (not on HD), CAD with AICD, DM II, and developmental delay who presents with 2 days of intractable diarrhea, nausea, and one episode of vomiting. He was found to have hyperkalemic, uremic, and hypermagnesemic in the ED. Patient required emergent dialysis. He had placement of right IJ tunneled dialysis catheter on 12/07. Patient is tolerating HD in the ICU. Plan: Kidney failure with CKD Stage IV - receiving HD - c/w HD sessions. Patient may also follow up as outpatient for regular HD schedule. - BUN/Cr is 57/3.7 today from 96/4.9 yesterday (downtrending) - R-IJ tunneled dialysis catheter is in place (12/07) - f/u PTH - Nephrology consulted, recs appreciated. - IR was consulted for dialysis catheter. - started on phosphate binders - c/w Phoslo 667 mg TID - c/w Calcitriol 0.25 mg - Holding metformin because of renal failure - EKG showed no arrhythmia or peak T-waves Hyperkalemia - improved - K is now 4.7, stable - Initial K of 7.0 in ED - No acute EKG changes Vomiting and Diarrhea with History of Periumbilical Hernia - Reducible hernia, no acute intervention is warranted at this moment - As per GI, patient may receive endoscopy or colonoscopy when he is medically optimized, preferably as outpatient. - stool leukocytes are negative - GI consulted, recs appreciated. 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 Dispo: Continue to monitor patient in the ICU. Continue with Hemodialysis. Case reviewed and discussed with attending physician, Dr. Rahman <Cecile Rahman - Last Filed: 12/09/17 15:09> Objective - Vital Signs/Intake and Output Vital Signs (last 24 hours): Temp Pulse Resp BP Pulse Ox 98 F 80 24 127/80 82 L 12/09/17 00:00 12/09/17 11:05 12/09/17 08:31 12/09/17 11:05 12/09/17 08:00 Intake and Output: 12/09/17 12/09/17 06:59 18:59 Intake Total 500 Output Total 600 Balance -100 - Medications Medications: Current Medications Aspirin (Aspirin Chewable) 81 mg PO DAILY [facility] Last Admin: 12/09/17 11:05 Dose: 81 mg Atorvastatin Calcium (Lipitor) 20 mg PO HS [facility] Last Admin: 12/08/17 23:01 Dose: 20 mg Calcitriol (Rocaltrol) 0.25 mcg PO DAILY [facility] Last Admin: 12/09/17 11:12 Dose: 0.25 mcg Calcium Acetate (Phoslo) 1,334 mg PO AC [facility] Last Admin: 12/09/17 11:11 Dose: 1,334 mg Carvedilol (Coreg) 25 mg PO BID [facility] Last Admin: 12/09/17 11:05 Dose: 25 mg Clopidogrel Bisulfate (Plavix) 75 mg PO DAILY [facility] Last Admin: 12/09/17 11:11 Dose: 75 mg Famotidine (Pepcid) 40 mg PO HS [facility] Last Admin: 12/08/17 23:01 Dose: 40 mg Heparin Sodium (Porcine) (Heparin) 5,000 units SC Q12 [facility] PRN Reason: Protocol Last Admin: 12/09/17 11:08 Dose: 5,000 units Insulin Human Regular (Humulin R Med) 0 units SC Q6H [facility] PRN Reason: Protocol Last Admin: 12/09/17 10:40 Dose: Not Given Levothyroxine Sodium (Synthroid) 125 mcg PO DAILY [facility] Last Admin: 12/09/17 11:12 Dose: 125 mcg Ondansetron HCl (Zofran Inj) 4 mg IVP Q6H PRN PRN Reason: Nausea/Vomiting Tamsulosin HCl (Flomax) 0.4 mg PO DAILY [facility] Last Admin: 12/09/17 11:06 Dose: 0.4 mg - Labs Labs: 12/09/17 05:25 12/09/17 05:25 PT 11.9 SECONDS (9.4-12.5) 12/07/17 09:20 INR 1.03 12/07/17 09:20 APTT 37.4 Seconds (25.1-36.5) H 12/07/17 09:20 Attending/Attestation - Attestation I have personally seen and examined this patient.: Yes I have fully participated in the care of the patient.: Yes I have reviewed all pertinent clinical information, including history, physical exam and plan: Yes Notes (Text): 12/09/17 15:07 Attending note; Patient seen and examined with resident in ICU. Denies any nausea, vomiting. Denies any abdominal discomfort, diarrhea. Tolerating diet well. Right IJ permacath in place. no bleeding noted. Patient is a 62 year old male with past medical history of DMII, developmental delay, hypothyroidism, CAD s/p PCI, CHF with EF 34%, Stage IV CKD who presents for 2 days of diarrhea and one episode of vomiting. End-stage renal disease; started on hemodialysis . Patient got 2 hemodialysis sessions so far. Hyperkalemia and acidosis resolved. Continue hemodialysis per nephrology. Diabetes; continue with regular insulin sliding scale. Diarrhea; CT abdomen and pelvis showed fat containing umbilical hernia. GI evaluation appreciated. Outpatient EGD and colonoscopy recommended. Continue renal diet as tolerated. History of coronary artery disease; continue aspirin and Plavix. Monitor for bleeding. mobile manager evaluation appreciated for outpatient hemodialysis arrangements. Dietitian evaluation appreciated. Health Proxy updated about the treatment plan and outpatient follow-up. Upon discharge the patient will follow up with PMD . 12/09/17 15:08
--- NOTE | 2017-12-09 18:22 | PN ---
Copied To: Kaity Helms MD Attending MD: Kaity Helms MD DATE: 12/09/2017 SUBJECTIVE: The patient was seen sitting in chair. He is awake, he is alert, he is comfortable. Cousin is at bedside. he does not appear to be in any kind of distress. He received dialysis yesterday. PHYSICAL EXAMINATION: GENERAL: Elderly male sitting in bed. VITAL SIGNS: Blood pressure 127/83, heart rate 76, respiratory rate 20, and temperature 98. HEENT: Normocephalic, atraumatic, positive pallor. NECK: Supple, no JVD. LUNGS: Bilateral equal air entry, bilateral equal expansion. CARDIAC: S1 and S2, regular rate and rhythm, no murmur, no rub. ABDOMEN: Obese, distended, soft, nontender, bowel sounds present. EXTREMITIES: No lower extremity edema. LABORATORY DATA: WBC 12.6, hemoglobin 14.8, and hematocrit 52. Sodium 140, potassium 4.7, chloride 104, CO2 of 25. BUN 57, creatinine 3.7. Glucose 106. Calcium 9.5, phosphorus 6.4, magnesium 1.7. Albumin 3.9. CURRENT MEDICATIONS: Aspirin, Coreg 25 b.i.d., Flomax, heparin, Lipitor, Pepcid, PhosLo, Plavix, Rocaltrol, Synthroid, and Zofran. ASSESSMENT: 1. Status post severe life-threatening hyperkalemia, resolved. 2. Acute kidney injury superimposed on chronic kidney disease stage V. 3. Coronary artery disease, congestive heart failure, dilated cardiomyopathy, decreased ejection fraction, automatic implantable cardioverter-defibrillator. 4. Severe hyperphosphatemia. 5. Nmk-lvmbioj-sdtlkpuac diabetes mellitus. 6. Suspect secondary hyperparathyroidism. PLAN: 1. No dialysis today. 2. 24-hour urine for protein and creatinine clearance. 3. May require outpatient chronic dialysis. 4. Continue phosphate binders. 5. Check intact PTH levels. 6. 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 7. Follow up 24-hour urine. Kaity Helms MD
[2017-12-10 07:58] LABS: BASO # 0.07 K/mm3 (0.0-2.0); BASO % 0.6 % (0.0-3.0); EOS # 0.9 (0.0-0.7); GRAN # 6.9 (1.4-6.5); GRAN % 63.1 % (50.0-68.0); HEMOGLOBIN 14.4 g/dL (14.0-18.0); LYMPH # 1.3 (1.2-3.4); LYMPH % 11.5 % (22.0-35.0); MEAN CELL VOLUME 89.5 fl (80.0-105.0); MEAN CORPUSCULAR HEMOGLOBIN 29.5 pg (25.0-35.0); MEAN PLATELET VOLUME 10.4 fl (7.0-11.0); MONO # 1.8 (0.1-0.6); MONO % 16.8 % (1.0-6.0); RBC 4.88 10^6/uL (3.5-6.1); RED CELL DISTRIBUTION WIDTH 13.8 % (11.5-14.5); WHITE BLOOD COUNT 10.9 10^3/ul (4.5-11.0)
[2017-12-10 08:31] LABS: ALB/GLOB RATIO 1.1 (1.1-1.8); ALBUMIN 3.8 g/dL (3.0-4.8); CALCIUM 9.9 mg/dL (8.4-10.5)
[2017-12-10] MEDS: Levothyroxine 125 MCG TAB PO SCH (10:39)
--- NOTE | 2017-12-10 11:49 | CP.PCM.PN ---
<Artis Vilchis - Last Filed: 12/10/17 11:50> Subjective - Date & Time of Evaluation Date of Evaluation: 12/10/17 Time of Evaluation: 11:48 - Subjective Subjective: Tolerating diet. No complaints. No acute overnight events. Denies abdominal pain. Objective - Vital Signs/Intake and Output Vital Signs (last 24 hours): Temp Pulse Resp BP Pulse Ox 98.4 F 79 20 111/74 97 12/10/17 08:24 12/10/17 10:39 12/10/17 08:24 12/10/17 10:39 12/10/17 08:24 Intake and Output: 12/10/17 12/10/17 06:59 18:59 Intake Total 360 Output Total 200 Balance 160 - Medications Medications: Current Medications Aspirin (Aspirin Chewable) 81 mg PO DAILY [facility] Last Admin: 12/10/17 10:39 Dose: 81 mg Atorvastatin Calcium (Lipitor) 20 mg PO HS [facility] Last Admin: 12/09/17 21:08 Dose: 20 mg Calcitriol (Rocaltrol) 0.25 mcg PO DAILY [facility] Last Admin: 12/10/17 10:39 Dose: 0.25 mcg Calcium Acetate (Phoslo) 1,334 mg PO AC [facility] Last Admin: 12/10/17 09:04 Dose: 1,334 mg Carvedilol (Coreg) 25 mg PO BID [facility] Last Admin: 12/10/17 10:39 Dose: 25 mg Clopidogrel Bisulfate (Plavix) 75 mg PO DAILY [facility] Last Admin: 12/10/17 10:39 Dose: 75 mg Famotidine (Pepcid) 40 mg PO HS [facility] Last Admin: 12/09/17 21:08 Dose: 40 mg Heparin Sodium (Porcine) (Heparin) 5,000 units SC Q12 [facility] PRN Reason: Protocol Last Admin: 12/10/17 10:39 Dose: 5,000 units Insulin Human Regular (Humulin R Med) 0 units SC Q6H [facility] PRN Reason: Protocol Last Admin: 12/09/17 21:06 Dose: Not Given Levothyroxine Sodium (Synthroid) 125 mcg PO DAILY [facility] Last Admin: 12/10/17 10:39 Dose: 125 mcg Ondansetron HCl (Zofran Inj) 4 mg IVP Q6H [facility] PRN Reason: Nausea/Vomiting Tamsulosin HCl (Flomax) 0.4 mg PO DAILY [facility] Last Admin: 12/10/17 10:39 Dose: 0.4 mg - Labs Labs: 12/10/17 07:30 12/10/17 07:30 PT 11.9 SECONDS (9.4-12.5) 12/07/17 09:20 INR 1.03 12/07/17 09:20 APTT 37.4 Seconds (25.1-36.5) H 12/07/17 09:20 - Constitutional Appears: No Acute Distress - Eye Exam Eye Exam: Normal appearance - ENT Exam ENT Exam: Mucous Membranes Moist - Respiratory Exam Respiratory Exam: Clear to Ausculation Bilateral, NORMAL BREATHING PATTERN - Cardiovascular Exam Cardiovascular Exam: +S1, +S2 - GI/Abdominal Exam GI & Abdominal Exam: Soft, Normal Bowel Sounds. absent: Tenderness - Extremities Exam Extremities Exam: Normal Inspection - Neurological Exam Neurological Exam: Alert, Awake - Psychiatric Exam Psychiatric exam: Normal Affect, Normal Mood Assessment and Plan - Assessment and Plan (Free Text) Assessment: 62 year old male with a past medical history significant for developmental delay , CHF s/p ICD placement, CAD s/p PCI, CKD stage 4, HTN, hypothyroidism, DM2, and BPH who presents with two days of nausea, NBNB vomiting, and diarrhea. Plan: -CT Abdomen/Pelvis showed fat containing umbilical hernia -Stool leukocyte negative -Stool electrolytes, stool culture, C. Diff serology and Chromogranin A, ECL pending -Renal Diet -Continue Pepcid HS -Continue Zofran PRN for N/V -DVT Prophylaxis GI Disposition: Patient will need EGD/Colonoscopy once medically optimized. This was discussed with the patient who is in agreement. <Cam,Kovil V - Last Filed: 12/10/17 21:55> Objective - Vital Signs/Intake and Output Vital Signs (last 24 hours): Temp Pulse Resp BP Pulse Ox 98.3 F 99 H 20 129/86 97 12/10/17 14:00 12/10/17 17:31 12/10/17 14:00 12/10/17 17:31 12/10/17 14:00 - Medications Medications: Current Medications Aspirin (Aspirin Chewable) 81 mg PO DAILY [facility] Last Admin: 12/10/17 10:39 Dose: 81 mg Atorvastatin Calcium (Lipitor) 20 mg PO [facility] Last Admin: 12/10/17 21:11 Dose: 20 mg Calcitriol (Rocaltrol) 0.25 mcg PO DAILY [facility] Last Admin: 12/10/17 10:39 Dose: 0.25 mcg Calcium Acetate (Phoslo) 1,334 mg PO AC [facility] Last Admin: 12/10/17 17:31 Dose: 1,334 mg Carvedilol (Coreg) 25 mg PO BID [facility] Last Admin: 12/10/17 17:31 Dose: 25 mg Clopidogrel Bisulfate (Plavix) 75 mg PO DAILY [facility] Last Admin: 12/10/17 10:39 Dose: 75 mg Famotidine (Pepcid) 40 mg PO HS [facility] Last Admin: 12/10/17 21:11 Dose: 40 mg Heparin Sodium (Porcine) (Heparin) 5,000 units SC Q12 [facility] PRN Reason: Protocol Last Admin: 12/10/17 21:11 Dose: 5,000 units Insulin Human Regular (Humulin R Med) 0 units SC Q6H [facility] PRN Reason: Protocol Last Admin: 12/10/17 21:16 Dose: Not Given Levothyroxine Sodium (Synthroid) 125 mcg PO DAILY [facility] Last Admin: 12/10/17 10:39 Dose: 125 mcg Ondansetron HCl (Zofran Inj) 4 mg IVP Q6H PRN PRN Reason: Nausea/Vomiting Tamsulosin HCl (Flomax) 0.4 mg PO DAILY [facility] Last Admin: 12/10/17 10:39 Dose: 0.4 mg - Labs Labs: 12/10/17 07:30 12/10/17 07:30 PT 11.9 SECONDS (9.4-12.5) 12/07/17 09:20 INR 1.03 12/07/17 09:20 APTT 37.4 Seconds (25.1-36.5) H 12/07/17 09:20 Attending/Attestation - Attestation I have personally seen and examined this patient.: Yes I have fully participated in the care of the patient.: Yes I have reviewed all pertinent clinical information, including history, physical exam and plan: Yes Notes (Text): This is an addendum to GI progress report dictated by the GI Fellow.The patient was seen and examined earlier. Medical records, lab studies, imagings were reviewed. Last 24 hours events reviewed. Agreed with the above treatment plan as outlined in GI Fellow 's notes with the addition of the following Tolerating the diet discussed with the patient's home health occupational therapist She mentioned that diarrhea is very few recurrence Would benefit from EGD, colonoscopy to further evaluate this episodes of infrequent diarrhea 12/10/17 21:53
[2017-12-10] MEDS: Insulin Reg-MEDIUM-Coverage SC SCH ×4 (12:14→21:16)
--- NOTE | 2017-12-10 13:50 | CP.PCM.PN ---
<Ovidio Hollingsworth - Last Filed: 12/10/17 15:29> Subjective - Date & Time of Evaluation Date of Evaluation: 12/10/17 Time of Evaluation: 07:00 - Subjective Subjective: Ovidio Hollingsworth PGY1 Medicine Progress Note for Dr. Rahman Patient was seen and examined at bedside this morning. Patient says he feels well. Denies cp, sob, abdominal pain, nausea, vomiting, diarrhea, fevers, chills. No overnight changes. Vital signs are stable. Appetite is good and patient has no bowel/bladder changes. A full 12 point ROS was conducted and unremarkable except as stated above. Objective - Vital Signs/Intake and Output Vital Signs (last 24 hours): Temp Pulse Resp BP Pulse Ox 98.4 F 79 20 111/74 97 12/10/17 08:24 12/10/17 10:39 12/10/17 08:24 12/10/17 10:39 12/10/17 08:24 Intake and Output: 12/10/17 12/10/17 06:59 18:59 Intake Total 360 Output Total 200 Balance 160 - Medications Medications: Current Medications Aspirin (Aspirin Chewable) 81 mg PO DAILY [facility] Last Admin: 12/10/17 10:39 Dose: 81 mg Atorvastatin Calcium (Lipitor) 20 mg PO HS [facility] Last Admin: 12/09/17 21:08 Dose: 20 mg Calcitriol (Rocaltrol) 0.25 mcg PO DAILY [facility] Last Admin: 12/10/17 10:39 Dose: 0.25 mcg Calcium Acetate (Phoslo) 1,334 mg PO AC [facility] Last Admin: 12/10/17 12:13 Dose: 1,334 mg Carvedilol (Coreg) 25 mg PO BID [facility] Last Admin: 12/10/17 10:39 Dose: 25 mg Clopidogrel Bisulfate (Plavix) 75 mg PO DAILY [facility] Last Admin: 12/10/17 10:39 Dose: 75 mg Famotidine (Pepcid) 40 mg PO HS [facility] Last Admin: 12/09/17 21:08 Dose: 40 mg Heparin Sodium (Porcine) (Heparin) 5,000 units SC Q12 [facility] PRN Reason: Protocol Last Admin: 12/10/17 10:39 Dose: 5,000 units Insulin Human Regular (Humulin R Med) 0 units SC Q6H [facility] PRN Reason: Protocol Last Admin: 12/10/17 12:14 Dose: 3 unit Levothyroxine Sodium (Synthroid) 125 mcg PO DAILY [facility] Last Admin: 12/10/17 10:39 Dose: 125 mcg Ondansetron HCl (Zofran Inj) 4 mg IVP Q6H PRN PRN Reason: Nausea/Vomiting Tamsulosin HCl (Flomax) 0.4 mg PO DAILY [facility] Last Admin: 12/10/17 10:39 Dose: 0.4 mg - Labs Labs: 12/10/17 07:30 12/10/17 07:30 PT 11.9 SECONDS (9.4-12.5) 12/07/17 09:20 INR 1.03 12/07/17 09:20 APTT 37.4 Seconds (25.1-36.5) H 12/07/17 09:20 - Constitutional Appears: Well, No Acute Distress - Head Exam Head Exam: ATRAUMATIC, NORMAL INSPECTION, NORMOCEPHALIC - Eye Exam Eye Exam: EOMI, Normal appearance, PERRL - ENT Exam ENT Exam: Mucous Membranes Moist, Normal Exam - Neck Exam Neck Exam: Full ROM, Normal Inspection. absent: Lymphadenopathy - Respiratory Exam Respiratory Exam: Clear to Ausculation Bilateral, NORMAL BREATHING PATTERN. absent: Rales, Rhonchi, Wheezes - Cardiovascular Exam Cardiovascular Exam: REGULAR RHYTHM, +S1, +S2. absent: Murmur - GI/Abdominal Exam GI & Abdominal Exam: Soft, Normal Bowel Sounds. absent: Tenderness - Extremities Exam Extremities Exam: Full ROM, Normal Capillary Refill, Normal Inspection. absent : Joint Swelling, Pedal Edema - Back Exam Back Exam: NORMAL INSPECTION - Neurological Exam Neurological Exam: Alert, Awake, CN II-XII Intact, Oriented x3 Neuro motor strength exam: Left Upper Extremity: 5, Right Upper Extremity: 5, Left Lower Extremity: 5, Right Lower Extremity: 5 - Psychiatric Exam Psychiatric exam: Normal Affect, Normal Mood - Skin Skin Exam: Dry, Intact, Normal Color, Warm Assessment and Plan - Assessment and Plan (Free Text) Assessment: Patient is a 62 year old male with a past medical history significant for Stage IV CKD (not on HD), CAD with AICD, DM II, and developmental delay who presented to the ED on 12/07 for 2 days of intractable diarrhea, nausea, and one episode of vomiting. He was found to be hyperkalemic, uremic, and hypermagnesemic in the ED. Patient required emergent dialysis. He had placement of right IJ tunneled dialysis catheter on 12/07. Patient is tolerating dialysis and was stabilized for transfer to the floor. Plan: ESRD on HD - As per nephro, no dialysis yesterday. Patient may require outpatient dialysis. Social work eval pending. - BUN/Cr is 62/3.9 today - f/u PTH level - c/w Phoslo and Rocaltrol - R-IJ tunneled dialysis catheter was placed on 12/07 - Nephrology consulted, recs appreciated. - Holding metformin because of renal failure Hyperkalemia - resolved - K is now 4.4, stable - Initial K of 7.0 in ED - No acute EKG changes Vomiting and Diarrhea with History of Periumbilical Hernia - resolved - Reducible hernia, no acute intervention is warranted at this time - As per GI, patient may receive endoscopy or colonoscopy when he is medically optimized, preferably as outpatient. - CT abdomen and pelvis (12/07): fat containing umbilical hernia - GI consulted, recs appreciated. CAD - c/w aspirin and plavix - c/w Atorvastatin 20 mg PO HS DM II - f/u A1c - ISS - accuchecks Hypertension - Currently normotensive - c/w carvedilol 25 mg BID Hypothyroidism - c/w synthroid 125 mcg daily PPx: - DVT ppx: Heparin SC - GI ppx: Pepcid Social Work eval: f/u recs for outpatient HD. Dispo: Continue to monitor patient on the floor. Pending social work eval for outpatient HD. Case reviewed and discussed with attending physician, Dr. Rahman <Cecile Rahman - Last Filed: 12/10/17 17:11> Objective - Vital Signs/Intake and Output Vital Signs (last 24 hours): Temp Pulse Resp BP Pulse Ox 98.3 F 70 20 103/70 97 12/10/17 14:00 12/10/17 14:00 12/10/17 14:00 12/10/17 14:00 12/10/17 14:00 Intake and Output: 12/10/17 12/10/17 06:59 18:59 Intake Total 360 Output Total 200 Balance 160 - Medications Medications: Current Medications Aspirin (Aspirin Chewable) 81 mg PO DAILY [facility] Last Admin: 12/10/17 10:39 Dose: 81 mg Atorvastatin Calcium (Lipitor) 20 mg PO HS [facility] Last Admin: 12/09/17 21:08 Dose: 20 mg Calcitriol (Rocaltrol) 0.25 mcg PO DAILY [facility] Last Admin: 12/10/17 10:39 Dose: 0.25 mcg Calcium Acetate (Phoslo) 1,334 mg PO AC [facility] Last Admin: 12/10/17 12:13 Dose: 1,334 mg Carvedilol (Coreg) 25 mg PO BID [facility] Last Admin: 12/10/17 10:39 Dose: 25 mg Clopidogrel Bisulfate (Plavix) 75 mg PO DAILY [facility] Last Admin: 12/10/17 10:39 Dose: 75 mg Famotidine (Pepcid) 40 mg PO HS [facility] Last Admin: 12/09/17 21:08 Dose: 40 mg Heparin Sodium (Porcine) (Heparin) 5,000 units SC Q12 [facility] PRN Reason: Protocol Last Admin: 12/10/17 10:39 Dose: 5,000 units Insulin Human Regular (Humulin R Med) 0 units SC Q6H [facility] PRN Reason: Protocol Last Admin: 12/10/17 12:14 Dose: 3 unit Levothyroxine Sodium (Synthroid) 125 mcg PO DAILY [facility] Last Admin: 12/10/17 10:39 Dose: 125 mcg Ondansetron HCl (Zofran Inj) 4 mg IVP Q6H PRN PRN Reason: Nausea/Vomiting Tamsulosin HCl (Flomax) 0.4 mg PO DAILY [facility] Last Admin: 12/10/17 10:39 Dose: 0.4 mg - Labs Labs: 12/10/17 07:30 12/10/17 07:30 PT 11.9 SECONDS (9.4-12.5) 12/07/17 09:20 INR 1.03 12/07/17 09:20 APTT 37.4 Seconds (25.1-36.5) H 12/07/17 09:20 Attending/Attestation - Attestation I have personally seen and examined this patient.: Yes I have fully participated in the care of the patient.: Yes I have reviewed all pertinent clinical information, including history, physical exam and plan: Yes Notes (Text): 12/10/17 17:09 Attending note; Patient seen and examined with resident. Denies any nausea, vomiting. Denies any abdominal discomfort, diarrhea. Tolerating diet well. Right IJ permacath in place. no bleeding noted. Patient is a 62 year old male with past medical history of DMII, developmental delay, hypothyroidism, CAD s/p PCI, CHF with EF 34%, Stage IV CKD who presents for 2 days of diarrhea and one episode of vomiting. End-stage renal disease; started on hemodialysis . Patient got 2 hemodialysis sessions so far. Hyperkalemia and acidosis resolved. Continue hemodialysis per nephrology. Diabetes; continue with regular insulin sliding scale. Diarrhea; CT abdomen and pelvis showed fat containing umbilical hernia. GI evaluation appreciated. EGD and colonoscopy recommended after stabilization. Continue renal diet. History of coronary artery disease; continue aspirin and Plavix. Monitor for bleeding. marketing communication manager evaluation appreciated for outpatient hemodialysis arrangements. Dietitian evaluation appreciated. Upon discharge the patient will follow up with PMD .
[2017-12-11 08:58] LABS: BASO # 0.12 K/mm3 (0.0-2.0); BASO % 0.8 % (0.0-3.0); EOS # 1.1 (0.0-0.7); EOS % 7.3 % (1.5-5.0); GRAN # 10.5 (1.4-6.5); HEMOGLOBIN 15.8 g/dL (14.0-18.0); LYMPH % 6.8 % (22.0-35.0); MEAN CELL VOLUME 89.7 fl (80.0-105.0); MEAN CORPUSCULAR HEMOGLOBIN 30.2 pg (25.0-35.0); MEAN CORPUSCULAR HGB CONC 33.7 g/dl (31.0-37.0); MEAN PLATELET VOLUME 11.1 fl (7.0-11.0); MONO # 2.1 (0.1-0.6); MONO % 14.1 % (1.0-6.0); RBC 5.23 10^6/uL (3.5-6.1); RED CELL DISTRIBUTION WIDTH 13.5 % (11.5-14.5); WHITE BLOOD COUNT 14.8 10^3/ul (4.5-11.0)
[2017-12-11 09:06] LABS: ALB/GLOB RATIO 0.9 (1.1-1.8); ALBUMIN 4.1 g/dL (3.0-4.8); CALCIUM 10.8 mg/dL (8.4-10.5)
[2017-12-11] MEDS: Insulin Reg-MEDIUM-Coverage SC SCH ×3 (11:09→21:13)
[2017-12-11] MEDS: Levothyroxine 125 MCG TAB PO SCH (11:16)
--- NOTE | 2017-12-11 13:47 | CP.PCM.PN ---
<Ovidio Hollingsworth - Last Filed: 12/11/17 14:05> Subjective - Date & Time of Evaluation Date of Evaluation: 12/11/17 Time of Evaluation: 07:00 - Subjective Subjective: Ovidio Hollingsworth PGY1 Medicine Progress Note for Dr. Rahman Patient was seen and examined at bedside this morning. Patient was resting comfortably in chair. Vital signs stable. No overnight events. Denies cp, sob, abdominal pain, n/v/d. A full 12 point ROS was conducted and unremarkable except as stated above. Objective - Vital Signs/Intake and Output Vital Signs (last 24 hours): Temp Pulse Resp BP Pulse Ox 97.6 F 69 20 124/88 97 12/11/17 08:30 12/11/17 11:17 12/11/17 08:30 12/11/17 11:17 12/11/17 08:30 - Medications Medications: Current Medications Aspirin (Aspirin Chewable) 81 mg PO DAILY [facility] Last Admin: 12/11/17 11:17 Dose: 81 mg Atorvastatin Calcium (Lipitor) 20 mg PO HS [facility] Last Admin: 12/10/17 21:11 Dose: 20 mg Calcitriol (Rocaltrol) 0.25 mcg PO DAILY [facility] Last Admin: 12/11/17 11:17 Dose: 0.25 mcg Calcium Acetate (Phoslo) 1,334 mg PO AC [facility] Last Admin: 12/11/17 11:16 Dose: 1,334 mg Carvedilol (Coreg) 25 mg PO BID [facility] Last Admin: 12/11/17 11:17 Dose: 25 mg Clopidogrel Bisulfate (Plavix) 75 mg PO DAILY [facility] Last Admin: 12/11/17 11:17 Dose: 75 mg Famotidine (Pepcid) 40 mg PO HS [facility] Last Admin: 12/10/17 21:11 Dose: 40 mg Heparin Sodium (Porcine) (Heparin) 5,000 units SC Q12 [facility] PRN Reason: Protocol Last Admin: 12/11/17 11:16 Dose: 5,000 units Insulin Human Regular (Humulin R Med) 0 units SC Q6H [facility] PRN Reason: Protocol Last Admin: 12/11/17 11:09 Dose: Not Given Levothyroxine Sodium (Synthroid) 125 mcg PO DAILY [facility] Last Admin: 12/11/17 11:16 Dose: 125 mcg Ondansetron HCl (Zofran Inj) 4 mg IVP Q6H PRN PRN Reason: Nausea/Vomiting Tamsulosin HCl (Flomax) 0.4 mg PO DAILY [facility] Last Admin: 12/11/17 11:17 Dose: 0.4 mg - Labs Labs: 12/11/17 08:30 12/11/17 08:30 PT 11.9 SECONDS (9.4-12.5) 12/07/17 09:20 INR 1.03 12/07/17 09:20 APTT 37.4 Seconds (25.1-36.5) H 12/07/17 09:20 - Constitutional Appears: Well, No Acute Distress - Head Exam Head Exam: ATRAUMATIC, NORMAL INSPECTION, NORMOCEPHALIC - Eye Exam Eye Exam: EOMI, Normal appearance, PERRL Pupil Exam: NORMAL ACCOMODATION, PERRL - ENT Exam ENT Exam: Mucous Membranes Moist, Normal Exam - Neck Exam Neck Exam: Full ROM, Normal Inspection. absent: Lymphadenopathy - Respiratory Exam Respiratory Exam: Clear to Ausculation Bilateral, NORMAL BREATHING PATTERN - Cardiovascular Exam Cardiovascular Exam: REGULAR RHYTHM, +S1, +S2. absent: Murmur - GI/Abdominal Exam GI & Abdominal Exam: Soft, Normal Bowel Sounds. absent: Tenderness - Extremities Exam Extremities Exam: Full ROM, Normal Capillary Refill, Normal Inspection. absent : Joint Swelling, Pedal Edema - Back Exam Back Exam: NORMAL INSPECTION - Neurological Exam Neurological Exam: Alert, Awake, Oriented x3 Neuro motor strength exam: Left Upper Extremity: 5, Right Upper Extremity: 5, Left Lower Extremity: 5, Right Lower Extremity: 5 - Psychiatric Exam Psychiatric exam: Normal Affect, Normal Mood - Skin Skin Exam: Dry, Intact, Normal Color, Warm Assessment and Plan - Assessment and Plan (Free Text) Assessment: Patient is a 62 year old male with a past medical history significant for Stage IV CKD (not on HD), CAD with AICD, DM II, and developmental delay who presented to the ED on 12/07 for 2 days of intractable diarrhea, nausea, and one episode of vomiting. He was found to be hyperkalemic, uremic, and hypermagnesemic in the ED. Patient required emergent dialysis. He had placement of right IJ tunneled dialysis catheter on 12/07. Patient is tolerating dialysis and was stabilized for transfer to the floor. Patient is pending evaluation for outpatient HD. Plan: ESRD on HD - Patient pending outpatient dialysis. - BUN/Cr is 63/3.8 today (downtrending) - f/u PTH level - c/w Phoslo and Rocaltrol - Urine total protein elevated - R-IJ tunneled dialysis catheter was placed on 12/07 - Nephrology consulted, recs appreciated. - Holding metformin because of renal failure Hyperkalemia - resolved - K is now 4.7 - Initial K of 7.0 in ED - No acute EKG changes Vomiting and Diarrhea with History of Periumbilical Hernia - resolved - Reducible hernia, no acute intervention is warranted at this time - As per GI, patient may receive endoscopy or colonoscopy when he is medically optimized, preferably as outpatient. - CT abdomen and pelvis (12/07): fat containing umbilical hernia - GI consulted, recs appreciated. CAD - c/w aspirin and plavix - c/w Atorvastatin 20 mg PO HS DM II - f/u A1c - ISS - accuchecks Hypertension - Currently normotensive - c/w carvedilol 25 mg BID Hypothyroidism - c/w synthroid 125 mcg daily PPx: - DVT ppx: Heparin SC - GI ppx: Pepcid Social Work eval: f/u recs for outpatient HD. Dispo: Continue to monitor patient on the floor. Pending social work eval for outpatient HD. Case reviewed and discussed with attending physician, Dr. Rahman <Cecile Rahman - Last Filed: 12/11/17 14:52> Objective - Vital Signs/Intake and Output Vital Signs (last 24 hours): Temp Pulse Resp BP Pulse Ox 97.6 F 69 20 124/88 97 12/11/17 08:30 12/11/17 11:17 12/11/17 08:30 12/11/17 11:17 12/11/17 08:30 - Medications Medications: Current Medications Aspirin (Aspirin Chewable) 81 mg PO DAILY [facility] Last Admin: 12/11/17 11:17 Dose: 81 mg Atorvastatin Calcium (Lipitor) 20 mg PO HS [facility] Last Admin: 12/10/17 21:11 Dose: 20 mg Calcitriol (Rocaltrol) 0.25 mcg PO DAILY [facility] Last Admin: 12/11/17 11:17 Dose: 0.25 mcg Calcium Acetate (Phoslo) 1,334 mg PO AC [facility] Last Admin: 12/11/17 11:16 Dose: 1,334 mg Carvedilol (Coreg) 25 mg PO BID [facility] Last Admin: 12/11/17 11:17 Dose: 25 mg Clopidogrel Bisulfate (Plavix) 75 mg PO DAILY [facility] Last Admin: 12/11/17 11:17 Dose: 75 mg Famotidine (Pepcid) 40 mg PO HS [facility] Last Admin: 12/10/17 21:11 Dose: 40 mg Heparin Sodium (Porcine) (Heparin) 5,000 units SC Q12 [facility] PRN Reason: Protocol Last Admin: 12/11/17 11:16 Dose: 5,000 units Insulin Human Regular (Humulin R Med) 0 units SC Q6H [facility] PRN Reason: Protocol Last Admin: 12/11/17 11:09 Dose: Not Given Levothyroxine Sodium (Synthroid) 125 mcg PO DAILY [facility] Last Admin: 12/11/17 11:16 Dose: 125 mcg Ondansetron HCl (Zofran Inj) 4 mg IVP Q6H PRN PRN Reason: Nausea/Vomiting Tamsulosin HCl (Flomax) 0.4 mg PO DAILY [facility] Last Admin: 12/11/17 11:17 Dose: 0.4 mg - Labs Labs: 12/11/17 08:30 12/11/17 08:30 PT 11.9 SECONDS (9.4-12.5) 12/07/17 09:20 INR 1.03 12/07/17 09:20 APTT 37.4 Seconds (25.1-36.5) H 12/07/17 09:20 Attending/Attestation - Attestation I have personally seen and examined this patient.: Yes I have fully participated in the care of the patient.: Yes I have reviewed all pertinent clinical information, including history, physical exam and plan: Yes Notes (Text): 12/11/17 14:50 Attending note; Patient seen and examined with resident. Denies any nausea, vomiting. Denies any abdominal discomfort, diarrhea. Tolerating diet well. denies any fevers, chills. Right IJ permacath in place. no bleeding noted. Patient is a 62 year old male with past medical history of DMII, developmental delay, hypothyroidism, CAD s/p PCI, CHF with EF 34%, Stage IV CKD who presents for 2 days of diarrhea and vomiting. End-stage renal disease; started on hemodialysis . Patient got 2 hemodialysis sessions so far. Hyperkalemia and acidosis resolved. Continue hemodialysis per nephrology. creatinine is 3.8. Diabetes; continue with regular insulin sliding scale. Diarrhea; CT abdomen and pelvis showed fat containing umbilical hernia. GI evaluation appreciated. EGD and colonoscopy recommended after stabilization. Continue renal diet. History of coronary artery disease; continue aspirin and Plavix. Monitor for bleeding. manager center evaluation appreciated for outpatient hemodialysis arrangements. Dietitian evaluation appreciated. Upon discharge the patient will follow up with PMD . 12/11/17 14:51
--- NOTE | 2017-12-11 18:15 | PN ---
DATE: 12/10/2017 SUBJECTIVE: The patient is seen lying in bed. He is awake, he is alert, he is comfortable. He does not appear to be in any kind of distress. PHYSICAL EXAMINATION: VITAL SIGNS: Blood pressure 114/71, heart rate 66, respiratory rate 18, temperature 98.2. HEENT: Normocephalic, atraumatic, positive pallor. NECK: Supple, no JVD. LUNGS: Bilateral equal air entry, bilateral equal expansion. CARDIAC: S1 and S2, regular rate rhythm. No murmur, no rub. ABDOMEN: Obese, distended, soft, nontender, bowel sounds present. EXTREMITIES: No lower extremity edema. INTAKE AND OUTPUT: Not charted. LABORATORY DATA: WBC 10.9, hemoglobin 14, hematocrit 43, platelets 253. Sodium 141, potassium 4.4, chloride 106, CO2 of 25, BUN 62, creatinine 3.9, glucose 108, calcium 9.9, phosphorus 4.6, magnesium 1.9, AST 20, ALT 12, albumin 3.8. CURRENT MEDICATIONS: List reviewed. ASSESSMENT: 1. Acute kidney injury superimposed on chronic kidney disease stage V, resolved. 2. Severe hyperkalemia, resolved. 3. Status post dialysis x2. 4. Noninsulin-dependent diabetes mellitus. 5. Hypertension. 6. Congestive heart failure, cardiomyopathy, decreased ejection fraction. PLAN: 1. Monitor K and creatinine. 2. Follow up 24-hour urine. 3. Continue current management. 4. Hold dialysis today. Kaity Helms MD
[2017-12-12 08:02] LABS: BASO # 0.08 K/mm3 (0.0-2.0); BASO % 0.6 % (0.0-3.0); EOS % 7.4 % (1.5-5.0); GRAN # 9.4 (1.4-6.5); GRAN % 70.7 % (50.0-68.0); HEMOGLOBIN 15.1 g/dL (14.0-18.0); LYMPH # 1.7 (1.2-3.4); LYMPH % 12.6 % (22.0-35.0); MEAN CELL VOLUME 89.2 fl (80.0-105.0); MEAN CORPUSCULAR HEMOGLOBIN 29.5 pg (25.0-35.0); MEAN CORPUSCULAR HGB CONC 33.1 g/dl (31.0-37.0); MEAN PLATELET VOLUME 11.2 fl (7.0-11.0); MONO # 1.2 (0.1-0.6); MONO % 8.7 % (1.0-6.0); RBC 5.11 10^6/uL (3.5-6.1); RED CELL DISTRIBUTION WIDTH 13.4 % (11.5-14.5); WHITE BLOOD COUNT 13.3 10^3/ul (4.5-11.0)
[2017-12-12 08:23] LABS: ALBUMIN 4.2 g/dL (3.0-4.8); CALCIUM 10.9 mg/dL (8.4-10.5)
[2017-12-12] MEDS: Levothyroxine 125 MCG TAB PO SCH (09:19)
[2017-12-12] MEDS: Insulin Reg-MEDIUM-Coverage SC SCH ×2 (09:20→19:01)
[2017-12-12 13:15] LABS: URINE CREATININE 66.7 mg/dL
--- NOTE | 2017-12-12 15:50 | PN ---
Copied To: Kaity Helms MD Attending MD: Kaity Helms MD DATE: 12/12/2017 SUBJECTIVE: The patient is seen lying in bed. He is comfortable. He does not appear to be in any kind of distress. PHYSICAL EXAMINATION: VITAL SIGNS: Blood pressure 138/90, heart rate 74, respiratory rate 20, and temperature 98.2. HEENT: Normocephalic, atraumatic, positive pallor. NECK: Supple, no JVD. LUNGS: Bilateral equal air entry, bilateral equal expansion. CARDIAC: S1 and S2, regular rate and rhythm, no murmur, no rub. ABDOMEN: Obese, distended, soft, nontender, and bowel sounds present. EXTREMITIES: No lower extremity edema. LABORATORY DATA: WBC 13.3, hemoglobin 15, hematocrit 45.6, and platelets 273. Sodium 141, potassium 4.8, chloride 107, CO2 of 22. BUN 69, creatinine 4.1. Glucose 131. Calcium 10.9, phosphorus 4, and magnesium 1.9. Creatinine clearance 13 mL/min. CURRENT MEDICATIONS: Aspirin, Coreg 25 b.i.d., Flomax, insulin, Lipitor 20, Pepcid, calcium acetate, Plavix, Rocaltrol, and Synthroid. ASSESSMENT: 1. Acute kidney injury superimposed on chronic kidney disease stage V, now end-stage renal disease, will require chronic dialysis at least two times per week. 2. Hyperkalemia, life-threatening, resolved. 3. Secondary hyperparathyroidism. 4. Coronary artery disease/congestive heart failure/cardiomyopathy/decreased ejection fraction. 5. [id number] diabetes mellitus. 6. Hypertension. 7. Mental disability. PLAN: 1. At this time, his creatinine clearance is 13 mL/min, the patient will require outpatient dialysis. He should be scheduled for outpatient dialysis two times per week. 2. Make arrangement for permanent access. 3. driver utility worker to arrange for outpatient dialysis two times per week. 4. Change PhosLo to one tablet 3 times a day. 5. Okay to discontinue oral calcitriol. Kaity Helms MD
--- NOTE | 2017-12-12 16:36 | CP.PCM.PN ---
<Lavonne Mac - Last Filed: 12/12/17 18:52> Subjective - Date & Time of Evaluation Date of Evaluation: 12/12/17 Time of Evaluation: 07:05 - Subjective Subjective: PGY-1 Lavonne Mac D.O. Medicine progress note for Dr. Snider's service: Patient was seen and examined this morning. No over night events reported. Patient is sitting up in a chair, eating breakfast. He denies any acute complaints. He states he is walking around without difficulty- denies SOB, chest pain. His nausea, vomiting, and diarrhea have resolved. Objective - Vital Signs/Intake and Output Vital Signs (last 24 hours): Temp Pulse Resp BP Pulse Ox 98.2 F 74 20 138/90 97 12/12/17 06:00 12/12/17 09:20 12/12/17 06:00 12/12/17 09:20 12/12/17 06:00 Intake and Output: 12/12/17 12/12/17 06:59 18:59 Intake Total 480 Balance 480 - Medications Medications: Current Medications Aspirin (Aspirin Chewable) 81 mg PO DAILY [facility] Last Admin: 12/12/17 09:19 Dose: 81 mg Atorvastatin Calcium (Lipitor) 20 mg PO HS [facility] Last Admin: 12/11/17 21:13 Dose: 20 mg Calcium Acetate (Phoslo) 667 mg PO AC [facility] Carvedilol (Coreg) 25 mg PO BID [facility] Last Admin: 12/12/17 09:20 Dose: 25 mg Clopidogrel Bisulfate (Plavix) 75 mg PO DAILY [facility] Last Admin: 12/12/17 09:19 Dose: 75 mg Famotidine (Pepcid) 40 mg PO HS [facility] Last Admin: 12/11/17 21:13 Dose: 40 mg Heparin Sodium (Porcine) (Heparin) 5,000 units SC Q12 [facility] PRN Reason: Protocol Last Admin: 12/12/17 09:20 Dose: 5,000 units Insulin Human Regular (Humulin R Med) 0 units SC Q6H [facility] PRN Reason: Protocol Last Admin: 12/12/17 09:20 Dose: Not Given Levothyroxine Sodium (Synthroid) 125 mcg PO DAILY [facility] Last Admin: 12/12/17 09:19 Dose: 125 mcg Ondansetron HCl (Zofran Inj) 4 mg IVP Q6H PRN PRN Reason: Nausea/Vomiting Tamsulosin HCl (Flomax) 0.4 mg PO DAILY [facility] Last Admin: 12/12/17 09:19 Dose: 0.4 mg - Labs Labs: 12/12/17 07:30 12/12/17 07:30 PT 11.9 SECONDS (9.4-12.5) 12/07/17 09:20 INR 1.03 12/07/17 09:20 APTT 37.4 Seconds (25.1-36.5) H 12/07/17 09:20 - Constitutional Appears: Non-toxic, No Acute Distress - Head Exam Head Exam: ATRAUMATIC, NORMAL INSPECTION - Eye Exam Eye Exam: EOMI, Normal appearance - ENT Exam ENT Exam: Mucous Membranes Moist, Normal Exam - Neck Exam Neck Exam: Normal Inspection - Respiratory Exam Respiratory Exam: Clear to Ausculation Bilateral, NORMAL BREATHING PATTERN - Cardiovascular Exam Cardiovascular Exam: REGULAR RHYTHM, +S1, +S2 - GI/Abdominal Exam GI & Abdominal Exam: Soft, Normal Bowel Sounds. absent: Tenderness - Rectal Exam Rectal Exam: Deferred - Extremities Exam Extremities Exam: Normal Inspection - Back Exam Back Exam: NORMAL INSPECTION - Neurological Exam Neurological Exam: Alert, Awake, CN II-XII Intact, Oriented x3 Neuro motor strength exam: Left Upper Extremity: 5, Right Upper Extremity: 5, Left Lower Extremity: 5, Right Lower Extremity: 5 - Psychiatric Exam Psychiatric exam: Normal Affect, Normal Mood - Skin Skin Exam: Dry, Intact, Normal Color, Warm Assessment and Plan - Assessment and Plan (Free Text) Assessment: Patient is a 62 year old male with PMH of stage 4 CKD (not on HD), CAD with AICD, T2DM, and developmental delay who presented to the ED on 12/07 for 2 days of intractable diarrhea, nausea, and one episode of vomiting. Patient lives in supervised housing in his own apartment. He was found to be hyperkalemic, uremic, and hypermagnesemic in the ED and required emergent dialysis and management in the ICU. He had placement of right IJ tunneled dialysis catheter on 12/07. Patient is tolerating dialysis and was transferred to med/surg. Patient will require HD 2x/ week as outpatient. Plan: ESRD- newly on HD this admission, patient sees Dr. 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 - Ca 10.9 - PTH 298 - Continue HD Vomiting and Diarrhea, resolved- underlying periumbilicalhHernia - Reducible hernia, no acute intervention is warranted at this time - CT abdomen and pelvis (12/07): fat containing umbilical hernia - Zofran 4 mg IV Q6H PRN - GI consulted (Cam)- endoscopy/colonoscopy when he is medically opt imized, preferably as outpatient CAD - ASA 81 mg PO daily - Plavix 75 mg PO daily - Lipitor 20 mg PO QHS T2DM - A1c 7.2 - Discontinued metformin due to CKD - ISS medium - Hypoglycemic protocol - Accuchecks ACHS Hypertension - Carvedilol 25 mg PO BID Hypothyroidism - Synthroid 125 mcg PO daily IVF: not indicated Diet: renal DVT ppx: Heparin 5000 units SC Q12H GI ppx: Pepcid 40 mg PO QHS Code status: full code (LAUREN waller) Dispo: Pending HD placement. Case discussed with attending, Dr. Snider. <Izabella Snider R - Last Filed: 12/13/17 17:08> Objective - Vital Signs/Intake and Output Vital Signs (last 24 hours): Temp Pulse Resp BP Pulse Ox 98 F 69 20 136/88 97 12/13/17 06:00 12/13/17 06:00 12/13/17 06:00 12/13/17 06:00 12/13/17 06:00 Intake and Output: 12/13/17 12/13/17 06:59 18:59 Intake Total 660 Output Total 600 Balance 60 - Medications Medications: Current Medications Aspirin (Aspirin Chewable) 81 mg PO DAILY [facility] Last Admin: 12/12/17 09:19 Dose: 81 mg Atorvastatin Calcium (Lipitor) 20 mg PO [facility] Last Admin: 12/12/17 21:10 Dose: 20 mg Carvedilol (Coreg) 25 mg PO BID [facility] Last Admin: 12/12/17 17:28 Dose: 25 mg Clopidogrel Bisulfate (Plavix) 75 mg PO DAILY [facility] Last Admin: 12/12/17 09:19 Dose: 75 mg Famotidine (Pepcid) 40 mg PO HS [facility] Last Admin: 12/12/17 21:10 Dose: 40 mg Heparin Sodium (Porcine) (Heparin) 5,000 units SC Q12 [facility]; Protocol Last Admin: 12/12/17 21:10 Dose: Not Given Heparin Sodium (Porcine) (Heparin) 5,000 units IVP STAT PRN; Protocol PRN Reason: to prevent clotting during HD Stop: 01/18/18 23:00 Insulin Human Regular (Humulin R Med) 0 units SC ACHS [facility]; Protocol Last Admin: 12/13/17 06:08 Dose: Not Given Levothyroxine Sodium (Synthroid) 125 mcg PO DAILY [facility] Last Admin: 12/12/17 09:19 Dose: 125 mcg Ondansetron HCl (Zofran Inj) 4 mg IVP Q6H PRN PRN Reason: Nausea/Vomiting Tamsulosin HCl (Flomax) 0.4 mg PO DAILY [facility] Last Admin: 12/12/17 09:19 Dose: 0.4 mg - Labs Labs: 12/13/17 07:30 12/13/17 07:30 PT 11.9 SECONDS (9.4-12.5) 12/07/17 09:20 INR 1.03 12/07/17 09:20 APTT 37.4 Seconds (25.1-36.5) H 12/07/17 09:20 Attending/Attestation - Attestation I have personally seen and examined this patient.: Yes I have fully participated in the care of the patient.: Yes I have reviewed all pertinent clinical information, including history, physical exam and plan: Yes Notes (Text): Patient seen and examined by me at 11:55AM with resident 12/12/17. Case including HPI, physical exam, and assessment and plan discussed with resident. Agree with above with following additions/corrections. Patient is a 62-year-old male with past medical history significant for systolic CHF status post ICD placement, coronary artery disease, type 2 diabetes, developmental delay, hypothyroidism, chronic kidney disease stage IV, hypertension, and BPH that presented with diarrhea, nausea, and vomiting. Patient states he is feeling ok. States he is eating well and ambulating well. Tolerating dialysis. He denies any chest pain or shortness of breath. No headaches or dizziness. No fevers or chills. No diarrhea or constipation. No nausea, vomiting, or abdominal pain. No dysuria. Physical exam: General: Awake and alert sitting up in chair in no acute distress HEENT: Normocephalic atraumatic. Pupils equal reactive. No scleral icterus. Oropharynx is pink and moist. Neck is supple. Cardiovascular: Normal rhythm. Normal S1, S2. No murmurs, rubs, or gallops appreciated Pulmonary: Normal respiratory effort. No rhonchi, rales or wheezing appreciated. Gastrointestinal: Soft, nondistended. Nontender. Positive bowel sounds all 4 quadrants, no guarding. Musculoskeletal: Moves all extremities, no calf tenderness, no edema appreciated. Central nervous system: Awake and alert Dermatologic: Skin warm and dry. Assessment and plan: Patient is a 62-year-old male with past medical history significant for systolic CHF status post ICD placement, coronary artery disease, type 2 diabetes, developmental delay, hypothyroidism, chronic kidney disease stage IV, hypertension, and BPH that presented with diarrhea, nausea, and vomiting. 1. Acute on chronic renal failure. Uremia. Now on dialysis. Continue PhosLo. Continue calcitriol. Uremia resolved. Nephrology following, recommendations appreciated. Pending outpatient dialysis placement. 2. Hyperkalemia. Resolved. Continue to monitor. 3. Nausea, vomiting, and diarrhea. Resolved. GI following, recommendations appreciated. CT abdomen and pelvis per radiologist showed large fat containing umbilical hernia measuring 6.4 cm in diameter, hernia defect is 3.5 cm, no acute intra-abdominal findings. Hernia reducible and patient asymptomatic. Patient to have EGD/colonoscopy as outpatient. 4. Coronary artery disease. Chronic Systolic CHF status post ICD. No acute issues. Continue aspirin, Plavix, and Coreg. Continue Lipitor. 5. DM type II. Continue insulin sliding scale. Continue to monitor Accu-Cheks. 6. Hypothyroidism. Synthroid. 7. BPH. Continue Flomax. 8. GI/DVT prophylaxis. Pepcid/heparin. Case was discussed in detail with the patient regarding current diagnosis and treatment plan. All questions were answered.
[2017-12-13] MEDS: Insulin Reg-MEDIUM-Coverage SC SCH ×3 (06:08→21:27)
[2017-12-13 08:05] LABS: BASO # 0.08 K/mm3 (0.0-2.0); BASO % 0.7 % (0.0-3.0); EOS % 8.5 % (1.5-5.0); GRAN # 8.09 (1.4-6.5); GRAN % 66.5 % (50.0-68.0); HEMOGLOBIN 15.6 g/dL (14.0-18.0); LYMPH # 2.1 (1.2-3.4); LYMPH % 17.4 % (22.0-35.0); MEAN CELL VOLUME 89.8 fl (80.0-105.0); MEAN CORPUSCULAR HEMOGLOBIN 29.4 pg (25.0-35.0); MEAN CORPUSCULAR HGB CONC 32.7 g/dl (31.0-37.0); MEAN PLATELET VOLUME 11.4 fl (7.0-11.0); MONO # 0.8 (0.1-0.6); MONO % 6.9 % (1.0-6.0); RBC 5.31 10^6/uL (3.5-6.1); RED CELL DISTRIBUTION WIDTH 13.6 % (11.5-14.5); WHITE BLOOD COUNT 12.2 10^3/ul (4.5-11.0)
[2017-12-13 08:15] LABS: ALBUMIN 4.3 g/dL (3.0-4.8); CALCIUM 11.2 mg/dL (8.4-10.5)
[2017-12-13] MEDS: Levothyroxine 125 MCG TAB PO SCH (10:00)
[2017-12-13 10:58] VITALS: O2SAT 97
--- NOTE | 2017-12-13 12:59 | PN ---
DATE: 12/13/2017 SUBJECTIVE: The patient is seen lying in bed. He is awake. He is alert. He is comfortable. He denies any pain. Denies any shortness of breath. PHYSICAL EXAMINATION: GENERAL: Obese elderly male sitting in bed. VITAL SIGNS: Blood pressure 136/88, heart rate 69, respiratory rate 20, temperature 98. HEENT: Normocephalic, atraumatic. No pallor, no icterus. NECK: Supple, no JVD. LUNGS: Bilateral equal air entry, bilateral rhonchi, basal rales. CARDIAC: S1 and S2, regular rate and rhythm, no murmur, no rub. ABDOMEN: Obese, distended, soft, nontender, bowel sounds present. EXTREMITIES: No lower extremity edema. INTAKE AND OUTPUT: 616/600. LABORATORY DATA: WBC 12, hemoglobin 15.6, hematocrit 47.7, platelets 291. Sodium 143, potassium 4.9, chloride 108, CO2 of 21, BUN 67, creatinine 3.9, glucose 125, calcium 11.2, albumin 4.3, phosphorus 4.2, PTH 298. CURRENT MEDICATIONS: Aspirin, Coreg 25 b.i.d., Flomax, insulin, Lipitor, Pepcid, PhosLo, Plavix, Synthroid, Zofran. ASSESSMENT: 1. Chronic kidney disease stage 5/end-stage renal disease now. 2. No new evidence of anemia of chronic kidney disease. 3. Congestive heart failure/cardiomyopathy/decreased ejection fraction/automatic implantable cardioverter-defibrillator. 4. Hypercalcemia. 5. Secondary hyperparathyroidism. 6. Mental retardation. PLAN: 1. Discontinue PhosLo because of hypercalcemia. 2. Calcitriol was already discontinued yesterday. 3. Continue to monitor calcium and phosphorus. 4. Plan for dialysis 2 times per week for the time being. 5. Vascular surgery eval for permanent access. 6. Dialysis today. 7. Discharge plan. Kaity Helms MD
--- NOTE | 2017-12-13 17:03 | CP.PCM.CON ---
History of Present Illness - History of Present Illness History of Present Illness: Surgical consult note for Dr. Grossman Patient is a 62 year old male with PMH of stage 4 CKD (on HD), CAD with AICD, T2DM, and developmental delay who presented to the ED on 12/07 for 2 days of intractable diarrhea and one episode of vomiting. Patient was found to be hyperkalemic, uremic, and hypermagnesemic in the ED and required emergent dialysis and management in the ICU. He had placement of right IJ tunneled dialysis catheter on 12/[address] Merlin Nagy. As per Nephrology, patient will require hemodialysis twice a week as outpatient. 12 point review of system was negative unless stated in HPI. PMH: CHF s/p ICD placement, CAD s/p PCI, CKD stage 4, hypertension, hypothyroidism, DM type 2, BPH PSH: ICD, PCI Allergies: NKDA Family Hx: Reviewed and noncontributory Social Hx: Denies tobacco, alcohol and illicit drug use PMD: Dr. Ortiz Past Patient History - Infectious Disease Hx of Infectious Diseases: None - Tetanus Immunizations Tetanus Immunization: Unknown - Past Medical History & Family History Past Medical History?: Yes - Past Social History Smoking Status: Never Smoked - CARDIAC Hx Cardiac Disorders: Yes (cardiac cath, coronary stent, pacemake w/ internal defibrillator) - PULMONARY Hx Chronic Obstructive Pulmonary Disease (COPD): Yes - NEUROLOGICAL Hx Neurological Disorder: Yes (MR) - HEENT Hx HEENT Problems: No - RENAL Hx Renal Failure: Yes - ENDOCRINE/METABOLIC Hx Diabetes Mellitus Type 1: Yes Hx Diabetes Mellitus Type 2: Yes Hx Hypothyroidism: Yes - HEMATOLOGICAL/ONCOLOGICAL Hx Blood Disorders: No - INTEGUMENTARY Hx Dermatological Problems: Yes - MUSCULOSKELETAL/RHEUMATOLOGICAL Hx Musculoskeletal Disorders: Yes Hx Falls: Yes - GASTROINTESTINAL Hx Gastrointestinal Disorders: No - GENITOURINARY/GYNECOLOGICAL Hx Genitourinary Disorders: No - PSYCHIATRIC Hx Psychophysiologic Disorder: Yes Hx Substance Use: No Other/Comment: Developmental delay. - SURGICAL HISTORY Hx Cardiac Catheterization: Yes Hx Coronary Stent: Yes Other/Comment: cardiac cath, pacemaker with internal defribilator - ANESTHESIA Hx Anesthesia: Yes Hx Anesthesia Reactions: No Hx Malignant Hyperthermia: No Meds Allergies/Adverse Reactions: Allergies Allergy/AdvReac Type Severity Reaction Status Date / Time No Known Allergies Allergy Verified 07/20/17 13:29 - Medications Medications: Current Medications Aspirin (Aspirin Chewable) 81 mg PO DAILY [facility] Last Admin: 12/12/17 09:19 Dose: 81 mg Atorvastatin Calcium (Lipitor) 20 mg PO HS [facility] Last Admin: 12/12/17 21:10 Dose: 20 mg Carvedilol (Coreg) 25 mg PO BID [facility] Last Admin: 12/12/17 17:28 Dose: 25 mg Clopidogrel Bisulfate (Plavix) 75 mg PO DAILY [facility] Last Admin: 12/12/17 09:19 Dose: 75 mg Famotidine (Pepcid) 40 mg PO HS [facility] Last Admin: 12/12/17 21:10 Dose: 40 mg Heparin Sodium (Porcine) (Heparin) 5,000 units SC Q12 [facility]; Protocol Last Admin: 12/12/17 21:10 Dose: Not Given Heparin Sodium (Porcine) (Heparin) 5,000 units IVP STAT PRN; Protocol PRN Reason: to prevent clotting during HD Stop: 01/18/18 23:00 Insulin Human Regular (Humulin R Med) 0 units SC ACHS [facility]; Protocol Last Admin: 12/13/17 06:08 Dose: Not Given Levothyroxine Sodium (Synthroid) 125 mcg PO DAILY [facility] Last Admin: 12/12/17 09:19 Dose: 125 mcg Ondansetron HCl (Zofran Inj) 4 mg IVP Q6H PRN PRN Reason: Nausea/Vomiting Tamsulosin HCl (Flomax) 0.4 mg PO DAILY [facility] Last Admin: 12/12/17 09:19 Dose: 0.4 mg Physical Exam - Constitutional Appears: Well, Non-toxic, No Acute Distress - Head Exam Head Exam: ATRAUMATIC, NORMOCEPHALIC - Eye Exam Eye Exam: Normal appearance - ENT Exam ENT Exam: Mucous Membranes Moist, Normal Exam - Neck Exam Neck exam: Positive for: Normal Inspection - Respiratory Exam Respiratory Exam: NORMAL BREATHING PATTERN - Cardiovascular Exam Cardiovascular Exam: absent: Bradycardia, Tachycardia - GI/Abdominal Exam GI & Abdominal Exam: Soft. absent: Distended, Tenderness - Extremities Exam Extremities exam: Positive for: normal inspection - Neurological Exam Neurological exam: Alert, Oriented x3 - Psychiatric Exam Psychiatric exam: Normal Affect, Normal Mood - Skin Skin Exam: Dry, Normal Color Results - Vital Signs Recent Vital Signs: Last Vital Signs Temp 98 F 12/13/17 06:00 Pulse 69 09/25/18 06:00 Resp 20 12/13/17 06:00 BP 136/88 12/13/17 06:00 Pulse Ox 97 12/13/17 06:00 - Labs Result Diagrams: 12/13/17 07:30 12/13/17 07:30 Labs: Laboratory Results - last 24 hr 12/12/17 12/13/17 12/13/17 22:22 07:30 07:30 WBC 12.2 H RBC 5.31 Hgb 15.6 Hct 47.7 MCV 89.8 MCH 29.4 MCHC 32.7 RDW 13.6 Plt Count 291 MPV 11.4 H Gran % 66.5 Lymph % (Auto) 17.4 L [place] % (Auto) 6.9 H Eos % (Auto) 8.5 H Baso % (Auto) 0.7 Gran # 8.09 H Lymph # (Auto) 2.1 [place] # (Auto) 0.8 H Eos # (Auto) 1.0 H Baso # (Auto) 0.08 Sodium 143 Potassium 4.9 Chloride 108 H Carbon Dioxide 21 Anion Gap 19 BUN 67 H Creatinine 3.9 H Est GFR ( Amer) 19 Est GFR (Non-Af Amer) 16 POC Glucose (mg/dL) 134 H Random Glucose 125 H Calcium 11.2 H Phosphorus 4.2 Magnesium 2.0 Total Bilirubin 0.6 AST 27 ALT 11 Alkaline Phosphatase 75 Total Protein 8.7 H Albumin 4.3 Globulin 4.4 Albumin/Globulin Ratio 1.0 L Assessment & Plan - Assessment and Plan (Free Text) Assessment: Patient is a 62 year old male with PMH of stage 4 CKD (on HD), CAD with AICD, T2DM, and developmental delay. Surgery consulted for permanent catheter access. Plan: - Follow up vein mapping - Plan for outpatient AVF placement - Continue dialysis as per nephrology recommendations Case discussed with Dr. Ngoc Slater DO PGY-1 - Date & Time Date: 12/13/17 Time: 17:18
--- NOTE | 2017-12-13 17:58 | CP.PCM.PN ---
<Lavonne Mac - Last Filed: 12/13/17 17:54> Subjective - Date & Time of Evaluation Date of Evaluation: 12/13/17 Time of Evaluation: 09:40 - Subjective Subjective: PGY-1 Lavonne Mac D.O. Medicine progress note for Dr. Snider's service: Patient was seen and examined this morning. No over night events reported. Patient has no acute complaints. He is eating and sleeping well. Diarrhea, nausea, and vomiting have resolved. Patient is ambulating independently. He is tolerating dialysis well. Objective - Vital Signs/Intake and Output Vital Signs (last 24 hours): Temp Pulse Resp BP Pulse Ox 98 F 69 20 136/88 97 12/13/17 06:00 12/13/17 06:00 12/13/17 06:00 12/13/17 06:00 12/13/17 06:00 Intake and Output: 12/13/17 12/13/17 06:59 18:59 Intake Total 660 Output Total 600 Balance 60 - Medications Medications: Current Medications Aspirin (Aspirin Chewable) 81 mg PO DAILY [facility] Last Admin: 12/12/17 09:19 Dose: 81 mg Atorvastatin Calcium (Lipitor) 20 mg PO HS [facility] Last Admin: 12/12/17 21:10 Dose: 20 mg Carvedilol (Coreg) 25 mg PO BID [facility] Last Admin: 12/12/17 17:28 Dose: 25 mg Clopidogrel Bisulfate (Plavix) 75 mg PO DAILY [facility] Last Admin: 12/12/17 09:19 Dose: 75 mg Famotidine (Pepcid) 40 mg PO HS [facility] Last Admin: 12/12/17 21:10 Dose: 40 mg Heparin Sodium (Porcine) (Heparin) 5,000 units SC Q12 [facility]; Protocol Last Admin: 12/12/17 21:10 Dose: Not Given Heparin Sodium (Porcine) (Heparin) 5,000 units IVP STAT PRN; Protocol PRN Reason: to prevent clotting during HD Stop: 01/18/18 23:00 Insulin Human Regular (Humulin R Med) 0 units SC ACHS [facility]; Protocol Last Admin: 12/13/17 06:08 Dose: Not Given Levothyroxine Sodium (Synthroid) 125 mcg PO DAILY [facility] Last Admin: 12/12/17 09:19 Dose: 125 mcg Ondansetron HCl (Zofran Inj) 4 mg IVP Q6H PRN PRN Reason: Nausea/Vomiting Tamsulosin HCl (Flomax) 0.4 mg PO DAILY [facility] Last Admin: 12/12/17 09:19 Dose: 0.4 mg - Labs Labs: 12/13/17 07:30 12/13/17 07:30 PT 11.9 SECONDS (9.4-12.5) 12/07/17 09:20 INR 1.03 12/07/17 09:20 APTT 37.4 Seconds (25.1-36.5) H 12/07/17 09:20 - Constitutional Appears: Non-toxic, No Acute Distress - Head Exam Head Exam: ATRAUMATIC, NORMAL INSPECTION - Eye Exam Eye Exam: EOMI, Normal appearance - ENT Exam ENT Exam: Mucous Membranes Moist, Normal Exam - Neck Exam Neck Exam: Normal Inspection - Respiratory Exam Respiratory Exam: Clear to Ausculation Bilateral, NORMAL BREATHING PATTERN - Cardiovascular Exam Cardiovascular Exam: REGULAR RHYTHM, +S1, +S2 Additional comments: Right- IJ tunneled dialysis catheter is in place - GI/Abdominal Exam GI & Abdominal Exam: Soft, Normal Bowel Sounds. absent: Tenderness - Rectal Exam Rectal Exam: Deferred - Extremities Exam Extremities Exam: Normal Capillary Refill, Normal Inspection. absent: Pedal Edema, Tenderness - Back Exam Back Exam: NORMAL INSPECTION - Neurological Exam Neurological Exam: Alert, Awake, CN II-XII Intact, Normal Gait, Oriented x3 Neuro motor strength exam: Left Upper Extremity: 5, Right Upper Extremity: 5, Le ft Lower Extremity: 5, Right Lower Extremity: 5 - Psychiatric Exam Psychiatric exam: Normal Affect, Normal Mood - Skin Skin Exam: Dry, Intact, Normal Color, Warm Assessment and Plan - Assessment and Plan (Free Text) Assessment: Patient is a 62 year old male with PMH of stage 4 CKD (not on HD), CAD with AICD, T2DM, and developmental delay who presented to the ED on 12/07 for 2 days of intractable diarrhea, nausea, and one episode of vomiting. Patient lives in supervised housing in his own apartment. He was found to be hyperkalemic, uremic, and hypermagnesemic in the ED and required emergent dialysis and management in the ICU. He had placement of right IJ tunneled dialysis catheter on 12/07. Patient is tolerating dialysis and was transferred to med/surg. Patient will require HD 3x/week as outpatient. Plan: ESRD- newly on HD this admission, patient will see Dr. 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 - Ca 10.9 - PTH 298 - Continue HD - Renal diet Vomiting and Diarrhea, resolved- underlying periumbilical hernia - Reducible hernia, no acute intervention is warranted at this time - CT abdomen and pelvis (12/07): fat containing umbilical hernia - Zofran 4 mg IV Q6H PRN - GI consulted (Cam)- endoscopy/colonoscopy when he is medically optimized, preferably as outpatient CAD - ASA 81 mg PO daily - Plavix 75 mg PO daily - Lipitor 20 mg PO QHS T2DM - A1c 7.2 - Discontinued metformin due to CKD - ISS medium - Hypoglycemic protocol - Accuchecks ACHS Hypertension - Carvedilol 25 mg PO BID Hypothyroidism - Synthroid 125 mcg PO daily IVF: not indicated Diet: renal DVT ppx: Heparin 5000 units SC Q12H GI ppx: Pepcid 40 mg PO QHS Code status: full code (LAUREN waller) Case discussed with attending, Dr. Snider. <Izabella Snider R - Last Filed: 12/14/17 15:51> Objective - Vital Signs/Intake and Output Vital Signs (last 24 hours): Temp Pulse Resp BP Pulse Ox 97.5 F L 70 18 122/77 97 12/14/17 07:57 12/14/17 07:57 12/14/17 07:57 12/14/17 11:24 12/14/17 07:57 Intake and Output: 12/14/17 12/14/17 06:59 18:59 Intake Total 240 Output Total 300 Balance -60 - Medications Medications: Current Medications Aspirin (Aspirin Chewable) 81 mg PO DAILY [facility] Last Admin: 12/14/17 11:25 Dose: 81 mg Atorvastatin Calcium (Lipitor) 20 mg PO HS [facility] Last Admin: 12/13/17 21:37 Dose: 20 mg Carvedilol (Coreg) 25 mg PO BID [facility] Last Admin: 12/14/17 11:24 Dose: 25 mg Clopidogrel Bisulfate (Plavix) 75 mg PO DAILY [facility] Last Admin: 12/14/17 11:25 Dose: 75 mg Famotidine (Pepcid) 40 mg PO HS [facility] Last Admin: 12/13/17 21:37 Dose: 40 mg Heparin Sodium (Porcine) (Heparin) 5,000 units SC Q12 [facility]; Protocol Last Admin: 12/14/17 11:25 Dose: 5,000 units Heparin Sodium (Porcine) (Heparin) 5,000 units IVP STAT PRN; Protocol PRN Reason: to prevent clotting during HD Stop: 01/18/18 23:00 Insulin Human Regular (Humulin R Med) 0 units SC ACHS [facility]; Protocol Last Admin: 12/14/17 11:56 Dose: Not Given Levothyroxine Sodium (Synthroid) 125 mcg PO DAILY [facility] Last Admin: 12/14/17 11:24 Dose: 125 mcg Ondansetron HCl (Zofran Inj) 4 mg IVP Q6H PRN PRN Reason: Nausea/Vomiting Sevelamer HCl (Renagel) 800 mg PO WM [facility] Last Admin: 12/14/17 11:23 Dose: 800 mg Tamsulosin HCl (Flomax) 0.4 mg PO DAILY [facility] Last Admin: 12/14/17 11:23 Dose: 0.4 mg - Labs Labs: 12/14/17 07:15 12/14/17 07:15 PT 11.9 SECONDS (9.4-12.5) 12/07/17 09:20 INR 1.03 12/07/17 09:20 APTT 37.4 Seconds (25.1-36.5) H 12/07/17 09:20 Attending/Attestation - Attestation I have personally seen and examined this patient.: Yes I have fully participated in the care of the patient.: Yes I have reviewed all pertinent clinical information, including history, physical exam and plan: Yes Notes (Text): Patient seen and examined by me at 12:40PM with resident 12/13/17. Case including HPI, physical exam, and assessment and plan discussed with resident. Agree with above with following additions/corrections. Patient is a 62-year-old male with past medical history significant for systolic CHF status post ICD placement, coronary artery disease, type 2 diabetes, developmental delay, hypothyroidism, chronic kidney disease stage IV, hypertension, and BPH that presented with diarrhea, nausea, and vomiting. Patient states he is feels fine. Denying any diarrhea. No chest pain or shortness of breath. No headaches or dizziness. No fevers or chills. No nausea, vomiting, or abdominal pain. No dysuria. Patient is ambulating well. Physical exam: General: Awake and alert sitting up in chair in no acute distress HEENT: Normocephalic atraumatic. Pupils equal reactive. No scleral icterus. Oropharynx is pink and moist. Neck is supple. Cardiovascular: Normal rhythm. Normal S1, S2. No murmurs, rubs, or gallops appreciated Pulmonary: Normal respiratory effort. No rhonchi, rales or wheezing appreciated. Gastrointestinal: Soft, nondistended. Nontender. Positive bowel sounds all 4 quadrants, no guarding. Musculoskeletal: Moves all extremities, no calf tenderness, no edema appreciated. Central nervous system: Awake and alert Dermatologic: Skin warm and dry. Assessment and plan: Patient is a 62-year-old male with past medical history significant for systolic CHF status post ICD placement, coronary artery disease, type 2 diabetes, developmental delay, hypothyroidism, chronic kidney disease stage IV, hypertension, and BPH that presented with diarrhea, nausea, and vomiting. 1. Acute on chronic renal failure. Uremia. Uremia resolved. Continue with dialysis. Patient will have HD on MWF. Patient for veing mapping. Continue Renagel. Nephrology following, recommendations appreciated. Pending outpatient dialysis placement. 2. Hyperkalemia. Resolved. Continue to monitor. 3. Nausea, vomiting, and diarrhea. Resolved. GI following, recommendations appreciated. CT abdomen and pelvis per radiologist showed large fat containing umbilical hernia measuring 6.4 cm in diameter, hernia defect is 3.5 cm, no acute intra-abdominal findings. Hernia reducible and patient asymptomatic. Patient to have EGD/colonoscopy as outpatient. 4. Coronary artery disease. Chronic systolic CHF status post ICD. No acute issues. Continue aspirin, Plavix, and Coreg. Continue Lipitor. 5. DM type II. Continue insulin sliding scale. Continue to monitor Accu-Cheks. 6. Hypothyroidism. Synthroid. 7. BPH. Continue Flomax. 8. GI/DVT prophylaxis. Pepcid/heparin. Case was discussed in detail with the patient regarding current diagnosis and treatment plan. All questions were answered.
[2017-12-14 07:28] LABS: BASO # 0.14 K/mm3 (0.0-2.0); BASO % 1.3 % (0.0-3.0); EOS # 0.7 (0.0-0.7); EOS % 6.1 % (1.5-5.0); GRAN # 6.57 (1.4-6.5); GRAN % 59.8 % (50.0-68.0); HEMOGLOBIN 14.3 g/dL (14.0-18.0); LYMPH # 2.3 (1.2-3.4); LYMPH % 21.3 % (22.0-35.0); MEAN CORPUSCULAR HEMOGLOBIN 29.7 pg (25.0-35.0); MEAN CORPUSCULAR HGB CONC 33.7 g/dl (31.0-37.0); MONO # 1.3 (0.1-0.6); MONO % 11.5 % (1.0-6.0); RBC 4.82 10^6/uL (3.5-6.1); RED CELL DISTRIBUTION WIDTH 13.5 % (11.5-14.5)
[2017-12-14 07:46] LABS: ALBUMIN 3.7 g/dL (3.0-4.8); CALCIUM 9.4 mg/dL (8.4-10.5)
[2017-12-14 07:59] VITALS: BP 122/77; PULSE 70; RESP 18; TEMP 97.5
--- NOTE | 2017-12-14 08:14 | CP.PCM.DIS ---
Provider - Provider Date of Admission: 12/07/17 11:19 Attending physician: Izabella Snider DO Primary care physician: Dr. Ortiz Consults: ICU GI nephrology IR vascular surgery Time Spent in preparation of Discharge (in minutes): 45 Diagnosis - Discharge Diagnosis (1) ESRD on dialysis Status: Chronic Priority: High Hospital Course - Lab Results Lab Results: Micro Results 12/07/17 13:00 Naris MRSA Culture (Admit) - Final MRSA NOT DETECTED Most Recent Lab Values WBC 11.0 10^3/ul (4.5-11.0) 12/14/17 07:15 RBC 4.82 10^6/uL (3.5-6.1) 12/14/17 07:15 Hgb 14.3 g/dL (14.0-18.0) 12/14/17 07:15 Hct 42.4 % (42.0-52.0) 12/14/17 07:15 MCV 88.0 fl (80.0-105.0) 12/14/17 07:15 MCH 29.7 pg (25.0-35.0) 12/14/17 07:15 MCHC 33.7 g/dl (31.0-37.0) 12/14/17 07:15 RDW 13.5 % (11.5-14.5) 12/14/17 07:15 Plt Count 234 10^3/uL (120.0-450.0) 12/14/17 07:15 MPV 11.0 fl (7.0-11.0) 12/14/17 07:15 Gran % 59.8 % (50.0-68.0) 12/14/17 07:15 Lymph % (Auto) 21.3 % (22.0-35.0) L 12/14/17 07:15 [place] % (Auto) 11.5 % (1.0-6.0) H 12/14/17 07:15 Eos % (Auto) 6.1 % (1.5-5.0) H 12/14/17 07:15 Baso % (Auto) 1.3 % (0.0-3.0) 12/14/17 07:15 Gran # 6.57 (1.4-6.5) H 12/14/17 07:15 Lymph # (Auto) 2.3 (1.2-3.4) 12/14/17 07:15 [place] # (Auto) 1.3 (0.1-0.6) H 12/14/17 07:15 Eos # (Auto) 0.7 (0.0-0.7) 12/14/17 07:15 Baso # (Auto) 0.14 K/mm3 (0.0-2.0) 12/14/17 07:15 PT 11.9 SECONDS (9.4-12.5) 12/07/17 09:20 INR 1.03 12/07/17 09:20 APTT 37.4 Seconds (25.1-36.5) H 12/07/17 09:20 Sodium 137 mmol/L (132-148) 12/14/17 07:15 Potassium 4.2 mmol/L (3.6-5.0) 12/14/17 07:15 Chloride 105 mmol/L (98-107) 12/14/17 07:15 Carbon Dioxide 23 mmol/L (21-33) 12/14/17 07:15 Anion Gap 14 (10-20) 12/14/17 07:15 BUN 40 mg/dL (7-21) H 12/14/17 07:15 Creatinine 2.9 mg/dl (0.8-1.5) H 12/14/17 07:15 Est GFR ( Amer) 27 12/14/17 07:15 Est GFR (Non-Af Amer) 22 12/14/17 07:15 POC Glucose (mg/dL) 94 mg/dL (65-110) 12/14/17 06:40 Random Glucose 107 mg/dL (70-110) 12/14/17 07:15 Hemoglobin A1c 7.2 % (4.2-6.5) H 12/07/17 09:20 Calcium 9.4 mg/dL (8.4-10.5) 12/14/17 07:15 Phosphorus 3.7 mg/dL (2.5-4.5) 12/14/17 07:15 Magnesium 2.0 mg/dL (1.7-2.2) 12/14/17 07:15 Total Bilirubin 0.3 mg/dL (0.2-1.3) 12/14/17 07:15 AST 21 U/L (17-59) 12/14/17 07:15 ALT 16 U/L (7-56) 12/14/17 07:15 Alkaline Phosphatase 66 U/L (38-126) 12/14/17 07:15 Troponin I 0.06 ng/mL 12/07/17 09:20 Total Protein 7.4 g/dL (5.8-8.3) 12/14/17 07:15 Albumin 3.7 g/dL (3.0-4.8) 12/14/17 07:15 Globulin 3.7 gm/dL 12/14/17 07:15 Albumin/Globulin Ratio 1.0 (1.1-1.8) L 12/14/17 07:15 Lipase 188 U/L (23-300) 12/07/17 09:20 Chromagranin A 2567 ng/mL (25-140) H 12/09/17 05:25 PTH Intact Whole Molec 298 pg/mL (14-64) H 12/10/17 07:30 U Random Total Protein 334 mg/L (50-250) H 12/10/17 00:30 Urine Collection Time 24 HOURS 12/10/17 00:30 Urine Total Volume 1200 mL (800-1400) 12/10/17 00:30 Creatinine Clearance 13.0 ml/min (80-120) L 12/10/17 00:30 Ur Total Protein 24 Hr 401 mg/24 h (<150) H 12/10/17 00:30 Stool Leukocytes, Qual Negative (NEGATIVE) 12/08/17 14:30 Hep Bs Antigen Negative (NEGATIVE) 12/07/17 22:56 Hep Bs Antibody Negative (NEGATIVE) 12/07/17 09:20 Hep B Core IgM Ab Negative (NEGATIVE) 12/07/17 22:56 - Hospital Course Hospital Course: Patient is a 62 year old male with PMH of stage 4 CKD not previously on dialysis, CAD with AICD, T2DM, developmental delay, BPH who presented to the ED on 12/07 for 2 days of intractable diarrhea, nausea, and one episode of vomiting. Patient lives in supervised housing in his own apartment. He was found to be hyperkalemic, uremic, and hypermagnesemic in the ED and required emergent dialysis and management in the ICU. He had placement of right IJ tunneled dialysis catheter on 12/07. Patient is tolerating dialysis and was transferred to med/surg. Patient will require HD 3x/ week as outpatient. Upon admission, labs revealed elevated potassium, acidosis, and uremia. He was treated with calcium gluconate, D50 and insulin and Kayexalate and albuterol treatment. EKG showed no acute changes. Patient was admitted to the ICU and required emergent dialysis and management. Uremia resolved by 12/08. Hyperkalemia and acidosis resolved. Patient has been tolerating dialysis. Patient had downtrending BUN/Creatinine ratio. He is scheduled for dialysis 3x/week as outpatient with Dr. Hinds on MWF. Vein mapping of bilateral upper extremities for permanent AVF placement have been completed. On the morning of discharge, patient was doing well. Patient will continue dialysis on a MWF schedule. Vitals were stable. Patient denied nausea and vomiting. Diarrhea resolved. Patient is tolerating PO intake. Patient will follow up with Dr. Golden at his office for outpatient AVF placement. Discharge Exam - Head Exam Head Exam: ATRAUMATIC, NORMAL INSPECTION - Eye Exam Eye Exam: EOMI, Normal appearance - ENT Exam ENT Exam: Mucous Membranes Moist, Normal Exam - Neck Exam Neck exam: Normal Inspection - Respiratory Exam Respiratory Exam: Clear to PA & Lateral, NORMAL BREATHING PATTERN, UNREMARKABLE - Cardiovascular Exam Cardiovascular Exam: REGULAR RHYTHM, +S1, +S2 - GI/Abdominal Exam GI & Abdominal Exam: Normal Bowel Sounds, Soft, Unremarkable - Rectal Exam Rectal Exam: Deferred - Extremities Exam Extremities exam: normal capillary refill, normal inspection, pedal pulses present - Back Exam Back exam: NORMAL INSPECTION - Neurological Exam Neurological exam: Alert, CN II-XII Intact, Normal Gait, Oriented x3 - Psychiatric Exam Psychiatric exam: Normal Affect, Normal Mood Discharge Plan - Discharge Medications Prescriptions: Sevelamer [Renagel] 800 mg PO WM #30 tab - Follow Up Plan Condition: IMPROVED Disposition: HOME/ ROUTINE Instructions: Kidney Failure, Renal Failure Diet (DC), Hyperkalemia (DC) Additional Instructions: You are being discharged from [facility] after being treated for chronic kidney disease by starting hemodialysis. You will be receiving dialysis at [facility] outpatient dialysis unit every Tuesday, Tuesday, and Tuesday under the care of package liner, Dr. Hinds. Please follow-up with your primary care physician, Dr. Ortiz, within 3-5 days of discharge. You primary care provider will continue to manage your diabetes medications if needed. Your diabetes medication, metformin, has been stopped due to your kidney function. Please follow-up with vascular surgeon, Dr. Philippe, within 1 week for AV fistula for dialysis. Discontinue your home metformin, furosemide (Lasix), Protonix (pantoprazole), calcitriol, and phoslo. If symptoms return, please present to the nearest emergency room. Referrals: Luly Ortiz MD [Family Provider] - Henrry Hinds MD [Staff Provider] - Reji Grossman MD [Staff Provider] -
--- NOTE | 2017-12-14 10:06 | CP.PCM.PN ---
Subjective - Date & Time of Evaluation Date of Evaluation: 12/14/17 Time of Evaluation: 10:03 - Subjective Subjective: General Surgery progress note for Dr. Golden Patient seen and examined at bedside. No acute events overnight. Patient has no complaints at this time. Objective - Vital Signs/Intake and Output Vital Signs (last 24 hours): Temp Pulse Resp BP Pulse Ox 97.5 F L 70 18 122/77 97 12/14/17 07:57 12/14/17 07:57 12/14/17 07:57 12/14/17 07:57 12/14/17 07:57 Intake and Output: 12/14/17 12/14/17 06:59 18:59 Intake Total 240 Output Total 300 Balance -60 - Medications Medications: Current Medications Aspirin (Aspirin Chewable) 81 mg PO DAILY [facility] Last Admin: 12/13/17 10:00 Dose: 81 mg Atorvastatin Calcium (Lipitor) 20 mg PO HS [facility] Last Admin: 12/13/17 21:37 Dose: 20 mg Carvedilol (Coreg) 25 mg PO BID [facility] Last Admin: 12/13/17 18:50 Dose: 25 mg Clopidogrel Bisulfate (Plavix) 75 mg PO DAILY [facility] Last Admin: 12/13/17 10:00 Dose: 75 mg Famotidine (Pepcid) 40 mg PO HS [facility] Last Admin: 12/13/17 21:37 Dose: 40 mg Heparin Sodium (Porcine) (Heparin) 5,000 units SC Q12 [facility]; Protocol Last Admin: 12/13/17 21:38 Dose: Not Given Heparin Sodium (Porcine) (Heparin) 5,000 units IVP STAT PRN; Protocol PRN Reason: to prevent clotting during HD Stop: 01/18/18 23:00 Insulin Human Regular (Humulin R Med) 0 units SC ACHS [facility]; Protocol Last Admin: 12/13/17 21:27 Dose: Not Given Levothyroxine Sodium (Synthroid) 125 mcg PO DAILY [facility] Last Admin: 12/13/17 10:00 Dose: 125 mcg Ondansetron HCl (Zofran Inj) 4 mg IVP Q6H PRN PRN Reason: Nausea/Vomiting Sevelamer HCl (Renagel) 800 mg PO WM [facility] Last Admin: 12/14/17 07:57 Dose: 800 mg Tamsulosin HCl (Flomax) 0.4 mg PO DAILY [facility] Last Admin: 12/13/17 10:00 Dose: 0.4 mg - Labs Labs: 12/14/17 07:15 12/14/17 07:15 PT 11.9 SECONDS (9.4-12.5) 12/07/17 09:20 INR 1.03 12/07/17 09:20 APTT 37.4 Seconds (25.1-36.5) H 12/07/17 09:20 - Constitutional Appears: Well, No Acute Distress - Head Exam Head Exam: ATRAUMATIC, NORMOCEPHALIC - Eye Exam Eye Exam: Normal appearance - ENT Exam ENT Exam: Mucous Membranes Moist - Respiratory Exam Respiratory Exam: absent: Accessory Muscle Use, Respiratory Distress - Cardiovascular Exam Cardiovascular Exam: absent: Bradycardia, Tachycardia - GI/Abdominal Exam GI & Abdominal Exam: Soft. absent: Tenderness - Extremities Exam Extremities Exam: Normal Inspection - Neurological Exam Neurological Exam: Alert, Awake, Oriented x3 - Psychiatric Exam Psychiatric exam: Normal Affect, Normal Mood - Skin Skin Exam: Dry, Intact, Normal Color, Warm Assessment and Plan - Assessment and Plan (Free Text) Assessment: Patient is a 62 year old male with PMH of ESRD requiring hemodialysis. Plan: - Follow up vein mapping today. - Placed limb alert for right arm. - Hemodialysis today before discharge as per nephrology. - Plan for outpatient AVF placement. Instructed patient to follow up with Dr. Golden at his office. Clear for discharge from surgery's point of view following plan above. Case discussed with Dr. Ngoc Slater DO PGY-1
[2017-12-14] MEDS: Levothyroxine 125 MCG TAB PO SCH (11:24)
[2017-12-14] MEDS: Insulin Reg-MEDIUM-Coverage SC SCH ×2 (11:55→11:56)
== END 2017-12-14 15:55 | disposition home or self-care (01) | DRG 315 ==
LOC: ED 08:01 → ERH 11:19 → CCU 12:58 → 5RSO 12-09 15:47
PROVIDERS: ADMIT Internal Medicine; ATTEND Hospitalist
PROC: 0JH63XZ Insertion of Tunneled Vascular Access Device into Chest Subcutaneous Tissue and Fascia, Percutaneous Approach (ICD-10-PCS; 2017-12-07)
PROC: 02H633Z Insertion of Infusion Device into Right Atrium, Percutaneous Approach (ICD-10-PCS; 2017-12-07)
PROC: 5A1D70Z Performance of Urinary Filtration, Intermittent, Less than 6 Hours Per Day (ICD-10-PCS; principal; 2017-12-08)
PROC: 5A1D70Z Performance of Urinary Filtration, Intermittent, Less than 6 Hours Per Day (ICD-10-PCS; 2017-12-13)
DX: N17.9 Acute kidney failure, unspecified (principal); N18.6 End stage renal disease; I50.22 Chronic systolic (congestive) heart failure; I13.2 Hypertensive heart and chronic kidney disease with heart failure and with stage 5 chronic kidney disease, or end stage renal disease; I42.0 Dilated cardiomyopathy; E11.22 Type 2 diabetes mellitus with diabetic chronic kidney disease; E87.5 Hyperkalemia; E11.649 Type 2 diabetes mellitus with hypoglycemia without coma; E87.2 Acidosis; J44.9 Chronic obstructive pulmonary disease, unspecified; I25.10 Atherosclerotic heart disease of native coronary artery without angina pectoris; N40.0 Benign prostatic hyperplasia without lower urinary tract symptoms; N25.81 Secondary hyperparathyroidism of renal origin; F79 Unspecified intellectual disabilities; E03.9 Hypothyroidism, unspecified; K42.9 Umbilical hernia without obstruction or gangrene; Z99.2 Dependence on renal dialysis; Z95.810 Presence of automatic (implantable) cardiac defibrillator; Z95.5 Presence of coronary angioplasty implant and graft; Z79.82 Long term (current) use of aspirin; Z79.02 Long term (current) use of antithrombotics/antiplatelets

== ENCOUNTER 2017-12-15 08:08 | Inpatient (IN) | payer MEDICAID ==
--- NOTE | 2017-12-15 08:18 | ED PDOC ---
Arrival/HPI - General Chief Complaint: Trauma Time Seen by Provider: 12/15/17 08:13 Historian: Patient - History of Present Illness Narrative History of Present Illness (Text): 62 y/o M w/ h/o developmental delay, CHF s/p ICD placement, CAD s/p PCI, CKD stage 4 (HD //Tue), hypertension, hypothyroidism, DM type 2, and BPH, presenting to the ED s/p fall. Patient was at home when he had a bowel movement, ambulated to wash his hands and encountered a syncopal episode. He denies tripping or colliding into any stationary objects and denies any somatic complaints at this time. Patient had his first dialysis treatment yesterday. Patient reports feeling nauseous before the syncopal episode and currently feels slight dizziness, but denies any head injury, fever, chills, chest pain, shortness of breath, nausea, vomiting, diarrhea, urinary symptoms, back pain, neck pain, headache or any other complaints. PMD: Dr. Ortiz Vascular surgeon: Dr. Philippe Time/Duration: Prior to Arrival Symptom Onset: Sudden Activities at Onset: Light Context: Walking, Home Past Medical History - Provider Review Nursing Documentation Reviewed: Yes - Travel History Have you recently traveled outside [place] w/in the past 3 mons?: No - Past History Past History: No Previous - Infectious Disease Hx of Infectious Diseases: None - Tetanus Immunization Tetanus Immunization: Unknown - Cardiac Hx Cardiac Disorders: Yes (cardiac cath, coronary stent, pacemake w/ internal defibrillator) - Pulmonary Hx Chronic Obstructive Pulmonary Disease (COPD): Yes - Neurological Hx Neurological Disorder: Yes (MR) - HEENT Hx HEENT Disorder: No - Renal Hx Renal Failure: Yes - Endocrine/Metabolic Hx Diabetes Mellitus Type 1: Yes Hx Diabetes Mellitus Type 2: Yes Hx Hypothyroidism: Yes - Hematological/Oncological Hx Blood Disorders: No - Integumentary Hx Dermatological Disorder: Yes - Musculoskeletal/Rheumatological Hx Musculoskeletal Disorders: Yes Hx Falls: Yes - Gastrointestinal Hx Gastrointestinal Disorders: No - Genitourinary/Gynecological Hx Genitourinary Disorders: No - Psychiatric Hx Psychophysiologic Disorder: Yes Hx Substance Use: No Other/Comment: Developmental delay. - Surgical History Hx Cardiac Catheterization: Yes Hx Coronary Stent: Yes Other/Comment: cardiac cath, pacemaker with internal defribilator - Anesthesia Hx Anesthesia: Yes Hx Anesthesia Reactions: No Hx Malignant Hyperthermia: No - Suicidal Assessment Feels Threatened In Home Enviroment: No Family/Social History - Physician Review Nursing Documentation Reviewed: Yes Family/Social History: No Known Family HX Smoking Status: Never Smoked Hx Alcohol Use: No Hx Substance Use: No Hx Substance Use Treatment: No Allergies/Home Meds Allergies/Adverse Reactions: Allergies No Known Allergies Allergy (Verified 12/15/17 08:18) Home Medications: Home Meds Medication Instructions Recorded Confirmed Unobtainable 12/15/17 12/15/17 Review of Systems - Physician Review All systems were reviewed & negative as marked: Yes - Review of Systems Constitutional: absent: Fevers, Other (Chills) Respiratory: absent: SOB Cardiovascular: Syncope. absent: Chest Pain Gastrointestinal: absent: Diarrhea, Nausea Genitourinary Male: absent: Dysuria, Frequency, Hematuria Musculoskeletal: absent: Back Pain, Neck Pain Neurological: Dizziness. absent: Headache Physical Exam Vital Signs Reviewed: Yes Temperature: Afebrile Blood Pressure: Hypotensive Pulse: Regular Respiratory Rate: Normal Appearance: Positive for: Well-Appearing, Non-Toxic, Comfortable Pain Distress: None Mental Status: Positive for: Alert and Oriented X 3 - Systems Exam Head: Present: Atraumatic, Normocephalic Pupils: Present: PERRL Extroacular Muscles: Present: EOMI Conjunctiva: Present: Normal Mouth: Present: Moist Mucous Membranes Neck: Present: Normal Range of Motion Respiratory/Chest: Present: Clear to Auscultation, Good Air Exchange, Other (Palpable implanted device w/in upper left thorax). No: Respiratory Distress, Accessory Muscle Use, Wheezes, Decreased Breath Sounds Cardiovascular: Present: Regular Rate and Rhythm, Normal S1, S2. No: Murmurs Abdomen: Present: Distention (but soft), Hernias (Large umbilical hernia noted. No pain to palpation. ). No: Tenderness, Peritoneal Signs Back: Present: Normal Inspection Upper Extremity: Present: Normal Inspection. No: Cyanosis, Edema Lower Extremity: Present: Normal Inspection, Other (Chronic venous stasis circumferentially to the shins bilaterally). No: Edema, Tenderness, Swelling Neurological: Present: GCS=15, CN II-XII Intact, Speech Normal Skin: Present: Warm, Dry, Normal Color. No: Rashes Psychiatric: Present: Alert, Oriented x 3, Normal Insight, Normal Concentration Medical Decision Making ED Course and Treatment: 12/15/17 09:00 Impression: 62 year old male presents s/p fall after a syncopal episode. Patient reports nausea before the episode and currently complaining of dizziness. Differential Diagnosis included but are not limited to: TIA/CVA Fluid Shift losses secondary to dialysis Sepsis Toxic Metabolic Encephalopathy Plan: -- VBG -- CT C-Spine -- CTH -- EKG -- CXR -- Labs -- IV Fluids -- Urinalysis -- Reassess and disposition Prior Visits: Notes and results from previous visits were reviewed. Patient was last seen in the emergency department on 12/07/17 presents complaining of abdominal pain associated with diarrhea yesterday. Patient was admitted for Hyperkalemia, Metabolic acidosis, Diarrhea, and Chronic kidney disease. Patient was discharged yesterday. Progress Notes: 12/15/17 09:58 CTH shows chronic intracranial pathology. No acute infarct. CT C-spine negative for fractures or dislocations. Case discussed with Dr. Ortiz who is aware and states to admitted patient into hospitalist service. 12/15/17 10:[address] Gaming who is aware and agrees with the plan and accepts patient into hospitalist service. - Lab Interpretations I have reviewed the lab results: Yes - RAD Interpretation Narrative RAD Interpretations (Text): PROCEDURE: CT HEAD WITHOUT CONTRAST. Dictator : Felicitas Hernandez MD Report Date : 12/15/2017 09:39:35 IMPRESSION: Encephalomalacia involving the right temporal, right frontal, left parietal, and left occipital regions. Bilateral basal ganglia lacunar infarcts. Nonspecific white matter changes. Generalized atrophy. Please note that MRI with diffusion imaging is more sensitive in the detection of acute ischemic event. PROCEDURE: CT Cervical Spine without contrast Dictator : Tony Partida MD Report Date : 12/15/2017 09:38:07 IMPRESSION: No acute fracture or spondylolisthesis. Normal curvature identified. Facet joint degenerative arthrosis result in right C4 and C7 as well as left C5 neural foraminal stenosis without significant central canal stenosis appreciated throughout. No gross disc herniation although a small central disc protrusions are seen at C4-5 and C5-6 as well as C6-7 without generalized stenosis. EXAM: Chest X-ray Dictator : Felicitas Hernandez MD Report Date : 12/15/2017 10:05:20 IMPRESSION: Right-sided central venous catheter. Left-sided AICD. Cardiomegaly. Integrity Analyst: Radiologist - EKG Interpretation EKG Interpretation (Text): 12/15/17 08:22 EKG shows NSR at 77 BPM with PVC, LAD. Interpreted by me. Interpreted by ED Physician: Yes Type: 12 lead EKG - Scribe Statement The provider has reviewed the documentation as recorded by the Robertoibe Dmitry Helms Provider Scribe Attestation: All medical record entries made by the Arden were at my direction and personally dictated by me. I have reviewed the chart and agree that the record accurately reflects my personal performance of the history, physical exam, medical decision making, and the department course for this patient. I have also personally directed, reviewed, and agree with the discharge instructions and disposition. Disposition/Present on Arrival - Present on Arrival Any Indicators Present on Arrival: Yes History of DVT/PE: No History of Uncontrolled Diabetes: Yes Urinary Catheter: No History Surgical Site Infection Following: None - Disposition Have Diagnosis and Disposition been Completed?: Yes Diagnosis: Syncope, Fall, Hypotension Disposition: HOSPITALIZED Disposition Time: 11:20 Patient Plan: Observation Patient Problems: Current Active Problems Problem Status Onset Fall Acute Hypotension Acute Syncope Acute Condition: FAIR
[2017-12-15] MEDS ORDERED: Sodium Chloride 0.9% 1,000 ML IV STA (08:19)
[2017-12-15 08:46] LABS: BASO # 0.08 K/mm3 (0.0-2.0); BASO % 0.9 % (0.0-3.0); EOS # 0.3 (0.0-0.7); EOS % 2.8 % (1.5-5.0); GRAN # 5.23 (1.4-6.5); GRAN % 56.3 % (50.0-68.0); HEMOGLOBIN 14.7 g/dL (14.0-18.0); LYMPH # 1.2 (1.2-3.4); LYMPH % 12.7 % (22.0-35.0); MEAN CELL VOLUME 89.7 fl (80.0-105.0); MEAN CORPUSCULAR HEMOGLOBIN 29.8 pg (25.0-35.0); MEAN CORPUSCULAR HGB CONC 33.3 g/dl (31.0-37.0); MEAN PLATELET VOLUME 11.2 fl (7.0-11.0); MONO # 2.5 (0.1-0.6); MONO % 27.3 % (1.0-6.0); PLATELET COUNT 217 10^3/uL (120.0-450.0); RBC 4.93 10^6/uL (3.5-6.1); RED CELL DISTRIBUTION WIDTH 13.8 % (11.5-14.5); WHITE BLOOD COUNT 9.3 10^3/ul (4.5-11.0)
[2017-12-15 09:10] LABS: TROPONIN I 0.06 ng/mL; VENOUS BLOOD GAS BASE EXCESS 5.1 mmol/L (0.0-2.0); VENOUS BLOOD GAS PO2 34 mm/Hg (30-55); VENOUS BLOOD PH 7.36 (7.32-7.43)
[2017-12-15 09:31] LABS: ALBUMIN 3.8 g/dL (3.0-4.8); CALCIUM 8.8 mg/dL (8.4-10.5)
--- NOTE | 2017-12-15 09:39 | CT ---
Date of service: 12/15/2017 PROCEDURE: CT Cervical Spine without contrast HISTORY: fall COMPARISON: None available. TECHNIQUE: Axial computed tomography images were obtained of the cervical spine without the use of intravenous contrast. Coronal and sagittal reformatted images were created and reviewed. Radiation dose: Total exam DLP = 580.79 mGy-cm. This CT exam was performed using one or more of the following dose reduction techniques: Automated exposure control, adjustment of the mA and/or kV according to patient size, and/or use of iterative reconstruction technique. FINDINGS: VERTEBRAE: No fracture. Normal alignment. No destructive bony lesion. Moderate C1-2 degenerative changes are identified with the craniocervical junction intact. DISCS/SPINAL CANAL/NEURAL FORAMINA: Mild right C4, left C5 and right C7 neural foraminal stenosis appreciated on degenerative basis due to uncovertebral and facet joint degenerative arthrosis. Small central disc protrusions are seen at C4-5, C5-6 and C6-7 without generalized central canal stenosis.. PARASPINAL SOFT TISSUES: Unremarkable. OTHER FINDINGS: Incidental note is made of right central venous catheter and left AICD/permanent pacemaker leads at the thoracic inlet. IMPRESSION: No acute fracture or spondylolisthesis. Normal curvature identified. Facet joint degenerative arthrosis result in right C4 and C7 as well as left C5 neural foraminal stenosis without significant central canal stenosis appreciated throughout. No gross disc herniation although a small central disc protrusions are seen at C4-5 and C5-6 as well as C6-7 without generalized stenosis.
--- NOTE | 2017-12-15 09:41 | CT ---
Date of service: 12/15/2017 PROCEDURE: CT HEAD WITHOUT CONTRAST. HISTORY: fall COMPARISON: Noncontrast head CT performed 07/01/17 TECHNIQUE: Axial computed tomography images were obtained through the head/brain without intravenous contrast. Radiation dose: Total exam DLP = 971.81 mGy-cm. This CT exam was performed using one or more of the following dose reduction techniques: Automated exposure control, adjustment of the mA and/or kV according to patient size, and/or use of iterative reconstruction technique. FINDINGS: HEMORRHAGE: No intracranial hemorrhage. BRAIN: Diffuse atrophy with prominence of the ventricles and sulci noted. No mass effect or edema. Intracranial atherosclerosis. Encephalomalacia involving the right temporal, right frontal, left parietal, and left occipital regions. Bilateral basal ganglia lacunar infarcts. Scattered periventricular and subcortical white matter hypodensities, which are nonspecific, but often seen with chronic microvascular ischemic disease. Please note that MRI with diffusion imaging is more sensitive in the detection of acute ischemic event. VENTRICLES: No hydrocephalus. CALVARIUM: Unremarkable. PARANASAL SINUSES: Mucosal thickening of the left maxillary sinus. MASTOID AIR CELLS: Unremarkable as visualized. No inflammatory changes. OTHER FINDINGS: None. IMPRESSION: Encephalomalacia involving the right temporal, right frontal, left parietal, and left occipital regions. Bilateral basal ganglia lacunar infarcts. Nonspecific white matter changes. Generalized atrophy. Please note that MRI with diffusion imaging is more sensitive in the detection of acute ischemic event.
[2017-12-15 10:04] LABS: ATYPICAL LYMPHOCYTE 2 % (0.0-0.0); EOSINOPHIL 1 % (0.0-3.0); LYMPHOCYTE 8 % (22.0-35.0); MONOCYTE 17 % (1.0-6.0); NEUTROPHIL 72 % (50.0-70.0)
--- NOTE | 2017-12-15 10:06 | RAD ---
HISTORY: fall COMPARISON: Chest x-ray performed 07/20/17 TECHNIQUE: Chest, one view. FINDINGS: Examination limited by habitus and hypoinflation. The patient's chin obscures evaluation of the lung apices. Numerous wire/leads project over the chest/abdomen. Right IJ approach dialysis catheter extends to the expected location of the right atrium, somewhat obscured. LUNGS: No focal consolidation. Please note that chest x-ray has limited sensitivity for the detection of pulmonary masses. PLEURA: No significant pleural effusion identified. No definite pneumothorax . CARDIOVASCULAR: Cardiomegaly. Left-sided AICD. OSSEOUS STRUCTURES: Degenerative changes. VISUALIZED UPPER ABDOMEN: Unremarkable. OTHER FINDINGS: None. IMPRESSION: Right-sided central venous catheter. Left-sided AICD. Cardiomegaly.
[2017-12-15] MEDS: Insulin Reg-LOW-Coverage SC SCH ×3 (11:25→22:00)
--- NOTE | 2017-12-15 14:43 | CP.PCM.HP ---
<Michael Curtis - Last Filed: 12/15/17 14:14> History of Present Illness - History of Present Illness History of Present Illness: Internal Medicine History and Physical (Hospitalist Service): Danilo PGY2 CC: Near Syncope Mr. Reece is a 62 year old male with a past medical history significant for CHF s/p AICD with EF 34%, CKD (recently started on HD), CAD s/p PCI, DM2, HTN, hypothyroidism, BPH and developmental delay who was BIBA from assisted living [facility] after a near syncopal episode this morning after using the restroom. Patient was accompanied by home health aide who assisted in providing HPI information. Patient is alert and oriented to person, place, time and event. Patient reports that this morning after he awoke, he walked to the restroom without difficulty or dizziness and completed defecation. Patient states that his BM was difficult to pass and admits to straining during defecation. Afterwards, patient stood up and immediately felt lightheaded and slowly lowered himself to the bathroom floor, first landing on his knees and then completely laying down. Patient denies taking any of his blood pressure medications Of note, patient was recently discharged from [facility] [place] 24 hours prior to presentation where he was started on HD for ESRD. Patient had HD yesterday afternoon with 800ml of fluid taken off. Patient currently denies any fevers, chills, headaches, changes in his vision, LOC, neck stiffness/pain, chest pain, palpitations, SOB, cough, wheezing, abdominal pain, N/V/D/C, changes in urine output, new skin changes or any numbness/tingling/weakness of any extremity. PMH: CHF s/p AICD with EF 34%, CKD (recently started on HD), CAD s/p PCI, DM2, HTN, hypothyroidism, BPH and developmental delay PSH: HD Port, AICD, PCI Family History: Denies Social History: Denies any tobacco, alcohol or illicit drug use; Lives in assisted living [facility] with home health aide Allergies: NKDA Home Medications: ASA, Plavix, Coreg, Lipitor, Synthroid, Sevelamer and Flomax PMD: Dr. Ortiz Bingo Caller: Dr. Hlems Present on Admission - Present on Admission Any Indicators Present on Admission: No Review of Systems - Review of Systems Review of Systems: As stated in HPI, otherwise negative Past Patient History - Infectious Disease Hx of Infectious Diseases: None - Tetanus Immunizations Tetanus Immunization: Unknown - Past Medical History & Family History Past Medical History?: Yes - Past Social History Smoking Status: Never Smoked - CARDIAC Hx Cardiac Disorders: Yes (cardiac cath, coronary stent, pacemake w/ internal defibrillator) - PULMONARY Hx Chronic Obstructive Pulmonary Disease (COPD): Yes - NEUROLOGICAL Hx Neurological Disorder: Yes (MR) - HEENT Hx HEENT Problems: No - RENAL Hx Renal Failure: Yes - ENDOCRINE/METABOLIC Hx Diabetes Mellitus Type 1: Yes Hx Diabetes Mellitus Type 2: Yes Hx Hypothyroidism: Yes - HEMATOLOGICAL/ONCOLOGICAL Hx Blood Disorders: No - INTEGUMENTARY Hx Dermatological Problems: Yes - MUSCULOSKELETAL/RHEUMATOLOGICAL Hx Musculoskeletal Disorders: Yes Hx Falls: Yes - GASTROINTESTINAL Hx Gastrointestinal Disorders: No - GENITOURINARY/GYNECOLOGICAL Hx Genitourinary Disorders: No - PSYCHIATRIC Hx Psychophysiologic Disorder: Yes Hx Substance Use: No Other/Comment: Developmental delay. - SURGICAL HISTORY Hx Cardiac Catheterization: Yes Hx Coronary Stent: Yes Other/Comment: cardiac cath, pacemaker with internal defribilator - ANESTHESIA Hx Anesthesia: Yes Hx Anesthesia Reactions: No Hx Malignant Hyperthermia: No Meds Allergies/Adverse Reactions: Allergies Allergy/AdvReac Type Severity Reaction Status Date / Time No Known Allergies Allergy Verified 12/15/17 08:18 Physical Exam - Constitutional Appears: Non-toxic, No Acute Distress - Head Exam Head Exam: ATRAUMATIC, NORMOCEPHALIC - Eye Exam Eye Exam: EOMI, Normal appearance, PERRL. absent: Conjunctival injection, Nystagmus, Periorbital swelling, Periorbital tenderness, Scleral icterus Pupil Exam: NORMAL ACCOMODATION, PERRL - ENT Exam ENT Exam: Mucous Membranes Moist - Neck Exam Neck exam: Positive for: Full Rom, Normal Inspection. Negative for: Lymphadenopathy, Meningismus, Tenderness, Thyromegaly - Respiratory Exam Respiratory Exam: Clear to Auscultation Bilateral, NORMAL BREATHING PATTERN. absent: Accessory Muscle Use, Chest Wall Tenderness, Decreased Breath Sounds, Prolonged Expiratory Phase, Rales, Rhonchi, Wheezes, Respiratory Distress, Stridor - Cardiovascular Exam Cardiovascular Exam: REGULAR RHYTHM, RRR, +S1, +S2. absent: Bradycardia, Tachycardia, Clicks, Diastolic murmur, Gallop, Irregular Rhythm, JVD, Rubs, +S4, Systolic Murmur - GI/Abdominal Exam GI & Abdominal Exam: Normal Bowel Sounds, Soft. absent: Tenderness - Extremities Exam Extremities exam: Positive for: normal capillary refill, pedal pulses present. Negative for: calf tenderness Additional comments: Chronic venous stasis dermatitis noted to bilateral lower extremities - Neurological Exam Neurological exam: Alert, Oriented x3 - Psychiatric Exam Psychiatric exam: Normal Affect, Normal Mood - Skin Skin Exam: Dry, Warm Additional comments: HD port on right chest wall, surrounding soft tissue without any signs of clinical infection Results - Vital Signs Recent Vital Signs: Last Vital Signs Temp 97.8 F 12/15/17 08:15 Pulse 73 12/15/17 12:42 Resp 16 12/15/17 12:42 BP 99/66 L 12/15/17 12:42 Pulse Ox 96 12/15/17 12:42 - Labs Result Diagrams: 12/15/17 08:25 12/15/17 08:25 Labs: Laboratory Results - last 24 hr 12/15/17 12/15/17 12/15/17 08:17 08:25 08:25 WBC 9.3 RBC 4.93 Hgb 14.7 Hct 44.2 MCV 89.7 MCH 29.8 MCHC 33.3 RDW 13.8 Plt Count 217 MPV 11.2 H Gran % 56.3 Lymph % (Auto) 12.7 L [place] % (Auto) 27.3 H Eos % (Auto) 2.8 Baso % (Auto) 0.9 Gran # 5.23 Lymph # (Auto) 1.2 [place] # (Auto) 2.5 H Eos # (Auto) 0.3 Baso # (Auto) 0.08 Neutrophils % (Manual) 72 H Lymphocytes % (Manual) 8 L Atypical Lymphs % 2 H Monocytes % (Manual) 17 H Eosinophils % (Manual) 1 pO2 VBG pH VBG pCO2 VBG HCO3 VBG Total CO2 VBG O2 Sat (Calc) VBG Base Excess VBG Potassium Sodium 137 Chloride 96 L Glucose Lactate FiO2 Potassium 3.8 Carbon Dioxide 30 Anion Gap 15 BUN 33 H Creatinine 3.4 H Est GFR ( Amer) 22 Est GFR (Non-Af Amer) 18 POC Glucose (mg/dL) 93 Random Glucose 97 Calcium 8.8 Phosphorus Magnesium Total Bilirubin 0.5 AST 26 ALT 19 Alkaline Phosphatase 69 Troponin I 0.06 NT-Pro-B Natriuret Pep 4150 H Total Protein 7.6 Albumin 3.8 Globulin 3.8 Albumin/Globulin Ratio 1.0 L Venous Blood Potassium 12/15/17 12/15/17 08:25 08:25 WBC RBC Hgb Hct MCV MCH MCHC RDW Plt Count MPV Gran % Lymph % (Auto) [place] % (Auto) Eos % (Auto) Baso % (Auto) Gran # Lymph # (Auto) [place] # (Auto) Eos # (Auto) Baso # (Auto) Neutrophils % (Manual) Lymphocytes % (Manual) Atypical Lymphs % Monocytes % (Manual) Eosinophils % (Manual) pO2 34 VBG pH 7.36 VBG pCO2 57.0 VBG HCO3 32.2 H VBG Total CO2 33.9 H VBG O2 Sat (Calc) 64.8 VBG Base Excess 5.1 H VBG Potassium 4.1 Sodium 135.0 Chloride 99.0 Glucose 95 Lactate 1.8 FiO2 21.0 Potassium Carbon Dioxide Anion Gap BUN Creatinine Est GFR ( Amer) Est GFR (Non-Af Amer) POC Glucose (mg/dL) Random Glucose Calcium Phosphorus 4.5 Magnesium 2.0 Total Bilirubin AST ALT Alkaline Phosphatase Troponin I NT-Pro-B Natriuret Pep Total Protein Albumin Globulin Albumin/Globulin Ratio Venous Blood Potassium 4.1 Assessment & Plan - Assessment and Plan (Free Text) Assessment: 62 year old male with a past medical history significant for CHF s/p AICD with EF 34%, CKD (recently started on HD), CAD s/p PCI, DM2, HTN, hypothyroidism, BPH and developmental delay who was BIBA from assisted living [facility] after a near syncopal episode this morning after using the restroom. Plan: 1. Near Syncope -Likely secondary to hypotension from intravascular fluid removal at HD with noted improvement in ED -CT Head showing encephalomalacia involving the right temporal, right frontal, left parietal, and left occipital regions, bilateral basal ganglia lacunar infarcts, nonspecific white matter changes and generalized atrophy all noted to be chronic and largely unchanged from prior studies -Chest X-Ray showed no active disease -EKG showed NSR at 77bpm with normal intervals and no ST-T segment changes -Continue Normal Saline at 50mls/hr -Echocardiogram with Bubble Study, Carotid and Vertebral Duplex and Orthostatic VS pending -Neurology consulted, all recommendations appreciated -PT/OT Evaluation and Treatment pending 2. CKD on HD -Continue HD as inpatient -Continue Sevelamer 800mg MWF -Nephrology consulted, all recommendations appreciated 3. History of CAD s/p PCI -Continue home ASA, Plavix and Lipitor 4. History of HTN -Coreg currently held in setting of hypotension 5. History of Hypothyroidism -Continue home Syntroid 6. History of DM2 -ISS-Low and Accuchecks ACHS 7. History of BPH -Flomax currently held in setting hypotension GI Prophylaxis: Pepcid DVT Prophylaxis: Heparin Diet: Heart Healthy Moderate Carbohydrate Consistent Renal Dialysis Disposition: Patient noted to have hypotension on admission that has adequately responded to gentle IV hydration started in ED. Will admit to telemetry floor for further monitoring of blood pressure and fluid status. Patient seen and case discussed with attending, Dr. Izabella Snider. - Date & Time Date: 12/15/17 Time: 14:14 Decision To Admit - Pt Status Changed To: Hospital Disposition Of: Observation - . Bed Request Type: Telemetry <Izabella Snider R - Last Filed: 12/16/17 18:29> Results - Vital Signs Recent Vital Signs: Last Vital Signs Temp 98.3 F 12/16/17 12:00 Pulse 111 H 12/16/17 14:00 Resp 18 12/16/17 12:00 BP 111/71 12/16/17 12:00 Pulse Ox 94 L 12/16/17 06:00 - Labs Result Diagrams: 12/16/17 06:30 12/16/17 06:30 Labs: Laboratory Results - last 24 hr 12/16/17 12/16/17 12/16/17 06:30 06:30 07:30 WBC 10.1 RBC 4.76 Hgb 13.7 L Hct 42.4 MCV 89.1 MCH 28.8 MCHC 32.3 RDW 13.7 Plt Count 230 MPV 11.4 H Gran % 55.9 Lymph % (Auto) 15.0 L [place] % (Auto) 25.9 H Eos % (Auto) 2.1 Baso % (Auto) 1.1 Gran # 5.64 Lymph # (Auto) 1.5 [place] # (Auto) 2.6 H Eos # (Auto) 0.2 Baso # (Auto) 0.11 Sodium 137 Potassium 3.5 L Chloride 101 Carbon Dioxide 24 Anion Gap 16 BUN 47 H Creatinine 4.6 H Est GFR ( Amer) 16 Est GFR (Non-Af Amer) 13 POC Glucose (mg/dL) 96 Random Glucose 94 Calcium 8.7 Phosphorus 4.9 H Magnesium 2.1 Total Bilirubin 0.4 AST 24 ALT 19 Alkaline Phosphatase 72 Total Protein 7.3 Albumin 3.6 Globulin 3.7 Albumin/Globulin Ratio 1.0 L 12/16/17 12/16/17 12:01 16:53 WBC RBC Hgb Hct MCV MCH MCHC RDW Plt Count MPV Gran % Lymph % (Auto) [place] % (Auto) Eos % (Auto) Baso % (Auto) Gran # Lymph # (Auto) [place] # (Auto) Eos # (Auto) Baso # (Auto) Sodium Potassium Chloride Carbon Dioxide Anion Gap BUN Creatinine Est GFR ( Amer) Est GFR (Non-Af Amer) POC Glucose (mg/dL) 96 71 Random Glucose Calcium Phosphorus Magnesium Total Bilirubin AST ALT Alkaline Phosphatase Total Protein Albumin Globulin Albumin/Globulin Ratio Attending/Attestation - Attestation I have personally seen and examined this patient.: Yes I have fully participated in the care of the patient.: Yes I have reviewed all pertinent clinical information: Yes Notes (Text): Patient seen and examined by me at 12:30 PM with resident 12/15/17. Case including HPI, physical exam, and assessment and plan discussed with resident. Agree with above with following additions/corrections. Patient is a 62-year-old male with past medical history significant for systolic CHF status post ICD placement, coronary artery disease, type 2 diabetes, developmental delay, hypothyroidism, chronic kidney disease stage IV requiring dialysis, hypertension, and BPH that presented to the emergency room with near syncope. Patient states that he had dialysis yesterday. He did not eat anything after this. Patient walked to the restroom and had a bowel movement this morning. He then stood up and felt lightheaded and slowly lowered himself to the bathroom floor. Denies any loss of consciousness. Patient denies head traums. Patient did not injure himself anywhere. Patient denies any neck pain or back pain. No headaches or dizziness. No current lightheadedness. No weakness in his extremities. No tingling or numbness. No nausea, vomiting, or abdominal pain. No fevers or chills. No chest pain or shortness of breath. No difficulty urinating or dysuria. 12 point systems reviewed by me. Please see above HPI, all other systems negative. Family history. Mom and dad . Patient is unsure of their medical history. Physical exam: General: Awake and alert sitting up in bed in no acute distress HEENT: Normocephalic atraumatic. Pupils equal reactive. No scleral icterus. Oropharynx is pink and moist. Neck is supple. Hearing grossly intact. Ears and nose externally unremarkable. Cardiovascular: Normal rhythm. Normal S1, S2. No murmurs, rubs, or gallops appreciated Pulmonary: Normal respiratory effort. No rhonchi, rales or wheezing appreciated. Gastrointestinal: Soft, nondistended. Nontender. Positive bowel sounds all 4 quadrants, no guarding. Musculoskeletal: Moves all extremities, no calf tenderness, no edema appreciated. Central nervous system: AAO 3. Dermatologic: Skin warm and dry. Bilateral lower extremity with chronic skin color changes. Assessment and plan: Patient is a 62-year-old male with past medical history significant for systolic CHF status post ICD placement, coronary artery disease, type 2 diabetes, developmental delay, hypothyroidism, chronic kidney disease stage IV, hypertension, and BPH that presented with diarrhea, nausea, and vomiting. 1. Near syncope. Likely secondary to hypotension. Patient may be dehydrated. Placed on low-dose of IV fluids. Neurology consulted, follow up recommendations. CT cervical spine per radiologist showed no acute fracture or spondylolisthesis, normal curvature identified, facet joint degenerative arthrosis result in right C4 and C7 as well as left C5 neural foraminal stenosis without significant central canal stenosis appreciated throughout, no gross disc herniation although a small central disc protrusion are seen at C4 and C5 and C5 and C6 as well as C6 and C7 without generalized stenosis. Head CT per radiologist shows encephalomalacia involving the right temporal, right frontal, left parietal and left occipital regions; bilateral basal ganglia lacunar infarcts; nonspecific white matter changes; generalized atrophy. Continue aspirin, Plavix, and Lipitor 2. Hypotension. Secondary to dehydration and likely extra dialysis yesterday. Patient placed on low-dose IV fluids secondary to systolic CHF. Monitor on telemetry. 3. Chronic kidney disease now on dialysis. Nephrology consulted, follow-up re commendations. Continue Renagel. 4. Coronary artery disease. Chronic systolic CHF status post ICD. No acute issues. Continue aspirin, Plavix, and Coreg. Continue Lipitor. 5. DM type II. Placed on insulin sliding scale. Monitor Accu-Cheks. 6. Hypothyroidism. Continue home Synthroid. 7. BPH. Home Flomax held for now secondary to hypotension. 8. GI/DVT prophylaxis. Pepcid/heparin. Case was discussed in detail with the patient regarding current diagnosis and treatment plan. All questions were answered.
--- NOTE | 2017-12-15 15:15 | CARD ---
APPROVED REPORT Date of service: 12/15/2017 EKG Measurement Heart [id number] CT [id number] <Conclusion> V. paced, A sensed. One PVC.
[2017-12-15 17:49] VITALS: BMI 28.1
[2017-12-15] MEDS ORDERED: Influenza Vaccine 60 mcg/0.5 mL SYR (4YR UP) IM ONE (17:49)
[2017-12-15] MEDS ORDERED: Pneumococcal 23-Valent Vaccine IM ONE (17:49)
[2017-12-15 17:51] LABS: PH,URINE 7.5 (4.7-8.0); URINE BILIRUBIN NEGATIVE (NEGATIVE); URINE BLOOD NEGATIVE (NEGATIVE); URINE GLUCOSE (UA) NEGATIVE (NEGATIVE); URINE LEUKOCYTE ESTERASE NEGATIVE Leu/uL (NEGATIVE); URINE PROTEIN 100 mg/dL (<30 mg/dL); URINE UROBILINOGEN 0.2 E.U./dL (<1 E.U./dL)
[2017-12-15 17:58] LABS: URINE APPEARANCE SL CLOUDY (CLEAR); URINE COLOR YELLOW (YELLOW)
[2017-12-15 18:06] LABS: URINE RBC NEGATIVE /hpf (0-2)
[2017-12-15 18:07] LABS: URINE WBC NEGATIVE /hpf (0-6)
--- NOTE | 2017-12-15 19:07 | CON ---
DATE: 12/15/2017 REASON FOR CONSULTATION: Hypotension, syncopal episode at home (?). HISTORY OF PRESENTING ILLNESS: A 62-year-old male known to me from recent evaluation. The patient was discharged yesterday. The patient went for dialysis post-discharge. He had ultrafiltration of 800 mL. The patient went home. He reports that he slept well. This morning when he woke up, he went to the bathroom and slowly fell to the floor. He did not hit himself. He did not lose consciousness. He just felt very weak. He denied any chest pain. Denies any shortness of breath. At the time of presentation, his blood pressure was 78/45. The patient received IV fluid resuscitation. He got normal saline. Currently, he is lying in bed in the ER. He is awake. He is alert. He is not symptomatic. He denies any chest tightness. PAST MEDICAL/SURGICAL HISTORY: CHF, decreased ejection fraction of 30%, AICD, cardiomyopathy, CAD, PCI, NIDDM, hypertension, mental retardation, ESRD. FAMILY HISTORY: Noncontributory. SOCIAL HISTORY: No smoking, no alcohol use, no IV drug abuse, lives in assisted jail. ALLERGIES: NO KNOWN DRUG ALLERGIES. MEDICATIONS: Aspirin, Plavix, Coreg, Lipitor, Synthroid, sevelamer, Flomax. REVIEW OF SYSTEMS: All systems are reviewed, pertinent positives as mentioned in history presenting illness, rest unremarkable. PHYSICAL EXAMINATION: GENERAL: Obese elderly male lying in bed in the ER in no acute distress. VITAL SIGNS: Blood pressure 99/66, heart rate 73, respiratory rate 16, temperature 97.8. HEENT: Normocephalic, atraumatic, positive pallor. NECK: Supple, no JVD. LUNGS: Bilateral equal air entry, bilateral equal expansion, no rales. CARDIAC: S1 and S2, regular rate and rhythm, no murmur, no rub. ABDOMEN: Obese, distended, soft, nontender. Bowel sounds present. EXTREMITIES: No lower extremity edema. INTAKE AND OUTPUT: Not charted. LABORATORY DATA: WBC 9, hemoglobin 14.7, hematocrit 44, platelets 217. Sodium 137, potassium 3.8, chloride 96, CO2 30, BUN 33, creatinine 3.4, glucose 97, calcium 8.8, phosphorus 4.5, magnesium 2, albumin 3.8. ASSESSMENT: 1. Syncope (?) suspect orthostatic hypotension, likely secondary to fluid removal during dialysis yesterday. 2. Coronary artery disease, congestive heart failure, cardiomyopathy, decreased ejection fraction. 3. End-stage renal disease, still has about 13 mL of GFR, needs dialysis only two times per week. 4. No evidence of anemia. 5. Secondary hyperparathyroidism. 6. Noninsulin-dependent diabetes mellitus. 7. Developmental delay. PLAN: 1. No indication for dialysis right now. 2. Early discharge. 3. Does not need fluid removal on dialysis yet because still has good urine output. 4. Short dialysis treatment tomorrow without ultrafiltration. Kaity Helms MD
[2017-12-16] MEDS: Levothyroxine 125 MCG TAB PO SCH (06:44)
[2017-12-16 07:34] LABS: BASO # 0.11 K/mm3 (0.0-2.0); BASO % 1.1 % (0.0-3.0); EOS # 0.2 (0.0-0.7); EOS % 2.1 % (1.5-5.0); GRAN # 5.64 (1.4-6.5); GRAN % 55.9 % (50.0-68.0); HEMOGLOBIN 13.7 g/dL (14.0-18.0); LYMPH # 1.5 (1.2-3.4); MEAN CELL VOLUME 89.1 fl (80.0-105.0); MEAN CORPUSCULAR HEMOGLOBIN 28.8 pg (25.0-35.0); MEAN CORPUSCULAR HGB CONC 32.3 g/dl (31.0-37.0); MEAN PLATELET VOLUME 11.4 fl (7.0-11.0); MONO # 2.6 (0.1-0.6); MONO % 25.9 % (1.0-6.0); RBC 4.76 10^6/uL (3.5-6.1); RED CELL DISTRIBUTION WIDTH 13.7 % (11.5-14.5); WHITE BLOOD COUNT 10.1 10^3/ul (4.5-11.0)
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
[2017-12-16] MEDS: Insulin Reg-LOW-Coverage SC SCH ×4 (08:00→21:25)
[2017-12-16 08:03] LABS: ALBUMIN 3.6 g/dL (3.0-4.8); CALCIUM 8.7 mg/dL (8.4-10.5)
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
--- NOTE | 2017-12-16 15:43 | CP.PCM.PN ---
<Lavonne Mac - Last Filed: 12/16/17 15:39> Subjective - Date & Time of Evaluation Date of Evaluation: 12/16/17 Time of Evaluation: 09:15 - Subjective Subjective: PGY-1 Lavonne Mac D.O. Medicine progress note for Dr. Snider's service: Patient was seen and examined this morning. No over night events reported. Patient has no acute complaints. His ambulating without lightheadedness or dizziness. He denies LOC or falls. He is eating and sleeping well. Objective - Vital Signs/Intake and Output Vital Signs (last 24 hours): Temp Pulse Resp BP Pulse Ox 98.3 F 111 H 18 111/71 94 L 12/16/17 12:00 12/16/17 14:00 12/16/17 12:00 12/16/17 12:00 12/16/17 06:00 Intake and Output: 12/16/17 12/16/17 06:59 18:59 Intake Total 120 Output Total 100 Balance 20 - Medications Medications: Current Medications Aspirin (Ecotrin) 81 mg PO DAILY [facility] Last Admin: 12/16/17 09:49 Dose: 81 mg Atorvastatin Calcium (Lipitor) 20 mg PO DIN [facility] Last Admin: 12/15/17 18:58 Dose: 20 mg Carvedilol (Coreg) 3.125 mg PO BID [facility] Clopidogrel Bisulfate (Plavix) 75 mg PO DAILY [facility] Last Admin: 12/16/17 09:49 Dose: 75 mg Famotidine (Pepcid) 20 mg PO HS [facility] Last Admin: 12/15/17 22:45 Dose: 20 mg Heparin Sodium (Porcine) (Heparin) 5,000 units SC Q12 [facility]; Protocol Last Admin: 12/16/17 09:49 Dose: 5,000 units Insulin Human Regular (Humulin R Low) 0 units SC ACHS [facility]; Protocol Last Admin: 12/16/17 08:00 Dose: Not Given Levothyroxine Sodium (Synthroid) 125 mcg PO 0600 [facility] Last Admin: 12/16/17 06:44 Dose: 125 mcg Sevelamer HCl (Renagel) 800 mg PO TID [facility] Last Admin: 12/16/17 13:26 Dose: 800 mg Tamsulosin HCl (Flomax) 0.4 mg PO DAILY [facility] Last Admin: 12/16/17 09:49 Dose: 0.4 mg - Labs Labs: 12/16/17 06:30 12/16/17 06:30 - Constitutional Appears: Non-toxic, No Acute Distress - Head Exam Head Exam: ATRAUMATIC, NORMAL INSPECTION - Eye Exam Eye Exam: EOMI, Normal appearance - ENT Exam ENT Exam: Mucous Membranes Moist, Normal Exam - Neck Exam Neck Exam: Normal Inspection - Respiratory Exam Respiratory Exam: Clear to Ausculation Bilateral, NORMAL BREATHING PATTERN - Cardiovascular Exam Cardiovascular Exam: REGULAR RHYTHM, +S1, +S2. absent: Murmur Additional comments: Right- IJ tunneled dialysis catheter is in place - GI/Abdominal Exam GI & Abdominal Exam: Soft, Normal Bowel Sounds. absent: Tenderness - Rectal Exam Rectal Exam: Deferred - Extremities Exam Extremities Exam: Normal Capillary Refill, Normal Inspection. absent: Pedal Edema, Tenderness - Back Exam Back Exam: NORMAL INSPECTION - Neurological Exam Neurological Exam: Alert, Awake, CN II-XII Intact, Normal Gait Neuro motor strength exam: Left Upper Extremity: 5, Right Upper Extremity: 5, Left Lower Extremity: 5, Right Lower Extremity: 5 - Psychiatric Exam Psychiatric exam: Normal Affect, Normal Mood - Skin Skin Exam: Dry, Intact, Normal Color, Warm Assessment and Plan - Assessment and Plan (Free Text) Assessment: Patient is a 62 year old male with PMH of stage 4 CKD (newly on HD), CAD with AICD, T2DM, and developmental delay who presented to the ED on 12/15 after a near-syncopal episode. Patient was discharged from [facility] the day prior after being started on HD. Patient lives in supervised housing in his own apartment. Plan: Near syncope- with low-normal BP, suspect 2/2 to vasovagal and/or intravascular fluid removal at HD and/or arrhythmia - C-spine XR: - CT head: encephalomalacia involving the right temporal, right frontal, left parietal, and left occipital regions, bilateral basal ganglia lacunar infarcts, nonspecific white matter changes and generalized atrophy all noted to be chronic and largely unchanged from prior studies - CXR: no active disease - EKG: NSR (HR 77) with normal intervals and no ST-T segment changes - f/u echo with bubble study - f/u carotid u/s - Neurology consulted ([facility])- no further recs - Cardiology consulted ([facility]) - PT/OT ESRD- newly on HD last admission, patient will see Dr. Hinds as outpatient MWF dialysis, pending schedule and recs - R-IJ tunneled dialysis catheter placed on 12/07 - Vein mapping done- patient will see vasc surgeon as outpatient for AV fistula - Renagel 800 mg PO TID - Flomax 0.4 mg PO daily - Nephrology consulted ([facility]) HTN- currently hypo-normotensive - Decrease Carvedilol to 3.125 mg PO BID Vtach- single episode 12/16 - EKG: NSR (HR 77) with normal intervals and no ST-T segment changes - Cardiology consulted ([facility]) CAD - ASA 81 mg PO daily - Plavix 75 mg PO daily - Lipitor 20 mg PO QHS T2DM - A1c 7.2 - ISS low - Hypoglycemic protocol - Accuchecks ACHS Hypothyroidism - Synthroid 125 mcg PO daily IVF: not indicated Diet: heart healthy DVT ppx: Heparin 5000 units SC Q12H GI ppx: Pepcid 40 mg PO QHS Code status: full code (LAUREN waller) Case discussed with attending, Dr. Snider. <Izabella Snider R - Last Filed: 12/17/17 16:48> Objective - Vital Signs/Intake and Output Vital Signs (last 24 hours): Temp Pulse Resp BP Pulse Ox 97.8 F 82 18 97/61 L 96 12/17/17 12:00 12/17/17 14:00 12/17/17 12:00 12/17/17 12:00 12/17/17 00:01 Intake and Output: 12/17/17 12/17/17 06:59 18:59 Intake Total 1080 Output Total 500 Balance 580 - Medications Medications: Current Medications Aspirin (Ecotrin) 81 mg PO DAILY [facility] Last Admin: 12/17/17 10:39 Dose: 81 mg Atorvastatin Calcium (Lipitor) 20 mg PO DIN [facility] Last Admin: 12/16/17 17:57 Dose: 20 mg Carvedilol (Coreg) 3.125 mg PO BID [facility] Clopidogrel Bisulfate (Plavix) 75 mg PO DAILY [facility] Last Admin: 12/17/17 10:39 Dose: 75 mg Famotidine (Pepcid) 20 mg PO HS [facility] Last Admin: 12/16/17 22:05 Dose: 20 mg Heparin Sodium (Porcine) (Heparin) 5,000 units SC Q12 [facility]; Protocol Last Admin: 12/17/17 10:39 Dose: 5,000 units Insulin Human Regular (Humulin R Low) 0 units SC ACHS [facility]; Protocol Last Admin: 12/17/17 12:30 Dose: 1 unit Levothyroxine Sodium (Synthroid) 125 mcg PO 0600 [facility] Last Admin: 12/17/17 05:43 Dose: 125 mcg Sevelamer HCl (Renagel) 800 mg PO TID [facility] Last Admin: 12/17/17 13:31 Dose: 800 mg Tamsulosin HCl (Flomax) 0.4 mg PO DAILY [facility] Last Admin: 12/16/17 09:49 Dose: 0.4 mg - Labs Labs: 12/17/17 06:30 12/17/17 06:30 Attending/Attestation - Attestation I have personally seen and examined this patient.: Yes I have fully participated in the care of the patient.: Yes I have reviewed all pertinent clinical information, including history, physical exam and plan: Yes Notes (Text): Patient seen and examined by me at 1PM with resident 12/16/17. Case including HPI, physical exam, and assessment and plan discussed with resident. Agree with above with following additions/corrections. Patient is a 62-year-old male with past medical history significant for systolic CHF status post ICD placement, coronary artery disease, type 2 diabetes, developmental delay, hypothyroidism, chronic kidney disease stage IV requiring dialysis, hypertension, and BPH that presented to the emergency room with near syncope. Patient states that he feels ok. He denies any chest pain or shortness of breath. No nausea, vomiting, or abdominal pain. No headaches or dizziness. No fevers or chills. Patient denies any lightheadedness. No neck pain or back pain. No weakness in his extremities. No tingling or numbness Physical exam: General: Awake and alert sitting up in bed in no acute distress HEENT: Normocephalic atraumatic. Pupils equal reactive. No scleral icterus. Oropharynx is pink and moist. Neck is supple. Cardiovascular: Normal rhythm. Normal S1, S2. No murmurs, rubs, or gallops appreciated Pulmonary: Normal respiratory effort. No rhonchi, rales or wheezing appreciated. Gastrointestinal: Soft, nondistended. Nontender. Positive bowel sounds all 4 quadrants, no guarding. Musculoskeletal: Moves all extremities, no calf tenderness, no edema appreciated. Central nervous system: AAO 3. Dermatologic: Skin warm and dry. Bilateral lower extremity with chronic skin color changes. Assessment and plan: Patient is a 62-year-old male with past medical history significant for systolic CHF status post ICD placement, coronary artery disease, type 2 diabetes, developmental delay, hypothyroidism, chronic kidney disease stage IV requiring dialysis, hypertension, and BPH that presented to the emergency room with near syncope. 1. Near syncope. Likely secondary to hypotension. Continue IV fluids. Neurology consulted, recommendations appreciated. Continue aspirin, Plavix, and Lipitor. Pending 2d echo and carotid doppler read. CT cervical spine per radiologist showed no acute fracture or spondylolisthesis, normal curvature identified, face t joint degenerative arthrosis result in right C4 and C7 as well as left C5 neural foraminal stenosis without significant central canal stenosis appreciated throughout, no gross disc herniation although a small central disc protrusion are seen at C4 and C5 and C5 and C6 as well as C6 and C7 without generalized stenosis. Head CT per radiologist shows encephalomalacia involving the right temporal, right frontal, left parietal and left occipital regions; bilateral basal ganglia lacunar infarcts; nonspecific white matter changes; generalized atrophy. 2. Hypotension. May be secondary to dehydration. Patient placed on low-dose IV fluids secondary to systolic CHF. Cardiology consulted, follow up r ecommendations 3. 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 Patient asymptomatic. Pending 2d echo results. 4. Chronic kidney disease now on dialysis. Nephrology consulted, follow-up recommendations. Continue Renagel. 5. Coronary artery disease. Chronic systolic CHF status post ICD. No acute i ssues. Continue aspirin, Plavix, and Coreg. Continue Lipitor. 6. DM type II. Continue insulin sliding scale. Continue to monitor Accu-Cheks. 7. Hypothyroidism. Continue home Synthroid. 8. BPH. Home Flomax held for now secondary to hypotension. 9. GI/DVT prophylaxis. Pepcid/heparin. Case was discussed in detail with the patient regarding current diagnosis and treatment plan. All questions were answered.
--- NOTE | 2017-12-16 18:40 | PN ---
DATE: 12/16/2017 SUBJECTIVE: The patient is seen in the dialysis unit. He is awake, he is alert, he is comfortable. PHYSICAL EXAMINATION: GENERAL: Elderly male lying in bed. VITAL SIGNS: Blood pressure 98/63, heart rate 111, respiratory rate 18, and temperature 98.3. HEENT: Normocephalic, atraumatic. NECK: Supple, no JVD. LUNGS: Bilateral equal air entry, bilateral equal expansion. CARDIAC: S1 and S2, regular rate and rhythm, positive murmur, no rub. ABDOMEN: Obese, distended, soft, nontender, bowel sounds present. EXTREMITIES: No lower extremity edema. LABORATORY DATA: WBC 10, hemoglobin 13.7, hematocrit 42, and platelets 230. Sodium 137, potassium 3.5, chloride 101, CO2 of 24. BUN 47, creatinine 4.6. Glucose 94. Calcium 8.7, phosphorus 4.9, magnesium 2.1. Albumin 3.6. CURRENT MEDICATIONS: List reviewed. ASSESSMENT: 1. Status post syncope, ?related to hypotension. 2. Congestive heart failure, cardiomyopathy, coronary artery disease. 3. End-stage renal disease. 4. Hypokalemia. PLAN: 1. Dialysis today with no ultrafiltration. 2. Dialysis with a potassium 4 bath. 3. Monitor vital signs in three positions. 4. Early discharge, recommend dialysis two times per week as outpatient for the time being. Kaity Helms MD
[2017-12-17] MEDS: Levothyroxine 125 MCG TAB PO SCH (05:43)
[2017-12-17 07:10] LABS: BASO # 0.07 K/mm3 (0.0-2.0); BASO % 1.1 % (0.0-3.0); EOS # 0.4 (0.0-0.7); EOS % 5.6 % (1.5-5.0); GRAN # 3.08 (1.4-6.5); GRAN % 46.2 % (50.0-68.0); HEMOGLOBIN 13.6 g/dL (14.0-18.0); LYMPH # 1.2 (1.2-3.4); LYMPH % 18.5 % (22.0-35.0); MEAN CELL VOLUME 90.1 fl (80.0-105.0); MEAN CORPUSCULAR HEMOGLOBIN 28.6 pg (25.0-35.0); MEAN CORPUSCULAR HGB CONC 31.8 g/dl (31.0-37.0); MEAN PLATELET VOLUME 11.5 fl (7.0-11.0); MONO # 1.9 (0.1-0.6); MONO % 28.6 % (1.0-6.0); RBC 4.75 10^6/uL (3.5-6.1); RED CELL DISTRIBUTION WIDTH 13.6 % (11.5-14.5); WHITE BLOOD COUNT 6.7 10^3/ul (4.5-11.0)
[2017-12-17 07:17] LABS: ALBUMIN 3.3 g/dL (3.0-4.8); CALCIUM 9.1 mg/dL (8.4-10.5)
[2017-12-17] MEDS: Insulin Reg-LOW-Coverage SC SCH ×4 (08:30→21:35)
--- NOTE | 2017-12-17 08:43 | CARD ---
APPROVED REPORT Date of service: 12/16/2017 EXAM: Two-dimensional and M-mode echocardiogram with Doppler and color Doppler. Other Information Quality : AverageRhythm : INDICATION Syncope 2D DIMENSIONS Left Atrium (2D)4.2 (1.6-4.0cm)IVSd1.2 (0.7-1.1cm) LVDd6.4 (3.9-5.9cm)PWd1.2 (0.7-1.1cm) LVDs5.8 (2.5-4.0cm)FS (%) 9.5 % LVEF (%)20.0 (>50%) M-Mode DIMENSIONS Aortic Root3.40 (2.2-3.7cm)Aortic Cusp Exc.1.80 (1.5-2.0cm) Aortic Valve AoV Peak Fwvlomxv615.0cm/s Mitral Valve MV E Awcjohig02.1cm/sMV A Owntytnc56.5cm/sE/A ratio0.6 TDI Lateral E' Peak V4.97cm/sMedial E' Peak V4.48cm/sE/Lateral E'11.3 E/Medial E'12.5 Pulmonary Valve PV Peak Wpeebqdw31.0cm/sPV Peak Grad.2mmHg Tricuspid Valve TR Peak Tkettqpf952qc/sRAP [id number] Peak Gr.27mmHg [id number] LEFT VENTRICLE The Left Ventricle is moderately dilated. There is normal left ventricular wall thickness. Left ventricle systolic function is severely impaired. The Ejection Fraction is - 20 % There is severe global hypokinesis. RIGHT VENTRICLE The right ventricle is normal size. There is a pacemaker/ ICD lead in the right ventricle. ATRIA The left atrium is mildly dilated. The right atrium size is normal. There is a pacemaker/ICD lead seen in the right atrium. The interatrial septum is intact with no evidence for an atrial septal defect. AORTIC VALVE The aortic valve is mildly to moderately calcified. MITRAL VALVE The mitral valve is normal in structure. Mitral annular calcification is mild. The subvalvular structures are calcified. Mitral regurgitation is mild. TRICUSPID VALVE The tricuspid valve is not well visualized. There is trace tricuspid regurgitation. PULMONIC VALVE The pulmonic valve is not well visualized. There is mild pulmonic valvular regurgitation. GREAT VESSELS The aortic root is normal in size. PERICARDIAL EFFUSION There is no pericardial effusion. <Conclusion> The Left Ventricle is moderately dilated. There is normal left ventricular wall thickness. Left ventricle systolic function is severely impaired. The Ejection Fraction is - 20 % There is severe global hypokinesis. The aortic valve is mildly to moderately calcified. Aortic sclerosis. Mitral regurgitation is mild. There is trace tricuspid regurgitation. There is mild pulmonic valvular regurgitation.
--- NOTE | 2017-12-17 12:03 | CP.PCM.PN ---
<Michael Curtis - Last Filed: 12/17/17 11:37> Subjective - Date & Time of Evaluation Date of Evaluation: 12/17/17 Time of Evaluation: 11:37 - Subjective Subjective: Internal Medicine Progress Note(Hospitalist Service): Danilo PGY2 Patient seen and assessed at bedside. No overnight events noted by patient or nursing staff. Patient denies any complaints at this time including fevers, chills, headache, chest pain, SOB, cough, wheezing, abdominal pain, N/V/D/C, changes in urine output or skin changes. Objective - Vital Signs/Intake and Output Vital Signs (last 24 hours): Temp Pulse Resp BP Pulse Ox 99.2 F 76 18 108/66 96 12/17/17 00:01 12/17/17 05:33 12/17/17 00:01 12/17/17 00:01 12/17/17 00:01 Intake and Output: 12/17/17 12/17/17 06:59 18:59 Intake Total 1080 Output Total 500 Balance 580 - Medications Medications: Current Medications Aspirin (Ecotrin) 81 mg PO DAILY [facility] Last Admin: 12/17/17 10:39 Dose: 81 mg Atorvastatin Calcium (Lipitor) 20 mg PO DIN [facility] Last Admin: 12/16/17 17:57 Dose: 20 mg Carvedilol (Coreg) 3.125 mg PO BID [facility] Clopidogrel Bisulfate (Plavix) 75 mg PO DAILY [facility] Last Admin: 12/17/17 10:39 Dose: 75 mg Famotidine (Pepcid) 20 mg PO HS [facility] Last Admin: 12/16/17 22:05 Dose: 20 mg Heparin Sodium (Porcine) (Heparin) 5,000 units SC Q12 [facility]; Protocol Last Admin: 12/17/17 10:39 Dose: 5,000 units Insulin Human Regular (Humulin R Low) 0 units SC ACHS [facility]; Protocol Last Admin: 12/17/17 08:30 Dose: 1 unit Levothyroxine Sodium (Synthroid) 125 mcg PO 0600 [facility] Last Admin: 12/17/17 05:43 Dose: 125 mcg Sevelamer HCl (Renagel) 800 mg PO TID [facility] Last Admin: 12/17/17 10:39 Dose: 800 mg Tamsulosin HCl (Flomax) 0.4 mg PO DAILY [facility] Last Admin: 09/28/18 09:49 Dose: 0.4 mg - Labs Labs: 12/17/17 06:30 12/17/17 06:30 - Constitutional Appears: Non-toxic, No Acute Distress - Head Exam Head Exam: ATRAUMATIC, NORMOCEPHALIC - Eye Exam Eye Exam: EOMI, Normal appearance, PERRL - ENT Exam ENT Exam: Mucous Membranes Moist - Neck Exam Neck Exam: Full ROM - Respiratory Exam Respiratory Exam: Clear to Ausculation Bilateral, NORMAL BREATHING PATTERN. absent: Accessory Muscle Use, Chest Wall Tenderness, Decreased Breath Sounds, Prolonged Expiratory Phase, Rales, Rhonchi, Wheezes, Respiratory Distress, Stridor - Cardiovascular Exam Cardiovascular Exam: REGULAR RHYTHM, RRR, +S1, +S2. absent: Bradycardia, Tachycardia, Clicks, Diastolic murmur, Gallop, Irregular Rhythm, JVD, Rubs, +S4, Murmur - GI/Abdominal Exam GI & Abdominal Exam: Soft, Normal Bowel Sounds. absent: Tenderness - Extremities Exam Extremities Exam: absent: Calf Tenderness - Neurological Exam Neurological Exam: Alert, Awake, Oriented x3 - Psychiatric Exam Psychiatric exam: Normal Affect, Normal Mood - Skin Skin Exam: Dry, Intact, Normal Color, Warm Assessment and Plan - Assessment and Plan (Free Text) Assessment: 62 year old male with a past medical history significant for CHF s/p AICD with EF 34%, CKD (recently started on HD), CAD s/p PCI, DM2, HTN, hypothyroidism, BPH and developmental delay who was BIBA from assisted living correction after a near syncopal episode. Plan: 1. Near Syncope -Likely secondary to hypotension from intravascular fluid removal at HD with noted improvement in ED -CT Head showing encephalomalacia involving the right temporal, right frontal, left parietal, and left occipital regions, bilateral basal ganglia lacunar infarcts, nonspecific white matter changes and generalized atrophy all noted to be chronic and largely unchanged from prior studies -CT Cervical Spine showing no acute fractures -Echocardiogram showed severely impaired systolic function with severe global hypokinesis and an ejection fraction of 20% -Carotid and Vertebral Duplex pending official radiologist interpretation -Orthostatic VS negative -Neurology consulted, all recommendations appreciated -PT recommending home with services upon discharge 2. CKD on HD -Continue HD as inpatient -Continue Sevelamer 800mg TID -Vein Mapping completed and patient will see Vascular Surgery as an outpatient for AV fistula -Nephrology consulted, all recommendations appreciated 3. Ventricular Tachycardia -14 beats noted on telemetry monitoring -Cardiology consulted, all recommendations appreciated 4. History of CAD s/p PCI -Continue home ASA, Plavix and Lipitor 5. History of HTN -Coreg currently held in setting of hypotension 6. History of Hypothyroidism -Continue home Syntroid 7. History of DM2 -ISS-Low and Accuchecks ACHS 8. History of BPH -Flomax currently held in setting hypotension GI Prophylaxis: Pepcid DVT Prophylaxis: Heparin Diet: Heart Healthy Moderate Carbohydrate Consistent Renal Dialysis Disposition: Patient noted to have improving hypotension since admission. Patient was also noted to have an episode of ventricular tachycardia and is awaiting cardiac consultation for further recommendations. Patient seen and case discussed with attending, Dr. Izabella Snider. <Izabella Snider R - Last Filed: 12/20/17 17:55> Objective - Vital Signs/Intake and Output Vital Signs (last 24 hours): Temp Pulse Resp BP Pulse Ox 97.8 F 82 20 135/81 97 12/20/17 12:00 12/20/17 12:00 12/20/17 12:00 12/20/17 12:00 12/20/17 06:00 Intake and Output: 12/20/17 12/20/17 06:59 18:59 Intake Total 420 Output Total 2 Balance 418 - Labs Labs: 12/20/17 09:00 12/20/17 09:00 Attending/Attestation - Attestation I have personally seen and examined this patient.: Yes I have fully participated in the care of the patient.: Yes I have reviewed all pertinent clinical information, including history, physical exam and plan: Yes Notes (Text): Patient seen and examined by me at 9:25AM with resident 12/17/17. Case including HPI, physical exam, and assessment and plan discussed with resident. Agree with above with following additions/corrections. Patient is a 62-year-old male with past medical history significant for systolic CHF status post ICD placement, coronary artery disease, type 2 diabetes, developmental delay, hypothyroidism, chronic kidney disease stage IV requiring dialysis, hypertension, and BPH that presented to the emergency room with near syncope. Patient states that he feels fine. Patient no longer with any lightheadedness. No chest pain or shortness of breath. No nausea, vomiting, or abdominal pain. No headaches or dizziness. No fevers or chills. No neck pain or back pain. No weakness in his extremities. No tingling or numbness. No dysuria. Physical exam: General: Awake and alert sitting up in bed in no acute distress HEENT: Normocephalic atraumatic. Pupils equal reactive. No scleral icterus. Oropharynx is pink and moist. Neck is supple. Cardiovascular: Normal rhythm. Normal S1, S2. No murmurs, rubs, or gallops appreciated Pulmonary: Normal respiratory effort. No rhonchi, rales or wheezing appreciated. Gastrointestinal: Soft, nondistended. Nontender. Positive bowel sounds all 4 quadrants, no guarding. Musculoskeletal: Moves all extremities, no calf tenderness, no edema appreciated. Central nervous system: AAO 3. Dermatologic: Skin warm and dry. Bilateral lower extremity with chronic skin color changes. Assessment and plan: Patient is a 62-year-old male with past medical history significant for systolic CHF status post ICD placement, coronary artery disease, type 2 diabetes, developmental delay, hypothyroidism, chronic kidney disease stage IV requiring dialysis, hypertension, and BPH that presented to the emergen cy room with near syncope. 1. Near syncope. Likely secondary to hypotension. Hypotension resolved. Neurology following, recommendations appreciated. Continue aspirin, Plavix, and Lipitor. 2-D echo per imaging technician shows left ventricle is moderately dilated, normal left ventricular wall thickness, left ventricle systolic function severely impaired, ejection fraction is approximately 20%, severe global hypokinesis, aortic valve mildly to moderately calcified, mitral regurgitation is mild, trace tricuspid regurgitation, mild pulmonic valvular regurgitation.Pending carotid Doppler read. CT cervical spine per radiologist showed no acute fracture or spondylolisthesis, normal curvature identified, facet joint degenerative arthrosis result in right C4 and C7 as well as left C5 neural foraminal stenosis without significant central canal stenosis appreciated throughout, no gross disc herniation although a small central disc protrusion are seen at C4 and C5 and C5 and C6 as well as C6 and C7 without generalized stenosis. Head CT per radiologist shows encephalomalacia involving the right temporal, right frontal, left parietal and left occipital regions; bilateral basal ganglia lacunar infarcts; nonspecific white matter changes; generalized atrophy. 2. Hypotension. May be secondary to dehydration. Resolved. Cardiology following, recommendations appreciated. 3. 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 Patient asymptomatic. 2d echo as above. Cardiology following, recommendations appreciated 4. Chronic kidney disease now on dialysis. Nephrology following, recommendations appreciated. Continue HD per nephrology. Continue Renagel. 5. Coronary artery disease. Chronic systolic CHF status post ICD. No acute issues. Continue aspirin, Plavix, and Coreg. Continue Lipitor. 6. DM type II. Continue insulin sliding scale. Continue to monitor Accu-Cheks. 7. Hypothyroidism. Continue home Synthroid. 8. BPH. Home Flomax held for now secondary to hypotension. 9. GI/DVT prophylaxis. Pepcid/heparin. Case was discussed in detail with the patient regarding current diagnosis and treatment plan. All questions were answered.
--- NOTE | 2017-12-18 01:39 | CON ---
DATE: 12/17/2017 HISTORY OF PRESENT ILLNESS: The patient is a 62-year-old, mentally challenged male who has a history of CHF, history of ICD placement, history of coronary stenting in the past and history of end-stage renal disease, on hemodialysis, who was admitted because of syncopal episode. The patient states that he was in the bathroom and collapsed, but does not recall why and how it happened. Patient does not recall experiencing palpitation. Patient states that his pacemaker was placed by a chronic specialist at [place] and he goes for checkup for that and had battery replacement once in the past. The patient denies any chest pain at this time. SOCIAL HISTORY: Nonsmoker, nondrinker. He lives in a intermediate. MEDICATIONS: Coreg 3.125 mg twice a day, aspirin 81 mg once a day, heparin 5000 units subcutaneously every 12 hours, Lipitor 20 mg once a day, Plavix 75 mg once a day, Renagel 800 mg t.i.d., Synthroid 125 mcg once a day. REVIEW OF SYSTEMS: The patient was noted to have 15-beats runoff nonsustained ventricular tachycardia on the monitor. PHYSICAL EXAMINATION: GENERAL: The patient is a middle-aged male who does not appear to be in acute distress. VITAL SIGNS: Blood pressure 97/61, heart rate 79, temperature 97.8, respirations 18. HEENT: Normocephalic. CHEST: Minimal basilar rhonchi. HEART: S1 and S2 regular. ABDOMEN: Soft. EXTREMITIES: 1+ pitting edema with chronic bilateral leg skin changes. LABORATORY DATA: Hemoglobin and hematocrit 15.6 and 42.8, white count and platelet count are within normal limits. SMA-7 today: Sodium 138, potassium 3.8, chloride 103, CO2 of 24, glucose 149, BUN 41, creatinine 4. Echocardiographic study revealed ejection fraction at 20% with severe global hypokinesis, aortic sclerosis, and mild pulmonary hypertension. EKG revealed atrial sensed, ventricular paced rhythm. Head CT scan without contrast, encephalomalacia involving right temporal, right frontal and left parietal, and left occipital region, bilateral basal ganglia lacunar infarct with generalized atrophy. Cervical spine CT scan, no acute fracture. Chest x-ray revealed significant cardiomegaly, biventricular pacemaker with an ICD lead. ASSESSMENT: 1. Syncopal episode. 2. Cardiomyopathy, status post implantable cardioverter-defibrillator and biventricular pacemaker placement. 3. End-stage renal disease, on hemodialysis. 4. Multiple cerebrovascular accidents in the past with residual encephalomalacia involving the right temporal, right frontal, left parietal, and left occipital regions with bilateral basal ganglia lacunar infarct. RECOMMENDATIONS: Continue Coreg 3.125 mg once a day, aspirin 81 mg once a day, subcutaneous heparin 5000 units every 12 hours, Lipitor 20 mg once a day, Plavix 75 mg once a day, Synthroid 125 mcg once a day. The case will further be discussed with Dr. Pineda, original chronic specialist on Tuesday for possible electrophysiology evaluation. Hilario Moffett MD
[2017-12-18] MEDS: Levothyroxine 125 MCG TAB PO SCH (05:33)
[2017-12-18 08:04] LABS: BASO # 0.05 K/mm3 (0.0-2.0); BASO % 0.6 % (0.0-3.0); EOS # 0.8 (0.0-0.7); EOS % 9.7 % (1.5-5.0); GRAN # 4.03 (1.4-6.5); GRAN % 51.8 % (50.0-68.0); HEMOGLOBIN 14.6 g/dL (14.0-18.0); LYMPH # 1.8 (1.2-3.4); LYMPH % 23.2 % (22.0-35.0); MEAN CELL VOLUME 90.4 fl (80.0-105.0); MEAN CORPUSCULAR HEMOGLOBIN 29.2 pg (25.0-35.0); MEAN CORPUSCULAR HGB CONC 32.3 g/dl (31.0-37.0); MEAN PLATELET VOLUME 11.4 fl (7.0-11.0); MONO # 1.2 (0.1-0.6); MONO % 14.7 % (1.0-6.0); RED CELL DISTRIBUTION WIDTH 13.6 % (11.5-14.5); WHITE BLOOD COUNT 7.8 10^3/ul (4.5-11.0)
[2017-12-18 08:16] LABS: ALBUMIN 4.1 g/dL (3.0-4.8); CALCIUM 9.5 mg/dL (8.4-10.5)
[2017-12-18] MEDS: Insulin Reg-LOW-Coverage SC SCH ×4 (08:24→22:05)
--- NOTE | 2017-12-18 15:18 | PN ---
DATE: 12/18/2017 SUBJECTIVE: The patient is seen sitting in chair. He is awake. He is alert. He is comfortable. He does not appear to be in any kind of distress. PHYSICAL EXAMINATION VITAL SIGNS: Blood pressure 111/74, heart rate 74, respiratory rate 18, temperature 97.5. NECK: Supple, no JVD. LUNGS: Bilateral equal air entry, no rales. EXTREMITIES: No lower extremity edema. LABORATORY DATA: Hemoglobin 14.6. Sodium 139, potassium 4.2, chloride 104, CO2 of 23, BUN 53, creatinine 4.6, glucose 121, calcium 9.5, phosphorus 4.2, magnesium 2.1, albumin 4.1. CURRENT MEDICATIONS: Coreg, aspirin, Flomax, heparin, Lipitor, Pepcid, Plavix, Renagel, Synthroid. ASSESSMENT: 1. End-stage renal disease, needs dialysis two times a week for the time being. 2. Congestive heart failure, cardiomyopathy, decreased ejection fraction. 3. Secondary hyperparathyroidism. 4. Status post syncope? versus fall secondary to orthostatic hypotension. PLAN: 1. Clear for discharge from the renal standpoint. 2. Outpatient dialysis to be handled by Dr. Hinds. 3. Recommend dialysis Tuesday and Tuesday for the time being. 4. Discussed with residents. Kaity Helms MD
--- NOTE | 2017-12-18 16:07 | CP.PCM.PN ---
<Michael Curtis - Last Filed: 12/18/17 16:00> Subjective - Date & Time of Evaluation Date of Evaluation: 12/18/17 Time of Evaluation: 16:00 - Subjective Subjective: Internal Medicine Progress Note(Hospitalist Service): Danilo PGY2 Patient seen and assessed at bedside. No overnight events noted by patient or nursing staff. Patient continues to deny any complaints at this time including fevers, chills, headache, chest pain, SOB, cough, wheezing, abdominal pain, N/V/D/C, changes in urine output or skin changes. Objective - Vital Signs/Intake and Output Vital Signs (last 24 hours): Temp Pulse Resp BP Pulse Ox 97.6 F 72 18 122/83 98 12/18/17 12:00 12/18/17 12:00 12/18/17 12:00 12/18/17 12:00 12/18/17 05:39 Intake and Output: 12/18/17 12/18/17 06:59 18:59 Intake Total 560 Output Total 800 Balance -240 - Medications Medications: Current Medications Aspirin (Ecotrin) 81 mg PO DAILY [facility] Last Admin: 12/18/17 11:10 Dose: 81 mg Atorvastatin Calcium (Lipitor) 20 mg PO DIN [facility] Last Admin: 12/17/17 18:20 Dose: 20 mg Carvedilol (Coreg) 3.125 mg PO BID [facility] Clopidogrel Bisulfate (Plavix) 75 mg PO DAILY [facility] Last Admin: 12/18/17 11:10 Dose: 75 mg Famotidine (Pepcid) 20 mg PO HS [facility] Last Admin: 12/17/17 22:05 Dose: 20 mg Heparin Sodium (Porcine) (Heparin) 5,000 units SC Q12 [facility]; Protocol Last Admin: 12/18/17 11:10 Dose: 5,000 units Insulin Human Regular (Humulin R Low) 0 units SC ACHS [facility]; Protocol Last Admin: 12/18/17 13:23 Dose: 1 unit Levothyroxine Sodium (Synthroid) 125 mcg PO 0600 [facility] Last Admin: 12/18/17 05:33 Dose: 125 mcg Sevelamer HCl (Renagel) 800 mg PO TID [facility] Last Admin: 12/18/17 13:23 Dose: 800 mg Tamsulosin HCl (Flomax) 0.4 mg PO DAILY [facility] Last Admin: 12/16/17 09:49 Dose: 0.4 mg - Labs Labs: 12/18/17 07:00 12/18/17 07:00 - Constitutional Appears: Non-toxic, No Acute Distress - Head Exam Head Exam: ATRAUMATIC, NORMOCEPHALIC - Eye Exam Eye Exam: EOMI, Normal appearance - ENT Exam ENT Exam: Mucous Membranes Moist - Neck Exam Neck Exam: Full ROM - Respiratory Exam Respiratory Exam: Clear to Ausculation Bilateral, NORMAL BREATHING PATTERN. absent: Accessory Muscle Use, Decreased Breath Sounds, Rales, Rhonchi, Wheezes, Respiratory Distress - Cardiovascular Exam Cardiovascular Exam: REGULAR RHYTHM, RRR, +S1, +S2 - GI/Abdominal Exam GI & Abdominal Exam: Soft, Normal Bowel Sounds. absent: Tenderness - Extremities Exam Extremities Exam: absent: Calf Tenderness - Neurological Exam Neurological Exam: Alert, Awake - Psychiatric Exam Psychiatric exam: Normal Affect, Normal Mood - Skin Skin Exam: Dry, Intact, Normal Color, Warm Assessment and Plan - Assessment and Plan (Free Text) Assessment: 62 year old male with a past medical history significant for CHF s/p AICD with EF 34%, CKD (recently started on HD), CAD s/p PCI, DM2, HTN, hypothyroidism, BPH and developmental delay who was BIBA from assisted living [facility] after a near syncopal episode. Plan: 1. Near Syncope -Likely secondary to hypotension from intravascular fluid removal at HD with noted improvement in ED -CT Head showing encephalomalacia involving the right temporal, right frontal, left parietal, and left occipital regions, bilateral basal ganglia lacunar infarcts, nonspecific white matter changes and generalized atrophy all noted to be chronic and largely unchanged from prior studies -CT Cervical Spine showing no acute fractures -Echocardiogram showed severely impaired systolic function with severe global hypokinesis and an ejection fraction of 20% -Carotid and Vertebral Duplex pending official radiologist interpretation -Orthostatic VS negative -Neurology consulted, all recommendations appreciated -PT recommending home with services upon discharge 2. CKD on HD -Continue HD as inpatient -Continue Sevelamer 800mg TID -Vein Mapping completed and patient will see Vascular Surgery as an outpatient for AV fistula -Nephrology consulted, all recommendations appreciated 3. Ventricular Tachycardia -Patient to have ICD interrogated either tonight or tomorrow morning by [employer] representative -14 beats noted on telemetry monitoring -Cardiology consulted, all recommendations appreciated 4. History of CAD s/p PCI -Continue home ASA, Plavix and Lipitor 5. History of HTN -Coreg currently held in setting of hypotension 6. History of Hypothyroidism -Continue home Synthroid 7. History of DM2 -ISS-Low and Accuchecks ACHS 8. History of BPH -Flomax currently held in setting hypotension GI Prophylaxis: Pepcid DVT Prophylaxis: Heparin Diet: Heart Healthy Moderate Carbohydrate Consistent Renal Dialysis Disposition: Patient was also noted to have an episode of ventricular tachycardia and is awaiting ICD interrogation from [employer] representative. Patient seen and case discussed with attending, Dr. Izabella Snider. <Izabella Snider R - Last Filed: 12/20/17 18:01> Objective - Vital Signs/Intake and Output Vital Signs (last 24 hours): Temp Pulse Resp BP Pulse Ox 97.8 F 82 20 135/81 97 12/20/17 12:00 12/20/17 12:00 12/20/17 12:00 12/20/17 12:00 12/20/17 06:00 Intake and Output: 12/20/17 12/20/17 06:59 18:59 Intake Total 420 Output Total 2 Balance 418 - Labs Labs: 12/20/17 09:00 12/20/17 09:00 Attending/Attestation - Attestation I have personally seen and examined this patient.: Yes I have fully participated in the care of the patient.: Yes I have reviewed all pertinent clinical information, including history, physical exam and plan: Yes Notes (Text): Patient seen and examined by me at 9:35AM with resident 12/18/17. Case including HPI, physical exam, and assessment and plan discussed with resident. Agree with above with following additions/corrections. Patient is a 62-year-old male with past medical history significant for systolic CHF status post ICD placement, coronary artery disease, type 2 diabetes, developmental delay, hypothyroidism, chronic kidney disease stage IV requiring dialysis, hypertension, and BPH that presented to the emergency room with near syncope. Patient states that he feels pretty good. Patient eating well. Ambulating well. Lightheadedness resolved. No chest pain or shortness of breath. No nausea, vomiting, or abdominal pain. No headaches or dizziness. No fevers or chills. No neck pain or back pain. No weakness in his extremities. No tingling or numbness. No dysuria. Physical exam: General: Awake and alert sitting up in bed in no acute distress HEENT: Normocephalic atraumatic. Pupils equal reactive. No scleral icterus. Oropharynx is pink and moist. Neck is supple. Cardiovascular: Normal rhythm. Normal S1, S2. No murmurs, rubs, or gallops appreciated Pulmonary: Normal respiratory effort. No rhonchi, rales or wheezing appreciated. Gastrointestinal: Soft, nondistended. Nontender. Positive bowel sounds all 4 quadrants, no guarding. Musculoskeletal: Moves all extremities, no calf tenderness, no edema appreciated. Central nervous system: AAO 3. Dermatologic: Skin warm and dry. Bilateral lower extremity with chronic skin color changes. Assessment and plan: Patient is a 62-year-old male with past medical history significant for systolic CHF status post ICD placement, coronary artery disease, type 2 diabetes, developmental delay, hypothyroidism, chronic kidney disease stage IV requiring dialysis, hypertension, and BPH that presented to the emergency room with near syncope. 1. Near syncope. Likely secondary to hypotension. Resolved. Neurology consulted, recommendations appreciated. Cardiology consulted, recommendations appreciated. Pending ICD interrogation. Continue aspirin, Plavix, and Lipitor. 2-D echo per cleater shows left ventricle is moderately dilated, normal left ventricular wall thickness, left ventricle systolic function severely impaired, ejection fraction is approximately 20%, severe global hypokinesis, aortic valve mildly to moderately calcified, mitral regurgitation is mild, trace tricuspid regurgitation, mild pulmonic valvular regurgitation. CT cervical spine per radiologist showed no acute fracture or spondylolisthesis, normal curvature identified, facet joint degenerative arthrosis result in right C4 and C7 as well as left C5 neural foraminal stenosis without significant central canal stenosis appreciated throughout, no gross disc herniation although a small central disc protrusion are seen at C4 and C5 and C5 and C6 as well as C6 and C7 without generalized stenosis. Head CT per radiologist shows encephalomalacia involving the right temporal, right frontal, left parietal and left occipital regions; bilateral basal ganglia lacunar infarcts; nonspecific white matter changes; generalized atrophy. 2. Hypotension. May be secondary to dehydration. Resolved. Cardiology following, recommendations appreciated. 3. Nonsustained vtach seen on equine internship. Patient asymptomatic. 2-D echo as above. Pending ICD interrogation. 4. Chronic kidney disease now on dialysis. Nephrology following, recommendations appreciated. Continue Renagel. 5. Coronary artery disease. Chronic systolic CHF status post ICD. Continue aspirin, Plavix, and Coreg. Continue Lipitor. Cardiology following, recommen dations appreciated. Pending ICD interrogation 6. DM type II. Continue insulin sliding scale. Continue to monitor Accu-Cheks. 7. Hypothyroidism. Continue Synthroid. 8. BPH. Home Flomax held for now secondary to hypotension. 9. GI/DVT prophylaxis. Pepcid/heparin. Case was discussed in detail with the patient and cleater regarding current diagnosis and treatment plan. All questions were answered.
--- NOTE | 2017-12-18 16:34 | US ---
PROCEDURE: Bilateral carotid artery duplex ultrasound HISTORY: Carotid stenosis PHYSICIAN(S): Merlin Nagy MD. TECHNIQUE: Duplex sonography and color-flow Doppler were used to evaluate the carotid bifurcations and limited segments of the vertebral arteries bilaterally. FINDINGS: There is mild smooth heterogeneous plaque noted at the carotid bifurcations bilaterally. The peak systolic velocity in the proximal right internal carotid artery is 70 sec. This corresponds to a 20 to 39% proximal right ICA stenosis. Normal systolic velocities are noted in the proximal right external carotid artery. There is antegrade flow in the right vertebral artery. The peak systolic velocity in the proximal left internal carotid artery is 69 cm/second. This corresponds to a 20-39 percent proximal left ICA stenosis. Normal velocities are seen in the proximal left external carotid artery. There is antegrade flow in the left vertebral artery. IMPRESSION: 1. Bilateral 20-39% proximal ICA stenoses. 2. Antegrade flow in both vertebral arteries.
--- NOTE | 2017-12-18 18:33 | PN ---
DATE: 12/18/2017 SUBJECTIVE: Patient denied any dizziness. No chest pain. No reported ventricular tachycardia today. PHYSICAL EXAMINATION: VITAL SIGNS: Blood pressure 122/83, heart rate is 72, temperature 97.6, respiration 18. HEENT: Normocephalic. CHEST: Minimal rhonchi. HEART: S1 and S2 regular. EXTREMITIES: 1+ pitting edema. LABORATORY DATA: Today's hemoglobin and hematocrit is 14.6 and 45.2. White count and platelet count are within normal limit. Today's SMA-7, sodium 139, potassium 4.2, chloride 104, CO2 23, glucose 121, BUN 53, creatinine 4.6. ASSESSMENT: 1. Status post syncopal episode. 2. Cardiomyopathy status post implantable defibrillator and biventricular pacemaker. 3. End-stage renal disease, on hemodialysis. 4. History of multiple cerebrovascular accidents with residual encephalomalacia involving the right temporal, right frontal, left parietal, and left occipital regions with bilateral basal ganglia lacunar infarct. RECOMMENDATIONS: Case was discussed with the medical team including Dr. Snider. A [employer] patient support representative will be called to interrogate the ICD prior to the patient's discharge to follow up with his own [employer]. In the meantime, the patient will be maintained on Coreg 3.125 mg twice a day, aspirin 81 mg once a day, Lipitor 20 mg once a day, Plavix 75 mg once a day, Synthroid 125 mcg once a day. Hilario Moffett MD
[2017-12-19] MEDS: Levothyroxine 125 MCG TAB PO SCH (05:21)
[2017-12-19 07:23] LABS: BASO # 0.03 K/mm3 (0.0-2.0); BASO % 0.4 % (0.0-3.0); EOS # 0.5 (0.0-0.7); EOS % 6.4 % (1.5-5.0); GRAN # 5.11 (1.4-6.5); GRAN % 65.8 % (50.0-68.0); HEMOGLOBIN 14.5 g/dL (14.0-18.0); LYMPH # 1.1 (1.2-3.4); LYMPH % 14.4 % (22.0-35.0); MEAN CELL VOLUME 89.4 fl (80.0-105.0); MEAN CORPUSCULAR HEMOGLOBIN 29.1 pg (25.0-35.0); MEAN CORPUSCULAR HGB CONC 32.5 g/dl (31.0-37.0); RBC 4.99 10^6/uL (3.5-6.1); RED CELL DISTRIBUTION WIDTH 13.5 % (11.5-14.5); WHITE BLOOD COUNT 7.8 10^3/ul (4.5-11.0)
[2017-12-19 07:48] LABS: CALCIUM 9.4 mg/dL (8.4-10.5)
[2017-12-19] MEDS: Insulin Reg-LOW-Coverage SC SCH ×4 (08:38→21:44)
--- NOTE | 2017-12-19 15:01 | CP.PCM.DIS ---
<Lavonne Mac - Last Filed: 12/19/17 14:55> Provider - Provider Date of Admission: 12/17/17 17:18 Attending physician: Cecile Rahman MD Primary care physician: Dr. Ortiz Consults: Cardiology Nephrology Neurology Time Spent in preparation of Discharge (in minutes): 45 Diagnosis - Discharge Diagnosis (1) Hypotension Status: Resolved Priority: High (2) Near syncope Status: Resolved Priority: High (3) CHF (congestive heart failure) Status: Chronic Priority: Medium (4) ESRD on dialysis Status: Chronic Priority: Medium Hospital Course - Lab Results Lab Results: Most Recent Lab Values WBC 7.8 10^3/ul (4.5-11.0) 12/19/17 06:30 RBC 4.99 10^6/uL (3.5-6.1) 12/19/17 06:30 Hgb 14.5 g/dL (14.0-18.0) 12/19/17 06:30 Hct 44.6 % (42.0-52.0) 12/19/17 06:30 MCV 89.4 fl (80.0-105.0) 12/19/17 06:30 MCH 29.1 pg (25.0-35.0) 12/19/17 06:30 MCHC 32.5 g/dl (31.0-37.0) 12/19/17 06:30 RDW 13.5 % (11.5-14.5) 12/19/17 06:30 Plt Count 236 10^3/uL (120.0-450.0) 12/19/17 06:30 MPV 11.0 fl (7.0-11.0) 12/19/17 06:30 Gran % 65.8 % (50.0-68.0) 12/19/17 06:30 Lymph % (Auto) 14.4 % (22.0-35.0) L 12/19/17 06:30 [place] % (Auto) 13.0 % (1.0-6.0) H 12/19/17 06:30 Eos % (Auto) 6.4 % (1.5-5.0) H 12/19/17 06:30 Baso % (Auto) 0.4 % (0.0-3.0) 12/19/17 06:30 Gran # 5.11 (1.4-6.5) 12/19/17 06:30 Lymph # (Auto) 1.1 (1.2-3.4) L 12/19/17 06:30 [place] # (Auto) 1.0 (0.1-0.6) H 12/19/17 06:30 Eos # (Auto) 0.5 (0.0-0.7) 12/19/17 06:30 Baso # (Auto) 0.03 K/mm3 (0.0-2.0) 12/19/17 06:30 Neutrophils % (Manual) 72 % (50.0-70.0) H 12/15/17 08:25 Lymphocytes % (Manual) 8 % (22.0-35.0) L 12/15/17 08:25 Atypical Lymphs % 2 % (0.0-0.0) H 12/15/17 08:25 Monocytes % (Manual) 17 % (1.0-6.0) H 12/15/17 08:25 Eosinophils % (Manual) 1 % (0.0-3.0) 12/15/17 08:25 pO2 34 mm/Hg (30-55) 12/15/17 08:25 VBG pH 7.36 (7.32-7.43) 12/15/17 08:25 VBG pCO2 57.0 (40-60) 12/15/17 08:25 VBG HCO3 32.2 mmol/l (21-28) H 12/15/17 08:25 VBG Total CO2 33.9 mmol.L (22-28) H 12/15/17 08:25 VBG O2 Sat (Calc) 64.8 % (40-65) 12/15/17 08:25 VBG Base Excess 5.1 mmol/L (0.0-2.0) H 12/15/17 08:25 VBG Potassium 4.1 mmol/L (3.6-5.2) 12/15/17 08:25 Sodium 135.0 mmol/L (132-148) 12/15/17 08:25 Chloride 99.0 mmol/L (98-107) 12/15/17 08:25 Glucose 95 mg/dl (75-110) 12/15/17 08:25 Lactate 1.8 mmol/L (0.7-2.1) 12/15/17 08:25 FiO2 21.0 % 12/15/17 08:25 Sodium 140 mmol/L (132-148) 12/19/17 06:30 Potassium 4.9 mmol/L (3.6-5.0) 12/19/17 06:30 Chloride 107 mmol/L (98-107) 12/19/17 06:30 Carbon Dioxide 21 mmol/L (21-33) 12/19/17 06:30 Anion Gap 17 (10-20) 12/19/17 06:30 BUN 55 mg/dL (7-21) H 12/19/17 06:30 Creatinine 4.3 mg/dl (0.8-1.5) H 12/19/17 06:30 Est GFR ( Amer) 17 12/19/17 06:30 Est GFR (Non-Af Amer) 14 12/19/17 06:30 POC Glucose (mg/dL) 112 mg/dL (65-110) H 12/19/17 07:10 Random Glucose 125 mg/dL (70-110) H 12/19/17 06:30 Calcium 9.4 mg/dL (8.4-10.5) 12/19/17 06:30 Phosphorus 3.9 mg/dL (2.5-4.5) 12/19/17 06:30 Magnesium 2.0 mg/dL (1.7-2.2) 12/19/17 06:30 Total Bilirubin 0.5 mg/dL (0.2-1.3) 12/19/17 06:30 AST 30 U/L (17-59) 12/19/17 06:30 ALT 19 U/L (7-56) 12/19/17 06:30 Alkaline Phosphatase 76 U/L (38-126) 12/19/17 06:30 Troponin I 0.06 ng/mL 12/15/17 08:25 NT-Pro-B Natriuret Pep 4150 pg/mL (0-450) H 12/15/17 08:25 Total Protein 8.0 g/dL (5.8-8.3) 12/19/17 06:30 Albumin 4.0 g/dL (3.0-4.8) 12/19/17 06:30 Globulin 3.9 gm/dL 12/19/17 06:30 Albumin/Globulin Ratio 1.0 (1.1-1.8) L 12/19/17 06:30 Venous Blood Potassium 4.1 mmol/L (3.6-5.2) 12/15/17 08:25 Urine Color Yellow (YELLOW) 12/15/17 17:00 Urine Appearance Sl cloudy (CLEAR) 12/15/17 17:00 Urine pH 7.5 (4.7-8.0) 12/15/17 17:00 Ur Specific Winslow 1.010 (1.005-1.035) 12/15/17 17:00 Urine Protein 100 mg/dL (<30 mg/dL) H 12/15/17 17:00 Urine Glucose (UA) Negative mg/dL (NEGATIVE) 12/15/17 17:00 Urine Ketones Negative mg/dL (NEGATIVE) 12/15/17 17:00 Urine Blood Negative (NEGATIVE) 12/15/17 17:00 Urine Nitrate Negative (NEGATIVE) 12/15/17 17:00 Urine Bilirubin Negative (NEGATIVE) 12/15/17 17:00 Urine Urobilinogen 0.2 E.U./dL (<1 E.U./dL) 12/15/17 17:00 Ur Leukocyte Esterase Negative Bishop/uL (NEGATIVE) 12/15/17 17:00 Urine RBC Negative /hpf (0-2) 12/15/17 17:00 Urine WBC Negative /hpf (0-6) 12/15/17 17:00 - Hospital Course Hospital Course: 62 y/o male with past medical history of CHF s/p AICD, CKD (recently started on HD last week), CAD s/p PCI, DM2, HTN, hypothyroidism, BPH and developmental delay who was BIBA from assisted living retirement after a near-syncopal event on 12/15/17 after using the restroom. Patient denied taking his BP medications. Patient was recently discharged from [facility] 24 hours prior to presentation to the ED where he was started on HD for ESRD. Day before presentation, pt had HD with 800ml of fluid taken off. Upon admission, patient was non-toxic, in no acute distress, alert and oriented x3. There was an HD port on right chest wall without any signs of clinical infection. CT head showed no acute changes. CT cervical spine was negative for fractures. Chest X-ray showed no active disease. Neurology and nephrology were consulted. HD was continued on MWF schedule. Initially, coreg and flomax were held in the setting of hypotension. On 12/16, patient had a single episode of ventricular tachycardia at a rate of 111bpm. Cardiology was consulted who recommended decreasing Coreg and continuing aspirin, Lipitor, plavix, and synthroid. Hypotension was steadily improving since admission. Repeat echo showed severely impaired systolic function with severe global hypokinesis and an ejection fraction of 20%. AICD was interrogated and did not show any events. On morning of discharge, patient was in no acute distress and was alert and oriented x3. Lightheadedness completely resolved. There have been no falls during hospital stay and patient has been ambulating well. Hypotension has resolved since admission. BP today was 113/76 and has been stable. Patient has HD on MWF and has been tolerating it well. Patient is tolerating PO intake well without nausea, vomiting, diarrhea, or constipation. Discharge Exam - Head Exam Head Exam: ATRAUMATIC, NORMOCEPHALIC - Eye Exam Eye Exam: EOMI, Normal appearance - ENT Exam ENT Exam: Mucous Membranes Moist, Normal Exam - Neck Exam Neck exam: Normal Inspection - Respiratory Exam Respiratory Exam: Clear to PA & Lateral, NORMAL BREATHING PATTERN, UNREMARKABLE - Cardiovascular Exam Cardiovascular Exam: REGULAR RHYTHM, +S1, +S2 - GI/Abdominal Exam GI & Abdominal Exam: Normal Bowel Sounds, Soft, Unremarkable - Rectal Exam Rectal Exam: Deferred - Extremities Exam Extremities exam: normal inspection, pedal pulses present - Back Exam Back exam: NORMAL INSPECTION - Neurological Exam Neurological exam: Alert, CN II-XII Intact, Normal Gait, Oriented x3 - Psychiatric Exam Psychiatric exam: Normal Affect, Normal Mood - Skin Skin Exam: Dry, Intact, Normal Color, Warm Discharge Plan - Discharge Medications Prescriptions: Carvedilol [Coreg] 3.125 mg PO BID 30 Days tab Sevelamer [Renagel] 800 mg PO TID 30 Days tab - Follow Up Plan Condition: IMPROVED Disposition: HOME/ ROUTINE Patient education suggested?: Yes Instructions: Dialysis Diet , Preventing Falls in the Older Adult, Hemodialysis (DC), Dialysis and Diet, Syncope (DC) Additional Instructions: You are being discharged from [facility] after being evaluated for an episode of lightheadedness and almost passing out. Your AICD was interrogated and did not find any abnormalities. Please follow-up with your primary care physician, Dr. Ortiz, within 3-5 days of discharge. You primary care provider will continue to manage your diabetes medications if needed. You will be receiving dialysis at [facility] outpatient dialysis unit every Tuesday, Tuesday, and Tuesday under the care of facilities maintenance assistant, Dr. Hinds. Do not take BP meds on dialysis days before going to dialysis unless Dr. Hinds instructs otherwise. Please follow-up with vascular surgeon, Dr. Philippe, within 1 week for AV fistula for dialysis. Your dose of Coreg (carvedilol) has been decreased to 3.125 mg twice daily. Please resume all other home medications. Note that on your previous admission (12/14/17), your home metformin, furosemide (Lasix), Protonix (pantoprazole), calcitriol, and phoslo were discontinued. If symptoms return, please present to the nearest emergency room. Referrals: Luly Ortiz MD [Family Provider] - Henrry Hinds MD [Staff Provider] - Reji Grossman MD [Staff Provider] - <Cecile Rahman - Last Filed: 12/21/17 07:59> Provider - Provider Date of Admission: 12/17/17 17:18 Attending physician: Cecile Rahman MD Hospital Course - Lab Results Lab Results: Most Recent Lab Values WBC 10.3 10^3/ul (4.5-11.0) D 12/20/17 09:00 RBC 5.27 10^6/uL (3.5-6.1) 12/20/17 09:00 Hgb 15.5 g/dL (14.0-18.0) 12/20/17 09:00 Hct 47.3 % (42.0-52.0) 12/20/17 09:00 MCV 89.8 fl (80.0-105.0) 12/20/17 09:00 MCH 29.4 pg (25.0-35.0) 12/20/17 09:00 MCHC 32.8 g/dl (31.0-37.0) 12/20/17 09:00 RDW 13.6 % (11.5-14.5) 12/20/17 09:00 Plt Count 214 10^3/uL (120.0-450.0) 12/20/17 09:00 MPV 11.2 fl (7.0-11.0) H 12/20/17 09:00 Gran % 56.8 % (50.0-68.0) 12/20/17 09:00 Lymph % (Auto) 17.4 % (22.0-35.0) L 12/20/17 09:00 [place] % (Auto) 17.6 % (1.0-6.0) H 12/20/17 09:00 Eos % (Auto) 8.0 % (1.5-5.0) H 12/20/17 09:00 Baso % (Auto) 0.2 % (0.0-3.0) 12/20/17 09:00 Gran # 5.84 (1.4-6.5) 12/20/17 09:00 Lymph # (Auto) 1.8 (1.2-3.4) 12/20/17 09:00 [place] # (Auto) 1.8 (0.1-0.6) H 12/20/17 09:00 Eos # (Auto) 0.8 (0.0-0.7) H 12/20/17 09:00 Baso # (Auto) 0.02 K/mm3 (0.0-2.0) 12/20/17 09:00 Neutrophils % (Manual) 72 % (50.0-70.0) H 12/15/17 08:25 Lymphocytes % (Manual) 8 % (22.0-35.0) L 12/15/17 08:25 Atypical Lymphs % 2 % (0.0-0.0) H 12/15/17 08:25 Monocytes % (Manual) 17 % (1.0-6.0) H 12/15/17 08:25 Eosinophils % (Manual) 1 % (0.0-3.0) 12/15/17 08:25 pO2 34 mm/Hg (30-55) 12/15/17 08:25 VBG pH 7.36 (7.32-7.43) 12/15/17 08:25 VBG pCO2 57.0 (40-60) 12/15/17 08:25 VBG HCO3 32.2 mmol/l (21-28) H 12/15/17 08:25 VBG Total CO2 33.9 mmol.L (22-28) H 12/15/17 08:25 VBG O2 Sat (Calc) 64.8 % (40-65) 12/15/17 08:25 VBG Base Excess 5.1 mmol/L (0.0-2.0) H 12/15/17 08:25 VBG Potassium 4.1 mmol/L (3.6-5.2) 12/15/17 08:25 Sodium 135.0 mmol/L (132-148) 12/15/17 08:25 Chloride 99.0 mmol/L (98-107) 12/15/17 08:25 Glucose 95 mg/dl (75-110) 12/15/17 08:25 Lactate 1.8 mmol/L (0.7-2.1) 12/15/17 08:25 FiO2 21.0 % 12/15/17 08:25 Sodium 142 mmol/L (132-148) 12/20/17 09:00 Potassium 4.2 mmol/L (3.6-5.0) 12/20/17 09:00 Chloride 103 mmol/L (98-107) 12/20/17 09:00 Carbon Dioxide 27 mmol/L (21-33) 12/20/17 09:00 Anion Gap 16 (10-20) 12/20/17 09:00 BUN 32 mg/dL (7-21) H 12/20/17 09:00 Creatinine 3.5 mg/dl (0.8-1.5) H 12/20/17 09:00 Est GFR ( Amer) 22 12/20/17 09:00 Est GFR (Non-Af Amer) 18 12/20/17 09:00 POC Glucose (mg/dL) 232 mg/dL (65-110) H 12/20/17 12:06 Random Glucose 167 mg/dL (70-110) H 12/20/17 09:00 Calcium 9.5 mg/dL (8.4-10.5) 12/20/17 09:00 Phosphorus 2.9 mg/dL (2.5-4.5) 12/20/17 09:00 Magnesium 2.0 mg/dL (1.7-2.2) 12/20/17 09:00 Total Bilirubin 0.8 mg/dL (0.2-1.3) 12/20/17 09:00 AST 30 U/L (17-59) 12/20/17 09:00 ALT 20 U/L (7-56) 12/20/17 09:00 Alkaline Phosphatase 80 U/L (38-126) 12/20/17 09:00 Troponin I 0.06 ng/mL 12/15/17 08:25 NT-Pro-B Natriuret Pep 4150 pg/mL (0-450) H 12/15/17 08:25 Total Protein 8.7 g/dL (5.8-8.3) H 12/20/17 09:00 Albumin 4.4 g/dL (3.0-4.8) 12/20/17 09:00 Globulin 4.3 gm/dL 12/20/17 09:00 Albumin/Globulin Ratio 1.0 (1.1-1.8) L 12/20/17 09:00 Venous Blood Potassium 4.1 mmol/L (3.6-5.2) 12/15/17 08:25 Urine Color Yellow (YELLOW) 12/15/17 17:00 Urine Appearance Sl cloudy (CLEAR) 12/15/17 17:00 Urine pH 7.5 (4.7-8.0) 12/15/17 17:00 Ur Specific [place] 1.010 (1.005-1.035) 12/15/17 17:00 Urine Protein 100 mg/dL (<30 mg/dL) H 12/15/17 17:00 Urine Glucose (UA) Negative mg/dL (NEGATIVE) 12/15/17 17:00 Urine Ketones Negative mg/dL (NEGATIVE) 12/15/17 17:00 Urine Blood Negative (NEGATIVE) 12/15/17 17:00 Urine Nitrate Negative (NEGATIVE) 12/15/17 17:00 Urine Bilirubin Negative (NEGATIVE) 12/15/17 17:00 Urine Urobilinogen 0.2 E.U./dL (<1 E.U./dL) 12/15/17 17:00 Ur Leukocyte Esterase Negative Bishop/uL (NEGATIVE) 12/15/17 17:00 Urine RBC Negative /hpf (0-2) 12/15/17 17:00 Urine WBC Negative /hpf (0-6) 12/15/17 17:00 Attending/Attestation - Attestation I have personally seen and examined this patient.: Yes I have fully participated in the care of the patient.: Yes I have reviewed all pertinent clinical information, including history, physical exam and plan: Yes Notes (Text): 12/21/17 07:55 Attending note ; Patient seen and examined with resident. Patient is a 62-year-old male with past medical history significant for systolic CHF status post ICD placement, coronary artery disease, type 2 diabetes, developmental delay, hypothyroidism, chronic kidney disease stage IV requiring dialysis, hypertension, and BPH that presented to the emergency room with near syncope. 1. Near syncope. Likely secondary to hypotension. Patient was recently started on dialysis. Currently still getting adjusted with hemodynamic changes associated with volume status during dialysis. Neurology and cardiology evaluation appreciated . Pending ICD interrogation. Continue aspirin, Plavix, and Lipitor. Echocardiogram shows left ventricle is moderately dilated, normal left ventricular wall thickness, left ventricle systolic function severely impaired, ejection fraction is approximately 20%, severe global hypokinesis, aortic valve mildly to moderately calcified, mitral regurgitation is mild, trace tricuspid regurgitation, mild pulmonic valvular regurgitation. CT cervical spine showed no acute fracture or spondylolisthesis, normal curvature identified, facet joint degenerative arthrosis result in right C4 and C7 as well as left C5 neural foraminal stenosis without significant central canal stenosis appreciated throughout, no gross disc herniation although a small central disc protrusion are seen at C4 and C5 and C5 and C6 as well as C6 and C7 without generalized stenosis. Head CT shows encephalomalacia involving the right temporal, right frontal, left parietal and left occipital regions; bilateral basal ganglia lacunar infarcts; nonspecific white matter changes; generalized atrophy. 2. Hypotension. May be secondary to volume changes during dialysis after fluid removal . Resolved. 3. Nonsustained vtach seen on air sampling and monitoring. Patient asymptomatic. 2-D echo as above. Pending ICD interrogation. 4. Chronic kidney disease now on dialysis. Follow-up with nephrology closely. Continue Renagel. 5. Coronary artery disease. Chronic systolic CHF status post ICD. Continue aspirin, Plavix, and Coreg. Continue Lipitor. Cardiology following, recommendations appreciated. Pending ICD interrogation 6. DM type II. Continue insulin sliding scale. Continue to monitor Accu-Cheks. 7. Hypothyroidism. Continue Synthroid. Case was discussed in detail with the patient and agency service coordinator regarding current diagnosis and treatment plan. All questions were answered.
--- NOTE | 2017-12-19 17:13 | CP.PCM.PN ---
<Lavonne Mac - Last Filed: 12/19/17 17:09> Subjective - Date & Time of Evaluation Date of Evaluation: 12/19/17 Time of Evaluation: 07:30 - Subjective Subjective: PGY-1 Lavonne Mac D.O. Medicine progress note for Dr. Rahman's service: Patient was seen and examined this morning. No over night events reported, inc luding Vtach on telemetry. Patient is feeling well. he denies lighthededness or dizziness. He is eating and sleeping well. Denies fevers, chills, chest pain, sob, diarrhea, constipation, abdominal pain. Objective - Vital Signs/Intake and Output Vital Signs (last 24 hours): Temp Pulse Resp BP Pulse Ox 97.4 F L 85 18 113/76 98 12/19/17 05:49 12/19/17 10:00 12/19/17 05:49 12/19/17 05:49 12/19/17 05:49 Intake and Output: 12/19/17 12/19/17 06:59 18:59 Intake Total 120 Output Total 450 Balance -330 - Medications Medications: Current Medications Aspirin (Ecotrin) 81 mg PO DAILY [facility] Last Admin: 12/19/17 16:16 Dose: 81 mg Atorvastatin Calcium (Lipitor) 20 mg PO DIN [facility] Last Admin: 12/18/17 17:58 Dose: 20 mg Carvedilol (Coreg) 3.125 mg PO BID [facility] Clopidogrel Bisulfate (Plavix) 75 mg PO DAILY [facility] Last Admin: 12/19/17 16:16 Dose: 75 mg Famotidine (Pepcid) 20 mg PO HS [facility] Last Admin: 12/18/17 22:05 Dose: 20 mg Heparin Sodium (Porcine) (Heparin) 5,000 units SC Q12 [facility]; Protocol Last Admin: 12/19/17 16:16 Dose: 5,000 units Insulin Human Regular (Humulin R Low) 0 units SC ACHS [facility]; Protocol Last Admin: 12/19/17 12:35 Dose: Not Given Levothyroxine Sodium (Synthroid) 125 mcg PO 0600 [facility] Last Admin: 12/19/17 05:21 Dose: 125 mcg Sevelamer HCl (Renagel) 800 mg PO TID [facility] Last Admin: 12/19/17 16:16 Dose: 800 mg Tamsulosin HCl (Flomax) 0.4 mg PO DAILY [facility] Last Admin: 12/16/17 09:49 Dose: 0.4 mg - Labs Labs: 12/19/17 06:30 12/19/17 06:30 - Constitutional Appears: Non-toxic, No Acute Distress - Head Exam Head Exam: ATRAUMATIC, NORMAL INSPECTION - Eye Exam Eye Exam: EOMI, Normal appearance, PERRL - ENT Exam ENT Exam: Mucous Membranes Moist, Normal Exam - Neck Exam Neck Exam: Normal Inspection - Respiratory Exam Respiratory Exam: Clear to Ausculation Bilateral, NORMAL BREATHING PATTERN - Cardiovascular Exam Cardiovascular Exam: REGULAR RHYTHM, +S1, +S2 - GI/Abdominal Exam GI & Abdominal Exam: Soft, Normal Bowel Sounds. absent: Tenderness - Rectal Exam Rectal Exam: Deferred - Extremities Exam Extremities Exam: Normal Inspection. absent: Pedal Edema - Back Exam Back Exam: NORMAL INSPECTION - Neurological Exam Neurological Exam: Alert, Awake, CN II-XII Intact, Normal Gait, Oriented x3 Neuro motor strength exam: Left Upper Extremity: 5, Right Upper Extremity: 5, Left Lower Extremity: 5, Right Lower Extremity: 5 - Psychiatric Exam Psychiatric exam: Normal Affect, Normal Mood - Skin Skin Exam: Dry, Intact, Normal Color, Warm Assessment and Plan (1) Hypotension Status: Resolved (2) Near syncope Status: Resolved (3) CHF (congestive heart failure) Status: Chronic (4) ESRD on dialysis Status: Chronic - Assessment and Plan (Free Text) Assessment: Patient is a 62 year old male with PMH of stage 4 CKD (newly on HD), CAD with AICD, T2DM, and developmental delay who presented to the ED on 12/15 after a near-syncopal episode. Patient was discharged from [facility] the day prior after being started on HD. Patient lives in supervised housing in his own apartment. Patient was found to be hypotensive. Additionally, he had one episode of Vtach. AICD to be interrogated by [facility]. Plan: Near syncope- with low-normal BP, suspect 2/2 to vasovagal and/or intravascular fluid removal at HD and/or arrhythmia - C-spine CT: no acute fx - CT head: encephalomalacia involving the right temporal, right frontal, left parietal, and left occipital regions, bilateral basal ganglia lacunar infarcts, nonspecific white matter changes and generalized atrophy all noted to be chronic and largely unchanged from prior studies - CXR: no active disease - EKG: NSR (HR 77) with normal intervals and no ST-T segment changes - f/u echo with bubble study - f/u carotid u/s - Neurology consulted (Hilario)- no further recs - Cardiology consulted (Zuhair)- interrogate ICD - PT/OT ESRD- newly on HD last admission, patient will see Dr. Hinds as outpatient MWF dialysis, pending schedule and recs - R-IJ tunneled dialysis catheter placed on 12/07 - Vein mapping done- patient will see vasc surgeon as outpatient for AV fistula - Renagel 800 mg PO TID - Flomax 0.4 mg PO daily - Nephrology consulted (Analia) Vtach- single episode of 14 beats on 12/16 - EKG: NSR (HR 77) with normal intervals and no ST-T segment changes - Echocardiogram: EF 20%, severely impaired systolic function with severe global hypokinesis - f/u ICD interrogation by [facility] - Cardiology consulted (Zuhair) HTN- currently normotensive - Carvedilol to 3.125 mg PO BID- decreased this admission CAD - ASA 81 mg PO daily - Plavix 75 mg PO daily - Lipitor 20 mg PO QHS T2DM - A1c 7.2 - ISS low - Hypoglycemic protocol - Accuchecks ACHS Hypothyroidism - Synthroid 125 mcg PO daily IVF: not indicated Diet: heart healthy DVT ppx: Heparin 5000 units SC Q12H GI ppx: Pepcid 40 mg PO QHS Code status: full code (LAUREN Torres cousin) Case discussed with attending, Dr. Rahman. <Cecile Rahman - Last Filed: 12/21/17 08:01> Objective - Vital Signs/Intake and Output Vital Signs (last 24 hours): Temp Pulse Resp BP Pulse Ox 97.8 F 82 20 135/81 97 12/20/17 12:00 12/20/17 12:00 12/20/17 12:00 12/20/17 12:00 12/20/17 06:00 - Labs Labs: 12/20/17 09:00 12/20/17 09:00 Attending/Attestation - Attestation I have personally seen and examined this patient.: Yes I have fully participated in the care of the patient.: Yes I have reviewed all pertinent clinical information, including history, physical exam and plan: Yes Notes (Text): 12/21/17 07:59 Attending note ; Patient seen and examined with resident. Patient is a 62-year-old male with past medical history significant for systolic CHF status post ICD placement, coronary artery disease, type 2 diabetes, developmental delay, hypothyroidism, chronic kidney disease stage IV requiring dialysis, hypertension, and BPH that presented to the emergency room with near syncope. 1. Near syncope. Likely secondary to hypotension. Patient was recently started on dialysis. Currently still getting adjusted with hemodynamic changes associated with volume status during dialysis. Neurology and cardiology evaluation appreciated . AICD interrogation done. Continue aspirin, Plavix, and Lipitor. 2. Hypotension. resolved. PATTY inhibitor on hold . Coreg dosage decreased. May be secondary to volume changes during dialysis after fluid removal . 3. Nonsustained vtach seen on media monitor. Patient asymptomatic. 4. Chronic kidney disease now on dialysis. Follow-up with nephrology closely. Continue Renagel. 5. Coronary artery disease. Chronic systolic CHF status post ICD. Continue aspirin, Plavix, and Coreg. Continue Lipitor. Cardiology following, recommendations appreciated. 6. DM type II. Continue insulin sliding scale. Continue to monitor Accu-Cheks. 7. Hypothyroidism. Continue Synthroid. Case discussed with Dr. Lizarraga in detail. Patient will get AICD adjustments. Possible discharge home today. Case was discussed in detail with the patient and slip tender regarding current diagnosis and treatment plan. All questions were answered.
--- NOTE | 2017-12-19 22:24 | PN ---
DATE: 12/19/2017 FOLLOWUP SUBJECTIVE: The patient is currently undergoing hemodialysis. He denies any chest pain or dizziness. According to statement that the interrogation of the ICD was unremarkable. PHYSICAL EXAMINATION: VITAL SIGNS: Blood pressure 115/66, heart rate 91, temperature 97.4, respirations 18. HEENT: Normocephalic. CHEST: Clear. HEART: S1 and S2, regular. EXTREMITIES: Improved leg edema with chronic bilateral lower extremity skin changes. LABORATORY DATA: Hemoglobin and hematocrit 14.5 and 44.6, white count and platelet count are within normal limit. Today's BUN and creatinine are 55 and 4.3 respectively. Glucose 125. The rest of SMA-7 is within normal limit. ASSESSMENT: 1. Cardiomyopathy, status post implantable cardioverter-defibrillator placement. 2. Status post syncopal episode and a fall. 3. End-stage renal disease, on hemodialysis. 4. Multiple history of multiple bilateral cerebrovascular accidents. RECOMMENDATIONS: Continue current Coreg 3.125 mg twice a day, aspirin 81 mg once a day, heparin 5000 units subcutaneous twice a day, Lipitor 20 mg once a day, Pepcid 20 mg p.o. once a day, Plavix 75 mg once a day, Synthroid 125 mcg once a day. The patient can be discharged from the cardiac point of view and will be followed by his own last model maker at [place]. Hilario Moffett MD
--- NOTE | 2017-12-20 02:21 | PN ---
DATE: 12/19/2017 SUBJECTIVE: The patient is seen in the dialysis unit. He is awake, he is alert, he is comfortable. He denies any pain. PHYSICAL EXAMINATION: GENERAL: Elderly male lying in bed in the dialysis unit. VITAL SIGNS: Blood pressure 113/76, heart rate 91, respiratory rate 18, temperature 97.4. HEENT: Normocephalic, atraumatic, positive pallor. NECK: Supple, no JVD. LUNGS: Bilateral equal air entry, bilateral equal expansion, no rales. CARDIAC: S1 and S2, regular rate and rhythm, no murmur, no rub. ABDOMEN: Obese, distended, soft, nontender, bowel sounds present. INTAKE AND OUTPUT: 720/900. LABORATORY DATA: WBC 7.8, hemoglobin 14.5, hematocrit 45, platelets 236. Sodium 140, potassium 4.9, chloride 107, CO2 21, BUN 55, creatinine 4.3, glucose 125, calcium 9.4, phosphorus 3.9, magnesium 2. MEDICATIONS: List reviewed. ASSESSMENT: 1. End-stage renal disease, stable dialysis, needs dialysis Tuesday and Tuesday for the time being. 2. Congestive heart failure, cardiomyopathy, automatic implantable cardioverter-defibrillator. 3. Status post presyncope, hypotension. 4. No evidence of anemia. PLAN: 1. Stable dialysis. 2. No objection to discharge. 3. Recommend dialysis two times a week for the time being. Kaity Helms MD
[2017-12-20 06:42] VITALS: O2SAT 97
[2017-12-20] MEDS: Levothyroxine 125 MCG TAB PO SCH (06:53)
[2017-12-20] MEDS: Insulin Reg-LOW-Coverage SC SCH ×2 (08:23→12:30)
[2017-12-20 09:23] LABS: BASO # 0.02 K/mm3 (0.0-2.0); BASO % 0.2 % (0.0-3.0); EOS # 0.8 (0.0-0.7); GRAN # 5.84 (1.4-6.5); GRAN % 56.8 % (50.0-68.0); HEMOGLOBIN 15.5 g/dL (14.0-18.0); LYMPH # 1.8 (1.2-3.4); LYMPH % 17.4 % (22.0-35.0); MEAN CELL VOLUME 89.8 fl (80.0-105.0); MEAN CORPUSCULAR HEMOGLOBIN 29.4 pg (25.0-35.0); MEAN CORPUSCULAR HGB CONC 32.8 g/dl (31.0-37.0); MEAN PLATELET VOLUME 11.2 fl (7.0-11.0); MONO # 1.8 (0.1-0.6); MONO % 17.6 % (1.0-6.0); RBC 5.27 10^6/uL (3.5-6.1); RED CELL DISTRIBUTION WIDTH 13.6 % (11.5-14.5); WHITE BLOOD COUNT 10.3 10^3/ul (4.5-11.0)
[2017-12-20 09:32] LABS: ALBUMIN 4.4 g/dL (3.0-4.8); CALCIUM 9.5 mg/dL (8.4-10.5)
[2017-12-20 12:12] VITALS: BP 135/81; PULSE 82; RESP 20; TEMP 97.8
--- NOTE | 2017-12-20 13:38 | CP.PCM.DIS ---
<Lavonne Mac - Last Filed: 12/20/17 13:35> Provider - Provider Date of Admission: 12/17/17 17:18 Attending physician: Cecile Rahman MD Primary care physician: Dr. Ortiz Consults: cardiology nephrology neurology Time Spent in preparation of Discharge (in minutes): 45 Diagnosis - Discharge Diagnosis (1) Hypotension Status: Resolved Priority: High (2) Near syncope Status: Resolved Priority: High (3) CHF (congestive heart failure) Status: Chronic Priority: Medium (4) ESRD on dialysis Status: Chronic Priority: Medium Hospital Course - Lab Results Lab Results: Most Recent Lab Values WBC 10.3 10^3/ul (4.5-11.0) D 12/20/17 09:00 RBC 5.27 10^6/uL (3.5-6.1) 12/20/17 09:00 Hgb 15.5 g/dL (14.0-18.0) 12/20/17 09:00 Hct 47.3 % (42.0-52.0) 12/20/17 09:00 MCV 89.8 fl (80.0-105.0) 12/20/17 09:00 MCH 29.4 pg (25.0-35.0) 12/20/17 09:00 MCHC 32.8 g/dl (31.0-37.0) 12/20/17 09:00 RDW 13.6 % (11.5-14.5) 12/20/17 09:00 Plt Count 214 10^3/uL (120.0-450.0) 12/20/17 09:00 MPV 11.2 fl (7.0-11.0) H 12/20/17 09:00 Gran % 56.8 % (50.0-68.0) 12/20/17 09:00 Lymph % (Auto) 17.4 % (22.0-35.0) L 12/20/17 09:00 Citrus % (Auto) 17.6 % (1.0-6.0) H 12/20/17 09:00 Eos % (Auto) 8.0 % (1.5-5.0) H 12/20/17 09:00 Baso % (Auto) 0.2 % (0.0-3.0) 12/20/17 09:00 Gran # 5.84 (1.4-6.5) 12/20/17 09:00 Lymph # (Auto) 1.8 (1.2-3.4) 12/20/17 09:00 Citrus # (Auto) 1.8 (0.1-0.6) H 12/20/17 09:00 Eos # (Auto) 0.8 (0.0-0.7) H 12/20/17 09:00 Baso # (Auto) 0.02 K/mm3 (0.0-2.0) 12/20/17 09:00 Neutrophils % (Manual) 72 % (50.0-70.0) H 12/15/17 08:25 Lymphocytes % (Manual) 8 % (22.0-35.0) L 12/15/17 08:25 Atypical Lymphs % 2 % (0.0-0.0) H 12/15/17 08:25 Monocytes % (Manual) 17 % (1.0-6.0) H 12/15/17 08:25 Eosinophils % (Manual) 1 % (0.0-3.0) 12/15/17 08:25 pO2 34 mm/Hg (30-55) 12/15/17 08:25 VBG pH 7.36 (7.32-7.43) 12/15/17 08:25 VBG pCO2 57.0 (40-60) 12/15/17 08:25 VBG HCO3 32.2 mmol/l (21-28) H 12/15/17 08:25 VBG Total CO2 33.9 mmol.L (22-28) H 12/15/17 08:25 VBG O2 Sat (Calc) 64.8 % (40-65) 12/15/17 08:25 VBG Base Excess 5.1 mmol/L (0.0-2.0) H 12/15/17 08:25 VBG Potassium 4.1 mmol/L (3.6-5.2) 12/15/17 08:25 Sodium 135.0 mmol/L (132-148) 12/15/17 08:25 Chloride 99.0 mmol/L (98-107) 12/15/17 08:25 Glucose 95 mg/dl (75-110) 12/15/17 08:25 Lactate 1.8 mmol/L (0.7-2.1) 12/15/17 08:25 FiO2 21.0 % 12/15/17 08:25 Sodium 142 mmol/L (132-148) 12/20/17 09:00 Potassium 4.2 mmol/L (3.6-5.0) 12/20/17 09:00 Chloride 103 mmol/L (98-107) 12/20/17 09:00 Carbon Dioxide 27 mmol/L (21-33) 12/20/17 09:00 Anion Gap 16 (10-20) 12/20/17 09:00 BUN 32 mg/dL (7-21) H 12/20/17 09:00 Creatinine 3.5 mg/dl (0.8-1.5) H 12/20/17 09:00 Est GFR ( Amer) 22 12/20/17 09:00 Est GFR (Non-Af Amer) 18 12/20/17 09:00 POC Glucose (mg/dL) 232 mg/dL (65-110) H 12/20/17 12:06 Random Glucose 167 mg/dL (70-110) H 12/20/17 09:00 Calcium 9.5 mg/dL (8.4-10.5) 12/20/17 09:00 Phosphorus 2.9 mg/dL (2.5-4.5) 12/20/17 09:00 Magnesium 2.0 mg/dL (1.7-2.2) 12/20/17 09:00 Total Bilirubin 0.8 mg/dL (0.2-1.3) 12/20/17 09:00 AST 30 U/L (17-59) 12/20/17 09:00 ALT 20 U/L (7-56) 12/20/17 09:00 Alkaline Phosphatase 80 U/L (38-126) 12/20/17 09:00 Troponin I 0.06 ng/mL 12/15/17 08:25 NT-Pro-B Natriuret Pep 4150 pg/mL (0-450) H 12/15/17 08:25 Total Protein 8.7 g/dL (5.8-8.3) H 12/20/17 09:00 Albumin 4.4 g/dL (3.0-4.8) 12/20/17 09:00 Globulin 4.3 gm/dL 12/20/17 09:00 Albumin/Globulin Ratio 1.0 (1.1-1.8) L 12/20/17 09:00 Venous Blood Potassium 4.1 mmol/L (3.6-5.2) 12/15/17 08:25 Urine Color Yellow (YELLOW) 12/15/17 17:00 Urine Appearance Sl cloudy (CLEAR) 12/15/17 17:00 Urine pH 7.5 (4.7-8.0) 12/15/17 17:00 Ur Specific [place] 1.010 (1.005-1.035) 12/15/17 17:00 Urine Protein 100 mg/dL (<30 mg/dL) H 12/15/17 17:00 Urine Glucose (UA) Negative mg/dL (NEGATIVE) 12/15/17 17:00 Urine Ketones Negative mg/dL (NEGATIVE) 12/15/17 17:00 Urine Blood Negative (NEGATIVE) 12/15/17 17:00 Urine Nitrate Negative (NEGATIVE) 12/15/17 17:00 Urine Bilirubin Negative (NEGATIVE) 12/15/17 17:00 Urine Urobilinogen 0.2 E.U./dL (<1 E.U./dL) 12/15/17 17:00 Ur Leukocyte Esterase Negative Bishop/uL (NEGATIVE) 12/15/17 17:00 Urine RBC Negative /hpf (0-2) 12/15/17 17:00 Urine WBC Negative /hpf (0-6) 12/15/17 17:00 - Hospital Course Hospital Course: 62 y/o male with past medical history of CHF s/p AICD, CKD (recently started on HD last week), CAD s/p PCI, DM2, HTN, hypothyroidism, BPH and developmental delay who was BIBA from assisted living [facility] after a near-syncopal event on 12/15/17 after using the restroom. Patient denied taking his BP medications. Patient was recently discharged from [facility] 24 hours prior to presentation to the ED where he was started on HD for ESRD. Day before presentation, pt had HD with 800ml of fluid taken off. Upon admission, patient was non-toxic, in no acute distress, alert and oriented x3. There was an HD port on right chest wall without any signs of clinical infection. CT head showed no acute changes. CT cervical spine was negative for fractures. Chest X-ray showed no active disease. Neurology and nephrology were consulted. HD was continued on MWF schedule. Initially, coreg and flomax were held in the setting of hypotension. On 12/16, patient had a single episode of ventricular tachycardia at a rate of 111bpm. Cardiology was consulted who recommended decreasing Coreg and continuing aspirin, Lipitor, plavix, and synthroid. Hypotension was steadily improving since admission. Repeat echo showed severely impaired systolic function with severe global hypokinesis and an ejection fraction of 20%. AICD was interrogated and did not show any events. The settigs on the AICD were also adjusted. On morning of discharge, patient was in no acute distress and was alert and oriented x3. Lightheadedness completely resolved. There have been no falls during hospital stay and patient has been ambulating well. Hypotension has resolved since admission. BP today was 113/76 and has been stable. Patient has HD on MWF and has been tolerating it well. Patient is tolerating PO intake well without nausea, vomiting, diarrhea, or constipation. Discharge Exam - Head Exam Head Exam: ATRAUMATIC, NORMAL INSPECTION - Eye Exam Eye Exam: EOMI, Normal appearance, PERRL - ENT Exam ENT Exam: Mucous Membranes Moist, Normal Exam - Neck Exam Neck exam: Full Rom, Normal Inspection - Respiratory Exam Respiratory Exam: Clear to PA & Lateral, NORMAL BREATHING PATTERN, UNREMARKABLE - Cardiovascular Exam Cardiovascular Exam: REGULAR RHYTHM, +S1, +S2 - GI/Abdominal Exam GI & Abdominal Exam: Normal Bowel Sounds, Soft, Unremarkable - Rectal Exam Rectal Exam: Deferred - Extremities Exam Extremities exam: normal inspection, pedal pulses present - Back Exam Back exam: NORMAL INSPECTION - Neurological Exam Neurological exam: Alert, CN II-XII Intact, Normal Gait, Oriented x3 - Psychiatric Exam Psychiatric exam: Normal Affect, Normal Mood - Skin Skin Exam: Dry, Intact, Normal Color, Warm Discharge Plan - Discharge Medications Prescriptions: Carvedilol [Coreg] 3.125 mg PO BID 30 Days tab Sevelamer [Renagel] 800 mg PO TID 30 Days tab - Follow Up Plan Condition: IMPROVED Disposition: HOME/ ROUTINE Patient education suggested?: Yes Instructions: Dialysis Diet , Preventing Falls in the Older Adult, Hemodialysis (DC), Dialysis and Diet, Syncope (DC) Additional Instructions: You are being discharged from [facility] after being evaluated for an episode of lightheadedness and almost passing out. Your AICD was interrogated and did not find any abnormalities. Please follow-up with your primary care physician, Dr. Ortiz, within 3-5 days of discharge. You primary care provider will continue to manage your diabetes medications if needed. You will be receiving dialysis at [facility] outpatient dialysis unit every Tuesday, Tuesday, and Tuesday under the care of log clerk, Dr. Hinds. Do not take BP meds on dialysis days before going to dialysis unless Dr. Hinds instructs otherwise. Please follow-up with vascular surgeon, Dr. Philippe, within 1 week for AV fistula for dialysis. Your dose of Coreg (carvedilol) has been decreased to 3.125 mg twice daily. Please resume all other home medications. Note that on your previous admission (12/14/17), your home metformin, furosemide (Lasix), Protonix (pantoprazole), calcitriol, and phoslo were discontinued. If symptoms return, please present to the nearest emergency room. Referrals: Luly Ortiz MD [Family Provider] - Henrry Hinds MD [Staff Provider] - Reji Grossman MD [Staff Provider] - <Cecile Rahman - Last Filed: 12/21/17 08:04> Provider - Provider Date of Admission: 12/17/17 17:18 Attending physician: Cecile Rahman MD Hospital Course - Lab Results Lab Results: Most Recent Lab Values WBC 10.3 10^3/ul (4.5-11.0) D 12/20/17 09:00 RBC 5.27 10^6/uL (3.5-6.1) 12/20/17 09:00 Hgb 15.5 g/dL (14.0-18.0) 12/20/17 09:00 Hct 47.3 % (42.0-52.0) 12/20/17 09:00 MCV 89.8 fl (80.0-105.0) 12/20/17 09:00 MCH 29.4 pg (25.0-35.0) 12/20/17 09:00 MCHC 32.8 g/dl (31.0-37.0) 12/20/17 09:00 RDW 13.6 % (11.5-14.5) 12/20/17 09:00 Plt Count 214 10^3/uL (120.0-450.0) 12/20/17 09:00 MPV 11.2 fl (7.0-11.0) H 12/20/17 09:00 Gran % 56.8 % (50.0-68.0) 12/20/17 09:00 Lymph % (Auto) 17.4 % (22.0-35.0) L 12/20/17 09:00 Citrus % (Auto) 17.6 % (1.0-6.0) H 12/20/17 09:00 Eos % (Auto) 8.0 % (1.5-5.0) H 12/20/17 09:00 Baso % (Auto) 0.2 % (0.0-3.0) 12/20/17 09:00 Gran # 5.84 (1.4-6.5) 12/20/17 09:00 Lymph # (Auto) 1.8 (1.2-3.4) 12/20/17 09:00 Citrus # (Auto) 1.8 (0.1-0.6) H 12/20/17 09:00 Eos # (Auto) 0.8 (0.0-0.7) H 12/20/17 09:00 Baso # (Auto) 0.02 K/mm3 (0.0-2.0) 12/20/17 09:00 Neutrophils % (Manual) 72 % (50.0-70.0) H 12/15/17 08:25 Lymphocytes % (Manual) 8 % (22.0-35.0) L 12/15/17 08:25 Atypical Lymphs % 2 % (0.0-0.0) H 12/15/17 08:25 Monocytes % (Manual) 17 % (1.0-6.0) H 12/15/17 08:25 Eosinophils % (Manual) 1 % (0.0-3.0) 12/15/17 08:25 pO2 34 mm/Hg (30-55) 12/15/17 08:25 VBG pH 7.36 (7.32-7.43) 12/15/17 08:25 VBG pCO2 57.0 (40-60) 12/15/17 08:25 VBG HCO3 32.2 mmol/l (21-28) H 12/15/17 08:25 VBG Total CO2 33.9 mmol.L (22-28) H 12/15/17 08:25 VBG O2 Sat (Calc) 64.8 % (40-65) 12/15/17 08:25 VBG Base Excess 5.1 mmol/L (0.0-2.0) H 12/15/17 08:25 VBG Potassium 4.1 mmol/L (3.6-5.2) 12/15/17 08:25 Sodium 135.0 mmol/L (132-148) 12/15/17 08:25 Chloride 99.0 mmol/L (98-107) 12/15/17 08:25 Glucose 95 mg/dl (75-110) 12/15/17 08:25 Lactate 1.8 mmol/L (0.7-2.1) 12/15/17 08:25 FiO2 21.0 % 12/15/17 08:25 Sodium 142 mmol/L (132-148) 12/20/17 09:00 Potassium 4.2 mmol/L (3.6-5.0) 12/20/17 09:00 Chloride 103 mmol/L (98-107) 12/20/17 09:00 Carbon Dioxide 27 mmol/L (21-33) 12/20/17 09:00 Anion Gap 16 (10-20) 12/20/17 09:00 BUN 32 mg/dL (7-21) H 12/20/17 09:00 Creatinine 3.5 mg/dl (0.8-1.5) H 12/20/17 09:00 Est GFR ( Amer) 22 12/20/17 09:00 Est GFR (Non-Af Amer) 18 12/20/17 09:00 POC Glucose (mg/dL) 232 mg/dL (65-110) H 12/20/17 12:06 Random Glucose 167 mg/dL (70-110) H 12/20/17 09:00 Calcium 9.5 mg/dL (8.4-10.5) 12/20/17 09:00 Phosphorus 2.9 mg/dL (2.5-4.5) 12/20/17 09:00 Magnesium 2.0 mg/dL (1.7-2.2) 12/20/17 09:00 Total Bilirubin 0.8 mg/dL (0.2-1.3) 12/20/17 09:00 AST 30 U/L (17-59) 12/20/17 09:00 ALT 20 U/L (7-56) 12/20/17 09:00 Alkaline Phosphatase 80 U/L (38-126) 12/20/17 09:00 Troponin I 0.06 ng/mL 12/15/17 08:25 NT-Pro-B Natriuret Pep 4150 pg/mL (0-450) H 12/15/17 08:25 Total Protein 8.7 g/dL (5.8-8.3) H 12/20/17 09:00 Albumin 4.4 g/dL (3.0-4.8) 12/20/17 09:00 Globulin 4.3 gm/dL 12/20/17 09:00 Albumin/Globulin Ratio 1.0 (1.1-1.8) L 12/20/17 09:00 Venous Blood Potassium 4.1 mmol/L (3.6-5.2) 12/15/17 08:25 Urine Color Yellow (YELLOW) 12/15/17 17:00 Urine Appearance Sl cloudy (CLEAR) 12/15/17 17:00 Urine pH 7.5 (4.7-8.0) 12/15/17 17:00 Ur Specific [place] 1.010 (1.005-1.035) 12/15/17 17:00 Urine Protein 100 mg/dL (<30 mg/dL) H 12/15/17 17:00 Urine Glucose (UA) Negative mg/dL (NEGATIVE) 12/15/17 17:00 Urine Ketones Negative mg/dL (NEGATIVE) 12/15/17 17:00 Urine Blood Negative (NEGATIVE) 12/15/17 17:00 Urine Nitrate Negative (NEGATIVE) 12/15/17 17:00 Urine Bilirubin Negative (NEGATIVE) 12/15/17 17:00 Urine Urobilinogen 0.2 E.U./dL (<1 E.U./dL) 12/15/17 17:00 Ur Leukocyte Esterase Negative Bishop/uL (NEGATIVE) 12/15/17 17:00 Urine RBC Negative /hpf (0-2) 12/15/17 17:00 Urine WBC Negative /hpf (0-6) 12/15/17 17:00 Attending/Attestation - Attestation I have personally seen and examined this patient.: Yes I have fully participated in the care of the patient.: Yes I have reviewed all pertinent clinical information, including history, physical exam and plan: Yes Notes (Text): 12/21/17 08:01 Attending note: Patient seen and examined with resident. Patient is a 62-year-old male with past medical history significant for systolic CHF status post ICD placement, coronary artery disease, type 2 diabetes, developmental delay, hypothyroidism, chronic kidney disease stage IV requiring dialysis, hypertension, and BPH that presented to the emergency room with near syncope. 1. Near syncope. Likely secondary to hypotension. Patient was recently started on dialysis. Currently still getting adjusted with hemodynamic changes associated with volume status during dialysis. Neurology and cardiology evaluation appreciated . AICD interrogation done. Continue aspirin, Plavix, and Lipitor. 2. Hypotension. resolved. PATTY inhibitor on hold . Coreg dosage decreased. May be secondary to volume changes during dialysis after fluid removal . 3. Nonsustained vtach seen on radiation monitor. Patient asymptomatic. 4. Chronic kidney disease now on dialysis. Nephrology evaluation with Dr. Helms appreciated. Continue Renagel. 5. Coronary artery disease. Chronic systolic CHF status post ICD. Continue aspirin, Plavix, and Coreg. Continue Lipitor. Cardiology following, recommendations appreciated. 6. DM type II. Continue insulin sliding scale. Continue to monitor Accu-Cheks. 7. Hypothyroidism. Continue Synthroid. Case discussed with Dr. Lizarraga in detail. Status post AICD and adjustments. Patient is cleared for discharge. Case discussed with log clerk DR. Hinds in detail about medication adjustments. He will follow up patient in outpatient dialysis. Patient's cousin / power of cuff folder jeffery informed about the discharge plan. Patient will follow up with PMD Dr. Ortiz and log clerk Dr. Spear. Case was discussed in detail with the patient and solar field service technician regarding current diagnosis and treatment plan. All questions were answered. 12/21/17 08:03
--- NOTE | 2017-12-20 21:50 | PN ---
DATE: 12/20/2017 SUBJECTIVE: The patient denies any dizziness, chest pain, or palpitation. PHYSICAL EXAMINATION VITAL SIGNS: Blood pressure 135/81, heart rate 82, temperature 97.8, respiration 20. HEENT: Normocephalic. CHEST: Clear. HEART: S1, S2 regular. EXTREMITIES: Improved leg edema. LABORATORY DATA: Today's hemoglobin and hematocrit 15.5 and 47.3. White count and platelet count are within normal limits. Today's SMA-7, sodium 142, potassium 4.2, chloride 103, CO2 of 27, glucose , BUN 32, creatinine 3.5. ASSESSMENT: 1. Cardiomyopathy, status post implantable cardioverter-defibrillator placement. 2. Status post syncopal episode. 3. End-stage renal disease, on hemodialysis. 4. Uncontrolled diabetes mellitus. 5. History of multiple bilateral cerebrovascular accidents. RECOMMENDATION: The patient can be discharged on Coreg 3.125 mg twice a day, aspirin 81 mg once a day, Lipitor 20 mg once a day, Plavix 75 mg once a day, Synthroid 125 mcg once a day. The case was discussed with the patient's livestock caretaker who will take him to his germ drier in [place] as she is aware of his next appointment and she does with him. The livestock caretaker stated that the power of personal injury attorney person only takes care of his financial issues. Hilario Moffett MD
== END 2017-12-20 13:59 | disposition home or self-care (01) | DRG 543 ==
LOC: ED 08:08 → ERH 10:29 → 2RSO 21:54 → OBSVTOIN 12-17 17:18
PROVIDERS: ADMIT Internal Medicine; ATTEND Internal Medicine
PROC: 5A1D70Z Performance of Urinary Filtration, Intermittent, Less than 6 Hours Per Day (ICD-10-PCS; 2017-12-16)
PROC: 4B02XTZ Measurement of Cardiac Defibrillator, External Approach (ICD-10-PCS; principal; 2017-12-19)
PROC: 5A1D70Z Performance of Urinary Filtration, Intermittent, Less than 6 Hours Per Day (ICD-10-PCS; 2017-12-19)
DX: I95.3 Hypotension of hemodialysis (principal); I50.22 Chronic systolic (congestive) heart failure; N18.6 End stage renal disease; I13.2 Hypertensive heart and chronic kidney disease with heart failure and with stage 5 chronic kidney disease, or end stage renal disease; E11.22 Type 2 diabetes mellitus with diabetic chronic kidney disease; E11.65 Type 2 diabetes mellitus with hyperglycemia; E86.0 Dehydration; E87.6 Hypokalemia; I42.9 Cardiomyopathy, unspecified; J44.9 Chronic obstructive pulmonary disease, unspecified; I47.2 Ventricular tachycardia; I25.10 Atherosclerotic heart disease of native coronary artery without angina pectoris; F79 Unspecified intellectual disabilities; E03.9 Hypothyroidism, unspecified; R55 Syncope and collapse; N25.81 Secondary hyperparathyroidism of renal origin; N40.0 Benign prostatic hyperplasia without lower urinary tract symptoms; G93.89 Other specified disorders of brain; M48.02 Spinal stenosis, cervical region; Z99.2 Dependence on renal dialysis; Z79.84 Long term (current) use of oral hypoglycemic drugs; Z79.82 Long term (current) use of aspirin; Z95.5 Presence of coronary angioplasty implant and graft; Z95.810 Presence of automatic (implantable) cardiac defibrillator; Z86.73 Personal history of transient ischemic attack (TIA), and cerebral infarction without residual deficits

== ENCOUNTER 2018-02-25 13:10 | Emergency (ER) | payer MEDICAID ==
[2018-02-25 13:19] VITALS: TEMP 97.9; O2SAT 96; BMI 26.6
[2018-02-25] MEDS ORDERED: Oxycodone/Acetaminophen 5/325 mg Tab PO STA (13:31)
--- NOTE | 2018-02-25 13:59 | ED PDOC ---
Arrival/HPI - General Chief Complaint: Trauma Time Seen by Provider: 02/25/18 13:18 Historian: Patient - History of Present Illness Narrative History of Present Illness (Text): 02/25/18 13:53 62yo morbidly obese male with pmhx of hypertension, Diabetes, ESRD (on dialysis MWF) bib EMS for right hip pain s/p trauma this afternoon. States he fell and landed on his right side while trying to close a van door. Denies hitting his he ad on the ground. he denies focal weakness, nausea, vomiting, dizziness, chest pain, SOB, fecal/urinary incontinence, any other complaint. Past Medical History - Provider Review Nursing Documentation Reviewed: Yes - Past History Past History: No Previous - Infectious Disease Hx of Infectious Diseases: None - Tetanus Immunization Tetanus Immunization: Unknown - Cardiac Hx Cardiac Disorders: Yes (cardiac cath, coronary stent, pacemake w/ internal defibrillator) Hx Congestive Heart Failure: Yes Hx Hypertension: Yes (& hypotension) - Pulmonary Hx Chronic Obstructive Pulmonary Disease (COPD): Yes - Neurological Hx Neurological Disorder: Yes (mental retardation, develommental delay) - HEENT Hx HEENT Disorder: No - Renal Date of Last Dialysis Treatment: 12/13/17 - Endocrine/Metabolic Hx Diabetes Mellitus Type 2: Yes Hx Hypothyroidism: Yes - Hematological/Oncological Hx Blood Disorders: Yes (hyperkalemia) - Integumentary Hx Dermatological Disorder: Yes Other/Comment: chronic venous stasis b/l shins, ble skin discolorations and scarring, dry thick toenails both feet, discolored dry brown red skin ble and feet,multiple moles to back, questionable old patterson to ankles, pt unsure, 3 round red areas of skin to right knee, bruising to rac and lac - Musculoskeletal/Rheumatological Hx Falls: Yes (fell today) - Gastrointestinal Hx Gastrointestinal Disorders: Yes (protruding umbilical hernia) - Genitourinary/Gynecological Hx Genitourinary Disorders: Yes Hx Prostate Problems: Yes (bph) - Psychiatric Hx Psychophysiologic Disorder: Yes Hx Substance Use: No Other/Comment: Developmental delay. - Surgical History Hx Cardiac Catheterization: Yes Hx Coronary Stent: Yes Other/Comment: cardiac cath, pacemaker with internal defribilator, rcw hd cath - Anesthesia Hx Anesthesia: Yes Hx Anesthesia Reactions: No Hx Malignant Hyperthermia: No - Suicidal Assessment Feels Threatened In Home Enviroment: No Family/Social History - Physician Review Nursing Documentation Reviewed: Yes Family/Social History: Unknown Family HX Smoking Status: Never Smoked Hx Alcohol Use: No Hx Substance Use: No Hx Substance Use Treatment: No Allergies/Home Meds Allergies/Adverse Reactions: Allergies No Known Allergies Allergy (Verified 12/15/17 08:18) Home Medications: Home Meds Medication Instructions Recorded Confirmed RX: Aspirin [Ecotrin] 81 mg PO DAILY 12/15/17 12/20/17 RX: Atorvastatin [Lipitor] 20 mg PO DAILY 12/15/17 12/20/17 RX: Clopidogrel [Plavix] 75 mg PO DAILY 12/15/17 12/20/17 RX: Febuxostat [Uloric] 40 mg PO DAILY 12/15/17 12/15/17 RX: Levothyroxine [Synthroid] 100 mcg PO DAILY 12/15/17 12/20/17 RX: Tamsulosin [Flomax] 0.4 mg PO DAILY 12/15/17 12/15/17 Review of Systems - Physician Review All systems were reviewed & negative as marked: Yes - Review of Systems Constitutional: Normal Eyes: Normal ENT: Normal Respiratory: Normal Cardiovascular: Normal Gastrointestinal: Normal Genitourinary Male: Normal Musculoskeletal: Arthralgias (Right hip pain) Skin: Normal Neurological: Normal Endocrine: Normal Hemo/Lymphatic: Normal Psychiatric: Normal Physical Exam Vital Signs Reviewed: Yes Vital Signs Temp Pulse Resp BP Pulse Ox 02/25/18 13:18 97.9 F 89 19 100/43 L 96 Temperature: Afebrile Blood Pressure: Normal Pulse: Regular Respiratory Rate: Normal Appearance: Positive for: Well-Appearing, Non-Toxic, Comfortable Pain Distress: None Mental Status: Positive for: Alert and Oriented X 3 - Systems Exam Head: Present: Atraumatic, Normocephalic Pupils: Present: PERRL Extroacular Muscles: Present: EOMI Conjunctiva: Present: Normal Mouth: Present: Moist Mucous Membranes Neck: Present: Normal Range of Motion Respiratory/Chest: Present: Clear to Auscultation, Good Air Exchange. No: Respiratory Distress, Accessory Muscle Use Cardiovascular: Present: Regular Rate and Rhythm, Normal S1, S2. No: Murmurs Abdomen: No: Tenderness, Distention, Peritoneal Signs Back: Present: Normal Inspection Upper Extremity: Present: Normal Inspection. No: Cyanosis, Edema Lower Extremity: Present: NORMAL PULSES, Tenderness (Over the right hip lateal trochanter). No: Edema, Normal ROM (Limited on all planes secondary to pain), Swelling, Deformity Neurological: Present: GCS=15, CN II-XII Intact, Speech Normal Skin: Present: Warm, Dry, Normal Color. No: Rashes Psychiatric: Present: Alert, Oriented x 3, Normal Insight, Normal Concentration Medical Decision Making ED Course and Treatment: 02/25/18 19:18 PT in ED for stated history. He appeared in mild pain distress on arrival. His pain was controlled in ED with medication. he was neurologically intact. B/L hip xray - No acute fracture/dislocation noted Result was DW the pt and he was referred to his PMD. Tramadol given for pain medication. - RAD Interpretation Radiology Orders: 02/25/18 13:31 Hip Bilateral [HIP MIN 3V W/ PELVIS AZNE] [RAD] Stat - Medication Orders Current Medication Orders: Discontinued Medications Oxycodone/Acetaminophen (Percocet 5/325 Mg Tab) 1 tab PO STAT STA Stop: 02/25/18 13:32 Last Admin: 02/25/18 13:35 Dose: 1 tab MAR Pain Assessment Document 02/25/18 13:35 RC (Rec: 02/25/18 13:37 RC [facility] [id number]) Pain Reassessment Is this a pain reassessment? Yes Sleep Is patient sleeping during reassessment? No Presence of Pain Presence of Pain Yes Pain Scale Used Protocol: PSCALES Pain Scale Used Numeric Location Left, Right or Bilateral Right Pain Location Body Site Hip Description Intensity of Pain at present 7 Acceptable Level of Pain 3 Disposition/Present on Arrival - Present on Arrival Any Indicators Present on Arrival: No History of DVT/PE: No History of Uncontrolled Diabetes: No Urinary Catheter: No History of Decub. Ulcer: No History Surgical Site Infection Following: None - Disposition Have Diagnosis and Disposition been Completed?: Yes Diagnosis: Hip pain Disposition: HOME/ ROUTINE Disposition Time: 14:35 Patient Plan: Discharge Condition: STABLE Discharge Instructions (ExitCare): Hip Pain Additional Instructions: Follow up with your Doctor/orthopedist Return to ED for any new or worsening symptoms Prescriptions: RX: traMADol [Ultram] 50 mg PO TID #8 tab Referrals: Edy Sierra III, MD [Medical Doctor] - Follow up with primary Forms: [employer] ([place]i)
--- NOTE | 2018-02-25 14:29 | CT ---
Date of service: 02/25/2018 PROCEDURE: CT HEAD WITHOUT CONTRAST. HISTORY: s/p trauma COMPARISON: CT 12/15/2017 TECHNIQUE: Axial computed tomography images were obtained through the head/brain without intravenous contrast. Radiation dose: Total exam DLP = 1707.53 mGy-cm. This CT exam was performed using one or more of the following dose reduction techniques: Automated exposure control, adjustment of the mA and/or kV according to patient size, and/or use of iterative reconstruction technique. FINDINGS: HEMORRHAGE: No intracranial hemorrhage. BRAIN: No mass effect or edema. Chronic microvascular changes are seen in the periventricular white matter basal ganglia and thalami. There is focal atrophy in the right temporal lobe.. Encephalomalacia is seen in the left parietal lobe. VENTRICLES: Unremarkable. No hydrocephalus. CALVARIUM: Unremarkable. PARANASAL SINUSES: Unremarkable as visualized. No significant inflammatory changes. MASTOID AIR CELLS: Unremarkable as visualized. No inflammatory changes. OTHER FINDINGS: None. IMPRESSION: Chronic microvascular changes are seen in the periventricular white matter basal ganglia and thalami. There is focal atrophy in the right temporal lobe.. Encephalomalacia is seen in the left parietal lobe.
--- NOTE | 2018-02-25 14:30 | RAD ---
PROCEDURE: Radiographs of the pelvis and bilateral hips HISTORY: right hip pain s/p trauma COMPARISON: None. FINDINGS: BONES: Pelvis: Unremarkable. Right hip:Unremarkable. Left hip:Unremarkable. JOINTS: Right hip: Unremarkable. Left hip: Unremarkable. Sacroiliac Joints: Unremarkable. Pubic symphysis: Unremarkable. SOFT TISSUES: Normal. OTHER FINDINGS: None. IMPRESSION: Unremarkable radiographs of the hips and pelvis.
[2018-02-25 15:01] VITALS: BP 101/62; PULSE 79; RESP 16
== END 2018-02-25 15:04 | disposition home or self-care (01) ==
LOC: ED 13:10
DX: M25.551 Pain in right hip (principal); I13.2 Hypertensive heart and chronic kidney disease with heart failure and with stage 5 chronic kidney disease, or end stage renal disease; I50.9 Heart failure, unspecified; E11.22 Type 2 diabetes mellitus with diabetic chronic kidney disease; N18.6 End stage renal disease; Z99.2 Dependence on renal dialysis; Z95.0 Presence of cardiac pacemaker

== ENCOUNTER 2018-02-27 09:06 | Inpatient (IN) | payer MEDICAID ==
[2018-02-27 09:12] VITALS: BMI 25.8
--- NOTE | 2018-02-27 09:55 | ED PDOC ---
Arrival/HPI - General Chief Complaint: Hip Pain Historian: Patient - History of Present Illness Narrative History of Present Illness (Text): 02/27/18 09:51 62yo male with pmhx of CHF, ESRD who was bib EMS for complaint of right hip pain. Patient was seen here on Tuesday for same pain s/p trauma and was discharged home with Tramadol after a negative plain film. He states he took his pain medication yesterday, but not today. Describes pain with ambulation. Denies any new trauma, focal weakness, back pain, saddle anesthesia, urinary/fecal incontinence, any other complaint. Past Medical History - Provider Review Nursing Documentation Reviewed: Yes - Past History Past History: No Previous - Infectious Disease Hx of Infectious Diseases: None - Tetanus Immunization Tetanus Immunization: Unknown - Cardiac Hx Cardiac Disorders: Yes (cardiac cath, coronary stent, pacemake w/ internal defibrillator) Hx Congestive Heart Failure: Yes Hx Hypertension: Yes (& hypotension) - Pulmonary Hx Chronic Obstructive Pulmonary Disease (COPD): Yes - Neurological Hx Neurological Disorder: Yes (mental retardation, develommental delay) - HEENT Hx HEENT Disorder: No - Renal Date of Last Dialysis Treatment: 12/13/17 - Endocrine/Metabolic Hx Diabetes Mellitus Type 2: Yes Hx Hypothyroidism: Yes - Hematological/Oncological Hx Blood Disorders: Yes (hyperkalemia) - Integumentary Hx Dermatological Disorder: Yes Other/Comment: chronic venous stasis b/l shins, ble skin discolorations and scarring, dry thick toenails both feet, discolored dry brown red skin ble and feet,multiple moles to back, questionable old patterson to ankles, pt unsure, 3 round red areas of skin to right knee, bruising to rac and lac - Musculoskeletal/Rheumatological Hx Falls: Yes (fell today) - Gastrointestinal Hx Gastrointestinal Disorders: Yes (protruding umbilical hernia) - Genitourinary/Gynecological Hx Genitourinary Disorders: Yes Hx Prostate Problems: Yes (bph) - Psychiatric Hx Psychophysiologic Disorder: Yes Hx Substance Use: No Other/Comment: Developmental delay. - Surgical History Hx Cardiac Catheterization: Yes Hx Coronary Stent: Yes Other/Comment: cardiac cath, pacemaker with internal defribilator, rcw hd cath - Anesthesia Hx Anesthesia: Yes Hx Anesthesia Reactions: No Hx Malignant Hyperthermia: No - Suicidal Assessment Feels Threatened In Home Enviroment: No Family/Social History - Physician Review Nursing Documentation Reviewed: Yes Family/Social History: Unknown Family HX Smoking Status: Never Smoked Hx Alcohol Use: No Hx Substance Use: No Hx Substance Use Treatment: No Allergies/Home Meds Allergies/Adverse Reactions: Allergies No Known Allergies Allergy (Verified 02/27/18 18:07) Home Medications: Home Meds Medication Instructions Recorded Confirmed RX: Aspirin [Ecotrin] 81 mg PO DAILY 12/15/17 02/27/18 RX: Atorvastatin [Lipitor] 20 mg PO DAILY 12/15/17 02/27/18 RX: Clopidogrel [Plavix] 75 mg PO DAILY 12/15/17 02/27/18 RX: Febuxostat [Uloric] 40 mg PO DAILY 12/15/17 02/27/18 RX: Levothyroxine [Synthroid] 100 mcg PO DAILY 12/15/17 02/27/18 RX: Tamsulosin [Flomax] 0.4 mg PO DAILY 12/15/17 02/27/18 Review of Systems - Physician Review All systems were reviewed & negative as marked: Yes - Review of Systems Constitutional: Normal Eyes: Normal ENT: Normal Respiratory: Normal Cardiovascular: Normal Gastrointestinal: Normal Genitourinary Male: Normal Musculoskeletal: Arthralgias (Right hip pain) Skin: Normal Neurological: Normal Endocrine: Normal Hemo/Lymphatic: Normal Psychiatric: Normal Physical Exam Vital Signs Reviewed: Yes Vital Signs Temp Pulse Resp BP Pulse Ox 02/27/18 09:19 97.4 F L 90 18 117/65 94 L Temperature: Afebrile Blood Pressure: Normal Pulse: Regular Respiratory Rate: Normal Appearance: Positive for: Well-Appearing, Non-Toxic, Comfortable Pain Distress: None Mental Status: Positive for: Alert and Oriented X 3 - Systems Exam Head: Present: Atraumatic, Normocephalic Pupils: Present: PERRL Extroacular Muscles: Present: EOMI Conjunctiva: Present: Normal Mouth: Present: Moist Mucous Membranes Neck: Present: Normal Range of Motion Respiratory/Chest: Present: Clear to Auscultation, Good Air Exchange. No: Respiratory Distress, Accessory Muscle Use Cardiovascular: Present: Regular Rate and Rhythm, Normal S1, S2. No: Murmurs Abdomen: No: Tenderness, Distention, Peritoneal Signs Back: Present: Normal Inspection Upper Extremity: Present: Normal Inspection. No: Cyanosis, Edema Lower Extremity: Present: NORMAL PULSES, Tenderness (Right lateral hip), Neurovascularly Intact. No: Edema, Normal ROM (Limited secondary to pain), Swelling, Deformity Neurological: Present: GCS=15, CN II-XII Intact, Speech Normal Skin: Present: Warm, Dry, Normal Color. No: Rashes Psychiatric: Present: Alert, Oriented x 3, Normal Insight, Normal Concentration Medical Decision Making ED Course and Treatment: 02/27/18 19:12 PT presented to ED for stated history. He was not in any acute distress. He was seen in ED on Tuesday for same complaint. Hip CT was ordered Right hip CT IMPRESSION: Acute mildly impacted right subcapital femoral neck fracture. Labs was reviewed and leukocytosis was noted. Source of luekocytosis is not known at this time. He was hemodynamically stable and has no focal complaint. Blood culture ordered and pending Pt admitted secondary to the CT finding Case was WATSON Rahman and pt was admitted Case was also WATSON Marquis who requested another hip xray and admission of pt. Chest xray IMPRESSION: No active disease. No significant interval change compared to the prior examination(s). EKG Nonspecific intraventricular block @ 89bpm N-STEMI - RAD Interpretation Radiology Orders: 02/27/18 09:20 HIP WITHOUT CONTRAST RIGHT [CT] Stat - Medication Orders Current Medication Orders: Discontinued Medications Tramadol HCl (Ultram) 50 mg PO STAT STA Stop: 02/27/18 09:22 Last Admin: 02/27/18 09:43 Dose: 50 mg JOSE L Pain Assessment Document 02/27/18 09:43 LA (Rec: 02/27/18 09:43 LA [id number]) Pain Reassessment Is this a pain reassessment? No Sleep Is patient sleeping during reassessment? No Presence of Pain Presence of Pain Yes Pain Scale Used Protocol: PSCALES Pain Scale Used Numeric Location Left, Right or Bilateral Right Pain Location Body Site Hip Description Description Intermittent Intensity of Pain at present 7 Disposition/Present on Arrival - Present on Arrival Any Indicators Present on Arrival: No History of DVT/PE: No History of Uncontrolled Diabetes: No Urinary Catheter: No History of Decub. Ulcer: No History Surgical Site Infection Following: None - Disposition Have Diagnosis and Disposition been Completed?: Yes Diagnosis: Leukocytosis, Hip fracture Disposition: HOSPITALIZED Disposition Time: 16:40 Patient Plan: Admission Patient Problems: Current Active Problems Problem Status Onset Hip fracture Acute Leukocytosis Acute Condition: FAIR
[2018-02-27 12:12] LABS: BASO # 0.06 K/mm3 (0.0-2.0); BASO % 0.5 % (0.0-3.0); EOS # 0.8 (0.0-0.7); EOS % 6.3 % (1.5-5.0); GRAN # 9.88 (1.4-6.5); GRAN % 75.4 % (50.0-68.0); HEMOGLOBIN 12.7 g/dL (14.0-18.0); LYMPH # 1.4 (1.2-3.4); LYMPH % 10.6 % (22.0-35.0); MEAN CELL VOLUME 93.1 fl (80.0-105.0); MEAN CORPUSCULAR HEMOGLOBIN 31.1 pg (25.0-35.0); MEAN CORPUSCULAR HGB CONC 33.4 g/dl (31.0-37.0); MEAN PLATELET VOLUME 10.9 fl (7.0-11.0); MONO # 0.9 (0.1-0.6); MONO % 7.2 % (1.0-6.0); RBC 4.08 10^6/uL (3.5-6.1); RED CELL DISTRIBUTION WIDTH 13.9 % (11.5-14.5); WHITE BLOOD COUNT 13.1 10^3/uL (4.5-11.0)
[2018-02-27 12:21] LABS: ALBUMIN 4.2 g/dL (3.0-4.8); CALCIUM 9.6 mg/dL (8.4-10.5)
--- NOTE | 2018-02-27 16:30 | CT ---
Date of service: 02/27/2018 PROCEDURE: CT of the right hip without contrast HISTORY: right hip pain s/p trauma COMPARISON: No prior similar study available for comparison. TECHNIQUE: Axial and reformatted coronal and sagittal CT images of the right hip were obtained without contrast administration. FINDINGS: There is a acute mildly impacted nondisplaced fracture at the proximal right femoral neck suggestive of subcapital fracture. There is no evidence of dislocation in the right hip joint. There is a small right hip joint effusion noted. IMPRESSION: Acute mildly impacted right subcapital femoral neck fracture.
--- NOTE | 2018-02-27 17:11 | RAD ---
Date of service: 02/27/2018 HISTORY: admission COMPARISON: 12/15/2017 FINDINGS: LUNGS: No active pulmonary disease. PLEURA: No significant pleural effusion identified, no pneumothorax apparent. CARDIOVASCULAR: No atherosclerotic calcification present Cardiomegaly. No evidence of acute, significant cardiovascular disease. Position/ configuration of pacemaker Satisfactory. Venous access catheter in stable, satisfactory position. OSSEOUS STRUCTURES: No significant abnormalities. VISUALIZED UPPER ABDOMEN: Normal. OTHER FINDINGS: None. IMPRESSION: No active disease. No significant interval change compared to the prior examination(s).
--- NOTE | 2018-02-27 18:08 | CP.PCM.HP ---
<Lisa Lowery - Last Filed: 02/27/18 18:13> History of Present Illness - History of Present Illness History of Present Illness: PGY1 Medicine History and Physical Exam Note for Dr. Rahman Mr. Reece is a [id number]-male with a past medical history significant for CHF s/p AICD with EF 34%, CKD (recently started on HD MWF; Dr. Helms Flour Blender), CAD s/p PCI, IDDM, HTN, hypothyroidism, BPH and developmental delay who was brought from assisted living alf after falling while attempting to close a vehicle's door 2 days ago. Please note, Patient is A&Ox4. Patient states he lost his balance, and fell forward/onto his right side, hitting his right hip on the ground first. Patient denies hitting his head. Of note, Patient was seen in the ED on 02/25 (the day of the fall) however pathology of the hip was negative according to x-ray, and Patient was discharged back to alf. Today, Patient continued to complain of pain and difficulty walking, which prompted him to return to the ED. Patient denies chest pain, shortness of breath, fevers, chills, headaches, changes in his vision, LOC, neck stiffness/pain, palpitations, abdominal pain, nausea, vomiting and/or diarrhea, numbness/tingling/weakness of his upper and/or lower extremities. PMH: CHF s/p AICD with EF 34%, CKD (recently started on HD), CAD s/p PCI, DM2, HTN, hypothyroidism, BPH and developmental delay PSH: HD Port, AICD, PCI Family Hx: Denies Social Hx Denies any tobacco, alcohol or illicit drug use; Lives in assisted living alf with home health aide Allergies: NKDA Home Medications: ASA, Plavix, Coreg, Lipitor, Pepcid, Insulin PMD: Dr. Ortiz Flour Blender: Dr. Helms Present on Admission - Present on Admission Any Indicators Present on Admission: No History of DVT/PE: No History of Uncontrolled Diabetes: No Urinary Catheter: No Decubitus Ulcer Present: No History Surgical Site Infection Following: None Review of Systems - Review of Systems All systems: reviewed and no additional remarkable complaints except Review of Systems: ROS negative other than mentioned in the HPI Past Patient History - Infectious Disease Hx of Infectious Diseases: None - Tetanus Immunizations Tetanus Immunization: Unknown - Past Medical History & Family History Past Medical History?: Yes - Past Social History Smoking Status: Never Smoked - CARDIAC Hx Cardiac Disorders: Yes (cardiac cath, coronary stent, pacemake w/ internal defibrillator) Hx Congestive Heart Failure: Yes Hx Hypertension: Yes (& hypotension) - PULMONARY Hx Chronic Obstructive Pulmonary Disease (COPD): Yes - NEUROLOGICAL Hx Neurological Disorder: Yes (mental retardation, develommental delay) - HEENT Hx HEENT Problems: No - RENAL Date of Last Dialysis Treatment: 12/13/17 - ENDOCRINE/METABOLIC Hx Diabetes Mellitus Type 2: Yes Hx Hypothyroidism: Yes - HEMATOLOGICAL/ONCOLOGICAL Hx Blood Disorders: Yes (hyperkalemia) - INTEGUMENTARY Hx Dermatological Problems: Yes Other/Comment: chronic venous stasis b/l shins, ble skin discolorations and scarring, dry thick toenails both feet, discolored dry brown red skin ble and feet,multiple moles to back, questionable old patterson to ankles, pt unsure, 3 roun d red areas of skin to right knee, bruising to rac and lac - MUSCULOSKELETAL/RHEUMATOLOGICAL Hx Falls: Yes (fell today) - GASTROINTESTINAL Hx Gastrointestinal Disorders: Yes (protruding umbilical hernia) - GENITOURINARY/GYNECOLOGICAL Hx Genitourinary Disorders: Yes Hx Prostate Problems: Yes (bph) - PSYCHIATRIC Hx Psychophysiologic Disorder: Yes Hx Substance Use: No Other/Comment: Developmental delay. - SURGICAL HISTORY Hx Cardiac Catheterization: Yes Hx Coronary Stent: Yes Other/Comment: cardiac cath, pacemaker with internal defribilator, rcw hd cath - ANESTHESIA Hx Anesthesia: Yes Hx Anesthesia Reactions: No Hx Malignant Hyperthermia: No Meds Home Medications: Home Medication List Medication Instructions Recorded Confirmed Type Aspirin [Ecotrin] 81 mg PO DAILY tabec 03/02/18 Rx Vitamin B Complex/Vit C/Folic 1 tab PO 0800 tab 03/02/18 Rx [Nephro-Mali] traMADol [Ultram] 50 mg PO Q6 PRN tab 03/02/18 Rx Allergies/Adverse Reactions: Allergies Allergy/AdvReac Type Severity Reaction Status Date / Time No Known Allergies Allergy Verified 02/27/18 18:07 Physical Exam - Constitutional Appears: Non-toxic, No Acute Distress - Head Exam Head Exam: ATRAUMATIC, NORMAL INSPECTION, NORMOCEPHALIC - Eye Exam Eye Exam: EOMI, Normal appearance, PERRL Pupil Exam: NORMAL ACCOMODATION - ENT Exam ENT Exam: Mucous Membranes Moist, Normal Exam - Neck Exam Neck exam: Positive for: Full Rom, Normal Inspection. Negative for: Lymphadenopathy, Tenderness - Respiratory Exam Respiratory Exam: Clear to Auscultation Bilateral, NORMAL BREATHING PATTERN. absent: Accessory Muscle Use, Chest Wall Tenderness, Decreased Breath Sounds, Prolonged Expiratory Phase, Rales, Rhonchi, Wheezes, Respiratory Distress, Stridor - Cardiovascular Exam Cardiovascular Exam: REGULAR RHYTHM, +S1, +S2. absent: Gallop, Irregular Rhythm, +S4 - GI/Abdominal Exam GI & Abdominal Exam: Hernia (periumbilical hernia, reducible, nontender to palpation ), Normal Bowel Sounds, Soft. absent: Distended, Firm, Rebound, Rigid, Tenderness - Extremities Exam Extremities exam: Negative for: joint swelling, tenderness, pedal pulses present (No pedal pulses appreciated with doppler and/or with palpation ) Additional comments: left foot cold to touch - Back Exam Back exam: FULL ROM, NORMAL INSPECTION. absent: CVA tenderness (L), CVA tenderness (R), muscle spasm - Neurological Exam Neurological exam: Alert, CN II-XII Intact, Oriented x3, Reflexes Normal - Psychiatric Exam Psychiatric exam: Flat Affect, Normal Affect, Normal Mood - Skin Skin Exam: Dry, Normal Color Results - Vital Signs Recent Vital Signs: Last Vital Signs Temp 97.6 F 02/27/18 15:53 Pulse 84 02/27/18 15:53 Resp 18 02/27/18 15:53 BP 115/63 02/27/18 15:53 Pulse Ox 98 02/27/18 15:53 - Labs Result Diagrams: 02/27/18 12:00 02/27/18 12:00 Labs: Laboratory Results - last 24 hr 02/27/18 02/27/18 12:00 12:00 WBC 13.1 H RBC 4.08 Hgb 12.7 L D Hct 38.0 L MCV 93.1 D MCH 31.1 MCHC 33.4 RDW 13.9 Plt Count 274 MPV 10.9 Gran % 75.4 H Lymph % (Auto) 10.6 L [place] % (Auto) 7.2 H Eos % (Auto) 6.3 H Baso % (Auto) 0.5 Gran # 9.88 H Lymph # (Auto) 1.4 [place] # (Auto) 0.9 H Eos # (Auto) 0.8 H Baso # (Auto) 0.06 Sodium 140 Potassium 4.3 Chloride 98 Carbon Dioxide 29 Anion Gap 18 BUN 56 H Creatinine 6.1 H Est GFR ( Amer) 11 Est GFR (Non-Af Amer) 9 Random Glucose 141 H Calcium 9.6 Total Bilirubin 1.3 AST 22 ALT 18 Alkaline Phosphatase 80 Total Protein 8.2 Albumin 4.2 Globulin 4.1 Albumin/Globulin Ratio 1.0 L Assessment & Plan - Assessment and Plan (Free Text) Assessment: Mr. Reece is a [id number]-male with a past medical history significant for CHF s/p AICD with EF 34%, CKD (recently started on HD MWF; Dr. Helms Flour Blender), CAD s/p PCI, IDDM, HTN, hypothyroidism, BPH and developmental delay who was brou ght from assisted living alf after falling while attempting to close a vehicle's door 2 days ago. Patient admitted for further Orthopedic evaluation S/P Mechanical Fall - CT R Hip 02/27: Status post trauma: acute mildly impacted right subcapital femoral neck fracture with small joint effusion. No dislocation. (Please see full report for details) - Reactive leukocytosis - Tramadol 50mg PO Stat - Tramadol 50mg PO Q12 - Orthopedic Surgery consulted; Dr. Sierra; Recommendations appreciated Leukocytosis - WBC=13.1 - Likely reactive - Procal pending - F/U Blood Cx - Monitor CBC Pulseless Left Lower Extremity - Pedal pulses not appreciated on doppler / not palpable - Foot cold to touch compared to right foot - F/U Arterial duplex (bilateral) History of CKD; on Dialysis MWF - Flour Blender consulted; Dr. Helms: recommendations appreciated - BUN/Cr =56/6.1 - F/U Urinalysis - Monitor CMP, Mg, Phos in Am History of CAD s/p PCI - Cardiology consulted; - EKG obtained - Continue home med: Lipitor - No acute issues - Monitor History of Insulin Dependent DMT2 - ISS - Hypoglycemic protocol - Accu checks ACHS - Monitor History of Hypertension - Continue home med: Coreg - No acute issues - Monitor vitals History of Hyperthyroidism - Synthroid 100mcg PO daily - No acute issues Patient seen and case discussed with Dr. Josiah Lowery PGY1 <Cecile Rahman - Last Filed: 03/02/18 16:39> Results - Vital Signs Recent Vital Signs: Last Vital Signs Temp 97.3 F L 03/02/18 16:16 Pulse 93 H 03/02/18 16:16 Resp 20 03/02/18 16:16 BP 97/71 L 03/02/18 16:16 Pulse Ox 94 L 03/02/18 16:16 - Labs Result Diagrams: 03/02/18 07:25 03/02/18 07:25 Labs: Laboratory Results - last 24 hr 03/01/18 03/02/18 03/02/18 15:10 07:25 07:25 WBC 11.9 H RBC 4.23 Hgb 13.1 L Hct 39.2 L MCV 92.7 MCH 31.0 MCHC 33.4 RDW 13.8 Plt Count 273 MPV 10.7 Gran % 75.1 H Lymph % (Auto) 11.9 L [place] % (Auto) 9.1 H Eos % (Auto) 3.5 Baso % (Auto) 0.4 Gran # 8.94 H Lymph # (Auto) 1.4 [place] # (Auto) 1.1 H Eos # (Auto) 0.4 Baso # (Auto) 0.05 Sodium 138 Potassium 4.1 Chloride 98 Carbon Dioxide 26 Anion Gap 18 BUN 37 H Creatinine 5.0 H Est GFR ( Amer) 14 Est GFR (Non-Af Amer) 12 Random Glucose 140 H Calcium 9.1 Total Bilirubin 1.3 AST 23 ALT 18 Alkaline Phosphatase 86 Total Protein 8.5 H Albumin 4.1 Globulin 4.4 Albumin/Globulin Ratio 0.9 L Blood Type A POSITIVE Antibody Screen Negative BBK History Checked Patient has bt Attending/Attestation - Attestation I have personally seen and examined this patient.: Yes I have fully participated in the care of the patient.: Yes I have reviewed all pertinent clinical information: Yes Notes (Text): 03/02/18 16:30 attending note; Patient seen and examined with resident in ER. Patient is alert and awake. Denies any chest pain, shortness of breath. Complaining of right hip pain. Not in any acute distress. Patient is a [id number]-male with a past medical history significant for CHF s/p AICD , recent RIDGE stent placement, end-stage renal disease on dialysis, IDDM, HTN, hypothyroidism, BPH and developmental delay who was brought from assisted living alf after falling while attempting to close a vehicle's door 2 days ago. found to have right acute mildly impacted subcapital femoral neck fracture. Case discussed with orthopedics in detail. x-ray of the hip ordered. History of coronary artery disease and stent placement; we will hold Plavix. Cardiology evaluation requested. End-stage renal disease on dialysis; patient completed dialysis today. electrolytes normal. Case discussed with power of civil litigation attorney Melissa in detail. Will follow up with orthopedics closely.
--- NOTE | 2018-02-27 18:52 | CARD ---
APPROVED REPORT Date of service: 02/27/2018 EKG Measurement Heart [id number] <Conclusion> Atrial sensed ventricular paced rhythm with premature ventricular complexes Abnormal ECG
[2018-02-27 19:48] LABS: INR 1.08; PARTIAL THROMBOPLASTIN TIME 29.3 Seconds (25.1-36.5); PROTHROMBIN TIME 12.3 SECONDS (9.4-12.5)
[2018-02-27] MEDS ORDERED: Pneumococcal 23-Valent Vaccine IM ONE (20:15)
[2018-02-27] MEDS ORDERED: Influenza Vaccine 60 mcg/0.5 mL SYR (4YR UP) IM ONE (20:15)
--- NOTE | 2018-02-28 07:37 | CP.PCM.CON ---
History of Present Illness - History of Present Illness History of Present Illness: Orthopedic consultation Dr. Sierra 62M complains of right hip/groin pain after fall 3 days agos. He was seen in ED and xrays were read as negative, but when he had continued pain he came back to the hospital and was found to have hip fracture. He was able to walk but was having a lot of pain. Denies any other pain other than in his hip/groin. Denies CP/SOB/dizzinessn/v/numbness/tingling. Patient states he has patterson on BLE from 8 years ago. PMH: CHF, CAD s/p stent x 3, AICD, most recent EF noted to be approx 15% per cousin, ESRD on HD on plavix, patient says "i take all my medication" but does not specifically note last plavix taken Xochilt Wright MD [facility] [phone] Hidalgo [phone] vascular DR Flores EP battery change 06/08/2017 stress test 01/05/2018 cardiac cath 01/23/2018 3rd drug alluding stent near LAD d/w Melissa cousin at length at patient's request, knows patient's history, will consent for procedure Review of Systems - Review of Systems All systems: reviewed and no additional remarkable complaints except - Musculoskeletal Musculoskeletal: As Per HPI Past Patient History - Infectious Disease Hx of Infectious Diseases: None - Tetanus Immunizations Tetanus Immunization: Unknown - Past Medical History & Family History Past Medical History?: Yes - Past Social History Smoking Status: Never Smoked - CARDIAC Hx Cardiac Disorders: Yes (cardiac cath, coronary stent, pacemake w/ internal defibrillator) Hx Congestive Heart Failure: Yes Hx Hypertension: Yes (& hypotension) - PULMONARY Hx Respiratory Disorders: Yes Hx Chronic Obstructive Pulmonary Disease (COPD): Yes - NEUROLOGICAL Hx Neurological Disorder: Yes (mental retardation, develommental delay) - HEENT Hx HEENT Problems: No - RENAL Hx Chronic Kidney Disease: Yes Hx Dialysis: Yes ([facility] MWF just started had 4 tx's) Date of Last Dialysis Treatment: 12/13/17 Hx Renal Failure: Yes - ENDOCRINE/METABOLIC Hx Endocrine Disorders: Yes Hx Diabetes Mellitus Type 2: Yes Hx Hypothyroidism: Yes - HEMATOLOGICAL/ONCOLOGICAL Hx Blood Disorders: Yes (hyperkalemia) - INTEGUMENTARY Hx Dermatological Problems: Yes Other/Comment: chronic venous stasis b/l shins, ble skin discolorations and scarring, dry thick toenails both feet, discolored dry brown red skin ble and feet,multiple moles to back, questionable old patterson to ankles, pt unsure, 3 round red areas of skin to right knee, bruising to rac and lac - MUSCULOSKELETAL/RHEUMATOLOGICAL Hx Musculoskeletal Disorders: Yes Hx Falls: Yes (fell today 02-25-18) - GASTROINTESTINAL Hx Gastrointestinal Disorders: Yes (protruding umbilical hernia) - GENITOURINARY/GYNECOLOGICAL Hx Genitourinary Disorders: Yes Hx Prostate Problems: Yes (bph) - PSYCHIATRIC Hx Psychophysiologic Disorder: Yes Hx Substance Use: No Other/Comment: Developmental delay. - SURGICAL HISTORY Hx Surgeries: Yes Hx Cardiac Catheterization: Yes Hx Coronary Stent: Yes Other/Comment: cardiac cath, pacemaker with internal defribilator, rcw hd cath - ANESTHESIA Hx Anesthesia: Yes Hx Anesthesia Reactions: No Hx Malignant Hyperthermia: No Meds Allergies/Adverse Reactions: Allergies Allergy/AdvReac Type Severity Reaction Status Date / Time No Known Allergies Allergy Verified 02/27/18 18:07 - Medications Medications: Current Medications Atorvastatin Calcium (Lipitor) 20 mg PO DAILY [facility] Carvedilol (Coreg) 3.125 mg PO BID [facility] Last Admin: 02/27/18 18:16 Dose: 3.125 mg Levothyroxine Sodium (Synthroid) 100 mcg PO DAILY [facility] Febuxostat [Uloric] (40 Mg (Home Med)) 40 mg PO DAILY [facility] Sevelamer HCl (Renagel) 800 mg PO TID [facility] Tamsulosin HCl (Flomax) 0.4 mg PO DAILY [facility] Tramadol HCl (Ultram) 50 mg PO Q12 [facility] Last Admin: 02/27/18 21:10 Dose: Not Given Physical Exam - Constitutional Appears: Well, No Acute Distress (Sitting of EOB eating lunch) - Head Exam Head Exam: ATRAUMATIC - Neck Exam Neck exam: Positive for: Full Rom, Normal Inspection - Respiratory Exam Respiratory Exam: NORMAL BREATHING PATTERN - Cardiovascular Exam Additional comments: +DP/PT pulses - Extremities Exam Additional comments: calves soft NT neg homans sitting with hip/knee flexed to 90 without pain complains of R groin pain with hip ROM - Expanded Lower Extremities Exam Right Knee exam: full ROM, normal inspection (nontender, sensation intact BLE) Ankle exam: FULL ROM, NORMAL INSPECTION - Neurological Exam Neurological exam: Alert, Oriented x3 - Psychiatric Exam Psychiatric exam: Normal Affect, Normal Mood - Skin Skin Exam: Dry, Intact, Warm Additional comments: burn scars to B lower legs and feet, no open wounds, dry Results - Vital Signs Recent Vital Signs: Last Vital Signs Temp 97.2 F L 02/27/18 22:00 Pulse 89 02/27/18 22:00 Resp 20 02/27/18 22:00 BP 96/65 L 02/27/18 22:00 Pulse Ox 100 02/27/18 22:00 - Labs Result Diagrams: 02/28/18 07:30 02/28/18 07:30 Labs: Laboratory Results - last 24 hr 02/27/18 02/27/18 02/27/18 12:00 12:00 18:43 WBC 13.1 H RBC 4.08 Hgb 12.7 L D Hct 38.0 L MCV 93.1 D MCH 31.1 MCHC 33.4 RDW 13.9 Plt Count 274 MPV 10.9 Gran % 75.4 H Lymph % (Auto) 10.6 L [place] % (Auto) 7.2 H Eos % (Auto) 6.3 H Baso % (Auto) 0.5 Gran # 9.88 H Lymph # (Auto) 1.4 [place] # (Auto) 0.9 H Eos # (Auto) 0.8 H Baso # (Auto) 0.06 PT 12.3 INR 1.08 APTT 29.3 Sodium 140 Potassium 4.3 Chloride 98 Carbon Dioxide 29 Anion Gap 18 BUN 56 H Creatinine 6.1 H Est GFR ( Amer) 11 Est GFR (Non-Af Amer) 9 Random Glucose 141 H Calcium 9.6 Total Bilirubin 1.3 AST 22 ALT 18 Alkaline Phosphatase 80 Total Protein 8.2 Albumin 4.2 Globulin 4.1 Albumin/Globulin Ratio 1.0 L Assessment & Plan (1) Closed subcapital fracture of right femur Assessment and Plan: Dr. Sierra to review CT to confirm if patient is candidate for hip pinning awaiting cardiology consultation/stratification patient on plavix at home plan for OR possibly per Dr. Sierra if indicated surgery is pinning, as much smaller incision and expected blood loss VTE proph will follow up d/w cousin at length d/w Dr. Sierra, agrees with above Status: Acute
[2018-02-28 07:57] LABS: BASO # 0.06 K/mm3 (0.0-2.0); BASO % 0.5 % (0.0-3.0); EOS # 0.9 (0.0-0.7); EOS % 7.5 % (1.5-5.0); GRAN # 8.83 (1.4-6.5); HEMOGLOBIN 12.6 g/dL (14.0-18.0); LYMPH # 0.8 (1.2-3.4); MEAN CELL VOLUME 93.2 fl (80.0-105.0); MEAN CORPUSCULAR HEMOGLOBIN 30.4 pg (25.0-35.0); MEAN CORPUSCULAR HGB CONC 32.6 g/dl (31.0-37.0); MONO # 1.2 (0.1-0.6); RBC 4.14 10^6/uL (3.5-6.1); RED CELL DISTRIBUTION WIDTH 13.8 % (11.5-14.5); WHITE BLOOD COUNT 11.8 10^3/uL (4.5-11.0)
[2018-02-28 08:09] LABS: CALCIUM 9.1 mg/dL (8.4-10.5)
[2018-02-28] MEDS: Levothyroxine 100 MCG TAB PO SCH (09:25)
--- NOTE | 2018-02-28 10:43 | RAD ---
Date of service: 02/27/2018 PROCEDURE: Pelvis and bilateral hips HISTORY: Right hip Pain. No history of recent/ related trauma provided COMPARISON: February 27, 2018. CT pelvis/right lower extremity: Impacted subcapital fracture right femur TECHNIQUE: Standard protocol for this study/examination. FINDINGS: Confirmation of subcapital fracture right femur in neutral IMPRESSION: Impacted comminuted fracture proximal right femur better visualized on recent CT scan.
--- NOTE | 2018-02-28 12:46 | CP.PCM.CON ---
History of Present Illness - History of Present Illness History of Present Illness: Nephrology Consultation Note: Assessment: Stable Fall, Rt hip fracture Diabetic chronic Kidney Disease (E11.22) Hypertensive Chronic Kidney Disease (I12.0) End stage renal disease (N18.6) dependence on hemodialysis (Z99.2) (MWF) via PC Anemia (D64.9), Hyperphosphatemia (E83.39), Secondary Hyperparathyroidism (E21.1), HTN (I12.0) CAD s/p stent , sCHF s/p AICD Plan: No acute need for dialysis today. Will plan for dialysis tomorrow. Continue with Nephrovite 1 tab/day. PRBC as needed for anemia. not on KRYSTAL with dialysis as last Hb 12.6 Continue with phos binders, last phos level 5.3 BP control with meds as ordered. Patient not on RAAS allyn as BP low Glycemic control, Dialysis consistent diet Further work up/management as per primary team Dose meds/antibiotics (if needed) for ESRD status. Avoid fleets enema/magnesium based laxatives. orthopedic following Thanks for allowing me to participate in care of your patient. Will follow patient with you. Please call if any Qs Dr Jassi Espitia Office: [phone] Chief Complaint;fall HPI: Pt is a 62 M with hx of ESRD on hemodialysis (MWF) via [facility] @ [place] [facility] , last dialysis yesterday, chronic anemia, hyperphosphatemia, seco ndary hyperparathyroidism, Diabetes Mellitus, hypertension CAD s/p stent , sCHF s/p AICD presented with complaints of fall and Rt hip fracture. Renal consult requested for ESRD management. besides Rt hip pain, pt feels in usual health he [facility] ROS: Cardiovascular: No chest pain. Pulmonary: No shortness of breath Gastrointestinal: denies abdominal pain No nausea. No vomiting. Genitourinary: No pain while urinating. Denies blood in urine. All other negative except as mentioned in HPI Physical Examination: General Appearance: Comfortable, in no acute respiratory distress, co-operative . Vitals reviewed and noted as below Head; Atraumatic, normocephalic ENT: no ulcers no thrush. Tongue is midline. Oropharynx: no rash or ulcers. EYES: Pupils are equal, round and reactive to light accommodation. Eye muscles and extraocular movement intact. Sclera is anicteric. Neck; supple no lymphadenopathy, no thyromegaly or bruit Lungs: Normal respiratory rate/effort. Breath sounds bilateral equal and clear Heart: Normal rate. s1s2 normal. No rub or gallop. Extremities: no edema. No varicose veins Neurological: Patient is alert, awake and oriented to person, place and time. No focal deficit. Strength bilateral appropriate and equal Skin: Warm and dry. Normal turgor. No rash. Palpitation: Normal elasticity for age Abdomen: Abdomen is soft. Bowel sounds +. There is no abdominal tenderness, no guarding/rigidity or organomegaly Psych: limited insight and normal affect/mood MSK: no joint tenderness or swelling. Digits and nails normal, no deformity : kidney or bladder not palpable Access: PC Labs/imaging reviewed. Past medical history, past surgical history, family history, social history, allergy reviewed and noted as below Family Hx: no hx of CKD. Non contributory Past Patient History - Infectious Disease Hx of Infectious Diseases: None - Tetanus Immunizations Tetanus Immunization: Unknown - Past Medical History & Family History Past Medical History?: Yes - Past Social History Smoking Status: Never Smoked - CARDIAC Hx Cardiac Disorders: Yes (cardiac cath, coronary stent, pacemake w/ internal defibrillator) Hx Congestive Heart Failure: Yes Hx Hypertension: Yes (& hypotension) - PULMONARY Hx Respiratory Disorders: Yes Hx Chronic Obstructive Pulmonary Disease (COPD): Yes - NEUROLOGICAL Hx Neurological Disorder: Yes (mental retardation, develommental delay) - HEENT Hx HEENT Problems: No - RENAL Hx Chronic Kidney Disease: Yes Hx Dialysis: Yes ([facility] [place] just started had 4 tx's) Date of Last Dialysis Treatment: 12/13/17 Hx Renal Failure: Yes - ENDOCRINE/METABOLIC Hx Endocrine Disorders: Yes Hx Diabetes Mellitus Type 2: Yes Hx Hypothyroidism: Yes - HEMATOLOGICAL/ONCOLOGICAL Hx Blood Disorders: Yes (hyperkalemia) - INTEGUMENTARY Hx Dermatological Problems: Yes Other/Comment: chronic venous stasis b/l shins, ble skin discolorations and scarring, dry thick toenails both feet, discolored dry brown red skin ble and feet,multiple moles to back, questionable old patterson to ankles, pt unsure, 3 round red areas of skin to right knee, bruising to rac and lac - MUSCULOSKELETAL/RHEUMATOLOGICAL Hx Musculoskeletal Disorders: Yes Hx Falls: Yes (fell today 02-25-18) - GASTROINTESTINAL Hx Gastrointestinal Disorders: Yes (protruding umbilical hernia) - GENITOURINARY/GYNECOLOGICAL Hx Genitourinary Disorders: Yes Hx Prostate Problems: Yes (bph) - PSYCHIATRIC Hx Psychophysiologic Disorder: Yes Hx Substance Use: No Other/Comment: Developmental delay. - SURGICAL HISTORY Hx Surgeries: Yes Hx Cardiac Catheterization: Yes Hx Coronary Stent: Yes Other/Comment: cardiac cath, pacemaker with internal defribilator, rcw hd cath - ANESTHESIA Hx Anesthesia: Yes Hx Anesthesia Reactions: No Hx Malignant Hyperthermia: No Meds Allergies/Adverse Reactions: Allergies Allergy/AdvReac Type Severity Reaction Status Date / Time No Known Allergies Allergy Verified 02/27/18 18:07 - Medications Medications: Current Medications Atorvastatin Calcium (Lipitor) 20 mg PO DAILY [facility] Last Admin: 02/28/18 09:19 Dose: 20 mg Carvedilol (Coreg) 3.125 mg PO BID [facility] Last Admin: 02/28/18 09:17 Dose: 3.125 mg Famotidine (Pepcid) 40 mg PO [facility] Levothyroxine Sodium (Synthroid) 100 mcg PO DAILY [facility] Last Admin: 02/28/18 09:25 Dose: 100 mcg Febuxostat [Uloric] (40 Mg (Home Med)) 40 mg PO DAILY [facility] Sevelamer HCl (Renagel) 800 mg PO TID [facility] Last Admin: 02/28/18 09:16 Dose: 800 mg Tamsulosin HCl (Flomax) 0.4 mg PO DAILY [facility] Last Admin: 02/28/18 09:16 Dose: 0.4 mg Tramadol HCl (Ultram) 50 mg PO Q6 PRN PRN Reason: Pain, severe (8-10) Vitamin B Complex/Vit C/Folic Acid (Nephro-Mali) 1 tab PO 0800 [facility] Results - Vital Signs Recent Vital Signs: Last Vital Signs Temp 97.8 F 02/28/18 06:00 Pulse 97 H 02/28/18 09:17 Resp 20 02/28/18 06:00 BP 108/65 02/28/18 09:17 Pulse Ox 100 02/28/18 06:00 - Labs Result Diagrams: 02/28/18 07:30 02/28/18 07:30 Labs: Laboratory Results - last 24 hr 02/27/18 02/27/18 02/27/18 12:00 12:00 18:43 WBC 13.1 H RBC 4.08 Hgb 12.7 L D Hct 38.0 L MCV 93.1 D MCH 31.1 MCHC 33.4 RDW 13.9 Plt Count 274 MPV 10.9 Gran % 75.4 H Lymph % (Auto) 10.6 L [place] % (Auto) 7.2 H Eos % (Auto) 6.3 H Baso % (Auto) 0.5 Gran # 9.88 H Lymph # (Auto) 1.4 [place] # (Auto) 0.9 H Eos # (Auto) 0.8 H Baso # (Auto) 0.06 PT 12.3 INR 1.08 APTT 29.3 Sodium 140 Potassium 4.3 Chloride 98 Carbon Dioxide 29 Anion Gap 18 BUN 56 H Creatinine 6.1 H Est GFR ( Amer) 11 Est GFR (Non-Af Amer) 9 Random Glucose 141 H Calcium 9.6 Phosphorus Magnesium Total Bilirubin 1.3 AST 22 ALT 18 Alkaline Phosphatase 80 Total Protein 8.2 Albumin 4.2 Globulin 4.1 Albumin/Globulin Ratio 1.0 L 02/28/18 02/28/18 07:30 07:30 WBC 11.8 H RBC 4.14 Hgb 12.6 L Hct 38.6 L MCV 93.2 MCH 30.4 MCHC 32.6 RDW 13.8 Plt Count 259 MPV 11.0 Gran % 75.0 H Lymph % (Auto) 7.0 L [place] % (Auto) 10.0 H Eos % (Auto) 7.5 H Baso % (Auto) 0.5 Gran # 8.83 H Lymph # (Auto) 0.8 L [place] # (Auto) 1.2 H Eos # (Auto) 0.9 H Baso # (Auto) 0.06 PT INR APTT Sodium 137 Potassium 4.4 Chloride 97 L Carbon Dioxide 30 Anion Gap 15 BUN 32 H Creatinine 4.4 H Est GFR ( Amer) 17 Est GFR (Non-Af Amer) 14 Random Glucose 114 H Calcium 9.1 Phosphorus 5.3 H Magnesium 2.0 Total Bilirubin 1.9 H AST 21 ALT 18 Alkaline Phosphatase 81 Total Protein 8.0 Albumin 4.0 Globulin 4.0 Albumin/Globulin Ratio 1.0 L
--- NOTE | 2018-02-28 12:56 | CP.PCM.PN ---
<Lisa Lowery - Last Filed: 02/28/18 14:48> Subjective - Date & Time of Evaluation Date of Evaluation: 02/28/18 Time of Evaluation: 12:56 - Subjective Subjective: PGY1 Medicine Progress Note for Dr. Rahman Patient was seen at bedside this morning. No acute events overnight. Patient without complaints. Patient admits to achy pain localized to right hip, but otherwise denies chest pain, shortness of breath, palpitations, lower extremity pain, numbness and/or tingling, dizziness, headache, nausea, vomiting and/or fever. Objective - Vital Signs/Intake and Output Vital Signs (last 24 hours): Temp Pulse Resp BP Pulse Ox 97.8 F 97 H 20 108/65 100 02/28/18 06:00 02/28/18 09:17 02/28/18 06:00 02/28/18 09:17 02/28/18 06:00 - Medications Medications: Current Medications Aspirin (Ecotrin) 81 mg PO DAILY [facility] Atorvastatin Calcium (Lipitor) 20 mg PO DAILY [facility] Last Admin: 02/28/18 09:19 Dose: 20 mg Carvedilol (Coreg) 3.125 mg PO BID [facility] Last Admin: 02/28/18 09:17 Dose: 3.125 mg Famotidine (Pepcid) 40 mg PO HS [facility] Levothyroxine Sodium (Synthroid) 100 mcg PO DAILY [facility] Last Admin: 02/28/18 09:25 Dose: 100 mcg Febuxostat [Uloric] (40 Mg (Home Med)) 40 mg PO DAILY [facility] Sevelamer HCl (Renagel) 800 mg PO TID [facility] Last Admin: 02/28/18 09:16 Dose: 800 mg Tamsulosin HCl (Flomax) 0.4 mg PO DAILY [facility] Last Admin: 02/28/18 09:16 Dose: 0.4 mg Tramadol HCl (Ultram) 50 mg PO Q6 PRN PRN Reason: Pain, severe (8-10) Vitamin B Complex/Vit C/Folic Acid (Nephro-Mali) 1 tab PO 0800 [facility] - Labs Labs: 02/28/18 07:30 02/28/18 07:30 PT 12.3 SECONDS (9.4-12.5) 02/27/18 18:43 INR 1.08 02/27/18 18:43 APTT 29.3 Seconds (25.1-36.5) 02/27/18 18:43 - Additional Findings Additional findings: - Constitutional Appears: Non-toxic, No Acute Distress - Head Exam Head Exam: ATRAUMATIC, NORMAL INSPECTION, NORMOCEPHALIC - Eye Exam Eye Exam: EOMI, Normal appearance, PERRL Pupil Exam: NORMAL ACCOMODATION - ENT Exam ENT Exam: Mucous Membranes Moist, Normal Exam - Neck Exam Neck exam: Positive for: Full Rom, Normal Inspection. Negative for: Lymphadenopathy, Tenderness - Respiratory Exam Respiratory Exam: Clear to Auscultation Bilateral, NORMAL BREATHING PATTERN. absent: Accessory Muscle Use, Chest Wall Tenderness, Decreased Breath Sounds, Prolonged Expiratory Phase, Rales, Rhonchi, Wheezes, Respiratory Distress, Stridor - Cardiovascular Exam Cardiovascular Exam: REGULAR RHYTHM, +S1, +S2. absent: Gallop, Irregular Rhythm, +S4 - GI/Abdominal Exam GI & Abdominal Exam: Hernia (periumbilical hernia, reducible, nontender to palpation ), Normal Bowel Sounds, Soft. absent: Distended, Firm, Rebound, Rigid, Tenderness - Extremities Exam Extremities exam: Negative for: joint swelling, tenderness, pedal pulses present (No pedal pulses appreciated with doppler and/or with palpation ) Additional comments: left foot cold to touch - Back Exam Back exam: FULL ROM, NORMAL INSPECTION. absent: CVA tenderness (L), CVA tenderness (R), muscle spasm - Neurological Exam Neurological exam: Alert, CN II-XII Intact, Oriented x3, Reflexes Normal - Psychiatric Exam Psychiatric exam: Flat Affect, Normal Affect, Normal Mood - Skin Skin Exam: Dry, Normal Color Assessment and Plan - Assessment and Plan (Free Text) Assessment: Mr. Reece is a [id number]-male with a past medical history significant for CHF s/p AICD with EF 34%, CKD (recently started on HD MWF; Dr. Helms [facility]), CAD s/p PCI, IDDM, HTN, hypothyroidism, BPH and developmental delay who [facility] falling while attempting to close a vehicle's door 2 days ago. Patient admitted for further Orthopedic evaluation. S/P Mechanical Fall - CT R Hip 02/27: Status post trauma: acute mildly impacted right subcapital femoral neck fracture with small joint effusion. No dislocation. (Please see full report for details) - Reactive leukocytosis - Tramadol 50mg PO Stat - Tramadol 50mg PO Q12 - Orthopedic Surgery consulted; Dr. Sierra - Recommends awaiting Cardiology recommendation - Recommends internal pinning planned for pending Cardiology recommendation - Cardiology (Dr. Lopez) consulted; recommendations appreciated Leukocytosis; improving - WBC=11.8 - Likely reactive - Procal pending - F/U Blood Cx - Monitor CBC Pulseless Left Lower Extremity; chronic - Pedal pulses not appreciated on doppler / not palpable - Foot cold to touch compared to right foot - F/U Arterial duplex (bilateral) History of CKD; on Dialysis MWF - [facility] consulted; Dr. Helms: recommendations appreciated - Patient still receiving dialysis while hospitalized (dialysis was yesterday and plan for tomorrow) - BUN/Cr =56/6.1 - F/U Urinalysis - Monitor CMP, Mg, Phos in Am History of CAD s/p PCI - Cardiology consulted; - EKG obtained - Continue home med: Lipitor - No acute issues - Monitor History of Insulin Dependent DMT2 - ISS - Hypoglycemic protocol - Accu checks ACHS - Monitor History of Hypertension - Continue home med: Coreg - No acute issues - Monitor vitals History of Hyperthyroidism - Synthroid 100mcg PO daily - No acute issues Patient seen and case discussed with Dr. Josiah Lowery PGY1 <Cecile Rahman - Last Filed: 03/02/18 16:47> Objective - Vital Signs/Intake and Output Vital Signs (last 24 hours): Temp Pulse Resp BP Pulse Ox 97.3 F L 93 H 20 97/71 L 94 L 03/02/18 16:16 03/02/18 16:16 03/02/18 16:16 03/02/18 16:16 03/02/18 16:16 Intake and Output: 03/02/18 03/02/18 06:59 18:59 Intake Total 540 Output Total 700 Balance -160 - Medications Medications: Current Medications Albumin Human (Albumin Human 25% (12.5 Gm/50 Ml)) 25 gm IV MWF PRN PRN Reason: Other Aspirin (Ecotrin) 81 mg PO DAILY [facility] Last Admin: 03/02/18 10:52 Dose: 81 mg Atorvastatin Calcium (Lipitor) 20 mg PO DAILY [facility] Last Admin: 03/02/18 10:49 Dose: 20 mg Carvedilol (Coreg) 3.125 mg PO BID [facility] Last Admin: 03/02/18 10:49 Dose: 3.125 mg Famotidine (Pepcid) 20 mg PO HS [facility] Last Admin: 03/01/18 21:43 Dose: 20 mg Levothyroxine Sodium (Synthroid) 100 mcg PO DAILY [facility] Last Admin: 03/02/18 10:49 Dose: 100 mcg Febuxostat [Uloric] (40 Mg (Home Med)) 40 mg PO DAILY [facility] Last Admin: 03/02/18 10:52 Dose: Not Given Sevelamer HCl (Renagel) 800 mg PO TID [facility] Last Admin: 03/02/18 13:10 Dose: Not Given Tamsulosin HCl (Flomax) 0.4 mg PO DAILY [facility] Last Admin: 03/02/18 10:48 Dose: 0.4 mg Tramadol HCl (Ultram) 50 mg PO Q6 PRN PRN Reason: Pain, severe (8-10) Last Admin: 03/02/18 13:30 Dose: 50 mg Vitamin B Complex/Vit C/Folic Acid (Nephro-Mali) 1 tab PO 0800 [facility] Last Admin: 03/02/18 08:45 Dose: 1 tab - Labs Labs: 03/02/18 07:25 03/02/18 07:25 PT 12.3 SECONDS (9.4-12.5) 02/27/18 18:43 INR 1.08 02/27/18 18:43 APTT 29.3 Seconds (25.1-36.5) 02/27/18 18:43 Attending/Attestation - Attestation I have personally seen and examined this patient.: Yes I have fully participated in the care of the patient.: Yes I have reviewed all pertinent clinical information, including history, physical exam and plan: Yes Notes (Text): 03/02/18 16:39 attending note; Patient seen and examined with resident. Patient is alert and awake. denies any fevers, chills. Denies any nausea, vomiting. Denies any chest pain, shortness of breath. Complaining of right hip pain. Not in any acute distress. Patient is a [id number]-male with a past medical history significant for CHF s/p AICD , recent RIDGE stent placement, end-stage renal disease on dialysis, IDDM, HTN, hypothyroidism, BPH and developmental delay who was [facility] after falling while attempting to close a vehicle's door 2 days ago. Right femoral neck fracture. Case discussed with orthopedics in detail. History of coronary artery disease and stent placement; we will hold Plavix. continue aspirin. Cardiology evaluation appreciated. Patient is high risk for orthopedic procedure. possible orthopedic procedure on . End-stage renal disease on dialysis; continue hemodialysis Tuesday and Tuesday. Nephrology evaluation appreciated. Case discussed with power of sand siftercourtney Torres in detail. Will follow up with orthopedics closely. upon discharge the patient will follow-up with PMD . Patient needs close follow-up with cardiology at [facility]. 03/02/18 16:46
--- NOTE | 2018-02-28 16:23 | CON ---
DATE: 02/28/2018 CARDIOLOGY CONSULTATION HISTORY OF PRESENT ILLNESS: The patient is a 62-year-old male, who presented after finding difficulty in walking. He was found to have a hip fracture in the right lower extremity. PAST MEDICAL HISTORY: The patient's past medical history includes a history of PTCA and stent as well as a pacemaker, which was placed somewhere in [place]. The history is difficult given the patient's mental disability. He does have a pacemaker in place and has been on aspirin and Plavix. In addition, his latest workup here at [place] revealed an ejection fraction of 20% on echocardiogram, and it was confirmed that the patient has an ICD placed. He also suffers from hyperlipidemia. SOCIAL HISTORY: The patient denies smoking. REVIEW OF SYSTEMS: Fourteen-point review of systems is reviewed in detail. No angina. No shortness of breath. No edema in the lower extremities noted. PHYSICAL EXAMINATION: VITAL SIGNS: On physical exam, blood pressure is 108/65, heart rate is in the 90s. NECK: Negative JVD. LUNGS: Without rales. HEART: Reveal S1, S2. EXTREMITIES: Without edema. LABORATORY DATA: Laboratories revealed a hemoglobin of 12.6. Chemistries: BUN and creatinine are 32 and 4.4. EKG shows a paced rhythm. IMPRESSION: 1. Right hip fracture. 2. End-stage dilated cardiomyopathy. 3. History of coronary artery disease. 4. Stable angina. 5. End-stage renal disease. 6. History of mental disability. 7. Hypercholesterolemia. PLAN: Given these findings, the patient's cardiac status puts him at high risk for any surgery and anesthesia. However, the patient currently is at his optimum cardiac status at this time. We will stop his Plavix in preparation for his potential surgery on . Merlin Lopez MD
[2018-02-28] MEDS: Febuxostat [Uloric] 40 MG (HOME MED) PO SCH (16:44)
[2018-03-01 01:45] LABS: PH,URINE 7.5 (4.7-8.0); URINE BILIRUBIN NEGATIVE (NEGATIVE); URINE BLOOD NEGATIVE (NEGATIVE); URINE GLUCOSE (UA) 100 mg/dL (NEGATIVE); URINE LEUKOCYTE ESTERASE NEGATIVE Leu/uL (NEGATIVE); URINE PROTEIN 100 mg/dL (<30 mg/dL); URINE UROBILINOGEN 0.2 E.U./dL (<1 E.U./dL)
[2018-03-01 01:54] LABS: URINE APPEARANCE CLEAR (CLEAR); URINE COLOR YELLOW (YELLOW)
[2018-03-01 02:06] LABS: URINE EPITHELIAL CELLS 0 - 2 /hpf (0-5); URINE RBC 0 - 2 /hpf (0-2); URINE WBC 0 - 2 /hpf (0-6)
--- NOTE | 2018-03-01 07:23 | CP.PCM.PN ---
<Lisa Lowery - Last Filed: 03/01/18 10:35> Subjective - Date & Time of Evaluation Date of Evaluation: 03/01/18 Time of Evaluation: 07:21 - Subjective Subjective: PGY1 Medicine Progress Note for Dr. Rahman Patient was seen at bedside this morning. No acute events overnight. Patient without complaints. Patient admits to achy pain localized to right hip, but otherwise denies chest pain, shortness of breath, palpitations, lower extremity pain, numbness and/or tingling, dizziness, headache, nausea, vomiting and/or fever. Of note, I contacted Xochilt Wright MD [facility] cardiology at [phone] this morning. Patient's recent cath report is being faxed for our records. Objective - Vital Signs/Intake and Output Vital Signs (last 24 hours): Temp Pulse Resp BP Pulse Ox 97 F L 98 H 20 102/75 92 L 02/28/18 22:14 02/28/18 22:14 02/28/18 22:14 02/28/18 22:14 02/28/18 22:14 - Medications Medications: Current Medications Aspirin (Ecotrin) 81 mg PO DAILY [facility] Last Admin: 02/28/18 12:15 Dose: 81 mg Atorvastatin Calcium (Lipitor) 20 mg PO DAILY [facility] Last Admin: 02/28/18 09:19 Dose: 20 mg Carvedilol (Coreg) 3.125 mg PO BID [facility] Last Admin: 02/28/18 17:56 Dose: 3.125 mg Famotidine (Pepcid) 20 mg PO HS [facility] Last Admin: 02/28/18 21:11 Dose: 20 mg Levothyroxine Sodium (Synthroid) 100 mcg PO DAILY [facility] Last Admin: 02/28/18 09:25 Dose: 100 mcg Febuxostat [Uloric] (40 Mg (Home Med)) 40 mg PO DAILY [facility] Last Admin: 02/28/18 16:44 Dose: Not Given Sevelamer HCl (Renagel) 800 mg PO TID [facility] Last Admin: 02/28/18 17:48 Dose: 800 mg Tamsulosin HCl (Flomax) 0.4 mg PO DAILY [facility] Last Admin: 02/28/18 09:16 Dose: 0.4 mg Tramadol HCl (Ultram) 50 mg PO Q6 PRN PRN Reason: Pain, severe (8-10) Vitamin B Complex/Vit C/Folic Acid (Nephro-Mali) 1 tab PO 0800 [facility] - Labs Labs: 02/28/18 07:30 02/28/18 07:30 PT 12.3 SECONDS (9.4-12.5) 02/27/18 18:43 INR 1.08 02/27/18 18:43 APTT 29.3 Seconds (25.1-36.5) 02/27/18 18:43 - Additional Findings Additional findings: - Constitutional Appears: Non-toxic, No Acute Distress - Head Exam Head Exam: ATRAUMATIC, NORMAL INSPECTION, NORMOCEPHALIC - Eye Exam Eye Exam: EOMI, Normal appearance, PERRL Pupil Exam: NORMAL ACCOMODATION - ENT Exam ENT Exam: Mucous Membranes Moist, Normal Exam - Neck Exam Neck exam: Positive for: Full Rom, Normal Inspection. Negative for: Lymphadenopathy, Tenderness - Respiratory Exam Respiratory Exam: Clear to Auscultation Bilateral, NORMAL BREATHING PATTERN. absent: Accessory Muscle Use, Chest Wall Tenderness, Decreased Breath Sounds, Prolonged Expiratory Phase, Rales, Rhonchi, Wheezes, Respiratory Distress, Stridor - Cardiovascular Exam Cardiovascular Exam: REGULAR RHYTHM, +S1, +S2. absent: Gallop, Irregular Rhy thm, +S4 - GI/Abdominal Exam GI & Abdominal Exam: Hernia (periumbilical hernia, reducible, nontender to palpation ), Normal Bowel Sounds, Soft. absent: Distended, Firm, Rebound, Rigid, Tenderness - Extremities Exam Extremities exam: Negative for: joint swelling, tenderness, pedal pulses present (No pedal pulses appreciated with doppler and/or with palpation) - Back Exam Back exam: FULL ROM, NORMAL INSPECTION. absent: CVA tenderness (L), CVA tenderness (R), muscle spasm - Neurological Exam Neurological exam: Alert, CN II-XII Intact, Oriented x3, Reflexes Normal - Psychiatric Exam Psychiatric exam: Flat Affect, Normal Affect, Normal Mood - Skin Skin Exam: Dry, Normal Color Assessment and Plan - Assessment and Plan (Free Text) Assessment: Mr. Reece is a [id number]-male with a past medical history significant for CHF s/p AICD with EF 34%, CKD (recently started on HD MWF; Dr. Helms [facility]), CAD s/p PCI, IDDM, HTN, hypothyroidism, BPH and developmental delay who was [facility] from assisted living [facility] after falling while attempting to close a vehicle's door 2 days ago. Patient admitted for further Orthopedic evaluation. Patient is scheduled for surgery tomorrow. S/P Mechanical Fall - CT R Hip 02/27: Status post trauma: acute mildly impacted right subcapital femoral neck fracture with small joint effusion. No dislocation. (Please see full report for details) - Reactive leukocytosis - Tramadol 50mg PO Stat - Tramadol 50mg PO Q12 - Orthopedic Surgery consulted; Dr. Sierra - Recommends awaiting Cardiology recommendation - Recommends internal pinning planned for pending Cardiology recommendation - Patient's records from most recent cath obtained - Cardiology (Dr. Lopez) consulted; recommendations appreciated Leukocytosis; improving - WBC=11.6 - Likely reactive - Procal low =0.4 - Blood Cx: no growth x24hrs - Monitor CBC Pulseless Left Lower Extremity; chronic - Pedal pulses not appreciated on doppler / not palpable - Foot cold to touch compared to right foot - Arterial duplex (bilateral) ordered History of CKD; on Dialysis MWF - [facility] consulted; Dr. Helms: recommendations appreciated - Patient still receiving dialysis while hospitalized (dialysis was yesterday and plan for tomorrow) - BUN/Cr = 44/5.5 - Urinalysis: +protein, + glucose - Monitor CMP, Mg, Phos in Am History of CAD s/p PCI - Cardiology consulted; - EKG obtained - Continue home med: Lipitor - No acute issues - Monitor History of Insulin Dependent DMT2 - ISS - Hypoglycemic protocol - Accu checks ACHS - Monitor History of Hypertension - Continue home med: Coreg - No acute issues - Monitor vitals History of Hyperthyroidism - Synthroid 100mcg PO daily - No acute issues Patient seen and case discussed with Dr. Josiah Lowery PGY1 <Cecile Rahman - Last Filed: 03/05/18 13:04> Objective - Vital Signs/Intake and Output Vital Signs (last 24 hours): Temp Pulse Resp BP Pulse Ox 97.6 F 98 H 18 90/65 L 96 03/03/18 14:00 03/03/18 14:00 03/03/18 14:00 03/03/18 14:00 03/03/18 14:00 - Labs Labs: 03/03/18 07:00 12/14/18 07:00 PT 12.3 SECONDS (9.4-12.5) 02/27/18 18:43 INR 1.08 02/27/18 18:43 APTT 29.3 Seconds (25.1-36.5) 02/27/18 18:43 Attending/Attestation - Attestation I have personally seen and examined this patient.: Yes I have fully participated in the care of the patient.: Yes I have reviewed all pertinent clinical information, including history, physical exam and plan: Yes Notes (Text): 03/05/18 13:03 attending note; Patient seen and examined with resident. Patient is alert and awake. denies any fevers, chills. Denies any nausea, vomiting. Denies any chest pain, shortness of breath. Complaining of right hip pain. Not in any acute distress. Patient is a [id number]-male with a past medical history significant for CHF s/p AICD , recent RIDGE stent placement, end-stage renal disease on dialysis, IDDM, HTN, hypothyroidism, BPH and developmental delay who was brought from assisted living [facility] after falling while attempting to close a vehicle's door 2 days ago. Right femoral neck fracture. Case discussed with orthopedics in detail. History of coronary artery disease and stent placement; we will hold Plavix. continue aspirin. Cardiology evaluation appreciated. Patient is high risk for orthopedic procedure. possible orthopedic procedure on . End-stage renal disease on dialysis; continue hemodialysis Tuesday and Tuesday. Nephrology evaluation appreciated. Case discussed with power of ip technology transactions attorneycourtney Torres in detail. Will follow up with orthopedics closely. upon discharge the patient will follow-up with PMD . Patient needs close follow-up with cardiology at [facility].
[2018-03-01 08:00] LABS: BASO # 0.03 K/mm3 (0.0-2.0); BASO % 0.3 % (0.0-3.0); EOS # 0.6 (0.0-0.7); EOS % 5.3 % (1.5-5.0); GRAN # 9.01 (1.4-6.5); GRAN % 77.9 % (50.0-68.0); HEMOGLOBIN 12.7 g/dL (14.0-18.0); LYMPH # 0.9 (1.2-3.4); LYMPH % 8.1 % (22.0-35.0); MEAN CELL VOLUME 93.2 fl (80.0-105.0); MEAN CORPUSCULAR HEMOGLOBIN 30.7 pg (25.0-35.0); MEAN CORPUSCULAR HGB CONC 32.9 g/dl (31.0-37.0); MONO % 8.4 % (1.0-6.0); RBC 4.14 10^6/uL (3.5-6.1); RED CELL DISTRIBUTION WIDTH 13.9 % (11.5-14.5); WHITE BLOOD COUNT 11.6 10^3/uL (4.5-11.0)
[2018-03-01 08:10] LABS: ALBUMIN 4.1 g/dL (3.0-4.8); CALCIUM 9.1 mg/dL (8.4-10.5)
[2018-03-01] MEDS: Febuxostat [Uloric] 40 MG (HOME MED) PO SCH (10:59)
[2018-03-01] MEDS: Multivitamin Vitamin B Complex (Nephro-Vite) Tab PO SCH (10:59)
[2018-03-01] MEDS: Levothyroxine 100 MCG TAB PO SCH (11:00)
--- NOTE | 2018-03-01 15:44 | CP.PCM.PN ---
Subjective - Date & Time of Evaluation Date of Evaluation: 03/01/18 Time of Evaluation: 15:44 - Subjective Subjective: Nephrology Consultation Note: Assessment: Stable Fall, Rt hip fracture Diabetic chronic Kidney Disease (E11.22) Hypertensive Chronic Kidney Disease (I12.0) End stage renal disease (N18.6) dependence on hemodialysis (Z99.2) (MWF) via PC Anemia (D64.9), Hyperphosphatemia (E83.39), Secondary Hyperparathyroidism (E21.1), HTN (I12.0) CAD s/p stent , sCHF s/p AICD Plan: for dialysis as per MWF schedule. Continue with Nephrovite 1 tab/day. PRBC as needed for anemia. not on KRYSTAL with dialysis as last Hb 12.6 Continue with phos binders, last phos level 5.3 BP control with meds as ordered. Patient not on RAAS allyn as BP low Glycemic control, Dialysis consistent diet Further work up/management as per primary team Dose meds/antibiotics (if needed) for ESRD status. Avoid fleets enema/magnesium based laxatives. orthopedic following Thanks for allowing me to participate in care of your patient. Will follow patient with you. Please call if any Qs Dr Jassi Espitia Office: [phone] Chief Complaint;fall HPI: Pt is a 62 M with hx of ESRD on hemodialysis (MWF) via PC @ [place] dialysis unit , last dialysis yesterday, chronic anemia, hyperphosphatemia, secondary hyperparathyroidism, Diabetes Mellitus, hypertension CAD s/p stent , sCHF s/p AICD presented with complaints of fall and Rt hip fracture. Renal consult requested for ESRD management. besides Rt hip pain, pt feels in usual health he lives in a [facility] ROS: Cardiovascular: No chest pain. Pulmonary: No shortness of breath Gastrointestinal: denies abdominal pain No nausea. No vomiting. Genitourinary: No pain while urinating. Denies blood in urine. All other negative except as mentioned in HPI Physical Examination: General Appearance: Comfortable, in no acute respiratory distress, co-operative . Vitals reviewed and noted as below Head; Atraumatic, normocephalic ENT: no ulcers no thrush. Tongue is midline. Oropharynx: no rash or ulcers. EYES: Pupils are equal, round and reactive to light accommodation. Eye muscles and extraocular movement intact. Sclera is anicteric. Neck; supple no lymphadenopathy, no thyromegaly or bruit Lungs: Normal respiratory rate/effort. Breath sounds bilateral equal and clear Heart: Normal rate. s1s2 normal. No rub or gallop. Extremities: no edema. No varicose veins Neurological: Patient is alert, awake and oriented to person, place and time. No focal deficit. Strength bilateral appropriate and equal Skin: Warm and dry. Normal turgor. No rash. Palpitation: Normal elasticity for age Abdomen: Abdomen is soft. Bowel sounds +. There is no abdominal tenderness, no guarding/rigidity or organomegaly Psych: limited insight and normal affect/mood MSK: no joint tenderness or swelling. Digits and nails normal, no deformity : kidney or bladder not palpable Access: PC Labs/imaging reviewed. Past medical history, past surgical history, family history, social history, all ergy reviewed and noted as below Family Hx: no hx of CKD. Non contributory Objective - Vital Signs/Intake and Output Vital Signs (last 24 hours): Temp Pulse Resp BP Pulse Ox 97.4 F L 89 18 93/67 L 97 03/01/18 14:00 03/01/18 14:00 03/01/18 14:00 03/01/18 14:00 03/01/18 14:00 - Medications Medications: Current Medications Aspirin (Ecotrin) 81 mg PO DAILY [facility] Last Admin: 03/01/18 10:59 Dose: Not Given Atorvastatin Calcium (Lipitor) 20 mg PO DAILY [facility] Last Admin: 03/01/18 10:59 Dose: Not Given Carvedilol (Coreg) 3.125 mg PO BID [facility] Last Admin: 03/01/18 10:55 Dose: Not Given Famotidine (Pepcid) 20 mg PO HS [facility] Last Admin: 02/28/18 21:11 Dose: 20 mg Levothyroxine Sodium (Synthroid) 100 mcg PO DAILY [facility] Last Admin: 03/01/18 11:00 Dose: Not Given Febuxostat [Uloric] (40 Mg (Home Med)) 40 mg PO DAILY [facility] Last Admin: 03/01/18 10:59 Dose: Not Given Sevelamer HCl (Renagel) 800 mg PO TID [facility] Last Admin: 03/01/18 13:22 Dose: 800 mg Tamsulosin HCl (Flomax) 0.4 mg PO DAILY [facility] Last Admin: 03/01/18 10:59 Dose: Not Given Tramadol HCl (Ultram) 50 mg PO Q6 PRN PRN Reason: Pain, severe (8-10) Last Admin: 03/01/18 13:27 Dose: 50 mg Vitamin B Complex/Vit C/Folic Acid (Nephro-Mali) 1 tab PO 0800 [facility] Last Admin: 03/01/18 10:59 Dose: Not Given - Labs Labs: 03/01/18 07:40 03/01/18 07:40 PT 12.3 SECONDS (9.4-12.5) 02/27/18 18:43 INR 1.08 02/27/18 18:43 APTT 29.3 Seconds (25.1-36.5) 02/27/18 18:43
--- NOTE | 2018-03-01 17:59 | CP.PCM.PN ---
Subjective - Date & Time of Evaluation Date of Evaluation: 03/01/18 Time of Evaluation: 17:00 - Subjective Subjective: Patient seen and examined sitting up at bedside. Cousin Melissa is at bedside. Pain is well controlled. No new complaints. Objective - Vital Signs/Intake and Output Vital Signs (last 24 hours): Temp Pulse Resp BP Pulse Ox 97.4 F L 89 18 93/67 L 97 03/01/18 14:00 03/01/18 14:00 03/01/18 14:00 03/01/18 14:00 03/01/18 14:00 - Medications Medications: Current Medications Albumin Human (Albumin Human 25% (12.5 Gm/50 Ml)) 25 gm IV MWF PRN PRN Reason: Other Aspirin (Ecotrin) 81 mg PO DAILY [facility] Last Admin: 03/01/18 10:59 Dose: Not Given Atorvastatin Calcium (Lipitor) 20 mg PO DAILY [facility] Last Admin: 03/01/18 10:59 Dose: Not Given Carvedilol (Coreg) 3.125 mg PO BID [facility] Last Admin: 03/01/18 10:55 Dose: Not Given Famotidine (Pepcid) 20 mg PO HS [facility] Last Admin: 02/28/18 21:11 Dose: 20 mg Levothyroxine Sodium (Synthroid) 100 mcg PO DAILY [facility] Last Admin: 03/01/18 11:00 Dose: Not Given Febuxostat [Uloric] (40 Mg (Home Med)) 40 mg PO DAILY [facility] Last Admin: 03/01/18 10:59 Dose: Not Given Sevelamer HCl (Renagel) 800 mg PO TID [facility] Last Admin: 03/01/18 13:22 Dose: 800 mg Tamsulosin HCl (Flomax) 0.4 mg PO DAILY [facility] Last Admin: 03/01/18 10:59 Dose: Not Given Tramadol HCl (Ultram) 50 mg PO Q6 PRN PRN Reason: Pain, severe (8-10) Last Admin: 03/01/18 13:27 Dose: 50 mg Vitamin B Complex/Vit C/Folic Acid (Nephro-Mali) 1 tab PO 0800 [facility] Last Admin: 03/01/18 10:59 Dose: Not Given - Labs Labs: 03/01/18 07:40 03/01/18 07:40 PT 12.3 SECONDS (9.4-12.5) 02/27/18 18:43 INR 1.08 1218 18:43 APTT 29.3 Seconds (25.1-36.5) 02/27/18 18:43 - Extremities Exam Additional comments: RLE: Tenderness at groin, no lateral hip tenderness no lesions, no masses sensation intact SP/DP/TN motor intact EHL/FHL/TA/G/HS/Q pedal pulses intact calves soft NT b/l Assessment and Plan (1) Closed subcapital fracture of right femur Assessment & Plan: -Dr. Sierra recommends conservative management at this time due to patient's high cardiac risk and multiple comorbidities, as well as patient being on half-way Plavix -pain control -PT/OT NWB with assistive aid -Family is welcome to second opinion. If surgical management is desired, recommend transfer to [facility] where his missile technician is able to manage him. -DVT ppx -Above plan was d/w patient and cousin Melissa at bedside. They express understanding and will consider second opinion. -above d/w Dr. Sierra in agreement Status: Acute
--- NOTE | 2018-03-02 01:11 | CP.PCM.PN ---
Subjective - Date & Time of Evaluation Date of Evaluation: 03/01/18 Time of Evaluation: 21:00 - Subjective Subjective: Patient was accepted to [facility] for management in case surgery is to be performed. Patient's Water Resource Project Manager Dr. Esparza and PMD Dr. Wright have accepted the patient. EMTALA papers were signed and sent to as well as the contract/'s EMTALA form. As of now currently waiting on a bed for patient for transfer to be complete. Patient's cousin Melissa is aware and in agreement with transfer. Objective - Vital Signs/Intake and Output Vital Signs (last 24 hours): Temp Pulse Resp BP Pulse Ox 97.4 F L 95 H 18 112/77 97 03/01/18 14:00 03/01/18 18:32 03/01/18 14:00 03/01/18 18:32 03/01/18 14:00 Intake and Output: 03/01/18 03/02/18 18:59 06:59 Intake Total 540 Output Total 200 Balance 340 - Medications Medications: Current Medications Albumin Human (Albumin Human 25% (12.5 Gm/50 Ml)) 25 gm IV MWF PRN PRN Reason: Other Aspirin (Ecotrin) 81 mg PO DAILY [facility] Last Admin: 03/01/18 10:59 Dose: Not Given Atorvastatin Calcium (Lipitor) 20 mg PO DAILY [facility] Last Admin: 03/01/18 10:59 Dose: Not Given Carvedilol (Coreg) 3.125 mg PO BID [facility] Last Admin: 03/01/18 18:32 Dose: 3.125 mg Famotidine (Pepcid) 20 mg PO HS [facility] Last Admin: 03/01/18 21:43 Dose: 20 mg Levothyroxine Sodium (Synthroid) 100 mcg PO DAILY [facility] Last Admin: 03/01/18 11:00 Dose: Not Given Febuxostat [Uloric] (40 Mg (Home Med)) 40 mg PO DAILY [facility] Last Admin: 03/01/18 10:59 Dose: Not Given Sevelamer HCl (Renagel) 800 mg PO TID [facility] Last Admin: 03/01/18 18:32 Dose: 800 mg Tamsulosin HCl (Flomax) 0.4 mg PO DAILY [facility] Last Admin: 03/01/18 10:59 Dose: Not Given Tramadol HCl (Ultram) 50 mg PO Q6 PRN PRN Reason: Pain, severe (8-10) Last Admin: 03/01/18 13:27 Dose: 50 mg Vitamin B Complex/Vit C/Folic Acid (Nephro-Mali) 1 tab PO 0800 [facility] Last Admin: 03/01/18 10:59 Dose: Not Given - Labs Labs: 03/01/18 07:40 03/01/18 07:40 PT 12.3 SECONDS (9.4-12.5) 02/27/18 18:43 INR 1.08 02/27/18 18:43 APTT 29.3 Seconds (25.1-36.5) 02/27/18 18:43
[2018-03-02 07:45] LABS: BASO # 0.05 K/mm3 (0.0-2.0); BASO % 0.4 % (0.0-3.0); EOS # 0.4 (0.0-0.7); EOS % 3.5 % (1.5-5.0); GRAN # 8.94 (1.4-6.5); GRAN % 75.1 % (50.0-68.0); HEMOGLOBIN 13.1 g/dL (14.0-18.0); LYMPH # 1.4 (1.2-3.4); LYMPH % 11.9 % (22.0-35.0); MEAN CELL VOLUME 92.7 fl (80.0-105.0); MEAN CORPUSCULAR HGB CONC 33.4 g/dl (31.0-37.0); MEAN PLATELET VOLUME 10.7 fl (7.0-11.0); MONO # 1.1 (0.1-0.6); MONO % 9.1 % (1.0-6.0); RBC 4.23 10^6/uL (3.5-6.1); RED CELL DISTRIBUTION WIDTH 13.8 % (11.5-14.5); WHITE BLOOD COUNT 11.9 10^3/uL (4.5-11.0)
[2018-03-02 08:03] LABS: ALB/GLOB RATIO 0.9 (1.1-1.8); ALBUMIN 4.1 g/dL (3.0-4.8); CALCIUM 9.1 mg/dL (8.4-10.5)
[2018-03-02] MEDS: Multivitamin Vitamin B Complex (Nephro-Vite) Tab PO SCH (08:45)
[2018-03-02] MEDS: Levothyroxine 100 MCG TAB PO SCH (10:49)
[2018-03-02] MEDS: Febuxostat [Uloric] 40 MG (HOME MED) PO SCH (10:52)
--- NOTE | 2018-03-02 14:56 | CP.PCM.PN ---
Subjective - Date & Time of Evaluation Date of Evaluation: 03/02/18 Time of Evaluation: 14:55 - Subjective Subjective: Nephrology Consultation Note: Assessment: Stable Fall, Rt hip fracture Diabetic chronic Kidney Disease (E11.22) Hypertensive Chronic Kidney Disease (I12.0) End stage renal disease (N18.6) dependence on hemodialysis (Z99.2) (MWF) via PC Anemia (D64.9), Hyperphosphatemia (E83.39), Secondary Hyperparathyroidism (E21.1), HTN (I12.0) CAD s/p stent , sCHF s/p AICD Plan: for dialysis as per MWF schedule. Continue with Nephrovite 1 tab/day. PRBC as needed for anemia. not on KRYSTAL with dialysis as last Hb 12.6 Continue with phos binders, last phos level 5.3 BP control with meds as ordered. Patient not on RAAS allyn as BP low Glycemic control, Dialysis consistent diet Further work up/management as per primary team Dose meds/antibiotics (if needed) for ESRD status. Avoid fleets enema/magnesium based laxatives. orthopedic following. pt for transfer to [facility] Thanks for allowing me to participate in care of your patient. Will follow patient with you. Please call if any Qs. d/w healthcare facility administrator and team Dr Jassi Espitia Office: [phone] Chief Complaint;fall HPI: Pt is a 62 M with hx of ESRD on hemodialysis (MWF) via PC @ [facility] dialysis unit , last dialysis yesterday, chronic anemia, hyperphosphatemia, secondary hyperparathyroidism, Diabetes Mellitus, hypertension CAD s/p stent , sCHF s/p AICD presented with complaints of fall and Rt hip fracture. Renal consult requested for ESRD management. besides Rt hip pain, pt feels in usual health he lives in a half-way ROS: Cardiovascular: No chest pain. Pulmonary: No shortness of breath Gastrointestinal: denies abdominal pain No nausea. No vomiting. Genitourinary: No pain while urinating. Denies blood in urine. All other negative except as mentioned in HPI Physical Examination: General Appearance: Comfortable, in no acute respiratory distress, co-operative . Vitals reviewed and noted as below Head; Atraumatic, normocephalic ENT: no ulcers no thrush. Tongue is midline. Oropharynx: no rash or ulcers. EYES: Pupils are equal, round and reactive to light accommodation. Eye muscles and extraocular movement intact. Sclera is anicteric. Neck; supple no lymphadenopathy, no thyromegaly or bruit Lungs: Normal respiratory rate/effort. Breath sounds bilateral equal and clear Heart: Normal rate. s1s2 normal. No rub or gallop. Extremities: no edema. No varicose veins Neurological: Patient is alert, awake and oriented to person, place and time. No focal deficit. Strength bilateral appropriate and equal Skin: Warm and dry. Normal turgor. No rash. Palpitation: Normal elasticity for age Abdomen: Abdomen is soft. Bowel sounds +. There is no abdominal tenderness, no guarding/rigidity or organomegaly Psych: limited insight and normal affect/mood MSK: no joint tenderness or swelling. Digits and nails normal, no deformity : kidney or bladder not palpable Access: PC Labs/imaging reviewed. Past medical history, past surgical history, family history, social history, allergy reviewed and noted as below Family Hx: no hx of CKD. Non contributory Objective - Vital Signs/Intake and Output Vital Signs (last 24 hours): Temp Pulse Resp BP Pulse Ox 97.8 F 95 H 20 117/69 95 03/02/18 06:00 03/02/18 06:00 03/02/18 06:00 03/02/18 10:49 03/02/18 06:00 Intake and Output: 03/02/18 03/02/18 06:59 18:59 Intake Total 540 Output Total 700 Balance -160 - Medications Medications: Current Medications Albumin Human (Albumin Human 25% (12.5 Gm/50 Ml)) 25 gm IV MWF PRN PRN Reason: Other Aspirin (Ecotrin) 81 mg PO DAILY [facility] Last Admin: 03/02/18 10:52 Dose: 81 mg Atorvastatin Calcium (Lipitor) 20 mg PO DAILY [facility] Last Admin: 03/02/18 10:49 Dose: 20 mg Carvedilol (Coreg) 3.125 mg PO BID [facility] Last Admin: 03/02/18 10:49 Dose: 3.125 mg Famotidine (Pepcid) 20 mg PO HS [facility] Last Admin: 03/01/18 21:43 Dose: 20 mg Levothyroxine Sodium (Synthroid) 100 mcg PO DAILY [facility] Last Admin: 03/02/18 10:49 Dose: 100 mcg Febuxostat [Uloric] (40 Mg (Home Med)) 40 mg PO DAILY [facility] Last Admin: 03/02/18 10:52 Dose: Not Given Sevelamer HCl (Renagel) 800 mg PO TID [facility] Last Admin: 03/02/18 13:10 Dose: Not Given Tamsulosin HCl (Flomax) 0.4 mg PO DAILY [facility] Last Admin: 03/02/18 10:48 Dose: 0.4 mg Tramadol HCl (Ultram) 50 mg PO Q6 PRN PRN Reason: Pain, severe (8-10) Last Admin: 03/02/18 13:30 Dose: 50 mg Vitamin B Complex/Vit C/Folic Acid (Nephro-Mali) 1 tab PO 0800 [facility] Last Admin: 03/02/18 08:45 Dose: 1 tab - Labs Labs: 03/02/18 07:25 03/02/18 07:25 PT 12.3 SECONDS (9.4-12.5) 02/27/18 18:43 INR 1.08 02/27/18 18:43 APTT 29.3 Seconds (25.1-36.5) 02/27/18 18:43
--- NOTE | 2018-03-02 17:50 | PN ---
DATE: 03/02/2018 CARDIOLOGY FOLLOWUP SUBJECTIVE: The patient is without shortness of breath. He is feeling better. PHYSICAL EXAMINATION: VITAL SIGNS: Blood pressure 117/69, heart rate is in the 90s. NECK: Negative JVD. LUNGS: Without rales. HEART: S1, S2. EXTREMITIES: Without edema. LABORATORY DATA: Hemoglobin is 13. BUN and creatinine is 37 and 5. IMPRESSION: 1. Hip fracture. 2. Diabetic cardiomyopathy. 3. End-stage renal disease. 4. History of coronary artery disease. 5. Hypercholesterolemia. PLAN: Given these findings, the patient is scheduled for transfer to continued care. Merlin Lopez MD
--- NOTE | 2018-03-02 22:26 | CP.PCM.DIS ---
<Anthony Velázquez - Last Filed: 03/02/18 22:11> Provider - Provider Date of Admission: 02/27/18 16:40 Attending physician: Cecile Rahman MD Consults: 02/27/18 10:34 Consult [Physician Consult] Stat Comment: Consulting Provider: Kaity Helms Consulting Physician: Kaity Helms Reason for Consult: Dialysis 02/27/18 17:10 Physician Consult Stat Comment: Consulting Provider: Edy Sierra III Consulting Physician: Edy Sierra III Reason for Consult: Acute mildly impacted right subcapital femoral neck fracture 02/27/18 19:34 Physician Consult Routine Comment: Consulting Provider: Merlin Lopez Consulting Physician: Merlin Lopez Reason for Consult: risk stratification for potential femoral neck fracture 02/27/18 20:15 Case Management Referral Routine Comment: ASSISTED LIVING PROGRAM Physician Instructions: Reason For Exam: EVALUATION Reason for Referral: Physicist Astrophysics Eval Inpatient BIRD TENDER Core Measures Referral Routine Comment: Physician Instructions: Reason For Exam: EVALUATION Transition In Care/Readmission Reduction Routine Comment: Physician Instructions: Reason For Exam: EVALUATION 02/27/18 20:19 Nursing Referral for Palliative Care Routine Comment: Physician Instructions: Reason For Exam: EVALUATION Social Work Referral Routine Comment: DISCHARGE TO ASSISTED LIVING PROGRAM Physician Instructions: Reason For Exam: EVALUATION Time Spent in preparation of Discharge (in minutes): 45 Diagnosis - Discharge Diagnosis (1) Hip fracture Status: Acute Hospital Course - Lab Results Lab Results: Micro Results 02/27/18 18:43 Blood-Venous Blood Culture - Preliminary NO GROWTH AFTER 3 DAYS 02/27/18 18:00 Blood-Venous Blood Culture - Preliminary NO GROWTH AFTER 3 DAYS Most Recent Lab Values WBC 11.9 10^3/uL (4.5-11.0) H 03/02/18 07:25 RBC 4.23 10^6/uL (3.5-6.1) 03/02/18 07:25 Hgb 13.1 g/dL (14.0-18.0) L 03/02/18 07:25 Hct 39.2 % (42.0-52.0) L 03/02/18 07:25 MCV 92.7 fl (80.0-105.0) 03/02/18 07:25 MCH 31.0 pg (25.0-35.0) 03/02/18 07:25 MCHC 33.4 g/dl (31.0-37.0) 03/02/18 07:25 RDW 13.8 % (11.5-14.5) 03/02/18 07:25 Plt Count 273 10^3/uL (120.0-450.0) 03/02/18 07:25 MPV 10.7 fl (7.0-11.0) 03/02/18 07:25 Gran % 75.1 % (50.0-68.0) H 03/02/18 07:25 Lymph % (Auto) 11.9 % (22.0-35.0) L 03/02/18 07:25 [place] % (Auto) 9.1 % (1.0-6.0) H 03/02/18 07:25 Eos % (Auto) 3.5 % (1.5-5.0) 03/02/18 07:25 Baso % (Auto) 0.4 % (0.0-3.0) 03/02/18 07:25 Gran # 8.94 (1.4-6.5) H 03/02/18 07:25 Lymph # (Auto) 1.4 (1.2-3.4) 03/02/18 07:25 [place] # (Auto) 1.1 (0.1-0.6) H 03/02/18 07:25 Eos # (Auto) 0.4 (0.0-0.7) 03/02/18 07:25 Baso # (Auto) 0.05 K/mm3 (0.0-2.0) 03/02/18 07:25 PT 12.3 SECONDS (9.4-12.5) 02/27/18 18:43 INR 1.08 02/27/18 18:43 APTT 29.3 Seconds (25.1-36.5) 02/27/18 18:43 Sodium 138 mmol/L (132-148) 03/02/18 07:25 Potassium 4.1 mmol/L (3.6-5.0) 03/02/18 07:25 Chloride 98 mmol/L (98-107) 03/02/18 07:25 Carbon Dioxide 26 mmol/L (21-33) 03/02/18 07:25 Anion Gap 18 (10-20) 03/02/18 07:25 BUN 37 mg/dL (7-21) H 03/02/18 07:25 Creatinine 5.0 mg/dl (0.8-1.5) H 03/02/18 07:25 Est GFR ( Amer) 14 03/02/18 07:25 Est GFR (Non-Af Amer) 12 03/02/18 07:25 Random Glucose 140 mg/dL (70-110) H 03/02/18 07:25 Calcium 9.1 mg/dL (8.4-10.5) 03/02/18 07:25 Phosphorus 5.3 mg/dL (2.5-4.5) H 02/28/18 07:30 Magnesium 2.0 mg/dL (1.7-2.2) 02/28/18 07:30 Total Bilirubin 1.3 mg/dL (0.2-1.3) 03/02/18 07:25 AST 23 U/L (17-59) 03/02/18 07:25 ALT 18 U/L (7-56) 03/02/18 07:25 Alkaline Phosphatase 86 U/L (38-126) 03/02/18 07:25 Total Protein 8.5 g/dL (5.8-8.3) H 03/02/18 07:25 Albumin 4.1 g/dL (3.0-4.8) 03/02/18 07:25 Globulin 4.4 gm/dL 03/02/18 07:25 Albumin/Globulin Ratio 0.9 (1.1-1.8) L 03/02/18 07:25 Procalcitonin 0.40 NG/ML (0.19-0.49) 02/27/18 18:43 Urine Color Yellow (YELLOW) 03/01/18 01:00 Urine Appearance Clear (CLEAR) 03/01/18 01:00 Urine pH 7.5 (4.7-8.0) 03/01/18 01:00 Ur Specific [place] 1.015 (1.005-1.035) 03/01/18 01:00 Urine Protein 100 mg/dL (<30 mg/dL) H 03/01/18 01:00 Urine Glucose (UA) 100 mg/dL (NEGATIVE) H 03/01/18 01:00 Urine Ketones Negative mg/dL (NEGATIVE) 03/01/18 01:00 Urine Blood Negative (NEGATIVE) 03/01/18 01:00 Urine Nitrate Negative (NEGATIVE) 03/01/18 01:00 Urine Bilirubin Negative (NEGATIVE) 03/01/18 01:00 Urine Urobilinogen 0.2 E.U./dL (<1 E.U./dL) 03/01/18 01:00 Ur Leukocyte Esterase Negative [place]/uL (NEGATIVE) 03/01/18 01:00 Urine RBC 0 - 2 /hpf (0-2) 03/01/18 01:00 Urine WBC 0 - 2 /hpf (0-6) 03/01/18 01:00 Ur Epithelial Cells 0 - 2 /hpf (0-5) 03/01/18 01:00 Urine Bacteria None (NEG) 03/01/18 01:00 Blood Type A POSITIVE 03/01/18 15:10 Antibody Screen Negative 03/01/18 15:10 BBK History Checked Patient has bt 03/01/18 15:10 - Hospital Course Hospital Course: Upon Admission: 19-barz-taj-male with a past medical history significant for CHF s/p AICD with EF 34%, CKD, ESKD on HD, CAD s/p PCI, IDDM, HTN, hypothyroidism, BPH and developmental delay who was brought to ED on 02/27/18 from assisted living halfway after falling while attempting to close a vehicle's door 2 days ago. Patient states he lost his balance, and fell forward onto his right side, hitting his right hip on the ground first. Patient denies hitting his head. Patient was seen in the ED on 02/25/18 (the day of the fall) however pathology of the hip was negative according to x-ray, and Patient was discharged back to halfway. Today, Patient continued to complain of pain and difficulty walking, which prompted him to return to the ED. Acute mildly impacted right sub-capital femoral neck fracture with small joint effusion with No dislocation was found on Hip CT scan (02/27/18) (Please see full report for details). Pt was admitted for possible Orthopedic surgery. Hospital Course: During his hospital stay, Blood work was done with WBC of 13.1 most likely reactive to the fracture. Orthopedic surgery, Cardiology, Nephrology teams were consulted on the case. Patient's pain was controlled with pain medications. Given Patient's high risk cardiac past medical history and being on life long plavix Patient was recommended for conservative management. Patient was also suggested to get get a second opinion [facility] where his supervisor stock [employer] could manage him. The plan was discussed with Patient and his family in detail and they expressed interest in obtaining a second opinion. The medical plan for danna was explained to the pt and the pts family and they all expressed understanding and agreement with the medical plan. The pt and the families questions and concerns were all addressed prior to transfer. Upon Discharge: Patient's vitals are stable. Pt was advised to F/U with his supervisor [employer] for the second opinion. Patient is stable for discharge from medicine standpoint to be transferred to [facility]. Disclaimer: Written above is a synopsis of patients current hospital admission. For full admission refer to EMR. Discharge Exam - Head Exam Head Exam: ATRAUMATIC, NORMAL INSPECTION, NORMOCEPHALIC - Eye Exam Eye Exam: EOMI, Normal appearance, PERRL - Respiratory Exam Respiratory Exam: Clear to PA & Lateral, NORMAL BREATHING PATTERN, UNREMARKABLE. absent: Accessory Muscle Use, Chest Wall Tenderness, Rales, Rhonchi, Wheezes, Respiratory Distress, Stridor - Cardiovascular Exam Cardiovascular Exam: RRR, +S1, +S2. absent: Gallop, Rubs - GI/Abdominal Exam GI & Abdominal Exam: Normal Bowel Sounds, Soft. absent: Tenderness Additional comments: periumbilical hernia, reducible, nontender to palpation - Back Exam Back exam: NORMAL INSPECTION. absent: CVA tenderness (L), CVA tenderness (R) - Neurological Exam Neurological exam: Alert, Oriented x3 - Psychiatric Exam Psychiatric exam: Normal Affect, Normal Mood - Skin Skin Exam: Diaphoretic, Normal Color, Warm Discharge Plan - Follow Up Plan Condition: FAIR Disposition: Transfer [facility] Instructions: Hip Fracture Additional Instructions: PLAVIX IS ON HOLD FOR SURGERY. RE-START PER HEEL SEATER. PATIENT HAS BEEN OFF OF PLAVIX SINCE 02/27/18. <Cecile Rahman - Last Filed: 03/05/18 13:13> Provider - Provider Date of Admission: 02/27/18 16:40 Attending physician: Cecile Rahman MD Consults: 02/27/18 10:34 Consult [Physician Consult] Stat Comment: Consulting Provider: Kaity Helms Consulting Physician: Kaity Helms Reason for Consult: Dialysis 02/27/18 17:10 Physician Consult Stat Comment: Consulting Provider: Edy Sierra III Consulting Physician: Edy Sierra III Reason for Consult: Acute mildly impacted right subcapital femoral neck fracture 02/27/18 19:34 Physician Consult Routine Comment: Consulting Provider: Merlin Lopez Consulting Physician: Merlin Lopez Reason for Consult: risk stratification for potential femoral neck fracture 02/27/18 20:15 Case Management Referral Routine Comment: ASSISTED LIVING PROGRAM Physician Instructions: Reason For Exam: EVALUATION Reason for Referral: Physicist Astrophysics Eval Inpatient BIRD TENDER Core Measures Referral Routine Comment: Physician Instructions: Reason For Exam: EVALUATION Transition In Care/Readmission Reduction Routine Comment: Physician Instructions: Reason For Exam: EVALUATION 02/27/18 20:19 Nursing Referral for Palliative Care Routine Comment: Physician Instructions: Reason For Exam: EVALUATION Social Work Referral Routine Comment: DISCHARGE TO ASSISTED LIVING PROGRAM Physician Instructions: Reason For Exam: EVALUATION Hospital Course - Lab Results Lab Results: Micro Results 02/27/18 18:43 Blood-Venous Blood Culture - Final NO GROWTH AFTER 5 DAYS 02/27/18 18:43 Blood-Venous Gram Stain - Final TEST NOT PERFORMED 02/27/18 18:00 Blood-Venous Blood Culture - Final NO GROWTH AFTER 5 DAYS 02/27/18 18:00 Blood-Venous Gram Stain - Final TEST NOT PERFORMED Most Recent Lab Values WBC 11.2 10^3/uL (4.5-11.0) H 03/03/18 07:00 RBC 4.40 10^6/uL (3.5-6.1) 03/03/18 07:00 Hgb 13.5 g/dL (14.0-18.0) L 03/03/18 07:00 Hct 40.5 % (42.0-52.0) L 03/03/18 07:00 MCV 92.0 fl (80.0-105.0) 03/03/18 07:00 MCH 30.7 pg (25.0-35.0) 03/03/18 07:00 MCHC 33.3 g/dl (31.0-37.0) 03/03/18 07:00 RDW 13.8 % (11.5-14.5) 03/03/18 07:00 Plt Count 286 10^3/uL (120.0-450.0) 03/03/18 07:00 MPV 11.0 fl (7.0-11.0) 03/03/18 07:00 Gran % 73.3 % (50.0-68.0) H 03/03/18 07:00 Lymph % (Auto) 12.4 % (22.0-35.0) L 03/03/18 07:00 [place] % (Auto) 8.3 % (1.0-6.0) H 03/03/18 07:00 Eos % (Auto) 5.2 % (1.5-5.0) H 03/03/18 07:00 Baso % (Auto) 0.8 % (0.0-3.0) 03/03/18 07:00 Gran # 8.22 (1.4-6.5) H 03/03/18 07:00 Lymph # (Auto) 1.4 (1.2-3.4) 03/03/18 07:00 [place] # (Auto) 0.9 (0.1-0.6) H 03/03/18 07:00 Eos # (Auto) 0.6 (0.0-0.7) 03/03/18 07:00 Baso # (Auto) 0.09 K/mm3 (0.0-2.0) 03/03/18 07:00 PT 12.3 SECONDS (9.4-12.5) 02/27/18 18:43 INR 1.08 02/27/18 18:43 APTT 29.3 Seconds (25.1-36.5) 02/27/18 18:43 Sodium 140 mmol/L (132-148) 03/03/18 07:00 Potassium 4.3 mmol/L (3.6-5.0) 03/03/18 07:00 Chloride 98 mmol/L (98-107) 03/03/18 07:00 Carbon Dioxide 27 mmol/L (21-33) 03/03/18 07:00 Anion Gap 19 (10-20) 03/03/18 07:00 BUN 53 mg/dL (7-21) H 03/03/18 07:00 Creatinine 6.8 mg/dl (0.8-1.5) H 03/03/18 07:00 Est GFR ( Amer) 10 03/03/18 07:00 Est GFR (Non-Af Amer) 8 03/03/18 07:00 Random Glucose 127 mg/dL (70-110) H 03/03/18 07:00 Calcium 9.7 mg/dL (8.4-10.5) 03/03/18 07:00 Phosphorus 5.3 mg/dL (2.5-4.5) H 02/28/18 07:30 Magnesium 2.0 mg/dL (1.7-2.2) 02/28/18 07:30 Total Bilirubin 1.1 mg/dL (0.2-1.3) 03/03/18 07:00 AST 21 U/L (17-59) 03/03/18 07:00 ALT 18 U/L (7-56) 03/03/18 07:00 Alkaline Phosphatase 91 U/L (38-126) 03/03/18 07:00 Total Protein 8.5 g/dL (5.8-8.3) H 03/03/18 07:00 Albumin 4.2 g/dL (3.0-4.8) 03/03/18 07:00 Globulin 4.3 gm/dL 03/03/18 07:00 Albumin/Globulin Ratio 1.0 (1.1-1.8) L 03/03/18 07:00 Procalcitonin 0.40 NG/ML (0.19-0.49) 02/27/18 18:43 Urine Color Yellow (YELLOW) 03/01/18 01:00 Urine Appearance Clear (CLEAR) 03/01/18 01:00 Urine pH 7.5 (4.7-8.0) 03/01/18 01:00 Ur Specific [place] 1.015 (1.005-1.035) 03/01/18 01:00 Urine Protein 100 mg/dL (<30 mg/dL) H 03/01/18 01:00 Urine Glucose (UA) 100 mg/dL (NEGATIVE) H 03/01/18 01:00 Urine Ketones Negative mg/dL (NEGATIVE) 03/01/18 01:00 Urine Blood Negative (NEGATIVE) 03/01/18 01:00 Urine Nitrate Negative (NEGATIVE) 03/01/18 01:00 Urine Bilirubin Negative (NEGATIVE) 03/01/18 01:00 Urine Urobilinogen 0.2 E.U./dL (<1 E.U./dL) 03/01/18 01:00 Ur Leukocyte Esterase Negative [place]/uL (NEGATIVE) 03/01/18 01:00 Urine RBC 0 - 2 /hpf (0-2) 03/01/18 01:00 Urine WBC 0 - 2 /hpf (0-6) 03/01/18 01:00 Ur Epithelial Cells 0 - 2 /hpf (0-5) 03/01/18 01:00 Urine Bacteria None (NEG) 03/01/18 01:00 Blood Type A POSITIVE 03/01/18 15:10 Antibody Screen Negative 03/01/18 15:10 BBK History Checked Patient has bt 03/01/18 15:10 Attending/Attestation - Attestation I have personally seen and examined this patient.: Yes I have fully participated in the care of the patient.: Yes I have reviewed all pertinent clinical information, including history, physical exam and plan: Yes Notes (Text): 03/05/18 13:06 attending note; Patient seen and examined with resident. Patient is alert and awake. denies any fevers, chills. Denies any nausea, vomiting. Denies any chest pain, shortness of breath. Complaining of right hip pain. Not in any acute distress. Patient is a 56-oxxe-pki-male with a past medical history significant for CHF s/p AICD , recent RIDGE stent placement, end-stage renal disease on dialysis, IDDM, HTN, hypothyroidism, BPH and developmental delay who was brought from assisted living halfway after falling while attempting to close a vehicle's door 2 days ago. Right femoral neck fracture. Case discussed with orthopedics in detail. History of coronary artery disease and stent placement; we will hold Plavix. continue aspirin. Cardiology evaluation appreciated. Patient is high risk for orthopedic procedure. It was recommended by orthopedics that The patient should be transferred to [facility] for possible orthopedic procedure because of multiple comorbidities. Case discussed with power of employment law attorney in detail. Case discussed with [facility] orthopedics DR. Gr in detail. case discussed wit supervisor [employer] on-call in detail. Patient is accepted. Awaiting bed in [facility]. End-stage renal disease on dialysis; continue hemodialysis Tuesday and Tuesday. Nephrology evaluation appreciated. Case discussed with power of employment law attorney Melissa in detail. upon discharge the patient will follow-up with PMD . Patient needs close follow-up with cardiology at [facility].
[2018-03-03 07:27] LABS: BASO # 0.09 K/mm3 (0.0-2.0); BASO % 0.8 % (0.0-3.0); EOS # 0.6 (0.0-0.7); EOS % 5.2 % (1.5-5.0); GRAN # 8.22 (1.4-6.5); GRAN % 73.3 % (50.0-68.0); HEMOGLOBIN 13.5 g/dL (14.0-18.0); LYMPH # 1.4 (1.2-3.4); LYMPH % 12.4 % (22.0-35.0); MEAN CORPUSCULAR HEMOGLOBIN 30.7 pg (25.0-35.0); MEAN CORPUSCULAR HGB CONC 33.3 g/dl (31.0-37.0); MONO # 0.9 (0.1-0.6); MONO % 8.3 % (1.0-6.0); RBC 4.4 10^6/uL (3.5-6.1); RED CELL DISTRIBUTION WIDTH 13.8 % (11.5-14.5); WHITE BLOOD COUNT 11.2 10^3/uL (4.5-11.0)
[2018-03-03 07:42] VITALS: RESP 18
[2018-03-03 07:50] LABS: ALBUMIN 4.2 g/dL (3.0-4.8); CALCIUM 9.7 mg/dL (8.4-10.5)
[2018-03-03] MEDS: Multivitamin Vitamin B Complex (Nephro-Vite) Tab PO SCH (09:00)
[2018-03-03] MEDS ORDERED: Albumin Human 25% (12.5 gm/50 ml) IV PRN (10:00)
[2018-03-03] MEDS: Febuxostat [Uloric] 40 MG (HOME MED) PO SCH (10:00)
[2018-03-03] MEDS: Levothyroxine 100 MCG TAB PO SCH (10:00)
--- NOTE | 2018-03-03 12:48 | CP.PCM.PN ---
<Lisa Lowery - Last Filed: 03/03/18 12:42> Subjective - Date & Time of Evaluation Date of Evaluation: 03/03/18 Time of Evaluation: 09:10 - Subjective Subjective: PGY1 Medicine Progress Note for Dr. Rahman Patient was seen at bedside this morning. No acute events overnight. Patient without complaints. Patient tolerating breakfast without issue. Patient denies chest pain, shortness of breath, palpitations, lower extremity pain, numbness and/or tingling, dizziness, headache, nausea, vomiting and/or fever. Objective - Vital Signs/Intake and Output Vital Signs (last 24 hours): Temp Pulse Resp BP Pulse Ox 98 F 78 18 100/64 97 03/03/18 06:00 03/03/18 06:00 03/03/18 06:00 03/03/18 06:00 03/03/18 06:00 Intake and Output: 03/03/18 03/03/18 06:59 18:59 Intake Total 120 Output Total 400 Balance -280 - Medications Medications: Current Medications Albumin Human (Albumin Human 25% (12.5 Gm/50 Ml)) 25 gm IV MWF PRN PRN Reason: Other Aspirin (Ecotrin) 81 mg PO DAILY [facility] Last Admin: 03/02/18 10:52 Dose: 81 mg Atorvastatin Calcium (Lipitor) 20 mg PO DAILY [facility] Last Admin: 03/02/18 10:49 Dose: 20 mg Carvedilol (Coreg) 3.125 mg PO BID [facility] Last Admin: 03/02/18 17:17 Dose: 3.125 mg Famotidine (Pepcid) 20 mg PO HS [facility] Last Admin: 03/02/18 21:32 Dose: 20 mg Levothyroxine Sodium (Synthroid) 100 mcg PO DAILY [facility] Last Admin: 03/02/18 10:49 Dose: 100 mcg Febuxostat [Uloric] (40 Mg (Home Med)) 40 mg PO DAILY [facility] Last Admin: 03/02/18 10:52 Dose: Not Given Sevelamer HCl (Renagel) 800 mg PO TID [facility] Last Admin: 03/02/18 17:18 Dose: Not Given Tamsulosin HCl (Flomax) 0.4 mg PO DAILY [facility] Last Admin: 03/02/18 10:48 Dose: 0.4 mg Tramadol HCl (Ultram) 50 mg PO Q6 PRN PRN Reason: Pain, severe (8-10) Last Admin: 03/02/18 13:30 Dose: 50 mg Vitamin B Complex/Vit C/Folic Acid (Nephro-Mali) 1 tab PO 0800 ALFONSO Last Admin: 03/02/18 08:45 Dose: 1 tab - Labs Labs: 03/03/18 07:00 03/03/18 07:00 PT 12.3 SECONDS (9.4-12.5) 02/27/18 18:43 INR 1.08 02/27/18 18:43 APTT 29.3 Seconds (25.1-36.5) 02/27/18 18:43 - Additional Findings Additional findings: - Constitutional Appears: Non-toxic, No Acute Distress - Head Exam Head Exam: ATRAUMATIC, NORMAL INSPECTION, NORMOCEPHALIC - Eye Exam Eye Exam: EOMI, Normal appearance, PERRL Pupil Exam: NORMAL ACCOMODATION - ENT Exam ENT Exam: Mucous Membranes Moist, Normal Exam - Neck Exam Neck exam: Positive for: Full Rom, Normal Inspection. Negative for: Lymphadenopathy, Tenderness - Respiratory Exam Respiratory Exam: Clear to Auscultation Bilateral, NORMAL BREATHING PATTERN. absent: Accessory Muscle Use, Chest Wall Tenderness, Decreased Breath Sounds, Prolonged Expiratory Phase, Rales, Rhonchi, Wheezes, Respiratory Distress, Stridor - Cardiovascular Exam Cardiovascular Exam: REGULAR RHYTHM, +S1, +S2. absent: Gallop, Irregular Rhythm, +S4 - GI/Abdominal Exam GI & Abdominal Exam: Hernia (periumbilical hernia, reducible, nontender to palpation ), Normal Bowel Sounds, Soft. absent: Distended, Firm, Rebound, Rigid, Tenderness - Extremities Exam Extremities exam: Negative for: joint swelling, tenderness, pedal pulses present, neurovascularly in tact - Back Exam Back exam: FULL ROM, NORMAL INSPECTION. absent: CVA tenderness (L), CVA tenderness (R), muscle spasm - Neurological Exam Neurological exam: Alert, CN II-XII Intact, Oriented x3, Reflexes Normal - Psychiatric Exam Psychiatric exam: Flat Affect, Normal Affect, Normal Mood - Skin Skin Exam: Dry, Normal Color Assessment and Plan - Assessment and Plan (Free Text) Assessment: Mr. Reece is a 73-pyqh-lws-male with a past medical history significant for CHF s/p AICD with EF 34%, CKD (recently started on HD MWF; Dr. Helms [employer]), CAD s/p PCI, IDDM, HTN, hypothyroidism, BPH and developmental delay who was [facility] assisted living [facility] after falling while attempting to close a vehicle's door. Patient admitted for further Orthopedic evaluation. Patient is pending transfer to tertiary center for Hip surgery. Currently hemodynamically stable and otherwise medically optimized. S/P Mechanical Fall - CT R Hip 02/27: Status post trauma: acute mildly impacted right subcapital femoral neck fracture with small joint effusion. No dislocation. (Please see full report for details) - Tramadol 50mg PO Q12 - Neurovascularly in tact on exam - Orthopedic Surgery consulted; Dr. Sierra - Recommends internal pinning planned once transferred to tertiary center - Patient's records from most recent cath obtained and reviewed (see chart for details) - Cardiology (Dr. Lopez) consulted; recommendations appreciated Leukocytosis; improving - WBC=11.2 - Likely reactive - Procal low =0.4 - Blood Cx: no growth x3 days - Monitor CBC History of CKD; on Dialysis MWF - [employer] consulted; Dr. Helms: recommendations appreciated - Patient still receiving dialysis while hospitalized (dialysis was yesterday and plan for tomorrow) - BUN/Cr = 44/5.5 - Urinalysis: +protein, + glucose - Monitor CMP, Mg, Phos in Am History of CAD s/p PCI - Cardiology consulted; Dr. Lopez; recommendations appreciated - EKG obtained - Patient's records from most recent cath obtained and reviewed (see chart for details) - Continue home med: Lipitor - No acute issues - Monitor History of Insulin Dependent DMT2 - ISS - Hypoglycemic protocol - Accu checks ACHS - Monitor History of Hypertension - Continue home med: Coreg - No acute issues - Monitor vitals History of Hyperthyroidism - Synthroid 100mcg PO daily - No acute issues Patient seen and case discussed with Dr. Josiah Lowery PGY1 <Cecile Rahman - Last Filed: 03/05/18 13:46> Objective - Vital Signs/Intake and Output Vital Signs (last 24 hours): Temp Pulse Resp BP Pulse Ox 97.6 F 98 H 18 90/65 L 96 03/03/18 14:00 03/03/18 14:00 03/03/18 14:00 03/03/18 14:00 03/03/18 14:00 - Labs Labs: 03/03/18 07:00 03/03/18 07:00 PT 12.3 SECONDS (9.4-12.5) 02/27/18 18:43 INR 1.08 02/27/18 18:43 APTT 29.3 Seconds (25.1-36.5) 02/27/18 18:43 Attending/Attestation - Attestation I have personally seen and examined this patient.: Yes I have fully participated in the care of the patient.: Yes I have reviewed all pertinent clinical information, including history, physical exam and plan: Yes Notes (Text): 03/05/18 13:44 attending note; Patient seen and examined with resident. Patient is alert and awake. denies any fevers, chills. Denies any nausea, vomiting. Denies any chest pain, shortness of breath. denies hip pain. Not in any acute distress. Patient is a 70-wocc-kwc-male with a past medical history significant for CHF s/p AICD , recent RIDGE stent placement, end-stage renal disease on dialysis, IDDM, HTN, hypothyroidism, BPH and developmental delay who was [facility] living [facility] after falling Right femoral neck fracture. History of coronary artery disease and stent placement; we will hold Plavix. continue aspirin. Cardiology evaluation appreciated. Patient is high risk for orthopedic procedure. It was recommended by orthopedics that The patient should be transferred to [facility] for possible orthopedic procedure because of multiple comorbidities. Case discussed with power of senior attorney in detail. Case discussed with [facility] orthopedics DR. Gr in detail. case discussed wit sample card maker on-call in detail. Patient is accepted. End-stage renal disease on dialysis; continue hemodialysis Tuesday and Tuesday. Nephrology evaluation appreciated. upon discharge the patient will follow-up with PMD . Patient needs close follow-up with cardiology at [facility]. Transfer to [facility] when bed available.
--- NOTE | 2018-03-03 14:45 | CP.PCM.PN ---
Subjective - Date & Time of Evaluation Date of Evaluation: 03/03/18 Time of Evaluation: 14:44 - Subjective Subjective: Nephrology Consultation Note: Assessment: Stable Fall, Rt hip fracture Diabetic chronic Kidney Disease (E11.22) Hypertensive Chronic Kidney Disease (I12.0) End stage renal disease (N18.6) dependence on hemodialysis (Z99.2) (MWF) via PC Anemia (D64.9), Hyperphosphatemia (E83.39), Secondary Hyperparathyroidism (E21.1), HTN (I12.0) CAD s/p stent , sCHF s/p AICD, developmental delay Plan: for dialysis as per MWF schedule. Continue with Nephrovite 1 tab/day. PRBC as needed for anemia. not on KRYSTAL with dialysis as last Hb 12.6 Continue with phos binders, last phos level 5.3. gave Rx for Auryxia 210 mg 2 tab TID with meals as outpt BP control with meds as ordered. Patient not on RAAS allyn as BP low Glycemic control, Dialysis consistent diet Further work up/management as per primary team Dose meds/antibiotics (if needed) for ESRD status. Avoid fleets enema/magnesium based laxatives. orthopedic following. pt for transfer to [facility] Thanks for allowing me to participate in care of your patient. Will follow karissa ent with you. Please call if any Qs. d/w direct care counselor and team Dr Jassi Epsitia Office: [phone] Chief Complaint;fall HPI: Pt is a 62 M with hx of ESRD on hemodialysis (MWF) via PC @ [place] [facility] , last dialysis yesterday, chronic anemia, hyperphosphatemia, secondary hyperparathyroidism, Diabetes Mellitus, hypertension CAD s/p stent , sCHF s/p AICD, developmental delay presented with complaints of fall and Rt hip fracture. Renal consult requested for ESRD management. besides Rt hip pain, pt feels in usual health he lives in a halfway ROS: Cardiovascular: No chest pain. Pulmonary: No shortness of breath Gastrointestinal: denies abdominal pain No nausea. No vomiting. Genitourinary: No pain while urinating. Denies blood in urine. All other negative except as mentioned in HPI Physical Examination: General Appearance: Comfortable, in no acute respiratory distress, co-operative . Vitals reviewed and noted as below Head; Atraumatic, normocephalic ENT: no ulcers no thrush. Tongue is midline. Oropharynx: no rash or ulcers. EYES: Pupils are equal, round and reactive to light accommodation. Eye muscles and extraocular movement intact. Sclera is anicteric. Neck; supple no lymphadenopathy, no thyromegaly or bruit Lungs: Normal respiratory rate/effort. Breath sounds bilateral equal and clear Heart: Normal rate. s1s2 normal. No rub or gallop. Extremities: no edema. No varicose veins Neurological: Patient is alert, awake and oriented to person, place and time. No focal deficit. Strength bilateral appropriate and equal Skin: Warm and dry. Normal turgor. No rash. Palpitation: Normal elasticity for age Abdomen: Abdomen is soft. Bowel sounds +. There is no abdominal tenderness, no guarding/rigidity or organomegaly Psych: limited insight and normal affect/mood MSK: no joint tenderness or swelling. Digits and nails normal, no deformity : kidney or bladder not palpable Access: PC Labs/imaging reviewed. Past medical history, past surgical history, family history, social history, allergy reviewed and noted as below Family Hx: no hx of CKD. Non contributory Objective - Vital Signs/Intake and Output Vital Signs (last 24 hours): Temp Pulse Resp BP Pulse Ox 98 F 78 18 100/64 97 03/03/18 06:00 03/03/18 06:00 03/03/18 06:00 03/03/18 06:00 03/03/18 06:00 Intake and Output: 03/03/18 03/03/18 06:59 18:59 Intake Total 120 Output Total 400 Balance -280 - Medications Medications: Current Medications Albumin Human (Albumin Human 25% (12.5 Gm/50 Ml)) 25 gm IV MWF PRN PRN Reason: Other Aspirin (Ecotrin) 81 mg PO DAILY [facility] Last Admin: 03/02/18 10:52 Dose: 81 mg Atorvastatin Calcium (Lipitor) 20 mg PO DAILY [facility] Last Admin: 03/02/18 10:49 Dose: 20 mg Carvedilol (Coreg) 3.125 mg PO BID [facility] Last Admin: 03/02/18 17:17 Dose: 3.125 mg Famotidine (Pepcid) 20 mg PO HS [facility] Last Admin: 03/02/18 21:32 Dose: 20 mg Levothyroxine Sodium (Synthroid) 100 mcg PO DAILY [facility] Last Admin: 03/02/18 10:49 Dose: 100 mcg Febuxostat [Uloric] (40 Mg (Home Med)) 40 mg PO DAILY [facility] Last Admin: 03/02/18 10:52 Dose: Not Given Sevelamer HCl (Renagel) 800 mg PO TID [facility] Last Admin: 03/02/18 17:18 Dose: Not Given Tamsulosin HCl (Flomax) 0.4 mg PO DAILY [facility] Last Admin: 03/02/18 10:48 Dose: 0.4 mg Tramadol HCl (Ultram) 50 mg PO Q6 PRN PRN Reason: Pain, severe (8-10) Last Admin: 03/02/18 13:30 Dose: 50 mg Vitamin B Complex/Vit C/Folic Acid (Nephro-Mali) 1 tab PO 0800 [facility] Last Admin: 03/02/18 08:45 Dose: 1 tab - Labs Labs: 03/03/18 07:00 03/03/18 07:00 PT 12.3 SECONDS (9.4-12.5) 02/27/18 18:43 INR 1.08 02/27/18 18:43 APTT 29.3 Seconds (25.1-36.5) 02/27/18 18:43
[2018-03-03 15:12] VITALS: BP 90/65; PULSE 98; TEMP 97.6; O2SAT 96
== END 2018-03-03 22:30 | disposition short-term general hospital (02) | DRG 236 ==
LOC: ED 09:06 → ERH 16:40 → 5RSO 19:27
PROVIDERS: ADMIT Internal Medicine; ATTEND Internal Medicine
PROC: 5A1D70Z Performance of Urinary Filtration, Intermittent, Less than 6 Hours Per Day (ICD-10-PCS; principal; 2018-03-01)
PROC: 5A1D70Z Performance of Urinary Filtration, Intermittent, Less than 6 Hours Per Day (ICD-10-PCS; 2018-03-03)
DX: S72.011A Unspecified intracapsular fracture of right femur, initial encounter for closed fracture (principal); I13.2 Hypertensive heart and chronic kidney disease with heart failure and with stage 5 chronic kidney disease, or end stage renal disease; N18.6 End stage renal disease; I50.9 Heart failure, unspecified; E11.22 Type 2 diabetes mellitus with diabetic chronic kidney disease; I42.0 Dilated cardiomyopathy; I25.118 Atherosclerotic heart disease of native coronary artery with other forms of angina pectoris; J44.9 Chronic obstructive pulmonary disease, unspecified; N25.81 Secondary hyperparathyroidism of renal origin; E78.00 Pure hypercholesterolemia, unspecified; E03.9 Hypothyroidism, unspecified; I87.2 Venous insufficiency (chronic) (peripheral); N40.0 Benign prostatic hyperplasia without lower urinary tract symptoms; F79 Unspecified intellectual disabilities; D64.9 Anemia, unspecified; W01.0XXA Fall on same level from slipping, tripping and stumbling without subsequent striking against object, initial encounter; Y92.89 Other specified places as the place of occurrence of the external cause; Z99.2 Dependence on renal dialysis; Z79.4 Long term (current) use of insulin; Z95.810 Presence of automatic (implantable) cardiac defibrillator; Z95.5 Presence of coronary angioplasty implant and graft; Z79.02 Long term (current) use of antithrombotics/antiplatelets; Z79.82 Long term (current) use of aspirin

== ENCOUNTER 2018-03-13 13:31 | Emergency (ER) | payer MEDICAID ==
[2018-03-13 13:40] VITALS: BMI 25.5
[2018-03-13 13:49] VITALS: RESP 18; TEMP 97.6
--- NOTE | 2018-03-13 14:10 | ED PDOC ---
Arrival/HPI - General Chief Complaint: Hip Pain Historian: Patient - History of Present Illness Narrative History of Present Illness (Text): 03/13/18 13:35 62 year old male, whose past medical history includes CHF s/p pacemaker/ AICD, ESRD, hypertension, developmental delay, goes to dialysis(M/W/F),, brought into the Emergency department by ambulance complaining of right sided hip pain ongoing for the past 2 weeks. Patient states he is able to ambulate with assistance, but was unable to go to dialysis this morning. He denies taking any medication this morn for pain. Patient denies any other complaints. Of note, the was recently admitted on 02/27/2018 for a subcapital femoral neck fracture that was managed conservatively and transferred to another hospital for surgical intervention PMD: Dr. Ortiz Time/Duration: > week (patient notes right sided hip pain for x2 weeks ago ) Symptom Onset: Sudden Symptom Course: Unchanged Activities at Onset: Rest Context: Home Past Medical History - Provider Review Nursing Documentation Reviewed: Yes - Travel History Have you recently traveled outside [place] w/in the past 3 mons?: No - Past History Past History: No Previous - Infectious Disease Hx of Infectious Diseases: None - Tetanus Immunization Tetanus Immunization: Unknown - Cardiac Hx Cardiac Disorders: Yes (cardiac cath, coronary stent, pacemake w/ internal defibrillator) Hx Congestive Heart Failure: Yes Hx Hypertension: Yes (& hypotension) - Pulmonary Hx Respiratory Disorders: Yes Hx Chronic Obstructive Pulmonary Disease (COPD): Yes - Neurological Hx Neurological Disorder: Yes (mental retardation, develommental delay) - HEENT Hx HEENT Disorder: No - Renal Hx Renal Disorder: Yes Hx Dialysis: Yes ([facility] just started had 4 tx's) Date of Last Dialysis Treatment: 12/13/17 Hx Renal Failure: Yes - Endocrine/Metabolic Hx Endocrine Disorders: Yes Hx Diabetes Mellitus Type 2: Yes Hx Hypothyroidism: Yes - Hematological/Oncological Hx Blood Disorders: Yes (hyperkalemia) - Integumentary Hx Dermatological Disorder: Yes Other/Comment: chronic venous stasis b/l shins, ble skin discolorations and scarring, dry thick toenails both feet, discolored dry brown red skin ble and feet,multiple moles to back, questionable old patterson to ankles, pt unsure, 3 round red areas of skin to right knee, bruising to rac and lac - Musculoskeletal/Rheumatological Hx Musculoskeletal Disorders: Yes Hx Falls: Yes (fell today 02-25-18) - Gastrointestinal Hx Gastrointestinal Disorders: Yes (protruding umbilical hernia) - Genitourinary/Gynecological Hx Genitourinary Disorders: Yes Hx Prostate Problems: Yes (bph) - Psychiatric Hx Psychophysiologic Disorder: Yes Hx Substance Use: No Other/Comment: Developmental delay. - Surgical History Hx Cardiac Catheterization: Yes Hx Coronary Stent: Yes Other/Comment: cardiac cath, pacemaker with internal defribilator, rcw hd cath - Anesthesia Hx Anesthesia: Yes Hx Anesthesia Reactions: No Hx Malignant Hyperthermia: No - Suicidal Assessment Feels Threatened In Home Enviroment: No Family/Social History - Physician Review Nursing Documentation Reviewed: Yes Family/Social History: No Known Family HX Smoking Status: Never Smoked Hx Alcohol Use: No Hx Substance Use: No Hx Substance Use Treatment: No Allergies/Home Meds Allergies/Adverse Reactions: Allergies No Known Allergies Allergy (Verified 02/27/18 18:07) Home Medications: Home Meds Medication Instructions Recorded Confirmed RX: Aspirin [Ecotrin] 81 mg PO DAILY 12/15/17 02/27/18 RX: Atorvastatin [Lipitor] 20 mg PO DAILY 12/15/17 02/27/18 RX: Clopidogrel [Plavix] 75 mg PO DAILY 12/15/17 02/27/18 RX: Febuxostat [Uloric] 40 mg PO DAILY 12/15/17 02/27/18 RX: Tamsulosin [Flomax] 0.4 mg PO DAILY 12/15/17 02/27/18 RX: Carvedilol [Coreg] 6.25 mg PO BID 03/02/18 03/02/18 RX: Ferric Citrate [Auryxia] 210 mg PO AC 03/02/18 03/02/18 RX: Insulin Lispro [Admelog 100 unit SQ AC 03/02/18 03/02/18 Solostar] RX: Levothyroxine [Synthroid] 125 mcg PO DAILY 03/02/18 03/02/18 RX: Losartan [Cozaar] 25 mg PO MWF 03/02/18 03/02/18 RX: glyBURIDE [Micronase] 2.5 mg PO DAILY 03/02/18 03/02/18 Review of Systems - Physician Review All systems were reviewed & negative as marked: Yes - Review of Systems Musculoskeletal: Other (Pt notes right-sided hip pain for x2 weeks). absent: Normal Neurological: Gait Changes (Pt states he is able to ambulate with assistance and weight bear). absent: Normal Physical Exam Vital Signs Reviewed: Yes Vital Signs Temp Pulse Resp BP Pulse Ox 03/13/18 13:45 97.6 F 86 18 119/85 98 Temperature: Afebrile Blood Pressure: Normal Pulse: Regular Respiratory Rate: Normal Appearance: Positive for: Well-Appearing, Non-Toxic Pain Distress: Mild Mental Status: Positive for: Alert and Oriented X 3 - Systems Exam Head: Present: Atraumatic, Normocephalic Pupils: Present: PERRL Extroacular Muscles: Present: EOMI Conjunctiva: Present: Normal Mouth: Present: Moist Mucous Membranes Neck: Present: Normal Range of Motion Respiratory/Chest: Present: Clear to Auscultation, Good Air Exchange. No: Respiratory Distress, Accessory Muscle Use Cardiovascular: Present: Regular Rate and Rhythm, Normal S1, S2. No: Murmurs Abdomen: No: Tenderness, Distention, Peritoneal Signs Back: Present: Normal Inspection Upper Extremity: Present: Normal Inspection. No: Cyanosis, Edema Lower Extremity: Present: Normal Inspection. No: Edema Neurological: Present: GCS=15, CN II-XII Intact, Speech Normal Skin: Present: Warm, Dry, Normal Color. No: Rashes Psychiatric: Present: Alert, Oriented x 3, Normal Insight, Normal Concentration Medical Decision Making ED Course and Treatment: 03/13/18 13:35 Impression: 62 year old male who was brought into the Emergency department by ambulance complaining of right sided hip pain x2 weeks ago. Differential Diagnosis included but are not limited to: --Sepsis --Orthostatic Hypotension Plan: -- Labs -- X-Ray of chest --Nephrology consult -- Reassess and disposition Prior Visits: Notes and results from previous visits were reviewed. Patient was last seen in the emergency department on 02/27/18 for complaint of right hip pain. Pt was hos pitalized in fair condition and transferred to another hospital. Progress Notes: 03/13/18 14:59 Labs reviewed and no elevations in potassium nor other electrolytes noted. VSS. Discussed case with Dr. Espitia(nephrology) who states patient may be discharged so he may complete outpatient dialysis and will communicate with his dialysis nurse. Spoke to dialysis nurse who is aware of patient and awaits his arrival. Patient updated on plan and demonstrates understanding. He is stable for discharge. - RAD Interpretation Narrative RAD Interpretations (Text): X-Ray of chest reviewed by radiologist, shows: Dictated by: Everardo Chen MD Dictated Date/Time: 03/13/18 14:46 Impression: No active disease. Radiology Orders: 03/13/18 13:43 CHEST PORTABLE [RAD] Stat Talkback Host: Radiologist - EKG Interpretation EKG Interpretation (Text): 03/13/18 13:47 EKG: Ordered, reviewed, and independently interpreted the EKG. Interpretation: Paced at 92 BPM Interpreted by ED Physician: Yes Type: 12 lead EKG - Scribe Statement The provider has reviewed the documentation as recorded by the Scribe Breana Melo All medical record entries made by the Scribe were at my direction and personally dictated by me. I have reviewed the chart and agree that the record accurately reflects my personal performance of the history, physical exam, medical decision making, and the department course for this patient. I have also personally directed, reviewed, and agree with the discharge instructions and disposition. Disposition/Present on Arrival - Present on Arrival Any Indicators Present on Arrival: No History of DVT/PE: No History of Uncontrolled Diabetes: No Urinary Catheter: No History of Decub. Ulcer: No History Surgical Site Infection Following: None - Disposition Have Diagnosis and Disposition been Completed?: Yes Diagnosis: Encounter for dialysis, Leukocytosis Disposition: HOME/ ROUTINE Disposition Time: 15:00 Patient Plan: Discharge Condition: STABLE Discharge Instructions (ExitCare): Peritoneal Dialysis Diet, Neutropenia (DC) Print Language: MALTESE Additional Instructions: All medical record entries made by the Scribe were at my direction and personally dictated by me. I have reviewed the chart and agree that the record accurately reflects my personal performance of the history, physical exam, medical decision making, and the department course for this patient. I have also personally directed, reviewed, and agree with the discharge instructions and disposition. Referrals: Luly Ortiz MD [Primary Care Provider] - Follow up with primary Forms: [employer] ([place])
[2018-03-13 14:16] LABS: BASO # 0.08 K/mm3 (0.0-2.0); BASO % 0.6 % (0.0-3.0); EOS # 0.9 (0.0-0.7); EOS % 6.6 % (1.5-5.0); GRAN # 9.85 (1.4-6.5); GRAN % 74.8 % (50.0-68.0); HEMOGLOBIN 14.1 g/dL (14.0-18.0); LYMPH # 1.5 (1.2-3.4); LYMPH % 11.6 % (22.0-35.0); MEAN CELL VOLUME 93.2 fl (80.0-105.0); MEAN CORPUSCULAR HGB CONC 33.3 g/dl (31.0-37.0); MEAN PLATELET VOLUME 11.1 fl (7.0-11.0); MONO # 0.8 (0.1-0.6); MONO % 6.4 % (1.0-6.0); RBC 4.55 10^6/uL (3.5-6.1); RED CELL DISTRIBUTION WIDTH 13.9 % (11.5-14.5); WHITE BLOOD COUNT 13.2 10^3/uL (4.5-11.0)
[2018-03-13 14:25] LABS: ALB/GLOB RATIO 1.1 (1.1-1.8); ALBUMIN 4.3 g/dL (3.0-4.8); CALCIUM 9.8 mg/dL (8.4-10.5)
[2018-03-13 14:30] LABS: INR 0.97
--- NOTE | 2018-03-13 14:50 | RAD ---
Date of service: 03/13/2018 HISTORY: sob COMPARISON: 02/27/2018 FINDINGS: LUNGS: No active pulmonary disease. PLEURA: No significant pleural effusion identified, no pneumothorax apparent. CARDIOVASCULAR: No aortic atherosclerotic calcification present. Moderate cardiomegaly no pulmonary vascular congestion. OSSEOUS STRUCTURES: No significant abnormalities. VISUALIZED UPPER ABDOMEN: Normal. OTHER FINDINGS: Pacemaker and right dialysis catheter IMPRESSION: No active disease.
[2018-03-13 15:13] VITALS: BP 121/75; PULSE 80; O2SAT 99
--- NOTE | 2018-03-14 01:10 | CARD ---
APPROVED REPORT Date of service: 03/13/2018 EKG Measurement Heart [id number] <Conclusion> Ventricular paced rhythm with premature ventricular complexes Possible Lateral infarct, age undetermined Abnormal ECG
== END 2018-03-13 15:15 | disposition home or self-care (01) ==
LOC: ED 13:31
DX: D72.829 Elevated white blood cell count, unspecified (principal); I13.2 Hypertensive heart and chronic kidney disease with heart failure and with stage 5 chronic kidney disease, or end stage renal disease; E11.22 Type 2 diabetes mellitus with diabetic chronic kidney disease; N18.6 End stage renal disease; Z99.2 Dependence on renal dialysis; Z95.0 Presence of cardiac pacemaker; Z95.5 Presence of coronary angioplasty implant and graft

== ENCOUNTER 2018-06-19 19:36 | Inpatient (IN) | payer MEDICAID ==
[2018-06-19 19:37] VITALS: BMI 25.5
--- NOTE | 2018-06-19 20:42 | ED PDOC ---
Arrival/HPI - General Chief Complaint: Altered Mental Status Time Seen by Provider: 06/19/18 19:41 Historian: Patient, Caregiver - History of Present Illness Narrative History of Present Illness (Text): 06/19/18 20:42 62 year old male, whose past medical history includes a developmental delay, CHF s/p ICD placement, CAD s/p PCI, CKD stage 4 on hemodialysis, hypertension, hypothyroidism, DM type 2, and BPH, presents to the emergency department for evaluation s/p syncopal episode. Patient's aerial advertiser informs she witnessed episode which lasted about 1 minute. Aircraft Structural Fitter states she noted patient's eyes rolling back. Patient denies any history of urinary incontinence or tongue biting. Patient states he does not recollect what happened, but states he feels fine now. Patient denies any headache, chest pain, shortness of breath, abdominal pain, nausea, vomiting, or any other complaints. Patient informs he had his regularly scheduled hemodialysis today. PMD: Dr. Ortiz Vascular surgeon: Dr. Philippe Time/Duration: Prior to Arrival Symptom Onset: Sudden Symptom Course: Resolved Activities at Onset: Light Context: Home (Assisted Living) Past Medical History - Provider Review Nursing Documentation Reviewed: Yes - Past History Past History: No Previous - Infectious Disease Hx of Infectious Diseases: None - Tetanus Immunization Tetanus Immunization: Unknown - Cardiac Hx Cardiac Disorders: Yes (cardiac cath, coronary stent, pacemake w/ internal defibrillator) Hx Congestive Heart Failure: Yes Hx Hypertension: Yes (& hypotension) - Pulmonary Hx Respiratory Disorders: Yes Hx Chronic Obstructive Pulmonary Disease (COPD): Yes - Neurological Hx Neurological Disorder: Yes (mental retardation, develommental delay) - HEENT Hx HEENT Disorder: No - Renal Hx Renal Disorder: Yes Hx Dialysis: Yes (mwf) Type of Dialysis Access: R udall Hx Renal Failure: Yes - Endocrine/Metabolic Hx Endocrine Disorders: Yes Hx Diabetes Mellitus Type 2: Yes Hx Hypothyroidism: Yes - Hematological/Oncological Hx Blood Disorders: Yes (hyperkalemia) - Integumentary Hx Dermatological Disorder: Yes Other/Comment: chronic venous stasis b/l shins, ble skin discolorations and scarring, dry thick toenails both feet, discolored dry brown red skin ble and feet,multiple moles to back, questionable old patterson to ankles - Musculoskeletal/Rheumatological Hx Musculoskeletal Disorders: Yes Hx Falls: Yes - Gastrointestinal Hx Gastrointestinal Disorders: Yes (protruding umbilical hernia) - Genitourinary/Gynecological Hx Genitourinary Disorders: Yes Hx Prostate Problems: Yes (bph) - Psychiatric Hx Psychophysiologic Disorder: Yes Hx Substance Use: No Other/Comment: Developmental delay. - Surgical History Hx Cardiac Catheterization: Yes Hx Coronary Stent: Yes Other/Comment: cardiac cath, pacemaker with internal defribilator, rcw hd cath - Anesthesia Hx Anesthesia: Yes Hx Anesthesia Reactions: No Hx Malignant Hyperthermia: No - Suicidal Assessment Feels Threatened In Home Enviroment: No Family/Social History - Physician Review Nursing Documentation Reviewed: Yes Family/Social History: No Known Family HX Smoking Status: Never Smoked Hx Alcohol Use: No Hx Substance Use: No Hx Substance Use Treatment: No Allergies/Home Meds Allergies/Adverse Reactions: Allergies No Known Allergies Allergy (Verified 02/27/18 18:07) Home Medications: Home Meds Medication Instructions Recorded Confirmed Atorvastatin [Lipitor] 40 mg PO DAILY 12/15/17 06/19/18 Clopidogrel [Plavix] 75 mg PO DAILY 12/15/17 06/19/18 Ferric Citrate [Auryxia] 2 tab PO TID 03/02/18 06/19/18 Levothyroxine [Synthroid] 125 mcg PO DAILY 03/02/18 06/19/18 Losartan [Cozaar] 25 mg PO TTS 03/02/18 06/19/18 Ammonium Lactate 12% [Lac-Hydrin] 1 g TP BID 06/19/18 06/19/18 Carvedilol [Coreg] 3.125 mg PO Q12 06/19/18 06/19/18 Cinacalcet [Sensipar] 30 mg PO DAILY 06/19/18 06/19/18 Glimepiride [amaRYL] 2 mg PO Q12 06/19/18 06/19/18 traMADol [Ultram] 50 mg PO Q12 PRN 06/19/18 06/19/18 Review of Systems - Physician Review All systems were reviewed & negative as marked: Yes - Review of Systems Respiratory: absent: SOB Cardiovascular: Syncope. absent: Chest Pain Gastrointestinal: absent: Abdominal Pain, Nausea, Vomiting Neurological: absent: Headache Physical Exam Vital Signs Reviewed: Yes Vital Signs Temp Pulse Resp BP Pulse Ox 06/19/18 19:37 98.3 F 114 H 18 111/72 96 Temperature: Afebrile Blood Pressure: Normal Pulse: Tachycardic Respiratory Rate: Normal Appearance: Positive for: Well-Appearing, Non-Toxic, Comfortable Pain Distress: None Mental Status: Positive for: Alert and Oriented X 3 Finger Stick Blood Glucose: 210 - Systems Exam Head: Present: Atraumatic, Normocephalic Pupils: Present: PERRL Extroacular Muscles: Present: EOMI Conjunctiva: Present: Normal Mouth: Present: Moist Mucous Membranes Neck: Present: Normal Range of Motion Respiratory/Chest: Present: Clear to Auscultation, Good Air Exchange. No: Respiratory Distress, Accessory Muscle Use Cardiovascular: Present: Regular Rate and Rhythm, Normal S1, S2. No: Murmurs Abdomen: No: Tenderness, Distention, Peritoneal Signs Back: Present: Normal Inspection Upper Extremity: Present: Normal Inspection. No: Cyanosis, Edema Lower Extremity: Present: Normal Inspection. No: Edema Neurological: Present: GCS=15, CN II-XII Intact, Speech Normal Skin: Present: Warm, Dry, Normal Color. No: Rashes Psychiatric: Present: Alert, Oriented x 3, Normal Insight, Normal Concentration Medical Decision Making ED Course and Treatment: 06/19/18 21:03 Impression: 62 year old male presents for evaluation s/p syncopal episode. Plan: -- CT Head -- EKG -- Cardiac Iso, CMP -- CBC, Platelets -- Chest X-ray -- Reassess and disposition Prior Visits: Notes and results from previous visits were reviewed. Progress Notes: 06/19/18 21:23 EKG reviewed by me, shows: Tachycardia @ 112bpm Nonspecific IVCB Lateral Infarct 06/19/18 21:54 CT Head without Intravenous Contrast. CLINICAL HISTORY: Syncope TECHNIQUE: Axial computed tomography images of the head/brain without intravenous contrast. 917.87 mGy-cm COMPARISON: None provided. FINDINGS: BRAIN Mild chronic periventricular and subcortical microvascular disease is seen. 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 VENTRICLES: There is generalized parenchymal atrophy noted as demonstrated by symmetrical dilatation of ventricles and sulci. ORBITS: The orbits are unremarkable. SINUSES AND MASTOIDS: The paranasal sinuses and mastoid air cells are clear. BONES: No fracture. SOFT TISSUES: Unremarkable. MISCELLANEOUS: No acute intracranial pathology. IMPRESSION: 1. There is generalized parenchymal atrophy noted as demonstrated by symmetrical dilatation of ventricles and sulci. 2. Mild chronic periventricular and subcortical microvascular disease is seen. 3. 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 4. No acute intracranial pathology. 06/19/18 23:13 Case discussed with medical record librarian and Dr Mesa who accepts patient to the hospitalist service. - RAD Interpretation Radiology Orders: 06/19/18 20:00 HEAD W/O CONTRAST [CT] Stat CHEST PORTABLE [RAD] Stat - Scribe Statement The provider has reviewed the documentation as recorded by the Arden Barber Provider Scribe Attestation: All medical record entries made by the Robertoibe were at my direction and personally dictated by me. I have reviewed the chart and agree that the record accurately reflects my personal performance of the history, physical exam, medical decision making, and the department course for this patient. I have also personally directed, reviewed, and agree with the discharge instructions and disposition. Disposition/Present on Arrival - Present on Arrival Any Indicators Present on Arrival: No History of DVT/PE: No History of Uncontrolled Diabetes: No Urinary Catheter: No History of Decub. Ulcer: No History Surgical Site Infection Following: None - Disposition Have Diagnosis and Disposition been Completed?: Yes Diagnosis: Syncope Disposition: HOSPITALIZED Disposition Time: 22:40 Patient Problems: Current Active Problems Problem Status Onset Syncope Acute Condition: STABLE Discharge Instructions (ExitCare): Syncope (ED) Forms: [employer] ([place])
[2018-06-19 21:04] LABS: HEMOGLOBIN 12.9 g/dL (14.0-18.0); MEAN CELL VOLUME 95.2 fl (80.0-105.0); MEAN CORPUSCULAR HEMOGLOBIN 31.1 pg (25.0-35.0); MEAN CORPUSCULAR HGB CONC 32.7 g/dl (31.0-37.0); MEAN PLATELET VOLUME 10.4 fl (7.0-11.0); RBC 4.15 10^6/uL (3.5-6.1); RED CELL DISTRIBUTION WIDTH 13.8 % (11.5-14.5); WHITE BLOOD COUNT 12.8 10^3/uL (4.5-11.0)
[2018-06-19 21:07] LABS: ALB/GLOB RATIO 0.9 (1.1-1.8); CALCIUM 9.2 mg/dL (8.4-10.5)
[2018-06-19 21:09] LABS: INR 1.14; PARTIAL THROMBOPLASTIN TIME 34.3 Seconds (26.9-38.3); PROTHROMBIN TIME 12.6 SECONDS (9.4-12.5)
[2018-06-19 21:19] LABS: TROPONIN I 0.07 ng/mL
--- NOTE | 2018-06-20 00:05 | CP.PCM.HP ---
<NasreentristanGustavo - Last Filed: 06/20/18 06:24> History of Present Illness - History of Present Illness History of Present Illness: PGY-1 History and Physical [address] Mesa Patient is a 62 year old male with PMHx CHF s/p AICD with EF 20%, ESRD on HD MWF, CAD s/p PCI, developmental delay, who presents to ED following a witnessed syncopal episode. Patient was noted by home health aid to have syncopal episode - per patient, his manager client Helga noticed patient to have episode where he was sitting on his couch watching TV and his eyes rolled backwards which lasted about 30 seconds. Patient has no recollection of syncopizing and does not recall losing consciousness, denies any memory loss. He denies ever experiencing any dizziness, lightheadedness, vision changes/blurry vision, focal weakness, numbness or tingling. Per patient, AICD did not deliver a shock. Patient had dialysis earlier in the afternoon from 11-3 and was assymptomatic directly after dialysis. Syncopal episode occurred around 7pm. Patient does state it is normal for him to feel fatigued or weak following HD sessions, but denies ever syncopizing in the past. PMH: CHF s/p AICD with EF 34%, CKD (recently started on HD), CAD s/p PCI, DM2, HTN, hypothyroidism, BPH and developmental delay PSH: HD Port, AICD, PCI Family Hx: Denies Social Hx Denies any tobacco, alcohol or illicit drug use; Patient states he lives in an apartment with SERVICE TECHNICIAN who comes daily in the afternoons. Home Medications: Reviewed and meds updated as per MAY PMD: Dr. Ortiz Deburring Technician: Dr. Helms Present on Admission - Present on Admission Any Indicators Present on Admission: No Review of Systems - Constitutional Constitutional: absent: Chills, Fever, Weight Loss, Weakness - EENT Eyes: absent: Blurred Vision, Change in Vision, Photophobia Ears: absent: Dizziness Nose/Mouth/Throat: absent: Nasal Congestion, Nasal Discharge - Cardiovascular Cardiovascular: Syncope (Reported syncopal episode, which patient does not recall). absent: Chest Pain, Chest Pain at Rest, Palpitations - Respiratory Respiratory: absent: Cough, Wheezing - Gastrointestinal Gastrointestinal: absent: Abdominal Pain, Diarrhea, Nausea, Vomiting - Genitourinary Genitourinary: absent: Change in Urinary Stream, Dysuria, Flank Pain, Urinary Frequency Additional comments: Pt does make urine - Musculoskeletal Musculoskeletal: absent: Back Pain, Neck Pain, Stiffness - Neurological Neurological: Memory Loss (Pt does not recall syncopal incident, but denies any other memory loss), Syncope. absent: Behavioral Changes, Confusion, Dizziness, Focal Weakness, Headaches, Loss of Vision, Paresthesias, Weakness - Psychiatric Psychiatric: absent: Anxiety, Depression Past Patient History - Infectious Disease Hx of Infectious Diseases: None - Tetanus Immunizations Tetanus Immunization: Unknown - Past Medical History & Family History Past Medical History?: Yes - Past Social History Smoking Status: Never Smoked - CARDIAC Hx Cardiac Disorders: Yes (cardiac cath, coronary stent, pacemake w/ internal defibrillator) Hx Congestive Heart Failure: Yes Hx Hypertension: Yes (& hypotension) - PULMONARY Hx Respiratory Disorders: Yes Hx Chronic Obstructive Pulmonary Disease (COPD): Yes - NEUROLOGICAL Hx Neurological Disorder: Yes (mental retardation, develommental delay) - HEENT Hx HEENT Problems: No - RENAL Hx Chronic Kidney Disease: Yes Hx Dialysis: Yes (mwf) Type of Dialysis Access: R udall Hx Renal Failure: Yes - ENDOCRINE/METABOLIC Hx Endocrine Disorders: Yes Hx Diabetes Mellitus Type 2: Yes Hx Hypothyroidism: Yes - HEMATOLOGICAL/ONCOLOGICAL Hx Blood Disorders: Yes (hyperkalemia) - INTEGUMENTARY Hx Dermatological Problems: Yes Other/Comment: chronic venous stasis b/l shins, ble skin discolorations and scarring, dry thick toenails both feet, discolored dry brown red skin ble and feet,multiple moles to back, questionable old patterson to ankles - MUSCULOSKELETAL/RHEUMATOLOGICAL Hx Musculoskeletal Disorders: Yes Hx Falls: Yes - GASTROINTESTINAL Hx Gastrointestinal Disorders: Yes (protruding umbilical hernia) - GENITOURINARY/GYNECOLOGICAL Hx Genitourinary Disorders: Yes Hx Prostate Problems: Yes (bph) - PSYCHIATRIC Hx Psychophysiologic Disorder: Yes Hx Substance Use: No Other/Comment: Developmental delay. - SURGICAL HISTORY Hx Cardiac Catheterization: Yes Hx Coronary Stent: Yes Other/Comment: cardiac cath, pacemaker with internal defribilator, rcw hd cath - ANESTHESIA Hx Anesthesia: Yes Hx Anesthesia Reactions: No Hx Malignant Hyperthermia: No Meds Allergies/Adverse Reactions: Allergies Allergy/AdvReac Type Severity Reaction Status Date / Time No Known Allergies Allergy Verified 02/27/18 18:07 Physical Exam - Constitutional Appears: Non-toxic, No Acute Distress - Head Exam Head Exam: ATRAUMATIC - Eye Exam Eye Exam: EOMI, Normal appearance Pupil Exam: PERRL - ENT Exam ENT Exam: Mucous Membranes Moist - Respiratory Exam Respiratory Exam: Clear to Auscultation Bilateral, NORMAL BREATHING PATTERN. absent: Rhonchi, Wheezes - Cardiovascular Exam Cardiovascular Exam: REGULAR RHYTHM, +S1, +S2 Additional comments: R chest wall permacath in place, area around catheter appears clean, no induration, erythema, or exudates. Dressings c/d/i - GI/Abdominal Exam GI & Abdominal Exam: Normal Bowel Sounds, Soft. absent: Tenderness - Extremities Exam Extremities exam: Negative for: pedal edema, tenderness Additional comments: Chronic-appearing skin changes b/l. No numbness or tingling - Neurological Exam Neurological exam: Alert, CN II-XII Intact, Oriented x3 Additional comments: Muscle strength and sensation intact throughout - Psychiatric Exam Psychiatric exam: Normal Affect, Normal Mood - Skin Skin Exam: Dry, Intact, Warm Additional comments: Chronic-appearing skin changes of feet b/l Results - Vital Signs Recent Vital Signs: Last Vital Signs Temp 98.3 F 06/19/18 19:37 Pulse 97 H 06/19/18 22:54 Resp 18 06/19/18 22:54 BP 109/66 06/19/18 22:54 Pulse Ox 95 06/19/18 22:54 - Labs Result Diagrams: 06/19/18 20:30 06/19/18 20:30 Labs: Laboratory Results - last 24 hr 06/19/18 06/19/18 06/19/18 19:47 20:30 20:30 WBC RBC Hgb Hct MCV MCH MCHC RDW Plt Count MPV PT 12.6 H INR 1.14 APTT 34.3 Sodium 138 Potassium 4.2 Chloride 94 L Carbon Dioxide 33 Anion Gap 15 BUN 29 H Creatinine 3.9 H Est GFR ( Amer) 19 Est GFR (Non-Af Amer) 16 POC Glucose (mg/dL) 210 H Random Glucose 217 H Calcium 9.2 Total Bilirubin 0.7 AST 22 ALT 11 Alkaline Phosphatase 79 Lactate Dehydrogenase 567 Total Creatine Kinase 43 Troponin I 0.07 Total Protein 8.3 Albumin 4.0 Globulin 4.3 Albumin/Globulin Ratio 0.9 L 06/19/18 20:30 WBC 12.8 H RBC 4.15 Hgb 12.9 L Hct 39.5 L MCV 95.2 MCH 31.1 MCHC 32.7 RDW 13.8 Plt Count 250 MPV 10.4 PT INR APTT Sodium Potassium Chloride Carbon Dioxide Anion Gap BUN Creatinine Est GFR ( Amer) Est GFR (Non-Af Amer) POC Glucose (mg/dL) Random Glucose Calcium Total Bilirubin AST ALT Alkaline Phosphatase Lactate Dehydrogenase Total Creatine Kinase Troponin I Total Protein Albumin Globulin Albumin/Globulin Ratio Assessment & Plan - Assessment and Plan (Free Text) Assessment: Syncopal Episode - May be reaction to fluid shift during dialysis, rule-out arrhythmia vs medication side effect vs seizure -Assymptomatic at present -Monitor on tele -EKG sinus tach at 112 BPM, no ST or T change -Mild leukocytosis 12.8, suspect stress-reactive. Permacath site is clean, does not appear infected, patient afebrile. -Neurochecks q4 -Orthostatics -AICD did not discharge per patient -AICD interrogation Imaging CT head 06/19 1. There is generalized parenchymal atrophy noted as demonstrated by symmetrical dilatation of ventricles and sulci. 2. Mild chronic periventricular and subcortical microvascular disease is seen. 3. 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 4. No acute intracranial pathology CXR 06/19 - f/u read ESRD on HD MWF -Nephrology consulted, Dr. Helms - f/u -Continue HD MWF Meds -Senispar, Auryxia CHF s/p AICD -AICD did not discharge per patient -AICD interrogation Meds -Coreg, ASA CAD s/p PCI -MR cath in 2018 with EF 20% Meds -ASA, Lipitor, Plavix DM -ISS low dose -Accuchecks ACHS -Hypolglycemia protocol Hypothyroidism Meds -Synthroid Chronic Pain Meds -Tramadol 50 mg PO Q12 PPx -DVT: heparin 5000 U SC Q8 -Renal, carb consistent diet -HD MWF Assessment and plan d/w Dr. Moshe Johnson, PGY-1 <Arvind Mesa - Last Filed: 06/20/18 19:24> Results - Vital Signs Recent Vital Signs: Last Vital Signs Temp 98.1 F 06/20/18 17:59 Pulse 100 H 06/20/18 18:00 Resp 18 06/20/18 17:59 BP 91/61 L 06/20/18 17:59 Pulse Ox 96 06/20/18 17:59 - Labs Result Diagrams: 06/20/18 06:30 06/20/18 06:30 Labs: Laboratory Results - last 24 hr 06/19/18 06/19/18 06/19/18 19:47 20:30 20:30 WBC RBC Hgb Hct MCV MCH MCHC RDW Plt Count MPV Neut % (Auto) Lymph % (Auto) Bollinger % (Auto) Eos % (Auto) Baso % (Auto) Lymph # (Auto) Bollinger # (Auto) Eos # (Auto) Baso # (Auto) Absolute Neuts (auto) PT 12.6 H INR 1.14 APTT 34.3 Sodium 138 Potassium 4.2 Chloride 94 L Carbon Dioxide 33 Anion Gap 15 BUN 29 H Creatinine 3.9 H Est GFR ( Amer) 19 Est GFR (Non-Af Amer) 16 POC Glucose (mg/dL) 210 H Random Glucose 217 H Hemoglobin A1c Calcium 9.2 Phosphorus Magnesium Total Bilirubin 0.7 AST 22 ALT 11 Alkaline Phosphatase 79 Lactate Dehydrogenase 567 Total Creatine Kinase 43 Troponin I 0.07 Total Protein 8.3 Albumin 4.0 Globulin 4.3 Albumin/Globulin Ratio 0.9 L 06/19/18 06/20/18 06/20/18 20:30 06:30 06:30 WBC 12.8 H 11.1 H RBC 4.15 4.04 Hgb 12.9 L 12.3 L Hct 39.5 L 38.1 L MCV 95.2 94.3 MCH 31.1 30.4 MCHC 32.7 32.3 RDW 13.8 13.7 Plt Count 250 247 MPV 10.4 10.4 Neut % (Auto) 72.1 H Lymph % (Auto) 13.2 L Bollinger % (Auto) 11.1 H Eos % (Auto) 3.2 Baso % (Auto) 0.4 Lymph # (Auto) 1.5 Bollinger # (Auto) 1.2 H Eos # (Auto) 0.4 Baso # (Auto) 0.04 Absolute Neuts (auto) 8.02 H PT INR APTT Sodium 139 Potassium 3.7 Chloride 99 Carbon Dioxide 28 Anion Gap 16 BUN 33 H Creatinine 4.8 H Est GFR ( Amer) 15 Est GFR (Non-Af Amer) 12 POC Glucose (mg/dL) Random Glucose 69 L Hemoglobin A1c Calcium 8.9 Phosphorus 5.2 H Magnesium 1.9 Total Bilirubin 0.8 AST 17 D ALT 11 Alkaline Phosphatase 73 Lactate Dehydrogenase Total Creatine Kinase Troponin I Total Protein 7.7 Albumin 4.0 Globulin 3.7 Albumin/Globulin Ratio 1.1 06/20/18 06/20/18 06/20/18 07:30 08:20 11:59 WBC RBC Hgb Hct MCV MCH MCHC RDW Plt Count MPV Neut % (Auto) Lymph % (Auto) Bollinger % (Auto) Eos % (Auto) Baso % (Auto) Lymph # (Auto) Bollinger # (Auto) Eos # (Auto) Baso # (Auto) Absolute Neuts (auto) PT INR APTT Sodium Potassium Chloride Carbon Dioxide Anion Gap BUN Creatinine Est GFR ( Amer) Est GFR (Non-Af Amer) POC Glucose (mg/dL) 84 149 H Random Glucose Hemoglobin A1c 6.8 H Calcium Phosphorus Magnesium Total Bilirubin AST ALT Alkaline Phosphatase Lactate Dehydrogenase Total Creatine Kinase Troponin I Total Protein Albumin Globulin Albumin/Globulin Ratio 06/20/18 16:37 WBC RBC Hgb Hct MCV MCH MCHC RDW Plt Count MPV Neut % (Auto) Lymph % (Auto) Bollinger % (Auto) Eos % (Auto) Baso % (Auto) Lymph # (Auto) Bollinger # (Auto) Eos # (Auto) Baso # (Auto) Absolute Neuts (auto) PT INR APTT Sodium Potassium Chloride Carbon Dioxide Anion Gap BUN Creatinine Est GFR ( Amer) Est GFR (Non-Af Amer) POC Glucose (mg/dL) 133 H Random Glucose Hemoglobin A1c Calcium Phosphorus Magnesium Total Bilirubin AST ALT Alkaline Phosphatase Lactate Dehydrogenase Total Creatine Kinase Troponin I Total Protein Albumin Globulin Albumin/Globulin Ratio Attending/Attestation - Attestation I have personally seen and examined this patient.: Yes I have fully participated in the care of the patient.: Yes I have reviewed all pertinent clinical information: Yes Notes (Text): 06/20/18 19:22 Seen and [id number]. Discxussed with resident. Pt. doesn't recall event. ?? for near-syncope. Will observe on Telemetry. A&P as above.
[2018-06-20] MEDS ORDERED: Dextrose 50% SYRINGE Inj (50 ml) IV PRN (00:58)
[2018-06-20] MEDS: Levothyroxine 125 MCG TAB PO SCH (06:08)
[2018-06-20 07:14] LABS: BASO # 0.04 K/mm3 (0.0-2.0); BASO % 0.4 % (0.0-3.0); EOS # 0.4 (0.0-0.7); EOS % 3.2 % (1.5-5.0); HEMOGLOBIN 12.3 g/dL (14.0-18.0); LYMPH # 1.5 (1.2-3.4); LYMPH % 13.2 % (22.0-35.0); MEAN CELL VOLUME 94.3 fl (80.0-105.0); MEAN CORPUSCULAR HEMOGLOBIN 30.4 pg (25.0-35.0); MEAN CORPUSCULAR HGB CONC 32.3 g/dl (31.0-37.0); MEAN PLATELET VOLUME 10.4 fl (7.0-11.0); MONO # 1.2 (0.1-0.6); MONO % 11.1 % (1.0-6.0); RBC 4.04 10^6/uL (3.5-6.1); RED CELL DISTRIBUTION WIDTH 13.7 % (11.5-14.5); WHITE BLOOD COUNT 11.1 10^3/uL (4.5-11.0)
[2018-06-20 07:57] LABS: ALB/GLOB RATIO 1.1 (1.1-1.8); CALCIUM 8.9 mg/dL (8.4-10.5)
[2018-06-20] MEDS: Insulin Lispro (humaLOG) LOW Coverage SC SCH ×4 (08:10→22:53)
--- NOTE | 2018-06-20 08:22 | CT ---
Date of service: 06/19/2018 PROCEDURE: CT HEAD WITHOUT CONTRAST. HISTORY: syncope COMPARISON: 02/25/2018 TECHNIQUE: Axial computed tomography images were obtained through the head/brain without intravenous contrast. Radiation dose: Total exam DLP = 917.87 mGy-cm. This CT exam was performed using one or more of the following dose reduction techniques: Automated exposure control, adjustment of the mA and/or kV according to patient size, and/or use of iterative reconstruction technique. FINDINGS: HEMORRHAGE: No intracranial hemorrhage. BRAIN: No mass effect or edema. Chronic microvascular changes are seen in the periventricular white matter and basal ganglia bilaterally. There is a focal area of encephalomalacia in the left parietal lobe. There is cystic encephalomalacia in the right temporal lobe. VENTRICLES: Unremarkable. No hydrocephalus. CALVARIUM: Unremarkable. PARANASAL SINUSES: Unremarkable as visualized. No significant inflammatory changes. MASTOID AIR CELLS: Unremarkable as visualized. No inflammatory changes. OTHER FINDINGS: The report concurs with the preliminary [facility] report IMPRESSION: Chronic microvascular changes are seen in the periventricular white matter and basal ganglia bilaterally. There is a focal area of encephalomalacia in the left parietal lobe. There is cystic encephalomalacia in the right temporal lobe.
--- NOTE | 2018-06-20 09:50 | RAD ---
Date of service: 06/19/2018 HISTORY: syncope COMPARISON: 03/13/2018 TECHNIQUE: 1 view obtained. FINDINGS: LUNGS: No active pulmonary disease. PLEURA: No significant pleural effusion identified, no pneumothorax apparent. CARDIOVASCULAR: Aortic calcification Mild cardiomegaly no pulmonary vascular congestion. OSSEOUS STRUCTURES: No significant abnormalities. VISUALIZED UPPER ABDOMEN: Normal. OTHER FINDINGS: Pacemaker. Dialysis catheter unchanged IMPRESSION: No active disease.
[2018-06-20] MEDS: Ammonium Lactate 12% Cream (140 g) TOP SCH ×2 (10:03→17:27)
[2018-06-20] MEDS: FERRIC CITRATE PO SCH ×3 (10:18→17:06)
--- NOTE | 2018-06-20 11:13 | CP.PCM.CON ---
<Mick Garcia - Last Filed: 06/20/18 14:47> History of Present Illness - History of Present Illness History of Present Illness: Mick Gacria PGY2 Neurology Consult Note for Dr. Villatoro Consulted by: Dr. Mesa 62 year old male with PMHx CHF s/p AICD with EF 20%, ESRD on HD MWF, CAD s/p PCI, developmental delay, who presents to ED following a witnessed syncopal episode. Patient states he was sitting watching TV when he passed out around 7pm, he denied any darkness over eyes or any aura. Of note patient had dialysis session earlier in the afternoon from 11-3 and was asymptomatic directly after dialysis. Patient does state it is normal for him to feel weak following HD sessions, but has never had a syncopal episode before. He stated he had some LOC but denies hitting his head. Per eyewitness there was no seizure like activity, no limb jerking, tongue biting, loss of urination. Patient denied any palpitations or AICD shock. In addition he denies any dizziness, lightheadedness, vision changes/blurry vision, focal weakness, numbness or tingling. PMH: CHF s/p AICD with EF 34%, CKD (recently started on HD), CAD s/p PCI, DM2, HTN, hypothyroidism, BPH and developmental delay PSH: HD Port, AICD, PCI Family Hx: Denies Social Hx Denies any tobacco, alcohol or illicit drug use; Patient states he lives in an apartment with MOLD SHIFTER who comes daily in the afternoons. Home Medications: Reviewed and meds updated as per MAY PMD: Dr. Ortiz Supervisor [employer]: Dr. Helms Review of Systems - EENT Eyes: absent: Blurred Vision - Cardiovascular Cardiovascular: Syncope. absent: Chest Pain, Dyspnea, Palpitations, Radiating Pain, Rapid Heart Rate, Slow Heart Rate - Respiratory Respiratory: absent: Cough, Dyspnea - Musculoskeletal Musculoskeletal: absent: Limited Range of Motion, Numbness, Tingling - Neurological Neurological: Syncope. absent: Abnormal Hearing, Abnormal Movements, Abnormal Speech, Behavioral Changes, Burning Sensations, Confusion, Convulsions, Disequilibrium, Numbness, Focal Weakness, Loss of Vision, Paresthesias, Radicular Pain Past Patient History - Infectious Disease Hx of Infectious Diseases: None - Tetanus Immunizations Tetanus Immunization: Unknown - Past Medical History & Family History Past Medical History?: Yes - Past Social History Smoking Status: Never Smoked - CARDIAC Hx Cardiac Disorders: Yes (cardiac cath, coronary stent, pacemake w/ internal defibrillator) Hx Congestive Heart Failure: Yes Hx Hypertension: Yes (& hypotension) - PULMONARY Hx Respiratory Disorders: Yes Hx Chronic Obstructive Pulmonary Disease (COPD): Yes - NEUROLOGICAL Hx Neurological Disorder: Yes (mental retardation, develommental delay) - HEENT Hx HEENT Problems: No - RENAL Hx Chronic Kidney Disease: Yes Hx Dialysis: Yes (mwf) Type of Dialysis Access: R udall Hx Renal Failure: Yes - ENDOCRINE/METABOLIC Hx Endocrine Disorders: Yes Hx Diabetes Mellitus Type 2: Yes Hx Hypothyroidism: Yes - HEMATOLOGICAL/ONCOLOGICAL Hx Blood Disorders: Yes (hyperkalemia) - INTEGUMENTARY Hx Dermatological Problems: Yes Other/Comment: chronic venous stasis b/l shins, ble skin discolorations and scarring, dry thick toenails both feet, discolored dry brown red skin ble and feet,multiple moles to back, questionable old patterson to ankles - MUSCULOSKELETAL/RHEUMATOLOGICAL Hx Musculoskeletal Disorders: Yes Hx Falls: Yes - GASTROINTESTINAL Hx Gastrointestinal Disorders: Yes (protruding umbilical hernia) - GENITOURINARY/GYNECOLOGICAL Hx Genitourinary Disorders: Yes Hx Prostate Problems: Yes (bph) - PSYCHIATRIC Hx Psychophysiologic Disorder: Yes Hx Substance Use: No Other/Comment: Developmental delay. - SURGICAL HISTORY Hx Cardiac Catheterization: Yes Hx Coronary Stent: Yes Other/Comment: cardiac cath, pacemaker with internal defribilator, rcw hd cath - ANESTHESIA Hx Anesthesia: Yes Hx Anesthesia Reactions: No Hx Malignant Hyperthermia: No Meds Allergies/Adverse Reactions: Allergies Allergy/AdvReac Type Severity Reaction Status Date / Time No Known Allergies Allergy Verified 02/27/18 18:07 - Medications Medications: Current Medications Aspirin (Ecotrin) 81 mg PO DAILY [facility] Last Admin: 06/20/18 10:08 Dose: 81 mg Atorvastatin Calcium (Lipitor) 40 mg PO DAILY [facility] Last Admin: 06/20/18 10:09 Dose: 40 mg Carvedilol (Coreg) 3.125 mg PO Q12 [facility] Last Admin: 06/20/18 10:09 Dose: 3.125 mg Cinacalcet (Sensipar) 30 mg PO DAILY [facility] Last Admin: 06/20/18 10:08 Dose: 30 mg Clopidogrel Bisulfate (Plavix) 75 mg PO DAILY [facility] Last Admin: 06/20/18 10:09 Dose: 75 mg Dextrose (Dextrose 50% Inj) 0 ml IV STAT PRN; Protocol PRN Reason: Hypoglycemia Protocol Heparin Sodium (Porcine) (Heparin) 5,000 units SC Q8 [facility]; Protocol Last Admin: 06/20/18 06:07 Dose: 5,000 units Dextrose (Dextrose 5% In Water 1000 Ml) 1,000 mls @ 0 mls/hr IV .Q0M PRN; Protocol PRN Reason: Hypoglycemia Protocol Insulin Human Lispro (Humalog Low) 0 units SC ACHS [facility]; Protocol Last Admin: 06/20/18 08:10 Dose: Not Given Lactic Acid (Lac-Hydrin 12% Cream (140 G)) 0 ea TOP BID [facility] Levothyroxine Sodium (Synthroid) 125 mcg PO 0600 [facility] Last Admin: 06/20/18 06:08 Dose: 125 mcg Losartan Potassium (Cozaar) 25 mg PO TTS [facility] Last Admin: 06/20/18 10:08 Dose: 25 mg Non-Formulary Medication (Ferric Citrate [Auryxia]) 2 tab PO TID [facility] Tramadol HCl (Ultram) 50 mg PO Q12 PRN PRN Reason: Pain, moderate (4-7) Physical Exam - Constitutional Appears: Well, Non-toxic, No Acute Distress - Head Exam Head Exam: ATRAUMATIC, NORMAL INSPECTION, NORMOCEPHALIC - Eye Exam Eye Exam: EOMI, PERRL - ENT Exam ENT Exam: Mucous Membranes Moist - Respiratory Exam Respiratory Exam: Clear to Auscultation Bilateral, NORMAL BREATHING PATTERN - Cardiovascular Exam Cardiovascular Exam: REGULAR RHYTHM - GI/Abdominal Exam GI & Abdominal Exam: Soft. absent: Tenderness - Extremities Exam Extremities exam: Positive for: full ROM, pedal pulses present - Neurological Exam Neurological exam: Alert, CN II-XII Intact, Oriented x3, Reflexes Normal Results - Vital Signs Recent Vital Signs: Last Vital Signs Temp 98.0 F 06/20/18 06:00 Pulse 104 H 06/20/18 10:09 Resp 20 06/20/18 06:00 BP 104/71 06/20/18 10:09 Pulse Ox 92 L 06/20/18 06:00 - Labs Result Diagrams: 06/20/18 06:30 06/20/18 06:30 Labs: Laboratory Results - last 24 hr 06/19/18 06/19/18 06/19/18 19:47 20:30 20:30 WBC RBC Hgb Hct MCV MCH MCHC RDW Plt Count MPV Neut % (Auto) Lymph % (Auto) [place] % (Auto) Eos % (Auto) Baso % (Auto) Lymph # (Auto) [place] # (Auto) Eos # (Auto) Baso # (Auto) Absolute Neuts (auto) PT 12.6 H INR 1.14 APTT 34.3 Sodium 138 Potassium 4.2 Chloride 94 L Carbon Dioxide 33 Anion Gap 15 BUN 29 H Creatinine 3.9 H Est GFR ( Amer) 19 Est GFR (Non-Af Amer) 16 POC Glucose (mg/dL) 210 H Random Glucose 217 H Calcium 9.2 Phosphorus Magnesium Total Bilirubin 0.7 AST 22 ALT 11 Alkaline Phosphatase 79 Lactate Dehydrogenase 567 Total Creatine Kinase 43 Troponin I 0.07 Total Protein 8.3 Albumin 4.0 Globulin 4.3 Albumin/Globulin Ratio 0.9 L 06/19/18 06/20/18 06/20/18 20:30 06:30 06:30 WBC 12.8 H 11.1 H RBC 4.15 4.04 Hgb 12.9 L 12.3 L Hct 39.5 L 38.1 L MCV 95.2 94.3 MCH 31.1 30.4 MCHC 32.7 32.3 RDW 13.8 13.7 Plt Count 250 247 MPV 10.4 10.4 Neut % (Auto) 72.1 H Lymph % (Auto) 13.2 L [place] % (Auto) 11.1 H Eos % (Auto) 3.2 Baso % (Auto) 0.4 Lymph # (Auto) 1.5 [place] # (Auto) 1.2 H Eos # (Auto) 0.4 Baso # (Auto) 0.04 Absolute Neuts (auto) 8.02 H PT INR APTT Sodium 139 Potassium 3.7 Chloride 99 Carbon Dioxide 28 Anion Gap 16 BUN 33 H Creatinine 4.8 H Est GFR ( Amer) 15 Est GFR (Non-Af Amer) 12 POC Glucose (mg/dL) Random Glucose 69 L Calcium 8.9 Phosphorus 5.2 H Magnesium 1.9 Total Bilirubin 0.8 AST 17 D ALT 11 Alkaline Phosphatase 73 Lactate Dehydrogenase Total Creatine Kinase Troponin I Total Protein 7.7 Albumin 4.0 Globulin 3.7 Albumin/Globulin Ratio 1.1 06/20/18 07:30 WBC RBC Hgb Hct MCV MCH MCHC RDW Plt Count MPV Neut % (Auto) Lymph % (Auto) [place] % (Auto) Eos % (Auto) Baso % (Auto) Lymph # (Auto) [place] # (Auto) Eos # (Auto) Baso # (Auto) Absolute Neuts (auto) PT INR APTT Sodium Potassium Chloride Carbon Dioxide Anion Gap BUN Creatinine Est GFR ( Amer) Est GFR (Non-Af Amer) POC Glucose (mg/dL) 84 Random Glucose Calcium Phosphorus Magnesium Total Bilirubin AST ALT Alkaline Phosphatase Lactate Dehydrogenase Total Creatine Kinase Troponin I Total Protein Albumin Globulin Albumin/Globulin Ratio Assessment & Plan - Assessment and Plan (Free Text) Plan: Syncope rule out seizure -CT Head negative for acute pathology -EEG pending -Keppra 500 daily -Carotid US pending -orthostatics -keep hydrated <Néstor Villatoro - Last Filed: 06/20/18 17:07> Meds - Medications Medications: Current Medications Amiodarone HCl (Cordarone) 400 mg PO TID [facility] Stop: 06/22/18 14:01 Last Admin: 06/20/18 14:05 Dose: 400 mg Amiodarone HCl (Cordarone) 200 mg PO BID [facility] Aspirin (Ecotrin) 81 mg PO DAILY [facility] Last Admin: 06/20/18 10:08 Dose: 81 mg Atorvastatin Calcium (Lipitor) 40 mg PO DAILY [facility] Last Admin: 06/20/18 10:09 Dose: 40 mg Carvedilol (Coreg) 3.125 mg PO Q12 [facility] Last Admin: 06/20/18 10:09 Dose: 3.125 mg Cinacalcet (Sensipar) 30 mg PO DAILY [facility] Last Admin: 06/20/18 10:08 Dose: 30 mg Clopidogrel Bisulfate (Plavix) 75 mg PO DAILY [facility] Last Admin: 06/20/18 10:09 Dose: 75 mg Dextrose (Dextrose 50% Inj) 0 ml IV STAT PRN; Protocol PRN Reason: Hypoglycemia Protocol Heparin Sodium (Porcine) (Heparin) 5,000 units SC Q8 [facility]; Protocol Last Admin: 06/20/18 13:41 Dose: 5,000 units Dextrose (Dextrose 5% In Water 1000 Ml) 1,000 mls @ 0 mls/hr IV .Q0M PRN; Protocol PRN Reason: Hypoglycemia Protocol Insulin Human Lispro (Humalog Low) 0 units SC ACHS [facility]; Protocol Last Admin: 06/20/18 13:39 Dose: Not Given Lactic Acid (Lac-Hydrin 12% Cream (140 G)) 0 ea TOP BID [facility] Last Admin: 06/20/18 10:03 Dose: 1 applic Levetiracetam (Keppra) 500 mg PO DAILY [facility] Last Admin: 06/20/18 15:42 Dose: 500 mg Levothyroxine Sodium (Synthroid) 125 mcg PO 0600 [facility] Last Admin: 06/20/18 06:08 Dose: 125 mcg Losartan Potassium (Cozaar) 25 mg PO TTS [facility] Last Admin: 06/20/18 10:08 Dose: 25 mg Non-Formulary Medication (Ferric Citrate [Auryxia]) 2 tab PO TID [facility] Last Admin: 06/20/18 13:38 Dose: Not Given Tramadol HCl (Ultram) 50 mg PO Q12 PRN PRN Reason: Pain, moderate (4-7) Results - Vital Signs Recent Vital Signs: Last Vital Signs Temp 98.2 F 06/20/18 11:57 Pulse 106 H 06/20/18 14:05 Resp 18 06/20/18 11:57 BP 108/65 06/20/18 14:05 Pulse Ox 92 L 06/20/18 06:00 - Labs Result Diagrams: 06/20/18 06:30 06/20/18 06:30 Labs: Laboratory Results - last 24 hr 06/19/18 06/19/18 06/19/18 19:47 20:30 20:30 WBC RBC Hgb Hct MCV MCH MCHC RDW Plt Count MPV Neut % (Auto) Lymph % (Auto) [place] % (Auto) Eos % (Auto) Baso % (Auto) Lymph # (Auto) [place] # (Auto) Eos # (Auto) Baso # (Auto) Absolute Neuts (auto) PT 12.6 H INR 1.14 APTT 34.3 Sodium 138 Potassium 4.2 Chloride 94 L Carbon Dioxide 33 Anion Gap 15 BUN 29 H Creatinine 3.9 H Est GFR ( Amer) 19 Est GFR (Non-Af Amer) 16 POC Glucose (mg/dL) 210 H Random Glucose 217 H Hemoglobin A1c Calcium 9.2 Phosphorus Magnesium Total Bilirubin 0.7 AST 22 ALT 11 Alkaline Phosphatase 79 Lactate Dehydrogenase 567 Total Creatine Kinase 43 Troponin I 0.07 Total Protein 8.3 Albumin 4.0 Globulin 4.3 Albumin/Globulin Ratio 0.9 L 06/19/18 06/20/18 06/20/18 20:30 06:30 06:30 WBC 12.8 H 11.1 H RBC 4.15 4.04 Hgb 12.9 L 12.3 L Hct 39.5 L 38.1 L MCV 95.2 94.3 MCH 31.1 30.4 MCHC 32.7 32.3 RDW 13.8 13.7 Plt Count 250 247 MPV 10.4 10.4 Neut % (Auto) 72.1 H Lymph % (Auto) 13.2 L [place] % (Auto) 11.1 H Eos % (Auto) 3.2 Baso % (Auto) 0.4 Lymph # (Auto) 1.5 [place] # (Auto) 1.2 H Eos # (Auto) 0.4 Baso # (Auto) 0.04 Absolute Neuts (auto) 8.02 H PT INR APTT Sodium 139 Potassium 3.7 Chloride 99 Carbon Dioxide 28 Anion Gap 16 BUN 33 H Creatinine 4.8 H Est GFR ( Amer) 15 Est GFR (Non-Af Amer) 12 POC Glucose (mg/dL) Random Glucose 69 L Hemoglobin A1c Calcium 8.9 Phosphorus 5.2 H Magnesium 1.9 Total Bilirubin 0.8 AST 17 D ALT 11 Alkaline Phosphatase 73 Lactate Dehydrogenase Total Creatine Kinase Troponin I Total Protein 7.7 Albumin 4.0 Globulin 3.7 Albumin/Globulin Ratio 1.1 06/20/18 06/20/18 06/20/18 07:30 08:20 11:59 WBC RBC Hgb Hct MCV MCH MCHC RDW Plt Count MPV Neut % (Auto) Lymph % (Auto) [place] % (Auto) Eos % (Auto) Baso % (Auto) Lymph # (Auto) [place] # (Auto) Eos # (Auto) Baso # (Auto) Absolute Neuts (auto) PT INR APTT Sodium Potassium Chloride Carbon Dioxide Anion Gap BUN Creatinine Est GFR ( Amer) Est GFR (Non-Af Amer) POC Glucose (mg/dL) 84 149 H Random Glucose Hemoglobin A1c 6.8 H Calcium Phosphorus Magnesium Total Bilirubin AST ALT Alkaline Phosphatase Lactate Dehydrogenase Total Creatine Kinase Troponin I Total Protein Albumin Globulin Albumin/Globulin Ratio 06/20/18 16:37 WBC RBC Hgb Hct MCV MCH MCHC RDW Plt Count MPV Neut % (Auto) Lymph % (Auto) [place] % (Auto) Eos % (Auto) Baso % (Auto) Lymph # (Auto) [place] # (Auto) Eos # (Auto) Baso # (Auto) Absolute Neuts (auto) PT INR APTT Sodium Potassium Chloride Carbon Dioxide Anion Gap BUN Creatinine Est GFR ( Amer) Est GFR (Non-Af Amer) POC Glucose (mg/dL) 133 H Random Glucose Hemoglobin A1c Calcium Phosphorus Magnesium Total Bilirubin AST ALT Alkaline Phosphatase Lactate Dehydrogenase Total Creatine Kinase Troponin I Total Protein Albumin Globulin Albumin/Globulin Ratio Attending/Attestation - Attestation I have personally seen and examined this patient.: Yes I have fully participated in the care of the patient.: Yes I have reviewed all pertinent clinical information: Yes Notes (Text): I agree with the assessment and plan. There is concern that the patient may have had a seizure. CT head showed multiple areas of chronic infarcts, the largest of which is the right temporal lobe, which could be epileptogenic. Will start Keppra 500 mg BID and obtain EEG for one hour for further evaluation. Thank you.
--- NOTE | 2018-06-20 11:39 | CARD ---
APPROVED REPORT Date of service: 06/19/2018 EKG Measurement Heart [id number] <Conclusion> Ventricular paced rhythm with premature ventricular complexes Possible Lateral infarct, age undetermined Abnormal ECG
[2018-06-20] MEDS ORDERED: Amiodarone 150 mg/D5W 100 ml 150 MG/100 ML BAG IV ONE (12:57)
[2018-06-20] MEDS ORDERED: Potassium Chloride 20 mEq ER Tab PO ONE (13:05)
[2018-06-20] MEDS ORDERED: Amiodarone 360 mg/D5W 200 ml 360 MG/200 ML BAG IV SCH ×2 (13:15→19:15)
--- NOTE | 2018-06-20 13:56 | US ---
PROCEDURE: Bilateral carotid artery duplex ultrasound HISTORY: Carotid stenosis syncope. PHYSICIAN(S): Merlin Nagy MD. TECHNIQUE: Duplex sonography and color-flow Doppler were used to evaluate the carotid bifurcations and limited segments of the vertebral arteries bilaterally. FINDINGS: There is mild smooth heterogeneous plaque noted at the carotid bifurcations bilaterally. The peak systolic velocity in the proximal right internal carotid artery is 68 cm/sec. This corresponds to a 20 to 39% proximal right ICA stenosis. Normal systolic velocities are noted in the proximal right external carotid artery. There is antegrade flow in the right vertebral artery. The peak systolic velocity in the proximal left internal carotid artery is 92 cm/sec. This corresponds to a 20 to 39% proximal left ICA stenosis. Normal systolic velocities are noted in the proximal left external carotid artery. There is antegrade flow in the left vertebral artery. IMPRESSION: 1. Bilateral 20-39% proximal ICA stenoses. 2. Antegrade flow in both vertebral arteries.
--- NOTE | 2018-06-21 02:33 | CON ---
DATE: 06/20/2018 LOCATION: The patient in room 271, bed 1. REASON FOR CONSULTATION: Syncope, history of coronary artery disease, history of cardiomyopathy, and history of AICD insertion. HISTORY OF PRESENT ILLNESS: The patient is a 62-year-old male, he say he was sitting on sofa when he for few seconds passed out. He denies any palpitations, chest pain, or any thump in the chest because the patient had AICD insertion. Denies any nausea, vomiting, or any chest pain. The patient known case of coronary artery disease, has stent put in 2 years ago, severe cardiomyopathy with ejection fraction around 20%. The patient had AICD inserted, also case of renal failure, on hemodialysis and diabetes mellitus. The patient also has developmental delay mentally and hypercholesterolemia. The patient is conscious, alert, and denies any chest pain, shortness of breath, or palpitations at present. PAST MEDICAL HISTORY: Positive for coronary artery disease, history of angioplasty, stent insertion about 2 years ago, severe cardiomyopathy with echo on 12/16/2017 showed ejection fraction of 20%. The patient had AICD inserted and he follows with Dr. Wright and Dr. Elliott at [facility] in [facility]. The patient had [facility] AICD insertion 3 years ago and his battery was changed in 11/2017, again at [facility]. The patient on dialysis. The patient also had developmental delay causing mental disability. PERSONAL HISTORY: Denies smoking. Denies drinking. ALLERGIES: DENIES ANY ALLERGIES. FAMILY HISTORY: Not significant. HOME MEDICATIONS LIST: The patient was on Sensipar 30 mg p.o. daily, Amaryl 2 mg p.o. every 12 hours, Ultram 50 mg p.o. every 12 hours p.r.n., losartan 25 mg, atorvastatin 40 mg daily, Synthroid 125 mcg p.o. daily, carvedilol 3.125 p.o. b.i.d., Plavix 75 daily, ferric citrate 2 tablet p.o. t.i.d., and aspirin 81 mg daily. REVIEW OF SYSTEMS: All the systems reviewed. Positive mentioned in history, others were negative. CARDIAC WORKUP: The patient echo on 12/16/2017, which showed markedly dilated left ventricle and severe global hypokinesia with LV ejection fraction of 20%, , mild mitral regurgitation, mild pulmonary regurgitation, and trace tricuspid regurgitation. PHYSICAL EXAMINATION: VITAL SIGNS: Blood pressure 100/66, respirations 18, pulse 95, and temperature 98.1. HEENT: Head is normocephalic. Eyes; pupils are normal. Conjunctivae normal. Nose and throat normal. NECK: JVP low. Carotid equal. THORAX: AP diameter normal. LUNGS: Clear. CARDIOVASCULAR: S1 and S2. ABDOMEN: Soft. No tenderness. No organomegaly. Bowel sounds normal. EXTREMITIES: No clubbing. No cyanosis. LABORATORY DATA: WBC 11.1, hemoglobin 12.3, hematocrit 38.1, and platelet 247. Sodium 139, potassium 3.7, BUN 33, creatinine 4.8, random sugar 133, and magnesium 1.9. AST and ALT normal. Total protein and albumin normal. Troponin 0.07. Chest x-ray, no active disease. EKG shows ventricular pacemaker rhythm with premature ventricular complexes. The patient's AICD is interrogated and on 06/19/2018 at 5 minutes past 6 p.m., the patient had run of V-fib and AICD delivered to shock, but the patient says he never felt anything. DIAGNOSES: Syncope related to ventricular fibrillation on at 5 minutes past 6 p.m., severe cardiomyopathy, status post automatic implantable cardioverter-defibrillator insertion, status post defibrillator shock at time of ventricular fibrillation yesterday evening, but the patient did not feel anything, hypothyroidism, renal failure, on dialysis, uncontrolled diabetes mellitus, mental disability, hypercholesterolemia, coronary artery disease, and history of angioplasty 2 years ago. PLAN: Since the patient has ventricular fibrillation with syncope and shock was delivered by defibrillator, we will give amiodarone 150 mg IV bolus and then start amiodarone 400 mg p.o. t.i.d. for 2 days then 200 mg p.o. b.i.d. Continue carvedilol 3.125 every 12 hours, losartan 25 mg , aspirin 81 daily, heparin 5000 units subcutaneously every 8 hours, levetiracetam 500 mg p.o. daily, Lipitor 40 daily, Plavix 75 daily, levothyroxine 125 mcg daily, and tramadol 50 mg p.o. every 2 hours p.r.n. Complete metabolic panel already requested for tomorrow. We will do TSH also and we will check magnesium and phosphorous already ordered. We will check TSH and lipid profile. We will monitor with you and follow with you. Ayad Moreau MD
[2018-06-21] MEDS: Levothyroxine 125 MCG TAB PO SCH (05:44)
[2018-06-21 07:42] LABS: BASO # 0.06 K/mm3 (0.0-2.0); BASO % 0.5 % (0.0-3.0); EOS # 0.3 (0.0-0.7); EOS % 2.6 % (1.5-5.0); HEMOGLOBIN 12.4 g/dL (14.0-18.0); LYMPH # 1.7 (1.2-3.4); LYMPH % 14.5 % (22.0-35.0); MEAN CELL VOLUME 95.6 fl (80.0-105.0); MEAN CORPUSCULAR HEMOGLOBIN 31.9 pg (25.0-35.0); MEAN CORPUSCULAR HGB CONC 33.3 g/dl (31.0-37.0); MEAN PLATELET VOLUME 10.7 fl (7.0-11.0); MONO # 1.2 (0.1-0.6); MONO % 10.4 % (1.0-6.0); RBC 3.89 10^6/uL (3.5-6.1); RED CELL DISTRIBUTION WIDTH 14.3 % (11.5-14.5); WHITE BLOOD COUNT 11.8 10^3/uL (4.5-11.0)
[2018-06-21] MEDS: Insulin Lispro (humaLOG) LOW Coverage SC SCH ×4 (08:05→22:14)
[2018-06-21 08:11] LABS: ALB/GLOB RATIO 1.1 (1.1-1.8); ALBUMIN 4.2 g/dL (3.0-4.8); CALCIUM 8.9 mg/dL (8.4-10.5)
--- NOTE | 2018-06-21 08:28 | CP.PCM.PCO ---
Assessment/Plan Progress Note - Assessment/Plan Plan (Free Text): Per Dr Espitia, since pt bp is 101 at 7am today, an no further events. ok to go for dialysis. However, he should be on telemonitor during transfer and during hemodialysis. thanks - Problems Patient Problems: Problem List (Active/Current) Problem Status Onset Code Syncope Acute R55
--- NOTE | 2018-06-21 08:40 | CP.PCM.PN ---
Subjective - Date & Time of Evaluation Date of Evaluation: 06/21/18 Time of Evaluation: 06:20 - Subjective Subjective: Awake, no distress Reason for consultation and follow up: Cardiac evaluation of syncope, history of cardiomyopathy, post AICD Seen and examined by me and Dr. Moreau Objective - Vital Signs/Intake and Output Vital Signs (last 24 hours): Temp Pulse Resp BP Pulse Ox 97.5 F L 88 19 83/55 L 96 06/21/18 06:00 06/21/18 06:00 06/21/18 06:00 06/21/18 06:00 06/21/18 06:00 Intake and Output: 06/21/18 06/21/18 06:59 18:59 Intake Total 640 Output Total 350 Balance 290 - Medications Medications: Current Medications Amiodarone HCl (Cordarone) 400 mg PO TID [facility] Stop: 06/22/18 14:01 Last Admin: 06/20/18 17:25 Dose: 400 mg Amiodarone HCl (Cordarone) 200 mg PO BID [facility] Aspirin (Ecotrin) 81 mg PO DAILY [facility] Last Admin: 06/20/18 10:08 Dose: 81 mg Atorvastatin Calcium (Lipitor) 40 mg PO DAILY [facility] Last Admin: 06/20/18 10:09 Dose: 40 mg Carvedilol (Coreg) 3.125 mg PO Q12 [facility] Cinacalcet (Sensipar) 30 mg PO DAILY [facility] Last Admin: 06/20/18 10:08 Dose: 30 mg Clopidogrel Bisulfate (Plavix) 75 mg PO DAILY [facility] Last Admin: 06/20/18 10:09 Dose: 75 mg Dextrose (Dextrose 50% Inj) 0 ml IV STAT PRN; Protocol PRN Reason: Hypoglycemia Protocol Heparin Sodium (Porcine) (Heparin) 5,000 units SC Q8 [facility]; Protocol Last Admin: 06/21/18 05:44 Dose: 5,000 units Dextrose (Dextrose 5% In Water 1000 Ml) 1,000 mls @ 0 mls/hr IV .Q0M PRN; Protocol PRN Reason: Hypoglycemia Protocol Insulin Human Lispro (Humalog Low) 0 units SC ACHS [facility]; Protocol Last Admin: 06/21/18 08:05 Dose: Not Given Lactic Acid (Lac-Hydrin 12% Cream (140 G)) 0 ea TOP BID [facility] Last Admin: 06/20/18 17:27 Dose: 1 applic Levetiracetam (Keppra) 500 mg PO DAILY [facility] Last Admin: 06/20/18 15:42 Dose: 500 mg Levothyroxine Sodium (Synthroid) 125 mcg PO 0600 [facility] Last Admin: 06/21/18 05:44 Dose: 125 mcg Losartan Potassium (Cozaar) 25 mg PO TTS [facility] Non-Formulary Medication (Ferric Citrate [Auryxia]) 2 tab PO TID [facility] Last Admin: 06/20/18 17:06 Dose: Not Given Tramadol HCl (Ultram) 50 mg PO Q12 PRN PRN Reason: Pain, moderate (4-7) - Labs Labs: 06/21/18 07:00 06/21/18 07:00 PT 12.6 SECONDS (9.4-12.5) H 06/19/18 20:30 INR 1.14 06/19/18 20:30 APTT 34.3 Seconds (26.9-38.3) 06/19/18 20:30 - Constitutional Appears: Non-toxic, No Acute Distress - Head Exam Head Exam: NORMAL INSPECTION, NORMOCEPHALIC - Eye Exam Eye Exam: Normal appearance Pupil Exam: NORMAL ACCOMODATION - ENT Exam ENT Exam: Mucous Membranes Moist, Normal Exam - Respiratory Exam Respiratory Exam: Decreased Breath Sounds, Clear to Ausculation Bilateral, NORMAL BREATHING PATTERN - Cardiovascular Exam Cardiovascular Exam: +S1, +S2 Additional comments: AICD - GI/Abdominal Exam GI & Abdominal Exam: Soft, Normal Bowel Sounds - Extremities Exam Extremities Exam: Full ROM, Normal Capillary Refill - Neurological Exam Neurological Exam: Alert, Awake - Psychiatric Exam Psychiatric exam: Normal Affect, Normal Mood - Skin Skin Exam: Dry, Normal Color, Warm Assessment and Plan - Assessment and Plan (Free Text) Assessment: A 62 year old male who came in to the ER due to syncopal episode. History of congestive heart failure, cardiomyopathy, AICD for low EF, ESRD on hemodialysis MWF, coronary artery disease with stents. developmental delay,diabetes, hypertension,hypothyroidism, BPH, permacath AICD interrogation on showed runs of Vfib with AICD delivered shock but patient denies felling the shock. Started on Amiodarone. Systolic blood pressure was on 80's this morning. Continue Amiodarone, will hold Losartan and Coreg for now. Plan: Low SBP per RN Continue Amiodarone Hold Coreg and Losartan, will resume when BP stabilize For hemodialysis today Continue current management Continue current treatment Replenish potassium and magnesium as needed Will follow up Plan and treatment discussed with Dr. Moreau
[2018-06-21] MEDS: FERRIC CITRATE PO SCH ×3 (09:48→18:02)
[2018-06-21] MEDS: Ammonium Lactate 12% Cream (140 g) TOP SCH ×2 (10:00→18:10)
--- NOTE | 2018-06-21 11:54 | PCM.EEG ---
Electroencephalogram Report - Electroencephalogram Report Procedure Date: 06/20/18 Medication: Amiodarob, Lipitor, Carvedilol, Keppra Interpretation: . Technical Information: This was a 16 -channel EEG, 1-channel EKG routine EEG performed using an [employer] machine. Electrodes were applied using the 10/20 international placement system. Clinical Information: syncope During resting wakefulness there was a symmetric posterior dominant rhythm at 8.5-9.5 Hz, 30-50 uV, which was reactive to eye opening and closing. Drowsiness (17;43) was associated with fragmentation of the posterior dominant rhythm and with slow roving eye movements. Light sleep was not recorded. Hyperventilation was not performed. Photic stimulation was performed and there were no changes on the record. Focal abnormality; none Impression: This is a normal awake and drowsy electroencephalogram.
--- NOTE | 2018-06-21 12:07 | CP.PCM.PN ---
Subjective - Date & Time of Evaluation Date of Evaluation: 06/21/18 Time of Evaluation: 06:00 - Subjective Subjective: Patient seen and evaluated bedside, no acute issues overnight. Patient states he feels well, denies syncope, headaches, seizure, falls, or any other complaints. Objective - Vital Signs/Intake and Output Vital Signs (last 24 hours): Temp Pulse Resp BP Pulse Ox 97.5 F L 98 H 19 94/69 L 96 06/21/18 06:00 06/21/18 10:00 06/21/18 06:00 06/21/18 09:48 06/21/18 06:00 Intake and Output: 06/21/18 06/21/18 06:59 18:59 Intake Total 640 Output Total 350 Balance 290 - Medications Medications: Current Medications Amiodarone HCl (Cordarone) 200 mg PO BID [facility] Amiodarone HCl (Cordarone) 400 mg PO TID [facility] Stop: 06/22/18 14:01 Last Admin: 06/21/18 09:48 Dose: Not Given Aspirin (Ecotrin) 81 mg PO DAILY [facility] Last Admin: 06/20/18 10:08 Dose: 81 mg Atorvastatin Calcium (Lipitor) 40 mg PO DAILY [facility] Last Admin: 06/20/18 10:09 Dose: 40 mg Carvedilol (Coreg) 3.125 mg PO Q12 [facility] Cinacalcet (Sensipar) 30 mg PO DAILY [facility] Last Admin: 06/20/18 10:08 Dose: 30 mg Clopidogrel Bisulfate (Plavix) 75 mg PO DAILY [facility] Last Admin: 06/20/18 10:09 Dose: 75 mg Dextrose (Dextrose 50% Inj) 0 ml IV STAT PRN; Protocol PRN Reason: Hypoglycemia Protocol Heparin Sodium (Porcine) (Heparin) 5,000 units SC Q8 [facility]; Protocol Last Admin: 06/21/18 05:44 Dose: 5,000 units Dextrose (Dextrose 5% In Water 1000 Ml) 1,000 mls @ 0 mls/hr IV .Q0M PRN; Protocol PRN Reason: Hypoglycemia Protocol Insulin Human Lispro (Humalog Low) 0 units SC ACHS [facility]; Protocol Last Admin: 06/21/18 08:05 Dose: Not Given Lactic Acid (Lac-Hydrin 12% Cream (140 G)) 0 ea TOP BID [facility] Last Admin: 06/20/18 17:27 Dose: 1 applic Levothyroxine Sodium (Synthroid) 125 mcg PO 0600 [facility] Last Admin: 06/21/18 05:44 Dose: 125 mcg Losartan Potassium (Cozaar) 25 mg PO TTS [facility] Non-Formulary Medication (Ferric Citrate [Auryxia]) 2 tab PO TID [facility] Last Admin: 06/21/18 09:48 Dose: Not Given Tramadol HCl (Ultram) 50 mg PO Q12 PRN PRN Reason: Pain, moderate (4-7) - Labs Labs: 06/21/18 07:00 06/21/18 07:00 PT 12.6 SECONDS (9.4-12.5) H 06/19/18 20:30 INR 1.14 06/19/18 20:30 APTT 34.3 Seconds (26.9-38.3) 06/19/18 20:30 - Constitutional Appears: Non-toxic, No Acute Distress - Head Exam Head Exam: NORMAL INSPECTION, NORMOCEPHALIC - Eye Exam Eye Exam: Normal appearance - Cardiovascular Exam Cardiovascular Exam: REGULAR RHYTHM - GI/Abdominal Exam GI & Abdominal Exam: Soft - Neurological Exam Neurological Exam: Alert, Awake, Oriented x3 Neuro motor strength exam: Left Upper Extremity: 5, Right Upper Extremity: 5, Left Lower Extremity: 5, Right Lower Extremity: 5 Assessment and Plan - Assessment and Plan (Free Text) Plan: Plan: Syncope -CT Head negative for acute pathology -EEG study normal -D/C Keppra as patient does not appear to have seizures -AICD showed vfib during syncope, likely cause of syncope -no further workup from neurology point of view -further recs as per cardio
--- NOTE | 2018-06-21 12:52 | CP.PCM.PN ---
<Ovidio Hollingsworth - Last Filed: 06/21/18 12:47> Subjective - Date & Time of Evaluation Date of Evaluation: 06/21/18 Time of Evaluation: 08:00 - Subjective Subjective: Ovidio Hollingsworth PGY1 Medicine Progress Note for Dr. Corbin Patient seen at bedside this morning. Patient was hypotensive this morning with BP: 83/55 most recent reading. Patient denies lightheadedness, dizziness, cp, sob, n/v/d, fever, chills. Patient explained that syncopal episode was due to his AICD firing from vfib. He remains grossly asymptomatic. A full 12 point ROS was conducted and unremarkable except as stated above. Objective - Vital Signs/Intake and Output Vital Signs (last 24 hours): Temp Pulse Resp BP Pulse Ox 97.5 F L 98 H 19 94/69 L 96 06/21/18 06:00 06/21/18 10:00 06/21/18 06:00 06/21/18 09:48 06/21/18 06:00 Intake and Output: 06/21/18 06/21/18 06:59 18:59 Intake Total 640 Output Total 350 Balance 290 - Medications Medications: Current Medications Amiodarone HCl (Cordarone) 200 mg PO BID [facility] Amiodarone HCl (Cordarone) 400 mg PO TID [facility] Stop: 06/22/18 14:01 Last Admin: 06/21/18 09:48 Dose: Not Given Aspirin (Ecotrin) 81 mg PO DAILY [facility] Last Admin: 06/20/18 10:08 Dose: 81 mg Atorvastatin Calcium (Lipitor) 40 mg PO DAILY [facility] Last Admin: 06/20/18 10:09 Dose: 40 mg Carvedilol (Coreg) 3.125 mg PO Q12 [facility] Cinacalcet (Sensipar) 30 mg PO DAILY [facility] Last Admin: 06/20/18 10:08 Dose: 30 mg Clopidogrel Bisulfate (Plavix) 75 mg PO DAILY [facility] Last Admin: 06/20/18 10:09 Dose: 75 mg Dextrose (Dextrose 50% Inj) 0 ml IV STAT PRN; Protocol PRN Reason: Hypoglycemia Protocol Heparin Sodium (Porcine) (Heparin) 5,000 units SC Q8 [facility]; Protocol Last Admin: 06/21/18 05:44 Dose: 5,000 units Dextrose (Dextrose 5% In Water 1000 Ml) 1,000 mls @ 0 mls/hr IV .Q0M PRN; Protocol PRN Reason: Hypoglycemia Protocol Insulin Human Lispro (Humalog Low) 0 units SC ACHS [facility]; Protocol Last Admin: 06/21/18 08:05 Dose: Not Given Lactic Acid (Lac-Hydrin 12% Cream (140 G)) 0 ea TOP BID [facility] Last Admin: 06/20/18 17:27 Dose: 1 applic Levothyroxine Sodium (Synthroid) 125 mcg PO 0600 [facility] Last Admin: 06/21/18 05:44 Dose: 125 mcg Losartan Potassium (Cozaar) 25 mg PO TTS [facility] Non-Formulary Medication (Ferric Citrate [Auryxia]) 2 tab PO TID [facility] Last Admin: 06/21/18 09:48 Dose: Not Given Tramadol HCl (Ultram) 50 mg PO Q12 PRN PRN Reason: Pain, moderate (4-7) - Labs Labs: 06/21/18 07:00 06/21/18 07:00 PT 12.6 SECONDS (9.4-12.5) H 06/19/18 20:30 INR 1.14 06/19/18 20:30 APTT 34.3 Seconds (26.9-38.3) 06/19/18 20:30 - Constitutional Appears: Non-toxic, No Acute Distress - Head Exam Head Exam: ATRAUMATIC - Eye Exam Eye Exam: EOMI, Normal appearance Pupil Exam: PERRL - ENT Exam ENT Exam: Mucous Membranes Moist - Respiratory Exam Respiratory Exam: Clear to Auscultation Bilateral, NORMAL BREATHING PATTERN. absent: Rhonchi, Wheezes - Cardiovascular Exam Cardiovascular Exam: REGULAR RHYTHM, +S1, +S2. No murmurs. Scar on chest wall from AICD. Additional comments: - GI/Abdominal Exam GI & Abdominal Exam: Normal Bowel Sounds, Soft. absent: Tenderness - Extremities Exam Extremities exam: Negative for: pedal edema, tenderness Additional comments: Chronic-appearing skin changes b/l. No numbness or tingling - Neurological Exam Neurological exam: Alert, CN II-XII Intact, Oriented x3 Additional comments: Muscle strength and sensation intact throughout. 5/5 motor strength. Sensation intact. No neuro deficits. - Psychiatric Exam Psychiatric exam: Normal Affect, Normal Mood - Skin Skin Exam: Dry, Intact, Warm Additional comments: Chronic-appearing skin changes of feet b/l Assessment and Plan - Assessment and Plan (Free Text) Assessment: Patient is a 62 y/o M with pMHx CAD s/p PCI, HTN, CHF s/p AICD with EF 34%, ESRD (HD MWF), DM II (A1c 7.2), Hypothyroidism, BPH, and Mild Developmental Delay who presented to [facility] for syncopal episode. Patient's syncopal episode is likely due to ventricular fibrillation firing as discovered from his AICD interrogation. He is being monitored on telemetry. Neurology, Nephrology, and Cardiology are on consult. Plan: Syncope 2/2 Ventricular Fibrillation - s/p AICD firing - c/w amiodarone 400mg PO TID and then taper to 200mg BID as per cardio recs - Patient currently asymptomatic; monitor - Patient has a [employer] AICD in place. Interrogation revealed Vfib during syncopal episode. - EEG negative for seizure activity; patient was on ppx keppra 500mg BID - it can be discontinued - Cardiology is on consult (Dr. Moreau). Recs appreciated. - Neurology is on consult (Dr. Villatoro) - Carotid US: 20-39% proximal ICA stenosis. - Head CT: chronic microvascular changes in the periventricular white matter and basal ganglia bilaterally. Focal area of encephalomalacia in the left parietal lobe. Cystic encephalomalacia in right temporal lobe. Hypotension - asymptomatic at this time; improved to 94/69 - monitor blood pressure - plan for HD today - approval from Nephro - Hold home losartan BP med ESRD on HD (MWF) - Plan for HD today - BUN/Cr 50/7.0; monitor renal fxn - Nephro on consult (Dr. Espitia) HTN and CHF with AICD (EF 34%) - c/w home med coreg - held losartan at this time given hypotension HLD - c/w home med lipitor CAD s/p PCI - c/w asa and plavix home med Hypothyroidism - c/w home med levoythroxine DM II - ISS - Accuchecks ppx: - hep sc Diet: CCD Dispo: monitor patient on telemetry. Will follow up cardio recs in regards to new pacemaker interrogation findings. Case was discussed and reviewed with Attending Physician, Dr. Corbin <Ayad Corbin - Last Filed: 06/23/18 07:44> Objective - Vital Signs/Intake and Output Vital Signs (last 24 hours): Temp Pulse Resp BP Pulse Ox 98.2 F 90 18 91/64 L 94 L 06/22/18 12:00 06/22/18 14:00 06/22/18 12:00 06/22/18 12:00 06/22/18 13:09 - Labs Labs: 06/22/18 06:45 06/22/18 06:45 PT 12.6 SECONDS (9.4-12.5) H 06/19/18 20:30 INR 1.14 06/19/18 20:30 APTT 34.3 Seconds (26.9-38.3) 06/19/18 20:30 Attending/Attestation - Attestation I have personally seen and examined this patient.: Yes I have fully participated in the care of the patient.: Yes I have reviewed all pertinent clinical information, including history, physical exam and plan: Yes Notes (Text): 06/23/18 07:41 Medical record note made by the resident after discussion with my direction and input after the patient was personally seen and examined by me. I have reviewed the chart and agree that the record accurately reflects by personal performance of the history, physical exam, data review, and medical decision-making, in the course for the patient. I have also personally directed the plan of care. 62 yrs old Male with pMH of CAD s/p PCI, HTN, CHF with systolic dysfunction, SP AICD , ESRD (HD MWF), DM II (A1c 7.2), Hypothyroidism, BPH, and Mild Developmental Delay who presented to [facility] for syncopal episode. Patient's syncopal episode is likely due to ventricular fibrillation firing as discovered from his AICD interrogation. He is being monitored on telemetry started on Amiodrone by cardiology. Blood pressure is soft, hold ARB for now. EEG is normal, no evidence of seizure, Keppra is discontinued. 06/23/18 07:42
--- NOTE | 2018-06-21 15:27 | CP.PCM.CON ---
History of Present Illness - History of Present Illness History of Present Illness: Nephrology Consultation Note: Assessment: Stable Syncope with V fib Diabetic chronic Kidney Disease (E11.22) Hypertensive Chronic Kidney Disease (I12.0) End stage renal disease (N18.6) dependence on hemodialysis (Z99.2) (MWF) via PC Anemia (D64.9), Hyperphosphatemia (E83.39), Secondary Hyperparathyroidism (E21.1), HTN (I12.0) CAD s/p stent , sCHF s/p AICD, developmental delay Plan: plan for dialysis as per [facility] schedule. Continue with Nephrovite 1 tab/day. PRBC as needed for anemia. not on KRYSTAL with dialysis as last Hb 12.4 Continue with phos binders as Auryxia 210 mg 2 tab TID with meals BP control with meds as ordered. will d/c losartan as BP low Glycemic control, Dialysis consistent diet Further work up/management as per primary team Dose meds/antibiotics (if needed) for ESRD status. Avoid fleets enema/magnesium based laxatives. cardiology following. Thanks for allowing me to participate in care of your patient. Will follow patient with you. Please call if any Qs. d/w team Dr Jassi Espitia Office: [phone] Chief Complaint;syncope HPI: Pt is a 62 M with hx of ESRD on hemodialysis (MWF) via PC @ [place] dialysis unit , chronic anemia, hyperphosphatemia, secondary hype rparathyroidism, Diabetes Mellitus, hypertension CAD s/p stent , sCHF s/p AICD, developmental delay presented with complaints of syncope and foudn to have V fib s/p AICD shock, [facility] Renal consult requested for ESRD management. pt feels in usual health [facility] [place] ROS: Cardiovascular: No chest pain. Pulmonary: No shortness of breath Gastrointestinal: denies abdominal pain No nausea. No vomiting. Genitourinary: No pain while urinating. Denies blood in urine. All other negative except as mentioned in HPI. overall hx limited from pt and not very reliable. Physical Examination: General Appearance: Comfortable, in no acute respiratory distress, co-operative . Vitals reviewed and noted as below Head; Atraumatic, normocephalic ENT: no ulcers no thrush. Tongue is midline. Oropharynx: no rash or ulcers. EYES: Pupils are equal, round and reactive to light accommodation. Eye muscles and extraocular movement intact. Sclera is anicteric. Neck; supple no lymphadenopathy, no thyromegaly or bruit Lungs: Normal respiratory rate/effort. Breath sounds bilateral equal and clear Heart: Normal rate. s1s2 normal. No rub or gallop. Extremities: no edema. No varicose veins Neurological: Patient is alert, awake and oriented to person, place and time. No focal deficit. Strength bilateral appropriate and equal Skin: Warm and dry. Normal turgor. No rash. Palpitation: Normal elasticity for age Abdomen: Abdomen is soft. Bowel sounds +. There is no abdominal tenderness, no guarding/rigidity or organomegaly Psych: lack insight and normal affect/mood MSK: no joint tenderness or swelling. Digits and nails normal, no deformity : kidney or bladder not palpable Access: PC. left AVF maturing Labs/imaging reviewed. Past medical history, past surgical history, family history, social history, allergy reviewed and noted as below Family Hx: no hx of CKD. Non contributory Past Patient History - Infectious Disease Hx of Infectious Diseases: None - Tetanus Immunizations Tetanus Immunization: Unknown - Past Medical History & Family History Past Medical History?: Yes - Past Social History Smoking Status: Never Smoked - CARDIAC Hx Cardiac Disorders: Yes (cardiac cath, coronary stent, pacemake w/ internal defibrillator) Hx Congestive Heart Failure: Yes Hx Hypertension: Yes (& hypotension) - PULMONARY Hx Respiratory Disorders: Yes Hx Chronic Obstructive Pulmonary Disease (COPD): Yes - NEUROLOGICAL Hx Neurological Disorder: Yes (mental retardation, develommental delay) - HEENT Hx HEENT Problems: No - RENAL Hx Chronic Kidney Disease: Yes Hx Dialysis: Yes (mwf) Type of Dialysis Access: R udall Hx Renal Failure: Yes - ENDOCRINE/METABOLIC Hx Endocrine Disorders: Yes Hx Diabetes Mellitus Type 2: Yes Hx Hypothyroidism: Yes - HEMATOLOGICAL/ONCOLOGICAL Hx Blood Disorders: Yes (hyperkalemia) - INTEGUMENTARY Hx Dermatological Problems: Yes Other/Comment: chronic venous stasis b/l shins, ble skin discolorations and scarring, dry thick toenails both feet, discolored dry brown red skin ble and feet,multiple moles to back, questionable old patterson to ankles - MUSCULOSKELETAL/RHEUMATOLOGICAL Hx Musculoskeletal Disorders: Yes Hx Falls: Yes - GASTROINTESTINAL Hx Gastrointestinal Disorders: Yes (protruding umbilical hernia) - GENITOURINARY/GYNECOLOGICAL Hx Genitourinary Disorders: Yes Hx Prostate Problems: Yes (bph) - PSYCHIATRIC Hx Psychophysiologic Disorder: Yes Hx Substance Use: No Other/Comment: Developmental delay. - SURGICAL HISTORY Hx Cardiac Catheterization: Yes Hx Coronary Stent: Yes Other/Comment: cardiac cath, pacemaker with internal defribilator, rcw hd cath - ANESTHESIA Hx Anesthesia: Yes Hx Anesthesia Reactions: No Hx Malignant Hyperthermia: No Meds Allergies/Adverse Reactions: Allergies Allergy/AdvReac Type Severity Reaction Status Date / Time No Known Allergies Allergy Verified 02/27/18 18:07 - Medications Medications: Current Medications Amiodarone HCl (Cordarone) 200 mg PO BID [facility] Amiodarone HCl (Cordarone) 400 mg PO TID [facility] Stop: 06/22/18 14:01 Last Admin: 06/21/18 14:36 Dose: Not Given Aspirin (Ecotrin) 81 mg PO DAILY [facility] Last Admin: 06/21/18 15:13 Dose: 81 mg Atorvastatin Calcium (Lipitor) 40 mg PO DAILY [facility] Last Admin: 06/21/18 15:13 Dose: 40 mg Carvedilol (Coreg) 3.125 mg PO Q12 [facility] Cinacalcet (Sensipar) 30 mg PO DAILY [facility] Last Admin: 06/21/18 15:13 Dose: 30 mg Clopidogrel Bisulfate (Plavix) 75 mg PO DAILY [facility] Last Admin: 06/21/18 15:13 Dose: 75 mg Dextrose (Dextrose 50% Inj) 0 ml IV STAT PRN; Protocol PRN Reason: Hypoglycemia Protocol Heparin Sodium (Porcine) (Heparin) 5,000 units SC Q8 [facility]; Protocol Last Admin: 06/21/18 15:13 Dose: 5,000 units Dextrose (Dextrose 5% In Water 1000 Ml) 1,000 mls @ 0 mls/hr IV .Q0M PRN; Protocol PRN Reason: Hypoglycemia Protocol Insulin Human Lispro (Humalog Low) 0 units SC ACHS [facility]; Protocol Last Admin: 06/21/18 14:42 Dose: Not Given Lactic Acid (Lac-Hydrin 12% Cream (140 G)) 0 ea TOP BID [facility] Last Admin: 06/21/18 10:00 Dose: Not Given Levothyroxine Sodium (Synthroid) 125 mcg PO 0600 [facility] Last Admin: 06/21/18 05:44 Dose: 125 mcg Losartan Potassium (Cozaar) 25 mg PO TTS [facility] Non-Formulary Medication (Ferric Citrate [Auryxia]) 2 tab PO TID [facility] Last Admin: 06/21/18 14:37 Dose: Not Given Tramadol HCl (Ultram) 50 mg PO Q12 PRN PRN Reason: Pain, moderate (4-7) Vitamin B Complex/Vit C/Folic Acid (Nephro-Mali) 1 tab PO 0800 [facility] Results - Vital Signs Recent Vital Signs: Last Vital Signs Temp 97.5 F L 06/21/18 06:00 Pulse 95 H 06/21/18 14:36 Resp 19 06/21/18 06:00 BP 89/54 L 06/21/18 14:36 Pulse Ox 96 06/21/18 06:00 - Labs Result Diagrams: 06/21/18 07:00 06/21/18 07:00 Labs: Laboratory Results - last 24 hr 06/20/18 06/21/18 06/21/18 16:37 05:00 07:00 WBC 11.8 H RBC 3.89 Hgb 12.4 L Hct 37.2 L MCV 95.6 MCH 31.9 MCHC 33.3 RDW 14.3 Plt Count 262 MPV 10.7 Neut % (Auto) 72.0 H Lymph % (Auto) 14.5 L Pettis % (Auto) 10.4 H Eos % (Auto) 2.6 Baso % (Auto) 0.5 Lymph # (Auto) 1.7 Pettis # (Auto) 1.2 H Eos # (Auto) 0.3 Baso # (Auto) 0.06 Absolute Neuts (auto) 8.47 H Sodium Potassium Chloride Carbon Dioxide Anion Gap BUN Creatinine Est GFR ( Amer) Est GFR (Non-Af Amer) POC Glucose (mg/dL) 133 H Random Glucose Calcium Phosphorus Magnesium Total Bilirubin AST ALT Alkaline Phosphatase Total Protein Albumin Globulin Albumin/Globulin Ratio Triglycerides Cholesterol LDL Cholesterol Direct HDL Cholesterol TSH 3rd Generation 0.19 L 06/21/18 06/21/18 06/21/18 07:00 07:30 14:35 WBC RBC Hgb Hct MCV MCH MCHC RDW Plt Count MPV Neut % (Auto) Lymph % (Auto) Pettis % (Auto) Eos % (Auto) Baso % (Auto) Lymph # (Auto) Pettis # (Auto) Eos # (Auto) Baso # (Auto) Absolute Neuts (auto) Sodium 139 Potassium 4.2 Chloride 99 Carbon Dioxide 27 Anion Gap 18 BUN 50 H Creatinine 7.0 H Est GFR ( Amer) 10 Est GFR (Non-Af Amer) 8 POC Glucose (mg/dL) 105 98 Random Glucose 91 Calcium 8.9 Phosphorus 5.9 H Magnesium 2.1 Total Bilirubin 0.7 AST 18 ALT 13 Alkaline Phosphatase 75 Total Protein 8.0 Albumin 4.2 Globulin 3.8 Albumin/Globulin Ratio 1.1 Triglycerides 236 H Cholesterol 156 LDL Cholesterol Direct 74 HDL Cholesterol 30 TSH 3rd Generation
[2018-06-22] MEDS: Levothyroxine 125 MCG TAB PO SCH (05:27)
[2018-06-22 05:50] VITALS: RESP 18
[2018-06-22] MEDS: Insulin Lispro (humaLOG) LOW Coverage SC SCH ×2 (07:44→12:41)
[2018-06-22 07:46] LABS: BASO # 0.04 K/mm3 (0.0-2.0); BASO % 0.3 % (0.0-3.0); EOS # 0.4 (0.0-0.7); EOS % 2.7 % (1.5-5.0); HEMOGLOBIN 12.7 g/dL (14.0-18.0); LYMPH # 1.5 (1.2-3.4); LYMPH % 10.5 % (22.0-35.0); MEAN CELL VOLUME 95.9 fl (80.0-105.0); MEAN CORPUSCULAR HEMOGLOBIN 30.8 pg (25.0-35.0); MEAN CORPUSCULAR HGB CONC 32.1 g/dl (31.0-37.0); MEAN PLATELET VOLUME 10.8 fl (7.0-11.0); MONO # 1.5 (0.1-0.6); RBC 4.13 10^6/uL (3.5-6.1); RED CELL DISTRIBUTION WIDTH 14.2 % (11.5-14.5); WHITE BLOOD COUNT 13.9 10^3/uL (4.5-11.0)
[2018-06-22] MEDS ORDERED: Multivitamin Vitamin B Complex (Nephro-Vite) Tab PO SCH (08:00)
[2018-06-22 08:05] LABS: ALBUMIN 4.1 g/dL (3.0-4.8)
[2018-06-22 08:28] LABS: FREE T4 1.85 ng/dL (0.78-2.19)
[2018-06-22] MEDS ORDERED: Levothyroxine 75 MCG TAB PO SCH (09:43)
--- NOTE | 2018-06-22 09:54 | CP.PCM.PN ---
Subjective - Date & Time of Evaluation Date of Evaluation: 06/22/18 Time of Evaluation: 06:35 - Subjective Subjective: Awake, no distress, lying in bed Reason for consultation and follow up: Cardiac evaluation of syncope, history of cardiomyopathy, post AICD Seen and examined by me and Dr. Pineda Objective - Vital Signs/Intake and Output Vital Signs (last 24 hours): Temp Pulse Resp BP Pulse Ox 97.5 F L 102 H 18 103/71 100 06/22/18 05:49 06/22/18 05:49 06/22/18 05:49 06/22/18 05:49 06/22/18 05:49 Intake and Output: 06/22/18 06/22/18 06:59 18:59 Intake Total 240 Balance 240 - Medications Medications: Current Medications Amiodarone HCl (Cordarone) 400 mg PO TID [facility] Stop: 06/22/18 14:01 Last Admin: 06/21/18 18:03 Dose: Not Given Amiodarone HCl (Cordarone) 200 mg PO DAILY [facility] Aspirin (Ecotrin) 81 mg PO DAILY [facility] Last Admin: 06/21/18 15:13 Dose: 81 mg Atorvastatin Calcium (Lipitor) 40 mg PO DAILY [facility] Last Admin: 06/21/18 15:13 Dose: 40 mg Carvedilol (Coreg) 3.125 mg PO Q12 [facility] Last Admin: 06/21/18 22:13 Dose: Not Given Cinacalcet (Sensipar) 30 mg PO DAILY [facility] Last Admin: 06/21/18 15:13 Dose: 30 mg Clopidogrel Bisulfate (Plavix) 75 mg PO DAILY [facility] Last Admin: 06/21/18 15:13 Dose: 75 mg Dextrose (Dextrose 50% Inj) 0 ml IV STAT PRN; Protocol PRN Reason: Hypoglycemia Protocol Heparin Sodium (Porcine) (Heparin) 5,000 units SC Q8 [facility]; Protocol Last Admin: 06/22/18 05:27 Dose: 5,000 units Dextrose (Dextrose 5% In Water 1000 Ml) 1,000 mls @ 0 mls/hr IV .Q0M PRN; Protocol PRN Reason: Hypoglycemia Protocol Insulin Human Lispro (Humalog Low) 0 units SC ACHS [facility]; Protocol Last Admin: 06/22/18 07:44 Dose: Not Given Lactic Acid (Lac-Hydrin 12% Cream (140 G)) 0 ea TOP BID [facility] Last Admin: 06/21/18 18:10 Dose: 1 applic Levothyroxine Sodium (Synthroid) 75 mcg PO 0600 [facility] Losartan Potassium (Cozaar) 25 mg PO TTS [facility] Non-Formulary Medication (Ferric Citrate [Auryxia]) 2 tab PO TID [facility] Last Admin: 06/21/18 18:02 Dose: Not Given Tramadol HCl (Ultram) 50 mg PO Q12 PRN PRN Reason: Pain, moderate (4-7) Vitamin B Complex/Vit C/Folic Acid (Nephro-Mali) 1 tab PO 0800 [facility] Last Admin: 06/22/18 08:06 Dose: 1 tab - Labs Labs: 06/22/18 06:45 06/22/18 06:45 PT 12.6 SECONDS (9.4-12.5) H 06/19/18 20:30 INR 1.14 06/19/18 20:30 APTT 34.3 Seconds (26.9-38.3) 06/19/18 20:30 - Constitutional Appears: Non-toxic, No Acute Distress - Head Exam Head Exam: NORMAL INSPECTION, NORMOCEPHALIC - Eye Exam Eye Exam: Normal appearance Pupil Exam: NORMAL ACCOMODATION - ENT Exam ENT Exam: Mucous Membranes Moist, Normal Exam - Respiratory Exam Respiratory Exam: Decreased Breath Sounds, Clear to Ausculation Bilateral, NORMAL BREATHING PATTERN - Cardiovascular Exam Cardiovascular Exam: +S1, +S2 Additional comments: AICD - GI/Abdominal Exam GI & Abdominal Exam: Soft, Normal Bowel Sounds - Exam Additional comments: ESRD, on hemodialysis 3x a week - Extremities Exam Extremities Exam: Full ROM, Normal Capillary Refill - Neurological Exam Neurological Exam: Alert, Awake, Oriented x3 - Psychiatric Exam Psychiatric exam: Normal Affect, Normal Mood - Skin Skin Exam: Dry, Normal Color, Warm Assessment and Plan - Assessment and Plan (Free Text) Assessment: A 62 year old male who came in to the ER due to syncopal episode. History of congestive heart failure, cardiomyopathy, AICD for low EF, ESRD on hemodialysis MWF, coronary artery disease with stents. developmental delay,diabetes, hypertension,hypothyroidism, BPH, permacath, AICD interrogation on showed runs of Vfib with AICD delivered shock but patient denies feeling the shock. On Amiodarone. Heart rate controlled. Blood pressure stable. Followed by Neuro and renal. Plan: No distress, no further syncopal episodes Heart rate controlled Blood pressure stable On Amiodarone 200 mg daily, ASA 81 mg daily, Coreg 3.125 mg every 12 hours Plavix 75 mg daily, Synthroid 75 mcg daily, Cozaar 25 mg TTS Continue current management Continue current treatment Monitor electrolytes Will follow up Plan and treatment discussed with Dr. Pineda
[2018-06-22] MEDS: FERRIC CITRATE PO SCH ×2 (10:11→13:47)
[2018-06-22 12:24] VITALS: BP 91/64; TEMP 98.2
[2018-06-22] MEDS: Ammonium Lactate 12% Cream (140 g) TOP SCH (12:42)
[2018-06-22 13:43] VITALS: O2SAT 94
--- NOTE | 2018-06-22 14:28 | CP.PCM.PN ---
Subjective - Date & Time of Evaluation Date of Evaluation: 06/22/18 Time of Evaluation: 14:27 - Subjective Subjective: Nephrology Consultation Note: Assessment: Stable Syncope with V fib Diabetic chronic Kidney Disease (E11.22) Hypertensive Chronic Kidney Disease (I12.0) End stage renal disease (N18.6) dependence on hemodialysis (Z99.2) (MWF) via PC Anemia (D64.9), Hyperphosphatemia (E83.39), Secondary Hyperparathyroidism (E21.1), HTN (I12.0) CAD s/p stent , sCHF s/p AICD, developmental delay Plan: plan for dialysis as per [facility] schedule. Continue with Nephrovite 1 tab/day. PRBC as needed for anemia. not on KRYSTAL with dialysis as last Hb 12.4 Continue with phos binders as Auryxia 210 mg 2 tab TID with meals BP control with meds as ordered. will d/c losartan as BP low Glycemic control, Dialysis consistent diet Further work up/management as per primary team Dose meds/antibiotics (if needed) for ESRD status. Avoid fleets enema/magnesium based laxatives. cardiology following. pt started on amiodarone Thanks for allowing me to participate in care of your patient. Will follow patient with you. Please call if any Qs. d/w team Dr Jassi Espitia Office: [phone] Chief Complaint;syncope HPI: Pt is a 62 M with hx of ESRD on hemodialysis (MWF) via PC @ [place] dialysis unit , chronic anemia, hyperphosphatemia, secondary hyperparathyroidism, Diabetes Mellitus, hypertension CAD s/p stent , sCHF s/p AICD, developmental delay presented with complaints of syncope and foudn to have V fib s/p AICD shock, started on amiodarone in hospital Renal consult requested for ESRD management. pt feels in usual health he [place] ROS: Cardiovascular: No chest pain. Pulmonary: No shortness of breath Gastrointestinal: denies abdominal pain No nausea. No vomiting. Genitourinary: No pain while urinating. Denies blood in urine. All other negative except as mentioned in HPI. overall hx limited from pt and not very reliable. Physical Examination: General Appearance: Comfortable, in no acute respiratory distress, co-operative . Vitals reviewed and noted as below Head; Atraumatic, normocephalic ENT: no ulcers no thrush. Tongue is midline. Oropharynx: no rash or ulcers. EYES: Pupils are equal, round and reactive to light accommodation. Eye muscles and extraocular movement intact. Sclera is anicteric. Neck; supple no lymphadenopathy, no thyromegaly or bruit Lungs: Normal respiratory rate/effort. Breath sounds bilateral equal and clear Heart: Normal rate. s1s2 normal. No rub or gallop. Extremities: no edema. No varicose veins Neurological: Patient is alert, awake and oriented to person, place and time. No focal deficit. Strength bilateral appropriate and equal Skin: Warm and dry. Normal turgor. No rash. Palpitation: Normal elasticity for age Abdomen: Abdomen is soft. Bowel sounds +. There is no abdominal tenderness, no guarding/rigidity or organomegaly Psych: lack insight and normal affect/mood MSK: no joint tenderness or swelling. Digits and nails normal, no deformity : kidney or bladder not palpable Access: PC. left AVF maturing Labs/imaging reviewed. Past medical history, past surgical history, family history, social history, allergy reviewed and noted as below Family Hx: no hx of CKD. Non contributory Objective - Vital Signs/Intake and Output Vital Signs (last 24 hours): Temp Pulse Resp BP Pulse Ox 98.2 F 96 H 18 91/64 L 94 L 06/22/18 12:00 06/22/18 12:00 06/22/18 12:00 06/22/18 12:00 06/22/18 13:09 Intake and Output: 06/22/18 06/22/18 06:59 18:59 Intake Total 240 Balance 240 - Medications Medications: Current Medications Amiodarone HCl (Cordarone) 200 mg PO DAILY [facility] Last Admin: 06/22/18 10:09 Dose: 200 mg Amiodarone HCl (Cordarone) 200 mg PO ONCE ONE Stop: 06/22/18 18:01 Aspirin (Ecotrin) 81 mg PO DAILY [facility] Last Admin: 06/22/18 10:10 Dose: 81 mg Atorvastatin Calcium (Lipitor) 40 mg PO DAILY [facility] Last Admin: 06/22/18 10:10 Dose: 40 mg Carvedilol (Coreg) 3.125 mg PO Q12 [facility] Last Admin: 06/22/18 10:10 Dose: 3.125 mg Cinacalcet (Sensipar) 30 mg PO DAILY [facility] Last Admin: 06/22/18 10:10 Dose: 30 mg Clopidogrel Bisulfate (Plavix) 75 mg PO DAILY [facility] Last Admin: 06/22/18 10:10 Dose: 75 mg Dextrose (Dextrose 50% Inj) 0 ml IV STAT PRN; Protocol PRN Reason: Hypoglycemia Protocol Heparin Sodium (Porcine) (Heparin) 5,000 units SC Q8 [facility]; Protocol Last Admin: 06/22/18 13:42 Dose: 5,000 units Dextrose (Dextrose 5% In Water 1000 Ml) 1,000 mls @ 0 mls/hr IV .Q0M PRN; Protocol PRN Reason: Hypoglycemia Protocol Insulin Human Lispro (Humalog Low) 0 units SC ACHS [facility]; Protocol Last Admin: 06/22/18 12:41 Dose: 1 u Lactic Acid (Lac-Hydrin 12% Cream (140 G)) 0 ea TOP BID [facility] Last Admin: 06/22/18 12:42 Dose: 1 applic Levothyroxine Sodium (Synthroid) 75 mcg PO 0600 [facility] Non-Formulary Medication (Ferric Citrate [Auryxia]) 2 tab PO TID [facility] Last Admin: 06/22/18 13:47 Dose: Not Given Tramadol HCl (Ultram) 50 mg PO Q12 PRN PRN Reason: Pain, moderate (4-7) Vitamin B Complex/Vit C/Folic Acid (Nephro-Mali) 1 tab PO 0800 [facility] Last Admin: 06/22/18 08:06 Dose: 1 tab - Labs Labs: 06/22/18 06:45 06/22/18 06:45 PT 12.6 SECONDS (9.4-12.5) H 06/19/18 20:30 INR 1.14 06/19/18 20:30 APTT 34.3 Seconds (26.9-38.3) 06/19/18 20:30
[2018-06-22 14:48] VITALS: PULSE 90
--- NOTE | 2018-06-22 14:52 | CP.PCM.DIS ---
<Ovidio Hollingsworth - Last Filed: 06/22/18 14:42> Provider - Provider Date of Admission: 06/20/18 12:45 Attending physician: Ayad Corbin MD Consults: 06/20/18 07:20 Neurology Consult Routine Comment: Consulting Provider: Néstor Villatoro Consulting Physician: Néstor Villatoro Reason for Consult: syncope 06/20/18 10:18 Cardiology Consult Routine Comment: Consulting Provider: Ayad Moreau Consulting Physician: Ayad Moreau Reason for Consult: syncope 06/20/18 14:17 Physician Consult Routine Comment: Consulting Provider: Jassi Espitia Consulting Physician: Jassi Espitia Reason for Consult: ESRD on HD (MWF) 06/22/18 07:41 Discharge Planning [Case Management Referral] Routine Comment: Physician Instructions: Reason For Exam: Reason for Referral: Discharge Planning Time Spent in preparation of Discharge (in minutes): 35 Hospital Course - Lab Results Lab Results: Most Recent Lab Values WBC 13.9 10^3/uL (4.5-11.0) H 06/22/18 06:45 RBC 4.13 10^6/uL (3.5-6.1) 06/22/18 06:45 Hgb 12.7 g/dL (14.0-18.0) L 06/22/18 06:45 Hct 39.6 % (42.0-52.0) L 06/22/18 06:45 MCV 95.9 fl (80.0-105.0) 06/22/18 06:45 MCH 30.8 pg (25.0-35.0) 06/22/18 06:45 MCHC 32.1 g/dl (31.0-37.0) 06/22/18 06:45 RDW 14.2 % (11.5-14.5) 06/22/18 06:45 Plt Count 284 10^3/uL (120.0-450.0) 06/22/18 06:45 MPV 10.8 fl (7.0-11.0) 06/22/18 06:45 Neut % (Auto) 75.5 % (50.0-68.0) H 06/22/18 06:45 Lymph % (Auto) 10.5 % (22.0-35.0) L 06/22/18 06:45 [place] % (Auto) 11.0 % (1.0-6.0) H 06/22/18 06:45 Eos % (Auto) 2.7 % (1.5-5.0) 06/22/18 06:45 Baso % (Auto) 0.3 % (0.0-3.0) 06/22/18 06:45 Lymph # (Auto) 1.5 (1.2-3.4) 06/22/18 06:45 [place] # (Auto) 1.5 (0.1-0.6) H 06/22/18 06:45 Eos # (Auto) 0.4 (0.0-0.7) 06/22/18 06:45 Baso # (Auto) 0.04 K/mm3 (0.0-2.0) 06/22/18 06:45 Absolute Neuts (auto) 10.47 (1.4-6.5) H 06/22/18 06:45 PT 12.6 SECONDS (9.4-12.5) H 06/19/18 20:30 INR 1.14 06/19/18 20:30 APTT 34.3 Seconds (26.9-38.3) 06/19/18 20:30 Sodium 138 mmol/L (132-148) 06/22/18 06:45 Potassium 4.8 mmol/L (3.6-5.0) 06/22/18 06:45 Chloride 101 mmol/L (98-107) 06/22/18 06:45 Carbon Dioxide 24 mmol/L (21-33) 06/22/18 06:45 Anion Gap 19 (10-20) 06/22/18 06:45 BUN 37 mg/dL (7-21) H 06/22/18 06:45 Creatinine 5.6 mg/dl (0.8-1.5) H 06/22/18 06:45 Est GFR ( Amer) 13 06/22/18 06:45 Est GFR (Non-Af Amer) 10 06/22/18 06:45 POC Glucose (mg/dL) 156 mg/dL (65-110) H 06/22/18 11:30 Random Glucose 126 mg/dL (70-110) H 06/22/18 06:45 Hemoglobin A1c 6.8 % (4.2-6.5) H 06/20/18 08:20 Calcium 9.0 mg/dL (8.4-10.5) 06/22/18 06:45 Phosphorus 4.7 mg/dL (2.5-4.5) H 06/22/18 06:45 Magnesium 2.1 mg/dL (1.7-2.2) 06/22/18 06:45 Total Bilirubin 1.0 mg/dL (0.2-1.3) 06/22/18 06:45 AST 15 U/L (17-59) L 06/22/18 06:45 ALT 10 U/L (7-56) 06/22/18 06:45 Alkaline Phosphatase 81 U/L (38-126) 06/22/18 06:45 Lactate Dehydrogenase 567 U/L (333-699) 06/19/18 20:30 Total Creatine Kinase 43 U/L (35-230) 06/19/18 20:30 Troponin I 0.07 ng/mL 06/19/18 20:30 Total Protein 8.1 g/dL (5.8-8.3) 06/22/18 06:45 Albumin 4.1 g/dL (3.0-4.8) 06/22/18 06:45 Globulin 3.9 gm/dL 06/22/18 06:45 Albumin/Globulin Ratio 1.0 (1.1-1.8) L 06/22/18 06:45 Triglycerides 236 mg/dL (35-160) H 06/21/18 07:00 Cholesterol 156 mg/dL (130-200) 06/21/18 07:00 LDL Cholesterol Direct 74 mg/dL (0-129) 06/21/18 07:00 HDL Cholesterol 30 mg/dL (29-60) 06/21/18 07:00 Free T4 1.85 ng/dL (0.78-2.19) 06/22/18 06:45 Free T3 pg/mL 3.39 pg/mL (2.77-5.27) 06/22/18 06:45 TSH 3rd Generation 0.18 mIU/mL (0.46-4.68) L 06/22/18 06:45 - Hospital Course Hospital Course: Ovidio Hollingsworth, PGY1 Discharge Summary for Dr. Corbin Patient is a 62 year old male with PMHx CHF s/p AICD ([employer]) with EF 20%, ESRD on HD MWF, CAD s/p PCI, developmental delay, who presented to the ED following a witnessed syncopal episode. Per patient, his oak tanner Helga noticed patient to have episode where he was sitting on his couch watching TV and his eyes rolled backwards which lasted about 30 seconds. Patient had no recollection of syncopizing and does not recall losing consciousness. He denied ever experiencing any dizziness, lightheadedness, vision changes/blurry vision, focal weakness, numbness or tingling. Per patient, he did not feel like his AICD delivered a shock. Patient also had dialysis earlier in the afternoon but was asymptomatic at that time. Patient admitted for syncope. Neurology and cardiology was placed on consult. Head CT did not show any acute issues - only chronic microvascular changes. No arrythmias were noted on his EKG. However, given his AICD, it needed interrogation. Upon interrogation, it was found that he actually had ventricular fibrillation. As a result, patient was loaded on PO amiodarone by cardio. Thus, patient's syncopal episode was likely due to AICD firing from vfib. Patient had some hypotension during hospital course but it improved. His symptoms were also resolved once he arrived to [facility]. Nephrology was also on consult because he was pending HD based on his normal schedule. Patient also had a mild leukocytosis but it is likely reactive because there is no signs of infection. TSH was noted to be low, as a result his synthroid home med was lowered. PT recommended that patient is safe to discharge home. Upon reviewing all labs, imaging, and vitals, patient is safe for discharge. He will follow up with his PMD and Accreditation Coordinator as outpatient. Discharge Exam - Head Exam Head Exam: NORMAL INSPECTION, NORMOCEPHALIC - Eye Exam Eye Exam: EOMI, Normal appearance Pupil Exam: NORMAL ACCOMODATION - ENT Exam ENT Exam: Mucous Membranes Moist - Respiratory Exam Respiratory Exam: Clear to PA & Lateral. absent: Accessory Muscle Use, Chest Wall Tenderness, Rales, Rhonchi, Wheezes, Respiratory Distress - Cardiovascular Exam Cardiovascular Exam: RRR, +S1, +S2 - GI/Abdominal Exam GI & Abdominal Exam: Normal Bowel Sounds - Extremities Exam Extremities exam: normal capillary refill, pedal pulses present - Back Exam Back exam: NORMAL INSPECTION - Neurological Exam Neurological exam: Alert, CN II-XII Intact, Normal Gait, Oriented x3, Reflexes Normal - Psychiatric Exam Psychiatric exam: Normal Affect, Normal Mood - Skin Skin Exam: Dry, Intact, Normal Color, Warm Discharge Plan - Discharge Medications Prescriptions: Amiodarone [Cordarone] 200 mg PO DAILY #14 tab Levothyroxine [Synthroid] 75 mcg PO 0600 #14 tab Vitamin B Complex/Vit C/Folic [Nephro-Rc] 1 tab PO 0800 #14 tab - Follow Up Plan Condition: STABLE Disposition: HOME/ ROUTINE Patient education suggested?: Yes Instructions: Ventricular Fibrillation, Automatic Cardioverter Defibrillator Implantation, Syncope (Fainting) (DC) Additional Instructions: Please follow-up with your PMD, Dr Ortiz, within 7 days of discharge. Please follow-up with your cardiologists Dr Wright and Dr Flores within 7 days and please let him/her know that your pacemaker fired due to ventricular fibrillation. You are being discharged on a medication called Amiodarone 200mg once a day. Your TSH level was low thus we decreased your synthroid - you should now take synthroid 75mcg every morning. After 6-8 weeks please have your PMD re-check your TSH level. We have DISCONTINUED your losartan - please do not take this medication going forward - your supervisor of operations, Dr Helms, will decide when to resume this medication. Your white blood cell count was mildly elevated. It is likely a reactive process and not infectious. We recommend you get a CBC blood test when you go see your primary care doctor. You may resume all other home medications (except as stated above) as prescribed. The new/adjusted medications were delivered to you at bedside. Your current medication regimen is as follows: 1. Aspirin 81mg once a day at 10AM 2. Amiodarone 200mg once a day at 10AM 3. Synthroid 75mcg once a day upon waking 4. Lipitor 40mg once a day at bedtime 5. Cinacalcet 30mg once a day at 10AM 6. Glimepiride 2mg with breakfast and dinner 7. Coreg 3.125mg once at 10AM and once at 6PM 8. Nephro-rc tablet once at 10AM 9. Plavix 75mg once a day at 10AM 10. Ferric Citrate 2 tablets with breakfast, lunch and dinner 11. Tramadol 50mg every 12 hours only as needed for pain relief If symptoms return, please promptly go to your nearest emergency department. RN Note MD team authorizes discharge back to [facility]. He is reminded to follow the instructions above. Discharge instructions and medication list reviewed with patient. Pt encouraged to review at his earliest convenience. Pt instructed to contact medical personal in charge if he has worsening of symptoms, such as difficult breathing, unusual bleeding, temperature over 100F, change in mental status, or severe pain. He is reminded to check the room for his belongings before leaving. <Ayad Corbin - Last Filed: 06/23/18 07:48> Provider - Provider Date of Admission: 06/20/18 12:45 Attending physician: Ayad Corbin MD Consults: 06/20/18 07:20 Neurology Consult Routine Comment: Consulting Provider: Néstor Villatoro Consulting Physician: Néstor Villatoro Reason for Consult: syncope 06/20/18 10:18 Cardiology Consult Routine Comment: Consulting Provider: Ayad Moreau Consulting Physician: Ayad Moreau Reason for Consult: syncope 06/20/18 14:17 Physician Consult Routine Comment: Consulting Provider: Jassi Espitia Consulting Physician: Jassi Espitia Reason for Consult: ESRD on HD (MWF) 06/22/18 07:41 Discharge Planning [Case Management Referral] Routine Comment: Physician Instructions: Reason For Exam: Reason for Referral: Discharge Planning Hospital Course - Lab Results Lab Results: Most Recent Lab Values WBC 13.9 10^3/uL (4.5-11.0) H 06/22/18 06:45 RBC 4.13 10^6/uL (3.5-6.1) 06/22/18 06:45 Hgb 12.7 g/dL (14.0-18.0) L 06/22/18 06:45 Hct 39.6 % (42.0-52.0) L 06/22/18 06:45 MCV 95.9 fl (80.0-105.0) 06/22/18 06:45 MCH 30.8 pg (25.0-35.0) 06/22/18 06:45 MCHC 32.1 g/dl (31.0-37.0) 06/22/18 06:45 RDW 14.2 % (11.5-14.5) 06/22/18 06:45 Plt Count 284 10^3/uL (120.0-450.0) 06/22/18 06:45 MPV 10.8 fl (7.0-11.0) 06/22/18 06:45 Neut % (Auto) 75.5 % (50.0-68.0) H 06/22/18 06:45 Lymph % (Auto) 10.5 % (22.0-35.0) L 06/22/18 06:45 [place] % (Auto) 11.0 % (1.0-6.0) H 06/22/18 06:45 Eos % (Auto) 2.7 % (1.5-5.0) 06/22/18 06:45 Baso % (Auto) 0.3 % (0.0-3.0) 06/22/18 06:45 Lymph # (Auto) 1.5 (1.2-3.4) 06/22/18 06:45 [place] # (Auto) 1.5 (0.1-0.6) H 06/22/18 06:45 Eos # (Auto) 0.4 (0.0-0.7) 06/22/18 06:45 Baso # (Auto) 0.04 K/mm3 (0.0-2.0) 06/22/18 06:45 Absolute Neuts (auto) 10.47 (1.4-6.5) H 06/22/18 06:45 PT 12.6 SECONDS (9.4-12.5) H 06/19/18 20:30 INR 1.14 06/19/18 20:30 APTT 34.3 Seconds (26.9-38.3) 06/19/18 20:30 Sodium 138 mmol/L (132-148) 06/22/18 06:45 Potassium 4.8 mmol/L (3.6-5.0) 06/22/18 06:45 Chloride 101 mmol/L (98-107) 06/22/18 06:45 Carbon Dioxide 24 mmol/L (21-33) 06/22/18 06:45 Anion Gap 19 (10-20) 06/22/18 06:45 BUN 37 mg/dL (7-21) H 06/22/18 06:45 Creatinine 5.6 mg/dl (0.8-1.5) H 06/22/18 06:45 Est GFR ( Amer) 13 06/22/18 06:45 Est GFR (Non-Af Amer) 10 06/22/18 06:45 POC Glucose (mg/dL) 156 mg/dL (65-110) H 06/22/18 11:30 Random Glucose 126 mg/dL (70-110) H 06/22/18 06:45 Hemoglobin A1c 6.8 % (4.2-6.5) H 06/20/18 08:20 Calcium 9.0 mg/dL (8.4-10.5) 06/22/18 06:45 Phosphorus 4.7 mg/dL (2.5-4.5) H 06/22/18 06:45 Magnesium 2.1 mg/dL (1.7-2.2) 06/22/18 06:45 Total Bilirubin 1.0 mg/dL (0.2-1.3) 06/22/18 06:45 AST 15 U/L (17-59) L 06/22/18 06:45 ALT 10 U/L (7-56) 06/22/18 06:45 Alkaline Phosphatase 81 U/L (38-126) 06/22/18 06:45 Lactate Dehydrogenase 567 U/L (333-699) 06/19/18 20:30 Total Creatine Kinase 43 U/L (35-230) 06/19/18 20:30 Troponin I 0.07 ng/mL 06/19/18 20:30 Total Protein 8.1 g/dL (5.8-8.3) 06/22/18 06:45 Albumin 4.1 g/dL (3.0-4.8) 06/22/18 06:45 Globulin 3.9 gm/dL 06/22/18 06:45 Albumin/Globulin Ratio 1.0 (1.1-1.8) L 06/22/18 06:45 Triglycerides 236 mg/dL (35-160) H 06/21/18 07:00 Cholesterol 156 mg/dL (130-200) 06/21/18 07:00 LDL Cholesterol Direct 74 mg/dL (0-129) 06/21/18 07:00 HDL Cholesterol 30 mg/dL (29-60) 06/21/18 07:00 Free T4 1.85 ng/dL (0.78-2.19) 06/22/18 06:45 Free T3 pg/mL 3.39 pg/mL (2.77-5.27) 06/22/18 06:45 TSH 3rd Generation 0.18 mIU/mL (0.46-4.68) L 06/22/18 06:45 Attending/Attestation - Attestation I have personally seen and examined this patient.: Yes I have fully participated in the care of the patient.: Yes I have reviewed all pertinent clinical information, including history, physical exam and plan: Yes Notes (Text): 06/23/18 07:46 Medical record note made by the resident after discussion with my direction and input after the patient was personally seen and examined by me. I have reviewed the chart and agree that the record accurately reflects by personal performance of the history, physical exam, data review, and medical decision-making, in the course for the patient. I have also personally directed the plan of care. 62 yrs old Male with pMH of CAD s/p PCI, HTN, CHF with systolic dysfunction EF 20% on last Echo 10/2017, SP AICD , ESRD (HD MWF), DM II (A1c 7.2), Hypothyroidism, BPH, and Mild Developmental Delay who presented to [facility] for syncopal episode. Patient's syncopal episode is likely due to ventricular fibrillation firing as discovered from his AICD interrogation. Patient was evaluated by cardiology and was started on Amiodrone. Patient is also found to have low TSH level, levothyroxine dose has been reduced to 75 mcg daily.He will need repeat TSH level in 6-8 weeks. EEG is normal, no evidence of seizure, Keppra is discontinued.
== END 2018-06-22 16:00 | disposition home or self-care (01) | DRG 544 ==
LOC: ED 19:36 → ERH 23:24 → 2RSO 06-20 00:20 → OBSVTOIN 06-20 12:45 → INTOOBSV 06-21 12:45
PROVIDERS: ADMIT Internal Medicine; ATTEND Internal Medicine
PROC: 4B02XTZ Measurement of Cardiac Defibrillator, External Approach (ICD-10-PCS; principal; 2018-06-20)
PROC: 5A1D70Z Performance of Urinary Filtration, Intermittent, Less than 6 Hours Per Day (ICD-10-PCS; 2018-06-21)
DX: I49.01 Ventricular fibrillation (principal); I50.20 Unspecified systolic (congestive) heart failure; I13.2 Hypertensive heart and chronic kidney disease with heart failure and with stage 5 chronic kidney disease, or end stage renal disease; E11.22 Type 2 diabetes mellitus with diabetic chronic kidney disease; J44.9 Chronic obstructive pulmonary disease, unspecified; I42.9 Cardiomyopathy, unspecified; N18.6 End stage renal disease; I25.10 Atherosclerotic heart disease of native coronary artery without angina pectoris; I87.2 Venous insufficiency (chronic) (peripheral); E03.9 Hypothyroidism, unspecified; E83.39 Other disorders of phosphorus metabolism; N25.81 Secondary hyperparathyroidism of renal origin; D64.9 Anemia, unspecified; G93.89 Other specified disorders of brain; N40.0 Benign prostatic hyperplasia without lower urinary tract symptoms; E78.00 Pure hypercholesterolemia, unspecified; F79 Unspecified intellectual disabilities; Z99.2 Dependence on renal dialysis; Z95.810 Presence of automatic (implantable) cardiac defibrillator; Z95.5 Presence of coronary angioplasty implant and graft; Z79.02 Long term (current) use of antithrombotics/antiplatelets; Z79.82 Long term (current) use of aspirin; Z79.84 Long term (current) use of oral hypoglycemic drugs; Z79.890 Hormone replacement therapy; Z79.899 Other long term (current) drug therapy